=== PATIENT | female | born 1955 | race Caucasian/White ===

== ENCOUNTER → 2018-09-09 | Outpatient (CLI) | payer MEDICARE, OTHER ==
--- NOTE | 2018-09-09 10:49 | RAD ---
MR of the left shoulder Indication: Left shoulder pain for 6 months. No known injury. Technique: Standard multiplanar sequences are obtained. Findings: Artifact: There is motion degradation, as well as the limitations due to body habitus. Acromioclavicular joint: Mildly degenerative. Rotator cuff: * Supraspinatus-infraspinatus tendon: Tendinosis. No large or full-thickness rupture. * Subscapularis tendon: Tendinosis. No definite full-thickness or high-grade tear. * Muscle bulk: Moderate atrophy * Subacromial subdeltoid bursa: No significant effusion. Fluid: Moderate glenohumeral effusion. Glenohumeral cartilage: Severe chondral loss with subchondral bone flattening and volume loss. Subchondral edema and cysts. Labrum: Diffuse degeneration. Degenerative tearing of at least the superior labrum. Biceps tendon: Poorly seen Bones: Heterogeneous marrow signal with edema in the proximal humerus and glenoid may be reactive or degenerative. No aggressive bone destruction is seen. Soft tissue: No acute findings. Impression: 1. Exam limited by motion. 2. Rotator cuff tendinosis without large full-thickness tear. 3. Severe primary glenohumeral joint osteoarthritis. 4. Moderate joint effusion. 5. Circumferential labral degeneration, with tearing of at least the superior labrum. 6. Poorly seen biceps tendon, likely due to a tear. Electronically signed by: Sukh Lopez MD (09/09/2018 10:46 AM) [facility]
== END | disposition home or self-care (01) ==
LOC: MRI 09:32
PROVIDERS: ATTEND Internal Medicine
DX: S43.492A Other sprain of left shoulder joint, initial encounter (principal); M19.012 Primary osteoarthritis, left shoulder; M25.412 Effusion, left shoulder; M85.612 Other cyst of bone, left shoulder; M62.512 Muscle wasting and atrophy, not elsewhere classified, left shoulder; R60.0 Localized edema; X58.XXXA Exposure to other specified factors, initial encounter; Y93.89 Activity, other specified; Y92.89 Other specified places as the place of occurrence of the external cause; Y99.8 Other external cause status
CPT/HCPCS: 73221

== ENCOUNTER 2019-02-02 09:21 | Inpatient (IN) | payer MEDICARE, OTHER ==
[~2019-02-02] VITALS: Ht 165.1 cm; Wt 142.7 kg
[2019-02-02] MEDS ORDERED: cefTRIAXone IV Push 1 GM VIAL. IVP ONE (09:45)
--- NOTE | 2019-02-02 10:07 | RAD ---
CHEST AP ONLY Clinical Indication: FEVER Comparison: Two-view chest, June 11, 2005. CT chest with contrast, December 05, 2017. Findings: Patient is rotated. Mild cardiomegaly. Thickening of the right paratracheal stripe. Borderline fullness at the AP window. Right upper lung airspace disease. Bilateral perihilar opacities may be due to adenopathy as was seen on prior CT. Linear opacity in the left midlung. Mild bibasilar airspace disease. No pleural effusion or pneumothorax. Degenerative arthropathy of the shoulders. IMPRESSION: 1. Bilateral infiltrates. 2. Suspect mediastinal and bilateral hilar adenopathy, as was seen on prior CT. Electronically signed by: Adam Inman MD (02/02/2019 10:04 AM) [id number]
[2019-02-02 10:17] LABS: BASO # 0.1 x10^3/uL (0.0-0.2); BASO % 0 % (0-3); EOS % 0 % (0-3); HEMATOCRIT 41.1 % (36.0-47.0); LYMPH # 0.3 x10^3/uL (1.0-4.8); LYMPH % 1 % (24-48); MEAN CORPUSCULAR HEMOGLOBIN 25 pg (25-35); MEAN CORPUSCULAR HGB CONC 32 g/dL (31-37); MEAN CORPUSCULAR VOLUME 78 fL (79-100); MONO % 4 % (0-9); NEUT # 27.6 x10^3uL (1.8-7.7); NEUT % 95 % (31-73); PLATELET COUNT 206 x10^3/uL (140-400); RED BLOOD COUNT 5.26 x10^6/uL (3.50-5.40); RED CELL DISTRIBUTION WIDTH 15.8 % (11.5-14.5); WHITE BLOOD COUNT 29.1 x10^3/uL (4.0-11.0)
[2019-02-02 10:20] LABS: CALCIUM 9.2 mg/dL (8.5-10.1); POTASSIUM 4.1 mmol/L (3.5-5.1)
[2019-02-02 10:25] LABS: ALBUMIN 2.8 g/dL (3.4-5.0); ALBUMIN/GLOBULIN RATIO 0.6 (1.0-1.7); TOTAL BILIRUBIN 0.4 mg/dL (0.2-1.0); TOTAL PROTEIN 7.5 g/dL (6.4-8.2)
[2019-02-02 10:33] LABS: INFLUENZA A PATIENT NEGATIVE (NEGATIVE)
[2019-02-02 10:34] LABS: INFLUENZA B PATIENT NEGATIVE (NEGATIVE)
--- NOTE | 2019-02-02 10:35 | PHYS DOC ---
Adult General Chief Complaint Chief Complaint: ALTERED MENTAL STATUS HPI HPI 63-[facility] female [facility] patient who is wheelchair bound was found by [facility] staff this morning lethargic with altered mental status on the commode. Patient states she just feels terrible. She has some cough and congestion that she states is nonproductive. She's had a recent urinary tract infection. She denies any significant abdominal pain or back pain. She has not had any skin lesions that she is aware of. She did have some fever as high as 100 [facility] at the [facility]. She states she feels warm right now.[] Review of Systems Review of Systems Constitutional: Denies fever or chills [] Eyes: Denies change in visual acuity, redness, or eye pain [] HENT: Denies nasal congestion or sore throat [] Respiratory: Reports cough[] Cardiovascular: No additional information not addressed in HPI [] GI: Denies abdominal pain, nausea, vomiting, bloody stools or diarrhea [] : Recent urinary tract infection[] Musculoskeletal: Denies back pain or joint pain [] Integument: Denies rash or skin lesions [] Neurologic: Confusion] Endocrine: Denies polyuria or polydipsia [] All other systems were reviewed and found to be within normal limits, except as documented in this note. Current Medications Current Medications Current Medications Medications (Trade) Dose Ordered Sig/Holden Start Time Stop Time Status Last Admin Dose Admin Ceftriaxone Sodium (Rocephin) 1 gm 1X ONCE 02/02/19 09:45 02/02/19 09:46 UNV Physical Exam Physical Exam Constitutional: Well developed, well nourished, mild distress, non-toxic appearance. [] HENT: Normocephalic, atraumatic, bilateral external ears normal, oropharynx moist, no oral exudates, nose normal. [] Eyes: PERRLA, EOMI, conjunctiva normal, no discharge. [] Neck: Normal range of motion, no tenderness, supple, no stridor. [] Cardiovascular:Heart rate regular rhythm, no murmur [] Lungs & Thorax: Bilateral breath sounds clear to auscultation [] Abdomen: Bowel sounds normal, soft, no tenderness, no masses, no pulsatile masses, morbidly obese. [] Skin: Warm, dry, no erythema, no rash. [] Back: No tenderness, no CVA tenderness. [] Extremities: No tenderness, no cyanosis, no clubbing, ROM intact, no edema. [] Neurologic: Alert and oriented X 3, normal motor function, normal sensory function, no focal deficits noted. [] Psychologic: Affect normal, judgement normal, mood normal. [] Current Patient Data Vital Signs Vital Signs Date Time Temp Pulse Resp B/P (MAP) Pulse Ox O2 Delivery O2 Flow Rate FiO2 02/02/19 09:25 99.1 77 109/59 (76) Room Air 99.1 Lab Values Laboratory Tests Test 02/02/19 09:50 White Blood Count 29.1 x10^3/uL (4.0-11.0) H Red Blood Count 5.26 x10^6/uL (3.50-5.40) Hemoglobin 13.0 g/dL (12.0-15.5) Hematocrit 41.1 % (36.0-47.0) Mean Corpuscular Volume 78 fL (79-100) L Mean Corpuscular Hemoglobin 25 pg (25-35) Mean Corpuscular Hemoglobin Concent 32 g/dL (31-37) Red Cell Distribution Width 15.8 % (11.5-14.5) H Platelet Count 206 x10^3/uL (140-400) Neutrophils (%) (Auto) 95 % (31-73) H Lymphocytes (%) (Auto) 1 % (24-48) L Monocytes (%) (Auto) 4 % (0-9) Eosinophils (%) (Auto) 0 % (0-3) Basophils (%) (Auto) 0 % (0-3) Neutrophils # (Auto) 27.6 x10^3uL (1.8-7.7) H Lymphocytes # (Auto) 0.3 x10^3/uL (1.0-4.8) L Monocytes # (Auto) 1.0 x10^3/uL (0.0-1.1) Eosinophils # (Auto) 0.0 x10^3/uL (0.0-0.7) Basophils # (Auto) 0.1 x10^3/uL (0.0-0.2) Segmented Neutrophils % 68 % (35-66) H Band Neutrophils % 27 % (0-9) H Lymphocytes % 2 % (24-48) L Monocytes % 3 % (0-10) Toxic Granulation Present Platelet Estimate Adequate (ADEQUATE) Large Platelets Present Hypochromasia Slight Anisocytosis Present Sodium Level 131 mmol/L (136-145) L Potassium Level 4.1 mmol/L (3.5-5.1) Chloride Level 92 mmol/L (98-107) L Carbon Dioxide Level 30 mmol/L (21-32) Anion Gap 9 (6-14) Blood Urea Nitrogen 21 mg/dL (7-20) H Creatinine 1.0 mg/dL (0.6-1.0) Estimated GFR (Cockcroft-Gault) 56.0 BUN/Creatinine Ratio 21 (6-20) H Glucose Level 141 mg/dL (70-99) H Lactic Acid Level 3.4 mmol/L (0.4-2.0) H Calcium Level 9.2 mg/dL (8.5-10.1) Total Bilirubin 0.4 mg/dL (0.2-1.0) Aspartate Amino Transferase (AST) 46 U/L (15-37) H Alanine Aminotransferase (ALT) 17 U/L (14-59) Alkaline Phosphatase 95 U/L (46-116) Troponin I Quantitative 0.101 ng/mL (0.000-0.055) Total Protein 7.5 g/dL (6.4-8.2) Albumin 2.8 g/dL (3.4-5.0) L Albumin/Globulin Ratio 0.6 (1.0-1.7) L Procalcitonin 9.11 ng/mL (0.00-0.10) H Influenza Type A Antigen Negative (NEGATIVE) Influenza Type B Antigen Negative (NEGATIVE) Laboratory Tests 02/02/19 09:50 Laboratory Tests 02/02/19 09:50 EKG EKG [] Interpretation Time: EKG: Normal sinus rhythm rate of [address]-T changes Radiology/Procedures Radiology/Procedures [] Impressions: REASON: fever PROCEDURE: CHEST AP ONLY CHEST AP ONLY Clinical Indication: FEVER Comparison: Two-view chest, June 11, 2005. CT chest with contrast, December 05, 2017. Findings: Patient is rotated. Mild cardiomegaly. Thickening of the right paratracheal stripe. Borderline fullness at the AP window. Right upper lung airspace disease. Bilateral perihilar opacities may be due to adenopathy as was seen on prior CT. Linear opacity in the left midlung. Mild bibasilar airspace disease. No pleural effusion or pneumothorax. Degenerative arthropathy of the shoulders. IMPRESSION: 1. Bilateral infiltrates. 2. Suspect mediastinal and bilateral hilar adenopathy, as was seen on prior CT. Course & Med Decision Making Course & Med Decision Making Pertinent Labs and Imaging studies reviewed. (See chart for details) [ED course: Evaluation reveals a 63-year-old chronically ill female. She presents today not doing well. It would appear that she is septic secondary to pneumonia and urinary tract infection I started her on Zosyn and vancomycin and gave her 2 L of IV fluids. Her lactic acid is elevated and she has an elevated white blood cell count. I spoke with Dr. Cobian who will accept this patient and continue down the sepsis pathway.] CRITICAL CARE: Time spent was 35 minutes. This includes medical management, evaluation, reevaluation, discussion with consultants and family. Critical Care does NOT include time spent on separately billed procedures. Dragon Disclaimer Dragon Disclaimer This electronic medical record was generated, in whole or in part, using a voice recognition dictation system. Departure Departure Impression: Primary Impression: Severe sepsis Disposition: ADMITTED INPATIENT Admitting Physician: Randi Patterson Condition: GUARDED Referrals: NO PCP (PCP) NICHOL HARRIS DO Feb 02, 2019 10:35
[2019-02-02] MEDS ORDERED: IV NORMAL SALINE 500ML BAG 500 ML IV PRN (10:45)
[2019-02-02] MEDS ORDERED: VANCOMYCIN 1GM IVPB FOR OMNI 250 ML IV ONE (10:45)
[2019-02-02] MEDS ORDERED: IV NORMAL SALINE 1000ML BAG 1,000 ML IV ONE (10:45)
[2019-02-02] MEDS ORDERED: ONDANSETRON PF 4 MG/2 ML VIAL. IV PRN (10:45)
[2019-02-02] MEDS ORDERED: PIPERACILLIN/TAZOBACTAM 3.375 GM in IV NORMAL SALINE 50ML 50 ML IV ONE (10:45)
[2019-02-02] MEDS: IPRATRPIUM/ALBUTEROL 0.5/2.5MG 3 ML NEBU. NEB SCH ×3 (11:08→19:32)
[2019-02-02] MEDS ORDERED: VANCOMYCIN 2 GM in IV NORMAL SALINE 500ML BAG 500 ML IV ONE (11:15)
[2019-02-02] MEDS: PIPERACILLIN/TAZOBACTAM 4.5 GM in IV NORMAL SALINE 100ML 100 ML IV SCH ×2 (11:48→17:45)
[2019-02-02] MEDS: IV NORMAL SALINE 1000ML BAG 1,000 ML IV SCH ×4 (11:50→17:47)
[2019-02-02] MEDS ORDERED: PIPERACILLIN/TAZOBACTAM 4.5 GM in IV NORMAL SALINE 100ML 100 ML IV SCH (12:00)
--- NOTE | 2019-02-02 12:10 | HP ---
ADMIT DATE: 02/02/2019 CHIEF COMPLAINT: Weakness, fevers. HISTORY OF PRESENT ILLNESS: The patient is a pleasant 63-year-old female who presents with weakness and fevers that have been occurring for a couple of days, rated at 10/10. She has associated nausea, tried taking some home meds, but that did not work. She describes as agonizing. Clinically in the ER here, she appears to be septic. Her lactic acid is little high at 3.9. She is tachycardic, her white count of 30,000. She clinically appears very sick. Discussed the case with the ER physician. We are going to admit the patient and consult Infectious Disease and Pulmonary because her chest x-ray showing bilateral pneumonia. PAST MEDICAL HISTORY: Obesity, hirsutism, hypertension. ALLERGIES: STATINS, AZITHROMYCIN, CEFTRIAXONE, CIPRO, CLINDAMYCIN, FORMOTEROL, LASIX, LORAZEPAM, MORPHINE, MUPIROCIN, SULPHUR. FAMILY HISTORY: Hypertension. SOCIAL HISTORY: I think she lives in a facility. She does not drink, smoke or take drugs. MEDICATIONS: Reviewed, please refer to the MRAD. REVIEW OF SYSTEMS: Unable to obtain. The patient is just too weak and barely open her eyes. PHYSICAL EXAMINATION: VITAL SIGNS: Temperature 99, pulse 80, respirations 20, blood pressure 109/59. GENERAL: She is very somnolent. I was able to get her to open her eyes, but that was about it. HEART: Distant S1, S2, tachycardic at times. LUNGS: Coarse. ABDOMEN: Soft and obese. EXTREMITIES: 1+ edema. SKIN: She has got a lot of excessive hair growth on her face and legs. ENDOCRINE: No thyromegaly. LYMPHATICS: No cervical chain nodes. HEMATOPOIETIC: No bruising. PSYCHIATRIC: She appears very depressed. LABORATORY DATA: White count 29, hemoglobin 13, platelets 206. Electrolytes: Sodium 131, potassium 4.1, chloride 92, bicarbonate 30, BUN 21, creatinine 1, glucose 141. Lactic acid 3.4, AST 46. Troponin 0.10. Flu testing is negative. Chest x-ray shows bilateral infiltrates and some mediastinal and hilar adenopathy, which was seen on a previous CT. ASSESSMENT AND PLAN: Clinical sepsis, bilateral pneumonia, electrolyte disturbance with hyponatremia, azotemia, hyperglycemia, lactic acidosis, transaminitis and elevated troponin. The patient has been admitted. We will consult Infectious Disease and Pulmonary. IV antibiotics including Zosyn and vancomycin to start until ID sees her. Deep venous thrombosis prophylaxis. Full code. Home meds, frequent labs, p.r.n. Zofran, IV fluids per sepsis protocol this is a critically ill patient. TOTAL TIME: 33 minutes. CHINA GOYAL DO DR: HUGO/ted JOB#: [id number] / [id number]
[2019-02-02 12:18] LABS: % BANDS 27 % (0-9); % LYMPHS 2 % (24-48); % MONOS 3 % (0-10); % SEGS 68 % (35-66); PLT ESTIMATE ADEQUATE (ADEQUATE)
[2019-02-02 12:20] LABS: ANISOCYTOSIS PRESENT; HYPOCHROMIA SLIGHT; TOXIC GRANULATION PRESENT
[2019-02-02] MEDS: VANCOMYCIN PER PHARMACY MC PRN (13:15)
--- NOTE | 2019-02-02 13:34 | NUR ---
Pharmacy Vancomycin Dosing Note S:Consulted to monitor and dose vancomycin started 02/02/19. O:ROGE RAM is a 63 year old F with Sepsis Pneumonia . Height: 5 feet, 4 inches Weight: 113.568976 kg [place] Body Weight: 54.70 Adjusted Body Weight: 78.18 Dosing Weight: Actual Other Antibiotics: zOSYN LABS: Last BUN: 21 Last Creatinine: 1.0 Creatinine Clearance: 71 mL/min Last WBC: 29.1 Last Procalcitonin: Tmax (past 24 hours): 99.1 Microbiology: I/O: Drug Levels: Last level: on at Last dose given 02/02/19 at 1149 Vancomycin Dosing: Loading Dose: 2000 mg x1 Dosing Weight: Actual Target Trough: 15-20 A: Based on weight and est. CrCl: P: 1. Begin Vancomycin 2000 mg IV q12h. 2. Follow up Trough level on 02/03/19 at 2330. 3. Pharmacy will continue to monitor, follow and adjust therapy as needed. Khris Mcwilliams, [facility], 02/02/19 [id number]
[2019-02-02] MEDS ORDERED: CEFEPIME HCL IV Push 2 GM VIAL. IVP SCH (14:00)
[2019-02-02 14:06] LABS: BILIRUBIN,URINE NEGATIVE (NEG); CLARITY,URINE CLEAR; COLOR,URINE YELLOW; NITRITE,URINE NEGATIVE (NEG); PH,URINE 7.5; PROTEIN,URINE NEGATIVE (NEG-TRACE)
[2019-02-02 14:18] LABS: BACTERIA,URINE MANY /HPF (0-FEW); SQUAMOUS EPITHELIAL CELL,UR FEW /LPF; WBC,URINE TNTC /HPF (0-4)
--- NOTE | 2019-02-02 14:25 | EKG ---
[facility] [address] [place] [address] Test Date: 2019-02-02 Test Time: 10:17:20 Pat Name: ROGE RAM Department: Room: [facility] Gender: F Vial Gauger: : 1955 Requested By: NICHOL HARRIS Order Number: [id number] Reading MD: Santo Stahl MD Measurements Intervals [place] Rate: 80 P: 150 WY: 188 QRS: -137 QRSD: 108 T: 167 QT: 372 QTc: 433 Interpretive Statements SINUS RHYTHM LIMB LEAD MISLPACEMENT NON-SPECIFIC ST/T CHANGES Electronically Signed On 02-03-2019 10:47:19 CDT by Santo Stahl MD
[2019-02-02 14:45] VITALS: BP 154/79
[2019-02-02] MEDS ORDERED: DEXTROSE 50% 25 GM / 50ML DISP.SYRIN. IV PRN (17:00)
--- NOTE | 2019-02-02 17:15 | NUR ---
Spoke with Dr. Jackson re: concerns about pt's breathing. Orders for STAT ABGs received. Respiratory therapy paged. Will continue to monitor.
[2019-02-02 17:31] LABS: BASE EXCESS ABG 4 mmol/L (-3-3); HCO3 ABG 29 mmol/L (21-28); PCO2 ABG 48 mmHg (35-46); PO2 ABG 53 mmHg (65-108)
[2019-02-02 17:33] LABS: FIO2 ABG 40
--- NOTE | 2019-02-02 17:36 | NUR ---
Spoke with Dr. Junior Mitchell re: new consult, gave her report on pt. No changes on abx, continue with rasheeda and walter for now. Will continue to monitor.
--- NOTE | 2019-02-02 17:42 | PDOC ---
PULMONARY PROGRESS NOTES Vitals Vital Signs Date Time Temp Pulse Resp B/P (MAP) Pulse Ox O2 Delivery O2 Flow Rate FiO2 02/02/19 17:25 98 Nasal Cannula 5.0 02/02/19 14:45 99.7 79 22 154/79 (104) 99.7 Labs Laboratory Tests Test 02/02/19 09:50 02/02/19 13:00 02/02/19 13:50 02/02/19 16:40 White Blood Count 29.1 x10^3/uL (4.0-11.0) Red Blood Count 5.26 x10^6/uL (3.50-5.40) Hemoglobin 13.0 g/dL (12.0-15.5) Hematocrit 41.1 % (36.0-47.0) Mean Corpuscular Volume 78 fL (79-100) Mean Corpuscular Hemoglobin 25 pg (25-35) Mean Corpuscular Hemoglobin Concent 32 g/dL (31-37) Red Cell Distribution Width 15.8 % (11.5-14.5) Platelet Count 206 x10^3/uL (140-400) Neutrophils (%) (Auto) 95 % (31-73) Lymphocytes (%) (Auto) 1 % (24-48) Monocytes (%) (Auto) 4 % (0-9) Eosinophils (%) (Auto) 0 % (0-3) Basophils (%) (Auto) 0 % (0-3) Neutrophils # (Auto) 27.6 x10^3uL (1.8-7.7) Lymphocytes # (Auto) 0.3 x10^3/uL (1.0-4.8) Monocytes # (Auto) 1.0 x10^3/uL (0.0-1.1) Eosinophils # (Auto) 0.0 x10^3/uL (0.0-0.7) Basophils # (Auto) 0.1 x10^3/uL (0.0-0.2) Segmented Neutrophils % 68 % (35-66) Band Neutrophils % 27 % (0-9) Lymphocytes % 2 % (24-48) Monocytes % 3 % (0-10) Toxic Granulation Present Platelet Estimate Adequate (ADEQUATE) Large Platelets Present Hypochromasia Slight Anisocytosis Present Sodium Level 131 mmol/L (136-145) Potassium Level 4.1 mmol/L (3.5-5.1) Chloride Level 92 mmol/L (98-107) Carbon Dioxide Level 30 mmol/L (21-32) Anion Gap 9 (6-14) Blood Urea Nitrogen 21 mg/dL (7-20) Creatinine 1.0 mg/dL (0.6-1.0) Estimated GFR (Cockcroft-Gault) 56.0 BUN/Creatinine Ratio 21 (6-20) Glucose Level 141 mg/dL (70-99) Lactic Acid Level 3.4 mmol/L (0.4-2.0) 3.1 mmol/L (0.4-2.0) Calcium Level 9.2 mg/dL (8.5-10.1) Total Bilirubin 0.4 mg/dL (0.2-1.0) Aspartate Amino Transf (AST/SGOT) 46 U/L (15-37) Alanine Aminotransferase (ALT/SGPT) 17 U/L (14-59) Alkaline Phosphatase 95 U/L (46-116) Troponin I Quantitative 0.101 ng/mL (0.000-0.055) 0.090 ng/mL (0.000-0.055) 0.042 ng/mL (0.000-0.055) Total Protein 7.5 g/dL (6.4-8.2) Albumin 2.8 g/dL (3.4-5.0) Albumin/Globulin Ratio 0.6 (1.0-1.7) Procalcitonin 9.11 ng/mL (0.00-0.10) Influenza Type A Antigen Negative (NEGATIVE) Influenza Type B Antigen Negative (NEGATIVE) Urine Collection Type U cath Urine Color Yellow Urine Clarity Clear Urine pH 7.5 Urine Specific [place] 1.015 Urine Protein Negative mg/dL (NEG-TRACE) Urine Glucose (UA) Negative mg/dL (NEG) Urine Ketones (Stick) Negative mg/dL (NEG) Urine Blood Small (NEG) Urine Nitrite Negative (NEG) Urine Bilirubin Negative (NEG) Urine Urobilinogen Dipstick 1.0 mg/dL (0.2 mg/dL) Urine Leukocyte Esterase Large (NEG) Urine RBC 3-5 /HPF (0-2) Urine WBC Tntc /HPF (0-4) Urine Squamous Epithelial Cells Few /LPF Urine Renal Epithelial Cells Few /LPF Urine Bacteria Many /HPF (0-FEW) Urine Mucus Marked /LPF Test 02/02/19 16:53 02/02/19 17:20 Glucose (Fingerstick) 63 mg/dL (70-99) Arterial Blood pH 7.41 (7.35-7.45) Arterial Blood pCO2 at Patient Temp 48 mmHg (35-46) Arterial Blood pO2 at Patient Temp 53 mmHg (65-108) Arterial Blood HCO3 29 mmol/L (21-28) Arterial Blood Base Excess 4 mmol/L (-3-3) FiO2 40 Laboratory Tests Test 02/02/19 09:50 02/02/19 13:00 02/02/19 13:50 02/02/19 16:40 White Blood Count 29.1 x10^3/uL (4.0-11.0) Red Blood Count 5.26 x10^6/uL (3.50-5.40) Hemoglobin 13.0 g/dL (12.0-15.5) Hematocrit 41.1 % (36.0-47.0) Mean Corpuscular Volume 78 fL (79-100) Mean Corpuscular Hemoglobin 25 pg (25-35) Mean Corpuscular Hemoglobin Concent 32 g/dL (31-37) Red Cell Distribution Width 15.8 % (11.5-14.5) Platelet Count 206 x10^3/uL (140-400) Neutrophils (%) (Auto) 95 % (31-73) Lymphocytes (%) (Auto) 1 % (24-48) Monocytes (%) (Auto) 4 % (0-9) Eosinophils (%) (Auto) 0 % (0-3) Basophils (%) (Auto) 0 % (0-3) Neutrophils # (Auto) 27.6 x10^3uL (1.8-7.7) Lymphocytes # (Auto) 0.3 x10^3/uL (1.0-4.8) Monocytes # (Auto) 1.0 x10^3/uL (0.0-1.1) Eosinophils # (Auto) 0.0 x10^3/uL (0.0-0.7) Basophils # (Auto) 0.1 x10^3/uL (0.0-0.2) Segmented Neutrophils % 68 % (35-66) Band Neutrophils % 27 % (0-9) Lymphocytes % 2 % (24-48) Monocytes % 3 % (0-10) Toxic Granulation Present Platelet Estimate Adequate (ADEQUATE) Large Platelets Present Hypochromasia Slight Anisocytosis Present Sodium Level 131 mmol/L (136-145) Potassium Level 4.1 mmol/L (3.5-5.1) Chloride Level 92 mmol/L (98-107) Carbon Dioxide Level 30 mmol/L (21-32) Anion Gap 9 (6-14) Blood Urea Nitrogen 21 mg/dL (7-20) Creatinine 1.0 mg/dL (0.6-1.0) Estimated GFR (Cockcroft-Gault) 56.0 BUN/Creatinine Ratio 21 (6-20) Glucose Level 141 mg/dL (70-99) Lactic Acid Level 3.4 mmol/L (0.4-2.0) 3.1 mmol/L (0.4-2.0) Calcium Level 9.2 mg/dL (8.5-10.1) Total Bilirubin 0.4 mg/dL (0.2-1.0) Aspartate Amino Transf (AST/SGOT) 46 U/L (15-37) Alanine Aminotransferase (ALT/SGPT) 17 U/L (14-59) Alkaline Phosphatase 95 U/L (46-116) Troponin I Quantitative 0.101 ng/mL (0.000-0.055) 0.090 ng/mL (0.000-0.055) 0.042 ng/mL (0.000-0.055) Total Protein 7.5 g/dL (6.4-8.2) Albumin 2.8 g/dL (3.4-5.0) Albumin/Globulin Ratio 0.6 (1.0-1.7) Procalcitonin 9.11 ng/mL (0.00-0.10) Influenza Type A Antigen Negative (NEGATIVE) Influenza Type B Antigen Negative (NEGATIVE) Urine Collection Type U cath Urine Color Yellow Urine Clarity Clear Urine pH 7.5 Urine Specific [place] 1.015 Urine Protein Negative mg/dL (NEG-TRACE) Urine Glucose (UA) Negative mg/dL (NEG) Urine Ketones (Stick) Negative mg/dL (NEG) Urine Blood Small (NEG) Urine Nitrite Negative (NEG) Urine Bilirubin Negative (NEG) Urine Urobilinogen Dipstick 1.0 mg/dL (0.2 mg/dL) Urine Leukocyte Esterase Large (NEG) Urine RBC 3-5 /HPF (0-2) Urine WBC Tntc /HPF (0-4) Urine Squamous Epithelial Cells Few /LPF Urine Renal Epithelial Cells Few /LPF Urine Bacteria Many /HPF (0-FEW) Urine Mucus Marked /LPF Test 02/02/19 16:53 02/02/19 17:20 Glucose (Fingerstick) 63 mg/dL (70-99) Arterial Blood pH 7.41 (7.35-7.45) Arterial Blood pCO2 at Patient Temp 48 mmHg (35-46) Arterial Blood pO2 at Patient Temp 53 mmHg (65-108) Arterial Blood HCO3 29 mmol/L (21-28) Arterial Blood Base Excess 4 mmol/L (-3-3) FiO2 40 Impression . NOTE DICTATED ACUTE RESP FAILURE SEPSIS SEE ORDERS THANKS SAUD WASHBURN MD Feb 02, 2019 17:42
[2019-02-02] MEDS: INSULIN LISPRO 300 UNITS/3 ML INSULN.PEN. SQ SCH (17:46)
[2019-02-02 19:48] VITALS: BP 132/69
[2019-02-02] MEDS: NYSTATIN TOPICAL POWDER 15GM BOTTLE. TP SCH (20:04)
[2019-02-02] MEDS ORDERED: ALBU2.5V5 NEB (20:33)
[2019-02-02] MEDS ORDERED: OXYB15TA PO (20:33)
[2019-02-02] MEDS ORDERED: CITA40TA12 PO (20:33)
[2019-02-02] MEDS ORDERED: LEVO175T5 PO (20:33)
[2019-02-02] MEDS ORDERED: RIVA20TA2 PO (20:33)
[2019-02-02] MEDS ORDERED: CHOL500051 PO (20:33)
[2019-02-02] MEDS ORDERED: PANT20TA2 PO (20:33)
[2019-02-02] MEDS ORDERED: PREG75CA PO (20:33)
[2019-02-02] MEDS ORDERED: DEXT15DR5 EACHEYE (20:33)
[2019-02-02] MEDS ORDERED: TRAZ-118 PO (20:33)
[2019-02-02] MEDS ORDERED: MECL25TA3 PO (20:33)
[2019-02-02] MEDS ORDERED: POTA20TA82 PO (20:33)
[2019-02-02] MEDS ORDERED: AMLO5TAB10 PO (20:33)
[2019-02-02] MEDS ORDERED: FURO-69 PO (20:33)
[2019-02-02] MEDS ORDERED: CALCIUM ALGINATE TP (20:33)
[2019-02-02] MEDS ORDERED: ALBU2.5V8 IH (20:33)
[2019-02-02] MEDS ORDERED: HYDR25TA PO (20:33)
[2019-02-02] MEDS ORDERED: MENT118G TP (20:33)
[2019-02-02] MEDS ORDERED: NEOM1OIN6 TP (20:33)
[2019-02-02] MEDS ORDERED: RISP1TAB43 PO (20:33)
[2019-02-02] MEDS ORDERED: TRAM50TA PO (20:33)
[2019-02-02] MEDS ORDERED: BACL10TA PO (20:33)
[2019-02-02] MEDS ORDERED: POLY17PO29 PO (20:33)
[2019-02-02] MEDS ORDERED: ACET500T33 PO (20:33)
[2019-02-02] MEDS ORDERED: TRIA15OI TP (20:33)
[2019-02-02] MEDS ORDERED: DIVA500T17 PO ×2 (20:33)
[2019-02-02] MEDS ORDERED: PILO5TAB16 PO (20:33)
[2019-02-02] MEDS ORDERED: CELE200C PO (20:33)
[2019-02-02] MEDS ORDERED: BUDE0.5A NEB (20:33)
[2019-02-02] MEDS ORDERED: LORA10TA3 PO (20:33)
[2019-02-02] MEDS ORDERED: DOCU-109 PO (20:33)
[2019-02-02] MEDS ORDERED: LIFI1DRO OP (20:33)
[2019-02-02 23:43] VITALS: BP 142/64
[2019-02-03] MEDS: IV NORMAL SALINE 1000ML BAG 1,000 ML IV SCH ×2 (00:20→08:01)
[2019-02-03] MEDS: ACETAMINOPHEN 325 MG TABLET. PO PRN ×2 (00:25→06:31)
[2019-02-03] MEDS: PIPERACILLIN/TAZOBACTAM 4.5 GM in IV NORMAL SALINE 100ML 100 ML IV SCH ×5 (00:26→23:23)
[2019-02-03] MEDS: VANCOMYCIN 2 GM in IV NORMAL SALINE 500ML BAG 500 ML IV SCH ×2 (01:16→13:05)
[2019-02-03 03:36] VITALS: BP 146/62
--- NOTE | 2019-02-03 04:59 | CONS ---
DATE OF CONSULTATION: 02/02/2019 ATTENDING PHYSICIAN: Dr. Patterson. REASON FOR CONSULTATION: The patient is seen in pulmonary consultation at the request of Dr. Patterson for abnormal chest x-ray. HISTORY OF PRESENT ILLNESS: The patient is a 63-year-old female who presented with weakness, fever, possible temperature elevation. She had bilateral pulmonary infiltrates on x-ray, possibly adenopathy. I was asked to see her in consultation. Currently, the patient is sleepy, but arousable. She is unable to provide much history. Her lactic acid level was elevated. White count was elevated. She was admitted. She received some IV antibiotics in the Emergency Department. I was asked to her see in consultation for further evaluation and management. PAST MEDICAL HISTORY: Obesity, hypertension. ALLERGIES: TO MULTIPLE MEDICATIONS INCLUDING STATIN, AZITHROMYCIN, CEFTRIAXONE, CIPRO, CLINDAMYCIN. CURRENT MEDICATIONS: List was reviewed. FAMILY HISTORY: Hypertension. SOCIAL HISTORY: She lives in a facility. There is no history of tobacco use. REVIEW OF SYSTEMS: Unobtainable secondary to the patient's condition. PHYSICAL EXAMINATION: VITAL SIGNS: Stable. O2 saturation was greater than 92%. HEENT: Eyes, the sclerae were nonicteric. NECK: Jugular venous distention could not be assessed secondary to body habitus. CHEST: Full expansion. LUNGS: Crackles, no wheezes. CARDIOVASCULAR: Regular rate and rhythm with S1, S2. No S3. ABDOMEN: Soft, nontender, nondistended. EXTREMITIES: No clubbing or cyanosis. Marked edema with cellulitis of the left leg. NEUROLOGIC: The patient was sleepy, but arousable. Chest x-ray is as indicated above. LABORATORY DATA: White count was 29,000, hemoglobin and hematocrit were noted. Arterial blood gas pH 7.41, PaCO2 of 48, PaO2 of 53. UA was noted. Serology for influenza was negative. IMPRESSION: 1. Acute hypoxemic respiratory failure. 2. Sepsis. 3. Toxic metabolic encephalopathy. 4. Positive urinalysis, suspect urinary tract infection. 5. Multiple allergies as indicated above. 6. Obesity. PLAN: 1. The patient will continue current Zosyn and vancomycin. 2. CT chest. 3. P.r.n. BiPAP. 4. Continue oxygen supplementation. 5. Deep venous thrombosis and gastrointestinal prophylaxis. I do appreciate the privilege in sharing in the patient's care. SAUD WASHBURN MD DR: Francesca JOB#: [id number] / [id number]
[2019-02-03 07:00] VITALS: BP 143/67
[2019-02-03] MEDS: INSULIN LISPRO 300 UNITS/3 ML INSULN.PEN. SQ SCH (08:00)
[2019-02-03 08:03] LABS: BASO % 0 % (0-3); EOS % 0 % (0-3); HEMATOCRIT 34.1 % (36.0-47.0); HEMOGLOBIN 11.1 g/dL (12.0-15.5); LYMPH # 0.6 x10^3/uL (1.0-4.8); LYMPH % 6 % (24-48); MEAN CORPUSCULAR HEMOGLOBIN 26 pg (25-35); MEAN CORPUSCULAR HGB CONC 33 g/dL (31-37); MEAN CORPUSCULAR VOLUME 79 fL (79-100); MONO # 0.6 x10^3/uL (0.0-1.1); MONO % 6 % (0-9); NEUT # 8.9 x10^3uL (1.8-7.7); NEUT % 88 % (31-73); PLATELET COUNT 133 x10^3/uL (140-400); RED BLOOD COUNT 4.31 x10^6/uL (3.50-5.40); RED CELL DISTRIBUTION WIDTH 16.2 % (11.5-14.5); WHITE BLOOD COUNT 10.2 x10^3/uL (4.0-11.0)
[2019-02-03 08:27] LABS: ALBUMIN 1.9 g/dL (3.4-5.0); ALBUMIN/GLOBULIN RATIO 0.5 (1.0-1.7); CALCIUM 7.9 mg/dL (8.5-10.1); CREATININE 0.6 mg/dL (0.6-1.0); POTASSIUM 3.4 mmol/L (3.5-5.1); TOTAL BILIRUBIN 0.2 mg/dL (0.2-1.0); TOTAL PROTEIN 5.9 g/dL (6.4-8.2)
[2019-02-03] MEDS ORDERED: POTASSIUM CHLORIDE 20 MEQ TABLET.ER. PO ONE (09:00)
[2019-02-03] MEDS ORDERED: POLYETHYLENE GLYCOL 3350 17 GM PACKET. PO PRN (09:00)
[2019-02-03] MEDS ORDERED: diphenhydrAMINE HCL 25 MG CAPSULE PO PRN (09:15)
[2019-02-03] MEDS ORDERED: BENZOCAINE/MENTHOL LOZENGE. PO PRN (09:15)
[2019-02-03] MEDS ORDERED: guaiFENesin DM 200MG/20MG 10 ML SYRUP PO PRN (09:15)
[2019-02-03] MEDS ORDERED: CALCIUM CARBONATE 500 MG TAB.CHEW PO PRN (09:15)
--- NOTE | 2019-02-03 09:28 | PDOC ---
PULMONARY PROGRESS NOTES Subjective PT MORE AWAKE AND LESS SOA Vitals Vital Signs Date Time Temp Pulse Resp B/P (MAP) Pulse Ox O2 Delivery O2 Flow Rate FiO2 02/03/19 07:00 97.4 68 20 143/67 (92) 98 BiPAP/CPAP 97.4 02/02/19 19:48 4.0 ROS: No Nausea, No Chest Pain, No Abdominal Pain, No Increase Cough Lungs: Wheezing Cardiovascular: S1, S2 Abdomen: Soft, Other (OBESE) Neuro Exam: Alert Extremities: Other (EDEMA) Skin: Warm Labs Laboratory Tests Test 02/02/19 09:50 02/02/19 13:00 02/02/19 13:50 02/02/19 16:40 White Blood Count 29.1 x10^3/uL (4.0-11.0) Red Blood Count 5.26 x10^6/uL (3.50-5.40) Hemoglobin 13.0 g/dL (12.0-15.5) Hematocrit 41.1 % (36.0-47.0) Mean Corpuscular Volume 78 fL (79-100) Mean Corpuscular Hemoglobin 25 pg (25-35) Mean Corpuscular Hemoglobin Concent 32 g/dL (31-37) Red Cell Distribution Width 15.8 % (11.5-14.5) Platelet Count 206 x10^3/uL (140-400) Neutrophils (%) (Auto) 95 % (31-73) Lymphocytes (%) (Auto) 1 % (24-48) Monocytes (%) (Auto) 4 % (0-9) Eosinophils (%) (Auto) 0 % (0-3) Basophils (%) (Auto) 0 % (0-3) Neutrophils # (Auto) 27.6 x10^3uL (1.8-7.7) Lymphocytes # (Auto) 0.3 x10^3/uL (1.0-4.8) Monocytes # (Auto) 1.0 x10^3/uL (0.0-1.1) Eosinophils # (Auto) 0.0 x10^3/uL (0.0-0.7) Basophils # (Auto) 0.1 x10^3/uL (0.0-0.2) Segmented Neutrophils % 68 % (35-66) Band Neutrophils % 27 % (0-9) Lymphocytes % 2 % (24-48) Monocytes % 3 % (0-10) Toxic Granulation Present Platelet Estimate Adequate (ADEQUATE) Large Platelets Present Hypochromasia Slight Anisocytosis Present Sodium Level 131 mmol/L (136-145) Potassium Level 4.1 mmol/L (3.5-5.1) Chloride Level 92 mmol/L (98-107) Carbon Dioxide Level 30 mmol/L (21-32) Anion Gap 9 (6-14) Blood Urea Nitrogen 21 mg/dL (7-20) Creatinine 1.0 mg/dL (0.6-1.0) Estimated GFR (Cockcroft-Gault) 56.0 BUN/Creatinine Ratio 21 (6-20) Glucose Level 141 mg/dL (70-99) Lactic Acid Level 3.4 mmol/L (0.4-2.0) 3.1 mmol/L (0.4-2.0) Calcium Level 9.2 mg/dL (8.5-10.1) Total Bilirubin 0.4 mg/dL (0.2-1.0) Aspartate Amino Transf (AST/SGOT) 46 U/L (15-37) Alanine Aminotransferase (ALT/SGPT) 17 U/L (14-59) Alkaline Phosphatase 95 U/L (46-116) Troponin I Quantitative 0.101 ng/mL (0.000-0.055) 0.090 ng/mL (0.000-0.055) 0.042 ng/mL (0.000-0.055) Total Protein 7.5 g/dL (6.4-8.2) Albumin 2.8 g/dL (3.4-5.0) Albumin/Globulin Ratio 0.6 (1.0-1.7) Procalcitonin 9.11 ng/mL (0.00-0.10) Influenza Type A Antigen Negative (NEGATIVE) Influenza Type B Antigen Negative (NEGATIVE) Urine Collection Type U cath Urine Color Yellow Urine Clarity Clear Urine pH 7.5 Urine Specific [place] 1.015 Urine Protein Negative mg/dL (NEG-TRACE) Urine Glucose (UA) Negative mg/dL (NEG) Urine Ketones (Stick) Negative mg/dL (NEG) Urine Blood Small (NEG) Urine Nitrite Negative (NEG) Urine Bilirubin Negative (NEG) Urine Urobilinogen Dipstick 1.0 mg/dL (0.2 mg/dL) Urine Leukocyte Esterase Large (NEG) Urine RBC 3-5 /HPF (0-2) Urine WBC Tntc /HPF (0-4) Urine Squamous Epithelial Cells Few /LPF Urine Renal Epithelial Cells Few /LPF Urine Bacteria Many /HPF (0-FEW) Urine Mucus Marked /LPF Test 02/02/19 16:53 02/02/19 17:20 02/02/19 20:55 02/02/19 21:00 Glucose (Fingerstick) 63 mg/dL (70-99) 95 mg/dL (70-99) Arterial Blood pH 7.41 (7.35-7.45) Arterial Blood pCO2 at Patient Temp 48 mmHg (35-46) Arterial Blood pO2 at Patient Temp 53 mmHg (65-108) Arterial Blood HCO3 29 mmol/L (21-28) Arterial Blood Base Excess 4 mmol/L (-3-3) FiO2 40 Lactic Acid Level 0.7 mmol/L (0.4-2.0) Test 02/03/19 07:25 02/03/19 07:33 White Blood Count 10.2 x10^3/uL (4.0-11.0) Red Blood Count 4.31 x10^6/uL (3.50-5.40) Hemoglobin 11.1 g/dL (12.0-15.5) Hematocrit 34.1 % (36.0-47.0) Mean Corpuscular Volume 79 fL (79-100) Mean Corpuscular Hemoglobin 26 pg (25-35) Mean Corpuscular Hemoglobin Concent 33 g/dL (31-37) Red Cell Distribution Width 16.2 % (11.5-14.5) Platelet Count 133 x10^3/uL (140-400) Neutrophils (%) (Auto) 88 % (31-73) Lymphocytes (%) (Auto) 6 % (24-48) Monocytes (%) (Auto) 6 % (0-9) Eosinophils (%) (Auto) 0 % (0-3) Basophils (%) (Auto) 0 % (0-3) Neutrophils # (Auto) 8.9 x10^3uL (1.8-7.7) Lymphocytes # (Auto) 0.6 x10^3/uL (1.0-4.8) Monocytes # (Auto) 0.6 x10^3/uL (0.0-1.1) Eosinophils # (Auto) 0.0 x10^3/uL (0.0-0.7) Basophils # (Auto) 0.0 x10^3/uL (0.0-0.2) Sodium Level 140 mmol/L (136-145) Potassium Level 3.4 mmol/L (3.5-5.1) Chloride Level 102 mmol/L (98-107) Carbon Dioxide Level 31 mmol/L (21-32) Anion Gap 7 (6-14) Blood Urea Nitrogen 9 mg/dL (7-20) Creatinine 0.6 mg/dL (0.6-1.0) Estimated GFR (Cockcroft-Gault) 101.0 BUN/Creatinine Ratio 15 (6-20) Glucose Level 101 mg/dL (70-99) Calcium Level 7.9 mg/dL (8.5-10.1) Total Bilirubin 0.2 mg/dL (0.2-1.0) Aspartate Amino Transf (AST/SGOT) 66 U/L (15-37) Alanine Aminotransferase (ALT/SGPT) 23 U/L (14-59) Alkaline Phosphatase 72 U/L (46-116) Total Protein 5.9 g/dL (6.4-8.2) Albumin 1.9 g/dL (3.4-5.0) Albumin/Globulin Ratio 0.5 (1.0-1.7) Procalcitonin 5.33 ng/mL (0.00-0.10) Glucose (Fingerstick) 87 mg/dL (70-99) Laboratory Tests Test 02/02/19 09:50 02/02/19 13:00 02/02/19 13:50 02/02/19 16:40 White Blood Count 29.1 x10^3/uL (4.0-11.0) Red Blood Count 5.26 x10^6/uL (3.50-5.40) Hemoglobin 13.0 g/dL (12.0-15.5) Hematocrit 41.1 % (36.0-47.0) Mean Corpuscular Volume 78 fL (79-100) Mean Corpuscular Hemoglobin 25 pg (25-35) Mean Corpuscular Hemoglobin Concent 32 g/dL (31-37) Red Cell Distribution Width 15.8 % (11.5-14.5) Platelet Count 206 x10^3/uL (140-400) Neutrophils (%) (Auto) 95 % (31-73) Lymphocytes (%) (Auto) 1 % (24-48) Monocytes (%) (Auto) 4 % (0-9) Eosinophils (%) (Auto) 0 % (0-3) Basophils (%) (Auto) 0 % (0-3) Neutrophils # (Auto) 27.6 x10^3uL (1.8-7.7) Lymphocytes # (Auto) 0.3 x10^3/uL (1.0-4.8) Monocytes # (Auto) 1.0 x10^3/uL (0.0-1.1) Eosinophils # (Auto) 0.0 x10^3/uL (0.0-0.7) Basophils # (Auto) 0.1 x10^3/uL (0.0-0.2) Segmented Neutrophils % 68 % (35-66) Band Neutrophils % 27 % (0-9) Lymphocytes % 2 % (24-48) Monocytes % 3 % (0-10) Toxic Granulation Present Platelet Estimate Adequate (ADEQUATE) Large Platelets Present Hypochromasia Slight Anisocytosis Present Sodium Level 131 mmol/L (136-145) Potassium Level 4.1 mmol/L (3.5-5.1) Chloride Level 92 mmol/L (98-107) Carbon Dioxide Level 30 mmol/L (21-32) Anion Gap 9 (6-14) Blood Urea Nitrogen 21 mg/dL (7-20) Creatinine 1.0 mg/dL (0.6-1.0) Estimated GFR (Cockcroft-Gault) 56.0 BUN/Creatinine Ratio 21 (6-20) Glucose Level 141 mg/dL (70-99) Lactic Acid Level 3.4 mmol/L (0.4-2.0) 3.1 mmol/L (0.4-2.0) Calcium Level 9.2 mg/dL (8.5-10.1) Total Bilirubin 0.4 mg/dL (0.2-1.0) Aspartate Amino Transf (AST/SGOT) 46 U/L (15-37) Alanine Aminotransferase (ALT/SGPT) 17 U/L (14-59) Alkaline Phosphatase 95 U/L (46-116) Troponin I Quantitative 0.101 ng/mL (0.000-0.055) 0.090 ng/mL (0.000-0.055) 0.042 ng/mL (0.000-0.055) Total Protein 7.5 g/dL (6.4-8.2) Albumin 2.8 g/dL (3.4-5.0) Albumin/Globulin Ratio 0.6 (1.0-1.7) Procalcitonin 9.11 ng/mL (0.00-0.10) Influenza Type A Antigen Negative (NEGATIVE) Influenza Type B Antigen Negative (NEGATIVE) Urine Collection Type U cath Urine Color Yellow Urine Clarity Clear Urine pH 7.5 Urine Specific [place] 1.015 Urine Protein Negative mg/dL (NEG-TRACE) Urine Glucose (UA) Negative mg/dL (NEG) Urine Ketones (Stick) Negative mg/dL (NEG) Urine Blood Small (NEG) Urine Nitrite Negative (NEG) Urine Bilirubin Negative (NEG) Urine Urobilinogen Dipstick 1.0 mg/dL (0.2 mg/dL) Urine Leukocyte Esterase Large (NEG) Urine RBC 3-5 /HPF (0-2) Urine WBC Tntc /HPF (0-4) Urine Squamous Epithelial Cells Few /LPF Urine Renal Epithelial Cells Few /LPF Urine Bacteria Many /HPF (0-FEW) Urine Mucus Marked /LPF Test 02/02/19 16:53 02/02/19 17:20 02/02/19 20:55 02/02/19 21:00 Glucose (Fingerstick) 63 mg/dL (70-99) 95 mg/dL (70-99) Arterial Blood pH 7.41 (7.35-7.45) Arterial Blood pCO2 at Patient Temp 48 mmHg (35-46) Arterial Blood pO2 at Patient Temp 53 mmHg (65-108) Arterial Blood HCO3 29 mmol/L (21-28) Arterial Blood Base Excess 4 mmol/L (-3-3) FiO2 40 Lactic Acid Level 0.7 mmol/L (0.4-2.0) Test 02/03/19 07:25 02/03/19 07:33 White Blood Count 10.2 x10^3/uL (4.0-11.0) Red Blood Count 4.31 x10^6/uL (3.50-5.40) Hemoglobin 11.1 g/dL (12.0-15.5) Hematocrit 34.1 % (36.0-47.0) Mean Corpuscular Volume 79 fL (79-100) Mean Corpuscular Hemoglobin 26 pg (25-35) Mean Corpuscular Hemoglobin Concent 33 g/dL (31-37) Red Cell Distribution Width 16.2 % (11.5-14.5) Platelet Count 133 x10^3/uL (140-400) Neutrophils (%) (Auto) 88 % (31-73) Lymphocytes (%) (Auto) 6 % (24-48) Monocytes (%) (Auto) 6 % (0-9) Eosinophils (%) (Auto) 0 % (0-3) Basophils (%) (Auto) 0 % (0-3) Neutrophils # (Auto) 8.9 x10^3uL (1.8-7.7) Lymphocytes # (Auto) 0.6 x10^3/uL (1.0-4.8) Monocytes # (Auto) 0.6 x10^3/uL (0.0-1.1) Eosinophils # (Auto) 0.0 x10^3/uL (0.0-0.7) Basophils # (Auto) 0.0 x10^3/uL (0.0-0.2) Sodium Level 140 mmol/L (136-145) Potassium Level 3.4 mmol/L (3.5-5.1) Chloride Level 102 mmol/L (98-107) Carbon Dioxide Level 31 mmol/L (21-32) Anion Gap 7 (6-14) Blood Urea Nitrogen 9 mg/dL (7-20) Creatinine 0.6 mg/dL (0.6-1.0) Estimated GFR (Cockcroft-Gault) 101.0 BUN/Creatinine Ratio 15 (6-20) Glucose Level 101 mg/dL (70-99) Calcium Level 7.9 mg/dL (8.5-10.1) Total Bilirubin 0.2 mg/dL (0.2-1.0) Aspartate Amino Transf (AST/SGOT) 66 U/L (15-37) Alanine Aminotransferase (ALT/SGPT) 23 U/L (14-59) Alkaline Phosphatase 72 U/L (46-116) Total Protein 5.9 g/dL (6.4-8.2) Albumin 1.9 g/dL (3.4-5.0) Albumin/Globulin Ratio 0.5 (1.0-1.7) Procalcitonin 5.33 ng/mL (0.00-0.10) Glucose (Fingerstick) 87 mg/dL (70-99) Medications Active Scripts Medications Dose Route/Sig Max Daily Dose Days Date Category Dose Instructions Xiidra (Lifitegrast) 1 Each Droperette 1 Each OP BID 02/02/19 Reported Vitamin D (Cholecalciferol (Vitamin D3)) 5,000 Unit Capsule 5,000 Unit PO WEEKLY 02/02/19 Reported Tylenol Extra Strength (Acetaminophen) 500 Mg Tablet 2 Mg PO DAILY 02/02/19 Reported Triple Antibiotic Ointment (Neomy Sulf/Bacitrac Zn/Poly) 1 Each Oint.pack 1 Each TP HS 02/02/19 Reported Triamcinolone Acetonide 0.1% Oint (Triamcinolone Acetonide) 15 Gm Oint...g. 1 Rosa TP BID 02/02/19 Reported MIX WITH EUCERIN DIRECTED BY PHYSICIAN Trazodone Hcl 50 Mg Tablet 1 Tab PO QHS 02/02/19 Reported Tramadol Hcl 50 Mg Tablet 75 Mg PO TID PRN 02/02/19 Reported Xarelto (Rivaroxaban) 20 Mg Tablet 20 Mg PO DAILY 02/02/19 Reported Risperdal (Risperidone) 1 Mg Tablet 1 Mg PO QHS 02/02/19 Reported Proventil Hfa Inhaler (Albuterol Sulfate) 6.7 Gm Hfa.aer.ad 1 Puff IH PRN Q4HRS PRN 02/02/19 Reported Protonix (Pantoprazole Sodium) 20 Mg Tablet.dr 40 Mg PO DAILY 02/02/19 Reported Potassium Chloride 20 Meq Tablet.er 20 Meq PO DAILY 02/02/19 Reported Miralax (Polyethylene Glycol 3350) 17 Gm Powd.pack 1 Packet PO DAILY PRN 02/02/19 Reported Pilocarpine Hcl 5 Mg Tablet 10 Mg PO TID 02/02/19 Reported Oxybutynin Chloride Er (Oxybutynin Chloride) 15 Mg Tab.er.24 1 Tab PO DAILY 02/02/19 Reported Meclizine Hcl 25 Mg Tablet 1 Tab PO TID 02/02/19 Reported Lyrica (Pregabalin) 75 Mg Capsule 1 Cap PO TID 02/02/19 Reported Loratadine 10 Mg Tablet 1 Tab PO DAILY 02/02/19 Reported Levothyroxine Sodium 175 Mcg Tablet 1 Tab PO DAILY 02/02/19 Reported Lasix (Furosemide) 20 Mg Tablet 1 Tab PO DAILY 02/02/19 Reported Hydroxyzine Hcl 25 Mg Tablet 1 Tab PO BID 02/02/19 Reported Divalproex Sodium Er (Divalproex Sodium) 500 Mg Tab.er.24h 2 Tab PO QHS 02/02/19 Reported Divalproex Sodium Er (Divalproex Sodium) 500 Mg Tab.er.24h 1 Tab PO DAILY 02/02/19 Reported Colace (Docusate Sodium) 100 Mg Capsule 1 Cap PO BID 02/02/19 Reported Celexa (Citalopram Hydrobromide) 40 Mg Tablet 1 Tab PO DAILY 02/02/19 Reported Celebrex (Celecoxib) 200 Mg Capsule 1 Cap PO DAILY 02/02/19 Reported [calcium alginate] 1 Ea TP HS 02/02/19 Reported Budesonide 0.5 Mg/2 Ml Ampul.neb 1 Vial NEB BID 02/02/19 Reported Biofreeze (Menthol) 118 Ml Gel..ml. 118 Ml TP TID 02/02/19 Reported Baclofen 10 Mg Tablet 1 Tab PO TID 02/02/19 Reported Artificial Tears Eye Drops (Dextran 70/Hypromellose) 15 Ml Drops 1 Drop EACHEYE PRN PRN 02/02/19 Reported Amlodipine Besylate 5 Mg Tablet 5 Mg PO DAILY 02/02/19 Reported Albuterol Sulfate Neb Soln (Albuterol Sulfate) 2.5 Mg/3 Ml Vial.neb 1 Vial NEB PRN Q4HRS 02/02/19 Reported Impression . IMPRESSION: 1. Acute hypoxemic respiratory failure. 2. Sepsis. 3. Toxic metabolic encephalopathy. 4. Positive urinalysis, suspect urinary tract infection. 5. Multiple allergies as indicated above. 6. Obesity. CT CHEST 02/02 1. Patchy linear airspace opacities identified in the lungs likely atelectasis or infiltrates. Follow-up to resolution. 2. Enlarged appearing mediastinal and bilateral hilar lymph nodes identified, nonspecific. Examination limited due to lack of IV contrast. Plan . QHS BIPAP ANTIBX UP TO CHAIR PT DOES NOT WALK 1. The patient will continue current Zosyn and vancomycin. 2. CT chest. 3. P.r.n. BiPAP. 4. Continue oxygen supplementation. 5. Deep venous thrombosis and gastrointestinal prophylaxis. SAUD WASHBURN MD Feb 03, 2019 09:28
[2019-02-03] MEDS ORDERED: ACETAMINOPHEN/CODEINE 300/30MG TABLET. PO PRN (09:30)
[2019-02-03] MEDS ORDERED: ONDANSETRON PF 4 MG/2 ML VIAL. IV PRN (09:30)
[2019-02-03] MEDS ORDERED: ACETAMINOPHEN 500 MG TABLET PO PRN (09:30)
[2019-02-03] MEDS: IPRATRPIUM/ALBUTEROL 0.5/2.5MG 3 ML NEBU. NEB SCH ×3 (09:52→21:35)
[2019-02-03] MEDS ORDERED: MECLIZINE HCL 12.5 MG TABLET. PO PRN (10:00)
[2019-02-03] MEDS ORDERED: CHOLECALCIFEROL (VITAMIN D3) 5,000 UNIT CAPSULE PO SCH (10:00)
[2019-02-03] MEDS ORDERED: FUROSEMIDE 20 MG TABLET PO SCH (10:00)
[2019-02-03] MEDS ORDERED: METHYL SALICYLATE/MENTHOL TOPICAL OINTMENT 29GM TUBE. TP PRN (10:00)
--- NOTE | 2019-02-03 10:07 | RAD ---
Examination: CT chest without contrast HISTORY: History of sepsis, fever COMPARISON: 12/05/2017 TECHNIQUE: Axial CT images of chest were performed without contrast. Coronal and sagittal reformats are performed. Exposure: One or more of the following individualized dose reduction techniques were utilized for this examination: 1. Automated exposure control 2. Adjustment of the mA and/or kV according to patient size 3. Use of iterative reconstruction technique FINDINGS: Moderate cardiomegaly. Coronary artery calcifications identified. Enlarged mediastinal and bilateral hilar lymph nodes again identified however evaluation is limited without IV contrast. There are scattered linear airspace opacities identified in the right upper lobe, left lingula and bibasilar lungs likely atelectasis or infiltrates. No evidence of pleural effusion or pneumothorax. The visualized noncontrasted liver, spleen, adrenals grossly appears unremarkable. Moderate degenerative changes thoracic spine. IMPRESSION: 1. Patchy linear airspace opacities identified in the lungs likely atelectasis or infiltrates. Follow-up to resolution. 2. Enlarged appearing mediastinal and bilateral hilar lymph nodes identified, nonspecific. Examination limited due to lack of IV contrast. Electronically signed by: Elliott Robert MD (02/03/2019 10:04 AM) [id number]
[2019-02-03 10:29] LABS: % BANDS 21 % (0-9); % LYMPHS 5 % (24-48); % MONOS 6 % (0-10); % SEGS 68 % (35-66)
[2019-02-03 10:30] LABS: ANISOCYTOSIS PRESENT; PLT ESTIMATE DECREASED (ADEQUATE)
[2019-02-03] MEDS ORDERED: CELECOXIB 100 MG CAPSULE. PO SCH (10:30)
[2019-02-03 11:00] VITALS: BP 140/56
--- NOTE | 2019-02-03 11:33 | NUR ---
SW following pt for anticipated dc needs. Chart reviewed. SW confirmed with pt's sister, Adele, phone; [phone] and Nisa at [facility], phone: [phone], fax: [phone], Pt is LTC resident and plan of return upon dc. Will continue to follow.
[2019-02-03] MEDS: PILOCARPINE 5 MG TABLET. PO SCH ×3 (11:36→20:39)
[2019-02-03] MEDS: PREGABALIN 75 MG CAPSULE PO SCH ×3 (11:36→20:39)
--- NOTE | 2019-02-03 11:36 | PDOC ---
PROGRESS NOTES Chief Complaint Chief Complaint BIlateral infiltrates-pneumonia SNU resident Bedbound because of acute on chronic lymphedema Sepsis present on admission, elevated lactate 3.7, WBC 30 UTI in an SNU resident-, complicated UTI Mixed hypercapnic hypoxic respiratory failure - BIPAP AJ on CPAP at SNU Flu negative Fevers Obesity, BMI 50 DNR History of Present Illness History of Present Illness Sister at bedside who is the DPOA DNR SNU resident Bedbound because of acute and chronic lymphedema-claims she is on Lasix in SNU once a day Flu negative Pulmonary has ordered a chest CT-read is still pending WBC down to 10 from 30 on admission We are waiting for urine cultures She has an external wick ABG reviewed, pH 7.4, CO2 48, oh to 53, BiPAP at bedside Plan Await CT chest Await urine culture Replace potassium mildly low K3.4 Recheck lactate tomorrow Continue IV antibiotics Patient on Xarelto continue this Lasix once or twice a day IV Check lites while on IV diuretic DNR Vitals Vitals Vital Signs Date Time Temp Pulse Resp B/P (MAP) Pulse Ox O2 Delivery O2 Flow Rate FiO2 02/03/19 11:00 100.0 75 22 140/56 (84) 92 Nasal Cannula 4.0 100.0 Physical Exam General: Alert, Oriented X3, Cooperative, No acute distress Heart: Regular rate, Normal S1, Normal S2 Lungs: Other (diminished secondary to increased AP diameter, no wheezing) Abdomen: Normal bowel sounds, Soft, Other (obese, nontender, normoactive bowel sounds) Extremities: Other (S3 pitting edema, some excoriations of foot, red warm tender juice E left leg wounds-wound care consulted, lateral foot drop) Skin: Other (asper above) Labs LABS Laboratory Tests Test 02/02/19 13:00 02/02/19 13:50 02/02/19 16:40 02/02/19 16:53 Lactic Acid Level 3.1 mmol/L (0.4-2.0) Troponin I Quantitative 0.090 ng/mL (0.000-0.055) 0.042 ng/mL (0.000-0.055) Urine Collection Type U cath Urine Color Yellow Urine Clarity Clear Urine pH 7.5 Urine Specific [place] 1.015 Urine Protein Negative mg/dL (NEG-TRACE) Urine Glucose (UA) Negative mg/dL (NEG) Urine Ketones (Stick) Negative mg/dL (NEG) Urine Blood Small (NEG) Urine Nitrite Negative (NEG) Urine Bilirubin Negative (NEG) Urine Urobilinogen Dipstick 1.0 mg/dL (0.2 mg/dL) Urine Leukocyte Esterase Large (NEG) Urine RBC 3-5 /HPF (0-2) Urine WBC Tntc /HPF (0-4) Urine Squamous Epithelial Cells Few /LPF Urine Renal Epithelial Cells Few /LPF Urine Bacteria Many /HPF (0-FEW) Urine Mucus Marked /LPF Glucose (Fingerstick) 63 mg/dL (70-99) Test 02/02/19 17:20 02/02/19 20:55 02/02/19 21:00 02/03/19 07:25 O2 Saturation % (92-99) Arterial Blood pH 7.41 (7.35-7.45) Arterial Blood pCO2 at Patient Temp 48 mmHg (35-46) Arterial Blood pO2 at Patient Temp 53 mmHg (65-108) Arterial Blood HCO3 29 mmol/L (21-28) Arterial Blood Base Excess 4 mmol/L (-3-3) FiO2 40 Lactic Acid Level 0.7 mmol/L (0.4-2.0) Glucose (Fingerstick) 95 mg/dL (70-99) White Blood Count 10.2 x10^3/uL (4.0-11.0) Red Blood Count 4.31 x10^6/uL (3.50-5.40) Hemoglobin 11.1 g/dL (12.0-15.5) Hematocrit 34.1 % (36.0-47.0) Mean Corpuscular Volume 79 fL (79-100) Mean Corpuscular Hemoglobin 26 pg (25-35) Mean Corpuscular Hemoglobin Concent 33 g/dL (31-37) Red Cell Distribution Width 16.2 % (11.5-14.5) Platelet Count 133 x10^3/uL (140-400) Neutrophils (%) (Auto) 88 % (31-73) Lymphocytes (%) (Auto) 6 % (24-48) Monocytes (%) (Auto) 6 % (0-9) Eosinophils (%) (Auto) 0 % (0-3) Basophils (%) (Auto) 0 % (0-3) Neutrophils # (Auto) 8.9 x10^3uL (1.8-7.7) Lymphocytes # (Auto) 0.6 x10^3/uL (1.0-4.8) Monocytes # (Auto) 0.6 x10^3/uL (0.0-1.1) Eosinophils # (Auto) 0.0 x10^3/uL (0.0-0.7) Basophils # (Auto) 0.0 x10^3/uL (0.0-0.2) Segmented Neutrophils % 68 % (35-66) Band Neutrophils % 21 % (0-9) Lymphocytes % 5 % (24-48) Monocytes % 6 % (0-10) Platelet Estimate Decreased (ADEQUATE) Anisocytosis Present Sodium Level 140 mmol/L (136-145) Potassium Level 3.4 mmol/L (3.5-5.1) Chloride Level 102 mmol/L (98-107) Carbon Dioxide Level 31 mmol/L (21-32) Anion Gap 7 (6-14) Blood Urea Nitrogen 9 mg/dL (7-20) Creatinine 0.6 mg/dL (0.6-1.0) Estimated GFR (Cockcroft-Gault) 101.0 BUN/Creatinine Ratio 15 (6-20) Glucose Level 101 mg/dL (70-99) Calcium Level 7.9 mg/dL (8.5-10.1) Total Bilirubin 0.2 mg/dL (0.2-1.0) Aspartate Amino Transf (AST/SGOT) 66 U/L (15-37) Alanine Aminotransferase (ALT/SGPT) 23 U/L (14-59) Alkaline Phosphatase 72 U/L (46-116) Total Protein 5.9 g/dL (6.4-8.2) Albumin 1.9 g/dL (3.4-5.0) Albumin/Globulin Ratio 0.5 (1.0-1.7) Procalcitonin 5.33 ng/mL (0.00-0.10) Test 02/03/19 07:33 02/03/19 10:32 Glucose (Fingerstick) 87 mg/dL (70-99) 134 mg/dL (70-99) Review of Systems Review of Systems No increase in SOA, both legs swollen, otherwise rest of ROS 14 point negative Assessment and Plan Assessmemt and Plan Problems Medical Problems: (1) Severe sepsis Status: Acute Comment Review of Relevant I have reviewed the following items katie (where applicable) has been applied. Labs Laboratory Tests Test 02/02/19 09:50 02/02/19 13:00 02/02/19 13:50 02/02/19 16:40 White Blood Count 29.1 x10^3/uL (4.0-11.0) Red Blood Count 5.26 x10^6/uL (3.50-5.40) Hemoglobin 13.0 g/dL (12.0-15.5) Hematocrit 41.1 % (36.0-47.0) Mean Corpuscular Volume 78 fL (79-100) Mean Corpuscular Hemoglobin 25 pg (25-35) Mean Corpuscular Hemoglobin Concent 32 g/dL (31-37) Red Cell Distribution Width 15.8 % (11.5-14.5) Platelet Count 206 x10^3/uL (140-400) Neutrophils (%) (Auto) 95 % (31-73) Lymphocytes (%) (Auto) 1 % (24-48) Monocytes (%) (Auto) 4 % (0-9) Eosinophils (%) (Auto) 0 % (0-3) Basophils (%) (Auto) 0 % (0-3) Neutrophils # (Auto) 27.6 x10^3uL (1.8-7.7) Lymphocytes # (Auto) 0.3 x10^3/uL (1.0-4.8) Monocytes # (Auto) 1.0 x10^3/uL (0.0-1.1) Eosinophils # (Auto) 0.0 x10^3/uL (0.0-0.7) Basophils # (Auto) 0.1 x10^3/uL (0.0-0.2) Segmented Neutrophils % 68 % (35-66) Band Neutrophils % 27 % (0-9) Lymphocytes % 2 % (24-48) Monocytes % 3 % (0-10) Toxic Granulation Present Platelet Estimate Adequate (ADEQUATE) Large Platelets Present Hypochromasia Slight Anisocytosis Present Sodium Level 131 mmol/L (136-145) Potassium Level 4.1 mmol/L (3.5-5.1) Chloride Level 92 mmol/L (98-107) Carbon Dioxide Level 30 mmol/L (21-32) Anion Gap 9 (6-14) Blood Urea Nitrogen 21 mg/dL (7-20) Creatinine 1.0 mg/dL (0.6-1.0) Estimated GFR (Cockcroft-Gault) 56.0 BUN/Creatinine Ratio 21 (6-20) Glucose Level 141 mg/dL (70-99) Lactic Acid Level 3.4 mmol/L (0.4-2.0) 3.1 mmol/L (0.4-2.0) Calcium Level 9.2 mg/dL (8.5-10.1) Total Bilirubin 0.4 mg/dL (0.2-1.0) Aspartate Amino Transf (AST/SGOT) 46 U/L (15-37) Alanine Aminotransferase (ALT/SGPT) 17 U/L (14-59) Alkaline Phosphatase 95 U/L (46-116) Troponin I Quantitative 0.101 ng/mL (0.000-0.055) 0.090 ng/mL (0.000-0.055) 0.042 ng/mL (0.000-0.055) Total Protein 7.5 g/dL (6.4-8.2) Albumin 2.8 g/dL (3.4-5.0) Albumin/Globulin Ratio 0.6 (1.0-1.7) Procalcitonin 9.11 ng/mL (0.00-0.10) Influenza Type A Antigen Negative (NEGATIVE) Influenza Type B Antigen Negative (NEGATIVE) Urine Collection Type U cath Urine Color Yellow Urine Clarity Clear Urine pH 7.5 Urine Specific [place] 1.015 Urine Protein Negative mg/dL (NEG-TRACE) Urine Glucose (UA) Negative mg/dL (NEG) Urine Ketones (Stick) Negative mg/dL (NEG) Urine Blood Small (NEG) Urine Nitrite Negative (NEG) Urine Bilirubin Negative (NEG) Urine Urobilinogen Dipstick 1.0 mg/dL (0.2 mg/dL) Urine Leukocyte Esterase Large (NEG) Urine RBC 3-5 /HPF (0-2) Urine WBC Tntc /HPF (0-4) Urine Squamous Epithelial Cells Few /LPF Urine Renal Epithelial Cells Few /LPF Urine Bacteria Many /HPF (0-FEW) Urine Mucus Marked /LPF Test 02/02/19 16:53 02/02/19 17:20 02/02/19 20:55 02/02/19 21:00 Glucose (Fingerstick) 63 mg/dL (70-99) 95 mg/dL (70-99) O2 Saturation % (92-99) Arterial Blood pH 7.41 (7.35-7.45) Arterial Blood pCO2 at Patient Temp 48 mmHg (35-46) Arterial Blood pO2 at Patient Temp 53 mmHg (65-108) Arterial Blood HCO3 29 mmol/L (21-28) Arterial Blood Base Excess 4 mmol/L (-3-3) FiO2 40 Lactic Acid Level 0.7 mmol/L (0.4-2.0) Test 02/03/19 07:25 02/03/19 07:33 02/03/19 10:32 White Blood Count 10.2 x10^3/uL (4.0-11.0) Red Blood Count 4.31 x10^6/uL (3.50-5.40) Hemoglobin 11.1 g/dL (12.0-15.5) Hematocrit 34.1 % (36.0-47.0) Mean Corpuscular Volume 79 fL (79-100) Mean Corpuscular Hemoglobin 26 pg (25-35) Mean Corpuscular Hemoglobin Concent 33 g/dL (31-37) Red Cell Distribution Width 16.2 % (11.5-14.5) Platelet Count 133 x10^3/uL (140-400) Neutrophils (%) (Auto) 88 % (31-73) Lymphocytes (%) (Auto) 6 % (24-48) Monocytes (%) (Auto) 6 % (0-9) Eosinophils (%) (Auto) 0 % (0-3) Basophils (%) (Auto) 0 % (0-3) Neutrophils # (Auto) 8.9 x10^3uL (1.8-7.7) Lymphocytes # (Auto) 0.6 x10^3/uL (1.0-4.8) Monocytes # (Auto) 0.6 x10^3/uL (0.0-1.1) Eosinophils # (Auto) 0.0 x10^3/uL (0.0-0.7) Basophils # (Auto) 0.0 x10^3/uL (0.0-0.2) Segmented Neutrophils % 68 % (35-66) Band Neutrophils % 21 % (0-9) Lymphocytes % 5 % (24-48) Monocytes % 6 % (0-10) Platelet Estimate Decreased (ADEQUATE) Anisocytosis Present Sodium Level 140 mmol/L (136-145) Potassium Level 3.4 mmol/L (3.5-5.1) Chloride Level 102 mmol/L (98-107) Carbon Dioxide Level 31 mmol/L (21-32) Anion Gap 7 (6-14) Blood Urea Nitrogen 9 mg/dL (7-20) Creatinine 0.6 mg/dL (0.6-1.0) Estimated GFR (Cockcroft-Gault) 101.0 BUN/Creatinine Ratio 15 (6-20) Glucose Level 101 mg/dL (70-99) Calcium Level 7.9 mg/dL (8.5-10.1) Total Bilirubin 0.2 mg/dL (0.2-1.0) Aspartate Amino Transf (AST/SGOT) 66 U/L (15-37) Alanine Aminotransferase (ALT/SGPT) 23 U/L (14-59) Alkaline Phosphatase 72 U/L (46-116) Total Protein 5.9 g/dL (6.4-8.2) Albumin 1.9 g/dL (3.4-5.0) Albumin/Globulin Ratio 0.5 (1.0-1.7) Procalcitonin 5.33 ng/mL (0.00-0.10) Glucose (Fingerstick) 87 mg/dL (70-99) 134 mg/dL (70-99) Laboratory Tests Test 02/02/19 13:00 02/02/19 13:50 02/02/19 16:40 02/02/19 16:53 Lactic Acid Level 3.1 mmol/L (0.4-2.0) Troponin I Quantitative 0.090 ng/mL (0.000-0.055) 0.042 ng/mL (0.000-0.055) Urine Collection Type U cath Urine Color Yellow Urine Clarity Clear Urine pH 7.5 Urine Specific [place] 1.015 Urine Protein Negative mg/dL (NEG-TRACE) Urine Glucose (UA) Negative mg/dL (NEG) Urine Ketones (Stick) Negative mg/dL (NEG) Urine Blood Small (NEG) Urine Nitrite Negative (NEG) Urine Bilirubin Negative (NEG) Urine Urobilinogen Dipstick 1.0 mg/dL (0.2 mg/dL) Urine Leukocyte Esterase Large (NEG) Urine RBC 3-5 /HPF (0-2) Urine WBC Tntc /HPF (0-4) Urine Squamous Epithelial Cells Few /LPF Urine Renal Epithelial Cells Few /LPF Urine Bacteria Many /HPF (0-FEW) Urine Mucus Marked /LPF Glucose (Fingerstick) 63 mg/dL (70-99) Test 02/02/19 17:20 02/02/19 20:55 02/02/19 21:00 02/03/19 07:25 O2 Saturation % (92-99) Arterial Blood pH 7.41 (7.35-7.45) Arterial Blood pCO2 at Patient Temp 48 mmHg (35-46) Arterial Blood pO2 at Patient Temp 53 mmHg (65-108) Arterial Blood HCO3 29 mmol/L (21-28) Arterial Blood Base Excess 4 mmol/L (-3-3) FiO2 40 Lactic Acid Level 0.7 mmol/L (0.4-2.0) Glucose (Fingerstick) 95 mg/dL (70-99) White Blood Count 10.2 x10^3/uL (4.0-11.0) Red Blood Count 4.31 x10^6/uL (3.50-5.40) Hemoglobin 11.1 g/dL (12.0-15.5) Hematocrit 34.1 % (36.0-47.0) Mean Corpuscular Volume 79 fL (79-100) Mean Corpuscular Hemoglobin 26 pg (25-35) Mean Corpuscular Hemoglobin Concent 33 g/dL (31-37) Red Cell Distribution Width 16.2 % (11.5-14.5) Platelet Count 133 x10^3/uL (140-400) Neutrophils (%) (Auto) 88 % (31-73) Lymphocytes (%) (Auto) 6 % (24-48) Monocytes (%) (Auto) 6 % (0-9) Eosinophils (%) (Auto) 0 % (0-3) Basophils (%) (Auto) 0 % (0-3) Neutrophils # (Auto) 8.9 x10^3uL (1.8-7.7) Lymphocytes # (Auto) 0.6 x10^3/uL (1.0-4.8) Monocytes # (Auto) 0.6 x10^3/uL (0.0-1.1) Eosinophils # (Auto) 0.0 x10^3/uL (0.0-0.7) Basophils # (Auto) 0.0 x10^3/uL (0.0-0.2) Segmented Neutrophils % 68 % (35-66) Band Neutrophils % 21 % (0-9) Lymphocytes % 5 % (24-48) Monocytes % 6 % (0-10) Platelet Estimate Decreased (ADEQUATE) Anisocytosis Present Sodium Level 140 mmol/L (136-145) Potassium Level 3.4 mmol/L (3.5-5.1) Chloride Level 102 mmol/L (98-107) Carbon Dioxide Level 31 mmol/L (21-32) Anion Gap 7 (6-14) Blood Urea Nitrogen 9 mg/dL (7-20) Creatinine 0.6 mg/dL (0.6-1.0) Estimated GFR (Cockcroft-Gault) 101.0 BUN/Creatinine Ratio 15 (6-20) Glucose Level 101 mg/dL (70-99) Calcium Level 7.9 mg/dL (8.5-10.1) Total Bilirubin 0.2 mg/dL (0.2-1.0) Aspartate Amino Transf (AST/SGOT) 66 U/L (15-37) Alanine Aminotransferase (ALT/SGPT) 23 U/L (14-59) Alkaline Phosphatase 72 U/L (46-116) Total Protein 5.9 g/dL (6.4-8.2) Albumin 1.9 g/dL (3.4-5.0) Albumin/Globulin Ratio 0.5 (1.0-1.7) Procalcitonin 5.33 ng/mL (0.00-0.10) Test 02/03/19 07:33 02/03/19 10:32 Glucose (Fingerstick) 87 mg/dL (70-99) 134 mg/dL (70-99) Microbiology 02/02/19 Blood Culture - Preliminary, Resulted NO GROWTH AFTER 1 DAY Medications Current Medications Ceftriaxone Sodium (Rocephin) 1 gm 1X ONCE IVP ; Start 02/02/19 at 09:45; Stop 02/02/19 at 09:46; Status UNV Sodium Chloride 1,000 ml @ 1,000 mls/hr 1X ONCE IV Last administered on at 11:46; Start 02/02/19 at 10:45; Stop 02/02/19 at 11:44; Status DC Piperacillin Sod/ Tazobactam Sod 3.375 gm/Sodium Chloride 50 ml @ 100 mls/hr 1X ONCE IV ; Start 02/02/19 at 10:45; Stop 02/02/19 at 10:45; Status DC Vancomycin HCl 250 ml @ 250 mls/hr 1X ONCE IV ; Start 02/02/19 at 10:45; Stop 02/02/19 at 11:44; Status UNV Ondansetron HCl (Zofran) 4 mg PRN Q8HRS PRN IV NAUSEA/VOMITING; Start 02/02/19 at 10:45; Stop 02/03/19 at 09:17; Status DC Sodium Chloride 1,000 ml @ 150 mls/hr Q6H40M IV Last administered on at 08:01; Start 02/02/19 at 11:00; Stop 02/03/19 at 10:59; Status DC Acetaminophen (Tylenol) 650 mg PRN Q4HRS PRN PO FEVER Last administered on 02/03at 06:31; Start 02/02/19 at 10:45; Stop 02/03/19 at 09:34; Status DC Albuterol/ Ipratropium (Duoneb) 3 ml RTQID NEB Last administered on 02/02/19at 19:32; Start 02/02/19 at 12:00; Stop 02/03/19 at 09:32; Status DC Sodium Chloride 500 ml @ 1,000 mls/hr PRN Q30MIN PRN IV SEE COMMENTS Last administered on 02/02/19at 13:07; Start 02/02/19 at 10:45 Vancomycin HCl (Vanco Per Pharmacy) 1 each PRN DAILY PRN MC SEE COMMENTS Last administered on 02/02/19at 13:15; Start 02/02/19 at 10:45 Piperacillin Sod/ Tazobactam Sod 4.5 gm/Sodium Chloride 100 ml @ 200 mls/hr Q6HRS IV ; Start 02/02/19 at 12:00; Status UNV Dobutamine HCl/ Dextrose 250 ml @ 0 mls/hr CONT PRN IV SEE I/O RECORD; Start at 10:45; Status Cancel Vancomycin HCl 2 gm/Sodium Chloride 500 ml @ 250 mls/hr 1X ONCE IV Last administered on 02/02/19at 11:49; Start 02/02/19 at 11:15; Stop 02/02/19 at 13:14 ; Status DC Sodium Chloride 1,000 ml @ 1,650 mls/hr Q37M IV Last administered on at 11:50; Start 02/02/19 at 11:00; Stop 02/02/19 at 12:00; Status DC Cefepime HCl (Maxipime) 2 gm Q8HRS IVP ; Start 02/02/19 at 14:00; Status UNV Piperacillin Sod/ Tazobactam Sod 4.5 gm/Sodium Chloride 100 ml @ 200 mls/hr Q6HRS IV Last administered on 02/03/19at 05:19; Start 02/02/19 at 11:15 Vancomycin HCl 2 gm/Sodium Chloride 500 ml @ 250 mls/hr Q12H IV Last administered on 02/03/19at 01:16; Start 02/03/19 at 00:00 Vancomycin HCl (Vancomycin Trough Level) 1 each 1X ONCE MC ; Start 02/03/19 at 23:30; Stop 02/03/19 at 23:31 Nystatin (Nystop) 1 rosa BID TP Last administered on 02/02/19at 20:04; Start at 21:00 Insulin Human Lispro (HumaLOG) 0-5 UNITS TIDWMEALS SQ ; Start 02/02/19 at 17:30 ; Stop 02/03/19 at 09:17; Status DC Dextrose (Dextrose 50%-Water Syringe) 12.5 gm PRN Q15MIN PRN IV SEE COMMENTS; Start 02/02/19 at 17:00 Ondansetron HCl (Zofran) 4 mg PRN Q6HRS PRN IV NAUSEA/VOMITING; Start 02/03/19 at 09:30 Albuterol/ Ipratropium (Duoneb) 3 ml RTQID NEB Last administered on 02/03/19at 09:52; Start 02/03/19 at 12:00 Calcium Carbonate/ Glycine (Tums) 500 mg PRN AFTMEALHC PRN PO INDIGESTION; Start 02/03/19 at 09:15 Guaifenesin (Robitussin Dm) 10 ml PRN Q6HRS PRN PO COUGH; Start 02/03/19 at 09: 15 Throat Lozenges (Cepacol Sore Throat Lozenge) 1 melvin PRN Q2HRS PRN PO SORE THROAT; Start 02/03/19 at 09:15 Diphenhydramine HCl (Benadryl) 25 mg PRN QHS PRN PO INSOMNIA; Start 02/03/19 at 09:15 Acetaminophen (Tylenol) 500 mg PRN Q6HRS PRN PO HEADACHE / TEMP; Start at 09:30 Acetaminophen/ Codeine Phosphate (Tylenol #3) 1 tab PRN Q6HRS PRN PO PAIN MILD ; Start 02/03/19 at 09:30 Amlodipine Besylate (Norvasc) 5 mg DAILY PO ; Start 02/03/19 at 10:00 Baclofen (Lioresal) 10 mg TID PO ; Start 02/03/19 at 10:00 Budesonide (Pulmicort) 0.5 mg BID NEB ; Start 02/03/19 at 21:00 Vitamin D (Vitamin D3) 5,000 unit WEEKLY PO ; Start 02/03/19 at 10:00 Divalproex Sodium (Depakote Er) 500 mg DAILY PO ; Start 02/03/19 at 10:00 Divalproex Sodium (Depakote Er) 1,000 mg QHS PO ; Start 02/03/19 at 21:00 Docusate Sodium (Colace) 100 mg BID PO ; Start 02/03/19 at 10:00 Furosemide (Lasix) 20 mg DAILY PO ; Start 02/03/19 at 10:00 Levothyroxine Sodium (Synthroid) 175 mcg DAILY07 PO ; Start 02/03/19 at 10:00 Neomycin/ Polymyxin/ Bacitracin (Triple Antibiotic Ointment) 1 pkt HS TP ; Start 02/03/19 at 21:00 Pregabalin (Lyrica) 75 mg TID PO ; Start 02/03/19 at 10:00 Tramadol HCl (Ultram) 75 mg PRN TID PRN PO PAIN MODERATE; Start 02/03/19 at 09: 30 Trazodone HCl (Desyrel) 50 mg QHS PO ; Start 02/03/19 at 21:00 Triamcinolone Acetonide (Kenalog) 1 rosa BID TP ; Start 02/03/19 at 21:00 Acetaminophen (Tylenol) 1,000 mg DAILY PO ; Start 02/03/19 at 10:30 Celecoxib (CeleBREX) 200 mg DAILY PO ; Start 02/03/19 at 10:30 Citalopram Hydrobromide (CeleXA) 40 mg DAILY PO ; Start 02/03/19 at 10:30 Artificial Tears (Artificial Tears) 1 drop PRN Q15MIN PRN OU DRY EYE; Start at 10:00 Hydroxyzine Pamoate (Vistaril) 25 mg BID PO ; Start 02/03/19 at 10:00 Non-Formulary Medication (Lifitegrast (Xiidra)) 1 each BID OP ; Start 02/03/19 at 21:00; Status UNV Cetirizine HCl (ZyrTEC) 10 mg DAILY PO ; Start 02/03/19 at 10:00 Meclizine HCl (Antivert) 25 mg PRN TID PRN PO DIZZINESS; Start 02/03/19 at 10: 00 Multi-Ingredient Ointment (Analgesic [place]) 1 rosa PRN QID PRN TP MUSCLE PAIN; Start 02/03/19 at 10:00 Oxybutynin Chloride (Ditropan) 5 mg [id number] PO ; Start 02/03/19 at 14:00 Pantoprazole Sodium (Protonix) 40 mg DAILYAC PO ; Start 02/03/19 at 10:00 [place] HCl (Salagen) 10 mg TID PO ; Start 02/03/19 at 10:30 Polyethylene Glycol (miraLAX PACKET) 17 gm PRN DAILY PRN PO CONSTIPATION; Start 02/03/19 at 09:00 Potassium Chloride (Klor-Con) 20 meq DAILY08 PO ; Start 02/03/19 at 10:30 Risperidone (RisperDAL) 1 mg QHS PO ; Start 02/03/19 at 21:00 Rivaroxaban (Xarelto) 20 mg DAILY PO ; Start 02/03/19 at 10:00 Non-Formulary Medication ([calcium alginate] ) 1 ea HS TP ; Start 02/03/19 at 21 :00; Status UNV Active Scripts Active Reported Xiidra (Lifitegrast) 1 Each Droperette 1 Each OP BID Vitamin D (Cholecalciferol (Vitamin D3)) 5,000 Unit Capsule 5,000 Unit PO WEEKLY Tylenol Extra Strength (Acetaminophen) 500 Mg Tablet 2 Mg PO DAILY Triple Antibiotic Ointment (Neomy Sulf/Bacitrac Zn/Poly) 1 Each Oint.pack 1 Each TP HS Triamcinolone Acetonide 0.1% Oint (Triamcinolone Acetonide) 15 Gm Oint...g. 1 Rosa TP BID MIX WITH EUCERIN DIRECTED BY PHYSICIAN Trazodone Hcl 50 Mg Tablet 1 Tab PO QHS Tramadol Hcl 50 Mg Tablet 75 Mg PO TID PRN Xarelto (Rivaroxaban) 20 Mg Tablet 20 Mg PO DAILY Risperdal (Risperidone) 1 Mg Tablet 1 Mg PO QHS Proventil Hfa Inhaler (Albuterol Sulfate) 6.7 Gm Hfa.aer.ad 1 Puff IH PRN Q4HRS PRN Protonix (Pantoprazole Sodium) 20 Mg Tablet.dr 40 Mg PO DAILY Potassium Chloride 20 Meq Tablet.er 20 Meq PO DAILY Miralax (Polyethylene Glycol 3350) 17 Gm Powd.pack 1 Packet PO DAILY PRN Pilocarpine Hcl 5 Mg Tablet 10 Mg PO TID Oxybutynin Chloride Er (Oxybutynin Chloride) 15 Mg Tab.er.24 1 Tab PO DAILY Meclizine Hcl 25 Mg Tablet 1 Tab PO TID Lyrica (Pregabalin) 75 Mg Capsule 1 Cap PO TID Loratadine 10 Mg Tablet 1 Tab PO DAILY Levothyroxine Sodium 175 Mcg Tablet 1 Tab PO DAILY Lasix (Furosemide) 20 Mg Tablet 1 Tab PO DAILY Hydroxyzine Hcl 25 Mg Tablet 1 Tab PO BID Divalproex Sodium Er (Divalproex Sodium) 500 Mg Tab.er.24h 2 Tab PO QHS Divalproex Sodium Er (Divalproex Sodium) 500 Mg Tab.er.24h 1 Tab PO DAILY Colace (Docusate Sodium) 100 Mg Capsule 1 Cap PO BID Celexa (Citalopram Hydrobromide) 40 Mg Tablet 1 Tab PO DAILY Celebrex (Celecoxib) 200 Mg Capsule 1 Cap PO DAILY [calcium alginate] 1 Ea TP HS Budesonide 0.5 Mg/2 Ml Ampul.neb 1 Vial NEB BID Biofreeze (Menthol) 118 Ml Gel..ml. 118 Ml TP TID Baclofen 10 Mg Tablet 1 Tab PO TID Artificial Tears Eye Drops (Dextran 70/Hypromellose) 15 Ml Drops 1 Drop EACHEYE PRN PRN Amlodipine Besylate 5 Mg Tablet 5 Mg PO DAILY Albuterol Sulfate Neb Soln (Albuterol Sulfate) 2.5 Mg/3 Ml Vial.neb 1 Vial NEB PRN Q4HRS Vitals/I & O Vital Sign - Last 24 Hours 02/02/19 02/02/19 02/02/19 02/02/19 14:00 14:45 16:00 17:25 Temp 98.9 99.7 98.9 99.7 Pulse 76 79 Resp 24 22 B/P (MAP) 154/79 (104) Pulse Ox 94 95 98 O2 Delivery Nasal Cannula Nasal Cannula Nasal Cannula O2 Flow Rate 5.0 5.0 5.0 02/02/19 02/02/19 02/02/19 02/02/19 19:34 19:48 20:00 22:35 Temp 100.6 100.6 Pulse 84 Resp 20 B/P (MAP) 132/69 (90) Pulse Ox 92 93 94 O2 Delivery Venturi Mask Nasal Cannula Venturi Mask BiPAP/CPAP O2 Flow Rate 15.0 4.0 02/02/19 02/03/19 02/03/19 02/03/19 23:43 02:13 03:36 04:50 Temp 100.9 100.4 100.9 100.4 Pulse 83 79 Resp 24 20 B/P (MAP) 142/64 (90) 146/62 (90) Pulse Ox 97 98 O2 Delivery BiPAP/CPAP BiPAP/CPAP BiPAP/CPAP BiPAP/CPAP 02/03/19 02/03/19 02/03/19 07:00 09:53 11:00 Temp 97.4 100.0 97.4 100.0 Pulse 68 75 Resp 20 22 B/P (MAP) 143/67 (92) 140/56 (84) Pulse Ox 98 92 92 O2 Delivery BiPAP/CPAP Room Air Nasal Cannula O2 Flow Rate 4.0 Intake and Output 02/02/19 02/02/19 02/03/19 15:00 23:00 07:00 Intake Total 2700 ml 804 ml Output Total 1500 ml Balance 2700 ml 804 ml -1500 ml VADIM PAUL MD Feb 03, 2019 11:36
[2019-02-03] MEDS: LEVOTHYROXINE 175 MCG TABLET PO SCH (11:37)
[2019-02-03] MEDS: BACLOFEN 10 MG TABLET. PO SCH ×3 (11:37→20:38)
[2019-02-03] MEDS: RIVAROXABAN 10 MG TABLET. PO SCH (11:37)
[2019-02-03] MEDS: POTASSIUM CHLORIDE 20 MEQ TABLET.ER. PO SCH (11:37)
[2019-02-03] MEDS: amLODIPine BESYLATE 5 MG TABLET PO SCH (11:38)
[2019-02-03] MEDS: hydrOXYzine PAMOATE 25 MG CAPSULE PO SCH ×2 (11:40→20:38)
[2019-02-03] MEDS: DIVALPROEX EXTENDED RELEASE 500 MG TAB.ER.24H. PO SCH ×2 (11:41→20:38)
[2019-02-03] MEDS: DOCUSATE SODIUM 100 MG CAPSULE. PO SCH ×2 (11:42→20:38)
[2019-02-03] MEDS: ACETAMINOPHEN 500 MG TABLET PO SCH (11:42)
[2019-02-03] MEDS: CITALOPRAM 20 MG TABLET. PO SCH (11:43)
[2019-02-03] MEDS: PANTOPRAZOLE 40 MG TABLET.DR. PO SCH (11:43)
[2019-02-03] MEDS: CETIRIZINE HCL 10 MG TABLET. PO SCH (11:44)
[2019-02-03] MEDS ORDERED: FUROSEMIDE 40 MG/4 ML VIAL. IVP ONE (11:45)
[2019-02-03] MEDS ORDERED: DIPHENHYDRAMINE/ZINC ACETATE 2%/0.1% TOPICAL CREAM 28GM TUBE. TP PRN (11:45)
[2019-02-03] MEDS: NYSTATIN TOPICAL POWDER 15GM BOTTLE. TP SCH ×2 (11:45→20:36)
[2019-02-03] MEDS: traMADol 50 MG TABLET PO PRN ×2 (12:05→19:21)
[2019-02-03] MEDS: ASCORBIC ACID 500 MG TABLET PO SCH (13:04)
[2019-02-03] MEDS: POLYVINYL ALCOHOL 1.4% OPHTH SOLUTION 15ML BOTTLE. OU PRN (13:09)
--- NOTE | 2019-02-03 14:29 | RAD ---
EXAM: Left lower extremity venous Doppler sonogram. HISTORY: Edema and pain. TECHNIQUE: Han scale and color Doppler sonographic evaluation of the left lower extremity veins with spectral waveform analysis was performed. FINDINGS: There is normal color flow, normal compressibility and there are normal spectral waveforms in the common femoral, superficial femoral, popliteal, posterior tibial and greater saphenous veins. IMPRESSION: No Doppler evidence of lower extremity deep venous thrombosis. Electronically signed by: Yahaira Shell MD (02/03/2019 2:27 PM) [place] [id number]
[2019-02-03] MEDS: OXYBUTYNIN CHLORIDE 5 MG TABLET PO SCH ×2 (14:45→20:38)
[2019-02-03 15:00] VITALS: BP 156/83
--- NOTE | 2019-02-03 15:06 | RAD ---
Examination: CT left lower extremity without contrast HISTORY: History of cellulitis, abscess COMPARISON: None available TECHNIQUE: Axial CT images of the left lower extremity were performed without contrast. Coronal and sagittal reformats are performed. Exposure: One or more of the following individualized dose reduction techniques were utilized for this examination: 1. Automated exposure control 2. Adjustment of the mA and/or kV according to patient size 3. Use of iterative reconstruction technique FINDINGS: The left femoral head is within the acetabulum. The alignment of the femur, tibia, fibula grossly appears unremarkable severe degenerative changes identified in the knee joint. No acute fracture identified. There is mild fat stranding identified in the soft tissue in the left lateral hip region within the subcutaneous region and in the left medial buttock region and along the medial thigh and medial and anterior lower leg and dorsal foot likely cellulitis or edema without evidence of focal fluid collection . IMPRESSION: 1. Mild fat stranding identified in the soft tissue in the left lateral hip region within the subcutaneous region and in the left medial buttock region and along the medial thigh and medial and anterior lower leg and dorsal foot the subcutaneous region likely cellulitis or edema without evidence of focal fluid collection. Electronically signed by: Elliott Robert MD (02/03/2019 3:04 PM) [id number]
[2019-02-03] MEDS: FUROSEMIDE 40 MG/4 ML VIAL. IVP SCH (17:22)
[2019-02-03] MEDS: ANTI-COAG MONITOR BY PHARMACY. MC PRN (17:52)
--- NOTE | 2019-02-03 17:52 | NUR ---
Wound Care; Consult to eval and treat for multiple wounds (see detailed assessment). Open area to L anterior lower leg cleansed and covered with xeroform, ABD and kerlix. Multiple circular areas to abdomen and thighs with intact dry scabs. One open lesion to midline abdomen below ubilicus, cleansed and dressed with xeroform, telfa dressing. Pt on P500 mattress, encouraged to turn every 2 hours to prevent pressure ulcers. No other open areas noted on head to toe assessment. Pt incontinent of bladder, brief changed, positioned on back with HOB raised for dinner. Plan to follow up 02/10/19.
[2019-02-03] MEDS: VANCOMYCIN PER PHARMACY MC PRN (17:59)
[2019-02-03 19:59] VITALS: BP 153/77
[2019-02-03] MEDS: TRIAMCINOLONE ACETONIDE 0.1% TOPICAL OINTMENT 15GM TUBE. TP SCH ×2 (20:36→21:00)
[2019-02-03] MEDS: traZODone 50 MG TABLET. PO SCH (20:38)
[2019-02-03] MEDS: LINEZOLID 600 MG TABLET PO SCH (20:38)
[2019-02-03] MEDS: LACTOBACILLUS RHAMNOSUS GG 1 CAPSULE. PO SCH (20:38)
[2019-02-03] MEDS: risperiDONE 1 MG TABLET. PO SCH (20:38)
[2019-02-03] MEDS: NEOMY/BACITR/POLYMYXIN OINT PACKET. TP SCH (20:39)
[2019-02-03] MEDS ORDERED: NON FORMULARY ITEM (Lifitegrast (Xiidra) 1 EACH) OP SCH (21:00)
[2019-02-03] MEDS ORDERED: CALCIUM ALGINATE TP SCH (21:00)
[2019-02-03] MEDS: BUDESONIDE 0.5 MG/2 ML NEBU. NEB SCH (21:35)
[2019-02-03 23:35] VITALS: BP 129/63
[2019-02-03 23:38] LABS: VANC TR 11.8 mcg/mL (10.0-20.0)
[2019-02-04] MEDS: VANCOMYCIN PER PHARMACY MC PRN (00:32)
--- NOTE | 2019-02-04 00:34 | NUR ---
Pharmacy Vancomycin Dosing Note S: Consulted to monitor and dose vancomycin started 02/02/19. O: ROGE RAM is a 63 year old F with Sepsis Pneumonia, . Other Antibiotics: ZOSYN LABS: Last BUN: 9 Last Creatinine: 0.6 Creatinine Clearance: >100 mL/min Last WBC: 10.2 Last Procalcitonin: 5.33 Tmax (past 24 hours): 99.1 Microbiology: I/O: 3504/1500 Drug Levels: Last Trough level: 11.8 on 02/03/19 at 2330 Last dose given 02/03/19 at 1305 Vancomycin Dosing: Dosing Weight: Actual Target Trough: 15-20 A: Based on: Trough, Actual Wt and Improved CrCl P: 1. 02/04/19 0000 Vancomycin 2000 mg IV q8h 2. Follow up Trough level on 02/04/19 at 2330 3. Pharmacy will continue to monitor, follow and adjust therapy as needed. SREE NEWMAN RPH, 02/04/19 0034 Signed: 02/04/19 at 0035 by SREE NEWMAN RPH PHA
--- NOTE | 2019-02-04 00:34 | CONS ---
DATE OF CONSULTATION: 02/03/2019 REFERRING PHYSICIAN: Dr. Patterson. REASON FOR CONSULTATION: Sepsis. HISTORY OF PRESENT ILLNESS: A 63-year-old assisted resident who is wheelchair bound, was brought in by assisted staff as she was lethargic with altered mental status. The patient had cough, congestion, fever, was found to have leukocytosis. She also has blisters over the left lower extremity, which are chronic more for the last one month with some redness and swelling, which she says goes up and down in the last couple of days. She was found to have leukocytosis, lactic acidosis. She was admitted to the medical floor with working diagnosis of sepsis and was started on IV vancomycin and Zosyn. Chest x-ray showed bilateral infiltrate. CT chest was done, which showed patchy linear airspace opacities identified in the lung, likely atelectasis or infiltrate, enlarged appearing mediastinal and bilateral hilar lymph nodes, nonspecific. Procalcitonin was high at 9.11. Influenza screen was negative. UA showed large leukocyte esterase, wbc's too numerous to count. The patient, this morning, says she feels a little better, still has some cough and congestion, did have trouble with dysuria at the assisted facility. Left lower extremity swelling, redness remains the same. PAST MEDICAL HISTORY: Obesity, hypertension, assisted resident. SOCIAL HISTORY: Does not drink, smoke or take drugs. Lives at the facility. CURRENT MEDICATIONS: IV vancomycin and Zosyn. Other medications reviewed in medication list. REVIEW OF SYSTEMS: As above in HPI. PHYSICAL EXAMINATION: VITAL SIGNS: Temperature 100, pulse 75, respiratory rate 19, blood pressure 140/56, oxygen saturation 92% on 4 liters mask. T-max 100.9. GENERAL: Alert, oriented female, eating lunch, in no acute distress, cooperative. HEENT: Normocephalic, atraumatic, anicteric. NECK: Supple. LUNGS: Clear bilaterally. No wheezing. HEART: S1, S2. No gallops or murmurs. ABDOMEN: Soft, nontender, nondistended. EXTREMITIES: Left lower extremity swelling, blister with no fluid collection, no purulence. Erythema going up to the left thigh with induration. NEUROLOGIC: Alert and oriented, grossly nonfocal. LABORATORY DATA: WBC was 29,000, this morning is 10.2; hemoglobin 11; hematocrit 34.1; platelets 133. Sodium 131, potassium 4.1, chloride 92, bicarbonate 30, BUN 21, creatinine 1.0, lactate 3.4. Procalcitonin 9.11. UA shows large leukocyte esterase, wbc's too numerous to count. Influenza screen negative. IMAGING: Chest CT as above. IMPRESSION: 1. Sepsis, source likely respiratory and left lower extremity cellulitis. 2. Fever. 3. Leukocytosis. 4. Lactic acidosis. 5. Urinary tract infection with pyuria. 6. Bilateral pulmonary infiltrate. 7. Mixed hypercapnic respiratory failure. 8. Bandemia. 9. [facility] resident. RECOMMENDATIONS: 1. Continue empiric IV vancomycin and Zosyn. 2. We will add Zyvox for toxin binding. 3. Elevate left lower extremity. 4. Follow up culture and susceptibility results. 5. Follow up labs in a.m. 6. We will modify treatment depending on culture data. 7. Obtain CT LLE and Ultrasound to r/o DVT D/W Nursing Thank you for consulting Infectious Disease to participate in this patient's care. If you have any questions, do not hesitate to contact me. MITZI HAWLEY MD DR: CRYSTAL/ted JOB#: [id number] / [id number] SARITA
[2019-02-04 03:52] VITALS: BP 141/66
[2019-02-04] MEDS: LEVOTHYROXINE 175 MCG TABLET PO SCH (05:28)
[2019-02-04] MEDS: PIPERACILLIN/TAZOBACTAM 4.5 GM in IV NORMAL SALINE 100ML 100 ML IV SCH ×4 (05:28→23:22)
[2019-02-04] MEDS: PANTOPRAZOLE 40 MG TABLET.DR. PO SCH (05:28)
[2019-02-04 05:57] LABS: CALCIUM 8.1 mg/dL (8.5-10.1); CREATININE 0.5 mg/dL (0.6-1.0); GFR 124.6; POTASSIUM 3.3 mmol/L (3.5-5.1)
[2019-02-04 07:15] VITALS: BP 122/66
[2019-02-04] MEDS: IPRATRPIUM/ALBUTEROL 0.5/2.5MG 3 ML NEBU. NEB SCH ×4 (08:00→20:37)
[2019-02-04] MEDS: VANCOMYCIN 2 GM in IV NORMAL SALINE 500ML BAG 500 ML IV SCH ×4 (08:14→16:40)
[2019-02-04] MEDS ORDERED: POTASSIUM CHLORIDE 20 MEQ TABLET.ER. PO ONE (09:00)
[2019-02-04] MEDS: TRIAMCINOLONE ACETONIDE 0.1% TOPICAL OINTMENT 15GM TUBE. TP SCH ×2 (09:00→18:20)
[2019-02-04] MEDS: BUDESONIDE 0.5 MG/2 ML NEBU. NEB SCH ×2 (09:00→20:37)
[2019-02-04] MEDS: CITALOPRAM 20 MG TABLET. PO SCH (09:57)
[2019-02-04] MEDS: ASCORBIC ACID 500 MG TABLET PO SCH (09:58)
[2019-02-04] MEDS: CETIRIZINE HCL 10 MG TABLET. PO SCH (09:58)
[2019-02-04] MEDS: OXYBUTYNIN CHLORIDE 5 MG TABLET PO SCH ×3 (09:58→20:48)
[2019-02-04] MEDS: DIVALPROEX EXTENDED RELEASE 500 MG TAB.ER.24H. PO SCH ×2 (09:58→20:49)
[2019-02-04] MEDS: PREGABALIN 75 MG CAPSULE PO SCH ×3 (09:58→20:48)
[2019-02-04] MEDS: LACTOBACILLUS RHAMNOSUS GG 1 CAPSULE. PO SCH ×2 (09:59→20:48)
[2019-02-04] MEDS: BACLOFEN 10 MG TABLET. PO SCH ×3 (09:59→20:48)
[2019-02-04] MEDS: hydrOXYzine PAMOATE 25 MG CAPSULE PO SCH ×2 (09:59→20:48)
[2019-02-04] MEDS: LINEZOLID 600 MG TABLET PO SCH ×2 (09:59→20:48)
[2019-02-04] MEDS: RIVAROXABAN 10 MG TABLET. PO SCH (10:00)
[2019-02-04] MEDS: POTASSIUM CHLORIDE 20 MEQ TABLET.ER. PO SCH (10:00)
[2019-02-04] MEDS: amLODIPine BESYLATE 5 MG TABLET PO SCH (10:00)
[2019-02-04] MEDS: FUROSEMIDE 40 MG/4 ML VIAL. IVP SCH ×2 (10:01→14:15)
[2019-02-04] MEDS: traMADol 50 MG TABLET PO PRN (10:03)
[2019-02-04] MEDS: ACETAMINOPHEN 500 MG TABLET PO SCH ×2 (10:03→14:14)
[2019-02-04] MEDS: PILOCARPINE 5 MG TABLET. PO SCH ×3 (10:11→20:49)
[2019-02-04] MEDS: DOCUSATE SODIUM 100 MG CAPSULE. PO SCH ×2 (10:11→20:48)
[2019-02-04] MEDS: NYSTATIN TOPICAL POWDER 15GM BOTTLE. TP SCH ×2 (10:12→20:47)
--- NOTE | 2019-02-04 11:04 | PDOC ---
PROGRESS NOTES Chief Complaint Chief Complaint BIlateral infiltrates-pneumonia SNU resident Bedbound because of acute on chronic lymphedema - neg DVT Sepsis present on admission, elevated lactate 3.7, WBC 30 UTI in an SNU resident-, complicated UTI Mixed hypercapnic hypoxic respiratory failure - BIPAP AJ on CPAP at SNU Flu negative Fevers Obesity, BMI 50 DNR History of Present Illness History of Present Illness Sister at bedside who is the DPOA DNR SNU resident Bedbound because of acute and chronic lymphedema-claims she is on Lasix in SNU once a day Flu negative Pulmonary has ordered a chest CT-atelectasis vs infiltrates bases WBC down to 10 from 30 on admission We are waiting for urine cultures She has an external wick ABG reviewed, pH 7.4, CO2 48, oh to 53, BiPAP at bedside - did get bipap last night HAs cpap in SNU CAnt ambulate,. legs still swollen BC prelim neg Plan COnt lasix BID Elytes while on lasix Await urine culture Replace potassium mildly low K3.4 Continue IV antibiotics Patient on Xarelto continue this Follow pulmo and ID recs I did recommend to ambulate with PT DNR dw RN at bedside Vitals Vitals Vital Signs Date Time Temp Pulse Resp B/P (MAP) Pulse Ox O2 Delivery O2 Flow Rate FiO2 02/04/19 10:42 94 Nasal Cannula 4.0 02/04/19 10:03 18 02/04/19 10:00 61 122/66 02/04/19 07:15 99.1 99.1 Physical Exam General: Alert, Oriented X3, Cooperative, No acute distress Heart: Regular rate, Normal S1, Normal S2 Lungs: Wheezing Abdomen: Normal bowel sounds, Soft, Other (obese, nontender, normoactive bowel sounds) Extremities: Other (S3 pitting edema, some excoriations of foot, red warm tender juice E left leg wounds-wound care consulted, lateral foot drop) Skin: Other (asper above) Labs LABS Laboratory Tests Test 02/03/19 16:40 02/03/19 20:55 02/03/19 23:15 02/04/19 04:20 Glucose (Fingerstick) 102 mg/dL (70-99) 152 mg/dL (70-99) Vancomycin Level Trough 11.8 mcg/mL (10.0-20.0) Vancomycin Last Dose Date Vancomycin Last Dose Time 1200 Sodium Level 141 mmol/L (136-145) Potassium Level 3.3 mmol/L (3.5-5.1) Chloride Level 100 mmol/L (98-107) Carbon Dioxide Level 38 mmol/L (21-32) Anion Gap 3 (6-14) Blood Urea Nitrogen 6 mg/dL (7-20) Creatinine 0.5 mg/dL (0.6-1.0) Estimated GFR (Cockcroft-Gault) 124.6 Glucose Level 122 mg/dL (70-99) Calcium Level 8.1 mg/dL (8.5-10.1) Procalcitonin 0.19 ng/mL (0.00-0.10) Test 02/04/19 06:30 02/04/19 07:11 Erythrocyte Sedimentation Rate 47 (0-25) Glucose (Fingerstick) 109 mg/dL (70-99) Review of Systems Review of Systems Leg swollen, some occasional SOA, the rest of ROS 14 point negative Assessment and Plan Assessmemt and Plan Problems Medical Problems: (1) Severe sepsis Status: Acute Comment Review of Relevant I have reviewed the following items katie (where applicable) has been applied. Labs Laboratory Tests Test 02/02/19 13:00 02/02/19 13:50 02/02/19 16:40 02/02/19 16:53 Lactic Acid Level 3.1 mmol/L (0.4-2.0) Troponin I Quantitative 0.090 ng/mL (0.000-0.055) 0.042 ng/mL (0.000-0.055) Urine Collection Type U cath Urine Color Yellow Urine Clarity Clear Urine pH 7.5 Urine Specific Thornton 1.015 Urine Protein Negative mg/dL (NEG-TRACE) Urine Glucose (UA) Negative mg/dL (NEG) Urine Ketones (Stick) Negative mg/dL (NEG) Urine Blood Small (NEG) Urine Nitrite Negative (NEG) Urine Bilirubin Negative (NEG) Urine Urobilinogen Dipstick 1.0 mg/dL (0.2 mg/dL) Urine Leukocyte Esterase Large (NEG) Urine RBC 3-5 /HPF (0-2) Urine WBC Tntc /HPF (0-4) Urine Squamous Epithelial Cells Few /LPF Urine Renal Epithelial Cells Few /LPF Urine Bacteria Many /HPF (0-FEW) Urine Mucus Marked /LPF Glucose (Fingerstick) 63 mg/dL (70-99) Test 02/02/19 17:20 02/02/19 20:55 02/02/19 21:00 02/03/19 07:25 O2 Saturation % (92-99) Arterial Blood pH 7.41 (7.35-7.45) Arterial Blood pCO2 at Patient Temp 48 mmHg (35-46) Arterial Blood pO2 at Patient Temp 53 mmHg (65-108) Arterial Blood HCO3 29 mmol/L (21-28) Arterial Blood Base Excess 4 mmol/L (-3-3) FiO2 40 Lactic Acid Level 0.7 mmol/L (0.4-2.0) Glucose (Fingerstick) 95 mg/dL (70-99) White Blood Count 10.2 x10^3/uL (4.0-11.0) Red Blood Count 4.31 x10^6/uL (3.50-5.40) Hemoglobin 11.1 g/dL (12.0-15.5) Hematocrit 34.1 % (36.0-47.0) Mean Corpuscular Volume 79 fL (79-100) Mean Corpuscular Hemoglobin 26 pg (25-35) Mean Corpuscular Hemoglobin Concent 33 g/dL (31-37) Red Cell Distribution Width 16.2 % (11.5-14.5) Platelet Count 133 x10^3/uL (140-400) Neutrophils (%) (Auto) 88 % (31-73) Lymphocytes (%) (Auto) 6 % (24-48) Monocytes (%) (Auto) 6 % (0-9) Eosinophils (%) (Auto) 0 % (0-3) Basophils (%) (Auto) 0 % (0-3) Neutrophils # (Auto) 8.9 x10^3uL (1.8-7.7) Lymphocytes # (Auto) 0.6 x10^3/uL (1.0-4.8) Monocytes # (Auto) 0.6 x10^3/uL (0.0-1.1) Eosinophils # (Auto) 0.0 x10^3/uL (0.0-0.7) Basophils # (Auto) 0.0 x10^3/uL (0.0-0.2) Segmented Neutrophils % 68 % (35-66) Band Neutrophils % 21 % (0-9) Lymphocytes % 5 % (24-48) Monocytes % 6 % (0-10) Platelet Estimate Decreased (ADEQUATE) Anisocytosis Present Sodium Level 140 mmol/L (136-145) Potassium Level 3.4 mmol/L (3.5-5.1) Chloride Level 102 mmol/L (98-107) Carbon Dioxide Level 31 mmol/L (21-32) Anion Gap 7 (6-14) Blood Urea Nitrogen 9 mg/dL (7-20) Creatinine 0.6 mg/dL (0.6-1.0) Estimated GFR (Cockcroft-Gault) 101.0 BUN/Creatinine Ratio 15 (6-20) Glucose Level 101 mg/dL (70-99) Calcium Level 7.9 mg/dL (8.5-10.1) Total Bilirubin 0.2 mg/dL (0.2-1.0) Aspartate Amino Transf (AST/SGOT) 66 U/L (15-37) Alanine Aminotransferase (ALT/SGPT) 23 U/L (14-59) Alkaline Phosphatase 72 U/L (46-116) Total Protein 5.9 g/dL (6.4-8.2) Albumin 1.9 g/dL (3.4-5.0) Albumin/Globulin Ratio 0.5 (1.0-1.7) Procalcitonin 5.33 ng/mL (0.00-0.10) Test 02/03/19 07:33 02/03/19 10:32 02/03/19 16:40 02/03/19 20:55 Glucose (Fingerstick) 87 mg/dL (70-99) 134 mg/dL (70-99) 102 mg/dL (70-99) 152 mg/dL (70-99) Test 02/03/19 23:15 02/04/19 04:20 02/04/19 06:30 02/04/19 07:11 Vancomycin Level Trough 11.8 mcg/mL (10.0-20.0) Vancomycin Last Dose Date [id number] Vancomycin Last Dose Time 1200 Sodium Level 141 mmol/L (136-145) Potassium Level 3.3 mmol/L (3.5-5.1) Chloride Level 100 mmol/L (98-107) Carbon Dioxide Level 38 mmol/L (21-32) Anion Gap 3 (6-14) Blood Urea Nitrogen 6 mg/dL (7-20) Creatinine 0.5 mg/dL (0.6-1.0) Estimated GFR (Cockcroft-Gault) 124.6 Glucose Level 122 mg/dL (70-99) Calcium Level 8.1 mg/dL (8.5-10.1) Procalcitonin 0.19 ng/mL (0.00-0.10) Erythrocyte Sedimentation Rate 47 (0-25) Glucose (Fingerstick) 109 mg/dL (70-99) Laboratory Tests Test 02/03/19 16:40 02/03/19 20:55 02/03/19 23:15 02/04/19 04:20 Glucose (Fingerstick) 102 mg/dL (70-99) 152 mg/dL (70-99) Vancomycin Level Trough 11.8 mcg/mL (10.0-20.0) Vancomycin Last Dose Date Vancomycin Last Dose Time 1200 Sodium Level 141 mmol/L (136-145) Potassium Level 3.3 mmol/L (3.5-5.1) Chloride Level 100 mmol/L (98-107) Carbon Dioxide Level 38 mmol/L (21-32) Anion Gap 3 (6-14) Blood Urea Nitrogen 6 mg/dL (7-20) Creatinine 0.5 mg/dL (0.6-1.0) Estimated GFR (Cockcroft-Gault) 124.6 Glucose Level 122 mg/dL (70-99) Calcium Level 8.1 mg/dL (8.5-10.1) Procalcitonin 0.19 ng/mL (0.00-0.10) Test 02/04/19 06:30 02/04/19 07:11 Erythrocyte Sedimentation Rate 47 (0-25) Glucose (Fingerstick) 109 mg/dL (70-99) Microbiology 02/02/19 Blood Culture - Preliminary, Resulted NO GROWTH AFTER 2 DAYS Medications Current Medications Ceftriaxone Sodium (Rocephin) 1 gm 1X ONCE IVP ; Start 02/02/19 at 09:45; Stop 02/02/19 at 09:46; Status UNV Sodium Chloride 1,000 ml @ 1,000 mls/hr 1X ONCE IV Last administered on at 11:46; Start 02/02/19 at 10:45; Stop 02/02/19 at 11:44; Status DC Piperacillin Sod/ Tazobactam Sod 3.375 gm/Sodium Chloride 50 ml @ 100 mls/hr 1X ONCE IV ; Start 02/02/19 at 10:45; Stop 02/02/19 at 10:45; Status DC Vancomycin HCl 250 ml @ 250 mls/hr 1X ONCE IV ; Start 02/02/19 at 10:45; Stop 02/02/19 at 11:44; Status UNV Ondansetron HCl (Zofran) 4 mg PRN Q8HRS PRN IV NAUSEA/VOMITING; Start 02/02/19 at 10:45; Stop 02/03/19 at 09:17; Status DC Sodium Chloride 1,000 ml @ 150 mls/hr Q6H40M IV Last administered on at 08:01; Start 02/02/19 at 11:00; Stop 02/03/19 at 10:59; Status DC Acetaminophen (Tylenol) 650 mg PRN Q4HRS PRN PO FEVER Last administered on 02/03at 06:31; Start 02/02/19 at 10:45; Stop 02/03/19 at 09:34; Status DC Albuterol/ Ipratropium (Duoneb) 3 ml RTQID NEB Last administered on 02/02/19at 19:32; Start 02/02/19 at 12:00; Stop 02/03/19 at 09:32; Status DC Sodium Chloride 500 ml @ 1,000 mls/hr PRN Q30MIN PRN IV SEE COMMENTS Last administered on 02/02/19at 13:07; Start 02/02/19 at 10:45 Vancomycin HCl (Vanco Per Pharmacy) 1 each PRN DAILY PRN MC SEE COMMENTS Last administered on 02/04/19at 00:32; Start 02/02/19 at 10:45 Piperacillin Sod/ Tazobactam Sod 4.5 gm/Sodium Chloride 100 ml @ 200 mls/hr Q6HRS IV ; Start 02/02/19 at 12:00; Status UNV Dobutamine HCl/ Dextrose 250 ml @ 0 mls/hr CONT PRN IV SEE I/O RECORD; Start at 10:45; Status Cancel Vancomycin HCl 2 gm/Sodium Chloride 500 ml @ 250 mls/hr 1X ONCE IV Last administered on 02/02/19at 11:49; Start 02/02/19 at 11:15; Stop 02/02/19 at 13:14 ; Status DC Sodium Chloride 1,000 ml @ 1,650 mls/hr Q37M IV Last administered on at 11:50; Start 02/02/19 at 11:00; Stop 02/02/19 at 12:00; Status DC Cefepime HCl (Maxipime) 2 gm Q8HRS IVP ; Start 02/02/19 at 14:00; Status UNV Piperacillin Sod/ Tazobactam Sod 4.5 gm/Sodium Chloride 100 ml @ 200 mls/hr Q6HRS IV Last administered on 02/04/19at 05:28; Start 02/02/19 at 11:15 Vancomycin HCl 2 gm/Sodium Chloride 500 ml @ 250 mls/hr Q12H IV Last administered on 02/03/19at 13:05; Start 02/03/19 at 00:00; Stop 02/03/19 at 23:46 ; Status DC Vancomycin HCl (Vancomycin Trough Level) 1 each 1X ONCE MC Last administered on 02/03/19at 23:30; Start 02/03/19 at 23:30; Stop 02/03/19 at 23:31; Status DC Nystatin (Nystop) 1 rosa BID TP Last administered on 02/04/19at 10:12; Start at 21:00 Insulin Human Lispro (HumaLOG) 0-5 UNITS TIDWMEALS SQ ; Start 02/02/19 at 17:30 ; Stop 02/03/19 at 09:17; Status DC Dextrose (Dextrose 50%-Water Syringe) 12.5 gm PRN Q15MIN PRN IV SEE COMMENTS; Start 02/02/19 at 17:00 Ondansetron HCl (Zofran) 4 mg PRN Q6HRS PRN IV NAUSEA/VOMITING; Start 02/03/19 at 09:30 Albuterol/ Ipratropium (Duoneb) 3 ml RTQID NEB Last administered on 02/04/19at 10:41; Start 02/03/19 at 12:00 Calcium Carbonate/ Glycine (Tums) 500 mg PRN AFTMEALHC PRN PO INDIGESTION; Start 02/03/19 at 09:15 Guaifenesin (Robitussin Dm) 10 ml PRN Q6HRS PRN PO COUGH; Start 02/03/19 at 09: 15 Throat Lozenges (Cepacol Sore Throat Lozenge) 1 melvin PRN Q2HRS PRN PO SORE THROAT; Start 02/03/19 at 09:15 Diphenhydramine HCl (Benadryl) 25 mg PRN QHS PRN PO INSOMNIA; Start 02/03/19 at 09:15 Acetaminophen (Tylenol) 500 mg PRN Q6HRS PRN PO HEADACHE / TEMP Last administered on 02/03/19 17:20; Start 02/03/19 at 09:30 Acetaminophen/ Codeine Phosphate (Tylenol #3) 1 tab PRN Q6HRS PRN PO PAIN MILD ; Start 02/03/19 at 09:30 Amlodipine Besylate (Norvasc) 5 mg DAILY PO Last administered on 02/04/19 10: 00; Start 02/03/19 at 10:00 Baclofen (Lioresal) 10 mg TID PO Last administered on 02/04/19 09:59; Start at 10:00 Budesonide (Pulmicort) 0.5 mg BID NEB Last administered on 02/04/19 09:00; Start 02/03/19 at 21:00 Vitamin D (Vitamin D3) 5,000 unit WEEKLY PO Last administered on 02/03/19 11: 37; Start 02/03/19 at 10:00 Divalproex Sodium (Depakote Er) 500 mg DAILY PO Last administered on 02/04/19 09:58; Start 02/03/19 at 10:00 Divalproex Sodium (Depakote Er) 1,000 mg QHS PO Last administered on 02/03/19 20:38; Start 02/03/19 at 21:00 Docusate Sodium (Colace) 100 mg BID PO Last administered on 02/04/19 10:11; Start 02/03/19 at 10:00 Furosemide (Lasix) 20 mg DAILY PO ; Start 02/03/19 at 10:00; Stop 02/03/19 at 11 :40; Status DC Levothyroxine Sodium (Synthroid) 175 mcg DAILY07 PO Last administered on 3/28/ 19at 05:28; Start 02/03/19 at 10:00 Neomycin/ Polymyxin/ Bacitracin (Triple Antibiotic Ointment) 1 pkt HS TP ; Start 02/03/19 at 21:00 Pregabalin (Lyrica) 75 mg TID PO Last administered on 02/04/19at 09:58; Start at 10:00 Tramadol HCl (Ultram) 75 mg PRN TID PRN PO PAIN MODERATE Last administered on 10:03; Start 02/03/19 at 09:30 Trazodone HCl (Desyrel) 50 mg QHS PO Last administered on 02/03/19at 20:38; Start 02/03/19 at 21:00 Triamcinolone Acetonide (Kenalog) 1 rosa BID TP ; Start 02/03/19 at 21:00 Acetaminophen (Tylenol) 1,000 mg DAILY PO Last administered on 02/04/19 10:03 ; Start 02/03/19 at 10:30 Celecoxib (CeleBREX) 200 mg DAILY PO ; Start 02/03/19 at 10:30; Stop 02/03/19 at 11:40; Status DC Citalopram Hydrobromide (CeleXA) 40 mg DAILY PO Last administered on 02/04/19 09:57; Start 02/03/19 at 10:30 Artificial Tears (Artificial Tears) 1 drop PRN Q15MIN PRN OU DRY EYE Last administered on 02/03/19at 13:09; Start 02/03/19 at 10:00 Hydroxyzine Pamoate (Vistaril) 25 mg BID PO Last administered on 02/04/19at 09: 59; Start 02/03/19 at 10:00 Non-Formulary Medication (Lifitegrast (Xiidra)) 1 each BID OP ; Start 02/03/19 at 21:00; Status UNV Cetirizine HCl (ZyrTEC) 10 mg DAILY PO Last administered on 02/04/19at 09:58; Start 02/03/19 at 10:00 Meclizine HCl (Antivert) 25 mg PRN TID PRN PO DIZZINESS; Start 02/03/19 at 10: 00 Multi-Ingredient Ointment (Analgesic [place]) 1 rosa PRN QID PRN TP MUSCLE PAIN; Start 02/03/19 at 10:00 Oxybutynin Chloride (Ditropan) 5 mg [id number] PO Last administered on 02/04/19 09 :58; Start 02/03/19 at 14:00 Pantoprazole Sodium (Protonix) 40 mg DAILYAC PO Last administered on 02/04/19 05:28; Start 02/03/19 at 10:00 Pilocarpine HCl (Salagen) 10 mg TID PO Last administered on 02/04/19 10:11; Start 02/03/19 at 10:30 Polyethylene Glycol (miraLAX PACKET) 17 gm PRN DAILY PRN PO CONSTIPATION; Start 02/03/19 at 09:00 Potassium Chloride (Klor-Con) 20 meq DAILY08 PO Last administered on 02/04/19 10:00; Start 02/03/19 at 10:30 Risperidone (RisperDAL) 1 mg QHS PO Last administered on 02/03/19 20:38; Start 02/03/19 at 21:00 Rivaroxaban (Xarelto) 20 mg DAILY PO Last administered on 02/04/19 10:00; Start 02/03/19 at 10:00 Non-Formulary Medication ([calcium alginate] ) 1 ea HS TP ; Start 02/03/19 at 21 :00; Status UNV Furosemide (Lasix) 40 mg 1X ONCE IVP Last administered on 02/03/19 12:13; Start 02/03/19 at 11:45; Stop 02/03/19 at 11:46; Status DC Furosemide (Lasix) 40 mg BID92 IVP Last administered on 02/04/19 10:01; Start 02/03/19 at 18:00 Ascorbic Acid (Vitamin C) 500 mg DAILY PO Last administered on 02/04/19 09:58 ; Start 02/03/19 at 12:00 Zinc Acetate/ Diphenhydramine (Benadryl Topical) 1 rosa TID PRN TP itchy legs; Start 02/03/19 at 11:45 Linezolid (Zyvox) 600 mg BID PO Last administered on 02/04/19 09:59; Start at 21:00 Info (Anti-Coagulation Monitoring By Pharmacy) 1 each PRN DAILY PRN MC SEE COMMENTS Last administered on 3/27/19at 17:52; Start 02/03/19 at 13:00 Lactobacillus Rhamnosus (Culturelle) 1 cap BID PO Last administered on at 09:59; Start 02/03/19 at 21:00 Vancomycin HCl 2 gm/Sodium Chloride 500 ml @ 250 mls/hr Q8H IV Last administered on 02/04/19at 08:14; Start 02/04/19 at 00:00 Vancomycin HCl (Vancomycin Trough Level) 1 each 1X ONCE MC ; Start 02/04/19 at 23:30; Stop 02/04/19 at 23:31 Active Scripts Active Reported Xiidra (Lifitegrast) 1 Each Droperette 1 Each OP BID Vitamin D (Cholecalciferol (Vitamin D3)) 5,000 Unit Capsule 5,000 Unit PO WEEKLY Tylenol Extra Strength (Acetaminophen) 500 Mg Tablet 2 Mg PO DAILY Triple Antibiotic Ointment (Neomy Sulf/Bacitrac Zn/Poly) 1 Each Oint.pack 1 Each TP HS Triamcinolone Acetonide 0.1% Oint (Triamcinolone Acetonide) 15 Gm Oint...g. 1 Rosa TP BID MIX WITH EUCERIN DIRECTED BY PHYSICIAN Trazodone Hcl 50 Mg Tablet 1 Tab PO QHS Tramadol Hcl 50 Mg Tablet 75 Mg PO TID PRN Xarelto (Rivaroxaban) 20 Mg Tablet 20 Mg PO DAILY Risperdal (Risperidone) 1 Mg Tablet 1 Mg PO QHS Proventil Hfa Inhaler (Albuterol Sulfate) 6.7 Gm Hfa.aer.ad 1 Puff IH PRN Q4HRS PRN Protonix (Pantoprazole Sodium) 20 Mg Tablet.dr 40 Mg PO DAILY Potassium Chloride 20 Meq Tablet.er 20 Meq PO DAILY Miralax (Polyethylene Glycol 3350) 17 Gm Powd.pack 1 Packet PO DAILY PRN Pilocarpine Hcl 5 Mg Tablet 10 Mg PO TID Oxybutynin Chloride Er (Oxybutynin Chloride) 15 Mg Tab.er.24 1 Tab PO DAILY Meclizine Hcl 25 Mg Tablet 1 Tab PO TID Lyrica (Pregabalin) 75 Mg Capsule 1 Cap PO TID Loratadine 10 Mg Tablet 1 Tab PO DAILY Levothyroxine Sodium 175 Mcg Tablet 1 Tab PO DAILY Lasix (Furosemide) 20 Mg Tablet 1 Tab PO DAILY Hydroxyzine Hcl 25 Mg Tablet 1 Tab PO BID Divalproex Sodium Er (Divalproex Sodium) 500 Mg Tab.er.24h 2 Tab PO QHS Divalproex Sodium Er (Divalproex Sodium) 500 Mg Tab.er.24h 1 Tab PO DAILY Colace (Docusate Sodium) 100 Mg Capsule 1 Cap PO BID Celexa (Citalopram Hydrobromide) 40 Mg Tablet 1 Tab PO DAILY Celebrex (Celecoxib) 200 Mg Capsule 1 Cap PO DAILY [calcium alginate] 1 Ea TP HS Budesonide 0.5 Mg/2 Ml Ampul.neb 1 Vial NEB BID Biofreeze (Menthol) 118 Ml Gel..ml. 118 Ml TP TID Baclofen 10 Mg Tablet 1 Tab PO TID Artificial Tears Eye Drops (Dextran 70/Hypromellose) 15 Ml Drops 1 Drop EACHEYE PRN PRN Amlodipine Besylate 5 Mg Tablet 5 Mg PO DAILY Albuterol Sulfate Neb Soln (Albuterol Sulfate) 2.5 Mg/3 Ml Vial.neb 1 Vial NEB PRN Q4HRS Vitals/I & O Vital Sign - Last 24 Hours 02/03/19 02/03/19 02/03/19 02/03/19 11:38 12:05 15:00 16:05 Temp 98.1 98.1 Pulse 75 77 Resp 19 22 B/P (MAP) 140/56 156/83 (107) Pulse Ox 92 97 95 O2 Delivery Venturi Mask Nasal Cannula Nasal Cannula O2 Flow Rate 4.0 4.0 5.0 02/03/19 02/03/19 02/03/19 02/03/19 19:15 19:21 19:59 20:20 Temp 97.7 97.7 Pulse 70 Resp 20 20 18 B/P (MAP) 153/77 (102) Pulse Ox 95 98 98 O2 Delivery Nasal Cannula Nasal Cannula Nasal Cannula Nasal Cannula O2 Flow Rate 4.0 5.0 5.0 4.0 02/03/19 02/03/19 02/03/19 02/04/19 21:35 23:25 23:35 02:01 Temp 98.1 98.1 Pulse 70 Resp 20 B/P (MAP) 129/63 (85) Pulse Ox 93 93 O2 Delivery Room Air BiPAP/CPAP Nasal Cannula BiPAP/CPAP O2 Flow Rate 4.0 02/04/19 02/04/19 02/04/1902/04/19 03:52 04:10 07:15 08:00 Temp 98.3 99.1 98.3 99.1 Pulse 68 61 Resp 20 20 B/P (MAP) 141/66 (91) 122/66 (84) Pulse Ox 96 96 O2 Delivery Nasal Cannula BiPAP/CPAP Nasal Cannula Nasal Cannula O2 Flow Rate 4.0 4.0 4.0 02/04/19 02/04/19 02/04/19 10:00 10:03 10:42 Pulse 61 Resp 18 B/P (MAP) 122/66 Pulse Ox 96 94 O2 Delivery Nasal Cannula Nasal Cannula O2 Flow Rate 4.0 4.0 Intake and Output 02/03/19 02/03/19 02/04/19 15:00 23:00 07:00 Intake Total 350 ml 1750 ml 1540 ml Balance 350 ml 1750 ml 1540 ml VDAIM PAUL MD Feb 04, 2019 11:04
[2019-02-04 11:07] VITALS: BP 154/76
--- NOTE | 2019-02-04 11:07 | PDOC ---
PULMONARY PROGRESS NOTES Subjective PT MORE AWAKE AND LESS SOA Vitals Vital Signs Date Time Temp Pulse Resp B/P (MAP) Pulse Ox O2 Delivery O2 Flow Rate FiO2 02/04/19 10:42 94 Nasal Cannula 4.0 02/04/19 10:03 18 02/04/19 10:00 61 122/66 02/04/19 07:15 99.1 99.1 ROS: No Nausea, No Chest Pain, No Abdominal Pain, No Increase Cough Lungs: Wheezing Cardiovascular: S1, S2 Abdomen: Soft, Other (OBESE) Neuro Exam: Alert Extremities: Other (EDEMA) Skin: Warm Labs Laboratory Tests Test 02/02/19 13:00 02/02/19 13:50 02/02/19 16:40 02/02/19 16:53 Lactic Acid Level 3.1 mmol/L (0.4-2.0) Troponin I Quantitative 0.090 ng/mL (0.000-0.055) 0.042 ng/mL (0.000-0.055) Urine Collection Type U cath Urine Color Yellow Urine Clarity Clear Urine pH 7.5 Urine Specific [place] 1.015 Urine Protein Negative mg/dL (NEG-TRACE) Urine Glucose (UA) Negative mg/dL (NEG) Urine Ketones (Stick) Negative mg/dL (NEG) Urine Blood Small (NEG) Urine Nitrite Negative (NEG) Urine Bilirubin Negative (NEG) Urine Urobilinogen Dipstick 1.0 mg/dL (0.2 mg/dL) Urine Leukocyte Esterase Large (NEG) Urine RBC 3-5 /HPF (0-2) Urine WBC Tntc /HPF (0-4) Urine Squamous Epithelial Cells Few /LPF Urine Renal Epithelial Cells Few /LPF Urine Bacteria Many /HPF (0-FEW) Urine Mucus Marked /LPF Glucose (Fingerstick) 63 mg/dL (70-99) Test 02/02/19 17:20 02/02/19 20:55 02/02/19 21:00 02/03/19 07:25 O2 Saturation % (92-99) Arterial Blood pH 7.41 (7.35-7.45) Arterial Blood pCO2 at Patient Temp 48 mmHg (35-46) Arterial Blood pO2 at Patient Temp 53 mmHg (65-108) Arterial Blood HCO3 29 mmol/L (21-28) Arterial Blood Base Excess 4 mmol/L (-3-3) FiO2 40 Lactic Acid Level 0.7 mmol/L (0.4-2.0) Glucose (Fingerstick) 95 mg/dL (70-99) White Blood Count 10.2 x10^3/uL (4.0-11.0) Red Blood Count 4.31 x10^6/uL (3.50-5.40) Hemoglobin 11.1 g/dL (12.0-15.5) Hematocrit 34.1 % (36.0-47.0) Mean Corpuscular Volume 79 fL (79-100) Mean Corpuscular Hemoglobin 26 pg (25-35) Mean Corpuscular Hemoglobin Concent 33 g/dL (31-37) Red Cell Distribution Width 16.2 % (11.5-14.5) Platelet Count 133 x10^3/uL (140-400) Neutrophils (%) (Auto) 88 % (31-73) Lymphocytes (%) (Auto) 6 % (24-48) Monocytes (%) (Auto) 6 % (0-9) Eosinophils (%) (Auto) 0 % (0-3) Basophils (%) (Auto) 0 % (0-3) Neutrophils # (Auto) 8.9 x10^3uL (1.8-7.7) Lymphocytes # (Auto) 0.6 x10^3/uL (1.0-4.8) Monocytes # (Auto) 0.6 x10^3/uL (0.0-1.1) Eosinophils # (Auto) 0.0 x10^3/uL (0.0-0.7) Basophils # (Auto) 0.0 x10^3/uL (0.0-0.2) Segmented Neutrophils % 68 % (35-66) Band Neutrophils % 21 % (0-9) Lymphocytes % 5 % (24-48) Monocytes % 6 % (0-10) Platelet Estimate Decreased (ADEQUATE) Anisocytosis Present Sodium Level 140 mmol/L (136-145) Potassium Level 3.4 mmol/L (3.5-5.1) Chloride Level 102 mmol/L (98-107) Carbon Dioxide Level 31 mmol/L (21-32) Anion Gap 7 (6-14) Blood Urea Nitrogen 9 mg/dL (7-20) Creatinine 0.6 mg/dL (0.6-1.0) Estimated GFR (Cockcroft-Gault) 101.0 BUN/Creatinine Ratio 15 (6-20) Glucose Level 101 mg/dL (70-99) Calcium Level 7.9 mg/dL (8.5-10.1) Total Bilirubin 0.2 mg/dL (0.2-1.0) Aspartate Amino Transf (AST/SGOT) 66 U/L (15-37) Alanine Aminotransferase (ALT/SGPT) 23 U/L (14-59) Alkaline Phosphatase 72 U/L (46-116) Total Protein 5.9 g/dL (6.4-8.2) Albumin 1.9 g/dL (3.4-5.0) Albumin/Globulin Ratio 0.5 (1.0-1.7) Procalcitonin 5.33 ng/mL (0.00-0.10) Test 02/03/19 07:33 02/03/19 10:32 02/03/19 16:40 02/03/19 20:55 Glucose (Fingerstick) 87 mg/dL (70-99) 134 mg/dL (70-99) 102 mg/dL (70-99) 152 mg/dL (70-99) Test 02/03/19 23:15 02/04/19 04:20 02/04/19 06:30 02/04/19 07:11 Vancomycin Level Trough 11.8 mcg/mL (10.0-20.0) Vancomycin Last Dose Date [id number] Vancomycin Last Dose Time 1200 Sodium Level 141 mmol/L (136-145) Potassium Level 3.3 mmol/L (3.5-5.1) Chloride Level 100 mmol/L (98-107) Carbon Dioxide Level 38 mmol/L (21-32) Anion Gap 3 (6-14) Blood Urea Nitrogen 6 mg/dL (7-20) Creatinine 0.5 mg/dL (0.6-1.0) Estimated GFR (Cockcroft-Gault) 124.6 Glucose Level 122 mg/dL (70-99) Calcium Level 8.1 mg/dL (8.5-10.1) Procalcitonin 0.19 ng/mL (0.00-0.10) Erythrocyte Sedimentation Rate 47 (0-25) Glucose (Fingerstick) 109 mg/dL (70-99) Laboratory Tests Test 02/03/19 16:40 02/03/19 20:55 02/03/19 23:15 02/04/19 04:20 Glucose (Fingerstick) 102 mg/dL (70-99) 152 mg/dL (70-99) Vancomycin Level Trough 11.8 mcg/mL (10.0-20.0) Vancomycin Last Dose Date Vancomycin Last Dose Time 1200 Sodium Level 141 mmol/L (136-145) Potassium Level 3.3 mmol/L (3.5-5.1) Chloride Level 100 mmol/L (98-107) Carbon Dioxide Level 38 mmol/L (21-32) Anion Gap 3 (6-14) Blood Urea Nitrogen 6 mg/dL (7-20) Creatinine 0.5 mg/dL (0.6-1.0) Estimated GFR (Cockcroft-Gault) 124.6 Glucose Level 122 mg/dL (70-99) Calcium Level 8.1 mg/dL (8.5-10.1) Procalcitonin 0.19 ng/mL (0.00-0.10) Test 02/04/19 06:30 02/04/19 07:11 Erythrocyte Sedimentation Rate 47 (0-25) Glucose (Fingerstick) 109 mg/dL (70-99) Medications Active Scripts Medications Dose Route/Sig Max Daily Dose Days Date Category Dose Instructions Xiidra (Lifitegrast) 1 Each Droperette 1 Each OP BID 02/02/19 Reported Vitamin D (Cholecalciferol (Vitamin D3)) 5,000 Unit Capsule 5,000 Unit PO WEEKLY 02/02/19 Reported Tylenol Extra Strength (Acetaminophen) 500 Mg Tablet 2 Mg PO DAILY 02/02/19 Reported Triple Antibiotic Ointment (Neomy Sulf/Bacitrac Zn/Poly) 1 Each Oint.pack 1 Each TP HS 02/02/19 Reported Triamcinolone Acetonide 0.1% Oint (Triamcinolone Acetonide) 15 Gm Oint...g. 1 Rosa TP BID 02/02/19 Reported MIX WITH EUCERIN DIRECTED BY PHYSICIAN Trazodone Hcl 50 Mg Tablet 1 Tab PO QHS 02/02/19 Reported Tramadol Hcl 50 Mg Tablet 75 Mg PO TID PRN 02/02/19 Reported Xarelto (Rivaroxaban) 20 Mg Tablet 20 Mg PO DAILY 02/02/19 Reported Risperdal (Risperidone) 1 Mg Tablet 1 Mg PO QHS 02/02/19 Reported Proventil Hfa Inhaler (Albuterol Sulfate) 6.7 Gm Hfa.aer.ad 1 Puff IH PRN Q4HRS PRN 02/02/19 Reported Protonix (Pantoprazole Sodium) 20 Mg Tablet.dr 40 Mg PO DAILY 02/02/19 Reported Potassium Chloride 20 Meq Tablet.er 20 Meq PO DAILY 02/02/19 Reported Miralax (Polyethylene Glycol 3350) 17 Gm Powd.pack 1 Packet PO DAILY PRN 02/02/19 Reported Pilocarpine Hcl 5 Mg Tablet 10 Mg PO TID 02/02/19 Reported Oxybutynin Chloride Er (Oxybutynin Chloride) 15 Mg Tab.er.24 1 Tab PO DAILY 02/02/19 Reported Meclizine Hcl 25 Mg Tablet 1 Tab PO TID 02/02/19 Reported Lyrica (Pregabalin) 75 Mg Capsule 1 Cap PO TID 02/02/19 Reported Loratadine 10 Mg Tablet 1 Tab PO DAILY 02/02/19 Reported Levothyroxine Sodium 175 Mcg Tablet 1 Tab PO DAILY 02/02/19 Reported Lasix (Furosemide) 20 Mg Tablet 1 Tab PO DAILY 02/02/19 Reported Hydroxyzine Hcl 25 Mg Tablet 1 Tab PO BID 02/02/19 Reported Divalproex Sodium Er (Divalproex Sodium) 500 Mg Tab.er.24h 2 Tab PO QHS 02/02/19 Reported Divalproex Sodium Er (Divalproex Sodium) 500 Mg Tab.er.24h 1 Tab PO DAILY 02/02/19 Reported Colace (Docusate Sodium) 100 Mg Capsule 1 Cap PO BID 02/02/19 Reported Celexa (Citalopram Hydrobromide) 40 Mg Tablet 1 Tab PO DAILY 02/02/19 Reported Celebrex (Celecoxib) 200 Mg Capsule 1 Cap PO DAILY 02/02/19 Reported [calcium alginate] 1 Ea TP HS 02/02/19 Reported Budesonide 0.5 Mg/2 Ml Ampul.neb 1 Vial NEB BID 02/02/19 Reported Biofreeze (Menthol) 118 Ml Gel..ml. 118 Ml TP TID 02/02/19 Reported Baclofen 10 Mg Tablet 1 Tab PO TID 02/02/19 Reported Artificial Tears Eye Drops (Dextran 70/Hypromellose) 15 Ml Drops 1 Drop EACHEYE PRN PRN 02/02/19 Reported Amlodipine Besylate 5 Mg Tablet 5 Mg PO DAILY 02/02/19 Reported Albuterol Sulfate Neb Soln (Albuterol Sulfate) 2.5 Mg/3 Ml Vial.neb 1 Vial NEB PRN Q4HRS 02/02/19 Reported Impression . IMPRESSION: 1. Acute hypoxemic respiratory failure. 2. Sepsis. 3. Toxic metabolic encephalopathy. 4. Positive urinalysis, suspect urinary tract infection. 5. Multiple allergies as indicated above. 6. Obesity. CT CHEST 02/02 1. Patchy linear airspace opacities identified in the lungs likely atelectasis or infiltrates. Follow-up to resolution. 2. Enlarged appearing mediastinal and bilateral hilar lymph nodes identified, nonspecific. Examination limited due to lack of IV contrast. Plan . CONITNUE THE SAME HOPEFULLY TRANSFER TO [facility] WITH ID QHS BIPAP ANTIBX UP TO CHAIR PT DOES NOT WALK SAUD WASHBURN MD Feb 04, 2019 11:07
--- NOTE | 2019-02-04 11:31 | PDOC ---
Infectious Disease Note Subjective: Subjective Pt says feels little better still has cough and swelling and pain in the lle no n/c/d/abdo pain ROS: ROS Negative except for above. Vital Signs: Vital Signs Vital Signs Date Time Temp Pulse Resp B/P (MAP) Pulse Ox O2 Delivery O2 Flow Rate FiO2 02/04/19 11:07 98.6 68 20 154/76 (102) 98 Nasal Cannula 4.0 98.6 Physical Exam: PHYSICAL EXAM GENERAL: Alert, oriented female, eating lunch, in no acute distress, cooperative. HEENT: Normocephalic, atraumatic, anicteric. NECK: Supple. LUNGS: dec bs at bases, No wheezing. HEART: S1, S2. No gallops or murmurs. ABDOMEN: Soft, nontender, nondistended. EXTREMITIES: Left lower extremity swelling, blister over lower leg with no fluid collection, no purulence. Erythema going up to the left thigh with induration. NEUROLOGIC: Alert and oriented, grossly nonfocal. Medications: Inpatient Meds: Current Medications Medications (Trade) Dose Ordered Sig/Holden Start Time Stop Time Status Last Admin Dose Admin Acetaminophen (Tylenol) 1,000 mg DAILY 02/03/19 10:30 02/04/19 10:03 1,000 MG Acetaminophen/ Codeine Phosphate (Tylenol #3) 1 tab PRN Q6HRS PRN 02/03/19 09:30 Albuterol/ Ipratropium (Duoneb) 3 ml RTQID 02/03/19 12:00 02/04/19 10:41 3 ML Amlodipine Besylate (Norvasc) 5 mg DAILY 02/03/19 10:00 02/04/19 10:00 5 MG Artificial Tears (Artificial Tears) 1 drop PRN Q15MIN PRN 02/03/19 10:00 02/03/19 13:09 1 DROP Ascorbic Acid (Vitamin C) 500 mg DAILY 02/03/19 12:00 02/04/19 09:58 500 MG Baclofen (Lioresal) 10 mg TID 02/03/19 10:00 02/04/19 09:59 10 MG Budesonide (Pulmicort) 0.5 mg BID 02/03/19 21:00 02/04/19 09:00 0.5 MG Calcium Carbonate/ Glycine (Tums) 500 mg PRN AFTMEALHC PRN 02/03/19 09:15 Cefepime HCl (Maxipime) 2 gm Q8HRS 02/02/19 14:00 UNV Ceftriaxone Sodium (Rocephin) 1 gm 1X ONCE 02/02/19 09:45 02/02/19 09:46 UNV Celecoxib (CeleBREX) 200 mg DAILY 02/03/19 10:30 02/03/19 11:40 DC Cetirizine HCl (ZyrTEC) 10 mg DAILY 02/03/19 10:00 02/04/19 09:58 10 MG Citalopram Hydrobromide (CeleXA) 40 mg DAILY 02/03/19 10:30 02/04/19 09:57 40 MG Dextrose (Dextrose 50%-Water Syringe) 12.5 gm PRN Q15MIN PRN 02/02/19 17:00 Diphenhydramine HCl (Benadryl) 25 mg PRN QHS PRN 02/03/19 09:15 Divalproex Sodium (Depakote Er) 1,000 mg QHS 02/03/19 21:00 02/03/19 20:38 1,000 MG Dobutamine HCl/ Dextrose 250 ml @ 0 mls/hr CONT PRN 02/02/19 10:45 Cancel Docusate Sodium (Colace) 100 mg BID 02/03/19 10:00 02/04/19 10:11 100 MG Furosemide (Lasix) 40 mg BID92 02/03/19 18:00 02/04/19 10:01 40 MG Guaifenesin (Robitussin Dm) 10 ml PRN Q6HRS PRN 02/03/19 09:15 Hydroxyzine Pamoate (Vistaril) 25 mg BID 02/03/19 10:00 02/04/19 09:59 25 MG Info (Anti-Coagulation Monitoring By Pharmacy) 1 each PRN DAILY PRN 02/03/19 13:00 02/03/19 17:52 1 EACH Insulin Human Lispro (HumaLOG) 0-5 UNITS TIDWMEALS 02/02/19 17:30 02/03/19 09:17 DC Lactobacillus Rhamnosus (Culturelle) 1 cap BID 02/03/19 21:00 02/04/19 09:59 1 CAP Levothyroxine Sodium (Synthroid) 175 mcg DAILY07 3/27/19 10:00 02/04/19 05:28 175 MCG Linezolid (Zyvox) 600 mg BID 02/03/19 21:00 02/04/19 09:59 600 MG Meclizine HCl (Antivert) 25 mg PRN TID PRN 02/03/19 10:00 Multi-Ingredient Ointment (Analgesic [place]) 1 kashif PRN QID PRN 02/03/19 10:00 Neomycin/ Polymyxin/ Bacitracin (Triple Antibiotic Ointment) 1 pkt HS 02/03/19 21:00 Non-Formulary Medication (Lifitegrast (Xiidra)) 1 each BID 02/03/19 21:00 UNV Non-Formulary Medication ([calcium alginate] ) 1 ea HS 02/03/19 21:00 UNV Nystatin (Nystop) 1 kashif BID 02/02/19 21:00 02/04/19 10:12 1 KASHIF Ondansetron HCl (Zofran) 4 mg PRN Q6HRS PRN 02/03/19 09:30 Oxybutynin Chloride (Ditropan) 5 mg NUM411 02/03/19 14:00 02/04/19 09:58 5 MG Pantoprazole Sodium (Protonix) 40 mg DAILYAC 02/03/19 10:00 02/04/19 05:28 40 MG Pilocarpine HCl (Salagen) 10 mg TID 02/03/19 10:30 02/04/19 10:11 10 MG Piperacillin Sod/ Tazobactam Sod 3.375 gm/Sodium Chloride 50 ml @ 100 mls/hr 1X ONCE 02/02/19 10:45 02/02/19 10:45 DC Piperacillin Sod/ Tazobactam Sod 4.5 gm/Sodium Chloride 100 ml @ 200 mls/hr Q6HRS 02/02/19 11:15 02/04/19 05:28 200 MLS/HR Polyethylene Glycol (miraLAX PACKET) 17 gm PRN DAILY PRN 02/03/19 09:00 Potassium Chloride (Klor-Con) 20 meq DAILY08 02/03/19 10:30 02/04/19 10:00 20 MEQ Pregabalin (Lyrica) 75 mg TID 02/03/19 10:00 02/04/19 09:58 75 MG Risperidone (RisperDAL) 1 mg QHS 02/03/19 21:00 02/03/19 20:38 1 MG Rivaroxaban (Xarelto) 20 mg DAILY 02/03/19 10:00 02/04/19 10:00 20 MG Sodium Chloride 1,000 ml @ 1,650 mls/hr Q37M 02/02/19 11:00 02/02/19 12:00 DC 02/02/19 11:50 1,650 MLS/HR Throat Lozenges (Cepacol Sore Throat Lozenge) 1 melvin PRN Q2HRS PRN 02/03/19 09:15 Tramadol HCl (Ultram) 75 mg PRN TID PRN 02/03/19 09:30 02/04/19 10:03 75 MG Trazodone HCl (Desyrel) 50 mg QHS 02/03/19 21:00 02/03/19 20:38 50 MG Triamcinolone Acetonide (Kenalog) 1 kashif BID 02/03/19 21:00 Vancomycin HCl (Vanco Per Pharmacy) 1 each PRN DAILY PRN 02/02/19 10:45 02/04/19 00:32 1 EACH Vancomycin HCl (Vancomycin Trough Level) 1 each 1X ONCE 02/04/19 23:30 02/04/19 23:31 Vancomycin HCl 2 gm/Sodium Chloride 500 ml @ 250 mls/hr Q8H 02/04/19 00:00 02/04/19 08:14 250 MLS/HR Vitamin D (Vitamin D3) 5,000 unit WEEKLY 02/03/19 10:00 02/03/19 11:37 5,000 UNIT Zinc Acetate/ Diphenhydramine (Benadryl Topical) 1 kashif TID PRN 02/03/19 11:45 Labs: Lab Laboratory Tests Test 02/03/19 16:40 02/03/19 20:55 02/03/19 23:15 02/04/19 04:20 Glucose (Fingerstick) 102 mg/dL (70-99) 152 mg/dL (70-99) Vancomycin Level Trough 11.8 mcg/mL (10.0-20.0) Vancomycin Last Dose Date Vancomycin Last Dose Time 1200 Sodium Level 141 mmol/L (136-145) Potassium Level 3.3 mmol/L (3.5-5.1) Chloride Level 100 mmol/L (98-107) Carbon Dioxide Level 38 mmol/L (21-32) Anion Gap 3 (6-14) Blood Urea Nitrogen 6 mg/dL (7-20) Creatinine 0.5 mg/dL (0.6-1.0) Estimated GFR (Cockcroft-Gault) 124.6 Glucose Level 122 mg/dL (70-99) Calcium Level 8.1 mg/dL (8.5-10.1) Procalcitonin 0.19 ng/mL (0.00-0.10) Test 02/04/19 06:30 02/04/19 07:11 Erythrocyte Sedimentation Rate 47 (0-25) Glucose (Fingerstick) 109 mg/dL (70-99) Objective: Assessment: LABORATORY DATA: WBC was 29,000, this morning is 10.2; hemoglobin 11; hematocrit 34.1; platelets 133. Sodium 131, potassium 4.1, chloride 92, bicarbonate 30, BUN 21, creatinine 1.0, lactate 3.4. Procalcitonin 9.11. UA shows large leukocyte esterase, wbc's too numerous to count. Influenza screen negative. IMAGING: Chest CT as above. IMPRESSION: 1. Sepsis, source likely respiratory and left lower extremity cellulitis. 2. Fever. 3. Leukocytosis. 4. Lactic acidosis. 5. Urinary tract infection with pyuria. 6. Bilateral pulmonary infiltrate. 7. Mixed hypercapnic respiratory failure. 8. Bandemia. 9. retirement resident. Plan: Plan of Care Continue empiric IV vancomycin and Zosyn. Monitor renal functions closely cont Zyvox for toxin binding for a total of 3 days Elevate left lower extremity. Follow up culture and susceptibility results. Follow up labs in [facility] Johnson MD Feb 04, 2019 11:31
--- NOTE | 2019-02-04 13:46 | NUR ---
HELENA faxed updated clinicals to [facility] [place] [facility], phone: [phone], fax: [phone]. Will continue to follow.
[2019-02-04 14:49] VITALS: BP 145/78
[2019-02-04] MEDS: NEOMY/BACITR/POLYMYXIN OINT PACKET. TP SCH (18:20)
[2019-02-04 19:55] VITALS: BP 130/68
[2019-02-04] MEDS: traZODone 50 MG TABLET. PO SCH (20:48)
[2019-02-04] MEDS: risperiDONE 1 MG TABLET. PO SCH (20:48)
[2019-02-04] MEDS: POLYVINYL ALCOHOL 1.4% OPHTH SOLUTION 15ML BOTTLE. OU PRN (22:41)
[2019-02-04 23:11] VITALS: BP 136/67
[2019-02-05] LABS: VANC TR 20.4 mcg/mL (10.0-20.0)
[2019-02-05] MEDS: VANCOMYCIN 2 GM in IV NORMAL SALINE 500ML BAG 500 ML IV SCH ×2 (00:10→09:02)
[2019-02-05] MEDS: VANCOMYCIN PER PHARMACY MC PRN (03:05)
--- NOTE | 2019-02-05 03:05 | NUR ---
Pharmacy Vancomycin Dosing Note S:Consulted to monitor and dose vancomycin started 02/02/19. O:ROGE RAM is a 63 year old F with Sepsis Pneumonia . Height: 5 feet, 5 inches Weight: 140.061311 kg Moss Body Weight: 57.00 Adjusted Body Weight: 88.60 Dosing Weight: Actual Other Antibiotics: ZOSYN LABS: Last BUN: 9 Last Creatinine: 0.6 Creatinine Clearance: >100 mL/min Last WBC: 10.2 Last Procalcitonin: 5.33 Tmax (past 24 hours): 99.1 Microbiology: I/O: 3504/1500 Drug Levels: Last Trough level: 20.4, TRUE TROUGH 18 on 02/04/19 at 2330 Last dose given 02/03/19 at 1305 Vancomycin Dosing: Loading Dose: 2000 mg x1 Dosing Weight: Actual Target Trough: 15-20 A: Based on: TRUE TROUGH 18 P: 1. Continue Vancomycin 2000 mg IV q8h 2. Follow up Trough level IF NEEDED 3. Pharmacy will continue to monitor, follow and adjust therapy as needed. NICOLE CUEVAS RPH, 02/05/19304 Signed: 02/05/19 at 0305 by NICOLE CUEVAS RPH PHA
[2019-02-05 03:20] VITALS: BP 161/79
[2019-02-05] MEDS: PIPERACILLIN/TAZOBACTAM 4.5 GM in IV NORMAL SALINE 100ML 100 ML IV SCH (05:39)
[2019-02-05] MEDS: LEVOTHYROXINE 175 MCG TABLET PO SCH (05:39)
[2019-02-05] MEDS: PANTOPRAZOLE 40 MG TABLET.DR. PO SCH (05:39)
[2019-02-05 07:00] VITALS: BP 176/74
[2019-02-05] MEDS: BUDESONIDE 0.5 MG/2 ML NEBU. NEB SCH ×2 (07:10→20:08)
[2019-02-05] MEDS: IPRATRPIUM/ALBUTEROL 0.5/2.5MG 3 ML NEBU. NEB SCH ×4 (07:10→20:08)
[2019-02-05] MEDS ORDERED: POTASSIUM CHLORIDE 20 MEQ TABLET.ER. PO ONE (09:00)
[2019-02-05] MEDS: PREGABALIN 75 MG CAPSULE PO SCH ×3 (09:00→21:41)
[2019-02-05] MEDS: traMADol 50 MG TABLET PO PRN ×2 (09:03→18:40)
[2019-02-05] MEDS: LINEZOLID 600 MG TABLET PO SCH (09:04)
[2019-02-05] MEDS: DIVALPROEX EXTENDED RELEASE 500 MG TAB.ER.24H. PO SCH ×2 (09:04→21:39)
[2019-02-05] MEDS: ASCORBIC ACID 500 MG TABLET PO SCH (09:04)
[2019-02-05] MEDS: RIVAROXABAN 10 MG TABLET. PO SCH (09:04)
[2019-02-05] MEDS: CITALOPRAM 20 MG TABLET. PO SCH (09:05)
[2019-02-05] MEDS: ACETAMINOPHEN 500 MG TABLET PO SCH (09:05)
[2019-02-05] MEDS: BACLOFEN 10 MG TABLET. PO SCH ×3 (09:05→21:40)
[2019-02-05] MEDS: LACTOBACILLUS RHAMNOSUS GG 1 CAPSULE. PO SCH ×2 (09:05→21:40)
[2019-02-05] MEDS: hydrOXYzine PAMOATE 25 MG CAPSULE PO SCH ×2 (09:05→21:40)
[2019-02-05] MEDS: POTASSIUM CHLORIDE 20 MEQ TABLET.ER. PO SCH (09:05)
[2019-02-05] MEDS: FUROSEMIDE 40 MG/4 ML VIAL. IVP SCH ×2 (09:06→14:32)
[2019-02-05] MEDS: amLODIPine BESYLATE 5 MG TABLET PO SCH (09:06)
[2019-02-05] MEDS: OXYBUTYNIN CHLORIDE 5 MG TABLET PO SCH ×3 (09:06→21:41)
[2019-02-05] MEDS: TRIAMCINOLONE ACETONIDE 0.1% TOPICAL OINTMENT 15GM TUBE. TP SCH ×2 (09:06→21:41)
[2019-02-05] MEDS: POLYVINYL ALCOHOL 1.4% OPHTH SOLUTION 15ML BOTTLE. OU PRN (09:07)
[2019-02-05] MEDS: NYSTATIN TOPICAL POWDER 15GM BOTTLE. TP SCH ×2 (09:07→21:41)
--- NOTE | 2019-02-05 09:35 | PDOC ---
PULMONARY PROGRESS NOTES Subjective PT MORE AWAKE AND LESS SOA Vitals Vital Signs Date Time Temp Pulse Resp B/P (MAP) Pulse Ox O2 Delivery O2 Flow Rate FiO2 02/05/19 09:06 57 161/79 02/05/19 09:03 17 Nasal Cannula 4.0 02/05/19 07:10 96 02/05/19 03:20 97.7 97.7 ROS: No Nausea, No Chest Pain, No Abdominal Pain, No Increase Cough Lungs: Wheezing Cardiovascular: S1, S2 Abdomen: Soft, Other (OBESE) Neuro Exam: Alert Extremities: Other (EDEMA) Skin: Warm Labs Laboratory Tests Test 02/03/19 10:32 02/03/19 16:40 02/03/19 20:55 02/03/19 23:15 Glucose (Fingerstick) 134 mg/dL (70-99) 102 mg/dL (70-99) 152 mg/dL (70-99) Vancomycin Level Trough 11.8 mcg/mL (10.0-20.0) Vancomycin Last Dose Date [id number] Vancomycin Last Dose Time 1200 Test 02/04/19 04:20 02/04/19 06:30 02/04/19 07:11 02/04/19 11:26 Sodium Level 141 mmol/L (136-145) Potassium Level 3.3 mmol/L (3.5-5.1) Chloride Level 100 mmol/L (98-107) Carbon Dioxide Level 38 mmol/L (21-32) Anion Gap 3 (6-14) Blood Urea Nitrogen 6 mg/dL (7-20) Creatinine 0.5 mg/dL (0.6-1.0) Estimated GFR (Cockcroft-Gault) 124.6 Glucose Level 122 mg/dL (70-99) Calcium Level 8.1 mg/dL (8.5-10.1) Procalcitonin 0.19 ng/mL (0.00-0.10) Erythrocyte Sedimentation Rate 47 (0-25) Glucose (Fingerstick) 109 mg/dL (70-99) 138 mg/dL (70-99) Test 02/04/19 16:24 02/04/19 20:35 02/04/19 23:20 02/05/19 07:54 Glucose (Fingerstick) 116 mg/dL (70-99) 141 mg/dL (70-99) 104 mg/dL (70-99) Vancomycin Level Trough 20.4 mcg/mL (10.0-20.0) Vancomycin Last Dose Date Vancomycin Last Dose Time 1600 Laboratory Tests Test 02/04/19 11:26 02/04/19 16:24 02/04/19 20:35 02/04/19 23:20 Glucose (Fingerstick) 138 mg/dL (70-99) 116 mg/dL (70-99) 141 mg/dL (70-99) Vancomycin Level Trough 20.4 mcg/mL (10.0-20.0) Vancomycin Last Dose Date Vancomycin Last Dose Time 1600 Test 02/05/19 07:54 Glucose (Fingerstick) 104 mg/dL (70-99) Medications Active Scripts Medications Dose Route/Sig Max Daily Dose Days Date Category Dose Instructions Xiidra (Lifitegrast) 1 Each Droperette 1 Each OP BID 02/02/19 Reported Vitamin D (Cholecalciferol (Vitamin D3)) 5,000 Unit Capsule 5,000 Unit PO WEEKLY 02/02/19 Reported Tylenol Extra Strength (Acetaminophen) 500 Mg Tablet 2 Mg PO DAILY 02/02/19 Reported Triple Antibiotic Ointment (Neomy Sulf/Bacitrac Zn/Poly) 1 Each Oint.pack 1 Each TP HS 02/02/19 Reported Triamcinolone Acetonide 0.1% Oint (Triamcinolone Acetonide) 15 Gm Oint...g. 1 Rosa TP BID 02/02/19 Reported MIX WITH EUCERIN DIRECTED BY PHYSICIAN Trazodone Hcl 50 Mg Tablet 1 Tab PO QHS 02/02/19 Reported Tramadol Hcl 50 Mg Tablet 75 Mg PO TID PRN 02/02/19 Reported Xarelto (Rivaroxaban) 20 Mg Tablet 20 Mg PO DAILY 02/02/19 Reported Risperdal (Risperidone) 1 Mg Tablet 1 Mg PO QHS 02/02/19 Reported Proventil Hfa Inhaler (Albuterol Sulfate) 6.7 Gm Hfa.aer.ad 1 Puff IH PRN Q4HRS PRN 02/02/19 Reported Protonix (Pantoprazole Sodium) 20 Mg Tablet.dr 40 Mg PO DAILY 02/02/19 Reported Potassium Chloride 20 Meq Tablet.er 20 Meq PO DAILY 02/02/19 Reported Miralax (Polyethylene Glycol 3350) 17 Gm Powd.pack 1 Packet PO DAILY PRN 02/02/19 Reported Pilocarpine Hcl 5 Mg Tablet 10 Mg PO TID 02/02/19 Reported Oxybutynin Chloride Er (Oxybutynin Chloride) 15 Mg Tab.er.24 1 Tab PO DAILY 02/02/19 Reported Meclizine Hcl 25 Mg Tablet 1 Tab PO TID 02/02/19 Reported Lyrica (Pregabalin) 75 Mg Capsule 1 Cap PO TID 02/02/19 Reported Loratadine 10 Mg Tablet 1 Tab PO DAILY 02/02/19 Reported Levothyroxine Sodium 175 Mcg Tablet 1 Tab PO DAILY 02/02/19 Reported Lasix (Furosemide) 20 Mg Tablet 1 Tab PO DAILY 02/02/19 Reported Hydroxyzine Hcl 25 Mg Tablet 1 Tab PO BID 02/02/19 Reported Divalproex Sodium Er (Divalproex Sodium) 500 Mg Tab.er.24h 2 Tab PO QHS 02/02/19 Reported Divalproex Sodium Er (Divalproex Sodium) 500 Mg Tab.er.24h 1 Tab PO DAILY 02/02/19 Reported Colace (Docusate Sodium) 100 Mg Capsule 1 Cap PO BID 02/02/19 Reported Celexa (Citalopram Hydrobromide) 40 Mg Tablet 1 Tab PO DAILY 02/02/19 Reported Celebrex (Celecoxib) 200 Mg Capsule 1 Cap PO DAILY 02/02/19 Reported [calcium alginate] 1 Ea TP HS 02/02/19 Reported Budesonide 0.5 Mg/2 Ml Ampul.neb 1 Vial NEB BID 02/02/19 Reported Biofreeze (Menthol) 118 Ml Gel..ml. 118 Ml TP TID 02/02/19 Reported Baclofen 10 Mg Tablet 1 Tab PO TID 02/02/19 Reported Artificial Tears Eye Drops (Dextran 70/Hypromellose) 15 Ml Drops 1 Drop EACHEYE PRN PRN 02/02/19 Reported Amlodipine Besylate 5 Mg Tablet 5 Mg PO DAILY 02/02/19 Reported Albuterol Sulfate Neb Soln (Albuterol Sulfate) 2.5 Mg/3 Ml Vial.neb 1 Vial NEB PRN Q4HRS 02/02/19 Reported Impression . IMPRESSION: 1. Acute hypoxemic respiratory failure. 2. Sepsis. 3. Toxic metabolic encephalopathy. 4. Positive urinalysis, suspect urinary tract infection. 5. Multiple allergies as indicated above. 6. Obesity. CT CHEST 02/02 1. Patchy linear airspace opacities identified in the lungs likely atelectasis or infiltrates. Follow-up to resolution. 2. Enlarged appearing mediastinal and bilateral hilar lymph nodes identified, nonspecific. Examination limited due to lack of IV contrast. Plan . ANTIBX PER ID RESP STATUS IS COMPENSATED QHS BIPAP ANTIBX UP TO CHAIR PT DOES NOT WALK SAUD WASHBURN MD Feb 05, 2019 09:35
[2019-02-05 11:00] VITALS: BP 139/61
--- NOTE | 2019-02-05 11:17 | PDOC ---
PROGRESS NOTES Chief Complaint Chief Complaint BIlateral infiltrates-pneumonia SNU resident Bedbound because of acute on chronic lymphedema - neg DVT Sepsis present on admission, elevated lactate 3.7, WBC 30 UTI in an SNU resident-, complicated UTI Mixed hypercapnic hypoxic respiratory failure - BIPAP AJ on CPAP at SNU Flu negative Fevers Obesity, BMI 50 DNR History of Present Illness History of Present Illness Asleep, I did not awaken NO signif events overnight Urine Culture negative blood culture negative ESR 47 with no fevers and no white count On Vanco and Zosyn per ID Sister is the DPOA DNR SNU resident Bedbound because of acute and chronic lymphedema-claims she is on Lasix in SNU once a day Flu negative Pulmonary has ordered a chest CT-atelectasis vs infiltrates bases WBC down to 10 from 30 on admission She has an external wick ABG reviewed, on admit: pH 7.4, CO2 48, oh to 53, BiPAP at bedside - has cpap at SNU CAnt ambulate,. legs still swollen Plan COnt lasix BID Elytes while on lasix Continue IV antibiotics per ID Patient on Xarelto continue this I did recommend to ambulate with PT DNR BAck to SNU on dc when shifted to PO ab\x STill following BCs dw RN at bedside Vitals Vitals Vital Signs Date Time Temp Pulse Resp B/P (MAP) Pulse Ox O2 Delivery O2 Flow Rate FiO2 02/05/19 09:06 57 161/79 02/05/19 09:03 17 Nasal Cannula 4.0 02/05/19 07:10 96 02/05/19 07:00 96.4 96.4 Physical Exam Physical Exam GENERAL: Alert, oriented female, eating lunch, in no acute distress, cooperative. HEENT: Normocephalic, atraumatic, anicteric. NECK: Supple. LUNGS: dec bs at bases, No wheezing. HEART: S1, S2. No gallops or murmurs. ABDOMEN: Soft, nontender, nondistended. EXTREMITIES: Left lower extremity swelling, blister over lower leg with no fluid collection, no purulence. Erythema going up to the left thigh with induration. NEUROLOGIC: Alert and oriented, grossly nonfocal. General: Alert, Oriented X3, Cooperative, No acute distress Heart: Regular rate, Normal S1, Normal S2 Lungs: Wheezing Abdomen: Normal bowel sounds, Soft, Other (obese, nontender, normoactive bowel sounds) Extremities: Other (S3 pitting edema, some excoriations of foot, red warm tender juice E left leg wounds-wound care consulted, lateral foot drop) Skin: Other (asper above) Labs LABS Laboratory Tests Test 02/04/19 11:26 02/04/19 16:24 02/04/19 20:35 02/04/19 23:20 Glucose (Fingerstick) 138 mg/dL (70-99) 116 mg/dL (70-99) 141 mg/dL (70-99) Vancomycin Level Trough 20.4 mcg/mL (10.0-20.0) Vancomycin Last Dose Date [id number] Vancomycin Last Dose Time 1600 Test 02/05/19 07:54 Glucose (Fingerstick) 104 mg/dL (70-99) Review of Systems Review of Systems Asleep I did not awaken Assessment and Plan Assessmemt and Plan Problems Medical Problems: (1) Severe sepsis Status: Acute Comment Review of Relevant I have reviewed the following items katie (where applicable) has been applied. Labs Laboratory Tests Test 02/03/19 16:40 02/03/19 20:55 02/03/19 23:15 02/04/19 04:20 Glucose (Fingerstick) 102 mg/dL (70-99) 152 mg/dL (70-99) Vancomycin Level Trough 11.8 mcg/mL (10.0-20.0) Vancomycin Last Dose Date [id number] Vancomycin Last Dose Time 1200 Sodium Level 141 mmol/L (136-145) Potassium Level 3.3 mmol/L (3.5-5.1) Chloride Level 100 mmol/L (98-107) Carbon Dioxide Level 38 mmol/L (21-32) Anion Gap 3 (6-14) Blood Urea Nitrogen 6 mg/dL (7-20) Creatinine 0.5 mg/dL (0.6-1.0) Estimated GFR (Cockcroft-Gault) 124.6 Glucose Level 122 mg/dL (70-99) Calcium Level 8.1 mg/dL (8.5-10.1) Procalcitonin 0.19 ng/mL (0.00-0.10) Test 02/04/19 06:30 02/04/19 07:11 02/04/19 11:26 02/04/19 16:24 Erythrocyte Sedimentation Rate 47 (0-25) Glucose (Fingerstick) 109 mg/dL (70-99) 138 mg/dL (70-99) 116 mg/dL (70-99) Test 02/04/19 20:35 02/04/19 23:20 02/05/19 07:54 Glucose (Fingerstick) 141 mg/dL (70-99) 104 mg/dL (70-99) Vancomycin Level Trough 20.4 mcg/mL (10.0-20.0) Vancomycin Last Dose Date Vancomycin Last Dose Time 1600 Laboratory Tests Test 02/04/19 11:26 02/04/19 16:24 02/04/19 20:35 02/04/19 23:20 Glucose (Fingerstick) 138 mg/dL (70-99) 116 mg/dL (70-99) 141 mg/dL (70-99) Vancomycin Level Trough 20.4 mcg/mL (10.0-20.0) Vancomycin Last Dose Date Vancomycin Last Dose Time 1600 Test 02/05/19 07:54 Glucose (Fingerstick) 104 mg/dL (70-99) Microbiology 02/02/19 Blood Culture - Preliminary, Resulted NO GROWTH AFTER 3 DAYS 02/02/19 Urine Culture - Final, Complete 02/02/19 Urine Culture Result 1 (RITA) - Final, Complete Medications Current Medications Ceftriaxone Sodium (Rocephin) 1 gm 1X ONCE IVP ; Start 02/02/19 at 09:45; Stop 02/02/19 at 09:46; Status UNV Sodium Chloride 1,000 ml @ 1,000 mls/hr 1X ONCE IV Last administered on at 11:46; Start 02/02/19 at 10:45; Stop 02/02/19 at 11:44; Status DC Piperacillin Sod/ Tazobactam Sod 3.375 gm/Sodium Chloride 50 ml @ 100 mls/hr 1X ONCE IV ; Start 02/02/19 at 10:45; Stop 02/02/19 at 10:45; Status DC Vancomycin HCl 250 ml @ 250 mls/hr 1X ONCE IV ; Start 02/02/19 at 10:45; Stop 02/02/19 at 11:44; Status UNV Ondansetron HCl (Zofran) 4 mg PRN Q8HRS PRN IV NAUSEA/VOMITING; Start 02/02/19 at 10:45; Stop 02/03/19 at 09:17; Status DC Sodium Chloride 1,000 ml @ 150 mls/hr Q6H40M IV Last administered on at 08:01; Start 02/02/19 at 11:00; Stop 02/03/19 at 10:59; Status DC Acetaminophen (Tylenol) 650 mg PRN Q4HRS PRN PO FEVER Last administered on 02/03at 06:31; Start 02/02/19 at 10:45; Stop 02/03/19 at 09:34; Status DC Albuterol/ Ipratropium (Duoneb) 3 ml RTQID NEB Last administered on 02/02/19at 19:32; Start 02/02/19 at 12:00; Stop 02/03/19 at 09:32; Status DC Sodium Chloride 500 ml @ 1,000 mls/hr PRN Q30MIN PRN IV SEE COMMENTS Last administered on 02/02/19at 13:07; Start 02/02/19 at 10:45 Vancomycin HCl (Vanco Per Pharmacy) 1 each PRN DAILY PRN MC SEE COMMENTS Last administered on 02/05/19at 03:05; Start 02/02/19 at 10:45 Piperacillin Sod/ Tazobactam Sod 4.5 gm/Sodium Chloride 100 ml @ 200 mls/hr Q6HRS IV ; Start 02/02/19 at 12:00; Status UNV Dobutamine HCl/ Dextrose 250 ml @ 0 mls/hr CONT PRN IV SEE I/O RECORD; Start at 10:45; Status Cancel Vancomycin HCl 2 gm/Sodium Chloride 500 ml @ 250 mls/hr 1X ONCE IV Last administered on 02/02/19at 11:49; Start 02/02/19 at 11:15; Stop 02/02/19 at 13:14 ; Status DC Sodium Chloride 1,000 ml @ 1,650 mls/hr Q37M IV Last administered on at 11:50; Start 02/02/19 at 11:00; Stop 02/02/19 at 12:00; Status DC Cefepime HCl (Maxipime) 2 gm Q8HRS IVP ; Start 02/02/19 at 14:00; Status UNV Piperacillin Sod/ Tazobactam Sod 4.5 gm/Sodium Chloride 100 ml @ 200 mls/hr Q6HRS IV Last administered on 02/05/19at 05:39; Start 02/02/19 at 11:15 Vancomycin HCl 2 gm/Sodium Chloride 500 ml @ 250 mls/hr Q12H IV Last administered on 02/03/19at 13:05; Start 02/03/19 at 00:00; Stop 02/03/19 at 23:46 ; Status DC Vancomycin HCl (Vancomycin Trough Level) 1 each 1X ONCE MC Last administered on 02/03/19at 23:30; Start 02/03/19 at 23:30; Stop 02/03/19 at 23:31; Status DC Nystatin (Nystop) 1 rosa BID TP Last administered on 02/05/19at 09:07; Start at 21:00 Insulin Human Lispro (HumaLOG) 0-5 UNITS TIDWMEALS SQ ; Start 02/02/19 at 17:30 ; Stop 02/03/19 at 09:17; Status DC Dextrose (Dextrose 50%-Water Syringe) 12.5 gm PRN Q15MIN PRN IV SEE COMMENTS; Start 02/02/19 at 17:00 Ondansetron HCl (Zofran) 4 mg PRN Q6HRS PRN IV NAUSEA/VOMITING; Start 02/03/19 at 09:30 Albuterol/ Ipratropium (Duoneb) 3 ml RTQID NEB Last administered on 02/05/19at 07:10; Start 02/03/19 at 12:00 Calcium Carbonate/ Glycine (Tums) 500 mg PRN AFTMEALHC PRN PO INDIGESTION; Start 02/03/19 at 09:15 Guaifenesin (Robitussin Dm) 10 ml PRN Q6HRS PRN PO COUGH; Start 02/03/19 at 09: 15 Throat Lozenges (Cepacol Sore Throat Lozenge) 1 melvin PRN Q2HRS PRN PO SORE THROAT; Start 02/03/19 at 09:15 Diphenhydramine HCl (Benadryl) 25 mg PRN QHS PRN PO INSOMNIA; Start 02/03/19 at 09:15 Acetaminophen (Tylenol) 500 mg PRN Q6HRS PRN PO HEADACHE / TEMP Last administered on 02/03/19 17:20; Start 02/03/19 at 09:30 Acetaminophen/ Codeine Phosphate (Tylenol #3) 1 tab PRN Q6HRS PRN PO PAIN MILD ; Start 02/03/19 at 09:30 Amlodipine Besylate (Norvasc) 5 mg DAILY PO Last administered on 02/05/19 09: 06; Start 02/03/19 at 10:00 Baclofen (Lioresal) 10 mg TID PO Last administered on 02/05/19 09:05; Start at 10:00 Budesonide (Pulmicort) 0.5 mg BID NEB Last administered on 02/05/19 07:10; Start 02/03/19 at 21:00 Vitamin D (Vitamin D3) 5,000 unit WEEKLY PO Last administered on 02/03/19 11: 37; Start 02/03/19 at 10:00 Divalproex Sodium (Depakote Er) 500 mg DAILY PO Last administered on 02/05/19 09:04; Start 02/03/19 at 10:00 Divalproex Sodium (Depakote Er) 1,000 mg QHS PO Last administered on 02/04/19 20:49; Start 02/03/19 at 21:00 Docusate Sodium (Colace) 100 mg BID PO Last administered on 02/04/19 20:48; Start 02/03/19 at 10:00 Furosemide (Lasix) 20 mg DAILY PO ; Start 02/03/19 at 10:00; Stop 02/03/19 at 11 :40; Status DC Levothyroxine Sodium (Synthroid) 175 mcg DAILY07 PO Last administered on 05:39; Start 02/03/19 at 10:00 Neomycin/ Polymyxin/ Bacitracin (Triple Antibiotic Ointment) 1 pkt HS TP ; Start 02/03/19 at 21:00 Pregabalin (Lyrica) 75 mg TID PO Last administered on 02/04/19 20:48; Start at 10:00 Tramadol HCl (Ultram) 75 mg PRN TID PRN PO PAIN MODERATE Last administered on 09:03; Start 02/03/19 at 09:30 Trazodone HCl (Desyrel) 50 mg QHS PO Last administered on 02/04/19 20:48; Start 02/03/19 at 21:00 Triamcinolone Acetonide (Kenalog) 1 rosa BID TP Last administered on 02/05/19 09:06; Start 02/03/19 at 21:00 Acetaminophen (Tylenol) 1,000 mg DAILY PO Last administered on 02/05/19 09:05 ; Start 02/03/19 at 10:30 Celecoxib (CeleBREX) 200 mg DAILY PO ; Start 02/03/19 at 10:30; Stop 02/03/19 at 11:40; Status DC Citalopram Hydrobromide (CeleXA) 40 mg DAILY PO Last administered on 02/05/19 09:05; Start 02/03/19 at 10:30 Artificial Tears (Artificial Tears) 1 drop PRN Q15MIN PRN OU DRY EYE Last administered on 02/05/19 09:07; Start 02/03/19 at 10:00 Hydroxyzine Pamoate (Vistaril) 25 mg BID PO Last administered on 02/05/19 09: 05; Start 02/03/19 at 10:00 Non-Formulary Medication (Lifitegrast (Xiidra)) 1 each BID OP ; Start 02/03/19 at 21:00; Status UNV Cetirizine HCl (ZyrTEC) 10 mg DAILY PO Last administered on 02/04/19 09:58; Start 02/03/19 at 10:00 Meclizine HCl (Antivert) 25 mg PRN TID PRN PO DIZZINESS; Start 02/03/19 at 10: 00 Multi-Ingredient Ointment (Analgesic [place]) 1 rosa PRN QID PRN TP MUSCLE PAIN; Start 02/03/19 at 10:00 Oxybutynin Chloride (Ditropan) 5 mg [id number] PO Last administered on 02/05/19 09 :06; Start 02/03/19 at 14:00 Pantoprazole Sodium (Protonix) 40 mg DAILYAC PO Last administered on 02/05/19 05:39; Start 02/03/19 at 10:00 Pilocarpine HCl (Salagen) 10 mg TID PO Last administered on 02/04/19 20:49; Start 02/03/19 at 10:30 Polyethylene Glycol (miraLAX PACKET) 17 gm PRN DAILY PRN PO CONSTIPATION; Start 02/03/19 at 09:00 Potassium Chloride (Klor-Con) 20 meq DAILY08 PO Last administered on 02/05/19 09:05; Start 02/03/19 at 10:30 Risperidone (RisperDAL) 1 mg QHS PO Last administered on 02/04/19 20:48; Start 02/03/19 at 21:00 Rivaroxaban (Xarelto) 20 mg DAILY PO Last administered on 02/05/19 09:04; Start 02/03/19 at 10:00 Non-Formulary Medication ([calcium alginate] ) 1 ea HS TP ; Start 02/03/19 at 21 :00; Status UNV Furosemide (Lasix) 40 mg 1X ONCE IVP Last administered on 02/03/19 12:13; Start 02/03/19 at 11:45; Stop 02/03/19 at 11:46; Status DC Furosemide (Lasix) 40 mg [id number] IVP Last administered on 02/05/19 09:06; Start 02/03/19 at 18:00 Ascorbic Acid (Vitamin C) 500 mg DAILY PO Last administered on 02/05/19 09:04 ; Start 02/03/19 at 12:00 Zinc Acetate/ Diphenhydramine (Benadryl Topical) 1 rosa TID PRN TP itchy legs; Start 02/03/19 at 11:45 Linezolid (Zyvox) 600 mg BID PO Last administered on 02/05/19 09:04; Start at 21:00 Info (Anti-Coagulation Monitoring By Pharmacy) 1 each PRN DAILY PRN MC SEE COMMENTS Last administered on 02/03/19 17:52; Start 02/03/19 at 13:00 Lactobacillus Rhamnosus (Culturelle) 1 cap BID PO Last administered on 09:05; Start 02/03/19 at 21:00 Vancomycin HCl 2 gm/Sodium Chloride 500 ml @ 250 mls/hr Q8H IV Last administered on 02/05/19 09:02; Start 02/04/19 at 00:00 Vancomycin HCl (Vancomycin Trough Level) 1 each 1X ONCE MC Last administered on 3/28/19at 23:30; Start 02/04/19 at 23:30; Stop 02/04/19 at 23:31; Status DC Potassium Chloride (Klor-Con) 20 meq STK-MED ONCE PO ; Start 02/03/19 at 09:00; Stop 02/05/19 at 10:15; Status DC Potassium Chloride (Klor-Con) 20 meq STK-MED ONCE PO ; Start 02/04/19 at 09:00; Stop 02/05/19 at 10:16; Status DC Potassium Chloride (Klor-Con) 20 meq STK-MED ONCE PO ; Start 02/05/19 at 09:00; Stop 02/05/19 at 10:16; Status DC Active Scripts Active Reported Xiidra (Lifitegrast) 1 Each Droperette 1 Each OP BID Vitamin D (Cholecalciferol (Vitamin D3)) 5,000 Unit Capsule 5,000 Unit PO WEEKLY Tylenol Extra Strength (Acetaminophen) 500 Mg Tablet 2 Mg PO DAILY Triple Antibiotic Ointment (Neomy Sulf/Bacitrac Zn/Poly) 1 Each Oint.pack 1 Each TP HS Triamcinolone Acetonide 0.1% Oint (Triamcinolone Acetonide) 15 Gm Oint...g. 1 Rosa TP BID MIX WITH EUCERIN DIRECTED BY PHYSICIAN Trazodone Hcl 50 Mg Tablet 1 Tab PO QHS Tramadol Hcl 50 Mg Tablet 75 Mg PO TID PRN Xarelto (Rivaroxaban) 20 Mg Tablet 20 Mg PO DAILY Risperdal (Risperidone) 1 Mg Tablet 1 Mg PO QHS Proventil Hfa Inhaler (Albuterol Sulfate) 6.7 Gm Hfa.aer.ad 1 Puff IH PRN Q4HRS PRN Protonix (Pantoprazole Sodium) 20 Mg Tablet.dr 40 Mg PO DAILY Potassium Chloride 20 Meq Tablet.er 20 Meq PO DAILY Miralax (Polyethylene Glycol 3350) 17 Gm Powd.pack 1 Packet PO DAILY PRN Pilocarpine Hcl 5 Mg Tablet 10 Mg PO TID Oxybutynin Chloride Er (Oxybutynin Chloride) 15 Mg Tab.er.24 1 Tab PO DAILY Meclizine Hcl 25 Mg Tablet 1 Tab PO TID Lyrica (Pregabalin) 75 Mg Capsule 1 Cap PO TID Loratadine 10 Mg Tablet 1 Tab PO DAILY Levothyroxine Sodium 175 Mcg Tablet 1 Tab PO DAILY Lasix (Furosemide) 20 Mg Tablet 1 Tab PO DAILY Hydroxyzine Hcl 25 Mg Tablet 1 Tab PO BID Divalproex Sodium Er (Divalproex Sodium) 500 Mg Tab.er.24h 2 Tab PO QHS Divalproex Sodium Er (Divalproex Sodium) 500 Mg Tab.er.24h 1 Tab PO DAILY Colace (Docusate Sodium) 100 Mg Capsule 1 Cap PO BID Celexa (Citalopram Hydrobromide) 40 Mg Tablet 1 Tab PO DAILY Celebrex (Celecoxib) 200 Mg Capsule 1 Cap PO DAILY [calcium alginate] 1 Ea TP HS Budesonide 0.5 Mg/2 Ml Ampul.neb 1 Vial NEB BID Biofreeze (Menthol) 118 Ml Gel..ml. 118 Ml TP TID Baclofen 10 Mg Tablet 1 Tab PO TID Artificial Tears Eye Drops (Dextran 70/Hypromellose) 15 Ml Drops 1 Drop EACHEYE PRN PRN Amlodipine Besylate 5 Mg Tablet 5 Mg PO DAILY Albuterol Sulfate Neb Soln (Albuterol Sulfate) 2.5 Mg/3 Ml Vial.neb 1 Vial NEB PRN Q4HRS Vitals/I & O Vital Sign - Last 24 Hours 02/04/19 02/04/19 02/04/19 02/04/19 14:49 16:12 19:05 19:55 Temp 98.9 98.3 98.9 98.3 Pulse 71 64 Resp 18 18 B/P (MAP) 145/78 (100) 130/68 (88) Pulse Ox 98 96 O2 Delivery Nasal Cannula Nasal Cannula Nasal Cannula Nasal Cannula O2 Flow Rate 4.0 4.0 4.0 4.0 02/04/19 02/04/19 02/04/19 02/04/19 20:40 20:42 22:46 23:11 Temp 98.3 98.3 Pulse 63 Resp 16 B/P (MAP) 136/67 (90) Pulse Ox 95 95 94 O2 Delivery Nasal Cannula Nasal Cannula BiPAP/CPAP Nasal Cannula O2 Flow Rate 4.0 4.0 4.0 02/05/19 02/05/19 02/05/19 02/05/19 03:20 07:00 07:10 09:03 Temp 97.7 96.4 97.7 96.4 Pulse 57 61 Resp 20 19 17 B/P (MAP) 161/79 (106) 176/74 (108) Pulse Ox 98 100 96 O2 Delivery BiPAP/CPAP Nasal Cannula Nasal Cannula Nasal Cannula O2 Flow Rate 4.0 4.0 4.0 02/05/19 09:06 Pulse 57 B/P (MAP) 161/79 Intake and Output 02/04/19 02/04/19 02/05/19 15:00 23:00 07:00 Intake Total 480 ml 340 ml 2150 ml Output Total 1000 ml 1100 ml Balance 480 ml -660 ml 1050 ml VADIM PAUL MD Feb 05, 2019 11:17
[2019-02-05] MEDS: DOCUSATE SODIUM 100 MG CAPSULE. PO SCH ×2 (11:21→21:39)
[2019-02-05] MEDS: CETIRIZINE HCL 10 MG TABLET. PO SCH (11:22)
[2019-02-05] MEDS: PILOCARPINE 5 MG TABLET. PO SCH ×3 (11:22→21:39)
--- NOTE | 2019-02-05 11:31 | PDOC ---
Infectious Disease Note Subjective: Subjective Pt says feels little better still has cough cont to have swelling and pain in the lle no n/c/d/abdo pain ROS: ROS Negative except for above. Vital Signs: Vital Signs Vital Signs Date Time Temp Pulse Resp B/P (MAP) Pulse Ox O2 Delivery O2 Flow Rate FiO2 02/05/19 09:06 57 161/79 02/05/19 09:03 17 Nasal Cannula 4.0 02/05/19 07:10 96 02/05/19 07:00 96.4 96.4 Physical Exam: PHYSICAL EXAM GENERAL: Alert, oriented female, eating lunch, in no acute distress, cooperative. HEENT: Normocephalic, atraumatic, anicteric. NECK: Supple. LUNGS: dec bs at bases, No wheezing. HEART: S1, S2. No gallops or murmurs. ABDOMEN: Soft, nontender, nondistended. EXTREMITIES: Left lower extremity swelling, blister over lower leg with no fluid collection, no purulence. Erythema going up to the left thigh with induration. NEUROLOGIC: Alert and oriented, grossly nonfocal. Medications: Inpatient Meds: Current Medications Medications (Trade) Dose Ordered Sig/Holden Start Time Stop Time Status Last Admin Dose Admin Acetaminophen (Tylenol) 1,000 mg DAILY 02/03/19 10:30 02/05/19 09:05 1,000 MG Acetaminophen/ Codeine Phosphate (Tylenol #3) 1 tab PRN Q6HRS PRN 02/03/19 09:30 Albuterol/ Ipratropium (Duoneb) 3 ml RTQID 02/03/19 12:00 02/05/19 07:10 3 ML Amlodipine Besylate (Norvasc) 5 mg DAILY 02/03/19 10:00 02/05/19 09:06 5 MG Artificial Tears (Artificial Tears) 1 drop PRN Q15MIN PRN 02/03/19 10:00 02/05/19 09:07 1 DROP Ascorbic Acid (Vitamin C) 500 mg DAILY 02/03/19 12:00 02/05/19 09:04 500 MG Baclofen (Lioresal) 10 mg TID 02/03/19 10:00 02/05/19 09:05 10 MG Budesonide (Pulmicort) 0.5 mg BID 02/03/19 21:00 02/05/19 07:10 0.5 MG Calcium Carbonate/ Glycine (Tums) 500 mg PRN AFTMEALHC PRN 02/03/19 09:15 Cefepime HCl (Maxipime) 2 gm Q8HRS 02/02/19 14:00 UNV Ceftriaxone Sodium (Rocephin) 1 gm 1X ONCE 02/02/19 09:45 02/02/19 09:46 UNV Celecoxib (CeleBREX) 200 mg DAILY 02/03/19 10:30 02/03/19 11:40 DC Cetirizine HCl (ZyrTEC) 10 mg DAILY 02/03/19 10:00 02/05/19 11:22 10 MG Citalopram Hydrobromide (CeleXA) 40 mg DAILY 02/03/19 10:30 02/05/19 09:05 40 MG Dextrose (Dextrose 50%-Water Syringe) 12.5 gm PRN Q15MIN PRN 02/02/19 17:00 Diphenhydramine HCl (Benadryl) 25 mg PRN QHS PRN 02/03/19 09:15 Divalproex Sodium (Depakote Er) 1,000 mg QHS 02/03/19 21:00 02/04/19 20:49 1,000 MG Dobutamine HCl/ Dextrose 250 ml @ 0 mls/hr CONT PRN 02/02/19 10:45 Cancel Docusate Sodium (Colace) 100 mg BID 02/03/19 10:00 02/05/19 11:21 100 MG Furosemide (Lasix) 40 mg [id number] 02/03/19 18:00 02/05/19 09:06 40 MG Guaifenesin (Robitussin Dm) 10 ml PRN Q6HRS PRN 02/03/19 09:15 Hydroxyzine Pamoate (Vistaril) 25 mg BID 02/03/19 10:00 02/05/19 09:05 25 MG Info (Anti-Coagulation Monitoring By Pharmacy) 1 each PRN DAILY PRN 02/03/19 13:00 02/03/19 17:52 1 EACH Insulin Human Lispro (HumaLOG) 0-5 UNITS TIDWMEALS 02/02/19 17:30 02/03/19 09:17 DC Lactobacillus Rhamnosus (Culturelle) 1 cap BID 02/03/19 21:00 02/05/19 09:05 1 CAP Levothyroxine Sodium (Synthroid) 175 mcg DAILY07 02/03/19 10:00 02/05/19 05:39 175 MCG Linezolid (Zyvox) 600 mg BID 02/03/19 21:00 02/05/19 09:04 600 MG Meclizine HCl (Antivert) 25 mg PRN TID PRN 02/03/19 10:00 Multi-Ingredient Ointment (Analgesic [place]) 1 kashif PRN QID PRN 02/03/19 10:00 Neomycin/ Polymyxin/ Bacitracin (Triple Antibiotic Ointment) 1 pkt HS 02/03/19 21:00 Non-Formulary Medication (Lifitegrast (Xiidra)) 1 each BID 02/03/19 21:00 UNV Non-Formulary Medication ([calcium alginate] ) 1 ea HS 02/03/19 21:00 UNV Nystatin (Nystop) 1 kashif BID 02/02/19 21:00 02/05/19 09:07 1 KASHIF Ondansetron HCl (Zofran) 4 mg PRN Q6HRS PRN 02/03/19 09:30 Oxybutynin Chloride (Ditropan) 5 mg [id number] 02/03/19 14:00 02/05/19 09:06 5 MG Pantoprazole Sodium (Protonix) 40 mg DAILYAC 02/03/19 10:00 02/05/19 05:39 40 MG Pilocarpine HCl (Salagen) 10 mg TID 02/03/19 10:30 02/05/19 11:22 10 MG Piperacillin Sod/ Tazobactam Sod 3.375 gm/Sodium Chloride 50 ml @ 100 mls/hr 1X ONCE 02/02/19 10:45 02/02/19 10:45 DC Piperacillin Sod/ Tazobactam Sod 4.5 gm/Sodium Chloride 100 ml @ 200 mls/hr Q6HRS 02/02/19 11:15 02/05/19 05:39 200 MLS/HR Polyethylene Glycol (miraLAX PACKET) 17 gm PRN DAILY PRN 02/03/19 09:00 Potassium Chloride (Klor-Con) 20 meq STK-MED ONCE 02/05/19 09:00 02/05/19 10:16 DC Pregabalin (Lyrica) 75 mg TID 02/03/19 10:00 02/05/19 09:00 75 MG Risperidone (RisperDAL) 1 mg QHS 02/03/19 21:00 02/04/19 20:48 1 MG Rivaroxaban (Xarelto) 20 mg DAILY 02/03/19 10:00 02/05/19 09:04 20 MG Sodium Chloride 1,000 ml @ 1,650 mls/hr Q37M 02/02/19 11:00 02/02/19 12:00 DC 02/02/19 11:50 1,650 MLS/HR Throat Lozenges (Cepacol Sore Throat Lozenge) 1 melvin PRN Q2HRS PRN 02/03/19 09:15 Tramadol HCl (Ultram) 75 mg PRN TID PRN 02/03/19 09:30 02/05/19 09:03 75 MG Trazodone HCl (Desyrel) 50 mg QHS 02/03/19 21:00 02/04/19 20:48 50 MG Triamcinolone Acetonide (Kenalog) 1 kashif BID 02/03/19 21:00 02/05/19 09:06 1 KASHIF Vancomycin HCl (Vanco Per Pharmacy) 1 each PRN DAILY PRN 02/02/19 10:45 02/05/19 03:05 1 EACH Vancomycin HCl (Vancomycin Trough Level) 1 each 1X ONCE 02/04/19 23:30 02/04/19 23:31 DC 02/04/19 23:30 1 EACH Vancomycin HCl 2 gm/Sodium Chloride 500 ml @ 250 mls/hr Q8H 02/04/19 00:00 02/05/19 09:02 250 MLS/HR Vitamin D (Vitamin D3) 5,000 unit WEEKLY 02/03/19 10:00 02/03/19 11:37 5,000 UNIT Zinc Acetate/ Diphenhydramine (Benadryl Topical) 1 kashif TID PRN 02/03/19 11:45 Labs: Lab Laboratory Tests Test 02/04/19 16:24 02/04/19 20:35 02/04/19 23:20 02/05/19 07:54 Glucose (Fingerstick) 116 mg/dL (70-99) 141 mg/dL (70-99) 104 mg/dL (70-99) Vancomycin Level Trough 20.4 mcg/mL (10.0-20.0) Vancomycin Last Dose Date Vancomycin Last Dose Time 1600 Objective: Assessment: 1. Sepsis, source likely respiratory and left lower extremity cellulitis. CT LLE no abscess 2. Fever.improving 3. Leukocytosis.improving 4. Lactic acidosis. 5. Urinary tract infection with pyuria. 6. Bilateral pulmonary infiltrate. 7. Mixed hypercapnic respiratory failure. 8. Bandemia. 9. skilled nursing resident. Plan: Plan of Care DC IV vancomycin on 2gm IV q8hr cont Zosyn. DC Zyvox as pt is on Sertaline given for toxin binding start daptomycin add micafungin Elevate left lower extremity. Follow up culture and susceptibility results. Follow up labs in [facility] Johnson MD Feb 05, 2019 11:31
[2019-02-05] MEDS: PIPERACILLIN/TAZOBACTAM 3.375 GM in IV NORMAL SALINE 50ML 50 ML IV SCH ×2 (12:33→18:21)
[2019-02-05] MEDS: MICAFUNGIN 100 MG in IV DEXTROSE 5% 100ML 100 ML IV SCH (14:36)
[2019-02-05 15:00] VITALS: BP 138/72
[2019-02-05] MEDS: DAPTOmycin (GENERIC) IVPB 570 MG in IV NORMAL SALINE 50ML 50 ML IV SCH (16:59)
[2019-02-05 19:30] VITALS: BP_SYST 162; BP_SYST 210; BP_DIAS 100; BP_DIAS 85
[2019-02-05] MEDS: NEOMY/BACITR/POLYMYXIN OINT PACKET. TP SCH (21:39)
[2019-02-05] MEDS: risperiDONE 1 MG TABLET. PO SCH (21:40)
[2019-02-05] MEDS: traZODone 50 MG TABLET. PO SCH (21:40)
[2019-02-05 23:11] VITALS: BP 146/81
[2019-02-06] MEDS: PIPERACILLIN/TAZOBACTAM 3.375 GM in IV NORMAL SALINE 50ML 50 ML IV SCH ×4 (00:45→17:48)
[2019-02-06 03:21] VITALS: BP 160/83
[2019-02-06] MEDS: LEVOTHYROXINE 175 MCG TABLET PO SCH (05:54)
[2019-02-06] MEDS: PANTOPRAZOLE 40 MG TABLET.DR. PO SCH (05:58)
[2019-02-06 07:00] VITALS: BP 158/84
[2019-02-06] MEDS: IPRATRPIUM/ALBUTEROL 0.5/2.5MG 3 ML NEBU. NEB SCH ×4 (08:32→19:34)
[2019-02-06] MEDS: BUDESONIDE 0.5 MG/2 ML NEBU. NEB SCH ×3 (08:32→19:34)
[2019-02-06] MEDS: NYSTATIN TOPICAL POWDER 15GM BOTTLE. TP SCH ×2 (08:48→21:11)
[2019-02-06] MEDS: FUROSEMIDE 40 MG/4 ML VIAL. IVP SCH ×2 (08:48→14:27)
[2019-02-06] MEDS: TRIAMCINOLONE ACETONIDE 0.1% TOPICAL OINTMENT 15GM TUBE. TP SCH ×2 (08:48→21:11)
[2019-02-06] MEDS: hydrOXYzine PAMOATE 25 MG CAPSULE PO SCH ×2 (08:49→21:11)
[2019-02-06] MEDS: BACLOFEN 10 MG TABLET. PO SCH ×3 (08:49→21:07)
[2019-02-06] MEDS: RIVAROXABAN 10 MG TABLET. PO SCH (08:49)
[2019-02-06] MEDS: CETIRIZINE HCL 10 MG TABLET. PO SCH (08:49)
[2019-02-06] MEDS: DIVALPROEX EXTENDED RELEASE 500 MG TAB.ER.24H. PO SCH ×2 (08:49→21:09)
[2019-02-06] MEDS: ASCORBIC ACID 500 MG TABLET PO SCH (08:49)
[2019-02-06] MEDS: ACETAMINOPHEN 500 MG TABLET PO SCH (08:50)
[2019-02-06] MEDS: POTASSIUM CHLORIDE 20 MEQ TABLET.ER. PO SCH (08:50)
[2019-02-06] MEDS: PREGABALIN 75 MG CAPSULE PO SCH ×3 (08:50→21:10)
[2019-02-06] MEDS: OXYBUTYNIN CHLORIDE 5 MG TABLET PO SCH ×3 (08:50→21:10)
[2019-02-06] MEDS: DOCUSATE SODIUM 100 MG CAPSULE. PO SCH ×2 (08:51→21:09)
[2019-02-06] MEDS: amLODIPine BESYLATE 5 MG TABLET PO SCH (08:51)
[2019-02-06] MEDS: CITALOPRAM 20 MG TABLET. PO SCH (08:51)
[2019-02-06] MEDS: LACTOBACILLUS RHAMNOSUS GG 1 CAPSULE. PO SCH ×2 (08:51→21:07)
[2019-02-06] MEDS: PILOCARPINE 5 MG TABLET. PO SCH ×3 (09:56→21:10)
--- NOTE | 2019-02-06 10:24 | PDOC ---
PROGRESS NOTES Chief Complaint Chief Complaint BIlateral infiltrates-pneumonia SNU resident Bedbound because of acute on chronic lymphedema - neg DVT Sepsis present on admission, elevated lactate 3.7, WBC 30 UTI in an SNU resident-, complicated UTI Mixed hypercapnic hypoxic respiratory failure - BIPAP AJ on CPAP at SNU Flu negative Fevers Obesity, BMI 50 DNR History of Present Illness History of Present Illness Has no complaints NO signif events overnight Urine Culture negative blood culture negative ESR 47 with no fevers and no white count On Vanco and Zosyn per ID Sister is the DPOA DNR SNU resident Bedbound because of acute and chronic lymphedema-claims she is on Lasix in SNU once a day Flu negative Pulmonary has ordered a chest CT-atelectasis vs infiltrates bases WBC down to 10 from 30 on admission She has an external wick ABG reviewed, on admit: pH 7.4, CO2 48, oh to 53, BiPAP at bedside - has cpap at SNU CAnt ambulate,. legs still swollen Plan COnt lasix BID Check BMP now, might be able to go down on the Lasix E[place]tes while on lasix Continue IV antibiotics per ID Patient on Xarelto continue this I did recommend to ambulate with PT DNR BAck to SNU on dc when shifted to PO ab\x STill following BCs dw RN at bedside Vitals Vitals Vital Signs Date Time Temp Pulse Resp B/P (MAP) Pulse Ox O2 Delivery O2 Flow Rate FiO2 02/06/19 08:51 56 158/84 02/06/19 08:36 98 Nasal Cannula 6.0 02/06/19 07:00 98.3 18 98.3 Physical Exam Physical Exam GENERAL: Alert, oriented female, eating lunch, in no acute distress, cooperative. HEENT: Normocephalic, atraumatic, anicteric. NECK: Supple. LUNGS: dec bs at bases, No wheezing. HEART: S1, S2. No gallops or murmurs. ABDOMEN: Soft, nontender, nondistended. EXTREMITIES: Left lower extremity swelling, blister over lower leg with no fluid collection, no purulence. Erythema going up to the left thigh with induration. NEUROLOGIC: Alert and oriented, grossly nonfocal. General: Alert, Oriented X3, Cooperative, No acute distress Heart: Regular rate, Normal S1, Normal S2 Lungs: Wheezing Abdomen: Normal bowel sounds, Soft, Other (obese, nontender, normoactive bowel sounds) Extremities: Other (S3 pitting edema, some excoriations of foot, red warm tender juice E left leg wounds-wound care consulted, lateral foot drop) Skin: Other (asper above) Labs LABS Laboratory Tests Test 02/05/19 11:41 02/05/19 14:33 02/05/19 17:10 02/05/19 21:01 Glucose (Fingerstick) 125 mg/dL (70-99) 101 mg/dL (70-99) 117 mg/dL (70-99) 129 mg/dL (70-99) Test 02/06/19 07:08 Glucose (Fingerstick) 109 mg/dL (70-99) Review of Systems Review of Systems A 14 point ROS was completed with the following noted as positive: Other systems reviewed and negative. \CONSTITUTIONAL: No fever or chills EYES: No recent changes SKIN: No rash or itching CARDIOVASCULAR: No chest pain, syncope, palpitations, or edema RESPIRATORY: No SOB or cough GASTROINTESTINAL: No nausea, vomiting or abdominal pain NEUROLOGICAL: No headaches or weakness ENDOCRINE: No cold or heat intolerance GENITOURINARY: No urgency or frequency of urination MUSCULOSKELETAL: No back pain or joint pain LYMPHATICS: No enlarged lymph nodes PSYCHIATRIC: No anxiety or depression Assessment and Plan Assessmemt and Plan Problems Medical Problems: (1) Severe sepsis Status: Acute Comment Review of Relevant I have reviewed the following items katie (where applicable) has been applied. Labs Laboratory Tests Test 02/04/19 11:26 02/04/19 16:24 02/04/19 20:35 02/04/19 23:20 Glucose (Fingerstick) 138 mg/dL (70-99) 116 mg/dL (70-99) 141 mg/dL (70-99) Vancomycin Level Trough 20.4 mcg/mL (10.0-20.0) Vancomycin Last Dose Date [id number] Vancomycin Last Dose Time 1600 Test 02/05/19 07:54 02/05/19 11:41 02/05/19 14:33 02/05/19 17:10 Glucose (Fingerstick) 104 mg/dL (70-99) 125 mg/dL (70-99) 101 mg/dL (70-99) 117 mg/dL (70-99) Test 02/05/19 21:01 02/06/19 07:08 Glucose (Fingerstick) 129 mg/dL (70-99) 109 mg/dL (70-99) Laboratory Tests Test 02/05/19 11:41 02/05/19 14:33 02/05/19 17:10 02/05/19 21:01 Glucose (Fingerstick) 125 mg/dL (70-99) 101 mg/dL (70-99) 117 mg/dL (70-99) 129 mg/dL (70-99) Test 02/06/19 07:08 Glucose (Fingerstick) 109 mg/dL (70-99) Microbiology 02/02/19 Blood Culture - Preliminary, Resulted NO GROWTH AFTER 4 DAYS 02/02/19 Urine Culture - Final, Complete 02/02/19 Urine Culture Result 1 (RITA) - Final, Complete Medications Current Medications Ceftriaxone Sodium (Rocephin) 1 gm 1X ONCE IVP ; Start 02/02/19 at 09:45; Stop 02/02/19 at 09:46; Status UNV Sodium Chloride 1,000 ml @ 1,000 mls/hr 1X ONCE IV Last administered on at 11:46; Start 02/02/19 at 10:45; Stop 02/02/19 at 11:44; Status DC Piperacillin Sod/ Tazobactam Sod 3.375 gm/Sodium Chloride 50 ml @ 100 mls/hr 1X ONCE IV ; Start 02/02/19 at 10:45; Stop 02/02/19 at 10:45; Status DC Vancomycin HCl 250 ml @ 250 mls/hr 1X ONCE IV ; Start 02/02/19 at 10:45; Stop 02/02/19 at 11:44; Status UNV Ondansetron HCl (Zofran) 4 mg PRN Q8HRS PRN IV NAUSEA/VOMITING; Start 02/02/19 at 10:45; Stop 02/03/19 at 09:17; Status DC Sodium Chloride 1,000 ml @ 150 mls/hr Q6H40M IV Last administered on at 08:01; Start 02/02/19 at 11:00; Stop 02/03/19 at 10:59; Status DC Acetaminophen (Tylenol) 650 mg PRN Q4HRS PRN PO FEVER Last administered on 02/03at 06:31; Start 02/02/19 at 10:45; Stop 02/03/19 at 09:34; Status DC Albuterol/ Ipratropium (Duoneb) 3 ml RTQID NEB Last administered on 02/02/19at 19:32; Start 02/02/19 at 12:00; Stop 02/03/19 at 09:32; Status DC Sodium Chloride 500 ml @ 1,000 mls/hr PRN Q30MIN PRN IV SEE COMMENTS Last administered on 02/02/19at 13:07; Start 02/02/19 at 10:45 Vancomycin HCl (Vanco Per Pharmacy) 1 each PRN DAILY PRN MC SEE COMMENTS Last administered on 02/05/19at 03:05; Start 02/02/19 at 10:45; Stop 02/05/19 at 16:14 ; Status DC Piperacillin Sod/ Tazobactam Sod 4.5 gm/Sodium Chloride 100 ml @ 200 mls/hr Q6HRS IV ; Start 02/02/19 at 12:00; Status UNV Dobutamine HCl/ Dextrose 250 ml @ 0 mls/hr CONT PRN IV SEE I/O RECORD; Start at 10:45; Status Cancel Vancomycin HCl 2 gm/Sodium Chloride 500 ml @ 250 mls/hr 1X ONCE IV Last administered on 02/02/19at 11:49; Start 02/02/19 at 11:15; Stop 02/02/19 at 13:14 ; Status DC Sodium Chloride 1,000 ml @ 1,650 mls/hr Q37M IV Last administered on at 11:50; Start 02/02/19 at 11:00; Stop 02/02/19 at 12:00; Status DC Cefepime HCl (Maxipime) 2 gm Q8HRS IVP ; Start 02/02/19 at 14:00; Status UNV Piperacillin Sod/ Tazobactam Sod 4.5 gm/Sodium Chloride 100 ml @ 200 mls/hr Q6HRS IV Last administered on 02/05/19at 05:39; Start 02/02/19 at 11:15; Stop at 11:30; Status DC Vancomycin HCl 2 gm/Sodium Chloride 500 ml @ 250 mls/hr Q12H IV Last administered on 02/03/19at 13:05; Start 02/03/19 at 00:00; Stop 02/03/19 at 23:46 ; Status DC Vancomycin HCl (Vancomycin Trough Level) 1 each 1X ONCE MC Last administered on 02/03/19at 23:30; Start 02/03/19 at 23:30; Stop 02/03/19 at 23:31; Status DC Nystatin (Nystop) 1 rosa BID TP Last administered on 02/06/19at 08:48; Start at 21:00 Insulin Human Lispro (HumaLOG) 0-5 UNITS TIDWMEALS SQ ; Start 02/02/19 at 17:30 ; Stop 02/03/19 at 09:17; Status DC Dextrose (Dextrose 50%-Water Syringe) 12.5 gm PRN Q15MIN PRN IV SEE COMMENTS; Start 02/02/19 at 17:00 Ondansetron HCl (Zofran) 4 mg PRN Q6HRS PRN IV NAUSEA/VOMITING; Start 02/03/19 at 09:30 Albuterol/ Ipratropium (Duoneb) 3 ml RTQID NEB Last administered on 02/06/19at 08:32; Start 02/03/19 at 12:00 Calcium Carbonate/ Glycine (Tums) 500 mg PRN AFTMEALHC PRN PO INDIGESTION; Start 02/03/19 at 09:15 Guaifenesin (Robitussin Dm) 10 ml PRN Q6HRS PRN PO COUGH; Start 02/03/19 at 09: 15 Throat Lozenges (Cepacol Sore Throat Lozenge) 1 melvin PRN Q2HRS PRN PO SORE THROAT; Start 02/03/19 at 09:15 Diphenhydramine HCl (Benadryl) 25 mg PRN QHS PRN PO INSOMNIA; Start 02/03/19 at 09:15 Acetaminophen (Tylenol) 500 mg PRN Q6HRS PRN PO HEADACHE / TEMP Last administered on 02/03/19at 17:20; Start 02/03/19 at 09:30 Acetaminophen/ Codeine Phosphate (Tylenol #3) 1 tab PRN Q6HRS PRN PO PAIN MILD ; Start 02/03/19 at 09:30 Amlodipine Besylate (Norvasc) 5 mg DAILY PO Last administered on 02/06/19at 08: 51; Start 02/03/19 at 10:00 Baclofen (Lioresal) 10 mg TID PO Last administered on 02/06/19 08:49; Start at 10:00 Budesonide (Pulmicort) 0.5 mg BID NEB Last administered on 02/06/19 08:35; Start 02/03/19 at 21:00 Vitamin D (Vitamin D3) 5,000 unit WEEKLY PO Last administered on 02/03/19 11: 37; Start 02/03/19 at 10:00 Divalproex Sodium (Depakote Er) 500 mg DAILY PO Last administered on 02/06/19 08:49; Start 02/03/19 at 10:00 Divalproex Sodium (Depakote Er) 1,000 mg QHS PO Last administered on 02/05/19 21:39; Start 02/03/19 at 21:00 Docusate Sodium (Colace) 100 mg BID PO Last administered on 02/06/19 08:51; Start 02/03/19 at 10:00 Furosemide (Lasix) 20 mg DAILY PO ; Start 02/03/19 at 10:00; Stop 02/03/19 at 11 :40; Status DC Levothyroxine Sodium (Synthroid) 175 mcg DAILY07 PO Last administered on 05:54; Start 02/03/19 at 10:00 Neomycin/ Polymyxin/ Bacitracin (Triple Antibiotic Ointment) 1 pkt HS TP Last administered on 02/05/19 21:39; Start 02/03/19 at 21:00 Pregabalin (Lyrica) 75 mg TID PO Last administered on 02/06/19 08:50; Start at 10:00 Tramadol HCl (Ultram) 75 mg PRN TID PRN PO PAIN MODERATE Last administered on 18:40; Start 02/03/19 at 09:30 Trazodone HCl (Desyrel) 50 mg QHS PO Last administered on 02/05/19 21:40; Start 02/03/19 at 21:00 Triamcinolone Acetonide (Kenalog) 1 rosa BID TP Last administered on 02/06/19 08:48; Start 02/03/19 at 21:00 Acetaminophen (Tylenol) 1,000 mg DAILY PO Last administered on 02/06/19 08:50 ; Start 02/03/19 at 10:30 Celecoxib (CeleBREX) 200 mg DAILY PO ; Start 02/03/19 at 10:30; Stop 02/03/19 at 11:40; Status DC Citalopram Hydrobromide (CeleXA) 40 mg DAILY PO Last administered on 02/06/19 08:51; Start 02/03/19 at 10:30 Artificial Tears (Artificial Tears) 1 drop PRN Q15MIN PRN OU DRY EYE Last administered on 02/05/19 09:07; Start 02/03/19 at 10:00 Hydroxyzine Pamoate (Vistaril) 25 mg BID PO Last administered on 02/06/19 08: 49; Start 02/03/19 at 10:00 Non-Formulary Medication (Lifitegrast (Xiidra)) 1 each BID OP ; Start 02/03/19 at 21:00; Status UNV Cetirizine HCl (ZyrTEC) 10 mg DAILY PO Last administered on 02/06/19 08:49; Start 02/03/19 at 10:00 Meclizine HCl (Antivert) 25 mg PRN TID PRN PO DIZZINESS; Start 02/03/19 at 10: 00 Multi-Ingredient Ointment (Analgesic [place]) 1 rosa PRN QID PRN TP MUSCLE PAIN; Start 02/03/19 at 10:00 Oxybutynin Chloride (Ditropan) 5 mg [id number] PO Last administered on 02/06/19 08 :50; Start 02/03/19 at 14:00 Pantoprazole Sodium (Protonix) 40 mg DAILYAC PO Last administered on 02/06/19 05:58; Start 02/03/19 at 10:00 Pilocarpine HCl (Salagen) 10 mg TID PO Last administered on 02/06/19 09:56; Start 02/03/19 at 10:30 Polyethylene Glycol (miraLAX PACKET) 17 gm PRN DAILY PRN PO CONSTIPATION; Start 02/03/19 at 09:00 Potassium Chloride (Klor-Con) 20 meq DAILY08 PO Last administered on 02/06/19 08:50; Start 02/03/19 at 10:30 Risperidone (RisperDAL) 1 mg QHS PO Last administered on 02/05/19 21:40; Start 02/03/19 at 21:00 Rivaroxaban (Xarelto) 20 mg DAILY PO Last administered on 02/06/19 08:49; Start 02/03/19 at 10:00 Non-Formulary Medication ([calcium alginate] ) 1 ea HS TP ; Start 02/03/19 at 21 :00; Status UNV Furosemide (Lasix) 40 mg 1X ONCE IVP Last administered on 02/03/19 12:13; Start 02/03/19 at 11:45; Stop 02/03/19 at 11:46; Status DC Furosemide (Lasix) 40 mg BID92 IVP Last administered on 02/06/19 08:48; Start 02/03/19 at 18:00 Ascorbic Acid (Vitamin C) 500 mg DAILY PO Last administered on 02/06/19 08:49 ; Start 02/03/19 at 12:00 Zinc Acetate/ Diphenhydramine (Benadryl Topical) 1 rosa TID PRN TP itchy legs; Start 02/03/19 at 11:45 Linezolid (Zyvox) 600 mg BID PO Last administered on 02/05/19 09:04; Start at 21:00; Stop 02/05/19 at 11:30; Status DC Info (Anti-Coagulation Monitoring By Pharmacy) 1 each PRN DAILY PRN MC SEE COMMENTS Last administered on 02/03/19 17:52; Start 02/03/19 at 13:00 Lactobacillus Rhamnosus (Culturelle) 1 cap BID PO Last administered on 08:51; Start 02/03/19 at 21:00 Vancomycin HCl 2 gm/Sodium Chloride 500 ml @ 250 mls/hr Q8H IV Last administered on 02/05/19 09:02; Start 02/04/19 at 00:00; Stop 02/05/19 at 11:30 ; Status DC Vancomycin HCl (Vancomycin Trough Level) 1 each 1X ONCE MC Last administered on 02/04/19 23:30; Start 02/04/19 at 23:30; Stop 02/04/19 at 23:31; Status DC Potassium Chloride (Klor-Con) 20 meq STK-MED ONCE PO ; Start 02/03/19 at 09:00; Stop 02/05/19 at 10:15; Status DC Potassium Chloride (Klor-Con) 20 meq STK-MED ONCE PO ; Start 02/04/19 at 09:00; Stop 02/05/19 at 10:16; Status DC Potassium Chloride (Klor-Con) 20 meq STK-MED ONCE PO ; Start 02/05/19 at 09:00; Stop 02/05/19 at 10:16; Status DC Daptomycin 570 mg/ Sodium Chloride 50 ml @ 100 mls/hr Q24H IV Last administered on 02/05/19at 16:59; Start 02/05/19 at 12:00 Piperacillin Sod/ Tazobactam Sod 3.375 gm/Sodium Chloride 50 ml @ 100 mls/hr Q6HRS IV Last administered on 02/06/19at 05:53; Start 02/05/19 at 12:00 Micafungin Sodium 100 mg/Dextrose 100 ml @ 100 mls/hr Q24H IV Last administered on 02/05/19at 14:36; Start 02/05/19 at 12:00 Active Scripts Active Reported Xiidra (Lifitegrast) 1 Each Droperette 1 Each OP BID Vitamin D (Cholecalciferol (Vitamin D3)) 5,000 Unit Capsule 5,000 Unit PO WEEKLY Tylenol Extra Strength (Acetaminophen) 500 Mg Tablet 2 Mg PO DAILY Triple Antibiotic Ointment (Neomy Sulf/Bacitrac Zn/Poly) 1 Each Oint.pack 1 Each TP HS Triamcinolone Acetonide 0.1% Oint (Triamcinolone Acetonide) 15 Gm Oint...g. 1 Rosa TP BID MIX WITH EUCERIN DIRECTED BY PHYSICIAN Trazodone Hcl 50 Mg Tablet 1 Tab PO QHS Tramadol Hcl 50 Mg Tablet 75 Mg PO TID PRN Xarelto (Rivaroxaban) 20 Mg Tablet 20 Mg PO DAILY Risperdal (Risperidone) 1 Mg Tablet 1 Mg PO QHS Proventil Hfa Inhaler (Albuterol Sulfate) 6.7 Gm Hfa.aer.ad 1 Puff IH PRN Q4HRS PRN Protonix (Pantoprazole Sodium) 20 Mg Tablet.dr 40 Mg PO DAILY Potassium Chloride 20 Meq Tablet.er 20 Meq PO DAILY Miralax (Polyethylene Glycol 3350) 17 Gm Powd.pack 1 Packet PO DAILY PRN Pilocarpine Hcl 5 Mg Tablet 10 Mg PO TID Oxybutynin Chloride Er (Oxybutynin Chloride) 15 Mg Tab.er.24 1 Tab PO DAILY Meclizine Hcl 25 Mg Tablet 1 Tab PO TID Lyrica (Pregabalin) 75 Mg Capsule 1 Cap PO TID Loratadine 10 Mg Tablet 1 Tab PO DAILY Levothyroxine Sodium 175 Mcg Tablet 1 Tab PO DAILY Lasix (Furosemide) 20 Mg Tablet 1 Tab PO DAILY Hydroxyzine Hcl 25 Mg Tablet 1 Tab PO BID Divalproex Sodium Er (Divalproex Sodium) 500 Mg Tab.er.24h 2 Tab PO QHS Divalproex Sodium Er (Divalproex Sodium) 500 Mg Tab.er.24h 1 Tab PO DAILY Colace (Docusate Sodium) 100 Mg Capsule 1 Cap PO BID Celexa (Citalopram Hydrobromide) 40 Mg Tablet 1 Tab PO DAILY Celebrex (Celecoxib) 200 Mg Capsule 1 Cap PO DAILY [calcium alginate] 1 Ea TP HS Budesonide 0.5 Mg/2 Ml Ampul.neb 1 Vial NEB BID Biofreeze (Menthol) 118 Ml Gel..ml. 118 Ml TP TID Baclofen 10 Mg Tablet 1 Tab PO TID Artificial Tears Eye Drops (Dextran 70/Hypromellose) 15 Ml Drops 1 Drop EACHEYE PRN PRN Amlodipine Besylate 5 Mg Tablet 5 Mg PO DAILY Albuterol Sulfate Neb Soln (Albuterol Sulfate) 2.5 Mg/3 Ml Vial.neb 1 Vial NEB PRN Q4HRS Vitals/I & O Vital Sign - Last 24 Hours 02/05/19 02/05/19 02/05/19 02/05/19 11:00 11:28 15:00 15:48 Temp 96.7 97.5 96.7 97.5 Pulse 58 66 Resp 20 20 B/P (MAP) 139/61 (87) 138/72 (94) Pulse Ox 100 97 99 O2 Delivery Nasal Cannula Nasal Cannula Nasal Cannula Nasal Cannula O2 Flow Rate 4.0 4.0 4.0 4.0 02/05/19 02/05/19 02/05/19 02/05/19 18:40 19:30 20:09 20:15 Temp 97.9 97.9 Pulse 61 Resp 17 20 B/P (MAP) 162/85 (110) Pulse Ox 97 O2 Delivery Nasal Cannula Nasal Cannula Nasal Cannula Nasal Cannula O2 Flow Rate 4.0 4.0 4.0 4.0 02/05/19 02/05/19 02/06/19 02/06/19 22:59 23:11 02:24 03:21 Temp 98.0 97.5 98.0 97.5 Pulse 64 58 Resp 16 18 B/P (MAP) 146/81 (102) 160/83 (108) Pulse Ox 96 96 O2 Delivery BiPAP/CPAP Nasal Cannula BiPAP/CPAP BiPAP/CPAP O2 Flow Rate 4.0 02/06/19 02/06/19 02/06/19 02/06/19 05:54 07:00 08:36 08:51 Temp 98.3 98.3 Pulse 56 56 Resp 18 B/P (MAP) 158/84 (108) 158/84 Pulse Ox 98 98 O2 Delivery BiPAP/CPAP Nasal Cannula Nasal Cannula O2 Flow Rate 4.0 6.0 Intake and Output 02/05/19 02/05/19 02/06/19 15:00 23:00 07:00 Intake Total 500 ml 1000 ml Output Total 1300 ml Balance 500 ml -300 ml VADIM PAUL MD Feb 06, 2019 10:24
--- NOTE | 2019-02-06 10:56 | PDOC ---
Infectious Disease Note Subjective Subjective Constipated Tired Left arm "hurts like the devil" + cough O2 3L Denies SOA/CP/N/V/cramps Denies F/C/S/aches ROS ROS per HPI otherwise neg Vital Sign Vital Signs Vital Signs Date Time Temp Pulse Resp B/P (MAP) Pulse Ox O2 Delivery O2 Flow Rate FiO2 02/06/19 08:51 56 158/84 02/06/19 08:36 98 Nasal Cannula 6.0 02/06/19 07:00 98.3 18 98.3 Physical Exam PHYSICAL EXAM GENERAL: Propped up in bed, tired appearance, NAD HEENT: ABNER, Oropharynx dry, edentulous NECK: Supple. LUNGS: Clear, nonlabored HEART: S1, S2. ABDOMEN: Obese, soft, NT. BS present. g-tube : Purewick EXTREMITIES: LLE bandaged, no redness extending beyond NEUROLOGIC: Awake, responds appropriately PIV Labs Lab Laboratory Tests Test 02/05/19 11:41 02/05/19 14:33 02/05/19 17:10 02/05/19 21:01 Glucose (Fingerstick) 125 mg/dL (70-99) 101 mg/dL (70-99) 117 mg/dL (70-99) 129 mg/dL (70-99) Test 02/06/19 07:08 Glucose (Fingerstick) 109 mg/dL (70-99) Micro 02/02/19 Blood Culture - Preliminary, Resulted NO GROWTH AFTER 4 DAYS URINE CULTURE RES 1 Final No growth Objective Assessment Sepsis, source likely respiratory and left lower extremity cellulitis. - CT LLE no abscess Multiple abx allergies: AZITHROMYCIN, CEFTRIAXONE, CIPRO, CLINDAMYCIN, MUPIROCIN. Fever.improving Leukocytosis, improved Lactic acidosis, improved Urinary tract infection with pyuria, 02/02. UC no growth Bilateral pulmonary infiltrate. Mixed hypercapnic respiratory failure. Bandemia. skilled nursing resident. Chronic lymphedema Plan Plan of Care Zosyn since 02/02 Daptomycin since 02/05 Micafungin since 02/05 Off Zyvox for toxin binding Elevate left lower extremity. BC NGTD Improving will taper soon. CPK/CBC in am Attending Co-Sign Attending Co-Sign The patient was seen and interviewed as well as examined at the bedside. The chart was reviewed. The case was discussed. Agree with the plan of care. SUBLETTE,HITESH C [employer] TRAFFIC MANAGER Feb 06, 2019 10:56 LIANNE SPICER MD Feb 06, 2019 13:21
[2019-02-06 11:00] VITALS: BP 152/78
[2019-02-06] MEDS ORDERED: LIDOCAINE (700MG/PATCH) PATCH. TD PRN (11:30)
[2019-02-06] MEDS: METHYL SALICYLATE/MENTHOL TOPICAL OINTMENT 29GM TUBE. TP PRN ×2 (11:37→21:11)
--- NOTE | 2019-02-06 12:04 | PDOC ---
PULMONARY PROGRESS NOTES Subjective not more soa Vitals Vital Signs Date Time Temp Pulse Resp B/P (MAP) Pulse Ox O2 Delivery O2 Flow Rate FiO2 02/06/19 11:00 98.2 68 17 152/78 (102) 97 Room Air 98.2 02/06/19 08:36 6.0 ROS: No Nausea, No Chest Pain, No Abdominal Pain, No Increase Cough Lungs: Wheezing Cardiovascular: S1, S2 Abdomen: Soft, Other (OBESE) Neuro Exam: Alert Extremities: Other (EDEMA) Skin: Warm Labs Laboratory Tests Test 02/04/19 16:24 02/04/19 20:35 02/04/19 23:20 02/05/19 07:54 Glucose (Fingerstick) 116 mg/dL (70-99) 141 mg/dL (70-99) 104 mg/dL (70-99) Vancomycin Level Trough 20.4 mcg/mL (10.0-20.0) Vancomycin Last Dose Date [id number] Vancomycin Last Dose Time 1600 Test 02/05/19 11:41 02/05/19 14:33 02/05/19 17:10 02/05/19 21:01 Glucose (Fingerstick) 125 mg/dL (70-99) 101 mg/dL (70-99) 117 mg/dL (70-99) 129 mg/dL (70-99) Test 02/06/19 07:08 02/06/19 11:46 Glucose (Fingerstick) 109 mg/dL (70-99) 138 mg/dL (70-99) Laboratory Tests Test 02/05/19 14:33 02/05/19 17:10 02/05/19 21:01 02/06/19 07:08 Glucose (Fingerstick) 101 mg/dL (70-99) 117 mg/dL (70-99) 129 mg/dL (70-99) 109 mg/dL (70-99) Test 02/06/19 11:46 Glucose (Fingerstick) 138 mg/dL (70-99) Medications Active Scripts Medications Dose Route/Sig Max Daily Dose Days Date Category Dose Instructions Xiidra (Lifitegrast) 1 Each Droperette 1 Each OP BID 02/02/19 Reported Vitamin D (Cholecalciferol (Vitamin D3)) 5,000 Unit Capsule 5,000 Unit PO WEEKLY 02/02/19 Reported Tylenol Extra Strength (Acetaminophen) 500 Mg Tablet 2 Mg PO DAILY 02/02/19 Reported Triple Antibiotic Ointment (Neomy Sulf/Bacitrac Zn/Poly) 1 Each Oint.pack 1 Each TP HS 02/02/19 Reported Triamcinolone Acetonide 0.1% Oint (Triamcinolone Acetonide) 15 Gm Oint...g. 1 Rosa TP BID 02/02/19 Reported MIX WITH EUCERIN DIRECTED BY PHYSICIAN Trazodone Hcl 50 Mg Tablet 1 Tab PO QHS 02/02/19 Reported Tramadol Hcl 50 Mg Tablet 75 Mg PO TID PRN 02/02/19 Reported Xarelto (Rivaroxaban) 20 Mg Tablet 20 Mg PO DAILY 02/02/19 Reported Risperdal (Risperidone) 1 Mg Tablet 1 Mg PO QHS 02/02/19 Reported Proventil Hfa Inhaler (Albuterol Sulfate) 6.7 Gm Hfa.aer.ad 1 Puff IH PRN Q4HRS PRN 02/02/19 Reported Protonix (Pantoprazole Sodium) 20 Mg Tablet.dr 40 Mg PO DAILY 02/02/19 Reported Potassium Chloride 20 Meq Tablet.er 20 Meq PO DAILY 02/02/19 Reported Miralax (Polyethylene Glycol 3350) 17 Gm Powd.pack 1 Packet PO DAILY PRN 02/02/19 Reported Pilocarpine Hcl 5 Mg Tablet 10 Mg PO TID 02/02/19 Reported Oxybutynin Chloride Er (Oxybutynin Chloride) 15 Mg Tab.er.24 1 Tab PO DAILY 02/02/19 Reported Meclizine Hcl 25 Mg Tablet 1 Tab PO TID 02/02/19 Reported Lyrica (Pregabalin) 75 Mg Capsule 1 Cap PO TID 02/02/19 Reported Loratadine 10 Mg Tablet 1 Tab PO DAILY 02/02/19 Reported Levothyroxine Sodium 175 Mcg Tablet 1 Tab PO DAILY 02/02/19 Reported Lasix (Furosemide) 20 Mg Tablet 1 Tab PO DAILY 02/02/19 Reported Hydroxyzine Hcl 25 Mg Tablet 1 Tab PO BID 02/02/19 Reported Divalproex Sodium Er (Divalproex Sodium) 500 Mg Tab.er.24h 2 Tab PO QHS 02/02/19 Reported Divalproex Sodium Er (Divalproex Sodium) 500 Mg Tab.er.24h 1 Tab PO DAILY 02/02/19 Reported Colace (Docusate Sodium) 100 Mg Capsule 1 Cap PO BID 02/02/19 Reported Celexa (Citalopram Hydrobromide) 40 Mg Tablet 1 Tab PO DAILY 02/02/19 Reported Celebrex (Celecoxib) 200 Mg Capsule 1 Cap PO DAILY 02/02/19 Reported [calcium alginate] 1 Ea TP HS 02/02/19 Reported Budesonide 0.5 Mg/2 Ml Ampul.neb 1 Vial NEB BID 02/02/19 Reported Biofreeze (Menthol) 118 Ml Gel..ml. 118 Ml TP TID 02/02/19 Reported Baclofen 10 Mg Tablet 1 Tab PO TID 02/02/19 Reported Artificial Tears Eye Drops (Dextran 70/Hypromellose) 15 Ml Drops 1 Drop EACHEYE PRN PRN 02/02/19 Reported Amlodipine Besylate 5 Mg Tablet 5 Mg PO DAILY 02/02/19 Reported Albuterol Sulfate Neb Soln (Albuterol Sulfate) 2.5 Mg/3 Ml Vial.neb 1 Vial NEB PRN Q4HRS 02/02/19 Reported Impression . IMPRESSION: 1. Acute hypoxemic respiratory failure. 2. Sepsis. 3. Toxic metabolic encephalopathy. 4. Positive urinalysis, suspect urinary tract infection. 5. Multiple allergies as indicated above. 6. Obesity. CT CHEST 02/02 1. Patchy linear airspace opacities identified in the lungs likely atelectasis or infiltrates. Follow-up to resolution. 2. Enlarged appearing mediastinal and bilateral hilar lymph nodes identified, nonspecific. Examination limited due to lack of IV contrast. Plan . UP TO CHAIR 02 ANTIBX PER ID RESP STATUS IS COMPENSATED QHS BIPAP ANTIBX PT DOES NOT WALK SAUD WASHBURN MD Feb 06, 2019 12:04
[2019-02-06] MEDS: DAPTOmycin (GENERIC) IVPB 570 MG in IV NORMAL SALINE 50ML 50 ML IV SCH (12:25)
[2019-02-06] MEDS: MICAFUNGIN 100 MG in IV DEXTROSE 5% 100ML 100 ML IV SCH (13:22)
[2019-02-06 13:45] LABS: CREATININE 0.6 mg/dL (0.6-1.0)
[2019-02-06 15:00] VITALS: BP 123/62
[2019-02-06] MEDS: ANTI-COAG MONITOR BY PHARMACY. MC PRN (16:23)
[2019-02-06] MEDS: traMADol 50 MG TABLET PO PRN (16:51)
[2019-02-06 20:23] VITALS: BP 145/67
[2019-02-06] MEDS: traZODone 50 MG TABLET. PO SCH (21:10)
[2019-02-06] MEDS: risperiDONE 1 MG TABLET. PO SCH (21:10)
[2019-02-06] MEDS: NEOMY/BACITR/POLYMYXIN OINT PACKET. TP SCH (21:29)
[2019-02-06 23:28] VITALS: BP 147/76
[2019-02-07] MEDS: PIPERACILLIN/TAZOBACTAM 3.375 GM in IV NORMAL SALINE 50ML 50 ML IV SCH ×3 (00:16→12:45)
[2019-02-07 03:41] VITALS: BP 149/80
[2019-02-07 04:01] LABS: BASO % 0 % (0-3); EOS # 0.2 x10^3/uL (0.0-0.7); EOS % 3 % (0-3); HEMATOCRIT 37.2 % (36.0-47.0); HEMOGLOBIN 11.7 g/dL (12.0-15.5); LYMPH # 1.3 x10^3/uL (1.0-4.8); LYMPH % 22 % (24-48); MEAN CORPUSCULAR HEMOGLOBIN 25 pg (25-35); MEAN CORPUSCULAR HGB CONC 32 g/dL (31-37); MEAN CORPUSCULAR VOLUME 79 fL (79-100); MONO # 0.7 x10^3/uL (0.0-1.1); MONO % 12 % (0-9); NEUT # 3.7 x10^3uL (1.8-7.7); NEUT % 63 % (31-73); PLATELET COUNT 215 x10^3/uL (140-400); RED BLOOD COUNT 4.71 x10^6/uL (3.50-5.40); RED CELL DISTRIBUTION WIDTH 16.4 % (11.5-14.5); WHITE BLOOD COUNT 5.9 x10^3/uL (4.0-11.0)
[2019-02-07] MEDS: IPRATRPIUM/ALBUTEROL 0.5/2.5MG 3 ML NEBU. NEB SCH ×4 (06:08→19:33)
[2019-02-07] MEDS: BUDESONIDE 0.5 MG/2 ML NEBU. NEB SCH ×2 (06:09→19:33)
[2019-02-07] MEDS: LEVOTHYROXINE 175 MCG TABLET PO SCH (06:32)
[2019-02-07 07:00] VITALS: BP 122/63
[2019-02-07] MEDS: NYSTATIN TOPICAL POWDER 15GM BOTTLE. TP SCH ×2 (09:00→21:27)
--- NOTE | 2019-02-07 09:50 | PDOC ---
PROGRESS NOTES Chief Complaint Chief Complaint BIlateral infiltrates-pneumonia SNU resident Bedbound because of acute on chronic lymphedema - neg DVT Sepsis present on admission, elevated lactate 3.7, WBC 30 UTI in an SNU resident-, complicated UTI Mixed hypercapnic hypoxic respiratory failure - BIPAP AJ on CPAP at SNU Flu negative Fevers Obesity, BMI 50 DNR History of Present Illness History of Present Illness Bilaterlegs have marked improved in swelling! ON lasix 40 qD at home (LAsix 40 IV here BID with good UOa nd good elytes) SIster DPOA. pt is DNR LEft leg redness almost gone! (marked with sharpie) ID on case - IV dapto etc PT came from SNU LEFT ARM pain persists, cant elevate MEntions to me torn rotator cuff- non surgical candidate LIdoderm patch minimal help PLAN: COnsult physiatry re left shoulder pain/issues CPM IV abx SNU on dc once PO abx DNR Dw MITRA [place] Vitals Vitals Vital Signs Date Time Temp Pulse Resp B/P (MAP) Pulse Ox O2 Delivery O2 Flow Rate FiO2 02/07/19 07:00 97.8 60 17 122/63 (82) 93 Room Air 97.8 02/07/19 06:10 4.0 Physical Exam Physical Exam GENERAL: Propped up in bed, tired appearance, NAD HEENT: ABNER, Oropharynx dry, edentulous NECK: Supple. LUNGS: Clear, nonlabored HEART: S1, S2. ABDOMEN: Obese, soft, NT. BS present. g-tube : Purewick EXTREMITIES: LLE bandaged, no redness extending beyond NEUROLOGIC: Awake, responds appropriately PIV General: Alert, Oriented X3, Cooperative, No acute distress Heart: Regular rate, Normal S1, Normal S2 Lungs: Wheezing Abdomen: Normal bowel sounds, Soft, Other (obese, nontender, normoactive bowel sounds) Extremities: Other (S3 pitting edema, some excoriations of foot, red warm tender juice E left leg wounds-wound care consulted, lateral foot drop) Skin: Other (asper above) Labs LABS Laboratory Tests Test 02/06/19 11:46 02/06/19 13:20 02/06/19 17:04 02/06/19 20:42 Glucose (Fingerstick) 138 mg/dL (70-99) 135 mg/dL (70-99) 164 mg/dL (70-99) Sodium Level 140 mmol/L (136-145) Potassium Level 4.0 mmol/L (3.5-5.1) Chloride Level 97 mmol/L (98-107) Carbon Dioxide Level 43 mmol/L (21-32) Anion Gap 0 (6-14) Blood Urea Nitrogen 12 mg/dL (7-20) Creatinine 0.6 mg/dL (0.6-1.0) Estimated GFR (Cockcroft-Gault) 101.0 Glucose Level 115 mg/dL (70-99) Calcium Level 9.0 mg/dL (8.5-10.1) Test 02/07/19 03:25 02/07/19 08:24 White Blood Count 5.9 x10^3/uL (4.0-11.0) Red Blood Count 4.71 x10^6/uL (3.50-5.40) Hemoglobin 11.7 g/dL (12.0-15.5) Hematocrit 37.2 % (36.0-47.0) Mean Corpuscular Volume 79 fL (79-100) Mean Corpuscular Hemoglobin 25 pg (25-35) Mean Corpuscular Hemoglobin Concent 32 g/dL (31-37) Red Cell Distribution Width 16.4 % (11.5-14.5) Platelet Count 215 x10^3/uL (140-400) Neutrophils (%) (Auto) 63 % (31-73) Lymphocytes (%) (Auto) 22 % (24-48) Monocytes (%) (Auto) 12 % (0-9) Eosinophils (%) (Auto) 3 % (0-3) Basophils (%) (Auto) 0 % (0-3) Neutrophils # (Auto) 3.7 x10^3uL (1.8-7.7) Lymphocytes # (Auto) 1.3 x10^3/uL (1.0-4.8) Monocytes # (Auto) 0.7 x10^3/uL (0.0-1.1) Eosinophils # (Auto) 0.2 x10^3/uL (0.0-0.7) Basophils # (Auto) 0.0 x10^3/uL (0.0-0.2) Creatine Kinase 143 U/L (26-192) Glucose (Fingerstick) 114 mg/dL (70-99) Review of Systems Review of Systems left shoulder pain Assessment and Plan Assessmemt and Plan Problems Medical Problems: (1) Severe sepsis Status: Acute Comment Review of Relevant I have reviewed the following items katie (where applicable) has been applied. Labs Laboratory Tests Test 02/05/19 11:41 02/05/19 14:33 02/05/19 17:10 02/05/19 21:01 Glucose (Fingerstick) 125 mg/dL (70-99) 101 mg/dL (70-99) 117 mg/dL (70-99) 129 mg/dL (70-99) Test 02/06/19 07:08 02/06/19 11:46 02/06/19 13:20 02/06/19 17:04 Glucose (Fingerstick) 109 mg/dL (70-99) 138 mg/dL (70-99) 135 mg/dL (70-99) Sodium Level 140 mmol/L (136-145) Potassium Level 4.0 mmol/L (3.5-5.1) Chloride Level 97 mmol/L (98-107) Carbon Dioxide Level 43 mmol/L (21-32) Anion Gap 0 (6-14) Blood Urea Nitrogen 12 mg/dL (7-20) Creatinine 0.6 mg/dL (0.6-1.0) Estimated GFR (Cockcroft-Gault) 101.0 Glucose Level 115 mg/dL (70-99) Calcium Level 9.0 mg/dL (8.5-10.1) Test 02/06/19 20:42 02/07/19 03:25 02/07/19 08:24 Glucose (Fingerstick) 164 mg/dL (70-99) 114 mg/dL (70-99) White Blood Count 5.9 x10^3/uL (4.0-11.0) Red Blood Count 4.71 x10^6/uL (3.50-5.40) Hemoglobin 11.7 g/dL (12.0-15.5) Hematocrit 37.2 % (36.0-47.0) Mean Corpuscular Volume 79 fL (79-100) Mean Corpuscular Hemoglobin 25 pg (25-35) Mean Corpuscular Hemoglobin Concent 32 g/dL (31-37) Red Cell Distribution Width 16.4 % (11.5-14.5) Platelet Count 215 x10^3/uL (140-400) Neutrophils (%) (Auto) 63 % (31-73) Lymphocytes (%) (Auto) 22 % (24-48) Monocytes (%) (Auto) 12 % (0-9) Eosinophils (%) (Auto) 3 % (0-3) Basophils (%) (Auto) 0 % (0-3) Neutrophils # (Auto) 3.7 x10^3uL (1.8-7.7) Lymphocytes # (Auto) 1.3 x10^3/uL (1.0-4.8) Monocytes # (Auto) 0.7 x10^3/uL (0.0-1.1) Eosinophils # (Auto) 0.2 x10^3/uL (0.0-0.7) Basophils # (Auto) 0.0 x10^3/uL (0.0-0.2) Creatine Kinase 143 U/L (26-192) Laboratory Tests Test 02/06/19 11:46 02/06/19 13:20 02/06/19 17:04 02/06/19 20:42 Glucose (Fingerstick) 138 mg/dL (70-99) 135 mg/dL (70-99) 164 mg/dL (70-99) Sodium Level 140 mmol/L (136-145) Potassium Level 4.0 mmol/L (3.5-5.1) Chloride Level 97 mmol/L (98-107) Carbon Dioxide Level 43 mmol/L (21-32) Anion Gap 0 (6-14) Blood Urea Nitrogen 12 mg/dL (7-20) Creatinine 0.6 mg/dL (0.6-1.0) Estimated GFR (Cockcroft-Gault) 101.0 Glucose Level 115 mg/dL (70-99) Calcium Level 9.0 mg/dL (8.5-10.1) Test 02/07/19 03:25 02/07/19 08:24 White Blood Count 5.9 x10^3/uL (4.0-11.0) Red Blood Count 4.71 x10^6/uL (3.50-5.40) Hemoglobin 11.7 g/dL (12.0-15.5) Hematocrit 37.2 % (36.0-47.0) Mean Corpuscular Volume 79 fL (79-100) Mean Corpuscular Hemoglobin 25 pg (25-35) Mean Corpuscular Hemoglobin Concent 32 g/dL (31-37) Red Cell Distribution Width 16.4 % (11.5-14.5) Platelet Count 215 x10^3/uL (140-400) Neutrophils (%) (Auto) 63 % (31-73) Lymphocytes (%) (Auto) 22 % (24-48) Monocytes (%) (Auto) 12 % (0-9) Eosinophils (%) (Auto) 3 % (0-3) Basophils (%) (Auto) 0 % (0-3) Neutrophils # (Auto) 3.7 x10^3uL (1.8-7.7) Lymphocytes # (Auto) 1.3 x10^3/uL (1.0-4.8) Monocytes # (Auto) 0.7 x10^3/uL (0.0-1.1) Eosinophils # (Auto) 0.2 x10^3/uL (0.0-0.7) Basophils # (Auto) 0.0 x10^3/uL (0.0-0.2) Creatine Kinase 143 U/L (26-192) Glucose (Fingerstick) 114 mg/dL (70-99) Microbiology 02/02/19 Blood Culture - Preliminary, Resulted NO GROWTH AFTER 4 DAYS 02/02/19 Urine Culture - Final, Complete 02/02/19 Urine Culture Result 1 (RITA) - Final, Complete Medications Current Medications Ceftriaxone Sodium (Rocephin) 1 gm 1X ONCE IVP ; Start 02/02/19 at 09:45; Stop 02/02/19 at 09:46; Status UNV Sodium Chloride 1,000 ml @ 1,000 mls/hr 1X ONCE IV Last administered on at 11:46; Start 02/02/19 at 10:45; Stop 02/02/19 at 11:44; Status DC Piperacillin Sod/ Tazobactam Sod 3.375 gm/Sodium Chloride 50 ml @ 100 mls/hr 1X ONCE IV ; Start 02/02/19 at 10:45; Stop 02/02/19 at 10:45; Status DC Vancomycin HCl 250 ml @ 250 mls/hr 1X ONCE IV ; Start 02/02/19 at 10:45; Stop 02/02/19 at 11:44; Status UNV Ondansetron HCl (Zofran) 4 mg PRN Q8HRS PRN IV NAUSEA/VOMITING; Start 02/02/19 at 10:45; Stop 02/03/19 at 09:17; Status DC Sodium Chloride 1,000 ml @ 150 mls/hr Q6H40M IV Last administered on at 08:01; Start 02/02/19 at 11:00; Stop 02/03/19 at 10:59; Status DC Acetaminophen (Tylenol) 650 mg PRN Q4HRS PRN PO FEVER Last administered on 02/03at 06:31; Start 02/02/19 at 10:45; Stop 02/03/19 at 09:34; Status DC Albuterol/ Ipratropium (Duoneb) 3 ml RTQID NEB Last administered on 02/02/19at 19:32; Start 02/02/19 at 12:00; Stop 02/03/19 at 09:32; Status DC Sodium Chloride 500 ml @ 1,000 mls/hr PRN Q30MIN PRN IV SEE COMMENTS Last administered on 02/02/19at 13:07; Start 02/02/19 at 10:45 Vancomycin HCl (Vanco Per Pharmacy) 1 each PRN DAILY PRN MC SEE COMMENTS Last administered on 02/05/19at 03:05; Start 02/02/19 at 10:45; Stop 02/05/19 at 16:14 ; Status DC Piperacillin Sod/ Tazobactam Sod 4.5 gm/Sodium Chloride 100 ml @ 200 mls/hr Q6HRS IV ; Start 02/02/19 at 12:00; Status UNV Dobutamine HCl/ Dextrose 250 ml @ 0 mls/hr CONT PRN IV SEE I/O RECORD; Start at 10:45; Status Cancel Vancomycin HCl 2 gm/Sodium Chloride 500 ml @ 250 mls/hr 1X ONCE IV Last administered on 02/02/19at 11:49; Start 02/02/19 at 11:15; Stop 02/02/19 at 13:14 ; Status DC Sodium Chloride 1,000 ml @ 1,650 mls/hr Q37M IV Last administered on at 11:50; Start 02/02/19 at 11:00; Stop 02/02/19 at 12:00; Status DC Cefepime HCl (Maxipime) 2 gm Q8HRS IVP ; Start 02/02/19 at 14:00; Status UNV Piperacillin Sod/ Tazobactam Sod 4.5 gm/Sodium Chloride 100 ml @ 200 mls/hr Q6HRS IV Last administered on 02/05/19at 05:39; Start 02/02/19 at 11:15; Stop at 11:30; Status DC Vancomycin HCl 2 gm/Sodium Chloride 500 ml @ 250 mls/hr Q12H IV Last administered on 02/03/19at 13:05; Start 02/03/19 at 00:00; Stop 02/03/19 at 23:46 ; Status DC Vancomycin HCl (Vancomycin Trough Level) 1 each 1X ONCE MC Last administered on 02/03/19at 23:30; Start 02/03/19 at 23:30; Stop 02/03/19 at 23:31; Status DC Nystatin (Nystop) 1 rosa BID TP Last administered on 02/06/19at 21:11; Start at 21:00 Insulin Human Lispro (HumaLOG) 0-5 UNITS TIDWMEALS SQ ; Start 02/02/19 at 17:30 ; Stop 02/03/19 at 09:17; Status DC Dextrose (Dextrose 50%-Water Syringe) 12.5 gm PRN Q15MIN PRN IV SEE COMMENTS; Start 02/02/19 at 17:00 Ondansetron HCl (Zofran) 4 mg PRN Q6HRS PRN IV NAUSEA/VOMITING; Start 02/03/19 at 09:30 Albuterol/ Ipratropium (Duoneb) 3 ml RTQID NEB Last administered on 02/07/19at 06:08; Start 02/03/19 at 12:00 Calcium Carbonate/ Glycine (Tums) 500 mg PRN AFTMEALHC PRN PO INDIGESTION; Start 02/03/19 at 09:15 Guaifenesin (Robitussin Dm) 10 ml PRN Q6HRS PRN PO COUGH; Start 02/03/19 at 09: 15 Throat Lozenges (Cepacol Sore Throat Lozenge) 1 melvin PRN Q2HRS PRN PO SORE THROAT; Start 02/03/19 at 09:15 Diphenhydramine HCl (Benadryl) 25 mg PRN QHS PRN PO INSOMNIA; Start 02/03/19 at 09:15 Acetaminophen (Tylenol) 500 mg PRN Q6HRS PRN PO HEADACHE / TEMP Last administered on 02/03/19 17:20; Start 02/03/19 at 09:30 Acetaminophen/ Codeine Phosphate (Tylenol #3) 1 tab PRN Q6HRS PRN PO PAIN MILD ; Start 02/03/19 at 09:30 Amlodipine Besylate (Norvasc) 5 mg DAILY PO Last administered on 02/06/19 08: 51; Start 02/03/19 at 10:00 Baclofen (Lioresal) 10 mg TID PO Last administered on 02/06/19 21:07; Start at 10:00 Budesonide (Pulmicort) 0.5 mg BID NEB Last administered on 02/07/19 06:09; Start 02/03/19 at 21:00 Vitamin D (Vitamin D3) 5,000 unit WEEKLY PO Last administered on 02/03/19 11: 37; Start 02/03/19 at 10:00 Divalproex Sodium (Depakote Er) 500 mg DAILY PO Last administered on 02/06/19 08:49; Start 02/03/19 at 10:00 Divalproex Sodium (Depakote Er) 1,000 mg QHS PO Last administered on 02/06/19 21:09; Start 02/03/19 at 21:00 Docusate Sodium (Colace) 100 mg BID PO Last administered on 02/06/19 21:09; Start 02/03/19 at 10:00 Furosemide (Lasix) 20 mg DAILY PO ; Start 02/03/19 at 10:00; Stop 02/03/19 at 11 :40; Status DC Levothyroxine Sodium (Synthroid) 175 mcg DAILY07 PO Last administered on 06:32; Start 02/03/19 at 10:00 Neomycin/ Polymyxin/ Bacitracin (Triple Antibiotic Ointment) 1 pkt HS TP Last administered on 02/06/19 21:29; Start 02/03/19 at 21:00 Pregabalin (Lyrica) 75 mg TID PO Last administered on 02/06/19 21:10; Start at 10:00 Tramadol HCl (Ultram) 75 mg PRN TID PRN PO PAIN MODERATE Last administered on 16:51; Start 02/03/19 at 09:30 Trazodone HCl (Desyrel) 50 mg QHS PO Last administered on 02/06/19 21:10; Start 02/03/19 at 21:00 Triamcinolone Acetonide (Kenalog) 1 rosa BID TP Last administered on 02/06/19 21:11; Start 02/03/19 at 21:00 Acetaminophen (Tylenol) 1,000 mg DAILY PO Last administered on 02/06/19 08:50 ; Start 02/03/19 at 10:30 Celecoxib (CeleBREX) 200 mg DAILY PO ; Start 02/03/19 at 10:30; Stop 02/03/19 at 11:40; Status DC Citalopram Hydrobromide (CeleXA) 40 mg DAILY PO Last administered on 02/06/19 08:51; Start 02/03/19 at 10:30 Artificial Tears (Artificial Tears) 1 drop PRN Q15MIN PRN OU DRY EYE Last administered on 02/05/19 09:07; Start 02/03/19 at 10:00 Hydroxyzine Pamoate (Vistaril) 25 mg BID PO Last administered on 02/06/19 21: 11; Start 02/03/19 at 10:00 Non-Formulary Medication (Lifitegrast (Xiidra)) 1 each BID OP ; Start 02/03/19 at 21:00; Status UNV Cetirizine HCl (ZyrTEC) 10 mg DAILY PO Last administered on 02/06/19 08:49; Start 02/03/19 at 10:00 Meclizine HCl (Antivert) 25 mg PRN TID PRN PO DIZZINESS; Start 02/03/19 at 10: 00 Multi-Ingredient Ointment (Analgesic [place]) 1 rosa PRN QID PRN TP MUSCLE PAIN; Start 02/03/19 at 10:00; Stop 02/06/19 at 11:26; Status DC Oxybutynin Chloride (Ditropan) 5 mg [id number] PO Last administered on 02/06/19 21 :10; Start 02/03/19 at 14:00 Pantoprazole Sodium (Protonix) 40 mg DAILYAC PO Last administered on 02/06/19 05:58; Start 02/03/19 at 10:00 Pilocarpine HCl (Salagen) 10 mg TID PO Last administered on 02/06/19 21:10; Start 02/03/19 at 10:30 Polyethylene Glycol (miraLAX PACKET) 17 gm PRN DAILY PRN PO CONSTIPATION Last administered on 02/06/19 12:30; Start 02/03/19 at 09:00 Potassium Chloride (Klor-Con) 20 meq DAILY08 PO Last administered on 02/06/19 08:50; Start 02/03/19 at 10:30 Risperidone (RisperDAL) 1 mg QHS PO Last administered on 02/06/19 21:10; Start 02/03/19 at 21:00 Rivaroxaban (Xarelto) 20 mg DAILY PO Last administered on 02/06/19 08:49; Start 02/03/19 at 10:00 Non-Formulary Medication ([calcium alginate] ) 1 ea HS TP ; Start 02/03/19 at 21 :00; Status UNV Furosemide (Lasix) 40 mg 1X ONCE IVP Last administered on 02/03/19 12:13; Start 02/03/19 at 11:45; Stop 02/03/19 at 11:46; Status DC Furosemide (Lasix) 40 mg BID92 IVP Last administered on 02/06/19 14:27; Start 02/03/19 at 18:00 Ascorbic Acid (Vitamin C) 500 mg DAILY PO Last administered on 02/06/19 08:49 ; Start 02/03/19 at 12:00 Zinc Acetate/ Diphenhydramine (Benadryl Topical) 1 rosa TID PRN TP itchy legs; Start 02/03/19 at 11:45 Linezolid (Zyvox) 600 mg BID PO Last administered on 02/05/19 09:04; Start at 21:00; Stop 02/05/19 at 11:30; Status DC Info (Anti-Coagulation Monitoring By Pharmacy) 1 each PRN DAILY PRN MC SEE COMMENTS Last administered on 02/06/19at 16:23; Start 02/03/19 at 13:00 Lactobacillus Rhamnosus (Culturelle) 1 cap BID PO Last administered on 21:07; Start 02/03/19 at 21:00 Vancomycin HCl 2 gm/Sodium Chloride 500 ml @ 250 mls/hr Q8H IV Last administered on 02/05/19 09:02; Start 02/04/19 at 00:00; Stop 02/05/19 at 11:30 ; Status DC Vancomycin HCl (Vancomycin Trough Level) 1 each 1X ONCE MC Last administered on 02/04/19at 23:30; Start 02/04/19 at 23:30; Stop 02/04/19 at 23:31; Status DC Potassium Chloride (Klor-Con) 20 meq STK-MED ONCE PO ; Start 02/03/19 at 09:00; Stop 02/05/19 at 10:15; Status DC Potassium Chloride (Klor-Con) 20 meq STK-MED ONCE PO ; Start 02/04/19 at 09:00; Stop 02/05/19 at 10:16; Status DC Potassium Chloride (Klor-Con) 20 meq STK-MED ONCE PO ; Start 02/05/19 at 09:00; Stop 02/05/19 at 10:16; Status DC Daptomycin 570 mg/ Sodium Chloride 50 ml @ 100 mls/hr Q24H IV Last administered on 02/06/19at 12:25; Start 02/05/19 at 12:00 Piperacillin Sod/ Tazobactam Sod 3.375 gm/Sodium Chloride 50 ml @ 100 mls/hr Q6HRS IV Last administered on 02/07/19at 05:15; Start 02/05/19 at 12:00 Micafungin Sodium 100 mg/Dextrose 100 ml @ 100 mls/hr Q24H IV Last administered on 02/06/19 13:22; Start 02/05/19 at 12:00 Multi-Ingredient Ointment (Analgesic [place]) 1 rosa PRN QID PRN TP MUSCLE PAIN Last administered on 02/06/19 21:11; Start 02/06/19 at 11:30 Lidocaine (Lidoderm) 1 patch PRN DAILY PRN TD L shoulder pain Last administered on 02/06/19at 11:38; Start 02/06/19 at 11:30 Active Scripts Active Reported Xiidra (Lifitegrast) 1 Each Droperette 1 Each OP BID Vitamin D (Cholecalciferol (Vitamin D3)) 5,000 Unit Capsule 5,000 Unit PO WEEKLY Tylenol Extra Strength (Acetaminophen) 500 Mg Tablet 2 Mg PO DAILY Triple Antibiotic Ointment (Neomy Sulf/Bacitrac Zn/Poly) 1 Each Oint.pack 1 Each TP HS Triamcinolone Acetonide 0.1% Oint (Triamcinolone Acetonide) 15 Gm Oint...g. 1 Rosa TP BID MIX WITH EUCERIN DIRECTED BY PHYSICIAN Trazodone Hcl 50 Mg Tablet 1 Tab PO QHS Tramadol Hcl 50 Mg Tablet 75 Mg PO TID PRN Xarelto (Rivaroxaban) 20 Mg Tablet 20 Mg PO DAILY Risperdal (Risperidone) 1 Mg Tablet 1 Mg PO QHS Proventil Hfa Inhaler (Albuterol Sulfate) 6.7 Gm Hfa.aer.ad 1 Puff IH PRN Q4HRS PRN Protonix (Pantoprazole Sodium) 20 Mg Tablet.dr 40 Mg PO DAILY Potassium Chloride 20 Meq Tablet.er 20 Meq PO DAILY Miralax (Polyethylene Glycol 3350) 17 Gm Powd.pack 1 Packet PO DAILY PRN Pilocarpine Hcl 5 Mg Tablet 10 Mg PO TID Oxybutynin Chloride Er (Oxybutynin Chloride) 15 Mg Tab.er.24 1 Tab PO DAILY Meclizine Hcl 25 Mg Tablet 1 Tab PO TID Lyrica (Pregabalin) 75 Mg Capsule 1 Cap PO TID Loratadine 10 Mg Tablet 1 Tab PO DAILY Levothyroxine Sodium 175 Mcg Tablet 1 Tab PO DAILY Lasix (Furosemide) 20 Mg Tablet 1 Tab PO DAILY Hydroxyzine Hcl 25 Mg Tablet 1 Tab PO BID Divalproex Sodium Er (Divalproex Sodium) 500 Mg Tab.er.24h 2 Tab PO QHS Divalproex Sodium Er (Divalproex Sodium) 500 Mg Tab.er.24h 1 Tab PO DAILY Colace (Docusate Sodium) 100 Mg Capsule 1 Cap PO BID Celexa (Citalopram Hydrobromide) 40 Mg Tablet 1 Tab PO DAILY Celebrex (Celecoxib) 200 Mg Capsule 1 Cap PO DAILY [calcium alginate] 1 Ea TP HS Budesonide 0.5 Mg/2 Ml Ampul.neb 1 Vial NEB BID Biofreeze (Menthol) 118 Ml Gel..ml. 118 Ml TP TID Baclofen 10 Mg Tablet 1 Tab PO TID Artificial Tears Eye Drops (Dextran 70/Hypromellose) 15 Ml Drops 1 Drop EACHEYE PRN PRN Amlodipine Besylate 5 Mg Tablet 5 Mg PO DAILY Albuterol Sulfate Neb Soln (Albuterol Sulfate) 2.5 Mg/3 Ml Vial.neb 1 Vial NEB PRN Q4HRS Vitals/I & O Vital Sign - Last 24 Hours 02/06/19 02/06/19 02/06/19 02/06/19 11:00 15:00 15:00 19:35 Temp 98.2 98.1 98.2 98.1 Pulse 68 55 Resp 17 16 B/P (MAP) 152/78 (102) 123/62 (82) Pulse Ox 97 96 97 95 O2 Delivery Room Air Nasal Cannula Nasal Cannula Nasal Cannula O2 Flow Rate 4.0 4.0 3.0 02/06/19 02/06/19 02/06/19 02/06/19 19:36 20:00 20:23 23:27 Temp 97.8 97.8 Pulse 65 Resp 16 B/P (MAP) 145/67 (93) Pulse Ox 95 93 O2 Delivery Nasal Cannula Nasal Cannula Nasal Cannula BiPAP/CPAP O2 Flow Rate 3.0 4.0 4.0 02/06/19 02/07/19 02/07/19 02/07/19 23:28 01:51 03:41 06:09 Temp 98.0 98.4 98.0 98.4 Pulse 67 61 Resp 18 16 B/P (MAP) 147/76 (99) 149/80 (103) Pulse Ox 97 95 95 O2 Delivery Nasal Cannula BiPAP/CPAP Nasal Cannula Nasal Cannula O2 Flow Rate 4.0 4.0 4.0 02/07/19 02/07/19 06:10 07:00 Temp 97.8 97.8 Pulse 60 Resp 17 B/P (MAP) 122/63 (82) Pulse Ox 95 93 O2 Delivery Nasal Cannula Room Air O2 Flow Rate 4.0 Intake and Output 02/06/19 02/06/19 02/07/19 14:59 22:59 06:59 Intake Total 360 ml Output Total 1400 ml 1450 ml Balance -1400 ml -1090 ml TERMULOVADIM Y MD Feb 07, 2019 09:50
[2019-02-07] MEDS: PREGABALIN 75 MG CAPSULE PO SCH ×3 (09:55→21:22)
[2019-02-07] MEDS: LACTOBACILLUS RHAMNOSUS GG 1 CAPSULE. PO SCH ×2 (09:55→21:23)
[2019-02-07] MEDS: CITALOPRAM 20 MG TABLET. PO SCH (09:55)
[2019-02-07] MEDS: DIVALPROEX EXTENDED RELEASE 500 MG TAB.ER.24H. PO SCH ×2 (09:55→21:23)
[2019-02-07] MEDS: CETIRIZINE HCL 10 MG TABLET. PO SCH (09:55)
[2019-02-07] MEDS: DOCUSATE SODIUM 100 MG CAPSULE. PO SCH ×2 (09:57→21:23)
[2019-02-07] MEDS: PANTOPRAZOLE 40 MG TABLET.DR. PO SCH (09:57)
[2019-02-07] MEDS: PILOCARPINE 5 MG TABLET. PO SCH ×3 (09:57→21:23)
[2019-02-07] MEDS: traMADol 50 MG TABLET PO PRN (09:57)
[2019-02-07] MEDS: RIVAROXABAN 10 MG TABLET. PO SCH (09:58)
[2019-02-07] MEDS: BACLOFEN 10 MG TABLET. PO SCH ×3 (09:58→21:22)
[2019-02-07] MEDS: OXYBUTYNIN CHLORIDE 5 MG TABLET PO SCH ×3 (09:58→21:22)
[2019-02-07] MEDS: ACETAMINOPHEN 500 MG TABLET PO SCH (09:58)
[2019-02-07] MEDS: hydrOXYzine PAMOATE 25 MG CAPSULE PO SCH ×2 (09:59→21:23)
[2019-02-07] MEDS: amLODIPine BESYLATE 5 MG TABLET PO SCH (09:59)
[2019-02-07] MEDS: POTASSIUM CHLORIDE 20 MEQ TABLET.ER. PO SCH (09:59)
[2019-02-07] MEDS: ASCORBIC ACID 500 MG TABLET PO SCH (09:59)
[2019-02-07] MEDS: FUROSEMIDE 40 MG/4 ML VIAL. IVP SCH ×2 (10:00→15:57)
--- NOTE | 2019-02-07 10:55 | PDOC ---
Infectious Disease Note Subjective Subjective Feeling better this morning No BM Denies SOA/CP/N/V/cramps Denies F/C/S/aches ROS ROS per HPI otherwise neg Vital Sign Vital Signs Vital Signs Date Time Temp Pulse Resp B/P (MAP) Pulse Ox O2 Delivery O2 Flow Rate FiO2 02/07/19 09:59 60 122/63 02/07/19 07:00 97.8 17 93 Room Air 97.8 02/07/19 06:10 4.0 Physical Exam PHYSICAL EXAM GENERAL: Propped up in bed, alert, smiling HENT: Oral cavity clear NECK: Supple. LUNGS: Clear, nonlabored HEART: S1, S2. ABDOMEN: Obese, soft, NT. BS present. g-tube : Purewick EXTREMITIES: LLE bandaged- removed. wound is very clean. Cellulitis is resolving NEUROLOGIC: Alert, responds appropriately PIV Labs Lab Laboratory Tests Test 02/06/19 11:46 02/06/19 13:20 02/06/19 17:04 02/06/19 20:42 Glucose (Fingerstick) 138 mg/dL (70-99) 135 mg/dL (70-99) 164 mg/dL (70-99) Sodium Level 140 mmol/L (136-145) Potassium Level 4.0 mmol/L (3.5-5.1) Chloride Level 97 mmol/L (98-107) Carbon Dioxide Level 43 mmol/L (21-32) Anion Gap 0 (6-14) Blood Urea Nitrogen 12 mg/dL (7-20) Creatinine 0.6 mg/dL (0.6-1.0) Estimated GFR (Cockcroft-Gault) 101.0 Glucose Level 115 mg/dL (70-99) Calcium Level 9.0 mg/dL (8.5-10.1) Test 02/07/19 03:25 02/07/19 08:24 White Blood Count 5.9 x10^3/uL (4.0-11.0) Red Blood Count 4.71 x10^6/uL (3.50-5.40) Hemoglobin 11.7 g/dL (12.0-15.5) Hematocrit 37.2 % (36.0-47.0) Mean Corpuscular Volume 79 fL (79-100) Mean Corpuscular Hemoglobin 25 pg (25-35) Mean Corpuscular Hemoglobin Concent 32 g/dL (31-37) Red Cell Distribution Width 16.4 % (11.5-14.5) Platelet Count 215 x10^3/uL (140-400) Neutrophils (%) (Auto) 63 % (31-73) Lymphocytes (%) (Auto) 22 % (24-48) Monocytes (%) (Auto) 12 % (0-9) Eosinophils (%) (Auto) 3 % (0-3) Basophils (%) (Auto) 0 % (0-3) Neutrophils # (Auto) 3.7 x10^3uL (1.8-7.7) Lymphocytes # (Auto) 1.3 x10^3/uL (1.0-4.8) Monocytes # (Auto) 0.7 x10^3/uL (0.0-1.1) Eosinophils # (Auto) 0.2 x10^3/uL (0.0-0.7) Basophils # (Auto) 0.0 x10^3/uL (0.0-0.2) Creatine Kinase 143 U/L (26-192) Glucose (Fingerstick) 114 mg/dL (70-99) Micro 02/02/19 Blood Culture - Preliminary, Resulted NO GROWTH AFTER 5 DAYS URINE CULTURE RES 1 Final No growth Objective Assessment Sepsis, source likely respiratory and left lower extremity cellulitis. - CT LLE no abscess Left lower extremity cellulitis Multiple abx allergies: AZITHROMYCIN, CEFTRIAXONE, CIPRO, CLINDAMYCIN, MUPIROCIN. Fever.improving Leukocytosis, improved Lactic acidosis, improved Urinary tract infection with pyuria, 02/02. UC no growth Bilateral pulmonary infiltrate. Mixed hypercapnic respiratory failure. Bandemia. [facility] resident. Chronic lymphedema Plan Plan of Care Zosyn since 02/02 Daptomycin since 02/05. CK 143 Micafungin since 02/05 Off Zyvox for toxin binding Elevate left lower extremity. BC NGTD f/u am labs Dressing to be changed this afternoon D/w nursing Leg looks like it is healing well D/cZosyn/Dapto/Micafung. Add Augmentin/ Fluconazole and restart Zyvox (has tolerate) - if stable can d/c 02/08 on 5 days of abx D/w nursing Attending Co-Sign Attending Co-Sign The patient was seen and interviewed as well as examined at the bedside. The chart was reviewed. The case was discussed. Agree with the plan of care. HITESH PEPPER APRN Feb 07, 2019 10:55 LIANNE SPICER MD Feb 07, 2019 15:17
[2019-02-07 11:00] VITALS: BP 151/84
[2019-02-07] MEDS: DAPTOmycin (GENERIC) IVPB 570 MG in IV NORMAL SALINE 50ML 50 ML IV SCH (12:44)
[2019-02-07] MEDS: MICAFUNGIN 100 MG in IV DEXTROSE 5% 100ML 100 ML IV SCH (12:46)
[2019-02-07 15:00] VITALS: BP 139/61
[2019-02-07] MEDS: TRIAMCINOLONE ACETONIDE 0.1% TOPICAL OINTMENT 15GM TUBE. TP SCH ×2 (15:58→21:27)
[2019-02-07 19:45] VITALS: BP 149/77
[2019-02-07] MEDS: LINEZOLID 600 MG TABLET PO SCH (21:22)
[2019-02-07] MEDS: risperiDONE 1 MG TABLET. PO SCH (21:22)
[2019-02-07] MEDS: traZODone 50 MG TABLET. PO SCH (21:22)
[2019-02-07] MEDS: AMOXICILLIN/K CLAV 875/125MG TABLET. PO SCH (21:23)
[2019-02-07] MEDS: NEOMY/BACITR/POLYMYXIN OINT PACKET. TP SCH (21:26)
[2019-02-07] MEDS: METHYL SALICYLATE/MENTHOL TOPICAL OINTMENT 29GM TUBE. TP PRN (21:26)
[2019-02-07 23:58] VITALS: BP 157/77
[2019-02-08 03:25] VITALS: BP 138/78
[2019-02-08 04:54] LABS: BASO % 1 % (0-3); EOS # 0.2 x10^3/uL (0.0-0.7); EOS % 3 % (0-3); HEMATOCRIT 40.7 % (36.0-47.0); HEMOGLOBIN 12.6 g/dL (12.0-15.5); LYMPH # 1.6 x10^3/uL (1.0-4.8); LYMPH % 21 % (24-48); MEAN CORPUSCULAR HEMOGLOBIN 25 pg (25-35); MEAN CORPUSCULAR HGB CONC 31 g/dL (31-37); MEAN CORPUSCULAR VOLUME 79 fL (79-100); MONO # 0.8 x10^3/uL (0.0-1.1); MONO % 11 % (0-9); NEUT # 4.8 x10^3uL (1.8-7.7); NEUT % 65 % (31-73); PLATELET COUNT 242 x10^3/uL (140-400); RED BLOOD COUNT 5.12 x10^6/uL (3.50-5.40); WHITE BLOOD COUNT 7.5 x10^3/uL (4.0-11.0)
[2019-02-08 05:42] LABS: CALCIUM 9.4 mg/dL (8.5-10.1); CREATININE 0.6 mg/dL (0.6-1.0); POTASSIUM 3.9 mmol/L (3.5-5.1)
[2019-02-08] MEDS: LEVOTHYROXINE 175 MCG TABLET PO SCH (06:37)
[2019-02-08 07:25] VITALS: BP 148/86
[2019-02-08] MEDS: PANTOPRAZOLE 40 MG TABLET.DR. PO SCH (08:03)
[2019-02-08] MEDS: BACLOFEN 10 MG TABLET. PO SCH ×2 (08:03→14:20)
[2019-02-08] MEDS: PILOCARPINE 5 MG TABLET. PO SCH ×2 (08:03→14:20)
[2019-02-08] MEDS: LACTOBACILLUS RHAMNOSUS GG 1 CAPSULE. PO SCH (08:04)
[2019-02-08] MEDS: RIVAROXABAN 10 MG TABLET. PO SCH (08:04)
[2019-02-08] MEDS: POTASSIUM CHLORIDE 20 MEQ TABLET.ER. PO SCH (08:04)
[2019-02-08] MEDS: AMOXICILLIN/K CLAV 875/125MG TABLET. PO SCH (08:04)
[2019-02-08] MEDS: OXYBUTYNIN CHLORIDE 5 MG TABLET PO SCH ×2 (08:04→14:20)
[2019-02-08] MEDS: CETIRIZINE HCL 10 MG TABLET. PO SCH (08:05)
[2019-02-08] MEDS: DOCUSATE SODIUM 100 MG CAPSULE. PO SCH (08:05)
[2019-02-08] MEDS: amLODIPine BESYLATE 5 MG TABLET PO SCH (08:05)
[2019-02-08] MEDS: DIVALPROEX EXTENDED RELEASE 500 MG TAB.ER.24H. PO SCH (08:05)
[2019-02-08] MEDS: LINEZOLID 600 MG TABLET PO SCH (08:06)
[2019-02-08] MEDS: PREGABALIN 75 MG CAPSULE PO SCH ×2 (08:06→14:20)
[2019-02-08] MEDS: CITALOPRAM 20 MG TABLET. PO SCH (08:06)
[2019-02-08] MEDS: hydrOXYzine PAMOATE 25 MG CAPSULE PO SCH (08:06)
[2019-02-08] MEDS: ASCORBIC ACID 500 MG TABLET PO SCH (08:06)
[2019-02-08] MEDS: FUROSEMIDE 40 MG/4 ML VIAL. IVP SCH ×2 (08:07→14:21)
[2019-02-08] MEDS: ACETAMINOPHEN 500 MG TABLET PO SCH (08:07)
[2019-02-08] MEDS: TRIAMCINOLONE ACETONIDE 0.1% TOPICAL OINTMENT 15GM TUBE. TP SCH (08:28)
[2019-02-08] MEDS: NYSTATIN TOPICAL POWDER 15GM BOTTLE. TP SCH (08:28)
--- NOTE | 2019-02-08 08:48 | PDOC ---
Infectious Disease Note Subjective Subjective Feeling better this morning Feels more constipated Leg better Denies SOA/CP/N/V/cramps Denies F/C/S/aches ROS ROS o/w neg Vital Sign Vital Signs Vital Signs Date Time Temp Pulse Resp B/P (MAP) Pulse Ox O2 Delivery O2 Flow Rate FiO2 02/08/19 08:05 66 148/86 02/08/19 07:25 98.9 20 96 Nasal Cannula 4.0 98.9 Physical Exam PHYSICAL EXAM GENERAL: Propped up in bed, alert, smiling HENT: Oral cavity clear NECK: Supple. LUNGS: Clear, nonlabored HEART: S1, S2. ABDOMEN: Obese, soft, NT. BS present. g-tube : Purewick EXTREMITIES: LLE bandaged- less edema Cellulitis is resolving NEUROLOGIC: Alert, responds appropriately PIV Labs Lab Laboratory Tests Test 02/07/19 12:02 02/07/19 17:05 02/07/19 20:06 02/08/19 04:15 Glucose (Fingerstick) 133 mg/dL (70-99) 119 mg/dL (70-99) 156 mg/dL (70-99) White Blood Count 7.5 x10^3/uL (4.0-11.0) Red Blood Count 5.12 x10^6/uL (3.50-5.40) Hemoglobin 12.6 g/dL (12.0-15.5) Hematocrit 40.7 % (36.0-47.0) Mean Corpuscular Volume 79 fL (79-100) Mean Corpuscular Hemoglobin 25 pg (25-35) Mean Corpuscular Hemoglobin Concent 31 g/dL (31-37) Red Cell Distribution Width 16.0 % (11.5-14.5) Platelet Count 242 x10^3/uL (140-400) Neutrophils (%) (Auto) 65 % (31-73) Lymphocytes (%) (Auto) 21 % (24-48) Monocytes (%) (Auto) 11 % (0-9) Eosinophils (%) (Auto) 3 % (0-3) Basophils (%) (Auto) 1 % (0-3) Neutrophils # (Auto) 4.8 x10^3uL (1.8-7.7) Lymphocytes # (Auto) 1.6 x10^3/uL (1.0-4.8) Monocytes # (Auto) 0.8 x10^3/uL (0.0-1.1) Eosinophils # (Auto) 0.2 x10^3/uL (0.0-0.7) Basophils # (Auto) 0.0 x10^3/uL (0.0-0.2) Test 02/08/19 04:25 02/08/19 07:34 Erythrocyte Sedimentation Rate 49 (0-25) Sodium Level 140 mmol/L (136-145) Potassium Level 3.9 mmol/L (3.5-5.1) Chloride Level 96 mmol/L (98-107) Carbon Dioxide Level 40 mmol/L (21-32) Anion Gap 4 (6-14) Blood Urea Nitrogen 15 mg/dL (7-20) Creatinine 0.6 mg/dL (0.6-1.0) Estimated GFR (Cockcroft-Gault) 101.0 Glucose Level 151 mg/dL (70-99) Calcium Level 9.4 mg/dL (8.5-10.1) Glucose (Fingerstick) 132 mg/dL (70-99) Micro Microbiology 02/02/19 Blood Culture - Final, Complete NO GROWTH AFTER 5 DAYS 02/02/19 Urine Culture - Final, Complete 02/02/19 Urine Culture Result 1 (RITA) - Final, Complete Objective Assessment Sepsis, source likely respiratory and left lower extremity cellulitis. - CT LLE no abscess Left lower extremity cellulitis Multiple abx allergies: AZITHROMYCIN, CEFTRIAXONE, CIPRO, CLINDAMYCIN, MUPIROCIN. Fever.improving Leukocytosis, improved Lactic acidosis, improved Urinary tract infection with pyuria, 02/02. UC no growth Bilateral pulmonary infiltrate. Mixed hypercapnic respiratory failure. Bandemia. [facility] resident. Chronic lymphedema Plan Plan of Care Previous Zosyn since 02/02 /Daptomycin since 02/05. CK 143/ Micafungin since 02/05 Can d/c on Augmentin/Fluconazole and Zyvox (has tolerate) - 4 days of abx Elevate left lower extremity. D/w nursing re constipation ID to sign off LIANNE SPICER MD Feb 08, 2019 08:48
[2019-02-08] MEDS ORDERED: FLUCONAZOLE 100 MG TABLET. PO SCH (09:00)
--- NOTE | 2019-02-08 09:03 | PDOC ---
PULMONARY PROGRESS NOTES Subjective not more soa Vitals Vital Signs Date Time Temp Pulse Resp B/P (MAP) Pulse Ox O2 Delivery O2 Flow Rate FiO2 02/08/19 08:05 66 148/86 02/08/19 07:25 98.9 20 96 Nasal Cannula 4.0 98.9 ROS: No Nausea, No Chest Pain, No Abdominal Pain, No Increase Cough Lungs: Wheezing Cardiovascular: S1, S2 Abdomen: Soft, Other (OBESE) Neuro Exam: Alert Extremities: Other (EDEMA) Skin: Warm Labs Laboratory Tests Test 02/06/19 11:46 02/06/19 13:20 02/06/19 17:04 02/06/19 20:42 Glucose (Fingerstick) 138 mg/dL (70-99) 135 mg/dL (70-99) 164 mg/dL (70-99) Sodium Level 140 mmol/L (136-145) Potassium Level 4.0 mmol/L (3.5-5.1) Chloride Level 97 mmol/L (98-107) Carbon Dioxide Level 43 mmol/L (21-32) Anion Gap 0 (6-14) Blood Urea Nitrogen 12 mg/dL (7-20) Creatinine 0.6 mg/dL (0.6-1.0) Estimated GFR (Cockcroft-Gault) 101.0 Glucose Level 115 mg/dL (70-99) Calcium Level 9.0 mg/dL (8.5-10.1) Test 02/07/19 03:25 02/07/19 08:24 02/07/19 12:02 02/07/19 17:05 White Blood Count 5.9 x10^3/uL (4.0-11.0) Red Blood Count 4.71 x10^6/uL (3.50-5.40) Hemoglobin 11.7 g/dL (12.0-15.5) Hematocrit 37.2 % (36.0-47.0) Mean Corpuscular Volume 79 fL (79-100) Mean Corpuscular Hemoglobin 25 pg (25-35) Mean Corpuscular Hemoglobin Concent 32 g/dL (31-37) Red Cell Distribution Width 16.4 % (11.5-14.5) Platelet Count 215 x10^3/uL (140-400) Neutrophils (%) (Auto) 63 % (31-73) Lymphocytes (%) (Auto) 22 % (24-48) Monocytes (%) (Auto) 12 % (0-9) Eosinophils (%) (Auto) 3 % (0-3) Basophils (%) (Auto) 0 % (0-3) Neutrophils # (Auto) 3.7 x10^3uL (1.8-7.7) Lymphocytes # (Auto) 1.3 x10^3/uL (1.0-4.8) Monocytes # (Auto) 0.7 x10^3/uL (0.0-1.1) Eosinophils # (Auto) 0.2 x10^3/uL (0.0-0.7) Basophils # (Auto) 0.0 x10^3/uL (0.0-0.2) Creatine Kinase 143 U/L (26-192) Glucose (Fingerstick) 114 mg/dL (70-99) 133 mg/dL (70-99) 119 mg/dL (70-99) Test 02/07/19 20:06 02/08/19 04:15 02/08/19 04:25 02/08/19 07:34 Glucose (Fingerstick) 156 mg/dL (70-99) 132 mg/dL (70-99) White Blood Count 7.5 x10^3/uL (4.0-11.0) Red Blood Count 5.12 x10^6/uL (3.50-5.40) Hemoglobin 12.6 g/dL (12.0-15.5) Hematocrit 40.7 % (36.0-47.0) Mean Corpuscular Volume 79 fL (79-100) Mean Corpuscular Hemoglobin 25 pg (25-35) Mean Corpuscular Hemoglobin Concent 31 g/dL (31-37) Red Cell Distribution Width 16.0 % (11.5-14.5) Platelet Count 242 x10^3/uL (140-400) Neutrophils (%) (Auto) 65 % (31-73) Lymphocytes (%) (Auto) 21 % (24-48) Monocytes (%) (Auto) 11 % (0-9) Eosinophils (%) (Auto) 3 % (0-3) Basophils (%) (Auto) 1 % (0-3) Neutrophils # (Auto) 4.8 x10^3uL (1.8-7.7) Lymphocytes # (Auto) 1.6 x10^3/uL (1.0-4.8) Monocytes # (Auto) 0.8 x10^3/uL (0.0-1.1) Eosinophils # (Auto) 0.2 x10^3/uL (0.0-0.7) Basophils # (Auto) 0.0 x10^3/uL (0.0-0.2) Erythrocyte Sedimentation Rate 49 (0-25) Sodium Level 140 mmol/L (136-145) Potassium Level 3.9 mmol/L (3.5-5.1) Chloride Level 96 mmol/L (98-107) Carbon Dioxide Level 40 mmol/L (21-32) Anion Gap 4 (6-14) Blood Urea Nitrogen 15 mg/dL (7-20) Creatinine 0.6 mg/dL (0.6-1.0) Estimated GFR (Cockcroft-Gault) 101.0 Glucose Level 151 mg/dL (70-99) Calcium Level 9.4 mg/dL (8.5-10.1) Laboratory Tests Test 02/07/19 12:02 02/07/19 17:05 02/07/19 20:06 02/08/19 04:15 Glucose (Fingerstick) 133 mg/dL (70-99) 119 mg/dL (70-99) 156 mg/dL (70-99) White Blood Count 7.5 x10^3/uL (4.0-11.0) Red Blood Count 5.12 x10^6/uL (3.50-5.40) Hemoglobin 12.6 g/dL (12.0-15.5) Hematocrit 40.7 % (36.0-47.0) Mean Corpuscular Volume 79 fL (79-100) Mean Corpuscular Hemoglobin 25 pg (25-35) Mean Corpuscular Hemoglobin Concent 31 g/dL (31-37) Red Cell Distribution Width 16.0 % (11.5-14.5) Platelet Count 242 x10^3/uL (140-400) Neutrophils (%) (Auto) 65 % (31-73) Lymphocytes (%) (Auto) 21 % (24-48) Monocytes (%) (Auto) 11 % (0-9) Eosinophils (%) (Auto) 3 % (0-3) Basophils (%) (Auto) 1 % (0-3) Neutrophils # (Auto) 4.8 x10^3uL (1.8-7.7) Lymphocytes # (Auto) 1.6 x10^3/uL (1.0-4.8) Monocytes # (Auto) 0.8 x10^3/uL (0.0-1.1) Eosinophils # (Auto) 0.2 x10^3/uL (0.0-0.7) Basophils # (Auto) 0.0 x10^3/uL (0.0-0.2) Test 02/08/19 04:25 02/08/19 07:34 Erythrocyte Sedimentation Rate 49 (0-25) Sodium Level 140 mmol/L (136-145) Potassium Level 3.9 mmol/L (3.5-5.1) Chloride Level 96 mmol/L (98-107) Carbon Dioxide Level 40 mmol/L (21-32) Anion Gap 4 (6-14) Blood Urea Nitrogen 15 mg/dL (7-20) Creatinine 0.6 mg/dL (0.6-1.0) Estimated GFR (Cockcroft-Gault) 101.0 Glucose Level 151 mg/dL (70-99) Calcium Level 9.4 mg/dL (8.5-10.1) Glucose (Fingerstick) 132 mg/dL (70-99) Medications Active Scripts Medications Dose Route/Sig Max Daily Dose Days Date Category Dose Instructions Xiidra (Lifitegrast) 1 Each Droperette 1 Each OP BID 02/02/19 Reported Vitamin D (Cholecalciferol (Vitamin D3)) 5,000 Unit Capsule 5,000 Unit PO WEEKLY 02/02/19 Reported Tylenol Extra Strength (Acetaminophen) 500 Mg Tablet 2 Mg PO DAILY 02/02/19 Reported Triple Antibiotic Ointment (Neomy Sulf/Bacitrac Zn/Poly) 1 Each Oint.pack 1 Each TP HS 02/02/19 Reported Triamcinolone Acetonide 0.1% Oint (Triamcinolone Acetonide) 15 Gm Oint...g. 1 Rosa TP BID 02/02/19 Reported MIX WITH EUCERIN DIRECTED BY PHYSICIAN Trazodone Hcl 50 Mg Tablet 1 Tab PO QHS 02/02/19 Reported Tramadol Hcl 50 Mg Tablet 75 Mg PO TID PRN 02/02/19 Reported Xarelto (Rivaroxaban) 20 Mg Tablet 20 Mg PO DAILY 02/02/19 Reported Risperdal (Risperidone) 1 Mg Tablet 1 Mg PO QHS 02/02/19 Reported Proventil Hfa Inhaler (Albuterol Sulfate) 6.7 Gm Hfa.aer.ad 1 Puff IH PRN Q4HRS PRN 02/02/19 Reported Protonix (Pantoprazole Sodium) 20 Mg Tablet.dr 40 Mg PO DAILY 02/02/19 Reported Potassium Chloride 20 Meq Tablet.er 20 Meq PO DAILY 02/02/19 Reported Miralax (Polyethylene Glycol 3350) 17 Gm Powd.pack 1 Packet PO DAILY PRN 02/02/19 Reported Pilocarpine Hcl 5 Mg Tablet 10 Mg PO TID 02/02/19 Reported Oxybutynin Chloride Er (Oxybutynin Chloride) 15 Mg Tab.er.24 1 Tab PO DAILY 02/02/19 Reported Meclizine Hcl 25 Mg Tablet 1 Tab PO TID 02/02/19 Reported Lyrica (Pregabalin) 75 Mg Capsule 1 Cap PO TID 02/02/19 Reported Loratadine 10 Mg Tablet 1 Tab PO DAILY 02/02/19 Reported Levothyroxine Sodium 175 Mcg Tablet 1 Tab PO DAILY 02/02/19 Reported Lasix (Furosemide) 20 Mg Tablet 1 Tab PO DAILY 02/02/19 Reported Hydroxyzine Hcl 25 Mg Tablet 1 Tab PO BID 02/02/19 Reported Divalproex Sodium Er (Divalproex Sodium) 500 Mg Tab.er.24h 2 Tab PO QHS 02/02/19 Reported Divalproex Sodium Er (Divalproex Sodium) 500 Mg Tab.er.24h 1 Tab PO DAILY 02/02/19 Reported Colace (Docusate Sodium) 100 Mg Capsule 1 Cap PO BID 02/02/19 Reported Celexa (Citalopram Hydrobromide) 40 Mg Tablet 1 Tab PO DAILY 02/02/19 Reported Celebrex (Celecoxib) 200 Mg Capsule 1 Cap PO DAILY 02/02/19 Reported [calcium alginate] 1 Ea TP HS 02/02/19 Reported Budesonide 0.5 Mg/2 Ml Ampul.neb 1 Vial NEB BID 02/02/19 Reported Biofreeze (Menthol) 118 Ml Gel..ml. 118 Ml TP TID 02/02/19 Reported Baclofen 10 Mg Tablet 1 Tab PO TID 02/02/19 Reported Artificial Tears Eye Drops (Dextran 70/Hypromellose) 15 Ml Drops 1 Drop EACHEYE PRN PRN 02/02/19 Reported Amlodipine Besylate 5 Mg Tablet 5 Mg PO DAILY 02/02/19 Reported Albuterol Sulfate Neb Soln (Albuterol Sulfate) 2.5 Mg/3 Ml Vial.neb 1 Vial NEB PRN Q4HRS 02/02/19 Reported Impression . IMPRESSION: 1. Acute hypoxemic respiratory failure. 2. Sepsis. 3. Toxic metabolic encephalopathy. 4. Positive urinalysis, suspect urinary tract infection. 5. Multiple allergies as indicated above. 6. Obesity. CT CHEST 02/02 1. Patchy linear airspace opacities identified in the lungs likely atelectasis or infiltrates. Follow-up to resolution. 2. Enlarged appearing mediastinal and bilateral hilar lymph nodes identified, nonspecific. Examination limited due to lack of IV contrast. Plan . UP TO CHAIR 02 ANTIBX PER ID RESP STATUS IS COMPENSATED QHS BIPAP ANTIBX PT DOES NOT WALK SAUD WASHBURN MD Feb 08, 2019 09:03
[2019-02-08] MEDS: IPRATRPIUM/ALBUTEROL 0.5/2.5MG 3 ML NEBU. NEB SCH ×2 (09:05→13:26)
--- NOTE | 2019-02-08 09:28 | PDOC4 ---
PROCEDURE Procedure At her request,I have injected her left shoulder joint under aseptic skin technique,with 2 ml of 0.25% bupivacaine solution mixed with 1 ml of depo medrol 40 mg? 1 ml solution and she tolerated the procedure satisfactorily without any side effects. FELICIANO CASILLAS MD Feb 08, 2019 09:28
[2019-02-08] MEDS ORDERED: BUPIVACAINE MPF 0.25% 10 ML VIAL. IJ ONE (09:30)
[2019-02-08] MEDS ORDERED: methylPREDNISolone ACETATE 40 MG/ML VIAL. IM ONE (09:30)
--- NOTE | 2019-02-08 10:10 | SNU/HH DC ---
DISCHARGE ORDERS DISCHARGE INFORMATION: FINAL DIAGNOSIS Problems Medical Problems: (1) Severe sepsis Status: Acute CONDITION ON DISCHARGE: Stable PENITENTIARY: SNF STAY <30 DAYS: No HOSPICE: HOSPICE: No HOSPICE EVAL & TREAT: No LTAC: ADMIT TO LTAC: No POST DISCHARGE ORDERS: ACTIVITY ORDERS: Resume previous activity DIET AFTER DISCHARGE: Cardiac TREATMENT/EQUIPMENT ORDERS: Physical Therapy For: Evalulation/Treatment DISCHARGE MEDICATIONS: Home Meds Reported Medications Lifitegrast (Xiidra) 1 Each Droperette, 1 EACH OP BID for dry eyes, DROP 02/02/19 Cholecalciferol (Vitamin D3) (Vitamin D) 5,000 Unit Capsule, 5000 UNIT PO WEEKLY for vit d deficiency, CAP 02/02/19 Acetaminophen (TYLENOL EXTRA STRENGTH) 500 Mg Tablet, 2 MG PO DAILY for pain, TAB 02/02/19 Neomy Sulf/Bacitrac Zn/Poly (Triple Antibiotic Ointment) 1 Each Oint.pack, 1 EACH TP HS for LLE with dressing changes, MISC 02/02/19 Triamcinolone Acetonide (TRIAMCINOLONE ACETONIDE 0.1% OINT) 15 Gm Oint...g., 1 DANITA TP BID for WOUND CARE, #1 TUBE MIX WITH EUCERIN DIRECTED BY PHYSICIAN 02/02/19 Trazodone Hcl (TRAZODONE HCL) 50 Mg Tablet, 1 TAB PO QHS for depression, #30 TAB 1 Refill 02/02/19 Tramadol Hcl (TRAMADOL HCL) 50 Mg Tablet, 75 MG PO TID PRN for PAIN, TAB 0 Refills 02/02/19 Rivaroxaban (XARELTO) 20 Mg Tablet, 20 MG PO DAILY for DVT LLE, TAB 02/02/19 Risperidone (RISPERDAL) 1 Mg Tablet, 1 MG PO QHS for MOOD STABILIZER, TAB 02/02/19 Albuterol Sulfate (PROVENTIL HFA INHALER) 6.7 Gm Hfa.aer.ad, 1 PUFF IH PRN Q4HRS PRN for FOR ASTHMA, INHALER 0 Refills 02/02/19 Pantoprazole Sodium (PROTONIX) 20 Mg Tablet.dr, 40 MG PO DAILY for gerd, TAB 02/02/19 Potassium Chloride (POTASSIUM CHLORIDE) 20 Meq Tablet.er, 20 MEQ PO DAILY for hypokalemia, TAB.SR 02/02/19 Polyethylene Glycol 3350 (MIRALAX) 17 Gm Powd.pack, 1 PACKET PO DAILY PRN for CONSTIPATION, #30 PACKET 3 Refills 02/02/19 Pilocarpine Hcl (PILOCARPINE HCL) 5 Mg Tablet, 10 MG PO TID for dry mouth, TAB 02/02/19 Oxybutynin Chloride (OXYBUTYNIN CHLORIDE ER) 15 Mg Tab.er.24, 1 TAB PO DAILY for urinary incontinence, #90 TAB 1 Refill 02/02/19 Meclizine Hcl (MECLIZINE HCL) 25 Mg Tablet, 1 TAB PO TID for dizziness, #90 TAB 02/02/19 Pregabalin (LYRICA) 75 Mg Capsule, 1 CAP PO TID for neuropathy, #60 CAP 1 Refill 02/02/19 Loratadine (LORATADINE) 10 Mg Tablet, 1 TAB PO DAILY for allergies, #30 TAB 5 Refills 02/02/19 Levothyroxine Sodium (LEVOTHYROXINE SODIUM) 175 Mcg Tablet, 1 TAB PO DAILY for hypothyroid, #30 TAB 5 Refills 02/02/19 Furosemide (LASIX) 20 Mg Tablet, 1 TAB PO DAILY for edema, #90 TAB 1 Refill 02/02/19 Hydroxyzine Hcl (HYDROXYZINE HCL) 25 Mg Tablet, 1 TAB PO BID for anxiety, #30 TAB 02/02/19 Divalproex Sodium (DIVALPROEX SODIUM ER) 500 Mg Tab.er.24h, 2 TAB PO QHS for bipolar, #60 TAB 02/02/19 Divalproex Sodium (DIVALPROEX SODIUM ER) 500 Mg Tab.er.24h, 1 TAB PO DAILY for bipolar , #60 TAB 02/02/19 Docusate Sodium (COLACE) 100 Mg Capsule, 1 CAP PO BID for constipation, #30 CAP 02/02/19 Citalopram Hydrobromide (CELEXA) 40 Mg Tablet, 1 TAB PO DAILY for bipolar ds, # 30 TAB 1 Refill 02/02/19 Celecoxib (CELEBREX) 200 Mg Capsule, 1 CAP PO DAILY for pain, #30 CAP 2 Refills 02/02/19 [calcium alginate] No Conflict Check, 1 EA TP HS for to abd scabs 02/02/19 Budesonide (BUDESONIDE) 0.5 Mg/2 Ml Ampul.neb, 1 VIAL NEB BID for sob, #120 ML 3 Refills 02/02/19 Menthol (BIOFREEZE) 118 Ml Gel..ml., 118 ML TP TID for elisha shoulder pain, EACH 02/02/19 Baclofen (BACLOFEN) 10 Mg Tablet, 1 TAB PO TID for muscle spasms, #90 TAB 2 Refills 02/02/19 Dextran 70/Hypromellose (ARTIFICIAL TEARS EYE DROPS) 15 Ml Drops, 1 DROP EACHEYE PRN PRN for DRY EYE, #15 ML 5 Refills 02/02/19 Amlodipine Besylate (AMLODIPINE BESYLATE) 5 Mg Tablet, 5 MG PO DAILY for htn, TAB 02/02/19 Albuterol Sulfate (ALBUTEROL SULFATE NEB SOLN) 2.5 Mg/3 Ml Vial.neb, 1 VIAL NEB PRN Q4HRS for copd, #50 VIAL 02/02/19 CHINA GOYAL III DO Feb 08, 2019 10:10
--- NOTE | 2019-02-08 10:15 | PDOC ---
PROGRESS NOTES Chief Complaint Chief Complaint BIlateral infiltrates-pneumonia SNU resident Bedbound because of acute on chronic lymphedema - neg DVT Sepsis present on admission, elevated lactate 3.7, WBC 30 UTI in an SNU resident-, complicated UTI Mixed hypercapnic hypoxic respiratory failure - BIPAP AJ on CPAP at SNU Flu negative Fevers Obesity, BMI 50 DNR History of Present Illness History of Present Illness Patient is resting comfortably in bed watching TV with her LLE elevated. She states she continues to have L shoulder pain but overall feels like she is continuing to improve. Vitals Vitals Vital Signs Date Time Temp Pulse Resp B/P (MAP) Pulse Ox O2 Delivery O2 Flow Rate FiO2 02/08/19 09:07 97 Nasal Cannula 3.0 02/08/19 08:05 66 148/86 02/08/19 07:25 98.9 20 98.9 Physical Exam Physical Exam General: Alert, Oriented X3, Cooperative, No acute distress Heart: Regular rate, Normal S1, Normal S2, No murmurs Lungs: Clear Abdomen: Normal bowel sounds, Soft, No tenderness, Other (obese) Extremities: No clubbing, No cyanosis, Other (LLE wrapped ) Skin: No breakdown, Other (Dressing C/D/I) Labs LABS Laboratory Tests Test 02/07/19 12:02 02/07/19 17:05 02/07/19 20:06 02/08/19 04:15 Glucose (Fingerstick) 133 mg/dL (70-99) 119 mg/dL (70-99) 156 mg/dL (70-99) White Blood Count 7.5 x10^3/uL (4.0-11.0) Red Blood Count 5.12 x10^6/uL (3.50-5.40) Hemoglobin 12.6 g/dL (12.0-15.5) Hematocrit 40.7 % (36.0-47.0) Mean Corpuscular Volume 79 fL (79-100) Mean Corpuscular Hemoglobin 25 pg (25-35) Mean Corpuscular Hemoglobin Concent 31 g/dL (31-37) Red Cell Distribution Width 16.0 % (11.5-14.5) Platelet Count 242 x10^3/uL (140-400) Neutrophils (%) (Auto) 65 % (31-73) Lymphocytes (%) (Auto) 21 % (24-48) Monocytes (%) (Auto) 11 % (0-9) Eosinophils (%) (Auto) 3 % (0-3) Basophils (%) (Auto) 1 % (0-3) Neutrophils # (Auto) 4.8 x10^3uL (1.8-7.7) Lymphocytes # (Auto) 1.6 x10^3/uL (1.0-4.8) Monocytes # (Auto) 0.8 x10^3/uL (0.0-1.1) Eosinophils # (Auto) 0.2 x10^3/uL (0.0-0.7) Basophils # (Auto) 0.0 x10^3/uL (0.0-0.2) Test 02/08/19 04:25 02/08/19 07:34 Erythrocyte Sedimentation Rate 49 (0-25) Sodium Level 140 mmol/L (136-145) Potassium Level 3.9 mmol/L (3.5-5.1) Chloride Level 96 mmol/L (98-107) Carbon Dioxide Level 40 mmol/L (21-32) Anion Gap 4 (6-14) Blood Urea Nitrogen 15 mg/dL (7-20) Creatinine 0.6 mg/dL (0.6-1.0) Estimated GFR (Cockcroft-Gault) 101.0 Glucose Level 151 mg/dL (70-99) Calcium Level 9.4 mg/dL (8.5-10.1) Glucose (Fingerstick) 132 mg/dL (70-99) Review of Systems Review of Systems As per above Assessment and Plan Assessmemt and Plan Problems Medical Problems: (1) Severe sepsis Status: Acute Assessment: Severe sepsis - likely respiratory and LLE cellulitis without abscess Acute hypoxic respiratory failure - resolved LLE cellulitis UTI Bilateral pulmonary infiltrates Left shoulder pain - hx of rotator cuff tear Chronic lymphedema correction patient Plan: Continue Lasix Monitor Urine output Monitor electrolytes Continue antibiotics per ID - appreciate recs BCx and UCx negative Continue QHS BiPAP per Pulmonology - appreciate recs L shoulder joint injection today per physiatry DNR - Sister is DPOA Discharge disposition: DC to LTC, discussed with case management rn. Comment Review of Relevant I have reviewed the following items katie (where applicable) has been applied. Labs Laboratory Tests Test 02/06/19 11:46 02/06/19 13:20 02/06/19 17:04 02/06/19 20:42 Glucose (Fingerstick) 138 mg/dL (70-99) 135 mg/dL (70-99) 164 mg/dL (70-99) Sodium Level 140 mmol/L (136-145) Potassium Level 4.0 mmol/L (3.5-5.1) Chloride Level 97 mmol/L (98-107) Carbon Dioxide Level 43 mmol/L (21-32) Anion Gap 0 (6-14) Blood Urea Nitrogen 12 mg/dL (7-20) Creatinine 0.6 mg/dL (0.6-1.0) Estimated GFR (Cockcroft-Gault) 101.0 Glucose Level 115 mg/dL (70-99) Calcium Level 9.0 mg/dL (8.5-10.1) Test 02/07/19 03:25 02/07/19 08:24 02/07/19 12:02 02/07/19 17:05 White Blood Count 5.9 x10^3/uL (4.0-11.0) Red Blood Count 4.71 x10^6/uL (3.50-5.40) Hemoglobin 11.7 g/dL (12.0-15.5) Hematocrit 37.2 % (36.0-47.0) Mean Corpuscular Volume 79 fL (79-100) Mean Corpuscular Hemoglobin 25 pg (25-35) Mean Corpuscular Hemoglobin Concent 32 g/dL (31-37) Red Cell Distribution Width 16.4 % (11.5-14.5) Platelet Count 215 x10^3/uL (140-400) Neutrophils (%) (Auto) 63 % (31-73) Lymphocytes (%) (Auto) 22 % (24-48) Monocytes (%) (Auto) 12 % (0-9) Eosinophils (%) (Auto) 3 % (0-3) Basophils (%) (Auto) 0 % (0-3) Neutrophils # (Auto) 3.7 x10^3uL (1.8-7.7) Lymphocytes # (Auto) 1.3 x10^3/uL (1.0-4.8) Monocytes # (Auto) 0.7 x10^3/uL (0.0-1.1) Eosinophils # (Auto) 0.2 x10^3/uL (0.0-0.7) Basophils # (Auto) 0.0 x10^3/uL (0.0-0.2) Creatine Kinase 143 U/L (26-192) Glucose (Fingerstick) 114 mg/dL (70-99) 133 mg/dL (70-99) 119 mg/dL (70-99) Test 02/07/19 20:06 02/08/19 04:15 02/08/19 04:25 02/08/19 07:34 Glucose (Fingerstick) 156 mg/dL (70-99) 132 mg/dL (70-99) White Blood Count 7.5 x10^3/uL (4.0-11.0) Red Blood Count 5.12 x10^6/uL (3.50-5.40) Hemoglobin 12.6 g/dL (12.0-15.5) Hematocrit 40.7 % (36.0-47.0) Mean Corpuscular Volume 79 fL (79-100) Mean Corpuscular Hemoglobin 25 pg (25-35) Mean Corpuscular Hemoglobin Concent 31 g/dL (31-37) Red Cell Distribution Width 16.0 % (11.5-14.5) Platelet Count 242 x10^3/uL (140-400) Neutrophils (%) (Auto) 65 % (31-73) Lymphocytes (%) (Auto) 21 % (24-48) Monocytes (%) (Auto) 11 % (0-9) Eosinophils (%) (Auto) 3 % (0-3) Basophils (%) (Auto) 1 % (0-3) Neutrophils # (Auto) 4.8 x10^3uL (1.8-7.7) Lymphocytes # (Auto) 1.6 x10^3/uL (1.0-4.8) Monocytes # (Auto) 0.8 x10^3/uL (0.0-1.1) Eosinophils # (Auto) 0.2 x10^3/uL (0.0-0.7) Basophils # (Auto) 0.0 x10^3/uL (0.0-0.2) Erythrocyte Sedimentation Rate 49 (0-25) Sodium Level 140 mmol/L (136-145) Potassium Level 3.9 mmol/L (3.5-5.1) Chloride Level 96 mmol/L (98-107) Carbon Dioxide Level 40 mmol/L (21-32) Anion Gap 4 (6-14) Blood Urea Nitrogen 15 mg/dL (7-20) Creatinine 0.6 mg/dL (0.6-1.0) Estimated GFR (Cockcroft-Gault) 101.0 Glucose Level 151 mg/dL (70-99) Calcium Level 9.4 mg/dL (8.5-10.1) Laboratory Tests Test 02/07/19 12:02 02/07/19 17:05 02/07/19 20:06 02/08/19 04:15 Glucose (Fingerstick) 133 mg/dL (70-99) 119 mg/dL (70-99) 156 mg/dL (70-99) White Blood Count 7.5 x10^3/uL (4.0-11.0) Red Blood Count 5.12 x10^6/uL (3.50-5.40) Hemoglobin 12.6 g/dL (12.0-15.5) Hematocrit 40.7 % (36.0-47.0) Mean Corpuscular Volume 79 fL (79-100) Mean Corpuscular Hemoglobin 25 pg (25-35) Mean Corpuscular Hemoglobin Concent 31 g/dL (31-37) Red Cell Distribution Width 16.0 % (11.5-14.5) Platelet Count 242 x10^3/uL (140-400) Neutrophils (%) (Auto) 65 % (31-73) Lymphocytes (%) (Auto) 21 % (24-48) Monocytes (%) (Auto) 11 % (0-9) Eosinophils (%) (Auto) 3 % (0-3) Basophils (%) (Auto) 1 % (0-3) Neutrophils # (Auto) 4.8 x10^3uL (1.8-7.7) Lymphocytes # (Auto) 1.6 x10^3/uL (1.0-4.8) Monocytes # (Auto) 0.8 x10^3/uL (0.0-1.1) Eosinophils # (Auto) 0.2 x10^3/uL (0.0-0.7) Basophils # (Auto) 0.0 x10^3/uL (0.0-0.2) Test 02/08/19 04:25 02/08/19 07:34 Erythrocyte Sedimentation Rate 49 (0-25) Sodium Level 140 mmol/L (136-145) Potassium Level 3.9 mmol/L (3.5-5.1) Chloride Level 96 mmol/L (98-107) Carbon Dioxide Level 40 mmol/L (21-32) Anion Gap 4 (6-14) Blood Urea Nitrogen 15 mg/dL (7-20) Creatinine 0.6 mg/dL (0.6-1.0) Estimated GFR (Cockcroft-Gault) 101.0 Glucose Level 151 mg/dL (70-99) Calcium Level 9.4 mg/dL (8.5-10.1) Glucose (Fingerstick) 132 mg/dL (70-99) Microbiology 02/02/19 Blood Culture - Final, Complete NO GROWTH AFTER 5 DAYS 02/02/19 Urine Culture - Final, Complete 02/02/19 Urine Culture Result 1 (RITA) - Final, Complete Medications Current Medications Ceftriaxone Sodium (Rocephin) 1 gm 1X ONCE IVP ; Start 02/02/19 at 09:45; Stop 02/02/19 at 09:46; Status UNV Sodium Chloride 1,000 ml @ 1,000 mls/hr 1X ONCE IV Last administered on at 11:46; Start 02/02/19 at 10:45; Stop 02/02/19 at 11:44; Status DC Piperacillin Sod/ Tazobactam Sod 3.375 gm/Sodium Chloride 50 ml @ 100 mls/hr 1X ONCE IV ; Start 02/02/19 at 10:45; Stop 02/02/19 at 10:45; Status DC Vancomycin HCl 250 ml @ 250 mls/hr 1X ONCE IV ; Start 02/02/19 at 10:45; Stop 02/02/19 at 11:44; Status UNV Ondansetron HCl (Zofran) 4 mg PRN Q8HRS PRN IV NAUSEA/VOMITING; Start 02/02/19 at 10:45; Stop 02/03/19 at 09:17; Status DC Sodium Chloride 1,000 ml @ 150 mls/hr Q6H40M IV Last administered on at 08:01; Start 02/02/19 at 11:00; Stop 02/03/19 at 10:59; Status DC Acetaminophen (Tylenol) 650 mg PRN Q4HRS PRN PO FEVER Last administered on 02/03at 06:31; Start 02/02/19 at 10:45; Stop 02/03/19 at 09:34; Status DC Albuterol/ Ipratropium (Duoneb) 3 ml RTQID NEB Last administered on 02/02/19at 19:32; Start 02/02/19 at 12:00; Stop 02/03/19 at 09:32; Status DC Sodium Chloride 500 ml @ 1,000 mls/hr PRN Q30MIN PRN IV SEE COMMENTS Last administered on 02/02/19at 13:07; Start 02/02/19 at 10:45 Vancomycin HCl (Vanco Per Pharmacy) 1 each PRN DAILY PRN MC SEE COMMENTS Last administered on 02/05/19at 03:05; Start 02/02/19 at 10:45; Stop 02/05/19 at 16:14 ; Status DC Piperacillin Sod/ Tazobactam Sod 4.5 gm/Sodium Chloride 100 ml @ 200 mls/hr Q6HRS IV ; Start 02/02/19 at 12:00; Status UNV Dobutamine HCl/ Dextrose 250 ml @ 0 mls/hr CONT PRN IV SEE I/O RECORD; Start at 10:45; Status Cancel Vancomycin HCl 2 gm/Sodium Chloride 500 ml @ 250 mls/hr 1X ONCE IV Last administered on 02/02/19at 11:49; Start 02/02/19 at 11:15; Stop 02/02/19 at 13:14 ; Status DC Sodium Chloride 1,000 ml @ 1,650 mls/hr Q37M IV Last administered on at 11:50; Start 02/02/19 at 11:00; Stop 02/02/19 at 12:00; Status DC Cefepime HCl (Maxipime) 2 gm Q8HRS IVP ; Start 02/02/19 at 14:00; Status UNV Piperacillin Sod/ Tazobactam Sod 4.5 gm/Sodium Chloride 100 ml @ 200 mls/hr Q6HRS IV Last administered on 02/05/19at 05:39; Start 02/02/19 at 11:15; Stop at 11:30; Status DC Vancomycin HCl 2 gm/Sodium Chloride 500 ml @ 250 mls/hr Q12H IV Last administered on 02/03/19at 13:05; Start 02/03/19 at 00:00; Stop 02/03/19 at 23:46 ; Status DC Vancomycin HCl (Vancomycin Trough Level) 1 each 1X ONCE MC Last administered on 02/03/19at 23:30; Start 02/03/19 at 23:30; Stop 02/03/19 at 23:31; Status DC Nystatin (Nystop) 1 rosa BID TP Last administered on 02/08/19at 08:28; Start 02/02 at 21:00 Insulin Human Lispro (HumaLOG) 0-5 UNITS TIDWMEALS SQ ; Start 02/02/19 at 17:30 ; Stop 02/03/19 at 09:17; Status DC Dextrose (Dextrose 50%-Water Syringe) 12.5 gm PRN Q15MIN PRN IV SEE COMMENTS; Start 02/02/19 at 17:00 Ondansetron HCl (Zofran) 4 mg PRN Q6HRS PRN IV NAUSEA/VOMITING; Start 02/03/19 at 09:30 Albuterol/ Ipratropium (Duoneb) 3 ml RTQID NEB Last administered on 02/08/19at 09 :05; Start 02/03/19 at 12:00 Calcium Carbonate/ Glycine (Tums) 500 mg PRN AFTMEALHC PRN PO INDIGESTION; Start 02/03/19 at 09:15 Guaifenesin (Robitussin Dm) 10 ml PRN Q6HRS PRN PO COUGH; Start 02/03/19 at 09: 15 Throat Lozenges (Cepacol Sore Throat Lozenge) 1 melvin PRN Q2HRS PRN PO SORE THROAT; Start 02/03/19 at 09:15 Diphenhydramine HCl (Benadryl) 25 mg PRN QHS PRN PO INSOMNIA; Start 02/03/19 at 09:15 Acetaminophen (Tylenol) 500 mg PRN Q6HRS PRN PO HEADACHE / TEMP Last administered on 02/03/19at 17:20; Start 02/03/19 at 09:30 Acetaminophen/ Codeine Phosphate (Tylenol #3) 1 tab PRN Q6HRS PRN PO PAIN MILD ; Start 02/03/19 at 09:30 Amlodipine Besylate (Norvasc) 5 mg DAILY PO Last administered on 02/08/19 08:05 ; Start 02/03/19 at 10:00 Baclofen (Lioresal) 10 mg TID PO Last administered on 02/08/19 08:03; Start at 10:00 Budesonide (Pulmicort) 0.5 mg BID NEB Last administered on 02/07/19 19:33; Start 02/03/19 at 21:00 Vitamin D (Vitamin D3) 5,000 unit WEEKLY PO Last administered on 02/03/19 11: 37; Start 02/03/19 at 10:00 Divalproex Sodium (Depakote Er) 500 mg DAILY PO Last administered on 02/08/19 08:05; Start 02/03/19 at 10:00 Divalproex Sodium (Depakote Er) 1,000 mg QHS PO Last administered on 02/07/19 21:23; Start 02/03/19 at 21:00 Docusate Sodium (Colace) 100 mg BID PO Last administered on 02/08/19 08:05; Start 02/03/19 at 10:00 Furosemide (Lasix) 20 mg DAILY PO ; Start 02/03/19 at 10:00; Stop 02/03/19 at 11 :40; Status DC Levothyroxine Sodium (Synthroid) 175 mcg DAILY07 PO Last administered on 06:37; Start 02/03/19 at 10:00 Neomycin/ Polymyxin/ Bacitracin (Triple Antibiotic Ointment) 1 pkt HS TP Last administered on 02/07/19 21:26; Start 02/03/19 at 21:00 Pregabalin (Lyrica) 75 mg TID PO Last administered on 02/08/19 08:06; Start at 10:00 Tramadol HCl (Ultram) 75 mg PRN TID PRN PO PAIN MODERATE Last administered on 09:57; Start 02/03/19 at 09:30; Stop 02/07/19 at 15:15; Status DC Trazodone HCl (Desyrel) 50 mg QHS PO Last administered on 02/07/19 21:22; Start 02/03/19 at 21:00 Triamcinolone Acetonide (Kenalog) 1 rosa BID TP Last administered on 02/08/19 08 :28; Start 02/03/19 at 21:00 Acetaminophen (Tylenol) 1,000 mg DAILY PO Last administered on 02/08/19 08:07; Start 02/03/19 at 10:30 Celecoxib (CeleBREX) 200 mg DAILY PO ; Start 02/03/19 at 10:30; Stop 02/03/19 at 11:40; Status DC Citalopram Hydrobromide (CeleXA) 40 mg DAILY PO Last administered on 02/08/19 08:06; Start 02/03/19 at 10:30 Artificial Tears (Artificial Tears) 1 drop PRN Q15MIN PRN OU DRY EYE Last administered on 02/05/19 09:07; Start 02/03/19 at 10:00 Hydroxyzine Pamoate (Vistaril) 25 mg BID PO Last administered on 02/08/19 08:06 ; Start 02/03/19 at 10:00 Non-Formulary Medication (Lifitegrast (Xiidra)) 1 each BID OP ; Start 02/03/19 at 21:00; Status UNV Cetirizine HCl (ZyrTEC) 10 mg DAILY PO Last administered on 02/08/19 08:05; Start 02/03/19 at 10:00 Meclizine HCl (Antivert) 25 mg PRN TID PRN PO DIZZINESS; Start 02/03/19 at 10: 00 Multi-Ingredient Ointment (Analgesic [place]) 1 rosa PRN QID PRN TP MUSCLE PAIN; Start 02/03/19 at 10:00; Stop 02/06/19 at 11:26; Status DC Oxybutynin Chloride (Ditropan) 5 mg [id number] PO Last administered on 02/08/19 08: 04; Start 02/03/19 at 14:00 Pantoprazole Sodium (Protonix) 40 mg DAILYAC PO Last administered on 02/08/19 08:03; Start 02/03/19 at 10:00 Pilocarpine HCl (Salagen) 10 mg TID PO Last administered on 02/08/19 08:03; Start 02/03/19 at 10:30 Polyethylene Glycol (miraLAX PACKET) 17 gm PRN DAILY PRN PO CONSTIPATION Last administered on 02/06/19 12:30; Start 02/03/19 at 09:00 Potassium Chloride (Klor-Con) 20 meq DAILY08 PO Last administered on 02/08/19 08:04; Start 02/03/19 at 10:30 Risperidone (RisperDAL) 1 mg QHS PO Last administered on 02/07/19 21:22; Start 02/03/19 at 21:00 Rivaroxaban (Xarelto) 20 mg DAILY PO Last administered on 02/08/19 08:04; Start 02/03/19 at 10:00 Non-Formulary Medication ([calcium alginate] ) 1 ea HS TP ; Start 02/03/19 at 21 :00; Status UNV Furosemide (Lasix) 40 mg 1X ONCE IVP Last administered on 02/03/19 12:13; Start 02/03/19 at 11:45; Stop 02/03/19 at 11:46; Status DC Furosemide (Lasix) 40 mg BID92 IVP Last administered on 02/08/19 08:07; Start 02/03/19 at 18:00 Ascorbic Acid (Vitamin C) 500 mg DAILY PO Last administered on 02/08/19 08:06; Start 02/03/19 at 12:00 Zinc Acetate/ Diphenhydramine (Benadryl Topical) 1 rosa TID PRN TP itchy legs; Start 02/03/19 at 11:45 Linezolid (Zyvox) 600 mg BID PO Last administered on 02/05/19 09:04; Start at 21:00; Stop 02/05/19 at 11:30; Status DC Info (Anti-Coagulation Monitoring By Pharmacy) 1 each PRN DAILY PRN MC SEE COMMENTS Last administered on 02/06/19 16:23; Start 02/03/19 at 13:00 Lactobacillus Rhamnosus (Culturelle) 1 cap BID PO Last administered on 08:04; Start 02/03/19 at 21:00 Vancomycin HCl 2 gm/Sodium Chloride 500 ml @ 250 mls/hr Q8H IV Last administered on 3/29/19at 09:02; Start 02/04/19 at 00:00; Stop 02/05/19 at 11:30 ; Status DC Vancomycin HCl (Vancomycin Trough Level) 1 each 1X ONCE MC Last administered on 02/04/19at 23:30; Start 02/04/19 at 23:30; Stop 02/04/19 at 23:31; Status DC Potassium Chloride (Klor-Con) 20 meq STK-MED ONCE PO ; Start 02/03/19 at 09:00; Stop 02/05/19 at 10:15; Status DC Potassium Chloride (Klor-Con) 20 meq STK-MED ONCE PO ; Start 02/04/19 at 09:00; Stop 02/05/19 at 10:16; Status DC Potassium Chloride (Klor-Con) 20 meq STK-MED ONCE PO ; Start 02/05/19 at 09:00; Stop 02/05/19 at 10:16; Status DC Daptomycin 570 mg/ Sodium Chloride 50 ml @ 100 mls/hr Q24H IV Last administered on 02/07/19at 12:44; Start 02/05/19 at 12:00; Stop 02/07/19 at 15:15 ; Status DC Piperacillin Sod/ Tazobactam Sod 3.375 gm/Sodium Chloride 50 ml @ 100 mls/hr Q6HRS IV Last administered on 02/07/19at 12:45; Start 02/05/19 at 12:00; Stop at 15:15; Status DC Micafungin Sodium 100 mg/Dextrose 100 ml @ 100 mls/hr Q24H IV Last administered on 02/07/19at 12:46; Start 02/05/19 at 12:00; Stop 02/07/19 at 15:15 ; Status DC Multi-Ingredient Ointment (Analgesic [place]) 1 rosa PRN QID PRN TP MUSCLE PAIN Last administered on 02/07/19at 21:26; Start 02/06/19 at 11:30 Lidocaine (Lidoderm) 1 patch PRN DAILY PRN TD L shoulder pain Last administered on 02/06/19at 11:38; Start 02/06/19 at 11:30 Amoxicillin/ Clavulanate Potassium (Augmentin 875/ 125mg) 1 tab BID PO Last administered on 02/08/19at 08:04; Start 02/07/19 at 21:00 Fluconazole (Diflucan) 200 mg DAILY PO Last administered on 02/08/19at 08:04; Start 02/08/19 at 09:00 Linezolid (Zyvox) 600 mg BID PO Last administered on 02/08/19at 08:06; Start at 21:00 Methylprednisolone Acetate (DEPO-Medrol 40MG VIAL) 40 mg 1X ONCE IM Last administered on 02/08/19at 09:21; Start 02/08/19 at 09:30; Stop 02/08/19 at 09:31; Status DC Bupivacaine HCl (Sensorcaine-Mpf 0.25%) 10 ml 1X ONCE IJ Last administered on 02/08/19at 09:21; Start 02/08/19 at 09:30; Stop 02/08/19 at 09:31; Status DC Active Scripts Active Reported Xiidra (Lifitegrast) 1 Each Droperette 1 Each OP BID Vitamin D (Cholecalciferol (Vitamin D3)) 5,000 Unit Capsule 5,000 Unit PO WEEKLY Tylenol Extra Strength (Acetaminophen) 500 Mg Tablet 2 Mg PO DAILY Triple Antibiotic Ointment (Neomy Sulf/Bacitrac Zn/Poly) 1 Each Oint.pack 1 Each TP HS Triamcinolone Acetonide 0.1% Oint (Triamcinolone Acetonide) 15 Gm Oint...g. 1 Rosa TP BID MIX WITH EUCERIN DIRECTED BY PHYSICIAN Trazodone Hcl 50 Mg Tablet 1 Tab PO QHS Tramadol Hcl 50 Mg Tablet 75 Mg PO TID PRN Xarelto (Rivaroxaban) 20 Mg Tablet 20 Mg PO DAILY Risperdal (Risperidone) 1 Mg Tablet 1 Mg PO QHS Proventil Hfa Inhaler (Albuterol Sulfate) 6.7 Gm Hfa.aer.ad 1 Puff IH PRN Q4HRS PRN Protonix (Pantoprazole Sodium) 20 Mg Tablet.dr 40 Mg PO DAILY Potassium Chloride 20 Meq Tablet.er 20 Meq PO DAILY Miralax (Polyethylene Glycol 3350) 17 Gm Powd.pack 1 Packet PO DAILY PRN Pilocarpine Hcl 5 Mg Tablet 10 Mg PO TID Oxybutynin Chloride Er (Oxybutynin Chloride) 15 Mg Tab.er.24 1 Tab PO DAILY Meclizine Hcl 25 Mg Tablet 1 Tab PO TID Lyrica (Pregabalin) 75 Mg Capsule 1 Cap PO TID Loratadine 10 Mg Tablet 1 Tab PO DAILY Levothyroxine Sodium 175 Mcg Tablet 1 Tab PO DAILY Lasix (Furosemide) 20 Mg Tablet 1 Tab PO DAILY Hydroxyzine Hcl 25 Mg Tablet 1 Tab PO BID Divalproex Sodium Er (Divalproex Sodium) 500 Mg Tab.er.24h 2 Tab PO QHS Divalproex Sodium Er (Divalproex Sodium) 500 Mg Tab.er.24h 1 Tab PO DAILY Colace (Docusate Sodium) 100 Mg Capsule 1 Cap PO BID Celexa (Citalopram Hydrobromide) 40 Mg Tablet 1 Tab PO DAILY Celebrex (Celecoxib) 200 Mg Capsule 1 Cap PO DAILY [calcium alginate] 1 Ea TP HS Budesonide 0.5 Mg/2 Ml Ampul.neb 1 Vial NEB BID Biofreeze (Menthol) 118 Ml Gel..ml. 118 Ml TP TID Baclofen 10 Mg Tablet 1 Tab PO TID Artificial Tears Eye Drops (Dextran 70/Hypromellose) 15 Ml Drops 1 Drop EACHEYE PRN PRN Amlodipine Besylate 5 Mg Tablet 5 Mg PO DAILY Albuterol Sulfate Neb Soln (Albuterol Sulfate) 2.5 Mg/3 Ml Vial.neb 1 Vial NEB PRN Q4HRS Vitals/I & O Vital Sign - Last 24 Hours 02/07/19 02/07/19 02/07/19 02/07/19 11:00 11:39 15:00 19:36 Temp 97.8 98.1 97.8 98.1 Pulse 62 64 Resp 18 17 B/P (MAP) 151/84 (106) 139/61 (87) Pulse Ox 97 94 94 96 O2 Delivery Room Air Nasal Cannula Nasal Cannula Nasal Cannula O2 Flow Rate 4.0 4.0 3.0 02/07/19 02/07/19 02/07/19 02/07/19 19:43 19:45 20:00 23:06 Temp 97.9 97.9 Pulse 66 Resp 20 B/P (MAP) 149/77 (101) Pulse Ox 96 93 O2 Delivery Nasal Cannula Nasal Cannula Nasal Cannula BiPAP/CPAP O2 Flow Rate 3.0 4.0 4.0 3/31/19 4/1/19 4/1/19 4/1/19 23:58 02:32 03:25 05:20 Temp 98.1 98.0 98.1 98.0 Pulse 64 63 B/P (MAP) 157/77 (103) 138/78 (98) Pulse Ox 93 93 O2 Delivery Nasal Cannula BiPAP/CPAP Nasal Cannula BiPAP/CPAP O2 Flow Rate 4.0 4.0 02/08/19 02/08/19 02/08/19 02/08/19 07:25 08:00 08:05 09:07 Temp 98.9 98.9 Pulse 66 66 Resp 20 B/P (MAP) 148/86 (106) 148/86 Pulse Ox 96 97 O2 Delivery Nasal Cannula Nasal Cannula Nasal Cannula O2 Flow Rate 4.0 4.0 3.0 Intake and Output 02/07/19 02/07/19 02/08/19 14:59 22:59 06:59 Intake Total 400 ml 250 ml Output Total 3400 ml 3000 ml 250 ml Balance -3400 ml -2600 ml 0 ml CHINA GOYAL III DO Feb 08, 2019 10:15
[2019-02-08 11:28] VITALS: BP 127/79
--- NOTE | 2019-02-08 14:52 | RAD ---
Pelvis, single view, 02/08/2019: HISTORY: Pain No fracture or dislocation is identified. The hip joint spaces are fairly well-maintained with only mild marginal spurring. There is a moderate amount gas and stool in the colon. IMPRESSION: No acute bony abnormality is detected. Electronically signed by: Waqar Coughlin MD (02/08/2019 2:49 PM) [facility]
--- NOTE | 2019-02-08 15:13 | NUR ---
HELENA following pt. HELENA phoned and faxed orders to [facility], phone: [phone], fax: [phone]. Pt will transport via facility arranged stretcher transport at 1600. Packet on chart. HELENA attempted to leave a voice mail to pt's sister but phone is not working. Discussed with RN.
--- NOTE | 2019-02-08 19:51 | DS ---
DATE OF DISCHARGE: 02/08/2019 ADMISSION DIAGNOSES: Sepsis secondary to left lower extremity cellulitis and respiratory failure. DISCHARGE DIAGNOSIS: Resolving status post sepsis, resolving respiratory failure, history of obesity, hirsutism and hypertension. CONSULTS: Dr. Alfonso Mitchell, Dr. Jackson, Pulmonary and Dr. Rodas. PROCEDURES: Left shoulder injection. HOSPITAL COURSE: The patient is a pleasant middle-aged male that presented with left lower extremity cellulitis, which caused sepsis. He also had respiratory failure. He was admitted. He was placed on BiPAP, DuoNeb, IV antibiotics, physical therapy, occupational therapy. The above consults were obtained. We also injected the shoulder. Over the past few days, he has returned to his baseline. PHYSICAL EXAMINATION: I saw him and examined this morning. HEART: His heart tones were normal. LUNGS: Clear. ABDOMEN: Soft. EXTREMITIES: Left lower extremity is wrapped. ASSESSMENT AND PLAN: Resolving sepsis secondary to cellulitis. The patient is being discharged back to his long-term care facility. DISPOSITION: Long-term care. ACTIVITY: As tolerated. DIET: Low sodium. MEDICATIONS: Please see the MRAD. Total time 34 minutes. MARCIEL Anni GOYAL DO DR: HUGO/ted JOB#: [id number] / [id number]
--- NOTE | 2019-02-09 01:42 | CONS ---
DATE OF CONSULTATION: 02/08/2019 ATTENDING PHYSICIAN: Dr. Patterson The patient was seen at the request of Dr. Cage for evaluation about her left shoulder pain. HISTORY OF PRESENT ILLNESS: This is a 63-year-old female admitted on 02/02/2019 as per transfer from [facility] where she has been a resident for a while. The patient admitted with weakness and fevers, has been happening for about few days. The patient with associated nausea. The patient appeared septic in the Emergency Room with lactic acid 3.9, tachycardia. White cell count of 30,000. The patient with known obesity, hirsutism, family history of hypertension. The patient does not do that much walking. When she walks using a walker with wheelchair behind her, she admits her knees buckle on her while she is walking. The patient had chest x-ray, which showed bilateral pneumonia. THE PATIENT WITH KNOWN ALLERGY TO STATINS, AZITHROMYCIN, CEFTRIAXONE, CIPRO, CLINDAMYCIN, FORMOTEROL, LASIX, LORAZEPAM, MORPHINE, MUPIROCIN, SULFUR. The patient admits severe pain in left shoulder. The patient since admission being treated with diagnoses of acute hypoxic respiratory failure, sepsis, toxic metabolic encephalopathy, positive urinalysis, probably urinary tract infection, left lower extremity cellulitis, chronic lymphedema. The patient had CT scan of left lower extremity, which revealed mild fat stranding in the soft tissues of left lateral hip region within the subcutaneous region and left medial buttock region along the medial thigh and medial and anterior lower leg and dorsal foot. The subcutaneous region likely cellulitis or edema without evidence of any focal fluid collection. Lower extremity ultrasound done on 02/03/2019 was negative for any deep vein thrombosis. CT scan of the chest done on 02/03/2019 revealed patchy linear airspace opacities in the lungs, likely atelectasis or infiltrates, enlarged appearing mediastinal and bilateral hilar lymph nodes, nonspecific. Chest x-ray done on the day of admission revealed bilateral infiltrates. PHYSICAL EXAMINATION: Today revealed a middle-aged female. She is alert, oriented to place and person, follows commands appropriately. The patient had crepitus on attempts at range of motion of left shoulder with weakness of left rotator cuff muscles and significant pain on attempted range of motion of left shoulder. She also had painfully limited movements of her knees with crepitus on range of motion. She had edema of her lower extremities. Overall, she had 4-/5 grade muscle strength with relatively increased weakness in left shoulder girdle muscles. Deep tendon reflexes are decreased overall with absent knee and ankle jerks. She had equal perception of touch and pinprick sensation bilaterally. She had somewhat overgrown toenails. The patient requires maximal help with transfers and some help with bed mobility. She had dressing to her left leg. ASSESSMENT: Mobility and self-care limitation in a patient with deconditioned state from recent hospitalization for cellulitis and bilateral pulmonary infiltrates in a patient with known chronic lower extremity lymphedema, obesity, degenerative joint disease of both knees and left shoulder, peripheral neuropathy, obesity. The patient with known hypertension. RECOMMENDATIONS: To proceed with injecting her left shoulder with Depo-Medrol and Marcaine solution. She had some allergy to inhalation steroids and I spoke to the pharmacy and the patient agrees to have the cortisone injection, to also consider injecting her knees to help ease her pain that might help with her mobility, to also consider MRI scan of her knees to rule out any internal derangement as she admits buckling of the knees while up walking with a walker. Dr. Cage, appreciate asking me to participate in the care of this interesting patient. I will be glad to follow her with you as needed for her rehabilitation. FELICIANO CASILLAS MD DR: BETITO/ted JOB#: [id number] / [id number]
== END 2019-02-08 16:30 | DRG 871 ==
LOC: ER 09:21 → 6 SOUTH 10:35
PROVIDERS: ADMIT Internal Medicine; ATTEND Internal Medicine
PROC: 5A09357 Assistance with Respiratory Ventilation, Less than 24 Consecutive Hours, Continuous Positive Airway Pressure (ICD-10-PCS; principal; 2019-02-02)
PROC: 5A09357 Assistance with Respiratory Ventilation, Less than 24 Consecutive Hours, Continuous Positive Airway Pressure (ICD-10-PCS; 2019-02-03)
PROC: 5A09357 Assistance with Respiratory Ventilation, Less than 24 Consecutive Hours, Continuous Positive Airway Pressure (ICD-10-PCS; 2019-02-04)
PROC: 5A09357 Assistance with Respiratory Ventilation, Less than 24 Consecutive Hours, Continuous Positive Airway Pressure (ICD-10-PCS; 2019-02-05)
PROC: 5A09357 Assistance with Respiratory Ventilation, Less than 24 Consecutive Hours, Continuous Positive Airway Pressure (ICD-10-PCS; 2019-02-06)
PROC: 5A09357 Assistance with Respiratory Ventilation, Less than 24 Consecutive Hours, Continuous Positive Airway Pressure (ICD-10-PCS; 2019-02-07)
PROC: 5A09357 Assistance with Respiratory Ventilation, Less than 24 Consecutive Hours, Continuous Positive Airway Pressure (ICD-10-PCS; 2019-02-08)
PROC: 3E0U33Z Introduction of Anti-inflammatory into Joints, Percutaneous Approach (ICD-10-PCS; 2019-02-08)
PROC: 3E0U3BZ Introduction of Anesthetic Agent into Joints, Percutaneous Approach (ICD-10-PCS; 2019-02-08)
DX: A41.9 Sepsis, unspecified organism (principal); G92 Toxic encephalopathy; J18.9 Pneumonia, unspecified organism; J96.01 Acute respiratory failure with hypoxia; J96.02 Acute respiratory failure with hypercapnia; E87.1 Hypo-osmolality and hyponatremia; N39.0 Urinary tract infection, site not specified; L03.116 Cellulitis of left lower limb; Z68.43 Body mass index [BMI] 50.0-59.9, adult; R65.20 Severe sepsis without septic shock; I89.0 Lymphedema, not elsewhere classified; E66.9 Obesity, unspecified; G47.33 Obstructive sleep apnea (adult) (pediatric); I10 Essential (primary) hypertension; K59.00 Constipation, unspecified; R73.9 Hyperglycemia, unspecified; G62.9 Polyneuropathy, unspecified; M17.0 Bilateral primary osteoarthritis of knee; M19.012 Primary osteoarthritis, left shoulder; Z66 Do not resuscitate; Z88.8 Allergy status to other drugs, medicaments and biological substances; Z79.899 Other long term (current) drug therapy; Z99.3 Dependence on wheelchair; Z74.01 Bed confinement status; Z82.49 Family history of ischemic heart disease and other diseases of the circulatory system; Z88.1 Allergy status to other antibiotic agents; Z88.6 Allergy status to analgesic agent
CPT/HCPCS: 36415; 36600; 71045; 71250; 72170; 73700; 80048; 80053; 80202; 81001; 82550; 82805; 82962; 83605; 84145; 84484; 85007; 85025; 85651; 87040; 87086; 87641; 87804; 93005; 93971; 94640; 94660; 94760; 96365; 96366; 99291; J0878; J1030; J1815; J1940; J2248; J2543; J3370; J3490; J7030; J7040; J7620; J7626; Q0177; 97530; 97535

== ENCOUNTER 2019-07-18 12:00 | Inpatient (IN) | payer MEDICARE, MEDICAID ==
[~2019-07-18] VITALS: Ht 167.6 cm; Wt 140.7 kg
[~2019-07-18 12:00] MED LIST: ACET500T33 PO; ALBU2.5V5 NEB; ALBU2.5V8 IH; AMLO5TAB10 PO; BACL10TA PO; BUDE0.5A NEB; CALCIUM ALGINATE TP; CELE200C PO; CHOL500051 PO; CITA40TA12 PO; DEXT15DR5 EACHEYE; DIVA500T17 PO; DOCU-109 PO; FURO-69 PO; HYDR25TA PO; LEVO175T5 PO; LIFI1DRO OP; LORA10TA3 PO; MECL25TA3 PO; MENT118G TP; NEOM1OIN6 TP; OXYB15TA PO; PANT20TA2 PO; PILO5TAB16 PO; POLY17PO29 PO; POTA20TA82 PO; PREG75CA PO; RISP1TAB43 PO; RIVA20TA2 PO; TRAM50TA PO; TRAZ-118 PO; TRIA15OI TP
[2019-07-18] MEDS ORDERED: IV NORMAL SALINE 1000ML BAG 1,000 ML IV SCH (12:25)
--- NOTE | 2019-07-18 12:34 | PHYS DOC ---
Past Medical History Past Medical History: Anxiety, Constipation, Diabetes-Type II, GERD, High Cholesterol, Hypertension, Hypothyroid Additional Past Medical Histor: BIPOLAR, MANIAC, AJ, OA, HOME OXYGEN 2 LNC Alcohol Use: None Drug Use: None Adult General Chief Complaint Chief Complaint: FEVER HPI HPI Patient is a 64-year-old female who presents to the emergency department via EMS. She is a resident of a nursing facility, and reportedly has been having fevers, to 104 this morning at the nursing facility (she was given acetaminophen prior to arrival), and has also had increasing lethargy, cough, possible shortness of breath and hypoxia, on her normal 2 liters of oxygen via nasal cannula. She is currently on 4 L of oxygen via nasal cannula with oxygen saturation in the mid 90s. The patient denies any acute pain at this time. She does exhibit a cough. She denies any headache, there are no alleviating or exacerbating factors to her symptoms. The patient does not do much physical activity at baseline, so she is unable to determine if there are any exacerbating or alleviating factors to her symptoms. EMS also reported that the nursing facility reported increased work of breathing at the facility. She reportedly had a chest x-ray done earlier at the facility, I reviewed the report which was positive for bronchitis, imaging done yesterday. Review of Systems Review of Systems Constitutional: Reports fever and lethargy.[] Eyes: Denies change in visual acuity, redness, or eye pain [] HENT: Denies nasal congestion or sore throat [] Respiratory: Reports cough and shortness of breath.[] Cardiovascular: The patient denies any chest pain, palpitations, or orthopnea [] GI: Denies abdominal pain, nausea, vomiting, bloody stools or diarrhea [] : Denies dysuria or hematuria [] Musculoskeletal: Denies back pain or joint pain [] Integument: Denies rash or skin lesions [] Neurologic: Denies headache, focal weakness or sensory changes [] Endocrine: Denies polyuria or polydipsia [] All other systems were reviewed and found to be within normal limits, except as documented in this note. Current Medications Current Medications Current Medications Medications (Trade) Dose Ordered Sig/Holden Start Time Stop Time Status Last Admin Dose Admin Albuterol/ Ipratropium (Duoneb) 3 ml 1X ONCE 07/18/19 12:45 07/18/19 12:46 DC Piperacillin Sod/ Tazobactam Sod 3.375 gm/Sodium Chloride 50 ml @ 100 mls/hr 1X ONCE 07/18/19 12:45 07/18/19 13:14 DC 07/18/19 13:14 100 MLS/HR Sodium Chloride 1,000 ml @ 100 mls/hr Q10H 07/18/19 12:25 07/18/19 22:24 07/18/19 13:14 100 MLS/HR Vancomycin HCl 250 ml @ 250 mls/hr 1X ONCE 07/18/19 12:45 07/18/19 13:44 DC 07/18/19 13:58 250 MLS/HR Allergies Allergies Allergies Coded Allergies Type Severity Reaction Last Updated Verified Qlafqog-Xsv-Tui Reductase Inhibitor Allergy Intermediate 02/02/19 Yes azithromycin Allergy Intermediate 02/02/19 Yes budesonide Allergy Intermediate 02/02/19 Yes ceftriaxone Allergy Intermediate 02/02/19 Yes ciprofloxacin Allergy Intermediate 02/02/19 Yes clindamycin Allergy Intermediate 02/02/19 Yes formoterol Allergy Intermediate 02/02/19 Yes latex Allergy Intermediate 02/02/19 Yes lorazepam Allergy Intermediate 02/02/19 Yes morphine Allergy Intermediate 02/02/19 Yes mupirocin Allergy Intermediate 02/02/19 Yes sulfur dioxide Allergy Intermediate 02/02/19 Yes Physical Exam Physical Exam PHYSICAL EXAM: CONSTITUTIONAL: Well developed, well nourished HEAD: normocephalic, atraumatic EENT: PERRL, EOMI. Conjunctivae normal color, sclerae non-icteric; moist mucous membranes. NECK: Supple, non-tender; no meningismus. LUNGS: There are scattered rhonchi in all lung white, mildly increased work of breathing, unlabored. Normal air movement. HEART: Regular rate and rhythm, no murmur CHEST: No deformity; non-tender ABDOMEN: The abdomen is soft, and non-tender, no masses or bruits. EXTREM: Normal ROM; no deformity, no calf tenderness. Normal pulses palpable in all extremities. There is mild bilateral pedal edema. SKIN: No rash; no diaphoresis NEURO: Alert; normal speech and cognition; CN's grossly intact; strength grossly intact without focal deficit. BACK: No CVA TTP. Current Patient Data Vital Signs Vital Signs Date Time Temp Pulse Resp B/P (MAP) Pulse Ox O2 Delivery O2 Flow Rate FiO2 07/18/19 12:46 94 Nasal Cannula 4.0 07/18/19 12:15 99.0 80 22 140/64 (89) 99.0 Lab Values Laboratory Tests Test 07/18/19 13:00 White Blood Count 7.8 x10^3/uL (4.0-11.0) Red Blood Count 4.69 x10^6/uL (3.50-5.40) Hemoglobin 13.0 g/dL (12.0-15.5) Hematocrit 39.2 % (36.0-47.0) Mean Corpuscular Volume 84 fL (79-100) Mean Corpuscular Hemoglobin 28 pg (25-35) Mean Corpuscular Hemoglobin Concent 33 g/dL (31-37) Red Cell Distribution Width 14.5 % (11.5-14.5) Platelet Count 174 x10^3/uL (140-400) Neutrophils (%) (Auto) 79 % (31-73) H Lymphocytes (%) (Auto) 11 % (24-48) L Monocytes (%) (Auto) 10 % (0-9) H Eosinophils (%) (Auto) 1 % (0-3) Basophils (%) (Auto) 0 % (0-3) Neutrophils # (Auto) 6.1 x10^3/uL (1.8-7.7) Lymphocytes # (Auto) 0.8 x10^3/uL (1.0-4.8) L Monocytes # (Auto) 0.8 x10^3/uL (0.0-1.1) Eosinophils # (Auto) 0.1 x10^3/uL (0.0-0.7) Basophils # (Auto) 0.0 x10^3/uL (0.0-0.2) Prothrombin Time 13.8 SEC (11.7-14.0) Prothrombin Time INR 1.1 (0.8-1.1) Sodium Level 139 mmol/L (136-145) Potassium Level 4.6 mmol/L (3.5-5.1) Chloride Level 100 mmol/L (98-107) Carbon Dioxide Level 38 mmol/L (21-32) H Anion Gap 1 (6-14) L Blood Urea Nitrogen 13 mg/dL (7-20) Creatinine 0.6 mg/dL (0.6-1.0) Estimated GFR (Cockcroft-Gault) 100.6 BUN/Creatinine Ratio 22 (6-20) H Glucose Level 95 mg/dL (70-99) Lactic Acid Level 1.1 mmol/L (0.4-2.0) Calcium Level 9.2 mg/dL (8.5-10.1) Magnesium Level 1.5 mg/dL (1.8-2.4) L Total Bilirubin 0.4 mg/dL (0.2-1.0) Aspartate Amino Transferase (AST) 14 U/L (15-37) L Alanine Aminotransferase (ALT) 12 U/L (14-59) L Alkaline Phosphatase 97 U/L (46-116) Troponin I Quantitative 0.050 ng/mL (0.000-0.055) FR-Nls-G-Type Natriuretic Peptide 2328 pg/mL (0-124) H Total Protein 7.3 g/dL (6.4-8.2) Albumin 2.6 g/dL (3.4-5.0) L Albumin/Globulin Ratio 0.6 (1.0-1.7) L Laboratory Tests 07/18/19 13:00 Laboratory Tests 07/18/19 13:00 EKG EKG []Normal sinus rhythm at a rate of 81 beats for minute, left axis deviation, probable left anterior fascicular block, without any acute ischemic ST/T changes. Radiology/Procedures Radiology/Procedures [PROCEDURE: PORTABLE CHEST 1V AP portable chest radiograph 07/28/2019 Clinical History: Cough and shortness of breath. An AP erect portable digital radiograph of the chest was obtained. Comparison study is dated 02/02/2019. The cardiac silhouette is mildly enlarged. The thoracic aorta is tortuous. Atherosclerotic calcification thoracic aorta is seen. Left midlung subsegmental atelectasis is noted. Prominence of the pulmonary vasculature is seen suggesting mild CHF. There are probable small bilateral pleural effusions. No pneumothorax is seen. The osseous structures are unchanged. IMPRESSION: 1. Left midlung subsegmental atelectasis. 2. Findings suggesting mild CHF. ] Course & Med Decision Making Course & Med Decision Making Pertinent Labs and Imaging studies reviewed. (See chart for details) []2:25 PM:The patient's condition remains stable. I spoke with the hospitalist, who accepted the patient to the hospital for further evaluation and treatment. Dragon Disclaimer Dragon Disclaimer This electronic medical record was generated, in whole or in part, using a voice recognition dictation system. Departure Departure Impression: Primary Impression: Dyspnea Disposition: ADMITTED INPATIENT Admitting Physician: ELVIRA Condition: STABLE Referrals: NO PCP (PCP) ALYSSA URBANO MD Jul 18, 2019 12:33
[2019-07-18] MEDS ORDERED: IPRATRPIUM/ALBUTEROL 0.5/2.5MG 3 ML NEBU. NEB ONE (12:45)
[2019-07-18] MEDS ORDERED: VANCOMYCIN 1GM IVPB FOR OMNI 250 ML IV ONE (12:45)
[2019-07-18] MEDS ORDERED: PIPERACILLIN/TAZOBACTAM 3.375 GM in IV NORMAL SALINE 50ML 50 ML IV ONE (12:45)
[2019-07-18 13:22] LABS: BASO % 0 % (0-3); EOS # 0.1 x10^3/uL (0.0-0.7); EOS % 1 % (0-3); HEMATOCRIT 39.2 % (36.0-47.0); LYMPH # 0.8 x10^3/uL (1.0-4.8); LYMPH % 11 % (24-48); MEAN CORPUSCULAR HEMOGLOBIN 28 pg (25-35); MEAN CORPUSCULAR HGB CONC 33 g/dL (31-37); MEAN CORPUSCULAR VOLUME 84 fL (79-100); MONO # 0.8 x10^3/uL (0.0-1.1); MONO % 10 % (0-9); NEUT # 6.1 x10^3/uL (1.8-7.7); NEUT % 79 % (31-73); PLATELET COUNT 174 x10^3/uL (140-400); RED BLOOD COUNT 4.69 x10^6/uL (3.50-5.40); RED CELL DISTRIBUTION WIDTH 14.5 % (11.5-14.5); WHITE BLOOD COUNT 7.8 x10^3/uL (4.0-11.0)
[2019-07-18 13:31] LABS: CALCIUM 9.2 mg/dL (8.5-10.1); CREATININE 0.6 mg/dL (0.6-1.0); GFR 100.6; POTASSIUM 4.6 mmol/L (3.5-5.1)
[2019-07-18 13:34] LABS: PROTHROMBIN TIME PATIENT 13.8 SEC (11.7-14.0)
[2019-07-18 13:37] LABS: ALBUMIN 2.6 g/dL (3.4-5.0); ALBUMIN/GLOBULIN RATIO 0.6 (1.0-1.7); MAGNESIUM 1.5 mg/dL (1.8-2.4); TOTAL BILIRUBIN 0.4 mg/dL (0.2-1.0); TOTAL PROTEIN 7.3 g/dL (6.4-8.2)
--- NOTE | 2019-07-18 13:40 | RAD ---
AP portable chest radiograph 07/28/2019 Clinical History: Cough and shortness of breath. An AP erect portable digital radiograph of the chest was obtained. Comparison study is dated 02/02/2019. The cardiac silhouette is mildly enlarged. The thoracic aorta is tortuous. Atherosclerotic calcification thoracic aorta is seen. Left midlung subsegmental atelectasis is noted. Prominence of the pulmonary vasculature is seen suggesting mild CHF. There are probable small bilateral pleural effusions. No pneumothorax is seen. The osseous structures are unchanged. IMPRESSION: 1. Left midlung subsegmental atelectasis. 2. Findings suggesting mild CHF. Electronically signed by: Barry Dowling MD (07/18/2019 1:37 PM) [facility]
[2019-07-18] MEDS ORDERED: FUROSEMIDE 40 MG/4 ML VIAL. IVP ONE (14:45)
[2019-07-18 15:24] LABS: BILIRUBIN,URINE NEGATIVE (NEG); CLARITY,URINE TURBID; COLOR,URINE YELLOW; NITRITE,URINE POSITIVE (NEG); PH,URINE 5.5; PROTEIN,URINE 30 mg/dL (NEG-TRACE); UROBILINOGEN,URINE 0.2 mg/dL (0.2 mg/dL)
[2019-07-18 15:37] LABS: BACTERIA,URINE MANY /HPF (0-FEW); RBC,URINE >40 /HPF (0-2); SQUAMOUS EPITHELIAL CELL,UR FEW /LPF; WBC,URINE TNTC /HPF (0-4)
[2019-07-18] MEDS ORDERED: POLYETHYLENE GLYCOL 3350 17 GM PACKET. PO PRN (16:15)
[2019-07-18] MEDS ORDERED: ALBUTEROL SULFATE 2.5 MG/3 ML NEBU. NEB SCH (16:15)
[2019-07-18 16:19] VITALS: BP 129/60
[2019-07-18] MEDS ORDERED: MAGNESIUM SULFATE 4GM 100 ML IV ONE (16:30)
[2019-07-18 16:32] VITALS: BP 136/110
[2019-07-18 16:39] LABS: VAL ACID 53 mcg/mL (50-100)
[2019-07-18] MEDS ORDERED: IV DEXTROSE 5% 250 ML BAG. IV PRN (16:45)
[2019-07-18] MEDS ORDERED: DEXTROSE 50% 25 GM / 50ML DISP.SYRIN. IV PRN (16:45)
--- NOTE | 2019-07-18 16:45 | PDOC1 ---
History and Physical Date of Admission Date of Admission DATE: 07/18/19 TIME: 16:03 Identification/Chief Complaint Chief Complaint Fever Source Source: Patient History of Present Illness History of Present Illness Ms Hartley is a 63 yo SNF resident, wheelchair bound, w/ PMHx Bipolar Disorder, COPD on 2l NCO2, AJ, Anxiety, Constipation, Diabetes-Type II, GERD, High Ch olesterol, Hypertension, Hypothyroid who was brought in by jail staff as she was lethargic with altered mental status. The patient had cough, congestion, fever, with increasing O2 requirements. Reportedly has been having fevers, to 104.1F this morning at the nursing facility (she was given acetaminophen prior to arrival), 102.4F on EMS arrival, given more tylenol then. She also had increasing lethargy, cough, possible shortness of breath and hypoxia, on her normal 2 liters of oxygen via nasal cannula. She is currently on 4 L of oxygen via nasal cannula with oxygen saturation in the mid 90s. She also c/o diffuse body aches and joint pain in lower extremities as well as dysuria. Had CXR yesterday at [facility] that was read as bronchitis. Was started on IV vancomycin and Zosyn. Chest x-ray showed bilateral congestion, read as mild CHF and left midlung subsegmental atelectasis. She was given IV lasix in the ED as well. Labs notable for HCO3 of 38, Mag of 1.5, BNP of 2328 Past Medical History Cardiovascular: HTN Pulmonary: COPD, Other (Pulm HTN) GI: Constipation, GERD Heme/Onc: No pertinent hx Hepatobiliary: No pertinent hx Psych: Anxiety, Bipolar, Depression, Psychosis Rheumatologic: No pertinent hx Infectious disease: No pertinent hx ENT: No pertinent hx Renal/: No pertinent hx Endocrine: Diabetes Dermatology: No pertinent hx Past Surgical History Past Surgical History: Other Family History Family History: Family History Unknown Social History Smoke: No ALCOHOL: none Drugs: None Current Problem List Problem List Problems Medical Problems: (1) Dyspnea Status: Acute Current Medications Current Medications Current Medications Sodium Chloride 1,000 ml @ 100 mls/hr Q10H IV Last administered on 07/18/19at 13:14; Start 07/18/19 at 12:25; Stop 07/18/19 at 22:24 Piperacillin Sod/ Tazobactam Sod 3.375 gm/Sodium Chloride 50 ml @ 100 mls/hr 1X ONCE IV Last administered on 07/18/19at 13:14; Start 07/18/19 at 12:45; Stop 07/18/19 at 13:14; Status DC Vancomycin HCl 250 ml @ 250 mls/hr 1X ONCE IV Last administered on 07/18/19at 13:58; Start 07/18/19 at 12:45; Stop 07/18/19 at 13:44; Status DC Albuterol/ Ipratropium (Duoneb) 3 ml 1X ONCE NEB ; Start 07/18/19 at 12:45; Stop 07/18/19 at 12:46; Status DC Furosemide (Lasix) 40 mg 1X ONCE IVP Last administered on 07/18/19at 15:48; Start 07/18/19 at 14:45; Stop 07/18/19 at 14:47; Status DC Magnesium Sulfate 100 ml @ 25 mls/hr 1X ONCE IV ; Start 07/18/19 at 16:30; Stop 07/18/19 at 20:29 Active Scripts Active Reported Xiidra (Lifitegrast) 1 Each Droperette 1 Each OP BID Vitamin D (Cholecalciferol (Vitamin D3)) 5,000 Unit Capsule 5,000 Unit PO WEEKLY Tylenol Extra Strength (Acetaminophen) 500 Mg Tablet 2 Mg PO DAILY Triple Antibiotic Ointment (Neomy Sulf/Bacitrac Zn/Poly) 1 Each Oint.pack 1 Each TP HS Triamcinolone Acetonide 0.1% Oint (Triamcinolone Acetonide) 15 Gm Oint...g. 1 Rosa TP BID MIX WITH EUCERIN DIRECTED BY PHYSICIAN Trazodone Hcl 50 Mg Tablet 1 Tab PO QHS Tramadol Hcl 50 Mg Tablet 75 Mg PO TID PRN Xarelto (Rivaroxaban) 20 Mg Tablet 20 Mg PO DAILY Risperdal (Risperidone) 1 Mg Tablet 1 Mg PO QHS Proventil Hfa Inhaler (Albuterol Sulfate) 6.7 Gm Hfa.aer.ad 1 Puff IH PRN Q4HRS PRN Protonix (Pantoprazole Sodium) 20 Mg Tablet.dr 40 Mg PO DAILY Potassium Chloride 20 Meq Tablet.er 20 Meq PO DAILY Miralax (Polyethylene Glycol 3350) 17 Gm Powd.pack 1 Packet PO DAILY PRN Pilocarpine Hcl 5 Mg Tablet 10 Mg PO TID Oxybutynin Chloride Er (Oxybutynin Chloride) 15 Mg Tab.er.24 1 Tab PO DAILY Meclizine Hcl 25 Mg Tablet 1 Tab PO TID Lyrica (Pregabalin) 75 Mg Capsule 1 Cap PO TID Loratadine 10 Mg Tablet 1 Tab PO DAILY Levothyroxine Sodium 175 Mcg Tablet 1 Tab PO DAILY Lasix (Furosemide) 20 Mg Tablet 1 Tab PO DAILY Hydroxyzine Hcl 25 Mg Tablet 1 Tab PO BID Divalproex Sodium Er (Divalproex Sodium) 500 Mg Tab.er.24h 2 Tab PO QHS Divalproex Sodium Er (Divalproex Sodium) 500 Mg Tab.er.24h 1 Tab PO DAILY Colace (Docusate Sodium) 100 Mg Capsule 1 Cap PO BID Celexa (Citalopram Hydrobromide) 40 Mg Tablet 1 Tab PO DAILY Celebrex (Celecoxib) 200 Mg Capsule 1 Cap PO DAILY [calcium alginate] 1 Ea TP HS Budesonide 0.5 Mg/2 Ml Ampul.neb 1 Vial NEB BID Biofreeze (Menthol) 118 Ml Gel..ml. 118 Ml TP TID Baclofen 10 Mg Tablet 1 Tab PO TID Artificial Tears Eye Drops (Dextran 70/Hypromellose) 15 Ml Drops 1 Drop EACHEYE PRN PRN Amlodipine Besylate 5 Mg Tablet 5 Mg PO DAILY Albuterol Sulfate Neb Soln (Albuterol Sulfate) 2.5 Mg/3 Ml Vial.neb 1 Vial NEB PRN Q4HRS Allergies Allergies: Coded Allergies: Pvagkpy-Rvp-Fbf Reductase Inhibitor (Verified Allergy, Intermediate, 02/02/19) azithromycin (Verified Allergy, Intermediate, 02/02/19) budesonide (Verified Allergy, Intermediate, 02/02/19) ceftriaxone (Verified Allergy, Intermediate, 02/02/19) ciprofloxacin (Verified Allergy, Intermediate, 02/02/19) clindamycin (Verified Allergy, Intermediate, 02/02/19) formoterol (Verified Allergy, Intermediate, 02/02/19) latex (Verified Allergy, Intermediate, 02/02/19) lorazepam (Verified Allergy, Intermediate, 02/02/19) morphine (Verified Allergy, Intermediate, 02/02/19) mupirocin (Verified Allergy, Intermediate, 02/02/19) sulfur dioxide (Verified Allergy, Intermediate, 02/02/19) ROS General: YES: Chills, Fatigue, Malaise PSYCHOLOGICAL ROS: YES: Anxiety, Behavioral Disorder, Depression, Disorientation; No: Concentration difficultie, Decreased libido, Hallucinations, Hostility, Irritablity, Memory difficulties, Mood Swings, Obsessive thoughts, Physical abuse, Sexual abuse, Sleep disturbances, Suicidal ideation, Other Eyes: No Blurry vision, No Decreased vision, No Double vision, No Dry eyes, No Excessive tearing, No Eye Pain, No Itchy Eyes, No Loss of vision, No Photophobia, No Scotomata, No Uses contacts, No Uses glasses, No Other HEENT: No: Heacaches, Visual Changes, Hearing change, Nasal congestion, Nasal discharge, Oral lesions, Sinus pain, Sore Throat, Epistaxis, Sneezing, Snoring, Tinnitus, Vertigo, Vocal changes, Other ALLERGY AND IMMUNOLOGY: No: Hives, Insect Bite Sensitivity, Itchy/Watery Eyes, Nasal Congestion, Post Nasal Drip, Seasonal Allergies, Other Hematological and Lymphatic: No: Bleeding Problems, Blood Clots, Blood Transfusions, Brusing, Night Sweats, Pallor, Swollen Lymph Nodes, Other ENDOCRINE: No: Breast Changes, Galactorrhea, Hair Pattern Changes, Hot Flashes, Malaise/lethargy, Mood Swings, Palpitations, Polydipsia/polyuria, Skin Changes, Temperature Intolerance, Unexpected Weight Changes, Other Breast: No New/Changing Breast Lumps, No Nipple changes, No Nipple discharge, No Other Respiratory: YES: Cough, Shortness of breath, Tachypnea, Wheezing; No: Hemoptysis, Orthopnea, Pleuritic Pain, SOB with excertion, Sputum Changes, Stridor, Other Cardiovascular: No Chest Pain, No Palpitations, No Orthopnea, No Paroxysmal Noc. Dyspnea, No Edema, No Lt Headedness, No Other Gastrointestinal: Yes Nausea, Yes Abdominal Pain; No Vomiting, No Diarrhea, No Constipation, No Melena, No Hematochezia, No Other Genitourinary: YES Dysuria, YES Frequency, YES Incontinence; No Hematuria, No Retention, No Discharge, No Urgency, No Pain, No Flank Pain, No Other, No , No , No , No , No , No , No Musculoskeletal: No Gait Disturbance, No Joint Pain, No Joint Stiffness, No Joint Swelling, No Muscle Pain, No Muscular Weakness, No Pain In:, No Swelling In:, No Other Neurological: No Behavorial Changes, No Bowel/Bladder ControlChng, No Confusion, No Dizziness, No Gait Disturbance, No Headaches, No Impaired Coord/balance, No Memory Loss, No Numbness/Tingling, No Seizures, No Speech Problems, No Tremors, No Visual Changes, No Weakness, No Other Skin: No Dry Skin, No Eczema, No Hair Changes, No Lumps, No Mole Changes, No Mottling, No Nail Changes, No Pruritus, No Rash, No Skin Lesion Changes, No Other, No Acne Physical Exam General: Alert, Cooperative, mild distress HEENT: Atraumatic, PERRLA, EOMI, Mucous membr. moist/pink Lungs: Other (Wheezing) Heart: S1S2, RRR, no thrills Abdomen: Normal bowel sounds, Soft, No tenderness, No hepatosplenomegaly, No masses Rectal Exam: not examined Extremities: No clubbing, No cyanosis, Normal pulses, Other (1+ pedal edema, venous stasis dermatitis. Gluteal skin breakdown) Skin: Other Neuro: Cranial nerves 3-12 NL, Reflexes 2+ Vitals Vitals Vital Signs Date Time Temp Pulse Resp B/P (MAP) Pulse Ox O2 Delivery O2 Flow Rate FiO2 07/18/19 15:43 99.6 80 17 184/72 (109) 97 Nasal Cannula 4.0 99.6 Labs Labs Laboratory Tests Test 07/18/19 13:00 07/18/19 15:05 White Blood Count 7.8 x10^3/uL (4.0-11.0) Red Blood Count 4.69 x10^6/uL (3.50-5.40) Hemoglobin 13.0 g/dL (12.0-15.5) Hematocrit 39.2 % (36.0-47.0) Mean Corpuscular Volume 84 fL (79-100) Mean Corpuscular Hemoglobin 28 pg (25-35) Mean Corpuscular Hemoglobin Concent 33 g/dL (31-37) Red Cell Distribution Width 14.5 % (11.5-14.5) Platelet Count 174 x10^3/uL (140-400) Neutrophils (%) (Auto) 79 % (31-73) Lymphocytes (%) (Auto) 11 % (24-48) Monocytes (%) (Auto) 10 % (0-9) Eosinophils (%) (Auto) 1 % (0-3) Basophils (%) (Auto) 0 % (0-3) Neutrophils # (Auto) 6.1 x10^3/uL (1.8-7.7) Lymphocytes # (Auto) 0.8 x10^3/uL (1.0-4.8) Monocytes # (Auto) 0.8 x10^3/uL (0.0-1.1) Eosinophils # (Auto) 0.1 x10^3/uL (0.0-0.7) Basophils # (Auto) 0.0 x10^3/uL (0.0-0.2) Prothrombin Time 13.8 SEC (11.7-14.0) Prothromb Time International Ratio 1.1 (0.8-1.1) Sodium Level 139 mmol/L (136-145) Potassium Level 4.6 mmol/L (3.5-5.1) Chloride Level 100 mmol/L (98-107) Carbon Dioxide Level 38 mmol/L (21-32) Anion Gap 1 (6-14) Blood Urea Nitrogen 13 mg/dL (7-20) Creatinine 0.6 mg/dL (0.6-1.0) Estimated GFR (Cockcroft-Gault) 100.6 BUN/Creatinine Ratio 22 (6-20) Glucose Level 95 mg/dL (70-99) Lactic Acid Level 1.1 mmol/L (0.4-2.0) Calcium Level 9.2 mg/dL (8.5-10.1) Magnesium Level 1.5 mg/dL (1.8-2.4) Total Bilirubin 0.4 mg/dL (0.2-1.0) Aspartate Amino Transf (AST/SGOT) 14 U/L (15-37) Alanine Aminotransferase (ALT/SGPT) 12 U/L (14-59) Alkaline Phosphatase 97 U/L (46-116) Troponin I Quantitative 0.050 ng/mL (0.000-0.055) BQ-Ech-S-Type Natriuretic Peptide 2328 pg/mL (0-124) Total Protein 7.3 g/dL (6.4-8.2) Albumin 2.6 g/dL (3.4-5.0) Albumin/Globulin Ratio 0.6 (1.0-1.7) Urine Collection Type U cath Urine Color Yellow Urine Clarity Turbid Urine pH 5.5 Urine Specific [place] 1.015 Urine Protein 30 mg/dL (NEG-TRACE) Urine Glucose (UA) Negative mg/dL (NEG) Urine Ketones (Stick) Negative mg/dL (NEG) Urine Blood Large (NEG) Urine Nitrite Positive (NEG) Urine Bilirubin Negative (NEG) Urine Urobilinogen Dipstick 0.2 mg/dL (0.2 mg/dL) Urine Leukocyte Esterase Large (NEG) Urine RBC >40 /HPF (0-2) Urine WBC Tntc /HPF (0-4) Urine Squamous Epithelial Cells Few /LPF Urine Bacteria Many /HPF (0-FEW) Urine Mucus Marked /LPF Laboratory Tests Test 07/18/19 13:00 07/18/19 15:05 White Blood Count 7.8 x10^3/uL (4.0-11.0) Red Blood Count 4.69 x10^6/uL (3.50-5.40) Hemoglobin 13.0 g/dL (12.0-15.5) Hematocrit 39.2 % (36.0-47.0) Mean Corpuscular Volume 84 fL (79-100) Mean Corpuscular Hemoglobin 28 pg (25-35) Mean Corpuscular Hemoglobin Concent 33 g/dL (31-37) Red Cell Distribution Width 14.5 % (11.5-14.5) Platelet Count 174 x10^3/uL (140-400) Neutrophils (%) (Auto) 79 % (31-73) Lymphocytes (%) (Auto) 11 % (24-48) Monocytes (%) (Auto) 10 % (0-9) Eosinophils (%) (Auto) 1 % (0-3) Basophils (%) (Auto) 0 % (0-3) Neutrophils # (Auto) 6.1 x10^3/uL (1.8-7.7) Lymphocytes # (Auto) 0.8 x10^3/uL (1.0-4.8) Monocytes # (Auto) 0.8 x10^3/uL (0.0-1.1) Eosinophils # (Auto) 0.1 x10^3/uL (0.0-0.7) Basophils # (Auto) 0.0 x10^3/uL (0.0-0.2) Prothrombin Time 13.8 SEC (11.7-14.0) Prothromb Time International Ratio 1.1 (0.8-1.1) Sodium Level 139 mmol/L (136-145) Potassium Level 4.6 mmol/L (3.5-5.1) Chloride Level 100 mmol/L (98-107) Carbon Dioxide Level 38 mmol/L (21-32) Anion Gap 1 (6-14) Blood Urea Nitrogen 13 mg/dL (7-20) Creatinine 0.6 mg/dL (0.6-1.0) Estimated GFR (Cockcroft-Gault) 100.6 BUN/Creatinine Ratio 22 (6-20) Glucose Level 95 mg/dL (70-99) Lactic Acid Level 1.1 mmol/L (0.4-2.0) Calcium Level 9.2 mg/dL (8.5-10.1) Magnesium Level 1.5 mg/dL (1.8-2.4) Total Bilirubin 0.4 mg/dL (0.2-1.0) Aspartate Amino Transf (AST/SGOT) 14 U/L (15-37) Alanine Aminotransferase (ALT/SGPT) 12 U/L (14-59) Alkaline Phosphatase 97 U/L (46-116) Troponin I Quantitative 0.050 ng/mL (0.000-0.055) RJ-Ong-L-Type Natriuretic Peptide 2328 pg/mL (0-124) Total Protein 7.3 g/dL (6.4-8.2) Albumin 2.6 g/dL (3.4-5.0) Albumin/Globulin Ratio 0.6 (1.0-1.7) Urine Collection Type U cath Urine Color Yellow Urine Clarity Turbid Urine pH 5.5 Urine Specific [place] 1.015 Urine Protein 30 mg/dL (NEG-TRACE) Urine Glucose (UA) Negative mg/dL (NEG) Urine Ketones (Stick) Negative mg/dL (NEG) Urine Blood Large (NEG) Urine Nitrite Positive (NEG) Urine Bilirubin Negative (NEG) Urine Urobilinogen Dipstick 0.2 mg/dL (0.2 mg/dL) Urine Leukocyte Esterase Large (NEG) Urine RBC >40 /HPF (0-2) Urine WBC Tntc /HPF (0-4) Urine Squamous Epithelial Cells Few /LPF Urine Bacteria Many /HPF (0-FEW) Urine Mucus Marked /LPF Images Images CXR - 1. Left midlung subsegmental atelectasis. 2. Findings suggesting mild CHF (Prominence of the pulmonary vasculature is seen suggesting mild CHF. There are probable small bilateral pleural effusions) No pneumothorax is seen. The osseous structures are unchanged. VTE Prophylaxis Ordered VTE Prophylaxis Devices: Yes VTE Pharmacological Prophylaxi: Yes Assessment/Plan Assessment/Plan A/P: Acute hypoxia - with CXR concerning for pulmonary HTN Fever and chills - with body aches, will get flu swab Dysuria - grossly abnormal UA, given empiric antibiotics Alkalosis - possibly from diuresis. I see her elevated BNP, this clinically may be CHF, but looks more like pulmonary HTN and possibly viral pulm infection. Consult pulm Bipolar Disorder - with anxiety and depression. Will check depakote level, cont meds COPD on 2l NCO2 - worsening now. Consult pulm Constipation - cont bowel regimen Diabetes-Type II - sliding scale in house GERD - cont meds High Cholesterol - cont statin Hypertension - cont meds Hypothyroid - will check TSH, cont meds AJ on CPAP - 9cm H2O QHS at SNF. Continue FEN - ADA diet PPX - lovenox FULL CODE - will address, find DPOA Dispo - inpatient for acute hypoxia and fever and chills COLETTE SCHERER MD Jul 18, 2019 16:45
[2019-07-18] MEDS: INSULIN LISPRO 300 UNITS/3 ML VIAL. SQ SCH (16:52)
[2019-07-18] MEDS ORDERED: CHOLECALCIFEROL (VITAMIN D3) 5,000 UNIT CAPSULE PO SCH (17:00)
[2019-07-18 17:02] LABS: INFLUENZA A PATIENT NEGATIVE (NEGATIVE); INFLUENZA B PATIENT NEGATIVE (NEGATIVE)
[2019-07-18] MEDS: traMADol 50 MG TABLET PO PRN (17:51)
[2019-07-18] MEDS: LEVOTHYROXINE 175 MCG TABLET PO SCH (17:56)
[2019-07-18] MEDS: amLODIPine BESYLATE 5 MG TABLET PO SCH (17:58)
[2019-07-18] MEDS: ACETAMINOPHEN 500 MG TABLET PO PRN (18:01)
[2019-07-18 18:02] LABS: BASE EXCESS ABG 10 mmol/L (-3-3); HCO3 ABG 38 mmol/L (21-28); SAT O2 ABG 86 % (92-99)
[2019-07-18 18:05] LABS: PCO2 ABG 64 mmHg (35-46); PO2 ABG 50 mmHg (65-108)
[2019-07-18 19:15] VITALS: BP 126/71
[2019-07-18] MEDS ORDERED: BUDESONIDE 0.5 MG/2 ML NEBU. NEB SCH (20:00)
--- NOTE | 2019-07-18 20:20 | NUR ---
NURSING NOTE Dr. Anaya notified of pts temp of 101.9 axiallary. Order for IV Toradol received.
--- NOTE | 2019-07-18 20:28 | NUR ---
Pharmacy Vancomycin Dosing Note S:Consulted to monitor and dose vancomycin started 07/18/19. O:ROGE RAM is a 64 year old F with FEVER, SOA . Height: 5 feet, 6 inches Weight: 142.4 kg [place] Body Weight: 59.30 Adjusted Body Weight: 92.54 Dosing Weight: Actual Other Antibiotics: Zosyn LABS: Last BUN: 13 Last Creatinine: 0.6 Creatinine Clearance: >100 mL/min Last WBC: 7.8 Last Procalcitonin: 1.33 Tmax (past 24 hours): 99.6 Vancomycin Dosing: Loading Dose: 2000 mg x1 Dosing Weight: Actual Target Trough: 15-20 A: Based on: weight and renal function P: 1. Begin Vancomycin 2000 mg IV q12h 2. Follow up Trough level on 07/20/19 at 0830 3. Pharmacy will continue to monitor, follow and adjust therapy as needed. Nicolasa Arriaga RPH, 07/18/[id number]
[2019-07-18] MEDS ORDERED: VANCOMYCIN 1 GM in IV NORMAL SALINE 250ML 250 ML IV ONE (20:30)
[2019-07-18] MEDS ORDERED: VANCOMYCIN PER PHARMACY MC PRN (20:30)
[2019-07-18] MEDS ORDERED: KETOROLAC 15 MG/ML VIAL. IV ONE (21:00)
[2019-07-18] MEDS: PIPERACILLIN/TAZOBACTAM 3.375 GM in IV NORMAL SALINE 50ML 50 ML IV SCH (22:23)
[2019-07-18] MEDS: DIVALPROEX EXTENDED RELEASE 500 MG TAB.ER.24H. PO SCH (22:59)
[2019-07-18] MEDS: PREGABALIN 75 MG CAPSULE PO SCH (23:00)
[2019-07-18] MEDS: risperiDONE 1 MG TABLET. PO SCH (23:00)
[2019-07-18] MEDS: traZODone 50 MG TABLET. PO SCH (23:00)
[2019-07-18] MEDS: PILOCARPINE 5 MG TABLET. PO SCH (23:00)
[2019-07-18] MEDS: DOCUSATE SODIUM 100 MG CAPSULE. PO SCH (23:00)
[2019-07-18 23:15] VITALS: BP 85/34
--- NOTE | 2019-07-18 23:50 | NUR ---
NURSING NOTE Dr. Anaya notified of pts BP of 85/34, HR of 76, Temp of 100.4 ax. Orders received. Will monitor.
[2019-07-19] VITALS (8 sets, daily range): BP systolic 92–139; BP diastolic 36–69
[2019-07-19] MEDS ORDERED: ALBUMIN HUMAN 25% 100 ML IV ONE (00:15)
--- NOTE | 2019-07-19 02:20 | NUR ---
NURSING NOTE Dr. Anaya notified of pts vitals after receiving albumin, BP of 92/43, HR of 69, and that pts troponin was elevated to 0.118, and that RT was concerned that pts tidal volumes on the bipap have been low. Also notified Dr. Anaya of pts further decreased response to verbal/tactile stimuli. Orders for ABG, Albumin, Diamox received. Dr. Anaya also notified that pt had received a dose of Budesonide as a breathing treatment earlier in the shift and that medication is listed as an allergy for the pt from [facility].
[2019-07-19 02:55] LABS: BASE EXCESS ABG 12 mmol/L (-3-3); FIO2 ABG 50; HCO3 ABG 40 mmol/L (21-28); PCO2 ABG 72 mmHg (35-46); PO2 ABG 72 mmHg (65-108); SAT O2 ABG 93 % (92-99)
[2019-07-19] MEDS ORDERED: ALBUMIN HUMAN 5% 500 ML IV ONE (03:00)
[2019-07-19] MEDS ORDERED: acetaZOLAMIDE SODIUM 500 MG VIAL. IVP ONE ×2 (03:15→09:00)
[2019-07-19] MEDS: PIPERACILLIN/TAZOBACTAM 3.375 GM in IV NORMAL SALINE 50ML 50 ML IV SCH (06:19)
[2019-07-19 07:02] LABS: CREATININE 0.7 mg/dL (0.6-1.0); GFR 84.2; POTASSIUM 3.3 mmol/L (3.5-5.1)
[2019-07-19 07:16] LABS: BASO % 0 % (0-3); EOS % 1 % (0-3); HEMATOCRIT 34.8 % (36.0-47.0); HEMOGLOBIN 11.2 g/dL (12.0-15.5); LYMPH # 1.1 x10^3/uL (1.0-4.8); LYMPH % 17 % (24-48); MEAN CORPUSCULAR HEMOGLOBIN 27 pg (25-35); MEAN CORPUSCULAR HGB CONC 32 g/dL (31-37); MEAN CORPUSCULAR VOLUME 85 fL (79-100); MONO % 16 % (0-9); NEUT # 4.1 x10^3/uL (1.8-7.7); NEUT % 65 % (31-73); PLATELET COUNT 142 x10^3/uL (140-400); RED BLOOD COUNT 4.11 x10^6/uL (3.50-5.40); RED CELL DISTRIBUTION WIDTH 14.7 % (11.5-14.5); WHITE BLOOD COUNT 6.3 x10^3/uL (4.0-11.0)
--- NOTE | 2019-07-19 07:30 | NUR ---
Pt BP 89/35. HR 60, Temp 98.[address] Francis notified, orders received for ID consult and transfer to ICU. Addendum: 07/19/19 at 0925 by SIERRA SIMON RN Lab called critical blood cultures, GNR in 2 of 2 bottles, in 2 different sets. BP re-checked, SBP in the 120's after albumin. Notified Dr. Francis, he stated he still want's the patient to transfer to ICU. Report called to MITRA Hatfield.
--- NOTE | 2019-07-19 07:46 | EKG ---
[facility] [address] [place] [address] Test Date: 2019-07-18 Test Time: 12:03:50 Pat Name: ROGE RAM Department: Room: Gender: F Vocal Teacher: : 1955 Requested By: ALYSSA URBANO Order Number: [id number] Reading MD: Measurements Intervals [place] Rate: 81 P: 24 SD: 184 QRS: -36 QRSD: 104 T: 41 QT: 386 QTc: 454 Interpretive Statements SINUS RHYTHM ABNORMAL LEFT AXIS DEVIATION LEFT ANTERIOR FASCICULAR BLOCK QRS(T) CONTOUR ABNORMALITY CONSIDER ANTEROSEPTAL MYOCARDIAL DAMAGE ABNORMAL ECG RI6.01 No previous ECG available for comparison
[2019-07-19] MEDS: INSULIN LISPRO 300 UNITS/3 ML VIAL. SQ SCH ×3 (07:55→16:23)
[2019-07-19] MEDS: amLODIPine BESYLATE 5 MG TABLET PO SCH (07:55)
[2019-07-19] MEDS: PREGABALIN 75 MG CAPSULE PO SCH ×3 (09:00→21:12)
[2019-07-19] MEDS: DOCUSATE SODIUM 100 MG CAPSULE. PO SCH ×2 (09:00→21:12)
[2019-07-19] MEDS: DIVALPROEX EXTENDED RELEASE 500 MG TAB.ER.24H. PO SCH ×2 (09:00→21:11)
[2019-07-19] MEDS ORDERED: VANCOMYCIN 2 GM in IV NORMAL SALINE 500ML BAG 500 ML IV SCH (09:00)
[2019-07-19] MEDS: PILOCARPINE 5 MG TABLET. PO SCH ×3 (09:00→21:12)
[2019-07-19] MEDS: LEVOTHYROXINE 175 MCG TABLET PO SCH (09:00)
--- NOTE | 2019-07-19 09:30 | NUR ---
Dr. Pablo evaluated the patient at the bedside and stated he wants to monitor the patient for a couple more hours before deciding to transfer. PT VVS, resting with eyes closed. Will continue to monitor.
--- NOTE | 2019-07-19 10:00 | NUR ---
Dr. Pablo notified this RN that he paged nursing supervisor border department about deciding to transfer patient to ICU. He stated he and Dr. Valencia Mitchell spoke and agree that the patient should be transferred due to deteriorating resp. status. Awaiting a call back from nursing supervisor border department. Will continue to monitor.
--- NOTE | 2019-07-19 10:45 | PDOC ---
PROGRESS NOTES Chief Complaint Chief Complaint severe sepsis Acute hypoxic respiratory failure Dysuria - UTI Alkalosis - possibly from diuresis Bipolar Disorder - with anxiety and depression. COPD w. acute exacerbation Constipation - Diabetes-Type II - sliding scale in house GERD - cont meds High Cholesterol - cont statin Hypertension - cont meds Hypothyroid - will check TSH, cont meds AJ on CPAP - 9cm H2O QHS at [facility]. Continue History of Present Illness History of Present Illness rapid response called this AM patient on BIPAP consider ICU, discussed with PULM and ID consult, will monitor and consider Vitals Vitals Vital Signs Date Time Temp Pulse Resp B/P (MAP) Pulse Ox O2 Delivery O2 Flow Rate FiO2 07/19/19 09:45 96 BiPAP/CPAP 07/19/19 08:00 4.0 07/19/19 07:56 60 89/35 07/19/19 07:00 98.1 22 98.1 Physical Exam General: Alert, Cooperative, mild distress Lungs: Wheezing Abdomen: Normal bowel sounds, Soft, No tenderness, No hepatosplenomegaly, No masses Extremities: No clubbing, No cyanosis, Normal pulses, Other (1+ pedal edema, venous stasis dermatitis. Gluteal skin breakdown) Skin: No rashes, Other Labs LABS Laboratory Tests Test 07/18/19 13:00 07/18/19 13:50 07/18/19 15:05 07/18/19 16:30 White Blood Count 7.8 x10^3/uL (4.0-11.0) Red Blood Count 4.69 x10^6/uL (3.50-5.40) Hemoglobin 13.0 g/dL (12.0-15.5) Hematocrit 39.2 % (36.0-47.0) Mean Corpuscular Volume 84 fL (79-100) Mean Corpuscular Hemoglobin 28 pg (25-35) Mean Corpuscular Hemoglobin Concent 33 g/dL (31-37) Red Cell Distribution Width 14.5 % (11.5-14.5) Platelet Count 174 x10^3/uL (140-400) Neutrophils (%) (Auto) 79 % (31-73) Lymphocytes (%) (Auto) 11 % (24-48) Monocytes (%) (Auto) 10 % (0-9) Eosinophils (%) (Auto) 1 % (0-3) Basophils (%) (Auto) 0 % (0-3) Neutrophils # (Auto) 6.1 x10^3/uL (1.8-7.7) Lymphocytes # (Auto) 0.8 x10^3/uL (1.0-4.8) Monocytes # (Auto) 0.8 x10^3/uL (0.0-1.1) Eosinophils # (Auto) 0.1 x10^3/uL (0.0-0.7) Basophils # (Auto) 0.0 x10^3/uL (0.0-0.2) Prothrombin Time 13.8 SEC (11.7-14.0) Prothromb Time International Ratio 1.1 (0.8-1.1) Sodium Level 139 mmol/L (136-145) Potassium Level 4.6 mmol/L (3.5-5.1) Chloride Level 100 mmol/L (98-107) Carbon Dioxide Level 38 mmol/L (21-32) Anion Gap 1 (6-14) Blood Urea Nitrogen 13 mg/dL (7-20) Creatinine 0.6 mg/dL (0.6-1.0) Estimated GFR (Cockcroft-Gault) 100.6 BUN/Creatinine Ratio 22 (6-20) Glucose Level 95 mg/dL (70-99) Lactic Acid Level 1.1 mmol/L (0.4-2.0) Calcium Level 9.2 mg/dL (8.5-10.1) Magnesium Level 1.5 mg/dL (1.8-2.4) Total Bilirubin 0.4 mg/dL (0.2-1.0) Aspartate Amino Transf (AST/SGOT) 14 U/L (15-37) Alanine Aminotransferase (ALT/SGPT) 12 U/L (14-59) Alkaline Phosphatase 97 U/L (46-116) Troponin I Quantitative 0.050 ng/mL (0.000-0.055) TY-Eap-A-Type Natriuretic Peptide 2328 pg/mL (0-124) Total Protein 7.3 g/dL (6.4-8.2) Albumin 2.6 g/dL (3.4-5.0) Albumin/Globulin Ratio 0.6 (1.0-1.7) Phosphorus Level 4.3 mg/dL (2.6-4.7) Procalcitonin 1.33 ng/mL (0.00-0.10) Thyroid Stimulating Hormone (TSH) 1.099 uIU/mL (0.358-3.74) Valproic Acid (Depakene) Level 53 mcg/mL (50-100) Valproic Acid Last Dose Date Unk Valproic Acid Last Dose Time Unk Urine Collection Type U cath Urine Color Yellow Urine Clarity Turbid Urine pH 5.5 Urine Specific [place] 1.015 Urine Protein 30 mg/dL (NEG-TRACE) Urine Glucose (UA) Negative mg/dL (NEG) Urine Ketones (Stick) Negative mg/dL (NEG) Urine Blood Large (NEG) Urine Nitrite Positive (NEG) Urine Bilirubin Negative (NEG) Urine Urobilinogen Dipstick 0.2 mg/dL (0.2 mg/dL) Urine Leukocyte Esterase Large (NEG) Urine RBC >40 /HPF (0-2) Urine WBC Tntc /HPF (0-4) Urine Squamous Epithelial Cells Few /LPF Urine Bacteria Many /HPF (0-FEW) Urine Mucus Marked /LPF Influenza Type A Antigen Negative (NEGATIVE) Influenza Type B Antigen Negative (NEGATIVE) Test 07/18/19 16:47 07/18/19 17:55 07/18/19 21:07 07/19/19 01:00 Glucose (Fingerstick) 65 mg/dL (70-99) 123 mg/dL (70-99) O2 Saturation 86 % (92-99) Arterial Blood pH 7.39 (7.35-7.45) Arterial Blood pCO2 at Patient Temp 64 mmHg (35-46) Arterial Blood pO2 at Patient Temp 50 mmHg (65-108) Arterial Blood HCO3 38 mmol/L (21-28) Arterial Blood Base Excess 10 mmol/L (-3-3) FiO2 4 lpm nc Troponin I Quantitative 0.118 ng/mL (0.000-0.055) Test 07/19/19 02:49 07/19/19 06:05 07/19/19 07:25 07/19/19 09:24 O2 Saturation 93 % (92-99) Arterial Blood pH 7.36 (7.35-7.45) Arterial Blood pCO2 at Patient Temp 72 mmHg (35-46) Arterial Blood pO2 at Patient Temp 72 mmHg (65-108) Arterial Blood HCO3 40 mmol/L (21-28) Arterial Blood Base Excess 12 mmol/L (-3-3) FiO2 50 White Blood Count 6.3 x10^3/uL (4.0-11.0) Red Blood Count 4.11 x10^6/uL (3.50-5.40) Hemoglobin 11.2 g/dL (12.0-15.5) Hematocrit 34.8 % (36.0-47.0) Mean Corpuscular Volume 85 fL (79-100) Mean Corpuscular Hemoglobin 27 pg (25-35) Mean Corpuscular Hemoglobin Concent 32 g/dL (31-37) Red Cell Distribution Width 14.7 % (11.5-14.5) Platelet Count 142 x10^3/uL (140-400) Neutrophils (%) (Auto) 65 % (31-73) Lymphocytes (%) (Auto) 17 % (24-48) Monocytes (%) (Auto) 16 % (0-9) Eosinophils (%) (Auto) 1 % (0-3) Basophils (%) (Auto) 0 % (0-3) Neutrophils # (Auto) 4.1 x10^3/uL (1.8-7.7) Lymphocytes # (Auto) 1.1 x10^3/uL (1.0-4.8) Monocytes # (Auto) 1.0 x10^3/uL (0.0-1.1) Eosinophils # (Auto) 0.0 x10^3/uL (0.0-0.7) Basophils # (Auto) 0.0 x10^3/uL (0.0-0.2) Sodium Level 141 mmol/L (136-145) Potassium Level 3.3 mmol/L (3.5-5.1) Chloride Level 99 mmol/L (98-107) Carbon Dioxide Level 40 mmol/L (21-32) Anion Gap 2 (6-14) Blood Urea Nitrogen 16 mg/dL (7-20) Creatinine 0.7 mg/dL (0.6-1.0) Estimated GFR (Cockcroft-Gault) 84.2 Glucose Level 105 mg/dL (70-99) Calcium Level 9.0 mg/dL (8.5-10.1) Troponin I Quantitative 0.059 ng/mL (0.000-0.055) Glucose (Fingerstick) 103 mg/dL (70-99) Lactic Acid Level 1.2 mmol/L (0.4-2.0) Assessment and Plan Assessmemt and Plan Problems Medical Problems: (1) Alkalosis Status: Acute (2) Bipolar disorder Status: Chronic (3) COPD (chronic obstructive pulmonary disease) Status: Chronic (4) DM2 (diabetes mellitus, type 2) Status: Chronic (5) Dyspnea Status: Acute (6) Dysuria Status: Acute (7) GERD (gastroesophageal reflux disease) Status: Chronic (8) High cholesterol Status: Chronic (9) Hypothyroid Status: Chronic (10) Hypoxia Status: Acute Comment Review of Relevant I have reviewed the following items katie (where applicable) has been applied. Labs Laboratory Tests Test 07/18/19 13:00 07/18/19 13:50 07/18/19 15:05 07/18/19 16:30 White Blood Count 7.8 x10^3/uL (4.0-11.0) Red Blood Count 4.69 x10^6/uL (3.50-5.40) Hemoglobin 13.0 g/dL (12.0-15.5) Hematocrit 39.2 % (36.0-47.0) Mean Corpuscular Volume 84 fL (79-100) Mean Corpuscular Hemoglobin 28 pg (25-35) Mean Corpuscular Hemoglobin Concent 33 g/dL (31-37) Red Cell Distribution Width 14.5 % (11.5-14.5) Platelet Count 174 x10^3/uL (140-400) Neutrophils (%) (Auto) 79 % (31-73) Lymphocytes (%) (Auto) 11 % (24-48) Monocytes (%) (Auto) 10 % (0-9) Eosinophils (%) (Auto) 1 % (0-3) Basophils (%) (Auto) 0 % (0-3) Neutrophils # (Auto) 6.1 x10^3/uL (1.8-7.7) Lymphocytes # (Auto) 0.8 x10^3/uL (1.0-4.8) Monocytes # (Auto) 0.8 x10^3/uL (0.0-1.1) Eosinophils # (Auto) 0.1 x10^3/uL (0.0-0.7) Basophils # (Auto) 0.0 x10^3/uL (0.0-0.2) Prothrombin Time 13.8 SEC (11.7-14.0) Prothromb Time International Ratio 1.1 (0.8-1.1) Sodium Level 139 mmol/L (136-145) Potassium Level 4.6 mmol/L (3.5-5.1) Chloride Level 100 mmol/L (98-107) Carbon Dioxide Level 38 mmol/L (21-32) Anion Gap 1 (6-14) Blood Urea Nitrogen 13 mg/dL (7-20) Creatinine 0.6 mg/dL (0.6-1.0) Estimated GFR (Cockcroft-Gault) 100.6 BUN/Creatinine Ratio 22 (6-20) Glucose Level 95 mg/dL (70-99) Lactic Acid Level 1.1 mmol/L (0.4-2.0) Calcium Level 9.2 mg/dL (8.5-10.1) Magnesium Level 1.5 mg/dL (1.8-2.4) Total Bilirubin 0.4 mg/dL (0.2-1.0) Aspartate Amino Transf (AST/SGOT) 14 U/L (15-37) Alanine Aminotransferase (ALT/SGPT) 12 U/L (14-59) Alkaline Phosphatase 97 U/L (46-116) Troponin I Quantitative 0.050 ng/mL (0.000-0.055) QH-Yqf-U-Type Natriuretic Peptide 2328 pg/mL (0-124) Total Protein 7.3 g/dL (6.4-8.2) Albumin 2.6 g/dL (3.4-5.0) Albumin/Globulin Ratio 0.6 (1.0-1.7) Phosphorus Level 4.3 mg/dL (2.6-4.7) Procalcitonin 1.33 ng/mL (0.00-0.10) Thyroid Stimulating Hormone (TSH) 1.099 uIU/mL (0.358-3.74) Valproic Acid (Depakene) Level 53 mcg/mL (50-100) Valproic Acid Last Dose Date Unk Valproic Acid Last Dose Time Unk Urine Collection Type U cath Urine Color Yellow Urine Clarity Turbid Urine pH 5.5 Urine Specific [place] 1.015 Urine Protein 30 mg/dL (NEG-TRACE) Urine Glucose (UA) Negative mg/dL (NEG) Urine Ketones (Stick) Negative mg/dL (NEG) Urine Blood Large (NEG) Urine Nitrite Positive (NEG) Urine Bilirubin Negative (NEG) Urine Urobilinogen Dipstick 0.2 mg/dL (0.2 mg/dL) Urine Leukocyte Esterase Large (NEG) Urine RBC >40 /HPF (0-2) Urine WBC Tntc /HPF (0-4) Urine Squamous Epithelial Cells Few /LPF Urine Bacteria Many /HPF (0-FEW) Urine Mucus Marked /LPF Influenza Type A Antigen Negative (NEGATIVE) Influenza Type B Antigen Negative (NEGATIVE) Test 07/18/19 16:47 07/18/19 17:55 07/18/19 21:07 07/19/19 01:00 Glucose (Fingerstick) 65 mg/dL (70-99) 123 mg/dL (70-99) O2 Saturation 86 % (92-99) Arterial Blood pH 7.39 (7.35-7.45) Arterial Blood pCO2 at Patient Temp 64 mmHg (35-46) Arterial Blood pO2 at Patient Temp 50 mmHg (65-108) Arterial Blood HCO3 38 mmol/L (21-28) Arterial Blood Base Excess 10 mmol/L (-3-3) FiO2 4 lpm nc Troponin I Quantitative 0.118 ng/mL (0.000-0.055) Test 07/19/19 02:49 07/19/19 06:05 07/19/19 07:25 07/19/19 09:24 O2 Saturation 93 % (92-99) Arterial Blood pH 7.36 (7.35-7.45) Arterial Blood pCO2 at Patient Temp 72 mmHg (35-46) Arterial Blood pO2 at Patient Temp 72 mmHg (65-108) Arterial Blood HCO3 40 mmol/L (21-28) Arterial Blood Base Excess 12 mmol/L (-3-3) FiO2 50 White Blood Count 6.3 x10^3/uL (4.0-11.0) Red Blood Count 4.11 x10^6/uL (3.50-5.40) Hemoglobin 11.2 g/dL (12.0-15.5) Hematocrit 34.8 % (36.0-47.0) Mean Corpuscular Volume 85 fL (79-100) Mean Corpuscular Hemoglobin 27 pg (25-35) Mean Corpuscular Hemoglobin Concent 32 g/dL (31-37) Red Cell Distribution Width 14.7 % (11.5-14.5) Platelet Count 142 x10^3/uL (140-400) Neutrophils (%) (Auto) 65 % (31-73) Lymphocytes (%) (Auto) 17 % (24-48) Monocytes (%) (Auto) 16 % (0-9) Eosinophils (%) (Auto) 1 % (0-3) Basophils (%) (Auto) 0 % (0-3) Neutrophils # (Auto) 4.1 x10^3/uL (1.8-7.7) Lymphocytes # (Auto) 1.1 x10^3/uL (1.0-4.8) Monocytes # (Auto) 1.0 x10^3/uL (0.0-1.1) Eosinophils # (Auto) 0.0 x10^3/uL (0.0-0.7) Basophils # (Auto) 0.0 x10^3/uL (0.0-0.2) Sodium Level 141 mmol/L (136-145) Potassium Level 3.3 mmol/L (3.5-5.1) Chloride Level 99 mmol/L (98-107) Carbon Dioxide Level 40 mmol/L (21-32) Anion Gap 2 (6-14) Blood Urea Nitrogen 16 mg/dL (7-20) Creatinine 0.7 mg/dL (0.6-1.0) Estimated GFR (Cockcroft-Gault) 84.2 Glucose Level 105 mg/dL (70-99) Calcium Level 9.0 mg/dL (8.5-10.1) Troponin I Quantitative 0.059 ng/mL (0.000-0.055) Glucose (Fingerstick) 103 mg/dL (70-99) Lactic Acid Level 1.2 mmol/L (0.4-2.0) Laboratory Tests Test 07/18/19 13:00 07/18/19 13:50 07/18/19 15:05 07/18/19 16:30 White Blood Count 7.8 x10^3/uL (4.0-11.0) Red Blood Count 4.69 x10^6/uL (3.50-5.40) Hemoglobin 13.0 g/dL (12.0-15.5) Hematocrit 39.2 % (36.0-47.0) Mean Corpuscular Volume 84 fL (79-100) Mean Corpuscular Hemoglobin 28 pg (25-35) Mean Corpuscular Hemoglobin Concent 33 g/dL (31-37) Red Cell Distribution Width 14.5 % (11.5-14.5) Platelet Count 174 x10^3/uL (140-400) Neutrophils (%) (Auto) 79 % (31-73) Lymphocytes (%) (Auto) 11 % (24-48) Monocytes (%) (Auto) 10 % (0-9) Eosinophils (%) (Auto) 1 % (0-3) Basophils (%) (Auto) 0 % (0-3) Neutrophils # (Auto) 6.1 x10^3/uL (1.8-7.7) Lymphocytes # (Auto) 0.8 x10^3/uL (1.0-4.8) Monocytes # (Auto) 0.8 x10^3/uL (0.0-1.1) Eosinophils # (Auto) 0.1 x10^3/uL (0.0-0.7) Basophils # (Auto) 0.0 x10^3/uL (0.0-0.2) Prothrombin Time 13.8 SEC (11.7-14.0) Prothromb Time International Ratio 1.1 (0.8-1.1) Sodium Level 139 mmol/L (136-145) Potassium Level 4.6 mmol/L (3.5-5.1) Chloride Level 100 mmol/L (98-107) Carbon Dioxide Level 38 mmol/L (21-32) Anion Gap 1 (6-14) Blood Urea Nitrogen 13 mg/dL (7-20) Creatinine 0.6 mg/dL (0.6-1.0) Estimated GFR (Cockcroft-Gault) 100.6 BUN/Creatinine Ratio 22 (6-20) Glucose Level 95 mg/dL (70-99) Lactic Acid Level 1.1 mmol/L (0.4-2.0) Calcium Level 9.2 mg/dL (8.5-10.1) Magnesium Level 1.5 mg/dL (1.8-2.4) Total Bilirubin 0.4 mg/dL (0.2-1.0) Aspartate Amino Transf (AST/SGOT) 14 U/L (15-37) Alanine Aminotransferase (ALT/SGPT) 12 U/L (14-59) Alkaline Phosphatase 97 U/L (46-116) Troponin I Quantitative 0.050 ng/mL (0.000-0.055) XD-Cwl-A-Type Natriuretic Peptide 2328 pg/mL (0-124) Total Protein 7.3 g/dL (6.4-8.2) Albumin 2.6 g/dL (3.4-5.0) Albumin/Globulin Ratio 0.6 (1.0-1.7) Phosphorus Level 4.3 mg/dL (2.6-4.7) Procalcitonin 1.33 ng/mL (0.00-0.10) Thyroid Stimulating Hormone (TSH) 1.099 uIU/mL (0.358-3.74) Valproic Acid (Depakene) Level 53 mcg/mL (50-100) Valproic Acid Last Dose Date Unk Valproic Acid Last Dose Time Unk Urine Collection Type U cath Urine Color Yellow Urine Clarity Turbid Urine pH 5.5 Urine Specific [place] 1.015 Urine Protein 30 mg/dL (NEG-TRACE) Urine Glucose (UA) Negative mg/dL (NEG) Urine Ketones (Stick) Negative mg/dL (NEG) Urine Blood Large (NEG) Urine Nitrite Positive (NEG) Urine Bilirubin Negative (NEG) Urine Urobilinogen Dipstick 0.2 mg/dL (0.2 mg/dL) Urine Leukocyte Esterase Large (NEG) Urine RBC >40 /HPF (0-2) Urine WBC Tntc /HPF (0-4) Urine Squamous Epithelial Cells Few /LPF Urine Bacteria Many /HPF (0-FEW) Urine Mucus Marked /LPF Influenza Type A Antigen Negative (NEGATIVE) Influenza Type B Antigen Negative (NEGATIVE) Test 07/18/19 16:47 07/18/19 17:55 07/18/19 21:07 07/19/19 01:00 Glucose (Fingerstick) 65 mg/dL (70-99) 123 mg/dL (70-99) O2 Saturation 86 % (92-99) Arterial Blood pH 7.39 (7.35-7.45) Arterial Blood pCO2 at Patient Temp 64 mmHg (35-46) Arterial Blood pO2 at Patient Temp 50 mmHg (65-108) Arterial Blood HCO3 38 mmol/L (21-28) Arterial Blood Base Excess 10 mmol/L (-3-3) FiO2 4 lpm nc Troponin I Quantitative 0.118 ng/mL (0.000-0.055) Test 07/19/19 02:49 07/19/19 06:05 07/19/19 07:25 07/19/19 09:24 O2 Saturation 93 % (92-99) Arterial Blood pH 7.36 (7.35-7.45) Arterial Blood pCO2 at Patient Temp 72 mmHg (35-46) Arterial Blood pO2 at Patient Temp 72 mmHg (65-108) Arterial Blood HCO3 40 mmol/L (21-28) Arterial Blood Base Excess 12 mmol/L (-3-3) FiO2 50 White Blood Count 6.3 x10^3/uL (4.0-11.0) Red Blood Count 4.11 x10^6/uL (3.50-5.40) Hemoglobin 11.2 g/dL (12.0-15.5) Hematocrit 34.8 % (36.0-47.0) Mean Corpuscular Volume 85 fL (79-100) Mean Corpuscular Hemoglobin 27 pg (25-35) Mean Corpuscular Hemoglobin Concent 32 g/dL (31-37) Red Cell Distribution Width 14.7 % (11.5-14.5) Platelet Count 142 x10^3/uL (140-400) Neutrophils (%) (Auto) 65 % (31-73) Lymphocytes (%) (Auto) 17 % (24-48) Monocytes (%) (Auto) 16 % (0-9) Eosinophils (%) (Auto) 1 % (0-3) Basophils (%) (Auto) 0 % (0-3) Neutrophils # (Auto) 4.1 x10^3/uL (1.8-7.7) Lymphocytes # (Auto) 1.1 x10^3/uL (1.0-4.8) Monocytes # (Auto) 1.0 x10^3/uL (0.0-1.1) Eosinophils # (Auto) 0.0 x10^3/uL (0.0-0.7) Basophils # (Auto) 0.0 x10^3/uL (0.0-0.2) Sodium Level 141 mmol/L (136-145) Potassium Level 3.3 mmol/L (3.5-5.1) Chloride Level 99 mmol/L (98-107) Carbon Dioxide Level 40 mmol/L (21-32) Anion Gap 2 (6-14) Blood Urea Nitrogen 16 mg/dL (7-20) Creatinine 0.7 mg/dL (0.6-1.0) Estimated GFR (Cockcroft-Gault) 84.2 Glucose Level 105 mg/dL (70-99) Calcium Level 9.0 mg/dL (8.5-10.1) Troponin I Quantitative 0.059 ng/mL (0.000-0.055) Glucose (Fingerstick) 103 mg/dL (70-99) Lactic Acid Level 1.2 mmol/L (0.4-2.0) Microbiology 07/18/19 Blood Culture - Final, Complete Medications Current Medications Sodium Chloride 1,000 ml @ 100 mls/hr Q10H IV Last administered on 07/18/19 13:14; Start 07/18/19 at 12:25; Stop 07/18/19 at 22:24; Status DC Piperacillin Sod/ Tazobactam Sod 3.375 gm/Sodium Chloride 50 ml @ 100 mls/hr 1X ONCE IV Last administered on 07/18/19 13:14; Start 07/18/19 at 12:45; Stop 07/18/19 at 13:14; Status DC Vancomycin HCl 250 ml @ 250 mls/hr 1X ONCE IV Last administered on 07/18/19at 13:58; Start 07/18/19 at 12:45; Stop 07/18/19 at 13:44; Status DC Albuterol/ Ipratropium (Duoneb) 3 ml 1X ONCE NEB Last administered on 07/18/19at 17:56; Start 07/18/19 at 12:45; Stop 07/18/19 at 12:46; Status DC Furosemide (Lasix) 40 mg 1X ONCE IVP Last administered on 07/18/19at 15:48; Start 07/18/19 at 14:45; Stop 07/18/19 at 14:47; Status DC Magnesium Sulfate 100 ml @ 25 mls/hr 1X ONCE IV Last administered on 9/8/19at 18:02; Start 07/18/19 at 16:30; Stop 07/18/19 at 20:29; Status DC Acetaminophen (Tylenol) 500 mg PRN DAILY PRN PO HEADACHE / TEMP Last administered on 07/18/19 18:02; Start 07/18/19 at 09:00 Albuterol Sulfate (Ventolin Neb Soln) 2.5 mg PRN Q4HRS NEB ; Start 07/18/19 at 16:15 Amlodipine Besylate (Norvasc) 5 mg DAILY PO Last administered on 07/18/19 18:02; Start 07/18/19 at 17:00 Budesonide (Pulmicort) 2 mg RTBID NEB Last administered on 07/18/19 20:42; Start 07/18/19 at 20:00; Stop 07/18/19 at 20:59; Status DC Vitamin D (Vitamin D3) 5,000 unit WEEKLY PO Last administered on 07/18/19 18:02; Start 07/18/19 at 17:00 Divalproex Sodium (Depakote Er) 500 mg DAILY PO ; Start 07/19/19 at 09:00 Divalproex Sodium (Depakote Er) 1,000 mg QHS PO Last administered on 07/18/19 23:07; Start 07/18/19 at 21:00 Docusate Sodium (Colace) 100 mg BID PO Last administered on 07/18/19 23:07; Start 07/18/19 at 21:00 Levothyroxine Sodium (Synthroid) 175 mcg DAILY PO Last administered on 07/18/19 18:02; Start 07/18/19 at 17:00 [place]ine HCl (Salagen) 10 mg TID PO Last administered on 07/18/19 23:07; Start 07/18/19 at 21:00 Polyethylene Glycol (miraLAX PACKET) 17 gm PRN DAILY PRN PO CONSTIPATION; Start 07/18/19 at 16:15 Pregabalin (Lyrica) 75 mg TID PO Last administered on 07/18/19 23:07; Start 07/18/19 at 21:00 Risperidone (RisperDAL) 1 mg QHS PO Last administered on 07/18/19 23:07; Start 07/18/19 at 21:00 Tramadol HCl (Ultram) 75 mg PRN TID PRN PO PAIN MILD TO MOD Last administered on 07/18/19 18:02; Start 07/18/19 at 16:15 Trazodone HCl (Desyrel) 50 mg QHS PO Last administered on 07/18/19at 23:07; Start 07/18/19 at 21:00 Enoxaparin Sodium (Lovenox 60mg Syringe) 60 mg Q12HR SQ Last administered on 07/19/19at 08:47; Start 07/18/19 at 21:00 Insulin Human Lispro (HumaLOG) 0-7 UNITS TIDWMEALS SQ ; Start 07/18/19 at 17:00 Dextrose (Dextrose 50%-Water Syringe) 12.5 gm PRN Q15MIN PRN IV SEE COMMENTS; Start 07/18/19 at 16:45 Dextrose 250 ml PRN Q15MIN PRN IV SEE COMMENTS; Start 07/18/19 at 16:45 Vancomycin HCl (Vanco Per Pharmacy) 1 each PRN DAILY PRN MC SEE COMMENTS Last administered on 07/18/19at 20:28; Start 07/18/19 at 20:30 Vancomycin HCl 2 gm/Sodium Chloride 500 ml @ 250 mls/hr Q12H IV Last administered on 07/19/19at 08:47; Start 07/19/19 at 09:00 Piperacillin Sod/ Tazobactam Sod 3.375 gm/Sodium Chloride 50 ml @ 100 mls/hr Q6HRS IV Last administered on 07/19/19at 06:19; Start 07/18/19 at 21:00 Vancomycin HCl 1 gm/Sodium Chloride 250 ml @ 250 mls/hr 1X ONCE IV Last administered on 07/18/19at 23:09; Start 07/18/19 at 20:30; Stop 07/18/19 at 21:29; Status DC Ketorolac Tromethamine (Toradol 15mg Vial) 15 mg 1X ONCE IV Last administered on 07/18/19at 22:28; Start 07/18/19 at 21:00; Stop 07/18/19 at 21:01; Status DC Vancomycin HCl (Vancomycin Trough Level) 1 each 1X ONCE MC ; Start 07/20/19 at 08:30; Stop 07/20/19 at 08:31 Albumin Human 100 ml @ 100 mls/hr 1X ONCE IV Last administered on 07/19/19at 00:25; Start 07/19/19 at 00:15; Stop 07/19/19 at 01:14; Status DC Albumin Human 500 ml @ 125 mls/hr 1X ONCE IV Last administered on 07/19/19at 03:37; Start 07/19/19 at 03:00; Stop 07/19/19 at 06:59; Status DC Acetazolamide Sodium (Diamox Inj) 500 mg 1X ONCE IVP Last administered on 07/19/19at 03:37; Start 07/19/19 at 03:15; Stop 07/19/19 at 03:16; Status DC Acetazolamide Sodium (Diamox Inj) 500 mg DAILY ONCE IVP ; Start 07/19/19 at 09:00; Stop 07/19/19 at 05:02; Status DC Acetazolamide Sodium (Diamox Inj) 500 mg DAILY IVP ; Start 07/20/19 at 09:00 Active Scripts Active Reported Xiidra (Lifitegrast) 1 Each Droperette 1 Each OP BID Vitamin D (Cholecalciferol (Vitamin D3)) 5,000 Unit Capsule 5,000 Unit PO WEEKLY Tylenol Extra Strength (Acetaminophen) 500 Mg Tablet 2 Mg PO DAILY Trazodone Hcl 50 Mg Tablet 1 Tab PO QHS Tramadol Hcl 50 Mg Tablet 75 Mg PO TID PRN Xarelto (Rivaroxaban) 20 Mg Tablet 20 Mg PO DAILY Risperdal (Risperidone) 1 Mg Tablet 1 Mg PO QHS Proventil Hfa Inhaler (Albuterol Sulfate) 6.7 Gm Hfa.aer.ad 1 Puff IH PRN Q4HRS PRN Protonix (Pantoprazole Sodium) 20 Mg Tablet.dr 40 Mg PO DAILY Potassium Chloride 20 Meq Tablet.er 20 Meq PO DAILY Miralax (Polyethylene Glycol 3350) 17 Gm Powd.pack 1 Packet PO DAILY PRN Pilocarpine Hcl 5 Mg Tablet 10 Mg PO TID Meclizine Hcl 25 Mg Tablet 1 Tab PO TID Lyrica (Pregabalin) 75 Mg Capsule 1 Cap PO TID Loratadine 10 Mg Tablet 1 Tab PO DAILY Levothyroxine Sodium 175 Mcg Tablet 1 Tab PO DAILY Lasix (Furosemide) 20 Mg Tablet 1 Tab PO DAILY Hydroxyzine Hcl 25 Mg Tablet 1 Tab PO BID Divalproex Sodium Er (Divalproex Sodium) 500 Mg Tab.er.24h 2 Tab PO QHS Divalproex Sodium Er (Divalproex Sodium) 500 Mg Tab.er.24h 1 Tab PO DAILY Colace (Docusate Sodium) 100 Mg Capsule 1 Cap PO BID Celexa (Citalopram Hydrobromide) 40 Mg Tablet 1 Tab PO DAILY Celebrex (Celecoxib) 200 Mg Capsule 1 Cap PO DAILY Budesonide 0.5 Mg/2 Ml Ampul.neb 1 Vial NEB BID Biofreeze (Menthol) 118 Ml Gel..ml. 118 Ml TP TID Baclofen 10 Mg Tablet 1 Tab PO TID Artificial Tears Eye Drops (Dextran 70/Hypromellose) 15 Ml Drops 1 Drop EACHEYE PRN PRN Amlodipine Besylate 5 Mg Tablet 5 Mg PO DAILY Albuterol Sulfate Neb Soln (Albuterol Sulfate) 2.5 Mg/3 Ml Vial.neb 1 Vial NEB PRN Q4HRS Vitals/I & O Vital Sign - Last 24 Hours 07/18/19 07/18/19 07/18/19 07/18/19 12:15 12:31 12:46 13:31 Temp 99.0 99.0 99.0 99.0 Pulse 80 80 74 Resp 22 22 20 B/P (MAP) 140/64 (89) 114/59 (77) 118/60 (79) Pulse Ox 92 93 94 95 O2 Delivery Nasal Cannula Nasal Cannula Nasal Cannula Nasal Cannula O2 Flow Rate 4.0 4.0 4.0 4.0 07/18/19 07/18/19 07/18/19 07/18/19 14:31 15:31 15:43 16:32 Temp 99.6 98.4 99.6 98.4 Pulse 72 80 80 108 Resp 20 17 17 19 B/P (MAP) 137/65 (89) 182/75 (110) 184/72 (109) 136/110 (119) Pulse Ox 98 97 97 93 O2 Delivery Nasal Cannula Nasal Cannula Nasal Cannula Room Air O2 Flow Rate 4.0 4.0 4.0 4.0 07/18/19 07/18/19 07/18/19 07/18/19 18:02 18:02 18:19 18:27 Pulse 108 B/P (MAP) 136/110 Pulse Ox 93 93 O2 Delivery Nasal Cannula Nasal Cannula BiPAP/CPAP O2 Flow Rate 4.0 4.0 07/18/19 07/18/19 07/18/19 07/18/19 19:15 20:12 20:30 20:44 Temp 101.9 101.9 Pulse 90 Resp 22 B/P (MAP) 126/71 (89) Pulse Ox 94 87 92 O2 Delivery BiPAP/CPAP BiPAP/CPAP Bi-pap BiPAP/CPAP 07/18/19 07/18/19 07/18/19 07/19/19 22:34 23:15 23:55 01:20 Temp 100.4 100.4 Pulse 76 72 Resp 17 B/P (MAP) 85/34 (51) 104/53 (70) Pulse Ox 93 96 96 O2 Delivery BiPAP/CPAP BiPAP/CPAP BiPAP/CPAP 07/19/19 07/19/19 07/19/19 07/19/19 01:50 01:55 02:15 03:15 Temp 98.6 98.1 98.6 98.1 Pulse 69 68 Resp 20 23 B/P (MAP) 92/43 (59) 100/47 (64) Pulse Ox 98 95 O2 Delivery BiPAP/CPAP BiPAP/CPAP BiPAP/CPAP BiPAP/CPAP 07/19/19 07/19/19 07/19/19 07/19/19 03:35 05:02 07:00 07:56 Temp 98.5 98.1 98.5 98.1 Pulse 65 60 60 Resp 25 22 B/P (MAP) 106/52 (70) 92/36 (54) 89/35 Pulse Ox 91 98 92 O2 Delivery BiPAP/CPAP BiPAP/CPAP BiPAP/CPAP 07/19/19 07/19/19 07/19/19 08:00 08:24 09:45 Pulse Ox 96 96 O2 Delivery Bi-pap BiPAP/CPAP BiPAP/CPAP O2 Flow Rate 4.0 Intake and Output 07/18/19 07/18/19 07/19/19 14:59 22:59 06:59 Intake Total 350 ml 400 ml 970 ml Output Total 800 ml Balance 350 ml -400 ml 970 ml RHONA OWENS MD Jul 19, 2019 10:45
[2019-07-19 10:49] LABS: BASE EXCESS ABG 7 mmol/L (-3-3); HCO3 ABG 36 mmol/L (21-28); PO2 ABG 95 mmHg (65-108); SAT O2 ABG 97 % (92-99)
[2019-07-19 10:54] LABS: FIO2 ABG 40; PCO2 ABG 71 mmHg (35-46)
--- NOTE | 2019-07-19 11:30 | NUR ---
Nursing supervisor [employer] former spoke with Dr. Trinidad about patient resp. status and he stated he is okay with patient remaining on this floor. Nursing supervisor [employer] former spoke with the admitting physician and Dr. Fernando Mitchell, whom all agree to keep patient on this floor. Pt currently resting with eyes closed, arouses to name, BP 146/63, and HR 67. Another blood gas ordered for 1300. Will continue to monitor.
[2019-07-19] MEDS: PIPERACILLIN/TAZOBACTAM 4.5 GM in IV NORMAL SALINE 100ML 100 ML IV SCH ×2 (11:52→17:02)
--- NOTE | 2019-07-19 11:58 | CONS ---
DATE OF CONSULTATION: 07/19/2019 PULMONARY CONSULTATION ATTENDING PHYSICIAN: Dr. Carlos Anaya. REASON FOR CONSULTATION: Respiratory failure. HISTORY OF PRESENT ILLNESS: The patient is a 64-year-old SNF resident, wheelchair bound, with bipolar disorder. The patient also has COPD with 2 liters of oxygen chronically and sleep apnea. The patient was brought into the hospital after she was noted to be lethargic and had altered mental status. Had an increasing oxygen requirement. The patient also had a fever of 104. This was reported at the nursing facility. As a result, the patient was transferred. She is currently on BiPAP. Initial ABG showed a pH of 7.39, pCO2 of 64, and a pO2 of 50 on 4 liters. She was placed on 50% FiO2 with BiPAP and pH this nurse informatics educator was 7.36, pCO2 72, and a pO2 of 72. She is down to 40% FiO2 on the BiPAP. She is alert, responds to some commands, but unable to give much history. I have reviewed the patient's chest x-ray. There is a patchy infiltrate in the lingula. The vascularity at the upper limit of normal. Consultation requested for further evaluation and management. PAST MEDICAL HISTORY: History of bipolar disorder; history of COPD; history of chronic respiratory failure, on 2 liters of oxygen at home; history of GERD; psychosis. PAST SURGICAL HISTORY: No recent surgery. FAMILY HISTORY: Unable to obtain from the patient. ALLERGIES: All reviewed as listed in the MRAD. REVIEW OF SYSTEMS: Unable to obtain from the patient. MEDICATIONS: All reviewed including antibiotics, vancomycin and Zosyn. SOCIAL HISTORY: Lives at [facility]. PHYSICAL EXAMINATION: VITAL SIGNS: On examination, blood pressure 92/36, pulse ox is 96% on 40% BiPAP. She had a fever of 101.9. HEENT: Sclerae nonicteric. NECK: Supple. LUNGS: With diminished breath sounds. CARDIOVASCULAR: Regular rate. ABDOMEN: Soft. EXTREMITIES: With some trace pitting edema and erythema. LABORATORY DATA: Reviewed. ABGs are discussed in my history of present illness. BUN is 16, creatinine 0.7. Potassium 3.3. White cell count 6.3, hemoglobin 11.2, and platelets are 142. IMPRESSION: 1. Cxkii-cl-[id number] hypoxic and hypercapnic respiratory failure secondary to sepsis. 2. Underlying chronic obstructive pulmonary disease with chronic respiratory failure, on home oxygen at 2 liters. Now, requiring BiPAP. 3. High grade fever./sepsis. The etiologies could be multifactorial and possibility of pneumonia is a consideration. Influenza screen is negative. Need to consider other sources of infection as well. 4. Mildly increased troponin level. 5. Underlying bipolar disorder. RECOMMENDATIONS: 1. Repeat arterial blood gases. Avoid hyperoxia. ABG recent shows mild de- compensated respiratory acidosis and we will continue BiPAP during the day till ABG better 2. Continue broad-spectrum antibiotic. 3. Follow all cultures. 4. ID consult and recommendation. 5. Lovenox for DVT prophylaxis. 6. Bronchodilators. 7. We will follow along with you. Discussed with RN/ DR Pablo/ RT cct 30 min LESLEY HENDRICKS MD DR: SHERRY/ted JOB#: [id number] / [id number] SARITA
[2019-07-19 13:22] LABS: BASE EXCESS ABG 9 mmol/L (-3-3); HCO3 ABG 37 mmol/L (21-28); PO2 ABG 52 mmHg (65-108); SAT O2 ABG 86 % (92-99)
[2019-07-19 13:29] LABS: PCO2 ABG 70 mmHg (35-46)
[2019-07-19 13:30] LABS: FIO2 ABG 25
[2019-07-19] MEDS: traMADol 50 MG TABLET PO PRN (14:13)
[2019-07-19] MEDS: ACETAMINOPHEN 500 MG TABLET PO PRN (17:02)
[2019-07-19] MEDS: traZODone 50 MG TABLET. PO SCH (21:12)
[2019-07-19] MEDS: LACTOBACILLUS RHAMNOSUS GG 1 CAPSULE. PO SCH (21:12)
[2019-07-19] MEDS: risperiDONE 1 MG TABLET. PO SCH (21:12)
--- NOTE | 2019-07-19 22:00 | CONS ---
DATE OF CONSULTATION: 07/19/2019 REFERRING PHYSICIAN: Carlos Anaya M.D. REASON FOR CONSULTATION: Sepsis. HISTORY OF PRESENT ILLNESS: This is a 64-year-old female who is a longterm resident, presented to the ER by EMS on 07/18/2019 with fever at 104 with increased lethargy, cough, shortness of breath and hypoxia requiring O2 by nasal cannula. The patient had pyuria and was started on IV vancomycin and Zosyn. Blood cultures 4/4 bottles are positive for Gram-negative brandon. ID and RITA is pending. The patient is now requiring BiPAP. ID consult has been requested for antibiotic management. The patient had chest x-ray done earlier, which was negative for any infiltrate, had mild CHF, subsegmental atelectasis. White count was normal. Lactate was normal. Influenza screen is negative. Potassium is 3.3. Lactate was 1.1. Procalcitonin was 1.33. Magnesium was 1.5. BNP was 2328. The patient is on BiPAP, currently answers a few questions. Denies any pain, nausea, vomiting, diarrhea, abdominal pain or headache. PAST MEDICAL HISTORY: Obesity, hypertension, longterm resident, COPD, pulmonary hypertension, GERD, constipation, anxiety, bipolar, depression, psychosis and diabetes. PAST SURGICAL HISTORY: None. FAMILY HISTORY: Unknown. SOCIAL HISTORY: No smoking, ETOH, or illicit drug use. CURRENT MEDICATIONS: IV vancomycin and Zosyn. Other medications reviewed in medication list. ALLERGIES: STATINS, AZITHROMYCIN, BUDESONIDE, CEFTRIAXONE, CIPRO, CLINDAMYCIN, FORMOTEROL, LATEX, LORAZEPAM, MORPHINE, MUPIROCIN AND SULFUR DIOXIDE. REVIEW OF SYSTEMS: Negative except for above in HPI. PHYSICAL EXAMINATION: VITAL SIGNS: Temperature 98.1, T-max 101.9, pulse 60, respiratory rate 22, blood pressure 83/35 and oxygen saturation 96% on BiPAP. GENERAL: Alert, cooperative, mild distress from respiratory, on BiPAP. HEENT: Normocephalic, atraumatic, anicteric. NECK: Supple. LUNGS: Decreased breath sounds. HEART: S1, S2. No gallops or murmurs. ABDOMEN: Soft, nontender and obese. Bowel sounds present. EXTREMITIES: No edema, no cyanosis. NEUROLOGIC: Alert and awake, on BiPAP. Moves all 4 extremities. Grossly nonfocal. GENITOURINARY: External urinary catheter in place. LABORATORY DATA: WBC 6.3, hemoglobin 11.2, hematocrit 34.8 and platelets 142. Sodium 141, potassium 3.3, chloride 99, bicarbonate 40, BUN 16, creatinine 0.7, glucose 105, lactate 1.2, calcium 9.0 and troponin 0.059. IMAGING: Chest x-ray, left mid lung subsegmental atelectasis. Findings suggestive of mild CHF. IMPRESSION: 1. Sepsis from Gram negative bacteremia 2. Gram-negative bacteremia, source genitourinary. ID and RITA pending 3. Gram-negative brandon positive in urine culture. 4. Acute respiratory failure, on BiPAP. 5. Congestive heart failure. 6. Bronchitis. 7. Fever. 8. jail resident. 9. Diabetes mellitus. 10. Bipolar disorder and anxiety. RECOMMENDATIONS: 1. Discontinue IV vancomycin. 2. Continue Zosyn.Increase the dose for now 3. Repeat blood cultures. 4. Follow up ID and RITA of Gram-negative brandon in blood cultures. 5. Follow up ID and RITA of Gram-negative brandon and urine cultures. 6. Obtain CT of abdomen and pelvis without contrast. 7. Follow up labs and cultures. 8. Continue supportive care. Thank you for allowing me to participate in this patient's care. We will follow along with you. Discussed with nursing and Dr. Pablo. MITZI HAWLEY MD DR: CRYSTAL/ted JOB#: [id number] / [id number] SARITA
[2019-07-20] VITALS (7 sets, daily range): BP systolic 116–146; BP diastolic 51–88
[2019-07-20] MEDS: PIPERACILLIN/TAZOBACTAM 4.5 GM in IV NORMAL SALINE 100ML 100 ML IV SCH ×5 (00:51→23:32)
[2019-07-20] MEDS: INSULIN LISPRO 300 UNITS/3 ML VIAL. SQ SCH ×3 (08:00→16:35)
[2019-07-20] MEDS: PILOCARPINE 5 MG TABLET. PO SCH ×3 (09:19→21:11)
[2019-07-20] MEDS: acetaZOLAMIDE SODIUM 500 MG VIAL. IVP SCH (09:19)
[2019-07-20] MEDS: DIVALPROEX EXTENDED RELEASE 500 MG TAB.ER.24H. PO SCH ×2 (09:20→21:11)
[2019-07-20] MEDS: LEVOTHYROXINE 175 MCG TABLET PO SCH (09:20)
[2019-07-20] MEDS: PREGABALIN 75 MG CAPSULE PO SCH ×3 (09:21→21:13)
[2019-07-20] MEDS: DOCUSATE SODIUM 100 MG CAPSULE. PO SCH ×2 (09:21→21:13)
[2019-07-20] MEDS: amLODIPine BESYLATE 5 MG TABLET PO SCH (09:22)
[2019-07-20] MEDS: LACTOBACILLUS RHAMNOSUS GG 1 CAPSULE. PO SCH ×2 (09:22→21:11)
[2019-07-20 09:35] LABS: CALCIUM 9.1 mg/dL (8.5-10.1); CREATININE 0.5 mg/dL (0.6-1.0); GFR 124.2; POTASSIUM 3.2 mmol/L (3.5-5.1)
--- NOTE | 2019-07-20 09:57 | PDOC ---
Infectious Disease Note Subjective: Subjective Pt is more alert today says feels ok off bipap on nasal o2 fever pattern improved ROS: ROS D/W RN Vital Signs: Vital Signs Vital Signs Date Time Temp Pulse Resp B/P (MAP) Pulse Ox O2 Delivery O2 Flow Rate FiO2 07/20/19 09:22 63 120/52 07/20/19 09:12 92 Nasal Cannula 4.0 07/20/19 07:30 100.0 23 100.0 Physical Exam: PHYSICAL EXAM GENERAL: Alert, cooperative ,comfortable HEENT: Normocephalic, atraumatic, anicteric. NECK: Supple. LUNGS: Decreased breath sounds. HEART: S1, S2. No gallops or murmurs. ABDOMEN: Soft, nontender and obese. Bowel sounds present. EXTREMITIES: No edema, no cyanosis. NEUROLOGIC: Alert and awake, on BiPAP. Moves all 4 extremities. Grossly nonfocal. GENITOURINARY: External urinary catheter in place. Medications: Inpatient Meds: Current Medications Medications (Trade) Dose Ordered Sig/Holden Start Time Stop Time Status Last Admin Dose Admin Acetaminophen (Tylenol) 500 mg PRN DAILY PRN 07/18/19 09:00 07/19/19 17:02 500 MG Acetazolamide Sodium (Diamox Inj) 500 mg DAILY 07/20/19 09:00 07/20/19 09:22 500 MG Albumin Human 500 ml @ 125 mls/hr 1X ONCE 07/19/19 03:00 07/19/19 06:59 DC 07/19/19 03:37 125 MLS/HR Albuterol Sulfate (Ventolin Neb Soln) 2.5 mg PRN Q4HRS 07/18/19 16:15 Albuterol/ Ipratropium (Duoneb) 3 ml 1X ONCE 07/18/19 12:45 07/18/19 12:46 DC 07/18/19 17:56 3 ML Amlodipine Besylate (Norvasc) 5 mg DAILY 07/18/19 17:00 07/20/19 09:22 5 MG Budesonide (Pulmicort) 2 mg RTBID 07/18/19 20:00 07/18/19 20:59 DC 07/18/19 20:42 0.5 MG Dextrose 250 ml PRN Q15MIN PRN 07/18/19 16:45 Dextrose (Dextrose 50%-Water Syringe) 12.5 gm PRN Q15MIN PRN 07/18/19 16:45 Divalproex Sodium (Depakote Er) 1,000 mg QHS 07/18/19 21:00 07/19/19 21:21 1,000 MG Docusate Sodium (Colace) 100 mg BID 07/18/19 21:00 07/20/19 09:22 100 MG Enoxaparin Sodium (Lovenox 60mg Syringe) 60 mg Q12HR 07/18/19 21:00 07/20/19 09:22 60 MG Furosemide (Lasix) 40 mg 1X ONCE 07/18/19 14:45 07/18/19 14:47 DC 07/18/19 15:48 40 MG Insulin Human Lispro (HumaLOG) 0-7 UNITS TIDWMEALS 07/18/19 17:00 Ketorolac Tromethamine (Toradol 15mg Vial) 15 mg 1X ONCE 07/18/19 21:00 07/18/19 21:01 DC 07/18/19 22:28 15 MG Lactobacillus Rhamnosus (Culturelle) 1 cap BID 07/19/19 21:00 07/20/19 09:22 1 CAP Levothyroxine Sodium (Synthroid) 175 mcg DAILY 07/18/19 17:00 07/20/19 09:22 175 MCG Magnesium Sulfate 100 ml @ 25 mls/hr 1X ONCE 07/18/19 16:30 07/18/19 20:29 DC 07/18/19 18:02 25 MLS/HR Pilocarpine HCl (Salagen) 10 mg TID 07/18/19 21:00 07/20/19 09:22 10 MG Piperacillin Sod/ Tazobactam Sod 3.375 gm/Sodium Chloride 50 ml @ 100 mls/hr Q6HRS 07/18/19 21:00 07/19/19 10:55 DC 07/19/19 06:19 100 MLS/HR Piperacillin Sod/ Tazobactam Sod 4.5 gm/Sodium Chloride 100 ml @ 200 mls/hr Q6HRS 07/19/19 12:00 07/20/19 06:12 200 MLS/HR Polyethylene Glycol (miraLAX PACKET) 17 gm PRN DAILY PRN 07/18/19 16:15 Pregabalin (Lyrica) 75 mg TID 07/18/19 21:00 07/20/19 09:22 75 MG Risperidone (RisperDAL) 1 mg QHS 07/18/19 21:00 07/19/19 21:22 1 MG Sodium Chloride 1,000 ml @ 100 mls/hr Q10H 07/18/19 12:25 07/18/19 22:24 DC 07/18/19 13:14 100 MLS/HR Tramadol HCl (Ultram) 75 mg PRN TID PRN 07/18/19 16:15 07/19/19 14:13 75 MG Trazodone HCl (Desyrel) 50 mg QHS 07/18/19 21:00 07/19/19 21:21 50 MG Vancomycin HCl (Vanco Per Pharmacy) 1 each PRN DAILY PRN 07/18/19 20:30 07/19/19 10:54 DC 07/18/19 20:28 1 EACH Vancomycin HCl (Vancomycin Trough Level) 1 each 1X ONCE 07/20/19 08:30 07/20/19 08:31 Cancel Vancomycin HCl 1 gm/Sodium Chloride 250 ml @ 250 mls/hr 1X ONCE 07/18/19 20:30 07/19/19 10:54 DC 07/18/19 23:09 250 MLS/HR Vancomycin HCl 2 gm/Sodium Chloride 500 ml @ 250 mls/hr Q12H 07/19/19 09:00 07/19/19 10:54 DC 07/19/19 08:47 250 MLS/HR Vitamin D (Vitamin D3) 5,000 unit WEEKLY 07/18/19 17:00 07/18/19 18:02 5,000 UNIT Labs: Lab Laboratory Tests Test 07/19/19 10:45 07/19/19 11:37 07/19/19 13:15 07/19/19 15:04 O2 Saturation 97 % (92-99) 86 % (92-99) Arterial Blood pH 7.32 (7.35-7.45) 7.34 (7.35-7.45) Arterial Blood pCO2 at Patient Temp 71 mmHg (35-46) 70 mmHg (35-46) Arterial Blood pO2 at Patient Temp 95 mmHg (65-108) 52 mmHg (65-108) Arterial Blood HCO3 36 mmol/L (21-28) 37 mmol/L (21-28) Arterial Blood Base Excess 7 mmol/L (-3-3) 9 mmol/L (-3-3) FiO2 40 25 Glucose (Fingerstick) 78 mg/dL (70-99) 91 mg/dL (70-99) Test 07/19/19 20:59 07/20/19 07:52 07/20/19 08:45 Glucose (Fingerstick) 120 mg/dL (70-99) 90 mg/dL (70-99) Sodium Level 141 mmol/L (136-145) Potassium Level 3.2 mmol/L (3.5-5.1) Chloride Level 100 mmol/L (98-107) Carbon Dioxide Level 33 mmol/L (21-32) Anion Gap 8 (6-14) Blood Urea Nitrogen 12 mg/dL (7-20) Creatinine 0.5 mg/dL (0.6-1.0) Estimated GFR (Cockcroft-Gault) 124.2 Glucose Level 89 mg/dL (70-99) Calcium Level 9.1 mg/dL (8.5-10.1) Objective: Assessment: 1. Sepsis from Gram negative bacteremia 2. Gram-negative bacteremia, source genitourinary. ID and RITA pending 3. Gram-negative brandon positive in urine culture. 4. Acute respiratory failure, on BiPAP. 5. Congestive heart failure. 6. Bronchitis. 7. Fever. 8. longterm resident. 9. Diabetes mellitus. 10. Bipolar disorder and anxiety. Plan: Plan of Care Continue Zosyn. F/U CT abdomen and pelvis f/u labs in am Follow up ID and RITA of Gram-negative brandon in blood cultures. Follow up ID and RITA of Gram-negative brandon and urine cultures. Continue supportive care. D/W MITZI GUILLAUME MD Jul 20, 2019 09:57
--- NOTE | 2019-07-20 11:44 | PDOC ---
PROGRESS NOTES Chief Complaint Chief Complaint sepsis Acute hypoxic respiratory failure Dysuria - UTI Alkalosis - possibly from diuresis Bipolar Disorder - with anxiety and depression. COPD w. acute exacerbation Constipation - Diabetes-Type II - sliding scale in house GERD - cont meds High Cholesterol - cont statin Hypertension - cont meds Hypothyroid - will check TSH, cont meds AJ on CPAP - 9cm H2O QHS at [facility]. Continue History of Present Illness History of Present Illness off bipap, doing much better talkative and alert today PULM and ID consult following will monitor Vitals Vitals Vital Signs Date Time Temp Pulse Resp B/P (MAP) Pulse Ox O2 Delivery O2 Flow Rate FiO2 07/20/19 09:22 63 120/52 07/20/19 09:12 92 Nasal Cannula 4.0 07/20/19 07:30 100.0 23 100.0 Physical Exam Physical Exam GENERAL: Alert, cooperative ,comfortable HEENT: Normocephalic, atraumatic, anicteric. NECK: Supple. LUNGS: Decreased breath sounds. HEART: S1, S2. No gallops or murmurs. ABDOMEN: Soft, nontender and obese. Bowel sounds present. EXTREMITIES: No edema, no cyanosis. NEUROLOGIC: Alert and awake, on BiPAP. Moves all 4 extremities. Grossly nonfocal. GENITOURINARY: External urinary catheter in place. General: Alert, Cooperative, mild distress Lungs: Wheezing Abdomen: Normal bowel sounds, Soft, No tenderness, No hepatosplenomegaly, No masses Extremities: No clubbing, No cyanosis, Normal pulses, Other (1+ pedal edema, venous stasis dermatitis. Gluteal skin breakdown) Skin: No rashes, Other Labs LABS Laboratory Tests Test 07/19/19 13:15 07/19/19 15:04 07/19/19 20:59 07/20/19 07:52 O2 Saturation 86 % (92-99) Arterial Blood pH 7.34 (7.35-7.45) Arterial Blood pCO2 at Patient Temp 70 mmHg (35-46) Arterial Blood pO2 at Patient Temp 52 mmHg (65-108) Arterial Blood HCO3 37 mmol/L (21-28) Arterial Blood Base Excess 9 mmol/L (-3-3) FiO2 25 Glucose (Fingerstick) 91 mg/dL (70-99) 120 mg/dL (70-99) 90 mg/dL (70-99) Test 07/20/19 08:45 Sodium Level 141 mmol/L (136-145) Potassium Level 3.2 mmol/L (3.5-5.1) Chloride Level 100 mmol/L (98-107) Carbon Dioxide Level 33 mmol/L (21-32) Anion Gap 8 (6-14) Blood Urea Nitrogen 12 mg/dL (7-20) Creatinine 0.5 mg/dL (0.6-1.0) Estimated GFR (Cockcroft-Gault) 124.2 Glucose Level 89 mg/dL (70-99) Calcium Level 9.1 mg/dL (8.5-10.1) Assessment and Plan Assessmemt and Plan Problems Medical Problems: (1) Alkalosis Status: Acute (2) Bipolar disorder Status: Chronic (3) COPD (chronic obstructive pulmonary disease) Status: Chronic (4) DM2 (diabetes mellitus, type 2) Status: Chronic (5) Dyspnea Status: Acute (6) Dysuria Status: Acute (7) GERD (gastroesophageal reflux disease) Status: Chronic (8) High cholesterol Status: Chronic (9) Hypothyroid Status: Chronic (10) Hypoxia Status: Acute Comment Review of Relevant I have reviewed the following items katie (where applicable) has been applied. Labs Laboratory Tests Test 07/18/19 13:00 07/18/19 13:50 07/18/19 15:05 07/18/19 16:30 White Blood Count 7.8 x10^3/uL (4.0-11.0) Red Blood Count 4.69 x10^6/uL (3.50-5.40) Hemoglobin 13.0 g/dL (12.0-15.5) Hematocrit 39.2 % (36.0-47.0) Mean Corpuscular Volume 84 fL (79-100) Mean Corpuscular Hemoglobin 28 pg (25-35) Mean Corpuscular Hemoglobin Concent 33 g/dL (31-37) Red Cell Distribution Width 14.5 % (11.5-14.5) Platelet Count 174 x10^3/uL (140-400) Neutrophils (%) (Auto) 79 % (31-73) Lymphocytes (%) (Auto) 11 % (24-48) Monocytes (%) (Auto) 10 % (0-9) Eosinophils (%) (Auto) 1 % (0-3) Basophils (%) (Auto) 0 % (0-3) Neutrophils # (Auto) 6.1 x10^3/uL (1.8-7.7) Lymphocytes # (Auto) 0.8 x10^3/uL (1.0-4.8) Monocytes # (Auto) 0.8 x10^3/uL (0.0-1.1) Eosinophils # (Auto) 0.1 x10^3/uL (0.0-0.7) Basophils # (Auto) 0.0 x10^3/uL (0.0-0.2) Prothrombin Time 13.8 SEC (11.7-14.0) Prothromb Time International Ratio 1.1 (0.8-1.1) Sodium Level 139 mmol/L (136-145) Potassium Level 4.6 mmol/L (3.5-5.1) Chloride Level 100 mmol/L (98-107) Carbon Dioxide Level 38 mmol/L (21-32) Anion Gap 1 (6-14) Blood Urea Nitrogen 13 mg/dL (7-20) Creatinine 0.6 mg/dL (0.6-1.0) Estimated GFR (Cockcroft-Gault) 100.6 BUN/Creatinine Ratio 22 (6-20) Glucose Level 95 mg/dL (70-99) Lactic Acid Level 1.1 mmol/L (0.4-2.0) Calcium Level 9.2 mg/dL (8.5-10.1) Magnesium Level 1.5 mg/dL (1.8-2.4) Total Bilirubin 0.4 mg/dL (0.2-1.0) Aspartate Amino Transf (AST/SGOT) 14 U/L (15-37) Alanine Aminotransferase (ALT/SGPT) 12 U/L (14-59) Alkaline Phosphatase 97 U/L (46-116) Troponin I Quantitative 0.050 ng/mL (0.000-0.055) YC-Vcp-A-Type Natriuretic Peptide 2328 pg/mL (0-124) Total Protein 7.3 g/dL (6.4-8.2) Albumin 2.6 g/dL (3.4-5.0) Albumin/Globulin Ratio 0.6 (1.0-1.7) Phosphorus Level 4.3 mg/dL (2.6-4.7) Procalcitonin 1.33 ng/mL (0.00-0.10) Thyroid Stimulating Hormone (TSH) 1.099 uIU/mL (0.358-3.74) Valproic Acid (Depakene) Level 53 mcg/mL (50-100) Valproic Acid Last Dose Date Unk Valproic Acid Last Dose Time Unk Urine Collection Type U cath Urine Color Yellow Urine Clarity Turbid Urine pH 5.5 Urine Specific Gaylord 1.015 Urine Protein 30 mg/dL (NEG-TRACE) Urine Glucose (UA) Negative mg/dL (NEG) Urine Ketones (Stick) Negative mg/dL (NEG) Urine Blood Large (NEG) Urine Nitrite Positive (NEG) Urine Bilirubin Negative (NEG) Urine Urobilinogen Dipstick 0.2 mg/dL (0.2 mg/dL) Urine Leukocyte Esterase Large (NEG) Urine RBC >40 /HPF (0-2) Urine WBC Tntc /HPF (0-4) Urine Squamous Epithelial Cells Few /LPF Urine Bacteria Many /HPF (0-FEW) Urine Mucus Marked /LPF Influenza Type A Antigen Negative (NEGATIVE) Influenza Type B Antigen Negative (NEGATIVE) Test 07/18/19 16:47 07/18/19 17:55 07/18/19 21:07 07/19/19 01:00 Glucose (Fingerstick) 65 mg/dL (70-99) 123 mg/dL (70-99) O2 Saturation 86 % (92-99) Arterial Blood pH 7.39 (7.35-7.45) Arterial Blood pCO2 at Patient Temp 64 mmHg (35-46) Arterial Blood pO2 at Patient Temp 50 mmHg (65-108) Arterial Blood HCO3 38 mmol/L (21-28) Arterial Blood Base Excess 10 mmol/L (-3-3) FiO2 4 lpm nc Troponin I Quantitative 0.118 ng/mL (0.000-0.055) Test 07/19/19 02:49 07/19/19 06:05 07/19/19 07:25 07/19/19 09:24 O2 Saturation 93 % (92-99) Arterial Blood pH 7.36 (7.35-7.45) Arterial Blood pCO2 at Patient Temp 72 mmHg (35-46) Arterial Blood pO2 at Patient Temp 72 mmHg (65-108) Arterial Blood HCO3 40 mmol/L (21-28) Arterial Blood Base Excess 12 mmol/L (-3-3) FiO2 50 White Blood Count 6.3 x10^3/uL (4.0-11.0) Red Blood Count 4.11 x10^6/uL (3.50-5.40) Hemoglobin 11.2 g/dL (12.0-15.5) Hematocrit 34.8 % (36.0-47.0) Mean Corpuscular Volume 85 fL (79-100) Mean Corpuscular Hemoglobin 27 pg (25-35) Mean Corpuscular Hemoglobin Concent 32 g/dL (31-37) Red Cell Distribution Width 14.7 % (11.5-14.5) Platelet Count 142 x10^3/uL (140-400) Neutrophils (%) (Auto) 65 % (31-73) Lymphocytes (%) (Auto) 17 % (24-48) Monocytes (%) (Auto) 16 % (0-9) Eosinophils (%) (Auto) 1 % (0-3) Basophils (%) (Auto) 0 % (0-3) Neutrophils # (Auto) 4.1 x10^3/uL (1.8-7.7) Lymphocytes # (Auto) 1.1 x10^3/uL (1.0-4.8) Monocytes # (Auto) 1.0 x10^3/uL (0.0-1.1) Eosinophils # (Auto) 0.0 x10^3/uL (0.0-0.7) Basophils # (Auto) 0.0 x10^3/uL (0.0-0.2) Sodium Level 141 mmol/L (136-145) Potassium Level 3.3 mmol/L (3.5-5.1) Chloride Level 99 mmol/L (98-107) Carbon Dioxide Level 40 mmol/L (21-32) Anion Gap 2 (6-14) Blood Urea Nitrogen 16 mg/dL (7-20) Creatinine 0.7 mg/dL (0.6-1.0) Estimated GFR (Cockcroft-Gault) 84.2 Glucose Level 105 mg/dL (70-99) Calcium Level 9.0 mg/dL (8.5-10.1) Troponin I Quantitative 0.059 ng/mL (0.000-0.055) Glucose (Fingerstick) 103 mg/dL (70-99) Lactic Acid Level 1.2 mmol/L (0.4-2.0) Test 07/19/19 10:45 07/19/19 11:37 07/19/19 13:15 07/19/19 15:04 O2 Saturation 97 % (92-99) 86 % (92-99) Arterial Blood pH 7.32 (7.35-7.45) 7.34 (7.35-7.45) Arterial Blood pCO2 at Patient Temp 71 mmHg (35-46) 70 mmHg (35-46) Arterial Blood pO2 at Patient Temp 95 mmHg (65-108) 52 mmHg (65-108) Arterial Blood HCO3 36 mmol/L (21-28) 37 mmol/L (21-28) Arterial Blood Base Excess 7 mmol/L (-3-3) 9 mmol/L (-3-3) FiO2 40 25 Glucose (Fingerstick) 78 mg/dL (70-99) 91 mg/dL (70-99) Test 07/19/19 20:59 07/20/19 07:52 07/20/19 08:45 Glucose (Fingerstick) 120 mg/dL (70-99) 90 mg/dL (70-99) Sodium Level 141 mmol/L (136-145) Potassium Level 3.2 mmol/L (3.5-5.1) Chloride Level 100 mmol/L (98-107) Carbon Dioxide Level 33 mmol/L (21-32) Anion Gap 8 (6-14) Blood Urea Nitrogen 12 mg/dL (7-20) Creatinine 0.5 mg/dL (0.6-1.0) Estimated GFR (Cockcroft-Gault) 124.2 Glucose Level 89 mg/dL (70-99) Calcium Level 9.1 mg/dL (8.5-10.1) Laboratory Tests Test 07/19/19 13:15 07/19/19 15:04 07/19/19 20:59 07/20/19 07:52 O2 Saturation 86 % (92-99) Arterial Blood pH 7.34 (7.35-7.45) Arterial Blood pCO2 at Patient Temp 70 mmHg (35-46) Arterial Blood pO2 at Patient Temp 52 mmHg (65-108) Arterial Blood HCO3 37 mmol/L (21-28) Arterial Blood Base Excess 9 mmol/L (-3-3) FiO2 25 Glucose (Fingerstick) 91 mg/dL (70-99) 120 mg/dL (70-99) 90 mg/dL (70-99) Test 07/20/19 08:45 Sodium Level 141 mmol/L (136-145) Potassium Level 3.2 mmol/L (3.5-5.1) Chloride Level 100 mmol/L (98-107) Carbon Dioxide Level 33 mmol/L (21-32) Anion Gap 8 (6-14) Blood Urea Nitrogen 12 mg/dL (7-20) Creatinine 0.5 mg/dL (0.6-1.0) Estimated GFR (Cockcroft-Gault) 124.2 Glucose Level 89 mg/dL (70-99) Calcium Level 9.1 mg/dL (8.5-10.1) Microbiology 07/19/19 Blood Culture - Preliminary, Resulted NO GROWTH AFTER 1 DAY Medications Current Medications Sodium Chloride 1,000 ml @ 100 mls/hr Q10H IV Last administered on 07/18/19at 13:14; Start 07/18/19 at 12:25; Stop 07/18/19 at 22:24; Status DC Piperacillin Sod/ Tazobactam Sod 3.375 gm/Sodium Chloride 50 ml @ 100 mls/hr 1X ONCE IV Last administered on 07/18/19at 13:14; Start 07/18/19 at 12:45; Stop 07/18/19 at 13:14; Status DC Vancomycin HCl 250 ml @ 250 mls/hr 1X ONCE IV Last administered on 07/18/19at 13:58; Start 07/18/19 at 12:45; Stop 07/18/19 at 13:44; Status DC Albuterol/ Ipratropium (Duoneb) 3 ml 1X ONCE NEB Last administered on 07/18/19at 17:56; Start 07/18/19 at 12:45; Stop 07/18/19 at 12:46; Status DC Furosemide (Lasix) 40 mg 1X ONCE IVP Last administered on 07/18/19at 15:48; Start 07/18/19 at 14:45; Stop 07/18/19 at 14:47; Status DC Magnesium Sulfate 100 ml @ 25 mls/hr 1X ONCE IV Last administered on 07/18/19at 18:02; Start 07/18/19 at 16:30; Stop 07/18/19 at 20:29; Status DC Acetaminophen (Tylenol) 500 mg PRN DAILY PRN PO HEADACHE / TEMP Last ad ministered on 07/19/19 17:02; Start 07/18/19 at 09:00 Albuterol Sulfate (Ventolin Neb Soln) 2.5 mg PRN Q4HRS NEB ; Start 07/18/19 at 16:15 Amlodipine Besylate (Norvasc) 5 mg DAILY PO Last administered on 07/20/19 09:22; Start 07/18/19 at 17:00 Budesonide (Pulmicort) 2 mg RTBID NEB Last administered on 07/18/19 20:42; Start 07/18/19 at 20:00; Stop 07/18/19 at 20:59; Status DC Vitamin D (Vitamin D3) 5,000 unit WEEKLY PO Last administered on 07/18/19 18:02; Start 07/18/19 at 17:00 Divalproex Sodium (Depakote Er) 500 mg DAILY PO Last administered on 07/20/19 09:22; Start 07/19/19 at 09:00 Divalproex Sodium (Depakote Er) 1,000 mg QHS PO Last administered on 07/19/19 21:21; Start 07/18/19 at 21:00 Docusate Sodium (Colace) 100 mg BID PO Last administered on 07/20/19 09:22; Start 07/18/19 at 21:00 Levothyroxine Sodium (Synthroid) 175 mcg DAILY PO Last administered on 07/20/19 09:22; Start 07/18/19 at 17:00 Pilocarpine HCl (Salagen) 10 mg TID PO Last administered on 07/20/19 09:22; Start 07/18/19 at 21:00 Polyethylene Glycol (miraLAX PACKET) 17 gm PRN DAILY PRN PO CONSTIPATION; Start 07/18/19 at 16:15 Pregabalin (Lyrica) 75 mg TID PO Last administered on 07/20/19 09:22; Start 07/18/19 at 21:00 Risperidone (RisperDAL) 1 mg QHS PO Last administered on 07/19/19 21:22; Start 07/18/19 at 21:00 Tramadol HCl (Ultram) 75 mg PRN TID PRN PO PAIN MILD TO MOD Last administered on 07/19/19at 14:13; Start 07/18/19 at 16:15 Trazodone HCl (Desyrel) 50 mg QHS PO Last administered on 07/19/19at 21:21; Start 07/18/19 at 21:00 Enoxaparin Sodium (Lovenox 60mg Syringe) 60 mg Q12HR SQ Last administered on 07/20/19at 09:22; Start 07/18/19 at 21:00 Insulin Human Lispro (HumaLOG) 0-7 UNITS TIDWMEALS SQ ; Start 07/18/19 at 17:00 Dextrose (Dextrose 50%-Water Syringe) 12.5 gm PRN Q15MIN PRN IV SEE COMMENTS; Start 07/18/19 at 16:45 Dextrose 250 ml PRN Q15MIN PRN IV SEE COMMENTS; Start 07/18/19 at 16:45 Vancomycin HCl (Vanco Per Pharmacy) 1 each PRN DAILY PRN MC SEE COMMENTS Last administered on 07/18/19at 20:28; Start 07/18/19 at 20:30; Stop 07/19/19 at 10:54; Status DC Vancomycin HCl 2 gm/Sodium Chloride 500 ml @ 250 mls/hr Q12H IV Last administered on 07/19/19at 08:47; Start 07/19/19 at 09:00; Stop 07/19/19 at 10:54; Status DC Piperacillin Sod/ Tazobactam Sod 3.375 gm/Sodium Chloride 50 ml @ 100 mls/hr Q6HRS IV Last administered on 07/19/19at 06:19; Start 07/18/19 at 21:00; Stop 07/19/19 at 10:55; Status DC Vancomycin HCl 1 gm/Sodium Chloride 250 ml @ 250 mls/hr 1X ONCE IV Last administered on 07/18/19at 23:09; Start 07/18/19 at 20:30; Stop 07/19/19 at 10:54; Status DC Ketorolac Tromethamine (Toradol 15mg Vial) 15 mg 1X ONCE IV Last administered on 07/18/19at 22:28; Start 07/18/19 at 21:00; Stop 07/18/19 at 21:01; Status DC Vancomycin HCl (Vancomycin Trough Level) 1 each 1X ONCE MC ; Start 07/20/19 at 08:30; Stop 07/20/19 at 08:31; Status Cancel Albumin Human 100 ml @ 100 mls/hr 1X ONCE IV Last administered on 07/19/19at 00:25; Start 07/19/19 at 00:15; Stop 07/19/19 at 01:14; Status DC Albumin Human 500 ml @ 125 mls/hr 1X ONCE IV Last administered on 07/19/19at 03:37; Start 07/19/19 at 03:00; Stop 07/19/19 at 06:59; Status DC Acetazolamide Sodium (Diamox Inj) 500 mg 1X ONCE IVP Last administered on 07/19/19at 03:37; Start 07/19/19 at 03:15; Stop 07/19/19 at 03:16; Status DC Acetazolamide Sodium (Diamox Inj) 500 mg DAILY ONCE IVP ; Start 07/19/19 at 09:00; Stop 07/19/19 at 05:02; Status DC Acetazolamide Sodium (Diamox Inj) 500 mg DAILY IVP Last administered on 07/20/19at 09:22; Start 07/20/19 at 09:00 Piperacillin Sod/ Tazobactam Sod 4.5 gm/Sodium Chloride 100 ml @ 200 mls/hr Q6HRS IV Last administered on 07/20/19at 06:12; Start 07/19/19 at 12:00 Lactobacillus Rhamnosus (Culturelle) 1 cap BID PO Last administered on 07/20/19at 09:22; Start 07/19/19 at 21:00 Active Scripts Active Reported Xiidra (Lifitegrast) 1 Each Droperette 1 Each OP BID Vitamin D (Cholecalciferol (Vitamin D3)) 5,000 Unit Capsule 5,000 Unit PO WEEKLY Tylenol Extra Strength (Acetaminophen) 500 Mg Tablet 2 Mg PO DAILY Trazodone Hcl 50 Mg Tablet 1 Tab PO QHS Tramadol Hcl 50 Mg Tablet 75 Mg PO TID PRN Xarelto (Rivaroxaban) 20 Mg Tablet 20 Mg PO DAILY Risperdal (Risperidone) 1 Mg Tablet 1 Mg PO QHS Proventil Hfa Inhaler (Albuterol Sulfate) 6.7 Gm Hfa.aer.ad 1 Puff IH PRN Q4HRS PRN Protonix (Pantoprazole Sodium) 20 Mg Tablet.dr 40 Mg PO DAILY Potassium Chloride 20 Meq Tablet.er 20 Meq PO DAILY Miralax (Polyethylene Glycol 3350) 17 Gm Powd.pack 1 Packet PO DAILY PRN Pilocarpine Hcl 5 Mg Tablet 10 Mg PO TID Meclizine Hcl 25 Mg Tablet 1 Tab PO TID Lyrica (Pregabalin) 75 Mg Capsule 1 Cap PO TID Loratadine 10 Mg Tablet 1 Tab PO DAILY Levothyroxine Sodium 175 Mcg Tablet 1 Tab PO DAILY Lasix (Furosemide) 20 Mg Tablet 1 Tab PO DAILY Hydroxyzine Hcl 25 Mg Tablet 1 Tab PO BID Divalproex Sodium Er (Divalproex Sodium) 500 Mg Tab.er.24h 2 Tab PO QHS Divalproex Sodium Er (Divalproex Sodium) 500 Mg Tab.er.24h 1 Tab PO DAILY Colace (Docusate Sodium) 100 Mg Capsule 1 Cap PO BID Celexa (Citalopram Hydrobromide) 40 Mg Tablet 1 Tab PO DAILY Celebrex (Celecoxib) 200 Mg Capsule 1 Cap PO DAILY Budesonide 0.5 Mg/2 Ml Ampul.neb 1 Vial NEB BID Biofreeze (Menthol) 118 Ml Gel..ml. 118 Ml TP TID Baclofen 10 Mg Tablet 1 Tab PO TID Artificial Tears Eye Drops (Dextran 70/Hypromellose) 15 Ml Drops 1 Drop EACHEYE PRN PRN Amlodipine Besylate 5 Mg Tablet 5 Mg PO DAILY Albuterol Sulfate Neb Soln (Albuterol Sulfate) 2.5 Mg/3 Ml Vial.neb 1 Vial NEB PRN Q4HRS Vitals/I & O Vital Sign - Last 24 Hours 07/19/19 07/19/19 07/19/19 07/19/19 13:08 13:34 14:13 15:00 Temp 98.1 98.1 Pulse 85 Resp 18 B/P (MAP) 132/69 (90) Pulse Ox 88 88 O2 Delivery BiPAP/CPAP BiPAP/CPAP BiPAP/CPAP BiPAP/CPAP 07/19/19 07/19/19 07/19/19 07/19/19 16:37 19:36 19:53 21:10 Pulse 70 Resp 20 B/P (MAP) 109/51 (70) Pulse Ox 93 94 93 O2 Delivery BiPAP/CPAP Bi-pap BiPAP/CPAP BiPAP/CPAP 07/19/19 07/20/19 07/20/19 07/20/19 23:37 00:51 01:45 03:29 Temp 99.1 99.6 99.1 99.6 Pulse 74 68 Resp 20 22 B/P (MAP) 116/65 (82) 146/67 (93) Pulse Ox 94 92 O2 Delivery BiPAP/CPAP BiPAP/CPAP BiPAP/CPAP BiPAP/CPAP 07/20/19 07/20/19 07/20/19 07/20/19 03:35 07:30 07:56 08:00 Temp 100.0 100.0 Pulse 63 Resp 23 B/P (MAP) 120/52 (74) Pulse Ox 95 O2 Delivery BiPAP/CPAP BiPAP/CPAP BiPAP/CPAP Nasal Cannula O2 Flow Rate 4.0 07/20/19 07/20/19 09:12 09:22 Pulse 63 B/P (MAP) 120/52 Pulse Ox 92 O2 Delivery Nasal Cannula O2 Flow Rate 4.0 Intake and Output 07/19/19 07/19/19 07/20/19 15:00 23:00 07:00 Intake Total 350 ml Output Total 425 ml 500 ml 1450 ml Balance -425 ml -150 ml -1450 ml RHONA OWENS MD Jul 20, 2019 11:43
--- NOTE | 2019-07-20 14:42 | RAD ---
CT Abdomen and Pelvis without contrast History: Urinary tract infection Technique: Noncontrast CT imaging was performed of the abdomen and pelvis. Multiplanar images are reviewed. Exposure: One or more of the following individualized dose reduction techniques were utilized for this examination: 1. Automated exposure control 2. Adjustment of the mA and/or kV according to patient size 3. Use of iterative reconstruction technique. Comparison: None Findings: There is some motion degradation. There is artifact created by patient's arms near sides.There is very mild right hydronephrosis. No ureteral calculus is identified on either side. There are about 6 right renal calculi, largest about 0.4 cm. There is a lobulated contour of the bilateral kidneys. There is no significant left renal calculus. Urinary bladder is somewhat distended. Heart is somewhat enlarged. There is dilatation of the visualized main pulmonary artery about 4.5 cm. There is some coronary calcification. There are some areas of mild infiltrate and atelectasis of the visualized lungs bilaterally, difficult to exclude a nodule of the left lower lobe at the base about 0.6 cm. There is no significant pleural fluid. Accurate evaluation of abdominal visceral organs is limited without intravenous contrast. No obvious focal abnormality is identified of the pancreas, liver, spleen. Gallbladder is present without obvious intraluminal abnormality by CT. Accurate evaluation of bowel is limited without oral contrast, no significant bowel dilatation. There is mild dependent free fluid pelvis. No free air is identified. There is retained stool variably in the colon. Normal appendix is visualized. Some nonspecific strandy change of the right ventral pelvic subcutaneous fat possibly due to sites of medication injection if corresponding history. There is multilevel lumbar facet degenerative change. Impression: 1. There is very mild right hydronephrosis, no ureteral calculus identified on either side. There are right renal calculi. Urinary bladder is somewhat distended. 2. There are scattered areas of infiltrate and atelectasis of the visualized lungs bilaterally. It is difficult to exclude a small noncalcified left lower lobe nodule on this motion degraded exam, optional 12 month follow-up of the nodule if increased risk factors for neoplasm as per revised Fleischner guidelines. 3. Heart is somewhat enlarged. There is dilatation of the visualized main pulmonary artery, evidence of pulmonary hypertension. There is some coronary calcification. 4. There is nonspecific mild dependent free fluid in the pelvis. Electronically signed by: Garth Santo MD (07/20/2019 2:40 PM) -[id number]
[2019-07-20] MEDS: traZODone 50 MG TABLET. PO SCH (21:13)
[2019-07-20] MEDS: risperiDONE 1 MG TABLET. PO SCH (21:13)
[2019-07-21 03:32] VITALS: BP 138/65
[2019-07-21 04:55] LABS: CREATININE 0.5 mg/dL (0.6-1.0); GFR 124.2; POTASSIUM 3.1 mmol/L (3.5-5.1)
[2019-07-21] MEDS: PIPERACILLIN/TAZOBACTAM 4.5 GM in IV NORMAL SALINE 100ML 100 ML IV SCH ×3 (05:45→18:07)
[2019-07-21 07:00] VITALS: BP 125/56
[2019-07-21] MEDS: INSULIN LISPRO 300 UNITS/3 ML VIAL. SQ SCH ×3 (07:52→17:00)
[2019-07-21] MEDS: acetaZOLAMIDE SODIUM 500 MG VIAL. IVP SCH (09:11)
[2019-07-21] MEDS: PILOCARPINE 5 MG TABLET. PO SCH ×3 (09:12→21:36)
[2019-07-21] MEDS: DIVALPROEX EXTENDED RELEASE 500 MG TAB.ER.24H. PO SCH ×2 (09:13→21:38)
[2019-07-21] MEDS: DOCUSATE SODIUM 100 MG CAPSULE. PO SCH ×2 (09:13→21:00)
[2019-07-21] MEDS: LEVOTHYROXINE 175 MCG TABLET PO SCH (09:13)
[2019-07-21] MEDS: PREGABALIN 75 MG CAPSULE PO SCH ×3 (09:13→21:37)
[2019-07-21] MEDS: LACTOBACILLUS RHAMNOSUS GG 1 CAPSULE. PO SCH ×2 (09:13→21:37)
[2019-07-21] MEDS: amLODIPine BESYLATE 5 MG TABLET PO SCH (09:14)
--- NOTE | 2019-07-21 10:08 | PDOC ---
PULMONARY PROGRESS NOTES Subjective off bipap answers some questions Vitals Vital Signs Date Time Temp Pulse Resp B/P (MAP) Pulse Ox O2 Delivery O2 Flow Rate FiO2 07/21/19 09:14 65 125/56 07/21/19 08:00 Nasal Cannula 4.0 07/21/19 07:00 98.1 20 92 98.1 General: Alert Lungs: Clear Cardiovascular: S1, S2 Abdomen: Soft, Other (obese) Extremities: Other (trace edema) Skin: Warm Labs Laboratory Tests Test 07/19/19 10:45 07/19/19 11:37 07/19/19 13:15 07/19/19 15:04 O2 Saturation 97 % (92-99) 86 % (92-99) Arterial Blood pH 7.32 (7.35-7.45) 7.34 (7.35-7.45) Arterial Blood pCO2 at Patient Temp 71 mmHg (35-46) 70 mmHg (35-46) Arterial Blood pO2 at Patient Temp 95 mmHg (65-108) 52 mmHg (65-108) Arterial Blood HCO3 36 mmol/L (21-28) 37 mmol/L (21-28) Arterial Blood Base Excess 7 mmol/L (-3-3) 9 mmol/L (-3-3) FiO2 40 25 Glucose (Fingerstick) 78 mg/dL (70-99) 91 mg/dL (70-99) Test 07/19/19 20:59 07/20/19 07:52 07/20/19 08:45 07/20/19 12:01 Glucose (Fingerstick) 120 mg/dL (70-99) 90 mg/dL (70-99) 94 mg/dL (70-99) Sodium Level 141 mmol/L (136-145) Potassium Level 3.2 mmol/L (3.5-5.1) Chloride Level 100 mmol/L (98-107) Carbon Dioxide Level 33 mmol/L (21-32) Anion Gap 8 (6-14) Blood Urea Nitrogen 12 mg/dL (7-20) Creatinine 0.5 mg/dL (0.6-1.0) Estimated GFR (Cockcroft-Gault) 124.2 Glucose Level 89 mg/dL (70-99) Calcium Level 9.1 mg/dL (8.5-10.1) Test 07/20/19 16:22 07/20/19 21:57 07/21/19 03:40 07/21/19 07:37 Glucose (Fingerstick) 94 mg/dL (70-99) 118 mg/dL (70-99) 95 mg/dL (70-99) Sodium Level 143 mmol/L (136-145) Potassium Level 3.1 mmol/L (3.5-5.1) Chloride Level 103 mmol/L (98-107) Carbon Dioxide Level 32 mmol/L (21-32) Anion Gap 8 (6-14) Blood Urea Nitrogen 9 mg/dL (7-20) Creatinine 0.5 mg/dL (0.6-1.0) Estimated GFR (Cockcroft-Gault) 124.2 Glucose Level 93 mg/dL (70-99) Calcium Level 9.0 mg/dL (8.5-10.1) Laboratory Tests Test 07/20/19 12:01 07/20/19 16:22 07/20/19 21:57 07/21/19 03:40 Glucose (Fingerstick) 94 mg/dL (70-99) 94 mg/dL (70-99) 118 mg/dL (70-99) Sodium Level 143 mmol/L (136-145) Potassium Level 3.1 mmol/L (3.5-5.1) Chloride Level 103 mmol/L (98-107) Carbon Dioxide Level 32 mmol/L (21-32) Anion Gap 8 (6-14) Blood Urea Nitrogen 9 mg/dL (7-20) Creatinine 0.5 mg/dL (0.6-1.0) Estimated GFR (Cockcroft-Gault) 124.2 Glucose Level 93 mg/dL (70-99) Calcium Level 9.0 mg/dL (8.5-10.1) Test 07/21/19 07:37 Glucose (Fingerstick) 95 mg/dL (70-99) Medications Active Scripts Medications Dose Route/Sig Max Daily Dose Days Date Category Xiidra (Lifitegrast) 1 Each Droperette 1 Each OP BID 02/02/19 Reported Vitamin D (Cholecalciferol (Vitamin D3)) 5,000 Unit Capsule 5,000 Unit PO WEEKLY 02/02/19 Reported Tylenol Extra Strength (Acetaminophen) 500 Mg Tablet 2 Mg PO DAILY 02/02/19 Reported Trazodone Hcl 50 Mg Tablet 1 Tab PO QHS 02/02/19 Reported Tramadol Hcl 50 Mg Tablet 75 Mg PO TID PRN 02/02/19 Reported Xarelto (Rivaroxaban) 20 Mg Tablet 20 Mg PO DAILY 02/02/19 Reported Risperdal (Risperidone) 1 Mg Tablet 1 Mg PO QHS 02/02/19 Reported Proventil Hfa Inhaler (Albuterol Sulfate) 6.7 Gm Hfa.aer.ad 1 Puff IH PRN Q4HRS PRN 02/02/19 Reported Protonix (Pantoprazole Sodium) 20 Mg Tablet.dr 40 Mg PO DAILY 02/02/19 Reported Potassium Chloride 20 Meq Tablet.er 20 Meq PO DAILY 02/02/19 Reported Miralax (Polyethylene Glycol 3350) 17 Gm Powd.pack 1 Packet PO DAILY PRN 02/02/19 Reported Pilocarpine Hcl 5 Mg Tablet 10 Mg PO TID 02/02/19 Reported Meclizine Hcl 25 Mg Tablet 1 Tab PO TID 02/02/19 Reported Lyrica (Pregabalin) 75 Mg Capsule 1 Cap PO TID 02/02/19 Reported Loratadine 10 Mg Tablet 1 Tab PO DAILY 02/02/19 Reported Levothyroxine Sodium 175 Mcg Tablet 1 Tab PO DAILY 02/02/19 Reported Lasix (Furosemide) 20 Mg Tablet 1 Tab PO DAILY 02/02/19 Reported Hydroxyzine Hcl 25 Mg Tablet 1 Tab PO BID 02/02/19 Reported Divalproex Sodium Er (Divalproex Sodium) 500 Mg Tab.er.24h 2 Tab PO QHS 02/02/19 Reported Divalproex Sodium Er (Divalproex Sodium) 500 Mg Tab.er.24h 1 Tab PO DAILY 02/02/19 Reported Colace (Docusate Sodium) 100 Mg Capsule 1 Cap PO BID 02/02/19 Reported Celexa (Citalopram Hydrobromide) 40 Mg Tablet 1 Tab PO DAILY 02/02/19 Reported Celebrex (Celecoxib) 200 Mg Capsule 1 Cap PO DAILY 02/02/19 Reported Budesonide 0.5 Mg/2 Ml Ampul.neb 1 Vial NEB BID 02/02/19 Reported Biofreeze (Menthol) 118 Ml Gel..ml. 118 Ml TP TID 02/02/19 Reported Baclofen 10 Mg Tablet 1 Tab PO TID 02/02/19 Reported Artificial Tears Eye Drops (Dextran 70/Hypromellose) 15 Ml Drops 1 Drop EACHEYE PRN PRN 02/02/19 Reported Amlodipine Besylate 5 Mg Tablet 5 Mg PO DAILY 02/02/19 Reported Albuterol Sulfate Neb Soln (Albuterol Sulfate) 2.5 Mg/3 Ml Vial.neb 1 Vial NEB PRN Q4HRS 02/02/19 Reported Impression . 1. Dshgu-ic-rgymsoi hypoxic and hypercapnic respiratory failure secondary to sepsis. 2. Underlying chronic obstructive pulmonary disease with chronic respiratory failure, on home oxygen at 2 liters. Now, requiring BiPAP. 3. High grade fever./sepsis. The etiologies could be multifactorial and possibility of pneumonia is a consideration. Influenza screen is negative. Need to consider other sources of infection as well. BC gram neg rods 4. Mildly increased troponin level. 5. Underlying bipolar disorder. Plan . 1. Repeat arterial blood gases improved. Avoid hyperoxia. we will continue BiPAP qhs and prn during the day 2. Continue broad-spectrum antibiotic. 3. Follow all cultures. 4. ID recommendation reg gram neg bacteremia 5. Lovenox for DVT prophylaxis. 6. Bronchodilators. 7. We will follow along with you. Discussed with LESLEY SOTO MD Jul 21, 2019 10:08
--- NOTE | 2019-07-21 10:44 | PDOC ---
Infectious Disease Note Subjective: Subjective Pt is sleepy says feels ok off bipap on nasal o2 fever pattern improved ROS: ROS Negative otherwise. Vital Signs: Vital Signs Vital Signs Date Time Temp Pulse Resp B/P (MAP) Pulse Ox O2 Delivery O2 Flow Rate FiO2 07/21/19 09:14 65 125/56 07/21/19 08:00 Nasal Cannula 4.0 07/21/19 07:00 98.1 20 92 98.1 Physical Exam: PHYSICAL EXAM GENERAL: Alert, cooperative ,comfortable HEENT: Normocephalic, atraumatic, anicteric. NECK: Supple. LUNGS: Decreased breath sounds. HEART: S1, S2. No gallops or murmurs. ABDOMEN: Soft, nontender and obese. Bowel sounds present. EXTREMITIES: No edema, no cyanosis. NEUROLOGIC: Alert and awake, on BiPAP. Moves all 4 extremities. Grossly nonfocal. GENITOURINARY: External urinary catheter in place. Medications: Inpatient Meds: Current Medications Medications (Trade) Dose Ordered Sig/Holden Start Time Stop Time Status Last Admin Dose Admin Acetaminophen (Tylenol) 500 mg PRN DAILY PRN 07/18/19 09:00 07/19/19 17:02 Acetazolamide Sodium (Diamox Inj) 500 mg DAILY 07/20/19 09:00 07/21/19 09:14 Albumin Human 500 ml @ 125 mls/hr 1X ONCE 07/19/19 03:00 07/19/19 06:59 DC 07/19/19 03:37 Albuterol Sulfate (Ventolin Neb Soln) 2.5 mg PRN Q4HRS 07/18/19 16:15 Albuterol/ Ipratropium (Duoneb) 3 ml 1X ONCE 07/18/19 12:45 07/18/19 12:46 DC 07/18/19 17:56 Amlodipine Besylate (Norvasc) 5 mg DAILY 07/18/19 17:00 07/21/19 09:14 Budesonide (Pulmicort) 2 mg RTBID 07/18/19 20:00 07/18/19 20:59 DC 07/18/19 20:42 Dextrose 250 ml PRN Q15MIN PRN 07/18/19 16:45 Dextrose (Dextrose 50%-Water Syringe) 12.5 gm PRN Q15MIN PRN 07/18/19 16:45 Divalproex Sodium (Depakote Er) 1,000 mg QHS 07/18/19 21:00 07/20/19 21:13 Docusate Sodium (Colace) 100 mg BID 07/18/19 21:00 07/21/19 09:14 Enoxaparin Sodium (Lovenox 60mg Syringe) 60 mg Q12HR 07/18/19 21:00 07/21/19 09:14 Furosemide (Lasix) 40 mg 1X ONCE 07/18/19 14:45 07/18/19 14:47 DC 07/18/19 15:48 Insulin Human Lispro (HumaLOG) 0-7 UNITS TIDWMEALS 07/18/19 17:00 Ketorolac Tromethamine (Toradol 15mg Vial) 15 mg 1X ONCE 07/18/19 21:00 07/18/19 21:01 DC 07/18/19 22:28 Lactobacillus Rhamnosus (Culturelle) 1 cap BID 07/19/19 21:00 07/21/19 09:14 Levothyroxine Sodium (Synthroid) 175 mcg DAILY 07/18/19 17:00 07/21/19 09:14 Magnesium Sulfate 100 ml @ 25 mls/hr 1X ONCE 07/18/19 16:30 07/18/19 20:29 DC 07/18/19 18:02 Pilocarpine HCl (Salagen) 10 mg TID 07/18/19 21:00 07/21/19 09:14 Piperacillin Sod/ Tazobactam Sod 3.375 gm/Sodium Chloride 50 ml @ 100 mls/hr Q6HRS 07/18/19 21:00 07/19/19 10:55 DC 07/19/19 06:19 Piperacillin Sod/ Tazobactam Sod 4.5 gm/Sodium Chloride 100 ml @ 200 mls/hr Q6HRS 07/19/19 12:00 07/21/19 05:45 Polyethylene Glycol (miraLAX PACKET) 17 gm PRN DAILY PRN 07/18/19 16:15 Pregabalin (Lyrica) 75 mg TID 07/18/19 21:00 07/21/19 09:14 Risperidone (RisperDAL) 1 mg QHS 07/18/19 21:00 07/20/19 21:13 Sodium Chloride 1,000 ml @ 100 mls/hr Q10H 07/18/19 12:25 07/18/19 22:24 DC 07/18/19 13:14 Tramadol HCl (Ultram) 75 mg PRN TID PRN 07/18/19 16:15 07/19/19 14:13 Trazodone HCl (Desyrel) 50 mg QHS 07/18/19 21:00 07/20/19 21:13 Vancomycin HCl (Vanco Per Pharmacy) 1 each PRN DAILY PRN 07/18/19 20:30 07/19/19 10:54 DC 07/18/19 20:28 Vancomycin HCl (Vancomycin Trough Level) 1 each 1X ONCE 07/20/19 08:30 07/20/19 08:31 Cancel Vancomycin HCl 1 gm/Sodium Chloride 250 ml @ 250 mls/hr 1X ONCE 07/18/19 20:30 07/19/19 10:54 DC 07/18/19 23:09 Vancomycin HCl 2 gm/Sodium Chloride 500 ml @ 250 mls/hr Q12H 07/19/19 09:00 07/19/19 10:54 DC 07/19/19 08:47 Vitamin D (Vitamin D3) 5,000 unit WEEKLY 07/18/19 17:00 07/18/19 18:02 Labs: Lab Laboratory Tests Test 07/20/19 12:01 07/20/19 16:22 07/20/19 21:57 07/21/19 03:40 Glucose (Fingerstick) 94 mg/dL (70-99) 94 mg/dL (70-99) 118 mg/dL (70-99) Sodium Level 143 mmol/L (136-145) Potassium Level 3.1 mmol/L (3.5-5.1) Chloride Level 103 mmol/L (98-107) Carbon Dioxide Level 32 mmol/L (21-32) Anion Gap 8 (6-14) Blood Urea Nitrogen 9 mg/dL (7-20) Creatinine 0.5 mg/dL (0.6-1.0) Estimated GFR (Cockcroft-Gault) 124.2 Glucose Level 93 mg/dL (70-99) Calcium Level 9.0 mg/dL (8.5-10.1) Test 07/21/19 07:37 Glucose (Fingerstick) 95 mg/dL (70-99) Objective: Assessment: 1. Sepsis from Gram negative bacteremia 2. Gram-negative bacteremia, source likely genitourinary. ID and RITA still pending CT a and p noted 3. Gram-negative brandon positive in urine culture.30 K colonies 4. Acute respiratory failure, on BiPAP. 5. Congestive heart failure. 6. Bronchitis. 7. Fever. 8. longterm resident. 9. Diabetes mellitus. 10. Bipolar disorder and anxiety. Plan: Plan of Care Continue Zosyn. f/u labs in am Follow up ID and RITA of Gram-negative brandon in blood cultures. F/U Repeat BC neg Continue supportive care. D/W RN MITZI HAWLEY MD Jul 21, 2019 10:44
[2019-07-21 11:01] VITALS: BP 128/54
--- NOTE | 2019-07-21 11:01 | PDOC ---
PROGRESS NOTES Chief Complaint Chief Complaint impression sepsis Acute hypoxic respiratory failure Dysuria - UTI Alkalosis - possibly from diuresis Bipolar Disorder - with anxiety and depression. COPD w. acute exacerbation Constipation - Diabetes-Type II - sliding scale in house GERD - cont meds High Cholesterol - cont statin Hypertension - cont meds Hypothyroid - will check TSH, cont meds AJ on CPAP - 9cm H2O QHS at [facility]. Continue off bipap on nasal o2 fever pattern improved ID recommendation reg gram neg bacteremia, iv zosyn 28 min pt exam, chart review, > 50% of time spent with exam, chart review, pt care coordination History of Present Illness History of Present Illness off bipap, doing much better talkative and alert today PULM and ID consult following will monitor Vitals Vitals Vital Signs Date Time Temp Pulse Resp B/P (MAP) Pulse Ox O2 Delivery O2 Flow Rate FiO2 07/21/19 09:14 65 125/56 07/21/19 08:00 Nasal Cannula 4.0 07/21/19 07:00 98.1 20 92 98.1 Physical Exam Physical Exam GENERAL: Alert, cooperative ,comfortable HEENT: Normocephalic, atraumatic, anicteric. NECK: Supple. LUNGS: Decreased breath sounds. HEART: S1, S2. No gallops or murmurs. ABDOMEN: Soft, nontender and obese. Bowel sounds present. EXTREMITIES: No edema, no cyanosis. NEUROLOGIC: Alert and awake, on BiPAP. Moves all 4 extremities. Grossly nonfocal. GENITOURINARY: External urinary catheter in place. General: Alert, Cooperative, mild distress Lungs: Clear Abdomen: Normal bowel sounds, Soft, No tenderness, No hepatosplenomegaly, No masses Extremities: No clubbing, No cyanosis, Normal pulses, Other (1+ pedal edema, venous stasis dermatitis. Gluteal skin breakdown) Skin: No rashes, Other Labs LABS Laboratory Tests Test 07/20/19 12:01 07/20/19 16:22 07/20/19 21:57 07/21/19 03:40 Glucose (Fingerstick) 94 mg/dL (70-99) 94 mg/dL (70-99) 118 mg/dL (70-99) Sodium Level 143 mmol/L (136-145) Potassium Level 3.1 mmol/L (3.5-5.1) Chloride Level 103 mmol/L (98-107) Carbon Dioxide Level 32 mmol/L (21-32) Anion Gap 8 (6-14) Blood Urea Nitrogen 9 mg/dL (7-20) Creatinine 0.5 mg/dL (0.6-1.0) Estimated GFR (Cockcroft-Gault) 124.2 Glucose Level 93 mg/dL (70-99) Calcium Level 9.0 mg/dL (8.5-10.1) Test 07/21/19 07:37 Glucose (Fingerstick) 95 mg/dL (70-99) Assessment and Plan Assessmemt and Plan Problems Medical Problems: (1) Alkalosis Status: Acute (2) Bipolar disorder Status: Chronic (3) COPD (chronic obstructive pulmonary disease) Status: Chronic (4) DM2 (diabetes mellitus, type 2) Status: Chronic (5) Dyspnea Status: Acute (6) Dysuria Status: Acute (7) GERD (gastroesophageal reflux disease) Status: Chronic (8) High cholesterol Status: Chronic (9) Hypothyroid Status: Chronic (10) Hypoxia Status: Acute Comment Review of Relevant I have reviewed the following items katie (where applicable) has been applied. Labs Laboratory Tests Test 07/19/19 11:37 07/19/19 13:15 07/19/19 15:04 07/19/19 20:59 Glucose (Fingerstick) 78 mg/dL (70-99) 91 mg/dL (70-99) 120 mg/dL (70-99) O2 Saturation 86 % (92-99) Arterial Blood pH 7.34 (7.35-7.45) Arterial Blood pCO2 at Patient Temp 70 mmHg (35-46) Arterial Blood pO2 at Patient Temp 52 mmHg (65-108) Arterial Blood HCO3 37 mmol/L (21-28) Arterial Blood Base Excess 9 mmol/L (-3-3) FiO2 25 Test 07/20/19 07:52 07/20/19 08:45 07/20/19 12:01 07/20/19 16:22 Glucose (Fingerstick) 90 mg/dL (70-99) 94 mg/dL (70-99) 94 mg/dL (70-99) Sodium Level 141 mmol/L (136-145) Potassium Level 3.2 mmol/L (3.5-5.1) Chloride Level 100 mmol/L (98-107) Carbon Dioxide Level 33 mmol/L (21-32) Anion Gap 8 (6-14) Blood Urea Nitrogen 12 mg/dL (7-20) Creatinine 0.5 mg/dL (0.6-1.0) Estimated GFR (Cockcroft-Gault) 124.2 Glucose Level 89 mg/dL (70-99) Calcium Level 9.1 mg/dL (8.5-10.1) Test 07/20/19 21:57 07/21/19 03:40 07/21/19 07:37 Glucose (Fingerstick) 118 mg/dL (70-99) 95 mg/dL (70-99) Sodium Level 143 mmol/L (136-145) Potassium Level 3.1 mmol/L (3.5-5.1) Chloride Level 103 mmol/L (98-107) Carbon Dioxide Level 32 mmol/L (21-32) Anion Gap 8 (6-14) Blood Urea Nitrogen 9 mg/dL (7-20) Creatinine 0.5 mg/dL (0.6-1.0) Estimated GFR (Cockcroft-Gault) 124.2 Glucose Level 93 mg/dL (70-99) Calcium Level 9.0 mg/dL (8.5-10.1) Laboratory Tests Test 07/20/19 12:01 07/20/19 16:22 07/20/19 21:57 07/21/19 03:40 Glucose (Fingerstick) 94 mg/dL (70-99) 94 mg/dL (70-99) 118 mg/dL (70-99) Sodium Level 143 mmol/L (136-145) Potassium Level 3.1 mmol/L (3.5-5.1) Chloride Level 103 mmol/L (98-107) Carbon Dioxide Level 32 mmol/L (21-32) Anion Gap 8 (6-14) Blood Urea Nitrogen 9 mg/dL (7-20) Creatinine 0.5 mg/dL (0.6-1.0) Estimated GFR (Cockcroft-Gault) 124.2 Glucose Level 93 mg/dL (70-99) Calcium Level 9.0 mg/dL (8.5-10.1) Test 07/21/19 07:37 Glucose (Fingerstick) 95 mg/dL (70-99) Microbiology 07/19/19 Blood Culture - Preliminary, Resulted NO GROWTH AFTER 2 DAYS 07/18/19 Urine Culture - Final, Complete 07/18/19 Urine Culture Result 1 (RITA) - Final, Complete Medications Current Medications Sodium Chloride 1,000 ml @ 100 mls/hr Q10H IV Last administered on 07/18/19 13:14; Start 07/18/19 at 12:25; Stop 07/18/19 at 22:24; Status DC Piperacillin Sod/ Tazobactam Sod 3.375 gm/Sodium Chloride 50 ml @ 100 mls/hr 1X ONCE IV Last administered on 07/18/19at 13:14; Start 07/18/19 at 12:45; Stop 07/18/19 at 13:14; Status DC Vancomycin HCl 250 ml @ 250 mls/hr 1X ONCE IV Last administered on 07/18/19at 13:58; Start 07/18/19 at 12:45; Stop 07/18/19 at 13:44; Status DC Albuterol/ Ipratropium (Duoneb) 3 ml 1X ONCE NEB Last administered on 07/18/19at 17:56; Start 07/18/19 at 12:45; Stop 07/18/19 at 12:46; Status DC Furosemide (Lasix) 40 mg 1X ONCE IVP Last administered on 07/18/19at 15:48; Start 07/18/19 at 14:45; Stop 07/18/19 at 14:47; Status DC Magnesium Sulfate 100 ml @ 25 mls/hr 1X ONCE IV Last administered on 07/18/19 18:02; Start 07/18/19 at 16:30; Stop 07/18/19 at 20:29; Status DC Acetaminophen (Tylenol) 500 mg PRN DAILY PRN PO HEADACHE / TEMP Last administered on 07/19/19at 17:02; Start 07/18/19 at 09:00 Albuterol Sulfate (Ventolin Neb Soln) 2.5 mg PRN Q4HRS NEB ; Start 07/18/19 at 16:15 Amlodipine Besylate (Norvasc) 5 mg DAILY PO Last administered on 07/21/19at 09:14; Start 07/18/19 at 17:00 Budesonide (Pulmicort) 2 mg RTBID NEB Last administered on 07/18/19at 20:42; Start 07/18/19 at 20:00; Stop 07/18/19 at 20:59; Status DC Vitamin D (Vitamin D3) 5,000 unit WEEKLY PO Last administered on 07/18/19 18:02; Start 07/18/19 at 17:00 Divalproex Sodium (Depakote Er) 500 mg DAILY PO Last administered on 07/21/19 09:14; Start 07/19/19 at 09:00 Divalproex Sodium (Depakote Er) 1,000 mg QHS PO Last administered on 07/20/19 21:13; Start 07/18/19 at 21:00 Docusate Sodium (Colace) 100 mg BID PO Last administered on 07/21/19 09:14; Start 07/18/19 at 21:00 Levothyroxine Sodium (Synthroid) 175 mcg DAILY PO Last administered on 09:14; Start 07/18/19 at 17:00 Pilocarpine HCl (Salagen) 10 mg TID PO Last administered on 07/21/19 09:14; Start 07/18/19 at 21:00 Polyethylene Glycol (miraLAX PACKET) 17 gm PRN DAILY PRN PO CONSTIPATION; Start 07/18/19 at 16:15 Pregabalin (Lyrica) 75 mg TID PO Last administered on 07/21/19 09:14; Start 07/18/19 at 21:00 Risperidone (RisperDAL) 1 mg QHS PO Last administered on 07/20/19 21:13; Start 07/18/19 at 21:00 Tramadol HCl (Ultram) 75 mg PRN TID PRN PO PAIN MILD TO MOD Last administered on 07/19/19 14:13; Start 07/18/19 at 16:15 Trazodone HCl (Desyrel) 50 mg QHS PO Last administered on 07/20/19 21:13; Start 07/18/19 at 21:00 Enoxaparin Sodium (Lovenox 60mg Syringe) 60 mg Q12HR SQ Last administered on 07/21/19 09:14; Start 07/18/19 at 21:00 Insulin Human Lispro (HumaLOG) 0-7 UNITS TIDWMEALS SQ ; Start 07/18/19 at 17:00 Dextrose (Dextrose 50%-Water Syringe) 12.5 gm PRN Q15MIN PRN IV SEE COMMENTS; Start 07/18/19 at 16:45 Dextrose 250 ml PRN Q15MIN PRN IV SEE COMMENTS; Start 07/18/19 at 16:45 Vancomycin HCl (Vanco Per Pharmacy) 1 each PRN DAILY PRN MC SEE COMMENTS Last administered on 07/18/19at 20:28; Start 07/18/19 at 20:30; Stop 07/19/19 at 10:54; Status DC Vancomycin HCl 2 gm/Sodium Chloride 500 ml @ 250 mls/hr Q12H IV Last administered on 07/19/19at 08:47; Start 07/19/19 at 09:00; Stop 07/19/19 at 10:54; Status DC Piperacillin Sod/ Tazobactam Sod 3.375 gm/Sodium Chloride 50 ml @ 100 mls/hr Q6HRS IV Last administered on 07/19/19at 06:19; Start 07/18/19 at 21:00; Stop 07/19/19 at 10:55; Status DC Vancomycin HCl 1 gm/Sodium Chloride 250 ml @ 250 mls/hr 1X ONCE IV Last administered on 07/18/19at 23:09; Start 07/18/19 at 20:30; Stop 07/19/19 at 10:54; Status DC Ketorolac Tromethamine (Toradol 15mg Vial) 15 mg 1X ONCE IV Last administered on 07/18/19at 22:28; Start 07/18/19 at 21:00; Stop 07/18/19 at 21:01; Status DC Vancomycin HCl (Vancomycin Trough Level) 1 each 1X ONCE MC ; Start 07/20/19 at 08:30; Stop 07/20/19 at 08:31; Status Cancel Albumin Human 100 ml @ 100 mls/hr 1X ONCE IV Last administered on 07/19/19at 00:25; Start 07/19/19 at 00:15; Stop 07/19/19 at 01:14; Status DC Albumin Human 500 ml @ 125 mls/hr 1X ONCE IV Last administered on 07/19/19at 03:37; Start 07/19/19 at 03:00; Stop 07/19/19 at 06:59; Status DC Acetazolamide Sodium (Diamox Inj) 500 mg 1X ONCE IVP Last administered on 07/19/19at 03:37; Start 07/19/19 at 03:15; Stop 07/19/19 at 03:16; Status DC Acetazolamide Sodium (Diamox Inj) 500 mg DAILY ONCE IVP ; Start 07/19/19 at 09:00; Stop 07/19/19 at 05:02; Status DC Acetazolamide Sodium (Diamox Inj) 500 mg DAILY IVP Last administered on 07/21/19at 09:14; Start 07/20/19 at 09:00 Piperacillin Sod/ Tazobactam Sod 4.5 gm/Sodium Chloride 100 ml @ 200 mls/hr Q6HRS IV Last administered on 07/21/19at 05:45; Start 07/19/19 at 12:00 Lactobacillus Rhamnosus (Culturelle) 1 cap BID PO Last administered on 07/21/19at 09:14; Start 07/19/19 at 21:00 Active Scripts Active Reported Xiidra (Lifitegrast) 1 Each Droperette 1 Each OP BID Vitamin D (Cholecalciferol (Vitamin D3)) 5,000 Unit Capsule 5,000 Unit PO WEEKLY Tylenol Extra Strength (Acetaminophen) 500 Mg Tablet 2 Mg PO DAILY Trazodone Hcl 50 Mg Tablet 1 Tab PO QHS Tramadol Hcl 50 Mg Tablet 75 Mg PO TID PRN Xarelto (Rivaroxaban) 20 Mg Tablet 20 Mg PO DAILY Risperdal (Risperidone) 1 Mg Tablet 1 Mg PO QHS Proventil Hfa Inhaler (Albuterol Sulfate) 6.7 Gm Hfa.aer.ad 1 Puff IH PRN Q4HRS PRN Protonix (Pantoprazole Sodium) 20 Mg Tablet.dr 40 Mg PO DAILY Potassium Chloride 20 Meq Tablet.er 20 Meq PO DAILY Miralax (Polyethylene Glycol 3350) 17 Gm Powd.pack 1 Packet PO DAILY PRN Pilocarpine Hcl 5 Mg Tablet 10 Mg PO TID Meclizine Hcl 25 Mg Tablet 1 Tab PO TID Lyrica (Pregabalin) 75 Mg Capsule 1 Cap PO TID Loratadine 10 Mg Tablet 1 Tab PO DAILY Levothyroxine Sodium 175 Mcg Tablet 1 Tab PO DAILY Lasix (Furosemide) 20 Mg Tablet 1 Tab PO DAILY Hydroxyzine Hcl 25 Mg Tablet 1 Tab PO BID Divalproex Sodium Er (Divalproex Sodium) 500 Mg Tab.er.24h 2 Tab PO QHS Divalproex Sodium Er (Divalproex Sodium) 500 Mg Tab.er.24h 1 Tab PO DAILY Colace (Docusate Sodium) 100 Mg Capsule 1 Cap PO BID Celexa (Citalopram Hydrobromide) 40 Mg Tablet 1 Tab PO DAILY Celebrex (Celecoxib) 200 Mg Capsule 1 Cap PO DAILY Budesonide 0.5 Mg/2 Ml Ampul.neb 1 Vial NEB BID Biofreeze (Menthol) 118 Ml Gel..ml. 118 Ml TP TID Baclofen 10 Mg Tablet 1 Tab PO TID Artificial Tears Eye Drops (Dextran 70/Hypromellose) 15 Ml Drops 1 Drop EACHEYE PRN PRN Amlodipine Besylate 5 Mg Tablet 5 Mg PO DAILY Albuterol Sulfate Neb Soln (Albuterol Sulfate) 2.5 Mg/3 Ml Vial.neb 1 Vial NEB PRN Q4HRS Vitals/I & O Vital Sign - Last 24 Hours 07/20/19 07/20/19 07/20/19 07/20/19 11:44 15:48 19:26 20:15 Temp 98.9 99.4 98.9 98.9 99.4 98.9 Pulse 77 79 75 Resp 22 20 20 B/P (MAP) 129/88 (102) 131/57 (81) 131/71 (91) Pulse Ox 92 94 91 O2 Delivery Nasal Cannula Nasal Cannula Nasal Cannula Nasal Cannula O2 Flow Rate 4.0 4.0 4.0 4.0 07/20/19 07/20/19 07/21/19 07/21/19 23:24 23:28 01:35 03:32 Temp 100.0 99.1 100.0 99.1 Pulse 81 73 Resp 18 20 B/P (MAP) 124/51 (75) 138/65 (89) Pulse Ox 93 95 93 92 O2 Delivery BiPAP/CPAP BiPAP/CPAP BiPAP/CPAP BiPAP/CPAP 07/21/19 07/21/19 07/21/19 07/21/19 03:52 07:00 08:00 09:14 Temp 98.1 98.1 Pulse 65 65 Resp 20 B/P (MAP) 125/56 (79) 125/56 Pulse Ox 93 92 O2 Delivery BiPAP/CPAP BiPAP/CPAP Nasal Cannula O2 Flow Rate 4.0 Intake and Output 07/20/19 07/20/19 07/21/19 15:00 23:00 07:00 Intake Total 25 ml 100 ml Output Total 750 ml Balance 25 ml -750 ml 100 ml SHANTA ALBRECHT MD Jul 21, 2019 11:01
[2019-07-21 15:00] VITALS: BP 109/61
[2019-07-21] MEDS ORDERED: POTASSIUM CHLORIDE 20 MEQ TABLET.ER. PO ONE (16:00)
[2019-07-21 19:59] VITALS: BP 134/73
[2019-07-21] MEDS: traZODone 50 MG TABLET. PO SCH (21:37)
[2019-07-21] MEDS: risperiDONE 1 MG TABLET. PO SCH (21:37)
[2019-07-21 23:20] VITALS: BP 119/68
[2019-07-22] MEDS: PIPERACILLIN/TAZOBACTAM 4.5 GM in IV NORMAL SALINE 100ML 100 ML IV SCH ×3 (01:58→12:16)
[2019-07-22 03:24] VITALS: BP 134/59
[2019-07-22 03:51] LABS: BASO % 0 % (0-3); EOS # 0.1 x10^3/uL (0.0-0.7); EOS % 2 % (0-3); HEMATOCRIT 33.6 % (36.0-47.0); HEMOGLOBIN 10.9 g/dL (12.0-15.5); LYMPH # 0.7 x10^3/uL (1.0-4.8); LYMPH % 16 % (24-48); MEAN CORPUSCULAR HEMOGLOBIN 28 pg (25-35); MEAN CORPUSCULAR HGB CONC 33 g/dL (31-37); MEAN CORPUSCULAR VOLUME 85 fL (79-100); MONO # 0.9 x10^3/uL (0.0-1.1); MONO % 20 % (0-9); NEUT # 2.6 x10^3/uL (1.8-7.7); NEUT % 61 % (31-73); PLATELET COUNT 153 x10^3/uL (140-400); RED BLOOD COUNT 3.97 x10^6/uL (3.50-5.40); RED CELL DISTRIBUTION WIDTH 14.5 % (11.5-14.5); WHITE BLOOD COUNT 4.3 x10^3/uL (4.0-11.0)
[2019-07-22 04:04] LABS: CREATININE 0.6 mg/dL (0.6-1.0); GFR 100.6; POTASSIUM 3.5 mmol/L (3.5-5.1)
[2019-07-22 04:48] LABS: % BANDS 18 % (0-9); % BASOS 1 % (0-3); % EOS 4 % (0-5); % LYMPHS 10 % (24-48); % METAS 1 % (0-0); % MONOS 18 % (0-10); % SEGS 48 % (35-66)
[2019-07-22 04:49] LABS: PLT ESTIMATE ADEQUATE (ADEQUATE)
[2019-07-22 07:00] VITALS: BP 139/61
[2019-07-22] MEDS: INSULIN LISPRO 300 UNITS/3 ML VIAL. SQ SCH ×2 (08:00→12:00)
[2019-07-22] MEDS ORDERED: POTASSIUM CHLORIDE 20 MEQ TABLET.ER. PO SCH (08:00)
--- NOTE | 2019-07-22 08:31 | NUR ---
SW following pt for dc planning. Chart reviewed and pt is LTC resident at [facility], phone: [phone], fax: [phone]. SW initiated LTAC eval at [facility]. Pt acceptance/admission pending.
--- NOTE | 2019-07-22 09:09 | PDOC ---
Infectious Disease Note Subjective: Subjective Pt is sleepy says feels ok off bipap on nasal o2 4l/nc fever pattern improved ROS: ROS Negative otherwise. Vital Signs: Vital Signs Vital Signs Date Time Temp Pulse Resp B/P (MAP) Pulse Ox O2 Delivery O2 Flow Rate FiO2 07/22/19 07:46 93 BiPAP/CPAP 07/22/19 07:00 98.1 54 16 139/61 (87) 98.1 07/21/19 20:10 4.0 Physical Exam: PHYSICAL EXAM GENERAL: Alert, cooperative ,comfortable HEENT: Normocephalic, atraumatic, anicteric.thrush + NECK: Supple. LUNGS: Decreased breath sounds. HEART: S1, S2. No gallops or murmurs. ABDOMEN: Soft, nontender and obese. Bowel sounds present. EXTREMITIES: No edema, no cyanosis. NEUROLOGIC: Alert and awake, on BiPAP. Moves all 4 extremities. Grossly nonfocal. GENITOURINARY: External urinary catheter in place. Medications: Inpatient Meds: Current Medications Medications (Trade) Dose Ordered Sig/Holden Start Time Stop Time Status Last Admin Dose Admin Acetaminophen (Tylenol) 500 mg PRN DAILY PRN 07/18/19 09:00 07/19/19 17:02 500 MG Acetazolamide Sodium (Diamox Inj) 500 mg DAILY 07/20/19 09:00 07/21/19 09:14 500 MG Albumin Human 500 ml @ 125 mls/hr 1X ONCE 07/19/19 03:00 07/19/19 06:59 DC 07/19/19 03:37 125 MLS/HR Albuterol Sulfate (Ventolin Neb Soln) 2.5 mg PRN Q4HRS 07/18/19 16:15 Albuterol/ Ipratropium (Duoneb) 3 ml 1X ONCE 07/18/19 12:45 07/18/19 12:46 DC 07/18/19 17:56 3 ML Amlodipine Besylate (Norvasc) 5 mg DAILY 07/18/19 17:00 07/21/19 09:14 5 MG Budesonide (Pulmicort) 2 mg RTBID 07/18/19 20:00 07/18/19 20:59 DC 07/18/19 20:42 0.5 MG Dextrose 250 ml PRN Q15MIN PRN 07/18/19 16:45 Dextrose (Dextrose 50%-Water Syringe) 12.5 gm PRN Q15MIN PRN 07/18/19 16:45 Divalproex Sodium (Depakote Er) 1,000 mg QHS 07/18/19 21:00 07/21/19 21:38 1,000 MG Docusate Sodium (Colace) 100 mg BID 07/18/19 21:00 07/21/19 09:14 100 MG Enoxaparin Sodium (Lovenox 60mg Syringe) 60 mg Q12HR 07/18/19 21:00 07/21/19 21:38 60 MG Furosemide (Lasix) 40 mg 1X ONCE 07/18/19 14:45 07/18/19 14:47 DC 07/18/19 15:48 40 MG Insulin Human Lispro (HumaLOG) 0-7 UNITS TIDWMEALS 07/18/19 17:00 Ketorolac Tromethamine (Toradol 15mg Vial) 15 mg 1X ONCE 07/18/19 21:00 07/18/19 21:01 DC 07/18/19 22:28 15 MG Lactobacillus Rhamnosus (Culturelle) 1 cap BID 07/19/19 21:00 07/21/19 21:38 1 CAP Levothyroxine Sodium (Synthroid) 175 mcg DAILY 07/18/19 17:00 07/21/19 09:14 175 MCG Magnesium Sulfate 100 ml @ 25 mls/hr 1X ONCE 07/18/19 16:30 07/18/19 20:29 DC 07/18/19 18:02 25 MLS/HR Pilocarpine HCl (Salagen) 10 mg TID 07/18/19 21:00 07/21/19 21:38 10 MG Piperacillin Sod/ Tazobactam Sod 3.375 gm/Sodium Chloride 50 ml @ 100 mls/hr Q6HRS 07/18/19 21:00 07/19/19 10:55 DC 07/19/19 06:19 100 MLS/HR Piperacillin Sod/ Tazobactam Sod 4.5 gm/Sodium Chloride 100 ml @ 200 mls/hr Q6HRS 07/19/19 12:00 07/22/19 05:45 200 MLS/HR Polyethylene Glycol (miraLAX PACKET) 17 gm PRN DAILY PRN 07/18/19 16:15 Potassium Chloride (Klor-Con) 20 meq DAILYWBKFT 07/22/19 08:00 Pregabalin (Lyrica) 75 mg TID 07/18/19 21:00 07/21/19 21:38 75 MG Risperidone (RisperDAL) 1 mg QHS 07/18/19 21:00 07/21/19 21:38 1 MG Sodium Chloride 1,000 ml @ 100 mls/hr Q10H 07/18/19 12:25 07/18/19 22:24 DC 07/18/19 13:14 100 MLS/HR Tramadol HCl (Ultram) 75 mg PRN TID PRN 07/18/19 16:15 07/19/19 14:13 75 MG Trazodone HCl (Desyrel) 50 mg QHS 07/18/19 21:00 07/21/19 21:38 50 MG Vancomycin HCl (Vanco Per Pharmacy) 1 each PRN DAILY PRN 07/18/19 20:30 07/19/19 10:54 DC 07/18/19 20:28 1 EACH Vancomycin HCl (Vancomycin Trough Level) 1 each 1X ONCE 07/20/19 08:30 07/20/19 08:31 Cancel Vancomycin HCl 1 gm/Sodium Chloride 250 ml @ 250 mls/hr 1X ONCE 07/18/19 20:30 07/19/19 10:54 DC 07/18/19 23:09 250 MLS/HR Vancomycin HCl 2 gm/Sodium Chloride 500 ml @ 250 mls/hr Q12H 07/19/19 09:00 07/19/19 10:54 DC 07/19/19 08:47 250 MLS/HR Vitamin D (Vitamin D3) 5,000 unit WEEKLY 07/18/19 17:00 07/18/19 18:02 5,000 UNIT Labs: Lab Laboratory Tests Test 07/21/19 11:35 07/21/19 16:59 07/21/19 20:38 07/22/19 03:20 Glucose (Fingerstick) 105 mg/dL (70-99) 83 mg/dL (70-99) 104 mg/dL (70-99) White Blood Count 4.3 x10^3/uL (4.0-11.0) Red Blood Count 3.97 x10^6/uL (3.50-5.40) Hemoglobin 10.9 g/dL (12.0-15.5) Hematocrit 33.6 % (36.0-47.0) Mean Corpuscular Volume 85 fL (79-100) Mean Corpuscular Hemoglobin 28 pg (25-35) Mean Corpuscular Hemoglobin Concent 33 g/dL (31-37) Red Cell Distribution Width 14.5 % (11.5-14.5) Platelet Count 153 x10^3/uL (140-400) Neutrophils (%) (Auto) 61 % (31-73) Lymphocytes (%) (Auto) 16 % (24-48) Monocytes (%) (Auto) 20 % (0-9) Eosinophils (%) (Auto) 2 % (0-3) Basophils (%) (Auto) 0 % (0-3) Neutrophils # (Auto) 2.6 x10^3/uL (1.8-7.7) Lymphocytes # (Auto) 0.7 x10^3/uL (1.0-4.8) Monocytes # (Auto) 0.9 x10^3/uL (0.0-1.1) Eosinophils # (Auto) 0.1 x10^3/uL (0.0-0.7) Basophils # (Auto) 0.0 x10^3/uL (0.0-0.2) Segmented Neutrophils % 48 % (35-66) Band Neutrophils % 18 % (0-9) Lymphocytes % 10 % (24-48) Monocytes % 18 % (0-10) Eosinophils % 4 % (0-5) Basophils % 1 % (0-3) Metamyelocytes % 1 % (0-0) Platelet Estimate Adequate (ADEQUATE) Sodium Level 142 mmol/L (136-145) Potassium Level 3.5 mmol/L (3.5-5.1) Chloride Level 104 mmol/L (98-107) Carbon Dioxide Level 31 mmol/L (21-32) Anion Gap 7 (6-14) Blood Urea Nitrogen 11 mg/dL (7-20) Creatinine 0.6 mg/dL (0.6-1.0) Estimated GFR (Cockcroft-Gault) 100.6 Glucose Level 92 mg/dL (70-99) Calcium Level 9.0 mg/dL (8.5-10.1) Test 9/12/19 07:38 Glucose (Fingerstick) 87 mg/dL (70-99) Objective: Assessment: 1. Sepsis from Gram negative bacteremia 2. Gram-negative bacteremia, source likely genitourinary. ID and RITA still pending CT a and p noted 3. Gram-negative brandon positive in urine culture.30 K colonies 4. Acute respiratory failure, on BiPAP. 5. Congestive heart failure. 6. Bronchitis. 7. Fever. 8. detention resident. 9. Diabetes mellitus. 10. Bipolar disorder and anxiety. 11. Thrush Plan: Plan of Care Continue Zosyn. add micafungin f/u labs in am Follow up ID and RITA of Gram-negative brandon in blood cultures. F/U Repeat BC neg Continue supportive care. D/W MITZI GUILLAUME MD Jul 22, 2019 09:09
[2019-07-22] MEDS: PILOCARPINE 5 MG TABLET. PO SCH ×2 (09:15→15:02)
[2019-07-22] MEDS: DIVALPROEX EXTENDED RELEASE 500 MG TAB.ER.24H. PO SCH (09:15)
[2019-07-22] MEDS: LEVOTHYROXINE 175 MCG TABLET PO SCH (09:15)
[2019-07-22] MEDS: PREGABALIN 75 MG CAPSULE PO SCH ×2 (09:15→15:02)
[2019-07-22] MEDS: LACTOBACILLUS RHAMNOSUS GG 1 CAPSULE. PO SCH (09:16)
[2019-07-22] MEDS: DOCUSATE SODIUM 100 MG CAPSULE. PO SCH (09:16)
[2019-07-22] MEDS: amLODIPine BESYLATE 5 MG TABLET PO SCH (09:16)
[2019-07-22] MEDS: acetaZOLAMIDE SODIUM 500 MG VIAL. IVP SCH (09:17)
[2019-07-22] MEDS ORDERED: MICAFUNGIN 100 MG in IV DEXTROSE 5% 100ML 100 ML IV SCH (10:30)
[2019-07-22 11:00] VITALS: BP 132/58
--- NOTE | 2019-07-22 11:15 | PDOC ---
PROGRESS NOTES Chief Complaint Chief Complaint discharge dx sepsis Acute hypoxic respiratory failure Dysuria - UTI Alkalosis - possibly from diuresis Bipolar Disorder - with anxiety and depression. COPD w. acute exacerbation Constipation - Diabetes-Type II - sliding scale in house GERD - cont meds High Cholesterol - cont statin Hypertension - cont meds Hypothyroid - will check TSH, cont meds AJ on CPAP - 9cm H2O QHS at [facility]. Continue off bipap on nasal o2 fever pattern improved ID recommendation reg gram neg bacteremia, iv zosyn ok with LT[facility] eval 07/22 34 min pt exam, chart review, > 50% of time spent with exam, chart review, pt care coordination History of Present Illness History of Present Illness off bipap, doing much better talkative and alert today PULM and ID consult following will monitor Vitals Vitals Vital Signs Date Time Temp Pulse Resp B/P (MAP) Pulse Ox O2 Delivery O2 Flow Rate FiO2 07/22/19 09:17 54 139/61 07/22/19 08:00 Nasal Cannula 4.0 07/22/19 07:46 93 07/22/19 07:00 98.1 16 98.1 Physical Exam Physical Exam GENERAL: Alert, cooperative ,comfortable HEENT: Normocephalic, atraumatic, anicteric.thrush + NECK: Supple. LUNGS: Decreased breath sounds. HEART: S1, S2. No gallops or murmurs. ABDOMEN: Soft, nontender and obese. Bowel sounds present. EXTREMITIES: No edema, no cyanosis. NEUROLOGIC: Alert and awake, on BiPAP. Moves all 4 extremities. Grossly nonfocal. GENITOURINARY: External urinary catheter in place. General: Alert, Oriented X3, Cooperative, mild distress Heart: Regular rate Lungs: Clear Abdomen: Normal bowel sounds, Soft, No tenderness, No hepatosplenomegaly, No masses Extremities: No clubbing, No cyanosis, Normal pulses, Other (1+ pedal edema, venous stasis dermatitis. Gluteal skin breakdown) Skin: No rashes, Other Labs LABS Laboratory Tests Test 07/21/19 11:35 07/21/19 16:59 07/21/19 20:38 07/22/19 03:20 Glucose (Fingerstick) 105 mg/dL (70-99) 83 mg/dL (70-99) 104 mg/dL (70-99) White Blood Count 4.3 x10^3/uL (4.0-11.0) Red Blood Count 3.97 x10^6/uL (3.50-5.40) Hemoglobin 10.9 g/dL (12.0-15.5) Hematocrit 33.6 % (36.0-47.0) Mean Corpuscular Volume 85 fL (79-100) Mean Corpuscular Hemoglobin 28 pg (25-35) Mean Corpuscular Hemoglobin Concent 33 g/dL (31-37) Red Cell Distribution Width 14.5 % (11.5-14.5) Platelet Count 153 x10^3/uL (140-400) Neutrophils (%) (Auto) 61 % (31-73) Lymphocytes (%) (Auto) 16 % (24-48) Monocytes (%) (Auto) 20 % (0-9) Eosinophils (%) (Auto) 2 % (0-3) Basophils (%) (Auto) 0 % (0-3) Neutrophils # (Auto) 2.6 x10^3/uL (1.8-7.7) Lymphocytes # (Auto) 0.7 x10^3/uL (1.0-4.8) Monocytes # (Auto) 0.9 x10^3/uL (0.0-1.1) Eosinophils # (Auto) 0.1 x10^3/uL (0.0-0.7) Basophils # (Auto) 0.0 x10^3/uL (0.0-0.2) Segmented Neutrophils % 48 % (35-66) Band Neutrophils % 18 % (0-9) Lymphocytes % 10 % (24-48) Monocytes % 18 % (0-10) Eosinophils % 4 % (0-5) Basophils % 1 % (0-3) Metamyelocytes % 1 % (0-0) Platelet Estimate Adequate (ADEQUATE) Sodium Level 142 mmol/L (136-145) Potassium Level 3.5 mmol/L (3.5-5.1) Chloride Level 104 mmol/L (98-107) Carbon Dioxide Level 31 mmol/L (21-32) Anion Gap 7 (6-14) Blood Urea Nitrogen 11 mg/dL (7-20) Creatinine 0.6 mg/dL (0.6-1.0) Estimated GFR (Cockcroft-Gault) 100.6 Glucose Level 92 mg/dL (70-99) Calcium Level 9.0 mg/dL (8.5-10.1) Test 07/22/19 07:38 Glucose (Fingerstick) 87 mg/dL (70-99) Assessment and Plan Assessmemt and Plan Problems Medical Problems: (1) Alkalosis Status: Acute (2) Bipolar disorder Status: Chronic (3) COPD (chronic obstructive pulmonary disease) Status: Chronic (4) DM2 (diabetes mellitus, type 2) Status: Chronic (5) Dyspnea Status: Acute (6) Dysuria Status: Acute (7) GERD (gastroesophageal reflux disease) Status: Chronic (8) High cholesterol Status: Chronic (9) Hypothyroid Status: Chronic (10) Hypoxia Status: Acute Comment Review of Relevant I have reviewed the following items katie (where applicable) has been applied. Labs Laboratory Tests Test 07/20/19 12:01 07/20/19 16:22 07/20/19 21:57 07/21/19 03:40 Glucose (Fingerstick) 94 mg/dL (70-99) 94 mg/dL (70-99) 118 mg/dL (70-99) Sodium Level 143 mmol/L (136-145) Potassium Level 3.1 mmol/L (3.5-5.1) Chloride Level 103 mmol/L (98-107) Carbon Dioxide Level 32 mmol/L (21-32) Anion Gap 8 (6-14) Blood Urea Nitrogen 9 mg/dL (7-20) Creatinine 0.5 mg/dL (0.6-1.0) Estimated GFR (Cockcroft-Gault) 124.2 Glucose Level 93 mg/dL (70-99) Calcium Level 9.0 mg/dL (8.5-10.1) Test 07/21/19 07:37 07/21/19 11:35 07/21/19 16:59 07/21/19 20:38 Glucose (Fingerstick) 95 mg/dL (70-99) 105 mg/dL (70-99) 83 mg/dL (70-99) 104 mg/dL (70-99) Test 07/22/19 03:20 07/22/19 07:38 White Blood Count 4.3 x10^3/uL (4.0-11.0) Red Blood Count 3.97 x10^6/uL (3.50-5.40) Hemoglobin 10.9 g/dL (12.0-15.5) Hematocrit 33.6 % (36.0-47.0) Mean Corpuscular Volume 85 fL (79-100) Mean Corpuscular Hemoglobin 28 pg (25-35) Mean Corpuscular Hemoglobin Concent 33 g/dL (31-37) Red Cell Distribution Width 14.5 % (11.5-14.5) Platelet Count 153 x10^3/uL (140-400) Neutrophils (%) (Auto) 61 % (31-73) Lymphocytes (%) (Auto) 16 % (24-48) Monocytes (%) (Auto) 20 % (0-9) Eosinophils (%) (Auto) 2 % (0-3) Basophils (%) (Auto) 0 % (0-3) Neutrophils # (Auto) 2.6 x10^3/uL (1.8-7.7) Lymphocytes # (Auto) 0.7 x10^3/uL (1.0-4.8) Monocytes # (Auto) 0.9 x10^3/uL (0.0-1.1) Eosinophils # (Auto) 0.1 x10^3/uL (0.0-0.7) Basophils # (Auto) 0.0 x10^3/uL (0.0-0.2) Segmented Neutrophils % 48 % (35-66) Band Neutrophils % 18 % (0-9) Lymphocytes % 10 % (24-48) Monocytes % 18 % (0-10) Eosinophils % 4 % (0-5) Basophils % 1 % (0-3) Metamyelocytes % 1 % (0-0) Platelet Estimate Adequate (ADEQUATE) Sodium Level 142 mmol/L (136-145) Potassium Level 3.5 mmol/L (3.5-5.1) Chloride Level 104 mmol/L (98-107) Carbon Dioxide Level 31 mmol/L (21-32) Anion Gap 7 (6-14) Blood Urea Nitrogen 11 mg/dL (7-20) Creatinine 0.6 mg/dL (0.6-1.0) Estimated GFR (Cockcroft-Gault) 100.6 Glucose Level 92 mg/dL (70-99) Calcium Level 9.0 mg/dL (8.5-10.1) Glucose (Fingerstick) 87 mg/dL (70-99) Laboratory Tests Test 07/21/19 11:35 07/21/19 16:59 07/21/19 20:38 07/22/19 03:20 Glucose (Fingerstick) 105 mg/dL (70-99) 83 mg/dL (70-99) 104 mg/dL (70-99) White Blood Count 4.3 x10^3/uL (4.0-11.0) Red Blood Count 3.97 x10^6/uL (3.50-5.40) Hemoglobin 10.9 g/dL (12.0-15.5) Hematocrit 33.6 % (36.0-47.0) Mean Corpuscular Volume 85 fL (79-100) Mean Corpuscular Hemoglobin 28 pg (25-35) Mean Corpuscular Hemoglobin Concent 33 g/dL (31-37) Red Cell Distribution Width 14.5 % (11.5-14.5) Platelet Count 153 x10^3/uL (140-400) Neutrophils (%) (Auto) 61 % (31-73) Lymphocytes (%) (Auto) 16 % (24-48) Monocytes (%) (Auto) 20 % (0-9) Eosinophils (%) (Auto) 2 % (0-3) Basophils (%) (Auto) 0 % (0-3) Neutrophils # (Auto) 2.6 x10^3/uL (1.8-7.7) Lymphocytes # (Auto) 0.7 x10^3/uL (1.0-4.8) Monocytes # (Auto) 0.9 x10^3/uL (0.0-1.1) Eosinophils # (Auto) 0.1 x10^3/uL (0.0-0.7) Basophils # (Auto) 0.0 x10^3/uL (0.0-0.2) Segmented Neutrophils % 48 % (35-66) Band Neutrophils % 18 % (0-9) Lymphocytes % 10 % (24-48) Monocytes % 18 % (0-10) Eosinophils % 4 % (0-5) Basophils % 1 % (0-3) Metamyelocytes % 1 % (0-0) Platelet Estimate Adequate (ADEQUATE) Sodium Level 142 mmol/L (136-145) Potassium Level 3.5 mmol/L (3.5-5.1) Chloride Level 104 mmol/L (98-107) Carbon Dioxide Level 31 mmol/L (21-32) Anion Gap 7 (6-14) Blood Urea Nitrogen 11 mg/dL (7-20) Creatinine 0.6 mg/dL (0.6-1.0) Estimated GFR (Cockcroft-Gault) 100.6 Glucose Level 92 mg/dL (70-99) Calcium Level 9.0 mg/dL (8.5-10.1) Test 07/22/19 07:38 Glucose (Fingerstick) 87 mg/dL (70-99) Microbiology 07/19/19 Blood Culture - Preliminary, Resulted NO GROWTH AFTER 3 DAYS 07/18/19 Urine Culture - Final, Complete 07/18/19 Urine Culture Result 1 (RITA) - Final, Complete Medications Current Medications Sodium Chloride 1,000 ml @ 100 mls/hr Q10H IV Last administered on 07/18/19at 13:14; Start 07/18/19 at 12:25; Stop 07/18/19 at 22:24; Status DC Piperacillin Sod/ Tazobactam Sod 3.375 gm/Sodium Chloride 50 ml @ 100 mls/hr 1X ONCE IV Last administered on 07/18/19at 13:14; Start 07/18/19 at 12:45; Stop 07/18/19 at 13:14; Status DC Vancomycin HCl 250 ml @ 250 mls/hr 1X ONCE IV Last administered on 07/18/19at 13:58; Start 07/18/19 at 12:45; Stop 07/18/19 at 13:44; Status DC Albuterol/ Ipratropium (Duoneb) 3 ml 1X ONCE NEB Last administered on 07/18/19at 17:56; Start 07/18/19 at 12:45; Stop 07/18/19 at 12:46; Status DC Furosemide (Lasix) 40 mg 1X ONCE IVP Last administered on 07/18/19at 15:48; Start 07/18/19 at 14:45; Stop 07/18/19 at 14:47; Status DC Magnesium Sulfate 100 ml @ 25 mls/hr 1X ONCE IV Last administered on 07/18/19at 18:02; Start 07/18/19 at 16:30; Stop 07/18/19 at 20:29; Status DC Acetaminophen (Tylenol) 500 mg PRN DAILY PRN PO HEADACHE / TEMP Last administered on 07/19/19 17:02; Start 07/18/19 at 09:00 Albuterol Sulfate (Ventolin Neb Soln) 2.5 mg PRN Q4HRS NEB ; Start 07/18/19 at 16:15 Amlodipine Besylate (Norvasc) 5 mg DAILY PO Last administered on 07/22/19 09:17; Start 07/18/19 at 17:00 Budesonide (Pulmicort) 2 mg RTBID NEB Last administered on 07/18/19 20:42; Start 07/18/19 at 20:00; Stop 07/18/19 at 20:59; Status DC Vitamin D (Vitamin D3) 5,000 unit WEEKLY PO Last administered on 07/18/19 18:02; Start 07/18/19 at 17:00 Divalproex Sodium (Depakote Er) 500 mg DAILY PO Last administered on 07/22/19 09:17; Start 07/19/19 at 09:00 Divalproex Sodium (Depakote Er) 1,000 mg QHS PO Last administered on 07/21/19 21:38; Start 07/18/19 at 21:00 Docusate Sodium (Colace) 100 mg BID PO Last administered on 07/22/19 09:17; Start 07/18/19 at 21:00 Levothyroxine Sodium (Synthroid) 175 mcg DAILY PO Last administered on 07/22/19 09:17; Start 07/18/19 at 17:00 Pilocarpine HCl (Salagen) 10 mg TID PO Last administered on 07/22/19 09:17; Start 07/18/19 at 21:00 Polyethylene Glycol (miraLAX PACKET) 17 gm PRN DAILY PRN PO CONSTIPATION; Start 07/18/19 at 16:15 Pregabalin (Lyrica) 75 mg TID PO Last administered on 07/22/19 09:17; Start 07/18/19 at 21:00 Risperidone (RisperDAL) 1 mg QHS PO Last administered on 07/21/19 21:38; Start 07/18/19 at 21:00 Tramadol HCl (Ultram) 75 mg PRN TID PRN PO PAIN MILD TO MOD Last administered on 07/19/19at 14:13; Start 07/18/19 at 16:15 Trazodone HCl (Desyrel) 50 mg QHS PO Last administered on 07/21/19at 21:38; Start 07/18/19 at 21:00 Enoxaparin Sodium (Lovenox 60mg Syringe) 60 mg Q12HR SQ Last administered on 07/22/19at 09:17; Start 07/18/19 at 21:00 Insulin Human Lispro (HumaLOG) 0-7 UNITS TIDWMEALS SQ ; Start 07/18/19 at 17:00 Dextrose (Dextrose 50%-Water Syringe) 12.5 gm PRN Q15MIN PRN IV SEE COMMENTS; Start 07/18/19 at 16:45 Dextrose 250 ml PRN Q15MIN PRN IV SEE COMMENTS; Start 07/18/19 at 16:45 Vancomycin HCl (Vanco Per Pharmacy) 1 each PRN DAILY PRN MC SEE COMMENTS Last administered on 07/18/19at 20:28; Start 07/18/19 at 20:30; Stop 07/19/19 at 10:54; Status DC Vancomycin HCl 2 gm/Sodium Chloride 500 ml @ 250 mls/hr Q12H IV Last administered on 07/19/19at 08:47; Start 07/19/19 at 09:00; Stop 07/19/19 at 10:54; Status DC Piperacillin Sod/ Tazobactam Sod 3.375 gm/Sodium Chloride 50 ml @ 100 mls/hr Q6HRS IV Last administered on 07/19/19at 06:19; Start 07/18/19 at 21:00; Stop 07/19/19 at 10:55; Status DC Vancomycin HCl 1 gm/Sodium Chloride 250 ml @ 250 mls/hr 1X ONCE IV Last administered on 07/18/19at 23:09; Start 07/18/19 at 20:30; Stop 07/19/19 at 10:54; Status DC Ketorolac Tromethamine (Toradol 15mg Vial) 15 mg 1X ONCE IV Last administered on 07/18/19at 22:28; Start 07/18/19 at 21:00; Stop 07/18/19 at 21:01; Status DC Vancomycin HCl (Vancomycin Trough Level) 1 each 1X ONCE MC ; Start 07/20/19 at 08:30; Stop 07/20/19 at 08:31; Status Cancel Albumin Human 100 ml @ 100 mls/hr 1X ONCE IV Last administered on 07/19/19at 00:25; Start 07/19/19 at 00:15; Stop 07/19/19 at 01:14; Status DC Albumin Human 500 ml @ 125 mls/hr 1X ONCE IV Last administered on 07/19/19at 03:37; Start 07/19/19 at 03:00; Stop 07/19/19 at 06:59; Status DC Acetazolamide Sodium (Diamox Inj) 500 mg 1X ONCE IVP Last administered on 07/19/19at 03:37; Start 07/19/19 at 03:15; Stop 07/19/19 at 03:16; Status DC Acetazolamide Sodium (Diamox Inj) 500 mg DAILY ONCE IVP ; Start 07/19/19 at 09:00; Stop 07/19/19 at 05:02; Status DC Acetazolamide Sodium (Diamox Inj) 500 mg DAILY IVP Last administered on 07/22/19at 09:17; Start 07/20/19 at 09:00 Piperacillin Sod/ Tazobactam Sod 4.5 gm/Sodium Chloride 100 ml @ 200 mls/hr Q6HRS IV Last administered on 07/22/19at 05:45; Start 07/19/19 at 12:00 Lactobacillus Rhamnosus (Culturelle) 1 cap BID PO Last administered on 07/22/19at 09:17; Start 07/19/19 at 21:00 Potassium Chloride (Klor-Con) 40 meq 1X ONCE PO Last administered on 07/21/19at 16:07; Start 07/21/19 at 16:00; Stop 07/21/19 at 16:02; Status DC Potassium Chloride (Klor-Con) 20 meq DAILYWBKFT PO Last administered on 07/22/19at 09:17; Start 07/22/19 at 08:00 Micafungin Sodium 100 mg/Dextrose 100 ml @ 100 mls/hr Q24H IV Last administered on 07/22/19at 10:10; Start 07/22/19 at 10:30 Active Scripts Active Reported Xiidra (Lifitegrast) 1 Each Droperette 1 Each OP BID Vitamin D (Cholecalciferol (Vitamin D3)) 5,000 Unit Capsule 5,000 Unit PO WEEKLY Tylenol Extra Strength (Acetaminophen) 500 Mg Tablet 2 Mg PO DAILY Trazodone Hcl 50 Mg Tablet 1 Tab PO QHS Tramadol Hcl 50 Mg Tablet 75 Mg PO TID PRN Xarelto (Rivaroxaban) 20 Mg Tablet 20 Mg PO DAILY Risperdal (Risperidone) 1 Mg Tablet 1 Mg PO QHS Proventil Hfa Inhaler (Albuterol Sulfate) 6.7 Gm Hfa.aer.ad 1 Puff IH PRN Q4HRS PRN Protonix (Pantoprazole Sodium) 20 Mg Tablet.dr 40 Mg PO DAILY Potassium Chloride 20 Meq Tablet.er 20 Meq PO DAILY Miralax (Polyethylene Glycol 3350) 17 Gm Powd.pack 1 Packet PO DAILY PRN Pilocarpine Hcl 5 Mg Tablet 10 Mg PO TID Meclizine Hcl 25 Mg Tablet 1 Tab PO TID Lyrica (Pregabalin) 75 Mg Capsule 1 Cap PO TID Loratadine 10 Mg Tablet 1 Tab PO DAILY Levothyroxine Sodium 175 Mcg Tablet 1 Tab PO DAILY Lasix (Furosemide) 20 Mg Tablet 1 Tab PO DAILY Hydroxyzine Hcl 25 Mg Tablet 1 Tab PO BID Divalproex Sodium Er (Divalproex Sodium) 500 Mg Tab.er.24h 2 Tab PO QHS Divalproex Sodium Er (Divalproex Sodium) 500 Mg Tab.er.24h 1 Tab PO DAILY Colace (Docusate Sodium) 100 Mg Capsule 1 Cap PO BID Celexa (Citalopram Hydrobromide) 40 Mg Tablet 1 Tab PO DAILY Celebrex (Celecoxib) 200 Mg Capsule 1 Cap PO DAILY Budesonide 0.5 Mg/2 Ml Ampul.neb 1 Vial NEB BID Biofreeze (Menthol) 118 Ml Gel..ml. 118 Ml TP TID Baclofen 10 Mg Tablet 1 Tab PO TID Artificial Tears Eye Drops (Dextran 70/Hypromellose) 15 Ml Drops 1 Drop EACHEYE PRN PRN Amlodipine Besylate 5 Mg Tablet 5 Mg PO DAILY Albuterol Sulfate Neb Soln (Albuterol Sulfate) 2.5 Mg/3 Ml Vial.neb 1 Vial NEB PRN Q4HRS Vitals/I & O Vital Sign - Last 24 Hours 07/21/19 07/21/19 07/21/19 9/11/19 15:00 19:59 20:10 23:20 Temp 99.2 98.0 98.1 99.2 98.0 98.1 Pulse 65 70 63 Resp 20 20 22 B/P (MAP) 109/61 (77) 134/73 (93) 119/68 (85) Pulse Ox 96 95 95 O2 Delivery BiPAP/CPAP Nasal Cannula Nasal Cannula BiPAP/CPAP O2 Flow Rate 4.0 4.0 07/22/19 07/22/19 07/22/19 07/22/19 00:08 02:53 03:24 07:00 Temp 98.7 98.1 98.7 98.1 Pulse 59 54 Resp 22 16 B/P (MAP) 134/59 (84) 139/61 (87) Pulse Ox 94 94 99 O2 Delivery BiPAP/CPAP BiPAP/CPAP BiPAP/CPAP Room Air 07/22/19 07/22/19 07/22/19 07:46 08:00 09:17 Pulse 54 B/P (MAP) 139/61 Pulse Ox 93 O2 Delivery BiPAP/CPAP Nasal Cannula O2 Flow Rate 4.0 Intake and Output 07/21/19 07/21/19 07/22/19 14:59 22:59 06:59 Intake Total 100 ml 800 ml 100 ml Output Total 300 ml 700 ml Balance 100 ml 500 ml -600 ml SHANTA ALBRECHT MD Jul 22, 2019 11:15
--- NOTE | 2019-07-22 13:08 | PDOC ---
PULMONARY PROGRESS NOTES Subjective off bipap fully awake Vitals Vital Signs Date Time Temp Pulse Resp B/P (MAP) Pulse Ox O2 Delivery O2 Flow Rate FiO2 07/22/19 11:00 98.0 43 18 132/58 (82) 96 Room Air 98.0 07/22/19 08:00 4.0 General: Alert, No acute distress Lungs: Clear Cardiovascular: S1, S2 Abdomen: Soft, Other (obese) Extremities: Other (trace edema) Skin: Warm Labs Laboratory Tests Test 07/20/19 16:22 07/20/19 21:57 07/21/19 03:40 07/21/19 07:37 Glucose (Fingerstick) 94 mg/dL (70-99) 118 mg/dL (70-99) 95 mg/dL (70-99) Sodium Level 143 mmol/L (136-145) Potassium Level 3.1 mmol/L (3.5-5.1) Chloride Level 103 mmol/L (98-107) Carbon Dioxide Level 32 mmol/L (21-32) Anion Gap 8 (6-14) Blood Urea Nitrogen 9 mg/dL (7-20) Creatinine 0.5 mg/dL (0.6-1.0) Estimated GFR (Cockcroft-Gault) 124.2 Glucose Level 93 mg/dL (70-99) Calcium Level 9.0 mg/dL (8.5-10.1) Test 07/21/19 11:35 07/21/19 16:59 07/21/19 20:38 07/22/19 03:20 Glucose (Fingerstick) 105 mg/dL (70-99) 83 mg/dL (70-99) 104 mg/dL (70-99) White Blood Count 4.3 x10^3/uL (4.0-11.0) Red Blood Count 3.97 x10^6/uL (3.50-5.40) Hemoglobin 10.9 g/dL (12.0-15.5) Hematocrit 33.6 % (36.0-47.0) Mean Corpuscular Volume 85 fL (79-100) Mean Corpuscular Hemoglobin 28 pg (25-35) Mean Corpuscular Hemoglobin Concent 33 g/dL (31-37) Red Cell Distribution Width 14.5 % (11.5-14.5) Platelet Count 153 x10^3/uL (140-400) Neutrophils (%) (Auto) 61 % (31-73) Lymphocytes (%) (Auto) 16 % (24-48) Monocytes (%) (Auto) 20 % (0-9) Eosinophils (%) (Auto) 2 % (0-3) Basophils (%) (Auto) 0 % (0-3) Neutrophils # (Auto) 2.6 x10^3/uL (1.8-7.7) Lymphocytes # (Auto) 0.7 x10^3/uL (1.0-4.8) Monocytes # (Auto) 0.9 x10^3/uL (0.0-1.1) Eosinophils # (Auto) 0.1 x10^3/uL (0.0-0.7) Basophils # (Auto) 0.0 x10^3/uL (0.0-0.2) Segmented Neutrophils % 48 % (35-66) Band Neutrophils % 18 % (0-9) Lymphocytes % 10 % (24-48) Monocytes % 18 % (0-10) Eosinophils % 4 % (0-5) Basophils % 1 % (0-3) Metamyelocytes % 1 % (0-0) Platelet Estimate Adequate (ADEQUATE) Sodium Level 142 mmol/L (136-145) Potassium Level 3.5 mmol/L (3.5-5.1) Chloride Level 104 mmol/L (98-107) Carbon Dioxide Level 31 mmol/L (21-32) Anion Gap 7 (6-14) Blood Urea Nitrogen 11 mg/dL (7-20) Creatinine 0.6 mg/dL (0.6-1.0) Estimated GFR (Cockcroft-Gault) 100.6 Glucose Level 92 mg/dL (70-99) Calcium Level 9.0 mg/dL (8.5-10.1) Test 07/22/19 07:38 Glucose (Fingerstick) 87 mg/dL (70-99) Laboratory Tests Test 07/21/19 16:59 07/21/19 20:38 07/22/19 03:20 07/22/19 07:38 Glucose (Fingerstick) 83 mg/dL (70-99) 104 mg/dL (70-99) 87 mg/dL (70-99) White Blood Count 4.3 x10^3/uL (4.0-11.0) Red Blood Count 3.97 x10^6/uL (3.50-5.40) Hemoglobin 10.9 g/dL (12.0-15.5) Hematocrit 33.6 % (36.0-47.0) Mean Corpuscular Volume 85 fL (79-100) Mean Corpuscular Hemoglobin 28 pg (25-35) Mean Corpuscular Hemoglobin Concent 33 g/dL (31-37) Red Cell Distribution Width 14.5 % (11.5-14.5) Platelet Count 153 x10^3/uL (140-400) Neutrophils (%) (Auto) 61 % (31-73) Lymphocytes (%) (Auto) 16 % (24-48) Monocytes (%) (Auto) 20 % (0-9) Eosinophils (%) (Auto) 2 % (0-3) Basophils (%) (Auto) 0 % (0-3) Neutrophils # (Auto) 2.6 x10^3/uL (1.8-7.7) Lymphocytes # (Auto) 0.7 x10^3/uL (1.0-4.8) Monocytes # (Auto) 0.9 x10^3/uL (0.0-1.1) Eosinophils # (Auto) 0.1 x10^3/uL (0.0-0.7) Basophils # (Auto) 0.0 x10^3/uL (0.0-0.2) Segmented Neutrophils % 48 % (35-66) Band Neutrophils % 18 % (0-9) Lymphocytes % 10 % (24-48) Monocytes % 18 % (0-10) Eosinophils % 4 % (0-5) Basophils % 1 % (0-3) Metamyelocytes % 1 % (0-0) Platelet Estimate Adequate (ADEQUATE) Sodium Level 142 mmol/L (136-145) Potassium Level 3.5 mmol/L (3.5-5.1) Chloride Level 104 mmol/L (98-107) Carbon Dioxide Level 31 mmol/L (21-32) Anion Gap 7 (6-14) Blood Urea Nitrogen 11 mg/dL (7-20) Creatinine 0.6 mg/dL (0.6-1.0) Estimated GFR (Cockcroft-Gault) 100.6 Glucose Level 92 mg/dL (70-99) Calcium Level 9.0 mg/dL (8.5-10.1) Medications Active Scripts Medications Dose Route/Sig Max Daily Dose Days Date Category Xiidra (Lifitegrast) 1 Each Droperette 1 Each OP BID 02/02/19 Reported Vitamin D (Cholecalciferol (Vitamin D3)) 5,000 Unit Capsule 5,000 Unit PO WEEKLY 02/02/19 Reported Tylenol Extra Strength (Acetaminophen) 500 Mg Tablet 2 Mg PO DAILY 02/02/19 Reported Trazodone Hcl 50 Mg Tablet 1 Tab PO QHS 02/02/19 Reported Tramadol Hcl 50 Mg Tablet 75 Mg PO TID PRN 02/02/19 Reported Xarelto (Rivaroxaban) 20 Mg Tablet 20 Mg PO DAILY 02/02/19 Reported Risperdal (Risperidone) 1 Mg Tablet 1 Mg PO QHS 02/02/19 Reported Proventil Hfa Inhaler (Albuterol Sulfate) 6.7 Gm Hfa.aer.ad 1 Puff IH PRN Q4HRS PRN 02/02/19 Reported Protonix (Pantoprazole Sodium) 20 Mg Tablet.dr 40 Mg PO DAILY 02/02/19 Reported Potassium Chloride 20 Meq Tablet.er 20 Meq PO DAILY 02/02/19 Reported Miralax (Polyethylene Glycol 3350) 17 Gm Powd.pack 1 Packet PO DAILY PRN 02/02/19 Reported Pilocarpine Hcl 5 Mg Tablet 10 Mg PO TID 02/02/19 Reported Meclizine Hcl 25 Mg Tablet 1 Tab PO TID 02/02/19 Reported Lyrica (Pregabalin) 75 Mg Capsule 1 Cap PO TID 02/02/19 Reported Loratadine 10 Mg Tablet 1 Tab PO DAILY 02/02/19 Reported Levothyroxine Sodium 175 Mcg Tablet 1 Tab PO DAILY 02/02/19 Reported Lasix (Furosemide) 20 Mg Tablet 1 Tab PO DAILY 02/02/19 Reported Hydroxyzine Hcl 25 Mg Tablet 1 Tab PO BID 02/02/19 Reported Divalproex Sodium Er (Divalproex Sodium) 500 Mg Tab.er.24h 2 Tab PO QHS 02/02/19 Reported Divalproex Sodium Er (Divalproex Sodium) 500 Mg Tab.er.24h 1 Tab PO DAILY 02/02/19 Reported Colace (Docusate Sodium) 100 Mg Capsule 1 Cap PO BID 02/02/19 Reported Celexa (Citalopram Hydrobromide) 40 Mg Tablet 1 Tab PO DAILY 02/02/19 Reported Celebrex (Celecoxib) 200 Mg Capsule 1 Cap PO DAILY 02/02/19 Reported Budesonide 0.5 Mg/2 Ml Ampul.neb 1 Vial NEB BID 02/02/19 Reported Biofreeze (Menthol) 118 Ml Gel..ml. 118 Ml TP TID 02/02/19 Reported Baclofen 10 Mg Tablet 1 Tab PO TID 02/02/19 Reported Artificial Tears Eye Drops (Dextran 70/Hypromellose) 15 Ml Drops 1 Drop EACHEYE PRN PRN 02/02/19 Reported Amlodipine Besylate 5 Mg Tablet 5 Mg PO DAILY 02/02/19 Reported Albuterol Sulfate Neb Soln (Albuterol Sulfate) 2.5 Mg/3 Ml Vial.neb 1 Vial NEB PRN Q4HRS 02/02/19 Reported Impression . 1. Pdfej-ki-vvknolu hypoxic and hypercapnic respiratory failure secondary to sepsis. 2. Underlying chronic obstructive pulmonary disease with chronic respiratory failure, on home oxygen at 2 liters. Now, requiring BiPAP. 3. High grade fever./sepsis with.Gram-negative bacteremia, source likely genitourinary. possibility of pneumonia is also a consideration. Influenza screen is negative. 4. Mildly increased troponin level. 5. Underlying bipolar disorder. Plan . 1. Repeat arterial blood gases improved. Avoid hyperoxia. we will continue BiPAP qhs and prn during the day 2. Continue broad-spectrum antibiotic. 3. Follow all cultures. 4. ID recommendation reg gram neg bacteremia 5. Lovenox for DVT prophylaxis. 6. Bronchodilators. 7. ok with LTAC eval Discussed with LESLEY SOTO MD Jul 22, 2019 13:08
--- NOTE | 2019-07-22 13:22 | PDOC3 ---
Discharge Summary Date of Admission: Jul 18, 2019 Date of Discharge: Jul 22, 2019 Follow-Up: 1-2 days Admitting Diagnosis comment: discharge dx sepsis Acute hypoxic respiratory failure Dysuria - UTI Alkalosis - possibly from diuresis Bipolar Disorder - with anxiety and depression. COPD w. acute exacerbation Constipation - Diabetes-Type II - sliding scale in house GERD - cont meds High Cholesterol - cont statin Hypertension - cont meds Hypothyroid - will check TSH, cont meds AJ on CPAP - 9cm H2O QHS at SNF. Continue off bipap on nasal o2 fever pattern improved ID recommendation reg gram neg bacteremia, iv zosyn ok with LTAC eval 07/22 34 min pt exam, chart review, > 50% of time spent with exam, chart review, pt care coordination History of Present Illness History of Present Illness off bipap, doing much better talkative and alert today PULM and ID consult following will monitor Vitals Vitals Vital Signs Date Time Temp Pulse Resp B/P (MAP) Pulse Ox O2 Delivery O2 Flow Rate FiO2 07/22/19 09:17 54 139/61 07/22/19 08:00 Nasal Cannula 4.0 07/22/19 07:46 93 07/22/19 07:00 98.1 16 98.1 Physical Exam Physical Exam GENERAL: Alert, cooperative ,comfortable HEENT: Normocephalic, atraumatic, anicteric.thrush + NECK: Supple. LUNGS: Decreased breath sounds. HEART: S1, S2. No gallops or murmurs. ABDOMEN: Soft, nontender and obese. Bowel sounds present. EXTREMITIES: No edema, no cyanosis. NEUROLOGIC: Alert and awake, on BiPAP. Moves all 4 extremities. Grossly nonfocal. GENITOURINARY: External urinary catheter in place. General: Alert, Oriented X3, Cooperative, mild distress Heart: Regular rate Lungs: Clear Abdomen: Normal bowel sounds, Soft, No tenderness, No hepatosplenomegaly, No masses Extremities: No clubbing, No cyanosis, Normal pulses, Other (1+ pedal edema, venous stasis dermatitis. Gluteal skin breakdown) Skin: No rashes, Other FINAL DIAGNOSIS Problems Medical Problems: (1) Alkalosis Status: Acute (2) Bipolar disorder Status: Chronic (3) COPD (chronic obstructive pulmonary disease) Status: Chronic (4) DM2 (diabetes mellitus, type 2) Status: Chronic (5) Dyspnea Status: Acute (6) Dysuria Status: Acute (7) GERD (gastroesophageal reflux disease) Status: Chronic (8) High cholesterol Status: Chronic (9) Hypothyroid Status: Chronic (10) Hypoxia Status: Acute Brief Hospital Course Ms. Hartley is a 64 old [sex] who presented with [ ] CONDITION AT DISCHARGE: Improved Discharge Medications Current Medications Sodium Chloride 1,000 ml @ 100 mls/hr Q10H IV Last administered on 07/18/19 13:14; Start 07/18/19 at 12:25; Stop 07/18/19 at 22:24; Status DC Piperacillin Sod/ Tazobactam Sod 3.375 gm/Sodium Chloride 50 ml @ 100 mls/hr 1X ONCE IV Last administered on 07/18/19 13:14; Start 07/18/19 at 12:45; Stop 07/18/19 at 13:14; Status DC Vancomycin HCl 250 ml @ 250 mls/hr 1X ONCE IV Last administered on 07/18/19at 13:58; Start 07/18/19 at 12:45; Stop 07/18/19 at 13:44; Status DC Albuterol/ Ipratropium (Duoneb) 3 ml 1X ONCE NEB Last administered on 07/18/19 17:56; Start 07/18/19 at 12:45; Stop 07/18/19 at 12:46; Status DC Furosemide (Lasix) 40 mg 1X ONCE IVP Last administered on 07/18/19at 15:48; Start 07/18/19 at 14:45; Stop 07/18/19 at 14:47; Status DC Magnesium Sulfate 100 ml @ 25 mls/hr 1X ONCE IV Last administered on 07/18/19at 18:02; Start 07/18/19 at 16:30; Stop 07/18/19 at 20:29; Status DC Acetaminophen (Tylenol) 500 mg PRN DAILY PRN PO HEADACHE / TEMP Last administered on 07/19/19 17:02; Start 07/18/19 at 09:00 Albuterol Sulfate (Ventolin Neb Soln) 2.5 mg PRN Q4HRS NEB ; Start 07/18/19 at 16:15 Amlodipine Besylate (Norvasc) 5 mg DAILY PO Last administered on 07/22/19 09:17; Start 07/18/19 at 17:00 Budesonide (Pulmicort) 2 mg RTBID NEB Last administered on 07/18/19 20:42; Start 07/18/19 at 20:00; Stop 07/18/19 at 20:59; Status DC Vitamin D (Vitamin D3) 5,000 unit WEEKLY PO Last administered on 07/18/19 18:02; Start 07/18/19 at 17:00 Divalproex Sodium (Depakote Er) 500 mg DAILY PO Last administered on 07/22/19 09:17; Start 07/19/19 at 09:00 Divalproex Sodium (Depakote Er) 1,000 mg QHS PO Last administered on 07/21/19 21:38; Start 07/18/19 at 21:00 Docusate Sodium (Colace) 100 mg BID PO Last administered on 07/22/19 09:17; Start 07/18/19 at 21:00 Levothyroxine Sodium (Synthroid) 175 mcg DAILY PO Last administered on 07/22/19 09:17; Start 07/18/19 at 17:00 Pilocarpine HCl (Salagen) 10 mg TID PO Last administered on 07/22/19 09:17; Start 07/18/19 at 21:00 Polyethylene Glycol (miraLAX PACKET) 17 gm PRN DAILY PRN PO CONSTIPATION; Start 07/18/19 at 16:15 Pregabalin (Lyrica) 75 mg TID PO Last administered on 07/22/19 09:17; Start 07/18/19 at 21:00 Risperidone (RisperDAL) 1 mg QHS PO Last administered on 07/21/19 21:38; Start 07/18/19 at 21:00 Tramadol HCl (Ultram) 75 mg PRN TID PRN PO PAIN MILD TO MOD Last administered on 07/19/19 14:13; Start 07/18/19 at 16:15 Trazodone HCl (Desyrel) 50 mg QHS PO Last administered on 07/21/19 21:38; Start 07/18/19 at 21:00 Enoxaparin Sodium (Lovenox 60mg Syringe) 60 mg Q12HR SQ Last administered on 07/22/19 09:17; Start 07/18/19 at 21:00 Insulin Human Lispro (HumaLOG) 0-7 UNITS TIDWMEALS SQ ; Start 07/18/19 at 17:00 Dextrose (Dextrose 50%-Water Syringe) 12.5 gm PRN Q15MIN PRN IV SEE COMMENTS; Start 07/18/19 at 16:45 Dextrose 250 ml PRN Q15MIN PRN IV SEE COMMENTS; Start 07/18/19 at 16:45 Vancomycin HCl (Vanco Per Pharmacy) 1 each PRN DAILY PRN MC SEE COMMENTS Last administered on 07/18/19at 20:28; Start 07/18/19 at 20:30; Stop 07/19/19 at 10:54; Status DC Vancomycin HCl 2 gm/Sodium Chloride 500 ml @ 250 mls/hr Q12H IV Last administered on 07/19/19at 08:47; Start 07/19/19 at 09:00; Stop 07/19/19 at 10:54; Status DC Piperacillin Sod/ Tazobactam Sod 3.375 gm/Sodium Chloride 50 ml @ 100 mls/hr Q6HRS IV Last administered on 07/19/19at 06:19; Start 07/18/19 at 21:00; Stop 07/19/19 at 10:55; Status DC Vancomycin HCl 1 gm/Sodium Chloride 250 ml @ 250 mls/hr 1X ONCE IV Last adm inistered on 07/18/19at 23:09; Start 07/18/19 at 20:30; Stop 07/19/19 at 10:54; Status DC Ketorolac Tromethamine (Toradol 15mg Vial) 15 mg 1X ONCE IV Last administered on 07/18/19at 22:28; Start 07/18/19 at 21:00; Stop 07/18/19 at 21:01; Status DC Vancomycin HCl (Vancomycin Trough Level) 1 each 1X ONCE MC ; Start 07/20/19 at 08:30; Stop 07/20/19 at 08:31; Status Cancel Albumin Human 100 ml @ 100 mls/hr 1X ONCE IV Last administered on 07/19/19at 00:25; Start 07/19/19 at 00:15; Stop 07/19/19 at 01:14; Status DC Albumin Human 500 ml @ 125 mls/hr 1X ONCE IV Last administered on 07/19/19at 03:37; Start 07/19/19 at 03:00; Stop 07/19/19 at 06:59; Status DC Acetazolamide Sodium (Diamox Inj) 500 mg 1X ONCE IVP Last administered on 07/19/19at 03:37; Start 07/19/19 at 03:15; Stop 07/19/19 at 03:16; Status DC Acetazolamide Sodium (Diamox Inj) 500 mg DAILY ONCE IVP ; Start 07/19/19 at 09:00; Stop 07/19/19 at 05:02; Status DC Acetazolamide Sodium (Diamox Inj) 500 mg DAILY IVP Last administered on 07/22/19at 09:17; Start 07/20/19 at 09:00 Piperacillin Sod/ Tazobactam Sod 4.5 gm/Sodium Chloride 100 ml @ 200 mls/hr Q6HRS IV Last administered on 07/22/19at 12:17; Start 07/19/19 at 12:00 Lactobacillus Rhamnosus (Culturelle) 1 cap BID PO Last administered on 07/22/19at 09:17; Start 07/19/19 at 21:00 Potassium Chloride (Klor-Con) 40 meq 1X ONCE PO Last administered on 07/21/19at 16:07; Start 07/21/19 at 16:00; Stop 07/21/19 at 16:02; Status DC Potassium Chloride (Klor-Con) 20 meq DAILYWBKFT PO Last administered on 07/22/19at 09:17; Start 07/22/19 at 08:00 Micafungin Sodium 100 mg/Dextrose 100 ml @ 100 mls/hr Q24H IV Last administered on 07/22/19at 10:10; Start 07/22/19 at 10:30 Active Scripts Active Reported Xiidra (Lifitegrast) 1 Each Droperette 1 Each OP BID Vitamin D (Cholecalciferol (Vitamin D3)) 5,000 Unit Capsule 5,000 Unit PO WEEKLY Tylenol Extra Strength (Acetaminophen) 500 Mg Tablet 2 Mg PO DAILY Trazodone Hcl 50 Mg Tablet 1 Tab PO QHS Tramadol Hcl 50 Mg Tablet 75 Mg PO TID PRN Xarelto (Rivaroxaban) 20 Mg Tablet 20 Mg PO DAILY Risperdal (Risperidone) 1 Mg Tablet 1 Mg PO QHS Proventil Hfa Inhaler (Albuterol Sulfate) 6.7 Gm Hfa.aer.ad 1 Puff IH PRN Q4HRS PRN Protonix (Pantoprazole Sodium) 20 Mg Tablet.dr 40 Mg PO DAILY Potassium Chloride 20 Meq Tablet.er 20 Meq PO DAILY Miralax (Polyethylene Glycol 3350) 17 Gm Powd.pack 1 Packet PO DAILY PRN Pilocarpine Hcl 5 Mg Tablet 10 Mg PO TID Meclizine Hcl 25 Mg Tablet 1 Tab PO TID Lyrica (Pregabalin) 75 Mg Capsule 1 Cap PO TID Loratadine 10 Mg Tablet 1 Tab PO DAILY Levothyroxine Sodium 175 Mcg Tablet 1 Tab PO DAILY Lasix (Furosemide) 20 Mg Tablet 1 Tab PO DAILY Hydroxyzine Hcl 25 Mg Tablet 1 Tab PO BID Divalproex Sodium Er (Divalproex Sodium) 500 Mg Tab.er.24h 2 Tab PO QHS Divalproex Sodium Er (Divalproex Sodium) 500 Mg Tab.er.24h 1 Tab PO DAILY Colace (Docusate Sodium) 100 Mg Capsule 1 Cap PO BID Celexa (Citalopram Hydrobromide) 40 Mg Tablet 1 Tab PO DAILY Celebrex (Celecoxib) 200 Mg Capsule 1 Cap PO DAILY Budesonide 0.5 Mg/2 Ml Ampul.neb 1 Vial NEB BID Biofreeze (Menthol) 118 Ml Gel..ml. 118 Ml TP TID Baclofen 10 Mg Tablet 1 Tab PO TID Artificial Tears Eye Drops (Dextran 70/Hypromellose) 15 Ml Drops 1 Drop EACHEYE PRN PRN Amlodipine Besylate 5 Mg Tablet 5 Mg PO DAILY Albuterol Sulfate Neb Soln (Albuterol Sulfate) 2.5 Mg/3 Ml Vial.neb 1 Vial NEB PRN Q4HRS Vital Signs Vital Signs Date Time Temp Pulse Resp B/P (MAP) Pulse Ox O2 Delivery O2 Flow Rate FiO2 07/22/19 11:00 98.0 43 18 132/58 (82) 96 Room Air 98.0 07/22/19 08:00 4.0 Labs Laboratory Tests Test 07/20/19 16:22 07/20/19 21:57 07/21/19 03:40 07/21/19 07:37 Glucose (Fingerstick) 94 mg/dL (70-99) 118 mg/dL (70-99) 95 mg/dL (70-99) Sodium Level 143 mmol/L (136-145) Potassium Level 3.1 mmol/L (3.5-5.1) Chloride Level 103 mmol/L (98-107) Carbon Dioxide Level 32 mmol/L (21-32) Anion Gap 8 (6-14) Blood Urea Nitrogen 9 mg/dL (7-20) Creatinine 0.5 mg/dL (0.6-1.0) Estimated GFR (Cockcroft-Gault) 124.2 Glucose Level 93 mg/dL (70-99) Calcium Level 9.0 mg/dL (8.5-10.1) Test 07/21/19 11:35 07/21/19 16:59 07/21/19 20:38 07/22/19 03:20 Glucose (Fingerstick) 105 mg/dL (70-99) 83 mg/dL (70-99) 104 mg/dL (70-99) White Blood Count 4.3 x10^3/uL (4.0-11.0) Red Blood Count 3.97 x10^6/uL (3.50-5.40) Hemoglobin 10.9 g/dL (12.0-15.5) Hematocrit 33.6 % (36.0-47.0) Mean Corpuscular Volume 85 fL (79-100) Mean Corpuscular Hemoglobin 28 pg (25-35) Mean Corpuscular Hemoglobin Concent 33 g/dL (31-37) Red Cell Distribution Width 14.5 % (11.5-14.5) Platelet Count 153 x10^3/uL (140-400) Neutrophils (%) (Auto) 61 % (31-73) Lymphocytes (%) (Auto) 16 % (24-48) Monocytes (%) (Auto) 20 % (0-9) Eosinophils (%) (Auto) 2 % (0-3) Basophils (%) (Auto) 0 % (0-3) Neutrophils # (Auto) 2.6 x10^3/uL (1.8-7.7) Lymphocytes # (Auto) 0.7 x10^3/uL (1.0-4.8) Monocytes # (Auto) 0.9 x10^3/uL (0.0-1.1) Eosinophils # (Auto) 0.1 x10^3/uL (0.0-0.7) Basophils # (Auto) 0.0 x10^3/uL (0.0-0.2) Segmented Neutrophils % 48 % (35-66) Band Neutrophils % 18 % (0-9) Lymphocytes % 10 % (24-48) Monocytes % 18 % (0-10) Eosinophils % 4 % (0-5) Basophils % 1 % (0-3) Metamyelocytes % 1 % (0-0) Platelet Estimate Adequate (ADEQUATE) Sodium Level 142 mmol/L (136-145) Potassium Level 3.5 mmol/L (3.5-5.1) Chloride Level 104 mmol/L (98-107) Carbon Dioxide Level 31 mmol/L (21-32) Anion Gap 7 (6-14) Blood Urea Nitrogen 11 mg/dL (7-20) Creatinine 0.6 mg/dL (0.6-1.0) Estimated GFR (Cockcroft-Gault) 100.6 Glucose Level 92 mg/dL (70-99) Calcium Level 9.0 mg/dL (8.5-10.1) Test 07/22/19 07:38 Glucose (Fingerstick) 87 mg/dL (70-99) Laboratory Tests Test 07/21/19 16:59 07/21/19 20:38 07/22/19 03:20 07/22/19 07:38 Glucose (Fingerstick) 83 mg/dL (70-99) 104 mg/dL (70-99) 87 mg/dL (70-99) White Blood Count 4.3 x10^3/uL (4.0-11.0) Red Blood Count 3.97 x10^6/uL (3.50-5.40) Hemoglobin 10.9 g/dL (12.0-15.5) Hematocrit 33.6 % (36.0-47.0) Mean Corpuscular Volume 85 fL (79-100) Mean Corpuscular Hemoglobin 28 pg (25-35) Mean Corpuscular Hemoglobin Concent 33 g/dL (31-37) Red Cell Distribution Width 14.5 % (11.5-14.5) Platelet Count 153 x10^3/uL (140-400) Neutrophils (%) (Auto) 61 % (31-73) Lymphocytes (%) (Auto) 16 % (24-48) Monocytes (%) (Auto) 20 % (0-9) Eosinophils (%) (Auto) 2 % (0-3) Basophils (%) (Auto) 0 % (0-3) Neutrophils # (Auto) 2.6 x10^3/uL (1.8-7.7) Lymphocytes # (Auto) 0.7 x10^3/uL (1.0-4.8) Monocytes # (Auto) 0.9 x10^3/uL (0.0-1.1) Eosinophils # (Auto) 0.1 x10^3/uL (0.0-0.7) Basophils # (Auto) 0.0 x10^3/uL (0.0-0.2) Segmented Neutrophils % 48 % (35-66) Band Neutrophils % 18 % (0-9) Lymphocytes % 10 % (24-48) Monocytes % 18 % (0-10) Eosinophils % 4 % (0-5) Basophils % 1 % (0-3) Metamyelocytes % 1 % (0-0) Platelet Estimate Adequate (ADEQUATE) Sodium Level 142 mmol/L (136-145) Potassium Level 3.5 mmol/L (3.5-5.1) Chloride Level 104 mmol/L (98-107) Carbon Dioxide Level 31 mmol/L (21-32) Anion Gap 7 (6-14) Blood Urea Nitrogen 11 mg/dL (7-20) Creatinine 0.6 mg/dL (0.6-1.0) Estimated GFR (Cockcroft-Gault) 100.6 Glucose Level 92 mg/dL (70-99) Calcium Level 9.0 mg/dL (8.5-10.1) Allergies Allergies Coded Allergies Type Severity Reaction Last Updated Verified Ymqlgji-Fdg-Rof Reductase Inhibitor Allergy Intermediate 02/02/19 Yes azithromycin Allergy Intermediate 02/02/19 Yes budesonide Allergy Intermediate 02/02/19 Yes ceftriaxone Allergy Intermediate 02/02/19 Yes ciprofloxacin Allergy Intermediate 02/02/19 Yes clindamycin Allergy Intermediate 02/02/19 Yes formoterol Allergy Intermediate 02/02/19 Yes latex Allergy Intermediate 02/02/19 Yes lorazepam Allergy Intermediate 02/02/19 Yes morphine Allergy Intermediate 02/02/19 Yes mupirocin Allergy Intermediate 02/02/19 Yes sulfur dioxide Allergy Intermediate 02/02/19 Yes Disposition/Orders: Other (d/c ltac) SHANTA ALBRECHT MD Jul 22, 2019 13:22
[2019-07-22] MEDS ORDERED: INSU100I11 SQ (13:29)
[2019-07-22] MEDS ORDERED: [UNRECOGNIZED DRUG - OTHER] IVP (13:29)
[2019-07-22] MEDS ORDERED: PIPE4.5F2 IV (13:29)
[2019-07-22] MEDS ORDERED: LACT1CAP19 PO (13:29)
[2019-07-22] MEDS ORDERED: ENOX60DI3 SQ (13:29)
[2019-07-22] MEDS ORDERED: MICA100V3 IV (13:29)
[2019-07-22 15:00] VITALS: BP 149/71
--- NOTE | 2019-07-22 15:51 | NUR ---
HELENA following pt. Pt has been accepted at [facility]. Orders faxed and Pt will transport via [facility] at 1600. Pt's DPOA notified and agreeable. Tyler at [facility] also notified. Packet on chart and D/W RN.
--- NOTE | 2019-07-22 16:27 | NUR ---
Discharge Note: ROGE [facility] J[facility] Discharge instructions and discharge home medications reviewed with Yanet at [facility] and a copy given. All questions have been answered and understanding verbalized. The following instructions and handouts were given: transfer of care Discontinued lines and drains: 20 gauge right AC, tip intact. patient tolerated well. Patient discharged to [facility] via EMS.
== END 2019-07-22 16:08 | DRG 871 ==
LOC: ER 12:00 → 6 SOUTH 14:45
PROVIDERS: ADMIT Internal Medicine; ATTEND Internal Medicine
PROC: 5A09457 Assistance with Respiratory Ventilation, 24-96 Consecutive Hours, Continuous Positive Airway Pressure (ICD-10-PCS; 2019-07-18)
PROC: 5A09357 Assistance with Respiratory Ventilation, Less than 24 Consecutive Hours, Continuous Positive Airway Pressure (ICD-10-PCS; 2019-07-20)
PROC: 5A09357 Assistance with Respiratory Ventilation, Less than 24 Consecutive Hours, Continuous Positive Airway Pressure (ICD-10-PCS; principal; 2019-07-21)
PROC: 5A09357 Assistance with Respiratory Ventilation, Less than 24 Consecutive Hours, Continuous Positive Airway Pressure (ICD-10-PCS; 2019-07-22)
DX: A41.9 Sepsis, unspecified organism (principal); J96.21 Acute and chronic respiratory failure with hypoxia; J96.22 Acute and chronic respiratory failure with hypercapnia; E87.3 Alkalosis; J44.1 Chronic obstructive pulmonary disease with (acute) exacerbation; Z68.43 Body mass index [BMI] 50.0-59.9, adult; N39.0 Urinary tract infection, site not specified; K21.9 Gastro-esophageal reflux disease without esophagitis; B37.9 Candidiasis, unspecified; B96.89 Other specified bacterial agents as the cause of diseases classified elsewhere; E03.9 Hypothyroidism, unspecified; E11.9 Type 2 diabetes mellitus without complications; E66.9 Obesity, unspecified; E78.00 Pure hypercholesterolemia, unspecified; F31.9 Bipolar disorder, unspecified; F41.9 Anxiety disorder, unspecified; G47.33 Obstructive sleep apnea (adult) (pediatric); I11.0 Hypertensive heart disease with heart failure; I27.20 Pulmonary hypertension, unspecified; I50.9 Heart failure, unspecified; K59.00 Constipation, unspecified; R65.20 Severe sepsis without septic shock; Z99.3 Dependence on wheelchair; Z99.81 Dependence on supplemental oxygen; M19.90 Unspecified osteoarthritis, unspecified site; Z88.5 Allergy status to narcotic agent; Z88.2 Allergy status to sulfonamides; Z88.8 Allergy status to other drugs, medicaments and biological substances; Z88.1 Allergy status to other antibiotic agents; Z91.040 Latex allergy status
CPT/HCPCS: 36415; 36600; 71045; 74176; 80048; 80053; 80164; 81001; 82805; 82962; 83605; 83735; 83880; 84100; 84145; 84443; 84484; 85007; 85025; 85610; 87040; 87086; 87205; 87641; 87804; 93005; 94640; 94660; J1120; J1650; J1815; J1885; J1940; J2248; J2543; J3370; J3475; J7030; J7040; J7050; J7620; J7626; P9045; P9046; 99285-25; G0378

== ENCOUNTER 2019-08-22 09:18 | Inpatient (IN) | payer MEDICARE, MEDICAID ==
[~2019-08-22] VITALS: Ht 170.2 cm; Wt 132.4 kg
[~2019-08-22 09:18] MED LIST changes: -ALBU2.5V8 IH; +ENOX60DI3 SQ; +INSU100I11 SQ; +LACT1CAP19 PO; +MICA100V3 IV; -OXYB15TA PO; +OXYB15TA17 PO; +PIPE4.5F2 IV; +PROVENTIL HFA6.7 GM IH; +[UNRECOGNIZED DRUG - OTHER] IVP
[2019-08-22] MEDS ORDERED: VANCOMYCIN PER PHARMACY MC PRN (09:30)
--- NOTE | 2019-08-22 09:44 | PHYS DOC ---
Past Medical History Past Medical History: Anxiety, Constipation, Diabetes-Type II, GERD, High Cholesterol, Hypertension, Hypothyroid Additional Past Medical Histor: BIPOLAR, MANIAC, AJ, OA, HOME OXYGEN 2 LNC Past Surgical History: No Surgical History Alcohol Use: None Drug Use: None Adult General Chief Complaint Chief Complaint: SHORTNESS OF BREATH HPI HPI 64-year-old female underlying history of developmental delay, hypertension, heart failure, chronic respiratory failure, anxiety, obesity presents to the ER with fever, decreased O2 saturations. Family fever was found this morning to 101.3, patient was given 500 mg of Tylenol. She is well had decreased O2 saturations, her baseline is 3 L. She was 86% on 3 L subsequently improved his 95% on 6 L nasal cannula. Patient complains of pain all over, this is chronic. She as well as cough appreciated on exam. She denies any abdominal pain, nausea, vomiting, headache or visual change. Review of Systems Review of Systems Constitutional: Fever HENT: Denies nasal congestion or sore throat [] Respiratory: Cough/shortness of breath [] Cardiovascular: No additional information not addressed in HPI [] GI: Denies abdominal pain, nausea, vomiting, bloody stools or diarrhea [] Musculoskeletal: chronic pain Neurologic: Denies headache, focal weakness, generalized weakness[] All other systems were reviewed and found to be within normal limits, except as documented in this note. Current Medications Current Medications Current Medications Medications (Trade) Dose Ordered Sig/Holden Start Time Stop Time Status Last Admin Dose Admin Albuterol/ Ipratropium (Duoneb) 3 ml 1X ONCE 08/22/19 10:00 08/22/19 10:01 DC 08/22/19 09:51 3 ML Aztreonam (Azactam) 2 gm 1X ONCE 08/22/19 10:00 08/22/19 10:01 DC 08/22/19 10:07 2 GM Info (CONTRAST GIVEN -- Rx MONITORING) 1 each PRN DAILY PRN 08/22/19 11:00 08/24/19 10:59 Iohexol (Omnipaque 350 Mg/ml) 90 ml 1X ONCE 08/22/19 11:00 08/22/19 11:01 DC 08/22/19 11:13 90 ML Sodium Chloride 1,000 ml @ 1,860 mls/hr Q33M 08/22/19 10:00 08/22/19 11:00 DC 08/22/19 09:54 1,860 MLS/HR Vancomycin HCl (Vanco Per Pharmacy) 1 each PRN DAILY PRN 08/22/19 09:30 Vancomycin HCl 1.5 gm/Sodium Chloride 500 ml @ 250 mls/hr 1X ONCE 08/22/19 10:00 08/22/19 11:59 08/22/19 10:10 250 MLS/HR Allergies Allergies Allergies Coded Allergies Type Severity Reaction Last Updated Verified Ejfbbal-Aix-Wot Reductase Inhibitor Allergy Intermediate 02/02/19 Yes azithromycin Allergy Intermediate 02/02/19 Yes budesonide Allergy Intermediate 02/02/19 Yes ceftriaxone Allergy Intermediate 02/02/19 Yes ciprofloxacin Allergy Intermediate 02/02/19 Yes clindamycin Allergy Intermediate 02/02/19 Yes formoterol Allergy Intermediate 02/02/19 Yes latex Allergy Intermediate 02/02/19 Yes lorazepam Allergy Intermediate 02/02/19 Yes morphine Allergy Intermediate 02/02/19 Yes mupirocin Allergy Intermediate 02/02/19 Yes sulfur dioxide Allergy Intermediate 02/02/19 Yes Physical Exam Physical Exam Constitutional: Well developed, well nourished, no acute distress, non-toxic appearance. [] HENT: Normocephalic, atraumatic, bilateral external ears normal, oropharynx moist, no oral exudates, nose normal. [] Eyes: PERRLA, EOMI, conjunctiva normal, no discharge. [] Neck: Normal range of motion, no tenderness, supple, no stridor. [] Cardiovascular:Heart rate regular rhythm, no murmur [] Lungs & Thorax: Bilateral breath sounds clear to auscultation [] Abdomen: Bowel sounds normal, soft, no tenderness, no masses, no pulsatile masses. [] Skin: Warm, dry, no erythema, no rash. [] Back: No tenderness, no CVA tenderness. [] Extremities: No tenderness, no cyanosis, no clubbing, ROM intact, no edema. [] Neurologic: Alert and oriented X 3, normal motor function, normal sensory function, no focal deficits noted. [] Psychologic: Affect normal, judgement normal, mood normal. [] Current Patient Data Vital Signs Vital Signs Date Time Temp Pulse Resp B/P (MAP) Pulse Ox O2 Delivery O2 Flow Rate FiO2 08/22/19 09:45 92 Venturi Mask 15.0 08/22/19 09:18 100.9 92 20 139/76 (97) 100.9 Lab Values Laboratory Tests Test 08/22/19 09:25 08/22/19 09:38 White Blood Count 5.0 x10^3/uL (4.0-11.0) Red Blood Count 4.42 x10^6/uL (3.50-5.40) Hemoglobin 12.4 g/dL (12.0-15.5) Hematocrit 38.5 % (36.0-47.0) Mean Corpuscular Volume 87 fL (79-100) Mean Corpuscular Hemoglobin 28 pg (25-35) Mean Corpuscular Hemoglobin Concent 32 g/dL (31-37) Red Cell Distribution Width 16.5 % (11.5-14.5) H Platelet Count 138 x10^3/uL (140-400) L Neutrophils (%) (Auto) 66 % (31-73) Lymphocytes (%) (Auto) 23 % (24-48) L Monocytes (%) (Auto) 9 % (0-9) Eosinophils (%) (Auto) 3 % (0-3) Basophils (%) (Auto) 0 % (0-3) Neutrophils # (Auto) 3.3 x10^3/uL (1.8-7.7) Lymphocytes # (Auto) 1.1 x10^3/uL (1.0-4.8) Monocytes # (Auto) 0.5 x10^3/uL (0.0-1.1) Eosinophils # (Auto) 0.1 x10^3/uL (0.0-0.7) Basophils # (Auto) 0.0 x10^3/uL (0.0-0.2) Sodium Level 145 mmol/L (136-145) Potassium Level 3.7 mmol/L (3.5-5.1) Chloride Level 104 mmol/L (98-107) Carbon Dioxide Level 36 mmol/L (21-32) H Anion Gap 5 (6-14) L Blood Urea Nitrogen 11 mg/dL (7-20) Creatinine 0.5 mg/dL (0.6-1.0) L Estimated GFR (Cockcroft-Gault) 124.2 BUN/Creatinine Ratio 22 (6-20) H Glucose Level 144 mg/dL (70-99) H Lactic Acid Level 1.1 mmol/L (0.4-2.0) Calcium Level 9.6 mg/dL (8.5-10.1) Total Bilirubin 0.2 mg/dL (0.2-1.0) Aspartate Amino Transferase (AST) 21 U/L (15-37) Alanine Aminotransferase (ALT) 8 U/L (14-59) L Alkaline Phosphatase 67 U/L (46-116) WS-Dtx-B-Type Natriuretic Peptide 1158 pg/mL (0-124) H Total Protein 7.4 g/dL (6.4-8.2) Albumin 2.4 g/dL (3.4-5.0) L Albumin/Globulin Ratio 0.5 (1.0-1.7) L Procalcitonin < 0.10 ng/mL (0.00-0.10) Urine Collection Type Unknown Urine Color Yellow Urine Clarity Clear Urine pH 7.5 Urine Specific Ayden 1.010 Urine Protein Negative mg/dL (NEG-TRACE) Urine Glucose (UA) Negative mg/dL (NEG) Urine Ketones (Stick) Negative mg/dL (NEG) Urine Blood Negative (NEG) Urine Nitrite Negative (NEG) Urine Bilirubin Negative (NEG) Urine Urobilinogen Dipstick 1.0 mg/dL (0.2 mg/dL) Urine Leukocyte Esterase Large (NEG) Urine RBC 3-5 /HPF (0-2) Urine WBC >40 /HPF (0-4) Urine Squamous Epithelial Cells Occ /LPF Urine Bacteria Few /HPF (0-FEW) O2 Saturation 89 % (92-99) L Arterial Blood pH 7.35 (7.35-7.45) Arterial Blood pCO2 at Patient Temp 67 mmHg (35-46) *H Arterial Blood pO2 at Patient Temp 58 mmHg (65-108) L Arterial Blood HCO3 36 mmol/L (21-28) H Arterial Blood Base Excess 8 mmol/L (-3-3) H FiO2 50 Laboratory Tests 08/22/19 09:25 Laboratory Tests 08/22/19 09:25 EKG EKG EKG reveals heart rate 87, left axis deviation, no evidence of ST elevation appreciated.[] Interpretation Time: Interpretation time 1397 Radiology/Procedures Radiology/Procedures [facility] [address] [place] [address] IMAGING REPORT Signed PATIENT: ROGE RAM ACCOUNT: [id number] : 1955 LOCATION: ER AGE: 64 SEX: F EXAM STATUS: REG ER ORD. PHYSICIAN: CAROL ANN GARRIDO MD REASON: SOB/Hypoxia PROCEDURE: CHEST AP ONLY CHEST AP ONLY History: Shortness of breath, hypoxia Comparison: July 18, 2019 Findings: Single view of the chest is submitted. There is right upper extremity PICC with the tip near the cavoatrial junction. Cardiac silhouette is somewhat prominent although unchanged. There is no pneumothorax. There is probable very small right pleural effusion as seen previously. There is right hilar fullness as seen previously. There is also fullness in the AP window as seen previously. Mild left base opacity is likely greater. There is degenerative change of bilateral shoulders. Impression: 1. There is again right hilar fullness and in the AP window probably underlying lymphadenopathy as seen previously. There is suspected very small right pleural effusion. There is left base atelectasis/infiltrate greater than previously. Electronically signed by: Cipriano Turk MD (08/22/2019 10:20 AM) [facility] DICTATED and SIGNED BY: CIPRIANO TURK MD DATE: 08/22/19 1020 [] [facility] [address] [place] [address] IMAGING REPORT Signed PATIENT: ROGE RAM ACCOUNT: [id number] : 1955 LOCATION: ER AGE: 64 SEX: F EXAM STATUS: REG ER ORD. PHYSICIAN: CAROL ANN GARRIDO MD REASON: Altered Mental Status PROCEDURE: CT HEAD WO CONTRAST CT HEAD WO CONTRAST History: Altered mental status Comparison: None. Technique: Noncontrast CT imaging was performed of the head. Exposure: One or more of the following individualized dose reduction techniques were utilized for this examination: 1. Automated exposure control 2. Adjustment of the mA and/or kV according to patient size 3. Use of iterative reconstruction technique. Findings: No acute extra-axial or parenchymal hemorrhage is identified. There is no significant intra-axial mass effect, midline shift, or extra-axial fluid collection. The mendez-white differentiation of the major vascular territories is preserved. There is mild third and lateral ventriculomegaly probably due to atrophy. There is paranasal sinuses are mostly aerated, very minimal sphenoid sinus mucosal thickening. Left mastoid air cells are aerated, postoperative changes of right mastoid air cells. No acute calvarial abnormality is identified. Impression: 1. There is mild third and lateral ventriculomegaly although probably due to atrophy. No acute intracranial abnormality is identified by CT. Electronically signed by: Cipriano Turk MD (08/22/2019 11:25 AM) [facility] DICTATED and SIGNED BY: CIPRIANO TURK MD DATE: 08/22/191124 Course & Med Decision Making Course & Med Decision Making Pertinent Labs and Imaging studies reviewed. (See chart for details) []64-year-old female underlying history of developmental delay, hypertension, heart failure, chronic respiratory failure, anxiety, obesity presents to the ER with fever, decreased O2 saturations. Family fever was found this morning to 101.3, patient was given 500 mg of Tylenol. She is well had decreased O2 saturations, her baseline is 3 L. She was 86% on 3 L subsequently improved his 95% on 6 L nasal cannula. Patient complains of pain all over, this is chronic. She as well as cough appreciated on exam. She denies any abdominal pain, nausea, vomiting, headache or visual change. Patient arrived with respiratory distress, hypoxia. Patient provided with DuoNeb, placed upon a Qutkriaff10%, O2 saturations 96% Labs/imaging reviewed, ABG revealed PH7.34, PCO2 67, PO2 58, lactic acid 1.1, white blood cell count 5.0 CTA chest reveals bilateral groundglass opacities more patchy atelectasis/consolidation She provided with aztreonam, vancomycin. Cultures obtained UA reveals evidence of urinary tract infection, culture obtained Discussed admit with Hospitalist (Fauzia) and family at bedside. Dragon Disclaimer Dragon Disclaimer This electronic medical record was generated, in whole or in part, using a voice recognition dictation system. Critical Care Time Critical care time was 40 minutes exclusive of procedures. Departure Departure Referrals: NO PCP (PCP) CAROL ANN GARRIDO MD Aug 22, 2019 09:44
[2019-08-22 09:56] LABS: BASE EXCESS ABG 8 mmol/L (-3-3); HCO3 ABG 36 mmol/L (21-28); PO2 ABG 58 mmHg (65-108); SAT O2 ABG 89 % (92-99)
[2019-08-22 09:58] LABS: CALCIUM 9.6 mg/dL (8.5-10.1); CREATININE 0.5 mg/dL (0.6-1.0); GFR 124.2; POTASSIUM 3.7 mmol/L (3.5-5.1)
[2019-08-22] MEDS ORDERED: IV NORMAL SALINE 1000ML BAG 1,000 ML IV SCH (10:00)
[2019-08-22] MEDS ORDERED: IPRATRPIUM/ALBUTEROL 0.5/2.5MG 3 ML NEBU. NEB ONE (10:00)
[2019-08-22] MEDS ORDERED: VANCOMYCIN 1.5 GM in IV NORMAL SALINE 500ML BAG 500 ML IV ONE (10:00)
[2019-08-22] MEDS ORDERED: AZTREONAM IV Push 2 GM VIAL. IVP ONE (10:00)
[2019-08-22 10:03] LABS: BASO % 0 % (0-3); EOS # 0.1 x10^3/uL (0.0-0.7); EOS % 3 % (0-3); HEMATOCRIT 38.5 % (36.0-47.0); HEMOGLOBIN 12.4 g/dL (12.0-15.5); LYMPH # 1.1 x10^3/uL (1.0-4.8); LYMPH % 23 % (24-48); MEAN CORPUSCULAR HEMOGLOBIN 28 pg (25-35); MEAN CORPUSCULAR HGB CONC 32 g/dL (31-37); MEAN CORPUSCULAR VOLUME 87 fL (79-100); MONO # 0.5 x10^3/uL (0.0-1.1); MONO % 9 % (0-9); NEUT # 3.3 x10^3/uL (1.8-7.7); NEUT % 66 % (31-73); PLATELET COUNT 138 x10^3/uL (140-400); RED BLOOD COUNT 4.42 x10^6/uL (3.50-5.40); RED CELL DISTRIBUTION WIDTH 16.5 % (11.5-14.5)
[2019-08-22 10:03] LABS: PCO2 ABG 67 mmHg (35-46)
[2019-08-22 10:04] LABS: FIO2 ABG 50
[2019-08-22 10:04] LABS: ALBUMIN 2.4 g/dL (3.4-5.0); ALBUMIN/GLOBULIN RATIO 0.5 (1.0-1.7); TOTAL BILIRUBIN 0.2 mg/dL (0.2-1.0); TOTAL PROTEIN 7.4 g/dL (6.4-8.2)
[2019-08-22 10:05] LABS: BILIRUBIN,URINE NEGATIVE (NEG); CLARITY,URINE CLEAR; COLOR,URINE YELLOW; NITRITE,URINE NEGATIVE (NEG); PH,URINE 7.5; PROTEIN,URINE NEGATIVE (NEG-TRACE)
--- NOTE | 2019-08-22 10:24 | RAD ---
CHEST AP ONLY History: Shortness of breath, hypoxia Comparison: July 18, 2019 Findings: Single view of the chest is submitted. There is right upper extremity PICC with the tip near the cavoatrial junction. Cardiac silhouette is somewhat prominent although unchanged. There is no pneumothorax. There is probable very small right pleural effusion as seen previously. There is right hilar fullness as seen previously. There is also fullness in the AP window as seen previously. Mild left base opacity is likely greater. There is degenerative change of bilateral shoulders. Impression: 1. There is again right hilar fullness and in the AP window probably underlying lymphadenopathy as seen previously. There is suspected very small right pleural effusion. There is left base atelectasis/infiltrate greater than previously. Electronically signed by: Garth Santo MD (08/22/2019 10:20 AM) [facility]
[2019-08-22 10:32] LABS: BACTERIA,URINE FEW /HPF (0-FEW); SQUAMOUS EPITHELIAL CELL,UR OCC /LPF; WBC,URINE >40 /HPF (0-4)
[2019-08-22] MEDS ORDERED: IOHEXOL 350 MG/ML 100 ML VIAL. IV ONE (11:00)
[2019-08-22] MEDS ORDERED: CONTRAST GIVEN. MC PRN (11:00)
--- NOTE | 2019-08-22 11:28 | RAD ---
CT HEAD WO CONTRAST History: Altered mental status Comparison: None. Technique: Noncontrast CT imaging was performed of the head. Exposure: One or more of the following individualized dose reduction techniques were utilized for this examination: 1. Automated exposure control 2. Adjustment of the mA and/or kV according to patient size 3. Use of iterative reconstruction technique. Findings: No acute extra-axial or parenchymal hemorrhage is identified. There is no significant intra-axial mass effect, midline shift, or extra-axial fluid collection. The mendez-white differentiation of the major vascular territories is preserved. There is mild third and lateral ventriculomegaly probably due to atrophy. There is paranasal sinuses are mostly aerated, very minimal sphenoid sinus mucosal thickening. Left mastoid air cells are aerated, postoperative changes of right mastoid air cells. No acute calvarial abnormality is identified. Impression: 1. There is mild third and lateral ventriculomegaly although probably due to atrophy. No acute intracranial abnormality is identified by CT. Electronically signed by: Garth Santo MD (08/22/2019 11:25 AM) [facility]
--- NOTE | 2019-08-22 11:36 | RAD ---
CT ANGIOGRAPHY CHEST Indication: Altered mental status. Shortness of breath. . Technique: After intravenous contrast administration, CT imaging was performed of the chest. MIP reconstructions were obtained. Exposure: One or more of the following individualized dose reduction techniques were utilized for this examination: 1. Automated exposure control 2. Adjustment of the mA and/or kV according to patient size 3. Use of iterative reconstruction technique. Findings: Image degradation due to body habitus as well as some possible motion. No evidence of central pulmonary embolism. Suboptimal evaluation of the segmental pulmonary artery branches but no definite embolism. Aorta demonstrates some wall irregularity at the ascending segment likely pulsatility artifact. Ascending aorta measures about 3.3 cm. No gross aortic aneurysm or definite dissection. Heart size is enlarged. Coronary artery calcifications. No definite thyroid mass. No significant axillary lymph node enlargement. Enlarged hilar and mediastinal lymph nodes are identified. To some extent these were also seen on the previous CT chest of 02/03/2019 although that was performed without contrast limiting comparison. No pericardial effusion. No significant pleural effusion. Patchy opacities are identified in both lungs compatible with atelectasis and/or infiltrate, with a probable background of fibrosis. There is a greater degree of groundglass infiltrate with a patchy distribution throughout both lungs. 8mm noncalcified nodule in the left lower lobe, series 3, image 87 may have been present on prior study but had much fainter density at that time. Another subpleural nodule in the left lung base laterally, series 3,image 70 measures 8 mm and appears stable since the previous exam. Narrowing of the mainstem bronchi bilaterally, could be due to mass effect from lymph node enlargement. Scans to the upper abdomen are limited due to technique spleen is enlarged and appears similar to the prior study, measures about 16.5 cm length. Degenerative spondylosis. IMPRESSION: 1. No evidence of pulmonary embolism. Suboptimal visualization of the segmental pulmonary artery branches, however. 2. There are couple of left pulmonary nodules each measuring 8 mm. At least one of these appears stable, but the other appears more dense on today's exam. As per revised Fleischner guidelines, recommend follow-up CT chest in 3-6 months. 3. Development of mild groundglass opacities throughout both lungs, as well as some more patchy atelectasis/infiltrate, suggesting infectious/inflammatory etiology. 4. Hilar or mediastinal lymph node enlargement, to some extent was seen on the previous noncontrast exam of indeterminate etiology. 5. Splenomegaly, stable. Electronically signed by: Sukh Lopez MD (08/22/2019 11:33 AM) [facility]
[2019-08-22] MEDS ORDERED: ACETAMINOPHEN 325 MG TABLET. PO PRN (11:45)
[2019-08-22] MEDS ORDERED: ONDANSETRON PF 4 MG/2 ML VIAL. IV PRN ×2 (11:45→12:30)
[2019-08-22] MEDS: IPRATRPIUM/ALBUTEROL 0.5/2.5MG 3 ML NEBU. NEB SCH ×3 (12:00→20:13)
--- NOTE | 2019-08-22 12:12 | EKG ---
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
[2019-08-22] MEDS ORDERED: fentaNYL PF VIAL 100 MCG/2 ML VIAL IVP PRN (12:30)
[2019-08-22] MEDS ORDERED: POLYETHYLENE GLYCOL 3350 17 GM PACKET. PO PRN (12:30)
[2019-08-22] MEDS ORDERED: DEXTROSE 50% 25 GM / 50ML DISP.SYRIN. IV PRN (12:30)
[2019-08-22] MEDS ORDERED: VANCOMYCIN 500 MG in IV NORMAL SALINE 100ML 100 ML IV ONE (12:30)
[2019-08-22] MEDS ORDERED: traMADol 50 MG TABLET PO PRN ×2 (12:30)
[2019-08-22] MEDS ORDERED: POLYVINYL ALCOHOL 1.4% OPHTH SOLUTION 15ML BOTTLE. OU PRN (12:45)
[2019-08-22 13:00] VITALS: BP 123/66
[2019-08-22] MEDS ORDERED: POTASSIUM CHLORIDE 20 MEQ TABLET.ER. PO SCH (13:00)
[2019-08-22] MEDS: CETIRIZINE HCL 10 MG TABLET. PO SCH (13:00)
[2019-08-22] MEDS: ALBUTEROL SULFATE 2.5 MG/3 ML NEBU. NEB SCH ×2 (13:00→15:41)
[2019-08-22] MEDS ORDERED: amLODIPine BESYLATE 5 MG TABLET PO SCH (13:00)
[2019-08-22] MEDS ORDERED: BUDESONIDE 0.5 MG/2 ML NEBU. NEB SCH (13:00)
[2019-08-22] MEDS ORDERED: INSULIN LISPRO 300 UNITS/3 ML VIAL. SQ SCH (13:00)
[2019-08-22] MEDS: LEVOTHYROXINE 175 MCG TABLET PO SCH (13:00)
[2019-08-22] MEDS ORDERED: PANTOPRAZOLE 40 MG TABLET.DR. PO SCH (13:00)
[2019-08-22] MEDS: DIVALPROEX EXTENDED RELEASE 500 MG TAB.ER.24H. PO SCH (13:00)
[2019-08-22] MEDS ORDERED: FUROSEMIDE 20 MG TABLET PO SCH (13:00)
[2019-08-22] MEDS: LACTOBACILLUS RHAMNOSUS GG 1 CAPSULE. PO SCH ×2 (13:00→20:48)
[2019-08-22] MEDS: DOCUSATE SODIUM 100 MG CAPSULE. PO SCH ×2 (13:00→20:49)
[2019-08-22] MEDS: ACETAMINOPHEN 500 MG TABLET PO SCH (13:00)
--- NOTE | 2019-08-22 13:07 | PHYS DOC ---
Past Medical History Past Medical History: Anxiety, Arthritis, Bipolar, CHF, Constipation, COPD, Depression, Diabetes-Type II, GERD, High Cholesterol, Hypertension, Hypothyroid, Pneumonia, UTI Additional Past Medical Histor: BIPOLAR, MANIAC, AJ, OA, HOME OXYGEN 2 LNC Past Surgical History: No Surgical History Alcohol Use: None Drug Use: None Adult General Chief Complaint Chief Complaint: SHORTNESS OF BREATH HPI HPI Patient is a 64 year old [f__sex] who presents with [] Review of Systems Review of Systems Constitutional: Denies fever or chills [] Eyes: Denies change in visual acuity, redness, or eye pain [] HENT: Denies nasal congestion or sore throat [] Respiratory: Denies cough or shortness of breath [] Cardiovascular: No additional information not addressed in HPI [] GI: Denies abdominal pain, nausea, vomiting, bloody stools or diarrhea [] : Denies dysuria or hematuria [] Musculoskeletal: Denies back pain or joint pain [] Integument: Denies rash or skin lesions [] Neurologic: Denies headache, focal weakness or sensory changes [] Endocrine: Denies polyuria or polydipsia [] All other systems were reviewed and found to be within normal limits, except as documented in this note. Current Medications Current Medications Current Medications Medications (Trade) Dose Ordered Sig/Holden Start Time Stop Time Status Last Admin Dose Admin Albuterol/ Ipratropium (Duoneb) 3 ml 1X ONCE 08/22/19 10:00 08/22/19 10:01 DC 08/22/19 09:51 3 ML Aztreonam (Azactam) 2 gm 1X ONCE 08/22/19 10:00 08/22/19 10:01 DC 08/22/19 10:07 2 GM Info (CONTRAST GIVEN -- Rx MONITORING) 1 each PRN DAILY PRN 08/22/19 11:00 08/24/19 10:59 Iohexol (Omnipaque 350 Mg/ml) 90 ml 1X ONCE 08/22/19 11:00 08/22/19 11:01 DC 08/22/19 11:13 90 ML Sodium Chloride 1,000 ml @ 1,860 mls/hr Q33M 08/22/19 10:00 08/22/19 11:00 DC 08/22/19 09:54 1,860 MLS/HR Vancomycin HCl (Vanco Per Pharmacy) 1 each PRN DAILY PRN 08/22/19 09:30 Vancomycin HCl 1.5 gm/Sodium Chloride 500 ml @ 250 mls/hr 1X ONCE 08/22/19 10:00 08/22/19 11:59 DC 08/22/19 10:10 250 MLS/HR Allergies Allergies Allergies Coded Allergies Type Severity Reaction Last Updated Verified Cctlxcf-Xkh-Tzv Reductase Inhibitor Allergy Intermediate 02/02/19 Yes azithromycin Allergy Intermediate 02/02/19 Yes budesonide Allergy Intermediate 02/02/19 Yes ceftriaxone Allergy Intermediate 02/02/19 Yes ciprofloxacin Allergy Intermediate 02/02/19 Yes clindamycin Allergy Intermediate 02/02/19 Yes formoterol Allergy Intermediate 02/02/19 Yes latex Allergy Intermediate 02/02/19 Yes lorazepam Allergy Intermediate 02/02/19 Yes morphine Allergy Intermediate 02/02/19 Yes mupirocin Allergy Intermediate 02/02/19 Yes sulfur dioxide Allergy Intermediate 02/02/19 Yes Physical Exam Physical Exam Constitutional: Well developed, well nourished, no acute distress, non-toxic appearance. [] HENT: Normocephalic, atraumatic, bilateral external ears normal, oropharynx moist, no oral exudates, nose normal. [] Eyes: PERRLA, EOMI, conjunctiva normal, no discharge. [] Neck: Normal range of motion, no tenderness, supple, no stridor. [] Cardiovascular:Heart rate regular rhythm, no murmur [] Lungs & Thorax: Bilateral breath sounds clear to auscultation [] Abdomen: Bowel sounds normal, soft, no tenderness, no masses, no pulsatile masses. [] Skin: Warm, dry, no erythema, no rash. [] Back: No tenderness, no CVA tenderness. [] Extremities: No tenderness, no cyanosis, no clubbing, ROM intact, no edema. [] Neurologic: Alert and oriented X 3, normal motor function, normal sensory function, no focal deficits noted. [] Psychologic: Affect normal, judgement normal, mood normal. [] Current Patient Data Vital Signs Vital Signs Date Time Temp Pulse Resp B/P (MAP) Pulse Ox O2 Delivery O2 Flow Rate FiO2 08/22/19 11:08 81 20 139/68 (91) 96 Venturi Mask 15.0 08/22/19 09:18 100.9 100.9 Lab Values Laboratory Tests Test 08/22/19 09:25 08/22/19 09:38 White Blood Count 5.0 x10^3/uL (4.0-11.0) Red Blood Count 4.42 x10^6/uL (3.50-5.40) Hemoglobin 12.4 g/dL (12.0-15.5) Hematocrit 38.5 % (36.0-47.0) Mean Corpuscular Volume 87 fL (79-100) Mean Corpuscular Hemoglobin 28 pg (25-35) Mean Corpuscular Hemoglobin Concent 32 g/dL (31-37) Red Cell Distribution Width 16.5 % (11.5-14.5) H Platelet Count 138 x10^3/uL (140-400) L Neutrophils (%) (Auto) 66 % (31-73) Lymphocytes (%) (Auto) 23 % (24-48) L Monocytes (%) (Auto) 9 % (0-9) Eosinophils (%) (Auto) 3 % (0-3) Basophils (%) (Auto) 0 % (0-3) Neutrophils # (Auto) 3.3 x10^3/uL (1.8-7.7) Lymphocytes # (Auto) 1.1 x10^3/uL (1.0-4.8) Monocytes # (Auto) 0.5 x10^3/uL (0.0-1.1) Eosinophils # (Auto) 0.1 x10^3/uL (0.0-0.7) Basophils # (Auto) 0.0 x10^3/uL (0.0-0.2) Sodium Level 145 mmol/L (136-145) Potassium Level 3.7 mmol/L (3.5-5.1) Chloride Level 104 mmol/L (98-107) Carbon Dioxide Level 36 mmol/L (21-32) H Anion Gap 5 (6-14) L Blood Urea Nitrogen 11 mg/dL (7-20) Creatinine 0.5 mg/dL (0.6-1.0) L Estimated GFR (Cockcroft-Gault) 124.2 BUN/Creatinine Ratio 22 (6-20) H Glucose Level 144 mg/dL (70-99) H Lactic Acid Level 1.1 mmol/L (0.4-2.0) Calcium Level 9.6 mg/dL (8.5-10.1) Total Bilirubin 0.2 mg/dL (0.2-1.0) Aspartate Amino Transferase (AST) 21 U/L (15-37) Alanine Aminotransferase (ALT) 8 U/L (14-59) L Alkaline Phosphatase 67 U/L (46-116) KD-Ntu-N-Type Natriuretic Peptide 1158 pg/mL (0-124) H Total Protein 7.4 g/dL (6.4-8.2) Albumin 2.4 g/dL (3.4-5.0) L Albumin/Globulin Ratio 0.5 (1.0-1.7) L Procalcitonin < 0.10 ng/mL (0.00-0.10) Urine Collection Type Unknown Urine Color Yellow Urine Clarity Clear Urine pH 7.5 Urine Specific Darby 1.010 Urine Protein Negative mg/dL (NEG-TRACE) Urine Glucose (UA) Negative mg/dL (NEG) Urine Ketones (Stick) Negative mg/dL (NEG) Urine Blood Negative (NEG) Urine Nitrite Negative (NEG) Urine Bilirubin Negative (NEG) Urine Urobilinogen Dipstick 1.0 mg/dL (0.2 mg/dL) Urine Leukocyte Esterase Large (NEG) Urine RBC 3-5 /HPF (0-2) Urine WBC >40 /HPF (0-4) Urine Squamous Epithelial Cells Occ /LPF Urine Bacteria Few /HPF (0-FEW) O2 Saturation 89 % (92-99) L Arterial Blood pH 7.35 (7.35-7.45) Arterial Blood pCO2 at Patient Temp 67 mmHg (35-46) *H Arterial Blood pO2 at Patient Temp 58 mmHg (65-108) L Arterial Blood HCO3 36 mmol/L (21-28) H Arterial Blood Base Excess 8 mmol/L (-3-3) H FiO2 50 Laboratory Tests 08/22/19 09:25 Laboratory Tests 08/22/19 09:25 EKG EKG [] Radiology/Procedures Radiology/Procedures [] Course & Med Decision Making Course & Med Decision Making Pertinent Labs and Imaging studies reviewed. (See chart for details) [] Dragon Disclaimer Dragon Disclaimer This electronic medical record was generated, in whole or in part, using a voice recognition dictation system. Departure Departure Impression: Primary Impression: HCAP (healthcare-associated pneumonia) Additional Impressions: Hypoxia UTI (urinary tract infection) Disposition: 09 ADMITTED INPATIENT Admitting Physician: ELVIRA Condition: GUARDED Referrals: JASMYNE DAVID MD (PCP) Problem Qualifiers Additional Impressions: UTI (urinary tract infection) Urinary tract infection type: site unspecified Hematuria presence: without hematuria Qualified Codes: N39.0 - Urinary tract infection, site not specified CAROL ANN GARRIDO MD Aug 22, 2019 13:07
--- NOTE | 2019-08-22 13:36 | PDOC1 ---
History and Physical Date of Admission Date of Admission DATE: 08/22/19 TIME: 13:26 Identification/Chief Complaint Chief Complaint SOa, low sats at SNU Source Source: Caregiver, Chart review History of Present Illness History of Present Illness She is not the best historian, but i know her from an February 2019 admission for the same, LAst apir2018: BIlateral infiltrates-pneumonia SNU resident Bedbound because of acute on chronic lymphedema - neg DVT Sepsis present on admission, elevated lactate 3.7, WBC 30 UTI in an SNU resident-, complicated UTI Mixed hypercapnic hypoxic respiratory failure - BIPAP AJ on CPAP at SNU Flu negative Fevers Obesity, BMI 50 DNR TODAY< [facility], hypoxic 70s, sats came up to 96% on NRB. She has copd, CHF, LAST february we had to give her 40 IV BID lasix then sent her home on 40 PO dose, SHe came from snu with a 20 mg PO lasix on file and zosyn and micafungin as home meds with a MIDLINE from snu, likelyw as getting those for reported leg cellu litis, SHe has a lot of allergies listed above, SHe somewhat remembers me though she is not the best historian, BNP 11K, CTA, no PE, more pronounced lung nodules that was there before and some ground glass that i think are more of INTERSTITIAL EDEMA - I will give her lasix, cont empiric abx and consult ID (she was also on IV abx CURBER). HEr legs dont look bad infection -byrne, but she has acute on chronic pitting edema, She denies CP, Past Medical History Cardiovascular: HTN Pulmonary: COPD, Other GI: Constipation, GERD Heme/Onc: No pertinent hx Hepatobiliary: No pertinent hx Psych: Anxiety, Bipolar, Depression, Psychosis Rheumatologic: No pertinent hx Infectious disease: No pertinent hx Renal/: No pertinent hx Endocrine: Diabetes Past Surgical History Past Surgical History: Other Family History Family History: Family History Unknown Social History Smoke: No ALCOHOL: none Drugs: None Current Problem List Problem List Problems Medical Problems: (1) HCAP (healthcare-associated pneumonia) Status: Acute (2) Hypoxia Status: Acute (3) UTI (urinary tract infection) Status: Acute Current Medications Current Medications Current Medications Aztreonam (Azactam) 2 gm 1X ONCE IVP Last administered on 08/22/19at 10:07; Start 08/22/19 at 10:00; Stop 08/22/19 at 10:01; Status DC Sodium Chloride 1,000 ml @ 1,860 mls/hr Q33M IV Last administered on 08/22/19at 09:54; Start 08/22/19 at 10:00; Stop 08/22/19 at 11:00; Status DC Vancomycin HCl (Vanco Per Pharmacy) 1 each PRN DAILY PRN MC SEE COMMENTS; Start 08/22/19 at 09:30 Albuterol/ Ipratropium (Duoneb) 3 ml 1X ONCE NEB Last administered on 08/22/19at 09:51; Start 08/22/19 at 10:00; Stop 08/22/19 at 10:01; Status DC Vancomycin HCl 1.5 gm/Sodium Chloride 500 ml @ 250 mls/hr 1X ONCE IV Last administered on 08/22/19at 10:10; Start 08/22/19 at 10:00; Stop 08/22/19 at 11:59; Status DC Iohexol (Omnipaque 350 Mg/ml) 90 ml 1X ONCE IV Last administered on 08/22/19at 11:13; Start 08/22/19 at 11:00; Stop 08/22/19 at 11:01; Status DC Info (CONTRAST GIVEN -- Rx MONITORING) 1 each PRN DAILY PRN MC SEE COMMENTS; Start 08/22/19 at 11:00; Stop 08/24/19 at 10:59 Ondansetron HCl (Zofran) 4 mg PRN Q8HRS PRN IV NAUSEA/VOMITING; Start 08/22/19 at 11:45; Stop 08/22/19 at 12:29; Status DC Acetaminophen (Tylenol) 650 mg PRN Q4HRS PRN PO FEVER; Start 08/22/19 at 11:45; Stop 08/23/19 at 11:44 Albuterol/ Ipratropium (Duoneb) 3 ml RTQID NEB ; Start 08/22/19 at 12:00; Stop 08/23/19 at 11:59 Vancomycin HCl 500 mg/Sodium Chloride 100 ml @ 100 mls/hr 1X ONCE IV ; Start 08/22/19 at 12:30; Stop 08/22/19 at 13:29 Ondansetron HCl (Zofran) 4 mg PRN Q6HRS PRN IV NAUSEA/VOMITING; Start 08/22/19 at 12:30 Meropenem 1 gm/ Sodium Chloride 100 ml @ 200 mls/hr Q8HRS IV ; Start 08/22/19 at 14:00 Acetaminophen (Tylenol) 1,000 mg DAILY PO ; Start 08/22/19 at 13:00 Albuterol Sulfate (Ventolin Neb Soln) 2.5 mg RTQID NEB ; Start 08/22/19 at 13:00 Amlodipine Besylate (Norvasc) 5 mg DAILY PO ; Start 08/22/19 at 13:00 Budesonide (Pulmicort) 0.5 mg RTBID NEB ; Start 08/22/19 at 13:00 Vitamin D (Vitamin D3) 5,000 unit WEEKLY PO ; Start 08/29/19 at 09:00 Divalproex Sodium (Depakote Er) 500 mg DAILY PO ; Start 08/22/19 at 13:00 Divalproex Sodium (Depakote Er) 1,000 mg QHS PO ; Start 08/22/19 at 21:00 Docusate Sodium (Colace) 100 mg BID PO ; Start 08/22/19 at 13:00 Enoxaparin Sodium (Lovenox 60mg Syringe) 60 mg Q12HR SQ ; Start 08/22/19 at 21:00 Furosemide (Lasix) 20 mg DAILY PO ; Start 08/22/19 at 13:00 Insulin Human Lispro (HumaLOG) TIDWMEALS SQ ; Start 08/22/19 at 13:00 Lactobacillus Rhamnosus (Culturelle) 1 cap BID PO ; Start 08/22/19 at 13:00 Levothyroxine Sodium (Synthroid) 175 mcg DAILY06 PO ; Start 08/22/19 at 13:00 Pilocarpine HCl (Salagen) 10 mg TID PO ; Start 08/22/19 at 14:00 Polyethylene Glycol (miraLAX PACKET) 17 gm DAILY PRN PO CONSTIPATION; Start 08/22/19 at 12:30 Pregabalin (Lyrica) 75 mg TID PO ; Start 08/22/19 at 14:00 Risperidone (RisperDAL) 1 mg QHS PO ; Start 08/22/19 at 21:00 Tramadol HCl (Ultram) 75 mg PRN TID PRN PO PAIN; Start 08/22/19 at 12:30; Status Cancel Trazodone HCl (Desyrel) 50 mg QHS PO ; Start 08/22/19 at 21:00 Artificial Tears (Artificial Tears) 1 drop PRN Q15MIN PRN OU DRY EYE; Start 08/22/19 at 12:45 Non-Formulary Medication (Lifitegrast (Xiidra)) 1 each BID OP ; Start 08/22/19 at 21:00; Status UNV Cetirizine HCl (ZyrTEC) 10 mg DAILY PO ; Start 08/22/19 at 13:00 Meclizine HCl (Antivert) 25 mg TID PO ; Start 08/22/19 at 14:00 Multi-Ingredient Ointment (Analgesic [place]) 1 kashif TID TP ; Start 08/22/19 at 14:00 Pantoprazole Sodium (Protonix) 40 mg DAILYAC PO ; Start 08/22/19 at 13:00 Potassium Chloride (Klor-Con) 20 meq DAILYWBKFT PO ; Start 08/22/19 at 13:00 Fentanyl Citrate (Fentanyl 2ml Vial) 50 mcg PRN Q2HR PRN IVP PAIN; Start 08/22/19 at 12:30 Tramadol HCl (Ultram) 50 mg PRN Q6HRS PRN PO PAIN; Start 08/22/19 at 12:30 Insulin Human Lispro (HumaLOG) 0-9 UNITS TIDWMEALS SQ ; Start 08/22/19 at 17:00 Dextrose (Dextrose 50%-Water Syringe) 12.5 gm PRN Q15MIN PRN IV SEE COMMENTS; Start 08/22/19 at 12:30 Active Scripts Active Humalog (Insulin Lispro) 100 Unit/1 Ml Insuln.pen 0 Units SQ TIDWMEALS 14 Days Culturelle (Lactobacillus Rhamnosus Gg) 1 Each Cap.sprink 1 Cap PO BID 30 Days [Acetazolamide Sodium] 500 MG Vial 500 Mg IVP DAILY 14 Days Enoxaparin Sodium 60 Mg/0.6 Ml Disp.syrin 60 Mg SQ Q12HR 28 Days Mycamine (Micafungin Sodium) 100 Mg Vial 100 Mg IV Q 24 HRS 14 Days Zosyn 4.5 Gm Pre-Mix Bag (Mircgvwpezpo-Dusj-Lntcocbu,Iso) 4.5 Gm/100 Ml Froz.piggy 4.5 Gm IV Q 6HRS 14 Days Reported Xiidra (Lifitegrast) 1 Each Droperette 1 Each OP BID Vitamin D (Cholecalciferol (Vitamin D3)) 5,000 Unit Capsule 5,000 Unit PO WEEKLY Tylenol Extra Strength (Acetaminophen) 500 Mg Tablet 2 Mg PO DAILY Trazodone Hcl 50 Mg Tablet 1 Tab PO QHS Tramadol Hcl 50 Mg Tablet 75 Mg PO TID PRN Risperdal (Risperidone) 1 Mg Tablet 1 Mg PO QHS Proventil Hfa Inhaler (Albuterol Sulfate) 6.7 Gm Hfa.aer.ad 1 Puff IH PRN Q4HRS PRN Protonix (Pantoprazole Sodium) 20 Mg Tablet.dr 40 Mg PO DAILY Potassium Chloride 20 Meq Tablet.er 20 Meq PO DAILY Miralax (Polyethylene Glycol 3350) 17 Gm Powd.pack 1 Packet PO DAILY PRN Pilocarpine Hcl 5 Mg Tablet 10 Mg PO TID Meclizine Hcl 25 Mg Tablet 1 Tab PO TID Lyrica (Pregabalin) 75 Mg Capsule 1 Cap PO TID Loratadine 10 Mg Tablet 1 Tab PO DAILY Levothyroxine Sodium 175 Mcg Tablet 1 Tab PO DAILY Lasix (Furosemide) 20 Mg Tablet 1 Tab PO DAILY Divalproex Sodium Er (Divalproex Sodium) 500 Mg Tab.er.24h 2 Tab PO QHS Divalproex Sodium Er (Divalproex Sodium) 500 Mg Tab.er.24h 1 Tab PO DAILY Colace (Docusate Sodium) 100 Mg Capsule 1 Cap PO BID Budesonide 0.5 Mg/2 Ml Ampul.neb 1 Vial NEB BID Biofreeze (Menthol) 118 Ml Gel..ml. 118 Ml TP TID Artificial Tears Eye Drops (Dextran 70/Hypromellose) 15 Ml Drops 1 Drop EACHEYE PRN PRN Amlodipine Besylate 5 Mg Tablet 5 Mg PO DAILY Albuterol Sulfate Neb Soln (Albuterol Sulfate) 2.5 Mg/3 Ml Vial.neb 1 Vial NEB PRN Q4HRS Allergies Allergies: Coded Allergies: Jqlninb-Ret-Ieq Reductase Inhibitor (Verified Allergy, Intermediate, 02/02/19) azithromycin (Verified Allergy, Intermediate, 02/02/19) budesonide (Verified Allergy, Intermediate, 02/02/19) ceftriaxone (Verified Allergy, Intermediate, 02/02/19) ciprofloxacin (Verified Allergy, Intermediate, 02/02/19) clindamycin (Verified Allergy, Intermediate, 02/02/19) formoterol (Verified Allergy, Intermediate, 02/02/19) latex (Verified Allergy, Intermediate, 02/02/19) lorazepam (Verified Allergy, Intermediate, 02/02/19) morphine (Verified Allergy, Intermediate, 02/02/19) mupirocin (Verified Allergy, Intermediate, 02/02/19) sulfur dioxide (Verified Allergy, Intermediate, 02/02/19) ROS Review of System weak soa, clear cough, no cp, no fevers, no diarrhea, no abd pain, all else 14 pt neg -easy fatigability Physical Exam General: mild distress, Other (NRB mask) HEENT: Atraumatic, PERRLA Lungs: Normal air movement, Other (crackles, no wheezing, dec BS) Heart: S1S2, RRR, no thrills, no rubs, no gallops, no murmurs Breasts: Normal Abdomen: Normal bowel sounds, Soft, No tenderness, No hepatosplenomegaly, No masses, Other (obes,e, flabby, non tender NABS) Extremities: Normal pulses, Other (post inflamm hyperpigmentation, pitting edema plus 2-3) Skin: No rashes Neuro: Normal gait, Normal speech, Strength at 5/5 X4 ext, Normal tone, S ensation intact, Cranial nerves 3-12 NL, Reflexes 2+, Other (slow to speech - her baseline) Vitals Vitals Vital Signs Date Time Temp Pulse Resp B/P (MAP) Pulse Ox O2 Delivery O2 Flow Rate FiO2 08/22/19 12:22 76 16 144/81 (102) 99 Venturi Mask 15.0 08/22/19 09:18 100.9 100.9 Labs Labs Laboratory Tests Test 08/22/19 09:25 08/22/19 09:38 White Blood Count 5.0 x10^3/uL (4.0-11.0) Red Blood Count 4.42 x10^6/uL (3.50-5.40) Hemoglobin 12.4 g/dL (12.0-15.5) Hematocrit 38.5 % (36.0-47.0) Mean Corpuscular Volume 87 fL (79-100) Mean Corpuscular Hemoglobin 28 pg (25-35) Mean Corpuscular Hemoglobin Concent 32 g/dL (31-37) Red Cell Distribution Width 16.5 % (11.5-14.5) Platelet Count 138 x10^3/uL (140-400) Neutrophils (%) (Auto) 66 % (31-73) Lymphocytes (%) (Auto) 23 % (24-48) Monocytes (%) (Auto) 9 % (0-9) Eosinophils (%) (Auto) 3 % (0-3) Basophils (%) (Auto) 0 % (0-3) Neutrophils # (Auto) 3.3 x10^3/uL (1.8-7.7) Lymphocytes # (Auto) 1.1 x10^3/uL (1.0-4.8) Monocytes # (Auto) 0.5 x10^3/uL (0.0-1.1) Eosinophils # (Auto) 0.1 x10^3/uL (0.0-0.7) Basophils # (Auto) 0.0 x10^3/uL (0.0-0.2) Sodium Level 145 mmol/L (136-145) Potassium Level 3.7 mmol/L (3.5-5.1) Chloride Level 104 mmol/L (98-107) Carbon Dioxide Level 36 mmol/L (21-32) Anion Gap 5 (6-14) Blood Urea Nitrogen 11 mg/dL (7-20) Creatinine 0.5 mg/dL (0.6-1.0) Estimated GFR (Cockcroft-Gault) 124.2 BUN/Creatinine Ratio 22 (6-20) Glucose Level 144 mg/dL (70-99) Lactic Acid Level 1.1 mmol/L (0.4-2.0) Calcium Level 9.6 mg/dL (8.5-10.1) Total Bilirubin 0.2 mg/dL (0.2-1.0) Aspartate Amino Transf (AST/SGOT) 21 U/L (15-37) Alanine Aminotransferase (ALT/SGPT) 8 U/L (14-59) Alkaline Phosphatase 67 U/L (46-116) GS-Flh-K-Type Natriuretic Peptide 1158 pg/mL (0-124) Total Protein 7.4 g/dL (6.4-8.2) Albumin 2.4 g/dL (3.4-5.0) Albumin/Globulin Ratio 0.5 (1.0-1.7) Procalcitonin < 0.10 ng/mL (0.00-0.10) Urine Collection Type Unknown Urine Color Yellow Urine Clarity Clear Urine pH 7.5 Urine Specific [place] 1.010 Urine Protein Negative mg/dL (NEG-TRACE) Urine Glucose (UA) Negative mg/dL (NEG) Urine Ketones (Stick) Negative mg/dL (NEG) Urine Blood Negative (NEG) Urine Nitrite Negative (NEG) Urine Bilirubin Negative (NEG) Urine Urobilinogen Dipstick 1.0 mg/dL (0.2 mg/dL) Urine Leukocyte Esterase Large (NEG) Urine RBC 3-5 /HPF (0-2) Urine WBC >40 /HPF (0-4) Urine Squamous Epithelial Cells Occ /LPF Urine Bacteria Few /HPF (0-FEW) O2 Saturation 89 % (92-99) Arterial Blood pH 7.35 (7.35-7.45) Arterial Blood pCO2 at Patient Temp 67 mmHg (35-46) Arterial Blood pO2 at Patient Temp 58 mmHg (65-108) Arterial Blood HCO3 36 mmol/L (21-28) Arterial Blood Base Excess 8 mmol/L (-3-3) FiO2 50 Laboratory Tests Test 08/22/19 09:25 08/22/19 09:38 White Blood Count 5.0 x10^3/uL (4.0-11.0) Red Blood Count 4.42 x10^6/uL (3.50-5.40) Hemoglobin 12.4 g/dL (12.0-15.5) Hematocrit 38.5 % (36.0-47.0) Mean Corpuscular Volume 87 fL (79-100) Mean Corpuscular Hemoglobin 28 pg (25-35) Mean Corpuscular Hemoglobin Concent 32 g/dL (31-37) Red Cell Distribution Width 16.5 % (11.5-14.5) Platelet Count 138 x10^3/uL (140-400) Neutrophils (%) (Auto) 66 % (31-73) Lymphocytes (%) (Auto) 23 % (24-48) Monocytes (%) (Auto) 9 % (0-9) Eosinophils (%) (Auto) 3 % (0-3) Basophils (%) (Auto) 0 % (0-3) Neutrophils # (Auto) 3.3 x10^3/uL (1.8-7.7) Lymphocytes # (Auto) 1.1 x10^3/uL (1.0-4.8) Monocytes # (Auto) 0.5 x10^3/uL (0.0-1.1) Eosinophils # (Auto) 0.1 x10^3/uL (0.0-0.7) Basophils # (Auto) 0.0 x10^3/uL (0.0-0.2) Sodium Level 145 mmol/L (136-145) Potassium Level 3.7 mmol/L (3.5-5.1) Chloride Level 104 mmol/L (98-107) Carbon Dioxide Level 36 mmol/L (21-32) Anion Gap 5 (6-14) Blood Urea Nitrogen 11 mg/dL (7-20) Creatinine 0.5 mg/dL (0.6-1.0) Estimated GFR (Cockcroft-Gault) 124.2 BUN/Creatinine Ratio 22 (6-20) Glucose Level 144 mg/dL (70-99) Lactic Acid Level 1.1 mmol/L (0.4-2.0) Calcium Level 9.6 mg/dL (8.5-10.1) Total Bilirubin 0.2 mg/dL (0.2-1.0) Aspartate Amino Transf (AST/SGOT) 21 U/L (15-37) Alanine Aminotransferase (ALT/SGPT) 8 U/L (14-59) Alkaline Phosphatase 67 U/L (46-116) WM-Fhg-C-Type Natriuretic Peptide 1158 pg/mL (0-124) Total Protein 7.4 g/dL (6.4-8.2) Albumin 2.4 g/dL (3.4-5.0) Albumin/Globulin Ratio 0.5 (1.0-1.7) Procalcitonin < 0.10 ng/mL (0.00-0.10) Urine Collection Type Unknown Urine Color Yellow Urine Clarity Clear Urine pH 7.5 Urine Specific [place] 1.010 Urine Protein Negative mg/dL (NEG-TRACE) Urine Glucose (UA) Negative mg/dL (NEG) Urine Ketones (Stick) Negative mg/dL (NEG) Urine Blood Negative (NEG) Urine Nitrite Negative (NEG) Urine Bilirubin Negative (NEG) Urine Urobilinogen Dipstick 1.0 mg/dL (0.2 mg/dL) Urine Leukocyte Esterase Large (NEG) Urine RBC 3-5 /HPF (0-2) Urine WBC >40 /HPF (0-4) Urine Squamous Epithelial Cells Occ /LPF Urine Bacteria Few /HPF (0-FEW) O2 Saturation 89 % (92-99) Arterial Blood pH 7.35 (7.35-7.45) Arterial Blood pCO2 at Patient Temp 67 mmHg (35-46) Arterial Blood pO2 at Patient Temp 58 mmHg (65-108) Arterial Blood HCO3 36 mmol/L (21-28) Arterial Blood Base Excess 8 mmol/L (-3-3) FiO2 50 VTE Prophylaxis Ordered VTE Prophylaxis Devices: Yes VTE Pharmacological Prophylaxi: Yes Assessment/Plan Assessment/Plan HYpoxic respi failure, favor CHF as evidenced by interstitial edema CTA No PE Biateral ground glass, sub VM pulm lung nodule Known hx COPD, AJ has been on BIPAP before -HCAP empiric started, multiple abx allergies Recent leg cellulitis on micafungin and zosyn at SNU Indwelling MIDLINE from SNU SNU resident Bedbound because of acute on chronic lymphedema - Sepsis present on admission, elevated lactate UTI in an SNU resident-, complicated UTI Mixed hypercapnic hypoxic respiratory failure - BIPAP if needed - consult pulmo AJ on CPAP at SNU Obesity, BMI 50 DNR PLAn: LAsix 60 now then IV BID push CARds expertise Empiric abx HCAp covergae was started Pulmo likewise consulted DNR NEBs other supprotive meds I have reconciled medfs I consulted ID too be cof abx (on micafungina nd zosyn CURBER) and now merem and vanc ADA diet, SSI HAs been on BIPAP before for the same - CO 2 high 67 - might need BIPAP - RT pls Seen at 209, dw [place] I held off steroids IV for now STart Kcl 40 po qdaily since im ditayaing and K is 3.7 on admit VADIM PAUL MD Aug 22, 2019 13:36
[2019-08-22] MEDS ORDERED: MECLIZINE HCL 12.5 MG TABLET. PO SCH (14:00)
[2019-08-22] MEDS: PREGABALIN 75 MG CAPSULE PO SCH ×2 (14:00→20:50)
[2019-08-22] MEDS: PILOCARPINE 5 MG TABLET. PO SCH ×2 (14:00→20:49)
[2019-08-22] MEDS ORDERED: FUROSEMIDE 100 MG/10 ML VIAL. IVP ONE (14:00)
[2019-08-22] MEDS: METHYL SALICYLATE/MENTHOL TOPICAL OINTMENT 57GM TUBE. TP SCH ×3 (14:00→20:56)
[2019-08-22 15:14] VITALS: BP 110/56
[2019-08-22] MEDS ORDERED: RIVA20TA2 PO (15:43)
[2019-08-22] MEDS ORDERED: TRAM100T30 PO (15:43)
[2019-08-22] MEDS ORDERED: BUSP5TAB PO (15:43)
[2019-08-22] MEDS ORDERED: AMLO10TA8 PO (15:43)
[2019-08-22] MEDS ORDERED: DIME92CR TP (15:43)
[2019-08-22] MEDS ORDERED: DIVA500T2 PO (15:46)
[2019-08-22] MEDS: MEROPENEM 1 GM in IV NORMAL SALINE 100ML 100 ML IV SCH ×2 (16:22→21:38)
[2019-08-22] MEDS: INSULIN LISPRO 300 UNITS/3 ML VIAL. SQ SCH (17:00)
--- NOTE | 2019-08-22 17:02 | NUR ---
Pharmacy Vancomycin Dosing Note S:Consulted to monitor and dose vancomycin started 08/22/19. O:ROGE RAM is a 64 year old F with HAP. Height: 5 feet, 7 inches Weight: 138.9 kg Dosing Weight: Actual Other Antibiotics: MERREM 1G IV Q8HRS LABS: Last BUN: 11 Last Creatinine: 0.5 Creatinine Clearance: > 120 mL/min Last WBC: 5 Last Procalcitonin: < 0.1 Tmax (past 24 hours): 100.9 Microbiology: BLOOD AND URINE CX PENDING I/O: 2360/450 A: Patient requires vancomycin for HAP, goal trough 15-20 mcg/ml. Her SCr is 0.5 with an eCrCL of > 120 ml/min. Initiate the following: P: 1. Initiate Vancomycin 2000 mg IV x 1 dose, then 1500 mg IV q8h 2. Follow up Trough level on 08/23/19 at 1530 3. Pharmacy will continue to monitor, follow and adjust therapy as needed. KRYSTIAN MURRAY [facility], 08/22/19 [id number]
[2019-08-22] MEDS: traMADol 50 MG TABLET PO SCH ×3 (18:00→23:38)
[2019-08-22] MEDS: RIVAROXABAN 10 MG TABLET. PO SCH (18:59)
[2019-08-22 19:10] VITALS: BP 155/77
[2019-08-22] MEDS: busPIRone 5 MG TABLET. PO SCH (20:48)
[2019-08-22] MEDS: risperiDONE 1 MG TABLET. PO SCH (20:49)
[2019-08-22] MEDS: DIVALPROEX EXTENDED RELEASE 250 MG TAB.ER.24H. PO SCH (20:50)
[2019-08-22] MEDS: traZODone 50 MG TABLET. PO SCH (20:50)
[2019-08-22] MEDS ORDERED: DIVALPROEX EXTENDED RELEASE 500 MG TAB.ER.24H. PO SCH (21:00)
[2019-08-22] MEDS ORDERED: FLU VAX QS 2019-20 (36MOS+)/PF 0.5 ML SYRINGE. VAX IM ONE (21:00)
[2019-08-22] MEDS ORDERED: NON FORMULARY ITEM (Lifitegrast (Xiidra) 1 EACH) OP SCH (21:00)
--- NOTE | 2019-08-22 21:03 | NUR ---
Pt. refusing to take flu vaccine tonight. States she will take in am.
[2019-08-22 23:10] VITALS: BP 137/73
[2019-08-23 02:45] VITALS: BP 169/89
[2019-08-23 04:03] LABS: BASO % 1 % (0-3); EOS # 0.2 x10^3/uL (0.0-0.7); EOS % 7 % (0-3); HEMATOCRIT 36.8 % (36.0-47.0); HEMOGLOBIN 12.1 g/dL (12.0-15.5); LYMPH # 0.7 x10^3/uL (1.0-4.8); LYMPH % 21 % (24-48); MEAN CORPUSCULAR HEMOGLOBIN 28 pg (25-35); MEAN CORPUSCULAR HGB CONC 33 g/dL (31-37); MEAN CORPUSCULAR VOLUME 87 fL (79-100); MONO # 0.4 x10^3/uL (0.0-1.1); MONO % 13 % (0-9); NEUT # 1.9 x10^3/uL (1.8-7.7); NEUT % 59 % (31-73); PLATELET COUNT 131 x10^3/uL (140-400); RED BLOOD COUNT 4.25 x10^6/uL (3.50-5.40); RED CELL DISTRIBUTION WIDTH 16.6 % (11.5-14.5); WHITE BLOOD COUNT 3.3 x10^3/uL (4.0-11.0)
[2019-08-23 04:05] LABS: ALBUMIN 2.3 g/dL (3.4-5.0); ALBUMIN/GLOBULIN RATIO 0.5 (1.0-1.7); CALCIUM 9.4 mg/dL (8.5-10.1); CREATININE 0.5 mg/dL (0.6-1.0); GFR 124.2; POTASSIUM 3.1 mmol/L (3.5-5.1); TOTAL BILIRUBIN 0.3 mg/dL (0.2-1.0); TOTAL PROTEIN 7.2 g/dL (6.4-8.2)
[2019-08-23] MEDS: LEVOTHYROXINE 175 MCG TABLET PO SCH (04:57)
[2019-08-23] MEDS: traMADol 50 MG TABLET PO SCH ×3 (04:57→17:43)
[2019-08-23 05:24] LABS: % BANDS 8 % (0-9); % EOS 8 % (0-5); % LYMPHS 18 % (24-48); % MONOS 8 % (0-10); % MYELOS 1 % (0-0); % SEGS 57 % (35-66); HYPOCHROMIA SLIGHT; PLT ESTIMATE DECREASED (ADEQUATE)
[2019-08-23 05:25] LABS: ANISOCYTOSIS SLIGHT; POLYCHROMASIA SLIGHT
[2019-08-23] MEDS: MEROPENEM 1 GM in IV NORMAL SALINE 100ML 100 ML IV SCH ×3 (05:38→20:50)
[2019-08-23 07:00] VITALS: BP 139/75
--- NOTE | 2019-08-23 07:42 | PDOC ---
Infectious Disease Note Vital Sign Vital Signs Vital Signs Date Time Temp Pulse Resp B/P (MAP) Pulse Ox O2 Delivery O2 Flow Rate FiO2 08/23/19 05:42 20 92 Nasal Cannula 4.0 08/23/19 02:45 98.8 74 169/89 (115) 98.8 Labs Lab Laboratory Tests Test 08/22/19 09:25 08/22/19 09:38 08/22/19 16:23 08/22/19 20:40 White Blood Count 5.0 x10^3/uL (4.0-11.0) Red Blood Count 4.42 x10^6/uL (3.50-5.40) Hemoglobin 12.4 g/dL (12.0-15.5) Hematocrit 38.5 % (36.0-47.0) Mean Corpuscular Volume 87 fL (79-100) Mean Corpuscular Hemoglobin 28 pg (25-35) Mean Corpuscular Hemoglobin Concent 32 g/dL (31-37) Red Cell Distribution Width 16.5 % (11.5-14.5) Platelet Count 138 x10^3/uL (140-400) Neutrophils (%) (Auto) 66 % (31-73) Lymphocytes (%) (Auto) 23 % (24-48) Monocytes (%) (Auto) 9 % (0-9) Eosinophils (%) (Auto) 3 % (0-3) Basophils (%) (Auto) 0 % (0-3) Neutrophils # (Auto) 3.3 x10^3/uL (1.8-7.7) Lymphocytes # (Auto) 1.1 x10^3/uL (1.0-4.8) Monocytes # (Auto) 0.5 x10^3/uL (0.0-1.1) Eosinophils # (Auto) 0.1 x10^3/uL (0.0-0.7) Basophils # (Auto) 0.0 x10^3/uL (0.0-0.2) Sodium Level 145 mmol/L (136-145) Potassium Level 3.7 mmol/L (3.5-5.1) Chloride Level 104 mmol/L (98-107) Carbon Dioxide Level 36 mmol/L (21-32) Anion Gap 5 (6-14) Blood Urea Nitrogen 11 mg/dL (7-20) Creatinine 0.5 mg/dL (0.6-1.0) Estimated GFR (Cockcroft-Gault) 124.2 BUN/Creatinine Ratio 22 (6-20) Glucose Level 144 mg/dL (70-99) Lactic Acid Level 1.1 mmol/L (0.4-2.0) Calcium Level 9.6 mg/dL (8.5-10.1) Total Bilirubin 0.2 mg/dL (0.2-1.0) Aspartate Amino Transf (AST/SGOT) 21 U/L (15-37) Alanine Aminotransferase (ALT/SGPT) 8 U/L (14-59) Alkaline Phosphatase 67 U/L (46-116) ZE-Hvb-M-Type Natriuretic Peptide 1158 pg/mL (0-124) Total Protein 7.4 g/dL (6.4-8.2) Albumin 2.4 g/dL (3.4-5.0) Albumin/Globulin Ratio 0.5 (1.0-1.7) Procalcitonin < 0.10 ng/mL (0.00-0.10) Urine Collection Type Unknown Urine Color Yellow Urine Clarity Clear Urine pH 7.5 Urine Specific [place] 1.010 Urine Protein Negative mg/dL (NEG-TRACE) Urine Glucose (UA) Negative mg/dL (NEG) Urine Ketones (Stick) Negative mg/dL (NEG) Urine Blood Negative (NEG) Urine Nitrite Negative (NEG) Urine Bilirubin Negative (NEG) Urine Urobilinogen Dipstick 1.0 mg/dL (0.2 mg/dL) Urine Leukocyte Esterase Large (NEG) Urine RBC 3-5 /HPF (0-2) Urine WBC >40 /HPF (0-4) Urine Squamous Epithelial Cells Occ /LPF Urine Bacteria Few /HPF (0-FEW) O2 Saturation 89 % (92-99) Arterial Blood pH 7.35 (7.35-7.45) Arterial Blood pCO2 at Patient Temp 67 mmHg (35-46) Arterial Blood pO2 at Patient Temp 58 mmHg (65-108) Arterial Blood HCO3 36 mmol/L (21-28) Arterial Blood Base Excess 8 mmol/L (-3-3) FiO2 50 Glucose (Fingerstick) 101 mg/dL (70-99) 149 mg/dL (70-99) Test 08/23/19 03:05 08/23/19 07:35 White Blood Count 3.3 x10^3/uL (4.0-11.0) Red Blood Count 4.25 x10^6/uL (3.50-5.40) Hemoglobin 12.1 g/dL (12.0-15.5) Hematocrit 36.8 % (36.0-47.0) Mean Corpuscular Volume 87 fL (79-100) Mean Corpuscular Hemoglobin 28 pg (25-35) Mean Corpuscular Hemoglobin Concent 33 g/dL (31-37) Red Cell Distribution Width 16.6 % (11.5-14.5) Platelet Count 131 x10^3/uL (140-400) Neutrophils (%) (Auto) 59 % (31-73) Lymphocytes (%) (Auto) 21 % (24-48) Monocytes (%) (Auto) 13 % (0-9) Eosinophils (%) (Auto) 7 % (0-3) Basophils (%) (Auto) 1 % (0-3) Neutrophils # (Auto) 1.9 x10^3/uL (1.8-7.7) Lymphocytes # (Auto) 0.7 x10^3/uL (1.0-4.8) Monocytes # (Auto) 0.4 x10^3/uL (0.0-1.1) Eosinophils # (Auto) 0.2 x10^3/uL (0.0-0.7) Basophils # (Auto) 0.0 x10^3/uL (0.0-0.2) Segmented Neutrophils % 57 % (35-66) Band Neutrophils % 8 % (0-9) Lymphocytes % 18 % (24-48) Monocytes % 8 % (0-10) Eosinophils % 8 % (0-5) Myelocytes % 1 % (0-0) Platelet Estimate Decreased (ADEQUATE) Polychromasia Slight Hypochromasia Slight Basophilic Stippling Anisocytosis Slight Sodium Level 147 mmol/L (136-145) Potassium Level 3.1 mmol/L (3.5-5.1) Chloride Level 104 mmol/L (98-107) Carbon Dioxide Level 39 mmol/L (21-32) Anion Gap 4 (6-14) Blood Urea Nitrogen 11 mg/dL (7-20) Creatinine 0.5 mg/dL (0.6-1.0) Estimated GFR (Cockcroft-Gault) 124.2 BUN/Creatinine Ratio 22 (6-20) Glucose Level 124 mg/dL (70-99) Calcium Level 9.4 mg/dL (8.5-10.1) Total Bilirubin 0.3 mg/dL (0.2-1.0) Aspartate Amino Transf (AST/SGOT) 17 U/L (15-37) Alanine Aminotransferase (ALT/SGPT) 8 U/L (14-59) Alkaline Phosphatase 64 U/L (46-116) Total Protein 7.2 g/dL (6.4-8.2) Albumin 2.3 g/dL (3.4-5.0) Albumin/Globulin Ratio 0.5 (1.0-1.7) Glucose (Fingerstick) 124 mg/dL (70-99) Objective Assessment pt seen, consult dictated Plan Plan of Care / CHIRAG HAWLEY MD Aug 23, 2019 07:42
[2019-08-23] MEDS: INSULIN LISPRO 300 UNITS/3 ML VIAL. SQ SCH ×3 (08:00→17:00)
--- NOTE | 2019-08-23 08:22 | CONS ---
DATE OF CONSULTATION: 08/23/2019 REQUESTING PHYSICIAN: Dr. Cage. REASON FOR CONSULTATION: UTI, possible pneumonia and MULTIPLE MEDICATION ALLERGIES. HISTORY OF PRESENT ILLNESS: This is a 64-year-old female who is with morbid obesity, obstructive sleep apnea, who also is a [facility], was brought in because of shortness of breath. The patient was hypoxic. The patient was recently being treated apparently at [facility], diagnosed with UTI. The patient here was noted to have bilateral pulmonary infiltrate, thought to be congestive heart failure. The patient has been started on vancomycin and meropenem and consult has been requested. The patient is currently on BiPAP. She nods to say she is feeling okay. She says her breathing is better through nodding. No much communication is possible. According to nursing, there is no nausea, vomiting, diarrhea, fever, chest pain, abdominal pain. PAST MEDICAL HISTORY: Positive for diabetes mellitus, hypertension, gastroesophageal reflux disease, hyperlipidemia, hypothyroidism, congestive heart failure, bipolar disorder, morbid obesity, obstructive sleep apnea. SOCIAL HISTORY: Negative for smoking, alcohol or drug use. The patient is a [facility] resident with [facility]. CURRENT MEDICATIONS: Reviewed. ALLERGIES: THE PATIENT IS LISTED ALLERGIC TO AZITHROMYCIN, CEFTRIAXONE, CIPROFLOXACIN, CLINDAMYCIN, SULFA. IT IS UNCLEAR WHAT HAPPENED WITH ANY OF THOSE. REVIEW OF SYSTEMS: As per HPI, all other systems reviewed through the patient's nurse as I mentioned in the HPI. PHYSICAL EXAMINATION: GENERAL: Awake female, not in any distress, although on a BiPAP. VITAL SIGNS: Stable, afebrile. HEENT: NAD. NECK: Supple, no JVP, no lymphadenopathy. LUNGS: Clear. HEART: S1, S2 regular. ABDOMEN: Benign. EXTREMITIES: No edema, cyanosis. SKIN: Unremarkable. NEUROLOGIC: The patient is neurologically awake, nods appropriately, but not much further communication right now is possible, does move all the extremities. LABORATORY DATA: White count is 3.3 down from 5000 yesterday. BUN and creatinine are normal. Lactic acid was normal. BNP is 1158. Urinalysis showed more than [address] showed hilar or mediastinal lymphadenopathy, splenomegaly, ground-glass opacity bilaterally, couple of left pulmonary nodules and negative for PE. IMPRESSION: 1. Urinary tract infection. 2. Bilateral pulmonary infiltrates, most likely to be congestive heart failure, infection cannot be entirely ruled out. 3. Morbid obesity. 4. Obstructive sleep apnea. 5. Diabetes. 6. Hypertension. 7. Gastroesophageal reflux disease. 8. Bipolar disorder. RECOMMENDATIONS: Recommend discontinue vancomycin, continue meropenem as she is more awake and more off BiPAP in the later part of the day. I may revisit with her to try to get feel about her allergies to see if there are any other options. We will also get some information from the [facility] if they have done recent urine culture. Thank you very much, Dr. Cage, for giving me opportunity to participate in this patient's care. CHIRAG HAWLEY MD DR: EUNICE/nts JOB#: [id number] / [id number]
[2019-08-23] MEDS: DOCUSATE SODIUM 100 MG CAPSULE. PO SCH ×2 (08:26→20:47)
[2019-08-23] MEDS: PILOCARPINE 5 MG TABLET. PO SCH ×3 (08:27→20:47)
[2019-08-23] MEDS: amLODIPine BESYLATE 10 MG TABLET PO SCH (08:27)
[2019-08-23] MEDS: LACTOBACILLUS RHAMNOSUS GG 1 CAPSULE. PO SCH ×2 (08:28→20:48)
[2019-08-23] MEDS: PREGABALIN 75 MG CAPSULE PO SCH ×3 (08:28→20:48)
[2019-08-23] MEDS: CETIRIZINE HCL 10 MG TABLET. PO SCH (08:29)
[2019-08-23] MEDS: ACETAMINOPHEN 500 MG TABLET PO SCH (08:29)
[2019-08-23] MEDS: POTASSIUM CHLORIDE 20 MEQ TABLET.ER. PO SCH (08:29)
[2019-08-23] MEDS: busPIRone 5 MG TABLET. PO SCH ×2 (08:29→20:47)
[2019-08-23] MEDS: DIVALPROEX EXTENDED RELEASE 500 MG TAB.ER.24H. PO SCH (08:30)
[2019-08-23] MEDS: METHYL SALICYLATE/MENTHOL TOPICAL OINTMENT 57GM TUBE. TP SCH ×3 (08:30→20:48)
[2019-08-23] MEDS: IPRATRPIUM/ALBUTEROL 0.5/2.5MG 3 ML NEBU. NEB SCH (08:33)
--- NOTE | 2019-08-23 08:49 | NUR ---
Lab called with critical results on blood cultures-- Dr. Mitchell ordered for pt to be placed back on Vanco dosed per pharmacy.
[2019-08-23] MEDS ORDERED: VANCOMYCIN 1.5 GM in IV NORMAL SALINE 500ML BAG 500 ML IV SCH ×3 (09:00)
[2019-08-23] MEDS ORDERED: DIMETHICONE TP SCH (09:00)
--- NOTE | 2019-08-23 10:12 | NUR ---
[facility] ICU transmitter engineer in charge notified of positive sepsis screen this AM. ID already following pt. Antibiotics infusing.
[2019-08-23 10:43] VITALS: BP 111/52
--- NOTE | 2019-08-23 11:29 | PDOC2 ---
CRISTA NIETO CREDIT RATING CHECKER 08/23/19 1129: CARDIAC CONSULT DATE OF CONSULT Date of Consult DATE: 08/23/19 TIME: 11:28 REASON FOR CONSULT Reason for Consult: CHF Hypoxia REFERRING PHYSICIAN Referring Physician: Dr. Cage SOURCE Source: Chart review, Patient HISTORY OF PRESENT ILLNESS HISTORY OF PRESENT ILLNESS This is a 64 yo female, with a history of developmental delay, who presented from nursing facility secondary to fevers and decreased oxygen saturations. Patient is a poor historian due to developmental delay. Presently denies any shortness of breath, dizziness, diaphoresis, or nausea/vomiting. Thinks she may have had a fever but not sure. PAST MEDICAL HISTORY Cardiovascular: CHF, HTN, Hyperlipidemia Pulmonary: COPD, Other (SOA) CENTRAL NERVOUS SYSTEM: Periperal neuropathy, Other (MR) GI: GERD Psych: Anxiety, Bipolar, Depression Musculoskeletal: Osteoarthritis Endocrine: Diabetes, Hypothyroidism PAST SURGICAL HISTORY Past Surgical History: No pertinent history FAMILY HISTORY Family History: Cancer SOCIAL HISTORY Smoke: No ALCOHOL: none Drugs: None Lives: Group Home CURRENT MEDICATIONS CURRENT MEDICATIONS Current Medications Medications (Trade) Dose Ordered Sig/Holden Route PRN Reason Start Time Stop Time Status Last Admin Dose Admin Albuterol/ Ipratropium (Duoneb) 3 ml RTQID NEB 08/22/19 12:00 08/23/19 11:59 08/23/19 08:33 Vancomycin HCl 500 mg/Sodium Chloride 100 ml @ 100 mls/hr 1X ONCE IV 08/22/19 12:30 08/22/19 13:29 DC 08/22/19 16:22 Meropenem 1 gm/ Sodium Chloride 100 ml @ 200 mls/hr Q8HRS IV 08/22/19 14:00 08/23/19 05:38 Acetaminophen (Tylenol) 1,000 mg DAILY PO 08/22/19 13:00 08/23/19 08:29 Albuterol Sulfate (Ventolin Neb Soln) 2.5 mg RTQID NEB 08/22/19 13:00 08/22/19 20:20 DC 08/22/19 15:41 Divalproex Sodium (Depakote Er) 500 mg DAILY PO 08/22/19 13:00 08/23/19 08:30 Docusate Sodium (Colace) 100 mg BID PO 08/22/19 13:00 08/23/19 08:26 Lactobacillus Rhamnosus (Culturelle) 1 cap BID PO 08/22/19 13:00 08/23/19 08:28 Levothyroxine Sodium (Synthroid) 175 mcg DAILY06 PO 08/22/19 13:00 08/23/19 04:57 Pilocarpine HCl (Salagen) 10 mg TID PO 08/22/19 14:00 08/23/19 08:27 Pregabalin (Lyrica) 75 mg TID PO 08/22/19 14:00 08/23/19 09:38 Risperidone (RisperDAL) 1 mg QHS PO 08/22/19 21:00 08/22/19 20:49 Trazodone HCl (Desyrel) 50 mg QHS PO 08/22/19 21:00 08/22/19 20:50 Cetirizine HCl (ZyrTEC) 10 mg DAILY PO 08/22/19 13:00 08/23/19 08:29 Multi-Ingredient Ointment (Analgesic [place]) 1 kashif TID TP 08/22/19 14:00 08/23/19 08:30 Furosemide (Lasix) 60 mg 1X ONCE IVP 08/22/19 14:00 08/22/19 14:01 DC 08/22/19 16:21 Potassium Chloride (Klor-Con) 40 meq DAILYWBKFT PO 08/23/19 08:00 08/23/19 08:29 Amlodipine Besylate (Norvasc) 10 mg DAILY PO 08/23/19 09:00 08/23/19 08:27 Buspirone HCl (Buspar) 2.5 mg BID PO 08/22/19 21:00 08/23/19 08:29 Divalproex Sodium (Depakote Er) 1,250 mg HS PO 08/22/19 21:00 08/22/19 20:50 Rivaroxaban (Xarelto) 20 mg QPM PO 08/22/19 18:00 08/22/19 18:59 Tramadol HCl (Ultram) 100 mg Q6HRS PO 08/22/19 18:00 08/23/19 04:57 Vancomycin HCl 1.5 gm/Sodium Chloride 500 ml @ 250 mls/hr Q8H IV 08/23/19 00:00 08/23/19 07:42 DC 08/22/19 23:37 Influenza Virus Vaccine Quadrival (Guillermouria Quad 2019-20 (3yr Up) Syringe) 0.5 ml ONCE ONCE VAX IM 08/22/19 21:00 08/22/19 21:01 DC 08/23/19 10:56 Vancomycin HCl 1.5 gm/Sodium Chloride 500 ml @ 250 mls/hr Q8H IV 08/23/19 09:00 08/23/19 09:37 ALLERGIES ALLERGIES: Coded Allergies: Bbzvylv-Svk-Lgh Reductase Inhibitor (Verified Allergy, Intermediate, 02/02/19) azithromycin (Verified Allergy, Intermediate, 02/02/19) budesonide (Verified Allergy, Intermediate, 02/02/19) ceftriaxone (Verified Allergy, Intermediate, 02/02/19) ciprofloxacin (Verified Allergy, Intermediate, 02/02/19) clindamycin (Verified Allergy, Intermediate, 02/02/19) formoterol (Verified Allergy, Intermediate, 02/02/19) latex (Verified Allergy, Intermediate, 02/02/19) lorazepam (Verified Allergy, Intermediate, 02/02/19) morphine (Verified Allergy, Intermediate, 02/02/19) mupirocin (Verified Allergy, Intermediate, 02/02/19) sulfur dioxide (Verified Allergy, Intermediate, 02/02/19) ROS Review of System 14 point ROS conducted with pertinent positives noted above in HPI. PHYSICAL EXAM General: Alert, Cooperative, No acute distress HEENT: Atraumatic, Mucous membr. moist/pink Lungs: Other (crackles ) Heart: Regular rate, Normal S1, Normal S2 Abdomen: Soft, No tenderness, Other (obese ) Extremities: Other (1+ bilateral LE edema ) Skin: No significant lesion Neuro: Normal speech, Sensation intact Psych/Mental Status: Mood NL MUSCULOSKELETAL: Osteoarthritic changes both hands VITALS/I&O VITALS/I&O: Vital Signs Date Time Temp Pulse Resp B/P (MAP) Pulse Ox O2 Delivery O2 Flow Rate FiO2 08/23/19 10:43 99.5 79 22 111/52 (71) 94 Nasal Cannula 5.0 99.5 I & O 08/22/19 08/22/19 08/23/19 15:00 23:00 07:00 Intake Total 2360 ml 340 ml 1300 ml Output Total 450 ml 2500 ml 300 ml Balance 1910 ml -2160 ml 1000 ml LABS Lab: Laboratory Tests Test 08/22/19 16:23 08/22/19 20:40 08/23/19 03:05 08/23/19 07:35 Glucose (Fingerstick) 101 mg/dL (70-99) H 149 mg/dL (70-99) H 124 mg/dL (70-99) H White Blood Count 3.3 x10^3/uL (4.0-11.0) L Red Blood Count 4.25 x10^6/uL (3.50-5.40) Hemoglobin 12.1 g/dL (12.0-15.5) Hematocrit 36.8 % (36.0-47.0) Mean Corpuscular Volume 87 fL (79-100) Mean Corpuscular Hemoglobin 28 pg (25-35) Mean Corpuscular Hemoglobin Concent 33 g/dL (31-37) Red Cell Distribution Width 16.6 % (11.5-14.5) H Platelet Count 131 x10^3/uL (140-400) L Neutrophils (%) (Auto) 59 % (31-73) Lymphocytes (%) (Auto) 21 % (24-48) L Monocytes (%) (Auto) 13 % (0-9) H Eosinophils (%) (Auto) 7 % (0-3) H Basophils (%) (Auto) 1 % (0-3) Neutrophils # (Auto) 1.9 x10^3/uL (1.8-7.7) Lymphocytes # (Auto) 0.7 x10^3/uL (1.0-4.8) L Monocytes # (Auto) 0.4 x10^3/uL (0.0-1.1) Eosinophils # (Auto) 0.2 x10^3/uL (0.0-0.7) Basophils # (Auto) 0.0 x10^3/uL (0.0-0.2) Segmented Neutrophils % 57 % (35-66) Band Neutrophils % 8 % (0-9) Lymphocytes % 18 % (24-48) L Monocytes % 8 % (0-10) Eosinophils % 8 % (0-5) H Myelocytes % 1 % (0-0) H Platelet Estimate Decreased (ADEQUATE) Polychromasia Slight Hypochromasia Slight Basophilic Stippling Anisocytosis Slight Sodium Level 147 mmol/L (136-145) H Potassium Level 3.1 mmol/L (3.5-5.1) L Chloride Level 104 mmol/L (98-107) Carbon Dioxide Level 39 mmol/L (21-32) H Anion Gap 4 (6-14) L Blood Urea Nitrogen 11 mg/dL (7-20) Creatinine 0.5 mg/dL (0.6-1.0) L Estimated GFR (Cockcroft-Gault) 124.2 BUN/Creatinine Ratio 22 (6-20) H Glucose Level 124 mg/dL (70-99) H Calcium Level 9.4 mg/dL (8.5-10.1) Total Bilirubin 0.3 mg/dL (0.2-1.0) Aspartate Amino Transferase (AST) 17 U/L (15-37) Alanine Aminotransferase (ALT) 8 U/L (14-59) L Alkaline Phosphatase 64 U/L (46-116) Total Protein 7.2 g/dL (6.4-8.2) Albumin 2.3 g/dL (3.4-5.0) L Albumin/Globulin Ratio 0.5 (1.0-1.7) L Laboratory Tests 08/23/19 03:05 Laboratory Tests 08/23/19 03:05 ASSESSMENT/PLAN ASSESSMENT/PLAN 1. Acute on chronic respiratory failure with possible PNA and mild CHF 2. Mild acute on chronic probable diastolic CHF; s/p IV Lasix 3. Fevers, bacteremia; BC+ for GPC. as per ID 4. Hypertension; controlled 5. Hyperlipidemia 6. Diabetes, II; as per PCP 7. H/o chronic embolism, thrombosis; on Xarelto 8. AJ 9. Hypothyroidism 10. Hypokalemia 11. Developmental delay Recommendations Mild diuresis Echo to assess LV systolic function Replace K, check Mg Ongoing antibiotic therapy Supportive care RADHA MARTINEZ MD 08/23/19 2019: CARDIAC CONSULT ASSESSMENT/PLAN ASSESSMENT/PLAN Patient seen and examined. Agree with CALL CENTER SUPPORT REPRESENTATIVE's assessment and plan. Acute resp failure prob secondary to combination of pneumonia and ac on chr diastolic HF Continue gentle diuresis. Pulm following Check 2D echo to assess LV function Continue workup for sepsis per ID Thank you for your consultation CRISTA NIETO APRN Aug 23, 2019 11:29 RADHA MARTINEZ MD Aug 23, 2019 20:19
--- NOTE | 2019-08-23 12:42 | PDOC ---
[facility] [facility] PROGRESS NOTE Chief Complaint Chief Complaint Pneumonia Hypoxia Cognitive impairment Lymphedema Sepsis HTN COPD GERD Anxiety Bipolar Depression Psychosis Diabetes History of Present Illness History of Present Illness Patient seen and examined Discussed with RN Vitals/I&O Vitals/I&O: Vital Signs Date Time Temp Pulse Resp B/P (MAP) Pulse Ox O2 Delivery O2 Flow Rate FiO2 08/23/19 12:27 92 Nasal Cannula 4.0 08/23/19 10:43 99.5 79 22 111/52 (71) 99.5 I & O 08/22/19 08/22/19 08/23/19 15:00 23:00 07:00 Intake Total 2360 ml 340 ml 1300 ml Output Total 450 ml 2500 ml 300 ml Balance 1910 ml -2160 ml 1000 ml Physical Exam General: mild distress, Other (pleasantly confused) Heart: Regular rate, No murmurs Lungs: Crackles, Other Abdomen: Normal bowel sounds, Soft, No tenderness, No hepatosplenomegaly, No masses, Other (obes,e, flabby, non tender NABS) Extremities: Normal pulses, Other (post inflamm hyperpigmentation, pitting edema plus 2-3) Skin: No rashes Labs Labs: Laboratory Tests Test 08/22/19 16:23 08/22/19 20:40 08/23/19 03:05 08/23/19 07:35 Glucose (Fingerstick) 101 mg/dL (70-99) 149 mg/dL (70-99) 124 mg/dL (70-99) White Blood Count 3.3 x10^3/uL (4.0-11.0) Red Blood Count 4.25 x10^6/uL (3.50-5.40) Hemoglobin 12.1 g/dL (12.0-15.5) Hematocrit 36.8 % (36.0-47.0) Mean Corpuscular Volume 87 fL (79-100) Mean Corpuscular Hemoglobin 28 pg (25-35) Mean Corpuscular Hemoglobin Concent 33 g/dL (31-37) Red Cell Distribution Width 16.6 % (11.5-14.5) Platelet Count 131 x10^3/uL (140-400) Neutrophils (%) (Auto) 59 % (31-73) Lymphocytes (%) (Auto) 21 % (24-48) Monocytes (%) (Auto) 13 % (0-9) Eosinophils (%) (Auto) 7 % (0-3) Basophils (%) (Auto) 1 % (0-3) Neutrophils # (Auto) 1.9 x10^3/uL (1.8-7.7) Lymphocytes # (Auto) 0.7 x10^3/uL (1.0-4.8) Monocytes # (Auto) 0.4 x10^3/uL (0.0-1.1) Eosinophils # (Auto) 0.2 x10^3/uL (0.0-0.7) Basophils # (Auto) 0.0 x10^3/uL (0.0-0.2) Segmented Neutrophils % 57 % (35-66) Band Neutrophils % 8 % (0-9) Lymphocytes % 18 % (24-48) Monocytes % 8 % (0-10) Eosinophils % 8 % (0-5) Myelocytes % 1 % (0-0) Platelet Estimate Decreased (ADEQUATE) Polychromasia Slight Hypochromasia Slight Basophilic Stippling Anisocytosis Slight Sodium Level 147 mmol/L (136-145) Potassium Level 3.1 mmol/L (3.5-5.1) Chloride Level 104 mmol/L (98-107) Carbon Dioxide Level 39 mmol/L (21-32) Anion Gap 4 (6-14) Blood Urea Nitrogen 11 mg/dL (7-20) Creatinine 0.5 mg/dL (0.6-1.0) Estimated GFR (Cockcroft-Gault) 124.2 BUN/Creatinine Ratio 22 (6-20) Glucose Level 124 mg/dL (70-99) Calcium Level 9.4 mg/dL (8.5-10.1) Magnesium Level 1.5 mg/dL (1.8-2.4) Total Bilirubin 0.3 mg/dL (0.2-1.0) Aspartate Amino Transf (AST/SGOT) 17 U/L (15-37) Alanine Aminotransferase (ALT/SGPT) 8 U/L (14-59) Alkaline Phosphatase 64 U/L (46-116) Total Protein 7.2 g/dL (6.4-8.2) Albumin 2.3 g/dL (3.4-5.0) Albumin/Globulin Ratio 0.5 (1.0-1.7) Test 08/23/19 12:05 Glucose (Fingerstick) 117 mg/dL (70-99) Review of Systems Review of Systems: Patient complains of SOB and weakness Assessment and Plan Assessmemt and Plan Problems Medical Problems: (1) HCAP (healthcare-associated pneumonia) Status: Acute (2) Hypoxia Status: Acute (3) UTI (urinary tract infection) Status: Acute Pneumonia Hypoxia Cognitive impairment Lymphedema Sepsis HTN COPD GERD Anxiety Bipolar Depression Psychosis Diabetes Plan: 1. Cardiac monitoring 2. DUONEBS 3. O2 PNC 4. IV ABX 5. Home meds 6. Await further subspecialist input 7. Full code Total time 31 minutes Comment Review of Relevant I have reviewed the following items katie (where applicable) has been applied. Medications: Current Medications Medications (Trade) Dose Ordered Sig/Holden Route PRN Reason Start Time Stop Time Status Last Admin Dose Admin Meropenem 1 gm/ Sodium Chloride 100 ml @ 200 mls/hr Q8HRS IV 08/22/19 14:00 08/23/19 05:38 Acetaminophen (Tylenol) 1,000 mg DAILY PO 08/22/19 13:00 08/23/19 08:29 Albuterol Sulfate (Ventolin Neb Soln) 2.5 mg RTQID NEB 08/22/19 13:00 08/22/19 20:20 DC 08/22/19 15:41 Divalproex Sodium (Depakote Er) 500 mg DAILY PO 08/22/19 13:00 08/23/19 08:30 Docusate Sodium (Colace) 100 mg BID PO 08/22/19 13:00 08/23/19 08:26 Lactobacillus Rhamnosus (Culturelle) 1 cap BID PO 08/22/19 13:00 08/23/19 08:28 Levothyroxine Sodium (Synthroid) 175 mcg DAILY06 PO 08/22/19 13:00 08/23/19 04:57 Pilocarpine HCl (Salagen) 10 mg TID PO 08/22/19 14:00 08/23/19 08:27 Pregabalin (Lyrica) 75 mg TID PO 08/22/19 14:00 08/23/19 09:38 Risperidone (RisperDAL) 1 mg QHS PO 08/22/19 21:00 08/22/19 20:49 Trazodone HCl (Desyrel) 50 mg QHS PO 08/22/19 21:00 08/22/19 20:50 Cetirizine HCl (ZyrTEC) 10 mg DAILY PO 08/22/19 13:00 08/23/19 08:29 Multi-Ingredient Ointment (Analgesic [place]) 1 kashif TID TP 08/22/19 14:00 08/23/19 08:30 Furosemide (Lasix) 60 mg 1X ONCE IVP 08/22/19 14:00 08/22/19 14:01 DC 08/22/19 16:21 Potassium Chloride (Klor-Con) 40 meq DAILYWBKFT PO 08/23/19 08:00 08/23/19 08:29 Amlodipine Besylate (Norvasc) 10 mg DAILY PO 08/23/19 09:00 08/23/19 08:27 Buspirone HCl (Buspar) 2.5 mg BID PO 08/22/19 21:00 08/23/19 08:29 Divalproex Sodium (Depakote Er) 1,250 mg HS PO 08/22/19 21:00 08/22/19 20:50 Rivaroxaban (Xarelto) 20 mg QPM PO 08/22/19 18:00 08/22/19 18:59 Tramadol HCl (Ultram) 100 mg Q6HRS PO 08/22/19 18:00 08/23/19 11:52 Vancomycin HCl 1.5 gm/Sodium Chloride 500 ml @ 250 mls/hr Q8H IV 08/23/19 00:00 08/23/19 07:42 DC 08/22/19 23:37 Influenza Virus Vaccine Quadrival (Afluria Quad 2018- (3yr Up) Syringe) 0.5 ml ONCE ONCE VAX IM 08/22/19 21:00 08/22/19 21:01 DC 08/23/19 10:56 Vancomycin HCl 1.5 gm/Sodium Chloride 500 ml @ 250 mls/hr Q8H IV 08/23/19 09:00 08/23/19 09:37 CHINA GOYAL III DO Aug 23, 2019 12:42
--- NOTE | 2019-08-23 14:15 | NUR ---
SS following for discharge planning. SS reviewed pt chart. Pt is from [facility] in [place], ; fax [phone]. SS contacted [facility] and verified that pt is a LTC resident from there facility and is able to return when medically stable for discharge. SS will continue to follow for discharge planning.
[2019-08-23 14:42] VITALS: BP 117/57
--- NOTE | 2019-08-23 14:57 | PDOC ---
PULMONARY PROGRESS NOTES Vitals Vital Signs Date Time Temp Pulse Resp B/P (MAP) Pulse Ox O2 Delivery O2 Flow Rate FiO2 08/23/19 14:42 99.1 77 22 117/57 (77) 90 Nasal Cannula 5.0 99.1 General: Alert, No acute distress Lungs: Crackles, Other Cardiovascular: S1, S2 Abdomen: Soft, Other Extremities: Other Labs Laboratory Tests Test 08/22/19 09:25 08/22/19 09:38 08/22/19 16:23 08/22/19 20:40 White Blood Count 5.0 x10^3/uL (4.0-11.0) Red Blood Count 4.42 x10^6/uL (3.50-5.40) Hemoglobin 12.4 g/dL (12.0-15.5) Hematocrit 38.5 % (36.0-47.0) Mean Corpuscular Volume 87 fL (79-100) Mean Corpuscular Hemoglobin 28 pg (25-35) Mean Corpuscular Hemoglobin Concent 32 g/dL (31-37) Red Cell Distribution Width 16.5 % (11.5-14.5) Platelet Count 138 x10^3/uL (140-400) Neutrophils (%) (Auto) 66 % (31-73) Lymphocytes (%) (Auto) 23 % (24-48) Monocytes (%) (Auto) 9 % (0-9) Eosinophils (%) (Auto) 3 % (0-3) Basophils (%) (Auto) 0 % (0-3) Neutrophils # (Auto) 3.3 x10^3/uL (1.8-7.7) Lymphocytes # (Auto) 1.1 x10^3/uL (1.0-4.8) Monocytes # (Auto) 0.5 x10^3/uL (0.0-1.1) Eosinophils # (Auto) 0.1 x10^3/uL (0.0-0.7) Basophils # (Auto) 0.0 x10^3/uL (0.0-0.2) Sodium Level 145 mmol/L (136-145) Potassium Level 3.7 mmol/L (3.5-5.1) Chloride Level 104 mmol/L (98-107) Carbon Dioxide Level 36 mmol/L (21-32) Anion Gap 5 (6-14) Blood Urea Nitrogen 11 mg/dL (7-20) Creatinine 0.5 mg/dL (0.6-1.0) Estimated GFR (Cockcroft-Gault) 124.2 BUN/Creatinine Ratio 22 (6-20) Glucose Level 144 mg/dL (70-99) Lactic Acid Level 1.1 mmol/L (0.4-2.0) Calcium Level 9.6 mg/dL (8.5-10.1) Total Bilirubin 0.2 mg/dL (0.2-1.0) Aspartate Amino Transf (AST/SGOT) 21 U/L (15-37) Alanine Aminotransferase (ALT/SGPT) 8 U/L (14-59) Alkaline Phosphatase 67 U/L (46-116) HT-Prb-B-Type Natriuretic Peptide 1158 pg/mL (0-124) Total Protein 7.4 g/dL (6.4-8.2) Albumin 2.4 g/dL (3.4-5.0) Albumin/Globulin Ratio 0.5 (1.0-1.7) Procalcitonin < 0.10 ng/mL (0.00-0.10) Urine Collection Type Unknown Urine Color Yellow Urine Clarity Clear Urine pH 7.5 Urine Specific Evangeline 1.010 Urine Protein Negative mg/dL (NEG-TRACE) Urine Glucose (UA) Negative mg/dL (NEG) Urine Ketones (Stick) Negative mg/dL (NEG) Urine Blood Negative (NEG) Urine Nitrite Negative (NEG) Urine Bilirubin Negative (NEG) Urine Urobilinogen Dipstick 1.0 mg/dL (0.2 mg/dL) Urine Leukocyte Esterase Large (NEG) Urine RBC 3-5 /HPF (0-2) Urine WBC >40 /HPF (0-4) Urine Squamous Epithelial Cells Occ /LPF Urine Bacteria Few /HPF (0-FEW) O2 Saturation 89 % (92-99) Arterial Blood pH 7.35 (7.35-7.45) Arterial Blood pCO2 at Patient Temp 67 mmHg (35-46) Arterial Blood pO2 at Patient Temp 58 mmHg (65-108) Arterial Blood HCO3 36 mmol/L (21-28) Arterial Blood Base Excess 8 mmol/L (-3-3) FiO2 50 Glucose (Fingerstick) 101 mg/dL (70-99) 149 mg/dL (70-99) Test 08/23/19 03:05 08/23/19 07:35 08/23/19 12:05 White Blood Count 3.3 x10^3/uL (4.0-11.0) Red Blood Count 4.25 x10^6/uL (3.50-5.40) Hemoglobin 12.1 g/dL (12.0-15.5) Hematocrit 36.8 % (36.0-47.0) Mean Corpuscular Volume 87 fL (79-100) Mean Corpuscular Hemoglobin 28 pg (25-35) Mean Corpuscular Hemoglobin Concent 33 g/dL (31-37) Red Cell Distribution Width 16.6 % (11.5-14.5) Platelet Count 131 x10^3/uL (140-400) Neutrophils (%) (Auto) 59 % (31-73) Lymphocytes (%) (Auto) 21 % (24-48) Monocytes (%) (Auto) 13 % (0-9) Eosinophils (%) (Auto) 7 % (0-3) Basophils (%) (Auto) 1 % (0-3) Neutrophils # (Auto) 1.9 x10^3/uL (1.8-7.7) Lymphocytes # (Auto) 0.7 x10^3/uL (1.0-4.8) Monocytes # (Auto) 0.4 x10^3/uL (0.0-1.1) Eosinophils # (Auto) 0.2 x10^3/uL (0.0-0.7) Basophils # (Auto) 0.0 x10^3/uL (0.0-0.2) Segmented Neutrophils % 57 % (35-66) Band Neutrophils % 8 % (0-9) Lymphocytes % 18 % (24-48) Monocytes % 8 % (0-10) Eosinophils % 8 % (0-5) Myelocytes % 1 % (0-0) Platelet Estimate Decreased (ADEQUATE) Polychromasia Slight Hypochromasia Slight Basophilic Stippling Anisocytosis Slight Sodium Level 147 mmol/L (136-145) Potassium Level 3.1 mmol/L (3.5-5.1) Chloride Level 104 mmol/L (98-107) Carbon Dioxide Level 39 mmol/L (21-32) Anion Gap 4 (6-14) Blood Urea Nitrogen 11 mg/dL (7-20) Creatinine 0.5 mg/dL (0.6-1.0) Estimated GFR (Cockcroft-Gault) 124.2 BUN/Creatinine Ratio 22 (6-20) Glucose Level 124 mg/dL (70-99) Calcium Level 9.4 mg/dL (8.5-10.1) Magnesium Level 1.5 mg/dL (1.8-2.4) Total Bilirubin 0.3 mg/dL (0.2-1.0) Aspartate Amino Transf (AST/SGOT) 17 U/L (15-37) Alanine Aminotransferase (ALT/SGPT) 8 U/L (14-59) Alkaline Phosphatase 64 U/L (46-116) Total Protein 7.2 g/dL (6.4-8.2) Albumin 2.3 g/dL (3.4-5.0) Albumin/Globulin Ratio 0.5 (1.0-1.7) Glucose (Fingerstick) 124 mg/dL (70-99) 117 mg/dL (70-99) Laboratory Tests Test 08/22/19 16:23 08/22/19 20:40 08/23/19 03:05 08/23/19 07:35 Glucose (Fingerstick) 101 mg/dL (70-99) 149 mg/dL (70-99) 124 mg/dL (70-99) White Blood Count 3.3 x10^3/uL (4.0-11.0) Red Blood Count 4.25 x10^6/uL (3.50-5.40) Hemoglobin 12.1 g/dL (12.0-15.5) Hematocrit 36.8 % (36.0-47.0) Mean Corpuscular Volume 87 fL (79-100) Mean Corpuscular Hemoglobin 28 pg (25-35) Mean Corpuscular Hemoglobin Concent 33 g/dL (31-37) Red Cell Distribution Width 16.6 % (11.5-14.5) Platelet Count 131 x10^3/uL (140-400) Neutrophils (%) (Auto) 59 % (31-73) Lymphocytes (%) (Auto) 21 % (24-48) Monocytes (%) (Auto) 13 % (0-9) Eosinophils (%) (Auto) 7 % (0-3) Basophils (%) (Auto) 1 % (0-3) Neutrophils # (Auto) 1.9 x10^3/uL (1.8-7.7) Lymphocytes # (Auto) 0.7 x10^3/uL (1.0-4.8) Monocytes # (Auto) 0.4 x10^3/uL (0.0-1.1) Eosinophils # (Auto) 0.2 x10^3/uL (0.0-0.7) Basophils # (Auto) 0.0 x10^3/uL (0.0-0.2) Segmented Neutrophils % 57 % (35-66) Band Neutrophils % 8 % (0-9) Lymphocytes % 18 % (24-48) Monocytes % 8 % (0-10) Eosinophils % 8 % (0-5) Myelocytes % 1 % (0-0) Platelet Estimate Decreased (ADEQUATE) Polychromasia Slight Hypochromasia Slight Basophilic Stippling Anisocytosis Slight Sodium Level 147 mmol/L (136-145) Potassium Level 3.1 mmol/L (3.5-5.1) Chloride Level 104 mmol/L (98-107) Carbon Dioxide Level 39 mmol/L (21-32) Anion Gap 4 (6-14) Blood Urea Nitrogen 11 mg/dL (7-20) Creatinine 0.5 mg/dL (0.6-1.0) Estimated GFR (Cockcroft-Gault) 124.2 BUN/Creatinine Ratio 22 (6-20) Glucose Level 124 mg/dL (70-99) Calcium Level 9.4 mg/dL (8.5-10.1) Magnesium Level 1.5 mg/dL (1.8-2.4) Total Bilirubin 0.3 mg/dL (0.2-1.0) Aspartate Amino Transf (AST/SGOT) 17 U/L (15-37) Alanine Aminotransferase (ALT/SGPT) 8 U/L (14-59) Alkaline Phosphatase 64 U/L (46-116) Total Protein 7.2 g/dL (6.4-8.2) Albumin 2.3 g/dL (3.4-5.0) Albumin/Globulin Ratio 0.5 (1.0-1.7) Test 08/23/19 12:05 Glucose (Fingerstick) 117 mg/dL (70-99) Medications Active Scripts Medications Dose Route/Sig Max Daily Dose Days Date Category Depakote (Divalproex Sodium) 500 Mg Tablet.dr 1,250 Mg PO HS 08/22/19 Reported Xarelto (Rivaroxaban) 20 Mg Tablet 20 Mg PO DAILY 08/22/19 Reported Cavilon Durable Barrier (Dimethicone) 92 Gm Cream..g. 92 Gm TP DAILY 08/22/19 Reported Buspirone Hcl 5 Mg Tablet 2.5 Mg PO BID 08/22/19 Reported Tramadol Hcl 100 Mg Tab.er.24h 100 Mg PO Q6HRS 08/22/19 Reported Amlodipine Besylate 10 Mg Tablet 10 Mg PO DAILY 08/22/19 Reported Humalog (Insulin Lispro) 100 Unit/1 Ml Insuln.pen 0 Units SQ TIDWMEALS 14 07/22/19 Rx Culturelle (Lactobacillus Rhamnosus Gg) 1 Each Cap.sprink 1 Cap PO BID 30 07/22/19 Rx [Acetazolamide Sodium] 500 MG Vial 500 Mg IVP DAILY 14 07/22/19 Rx Vitamin D (Cholecalciferol (Vitamin D3)) 5,000 Unit Capsule 5,000 Unit PO WEEKLY 02/02/19 Reported Tylenol Extra Strength (Acetaminophen) 500 Mg Tablet 2 Mg PO DAILY 02/02/19 Reported Trazodone Hcl 50 Mg Tablet 1 Tab PO QHS 02/02/19 Reported Risperdal (Risperidone) 1 Mg Tablet 1 Mg PO QHS 02/02/19 Reported Proventil Hfa Inhaler (Albuterol Sulfate) 6.7 Gm Hfa.aer.ad 1 Puff IH PRN Q4HRS PRN 02/02/19 Reported Potassium Chloride 20 Meq Tablet.er 20 Meq PO DAILY 02/02/19 Reported Miralax (Polyethylene Glycol 3350) 17 Gm Powd.pack 1 Packet PO DAILY PRN 02/02/19 Reported Pilocarpine Hcl 5 Mg Tablet 10 Mg PO TID 02/02/19 Reported Lyrica (Pregabalin) 75 Mg Capsule 1 Cap PO TID 02/02/19 Reported Levothyroxine Sodium 175 Mcg Tablet 1 Tab PO DAILY 02/02/19 Reported Divalproex Sodium Er (Divalproex Sodium) 500 Mg Tab.er.24h 1 Tab PO DAILY 02/02/19 Reported Colace (Docusate Sodium) 100 Mg Capsule 1 Cap PO BID 02/02/19 Reported Biofreeze (Menthol) 118 Ml Gel..ml. 118 Ml TP TID 02/02/19 Reported Albuterol Sulfate Neb Soln (Albuterol Sulfate) 2.5 Mg/3 Ml Vial.neb 1 Vial NEB PRN Q4HRS 02/02/19 Reported Impression . AGREE WITH CURRENT RX FOR POSSIBLE INFECTION/PNEUMONIA CONTINUE THE BIPAP THANKS SAUD WASHBURN MD Aug 23, 2019 14:57
[2019-08-23] MEDS: FUROSEMIDE 40 MG/4 ML VIAL. IVP SCH (15:15)
[2019-08-23] MEDS ORDERED: IPRATRPIUM/ALBUTEROL 0.5/2.5MG 3 ML NEBU. ONE (16:10)
[2019-08-23] MEDS ORDERED: MAGNESIUM SULFATE 2GM 50 ML IV ONE (16:30)
[2019-08-23 17:22] LABS: CHOLESTEROL/HDL RATIO 4.8
[2019-08-23] MEDS: RIVAROXABAN 10 MG TABLET. PO SCH (17:42)
[2019-08-23] MEDS: VANCOMYCIN PER PHARMACY MC PRN ×2 (17:46→17:54)
[2019-08-23 19:20] VITALS: BP 171/76
[2019-08-23] MEDS: ALBUTEROL SULFATE 2.5 MG/3 ML NEBU. NEB PRN (19:38)
[2019-08-23] MEDS: risperiDONE 1 MG TABLET. PO SCH (20:47)
[2019-08-23] MEDS: DIVALPROEX EXTENDED RELEASE 250 MG TAB.ER.24H. PO SCH (20:47)
[2019-08-23] MEDS: traZODone 50 MG TABLET. PO SCH (20:48)
[2019-08-23 22:40] VITALS: BP 140/68
[2019-08-24] VITALS (19 sets, daily range): BP systolic 113–170; BP diastolic 56–102
[2019-08-24] MEDS ORDERED: VANCOMYCIN RANDOM LEVEL. MC ONE (00:30)
[2019-08-24] MEDS: traMADol 50 MG TABLET PO SCH ×5 (00:55→23:45)
[2019-08-24 01:49] LABS: CREATININE 0.4 mg/dL (0.6-1.0); GFR 160.7
[2019-08-24] MEDS: VANCOMYCIN 1.5 GM in IV NORMAL SALINE 500ML BAG 500 ML IV SCH ×2 (02:25→14:58)
--- NOTE | 2019-08-24 02:28 | CONS ---
DATE OF CONSULTATION: 08/23/2019 ATTENDING PHYSICIAN: Genesis Cage MD DICTATING PHYSICIAN: Saud Caro MD REASON FOR CONSULTATION: The patient seen in Pulmonary consultation at the request of Dr. Patterson for abnormal CT chest. HISTORY OF PRESENT ILLNESS: The patient is a 64-year-old female, morbid obese, obstructive sleep apnea, is total care at the care home, was brought into the Emergency Room for shortness of breath. She was hypoxic. CT angiogram was obtained. I personally reviewed the CT, there was some motion artifact, but there was no evidence of central pulmonary emboli. There was a left pulmonary nodule measuring 8 mm. There were mild ground glass opacities throughout both lung white. She had a hilar mediastinal adenopathy, which was no definitive on previous scan. The patient has a cough, mostly nonproductive. She was recently treated for UTI at the care home. She is currently being seen by the Infectious Disease Service. She is on antibiotics. PAST MEDICAL HISTORY: Remarkable for previous admission back in July for [id number] hypoxemic hypercapnic respiratory failure. At that time, she required BiPAP. She also had fever and sepsis. She has a history of obstructive sleep apnea, normally wears CPAP at home, bipolar disorder, chronic respiratory failure on 2 liters of oxygen supplementation at the care home. In addition, she has gastroesophageal reflux, chronic congestive heart failure, hypertension and diabetes. PAST SURGICAL HISTORY: No recent major surgeries. SOCIAL HISTORY: She denies any tobacco use. MEDICATIONS: List was reviewed. ALLERGIES: She has multiple allergies, please see the list. REVIEW OF SYSTEMS: As indicated above, otherwise CONSTITUTIONAL: No fever or chills. EYES: No change in visual acuity. HEENT: No nasal congestion or sore throat. PULMONARY: As indicated above. CARDIOVASCULAR: No chest pain. No pressure. GASTROINTESTINAL: No nausea, vomiting or diarrhea. GENITOURINARY: No dysuria or frequency. MUSCULOSKELETAL: No localized muscle aches or joint pains. SKIN: No new skin rashes. CURRENT MEDICATION: List was reviewed. PHYSICAL EXAMINATION: VITAL SIGNS: Morbid obese individual, currently off of BiPAP. She has had a T-max yesterday of 100.9. HEENT: Eyes, the sclerae were nonicteric. NECK: Jugular venous distention could not be assessed secondary to body habitus. CHEST: Full expansion. LUNGS: Anteriorly were clear with crackles in the bases. CARDIOVASCULAR: Regular rate and rhythm with S1 and S2, no S3. ABDOMEN: Soft and obese. EXTREMITIES: No clubbing or cyanosis, minimal edema. NEUROLOGIC: The patient was lying in bed. A detailed neuro exam was not performed. LABORATORY DATA: Arterial blood gas revealed a pH of 7.35, PaCO2 of 67 and pO2 of 58. Electrolytes were noted, deranged. Potassium was low. Sodium was high. Albumin was low. White count was normal today, repeat was low. IMPRESSION: 1. Acute on chronic hypoxemic hypercapnic respiratory failure. 2. Abnormal CT revealing ground glass opacities compatible with pulmonary edema, nonspecific alveolitis, possibly infectious in origin. 3. Urinary tract infection. 4. Morbid obesity. 5. Obstructive sleep apnea/obesity hypoventilation syndrome. 6. Leukopenia. 7. Diabetes. 8. Hypernatremia. 9. Severe protein malnutrition, present upon admission. PLAN: 1. We will continue current empiric antibiotics. 2. BiPAP. 3. Follow ID input. 4. Continue home meds. 5. Follow Cardiology input. I do appreciate the privilege in sharing in the patient's care. SAUD WASHBURN MD DR: SUSAN/ted JOB#: [id number] / [id number]
[2019-08-24] MEDS: VANCOMYCIN PER PHARMACY MC PRN ×2 (03:03→14:21)
--- NOTE | 2019-08-24 03:04 | NUR ---
Pharmacy Vancomycin Dosing Note S:Consulted to monitor and dose vancomycin started 08/22/19. O:ROGE RAM is a 64 year old F with Bacteremia HCAP . Height: 5 feet, 7 inches Weight: 132.085733 kg [place] Body Weight: 61.60 Adjusted Body Weight: 92.16 Dosing Weight: Actual Other Antibiotics: MERREM 1G IV Q8HRS LABS: Last BUN: 11 Last Creatinine: 0.5 Creatinine Clearance: > 120 mL/min Last WBC: 5 Last Procalcitonin: < 0.1 Tmax (past 24 hours): 100.9 Microbiology: 08/23: 08/22 BCX GPC CLUSTERS 2/4 BOTTLES I/O: 5250/450 Drug Levels: Last Random level: 13.5 on 08/24/19 at 0030 Last dose given 08/23/19 at 0937 Vancomycin Dosing: Loading Dose: 2000 mg x1 Dosing Weight: Actual Target Trough: 15-20 A: Based on: TROUGH P: 1. Begin Vancomycin 1500 mg IV q12h 2. Follow up Trough level on 08/25/19 at 1330 3. Pharmacy will continue to monitor, follow and adjust therapy as needed. NICOLE CUEVAS RPH, 08/24/19 030 Signed: 08/24/19 at 0304 by NICOLE CUEVAS RPH PHA
[2019-08-24] MEDS ORDERED: NITROGLYCERIN PREMIX 250 ML IV PRN (04:15)
--- NOTE | 2019-08-24 04:54 | NUR ---
Patient hypotensive this shift and contacted Dr. Zepeda and new orders for nitro drip.
[2019-08-24] MEDS: LEVOTHYROXINE 175 MCG TABLET PO SCH (05:53)
[2019-08-24] MEDS: MEROPENEM 1 GM in IV NORMAL SALINE 100ML 100 ML IV SCH ×3 (05:54→20:57)
[2019-08-24 06:32] LABS: CREATININE 0.4 mg/dL (0.6-1.0); GFR 160.7; POTASSIUM 3.5 mmol/L (3.5-5.1)
[2019-08-24 06:48] LABS: BASO % 0 % (0-3); EOS # 0.1 x10^3/uL (0.0-0.7); EOS % 2 % (0-3); HEMOGLOBIN 11.6 g/dL (12.0-15.5); LYMPH # 0.6 x10^3/uL (1.0-4.8); LYMPH % 16 % (24-48); MEAN CORPUSCULAR HEMOGLOBIN 28 pg (25-35); MEAN CORPUSCULAR HGB CONC 32 g/dL (31-37); MEAN CORPUSCULAR VOLUME 87 fL (79-100); MONO # 0.4 x10^3/uL (0.0-1.1); MONO % 10 % (0-9); NEUT # 2.7 x10^3/uL (1.8-7.7); NEUT % 71 % (31-73); PLATELET COUNT 123 x10^3/uL (140-400); RED BLOOD COUNT 4.16 x10^6/uL (3.50-5.40); RED CELL DISTRIBUTION WIDTH 16.1 % (11.5-14.5); WHITE BLOOD COUNT 3.7 x10^3/uL (4.0-11.0)
[2019-08-24] MEDS: INSULIN LISPRO 300 UNITS/3 ML VIAL. SQ SCH ×3 (08:00→16:44)
--- NOTE | 2019-08-24 08:03 | PDOC ---
PROGRESS NOTES Chief Complaint Chief Complaint Acute hypoxia - with CXR concerning for pulmonary HTN. BIPAP 01/07 now Dysuria - grossly abnormal UA, given empiric antibiotics Alkalosis - possibly from diuresis. I see her elevated BNP, this clinically may be CHF, but looks more like pulmonary HTN and possibly viral pulm infection. Consult pulm Bipolar Disorder - with anxiety and depression. Will check depakote level, cont meds COPD on 2l NCO2 - worsening now. Consult pulm Constipation - cont bowel regimen Diabetes-Type II - sliding scale in house GERD - cont meds High Cholesterol - cont statin Hypertension - cont meds Hypothyroid - will check TSH, cont meds AJ on CPAP - 9cm H2O QHS at SNF. Continue FEN - ADA diet PPX - lovenox DNR/DNI Dispo - inpatient for acute hypoxia History of Present Illness History of Present Illness Ms Hartley is a 63 yo SNF resident, wheelchair bound, w/ PMHx Bipolar Disorder, COPD on 2l NCO2, AJ, Anxiety, Constipation, Diabetes-Type II, GERD, High Cholesterol, Hypertension, Hypothyroid who was brought in by group home staff as she was lethargic with altered mental status and hypoxia. The patient had cough, congestion, fever, with increasing O2 requirements. The patient here was noted to have bilateral pulmonary infiltrate, thought to be congestive heart failure. The patient has been started on vancomycin and meropenem and consult has been requested. The patient is was placed on BiPAP. She nods to say she is feeling okay. She says her breathing is better through nodding. No much communication is possible. According to nursing, there is no nausea, vomiting, diarrhea, fever, chest pain, abdominal pain. Patient seen and examined Discussed with RN Vitals Vitals Vital Signs Date Time Temp Pulse Resp B/P (MAP) Pulse Ox O2 Delivery O2 Flow Rate FiO2 08/24/19 06:01 139/66 (90) 08/24/19 05:53 BiPAP/CPAP 08/24/19 05:19 94 08/24/19 03:20 99.6 79 22 99.6 08/23/19 22:40 5.0 Physical Exam General: Alert, Cooperative, No acute distress Heart: Regular rate, Normal S1, Normal S2 Lungs: Crackles, Other Abdomen: Soft, No tenderness, Other (obese ) Extremities: Other (1+ bilateral LE edema ) Skin: No significant lesion Labs LABS Laboratory Tests Test 08/23/19 12:05 08/23/19 16:15 08/23/19 16:58 08/23/19 20:38 Glucose (Fingerstick) 117 mg/dL (70-99) 110 mg/dL (70-99) 150 mg/dL (70-99) Vancomycin Level Trough 27.0 mcg/mL (10.0-20.0) Vancomycin Last Dose Date 08/23/19 Vancomycin Last Dose Time 0900 Test 08/24/19 01:10 08/24/19 05:30 Creatinine 0.4 mg/dL (0.6-1.0) 0.4 mg/dL (0.6-1.0) Estimated GFR (Cockcroft-Gault) 160.7 160.7 Random Vancomycin Level 13.5 mcg/mL White Blood Count 3.7 x10^3/uL (4.0-11.0) Red Blood Count 4.16 x10^6/uL (3.50-5.40) Hemoglobin 11.6 g/dL (12.0-15.5) Hematocrit 36.0 % (36.0-47.0) Mean Corpuscular Volume 87 fL (79-100) Mean Corpuscular Hemoglobin 28 pg (25-35) Mean Corpuscular Hemoglobin Concent 32 g/dL (31-37) Red Cell Distribution Width 16.1 % (11.5-14.5) Platelet Count 123 x10^3/uL (140-400) Neutrophils (%) (Auto) 71 % (31-73) Lymphocytes (%) (Auto) 16 % (24-48) Monocytes (%) (Auto) 10 % (0-9) Eosinophils (%) (Auto) 2 % (0-3) Basophils (%) (Auto) 0 % (0-3) Neutrophils # (Auto) 2.7 x10^3/uL (1.8-7.7) Lymphocytes # (Auto) 0.6 x10^3/uL (1.0-4.8) Monocytes # (Auto) 0.4 x10^3/uL (0.0-1.1) Eosinophils # (Auto) 0.1 x10^3/uL (0.0-0.7) Basophils # (Auto) 0.0 x10^3/uL (0.0-0.2) Sodium Level 148 mmol/L (136-145) Potassium Level 3.5 mmol/L (3.5-5.1) Chloride Level 105 mmol/L (98-107) Carbon Dioxide Level 43 mmol/L (21-32) Anion Gap 0 (6-14) Blood Urea Nitrogen 8 mg/dL (7-20) Glucose Level 139 mg/dL (70-99) Calcium Level 9.0 mg/dL (8.5-10.1) Magnesium Level 1.7 mg/dL (1.8-2.4) Assessment and Plan Assessmemt and Plan Problems Medical Problems: (1) HCAP (healthcare-associated pneumonia) Status: Acute (2) Hypoxia Status: Acute (3) UTI (urinary tract infection) Status: Acute Comment Review of Relevant I have reviewed the following items katie (where applicable) has been applied. Labs Laboratory Tests Test 08/22/19 09:25 08/22/19 09:38 08/22/19 16:23 08/22/19 20:40 White Blood Count 5.0 x10^3/uL (4.0-11.0) Red Blood Count 4.42 x10^6/uL (3.50-5.40) Hemoglobin 12.4 g/dL (12.0-15.5) Hematocrit 38.5 % (36.0-47.0) Mean Corpuscular Volume 87 fL (79-100) Mean Corpuscular Hemoglobin 28 pg (25-35) Mean Corpuscular Hemoglobin Concent 32 g/dL (31-37) Red Cell Distribution Width 16.5 % (11.5-14.5) Platelet Count 138 x10^3/uL (140-400) Neutrophils (%) (Auto) 66 % (31-73) Lymphocytes (%) (Auto) 23 % (24-48) Monocytes (%) (Auto) 9 % (0-9) Eosinophils (%) (Auto) 3 % (0-3) Basophils (%) (Auto) 0 % (0-3) Neutrophils # (Auto) 3.3 x10^3/uL (1.8-7.7) Lymphocytes # (Auto) 1.1 x10^3/uL (1.0-4.8) Monocytes # (Auto) 0.5 x10^3/uL (0.0-1.1) Eosinophils # (Auto) 0.1 x10^3/uL (0.0-0.7) Basophils # (Auto) 0.0 x10^3/uL (0.0-0.2) Sodium Level 145 mmol/L (136-145) Potassium Level 3.7 mmol/L (3.5-5.1) Chloride Level 104 mmol/L (98-107) Carbon Dioxide Level 36 mmol/L (21-32) Anion Gap 5 (6-14) Blood Urea Nitrogen 11 mg/dL (7-20) Creatinine 0.5 mg/dL (0.6-1.0) Estimated GFR (Cockcroft-Gault) 124.2 BUN/Creatinine Ratio 22 (6-20) Glucose Level 144 mg/dL (70-99) Lactic Acid Level 1.1 mmol/L (0.4-2.0) Calcium Level 9.6 mg/dL (8.5-10.1) Total Bilirubin 0.2 mg/dL (0.2-1.0) Aspartate Amino Transf (AST/SGOT) 21 U/L (15-37) Alanine Aminotransferase (ALT/SGPT) 8 U/L (14-59) Alkaline Phosphatase 67 U/L (46-116) HU-Lnd-Z-Type Natriuretic Peptide 1158 pg/mL (0-124) Total Protein 7.4 g/dL (6.4-8.2) Albumin 2.4 g/dL (3.4-5.0) Albumin/Globulin Ratio 0.5 (1.0-1.7) Procalcitonin < 0.10 ng/mL (0.00-0.10) Urine Collection Type Unknown Urine Color Yellow Urine Clarity Clear Urine pH 7.5 Urine Specific [place] 1.010 Urine Protein Negative mg/dL (NEG-TRACE) Urine Glucose (UA) Negative mg/dL (NEG) Urine Ketones (Stick) Negative mg/dL (NEG) Urine Blood Negative (NEG) Urine Nitrite Negative (NEG) Urine Bilirubin Negative (NEG) Urine Urobilinogen Dipstick 1.0 mg/dL (0.2 mg/dL) Urine Leukocyte Esterase Large (NEG) Urine RBC 3-5 /HPF (0-2) Urine WBC >40 /HPF (0-4) Urine Squamous Epithelial Cells Occ /LPF Urine Bacteria Few /HPF (0-FEW) O2 Saturation 89 % (92-99) Arterial Blood pH 7.35 (7.35-7.45) Arterial Blood pCO2 at Patient Temp 67 mmHg (35-46) Arterial Blood pO2 at Patient Temp 58 mmHg (65-108) Arterial Blood HCO3 36 mmol/L (21-28) Arterial Blood Base Excess 8 mmol/L (-3-3) FiO2 50 Glucose (Fingerstick) 101 mg/dL (70-99) 149 mg/dL (70-99) Test 08/23/19 03:05 08/23/19 07:35 08/23/19 12:05 08/23/19 16:15 White Blood Count 3.3 x10^3/uL (4.0-11.0) Red Blood Count 4.25 x10^6/uL (3.50-5.40) Hemoglobin 12.1 g/dL (12.0-15.5) Hematocrit 36.8 % (36.0-47.0) Mean Corpuscular Volume 87 fL (79-100) Mean Corpuscular Hemoglobin 28 pg (25-35) Mean Corpuscular Hemoglobin Concent 33 g/dL (31-37) Red Cell Distribution Width 16.6 % (11.5-14.5) Platelet Count 131 x10^3/uL (140-400) Neutrophils (%) (Auto) 59 % (31-73) Lymphocytes (%) (Auto) 21 % (24-48) Monocytes (%) (Auto) 13 % (0-9) Eosinophils (%) (Auto) 7 % (0-3) Basophils (%) (Auto) 1 % (0-3) Neutrophils # (Auto) 1.9 x10^3/uL (1.8-7.7) Lymphocytes # (Auto) 0.7 x10^3/uL (1.0-4.8) Monocytes # (Auto) 0.4 x10^3/uL (0.0-1.1) Eosinophils # (Auto) 0.2 x10^3/uL (0.0-0.7) Basophils # (Auto) 0.0 x10^3/uL (0.0-0.2) Segmented Neutrophils % 57 % (35-66) Band Neutrophils % 8 % (0-9) Lymphocytes % 18 % (24-48) Monocytes % 8 % (0-10) Eosinophils % 8 % (0-5) Myelocytes % 1 % (0-0) Platelet Estimate Decreased (ADEQUATE) Polychromasia Slight Hypochromasia Slight Basophilic Stippling Anisocytosis Slight Sodium Level 147 mmol/L (136-145) Potassium Level 3.1 mmol/L (3.5-5.1) Chloride Level 104 mmol/L (98-107) Carbon Dioxide Level 39 mmol/L (21-32) Anion Gap 4 (6-14) Blood Urea Nitrogen 11 mg/dL (7-20) Creatinine 0.5 mg/dL (0.6-1.0) Estimated GFR (Cockcroft-Gault) 124.2 BUN/Creatinine Ratio 22 (6-20) Glucose Level 124 mg/dL (70-99) Calcium Level 9.4 mg/dL (8.5-10.1) Magnesium Level 1.5 mg/dL (1.8-2.4) Total Bilirubin 0.3 mg/dL (0.2-1.0) Aspartate Amino Transf (AST/SGOT) 17 U/L (15-37) Alanine Aminotransferase (ALT/SGPT) 8 U/L (14-59) Alkaline Phosphatase 64 U/L (46-116) Total Protein 7.2 g/dL (6.4-8.2) Albumin 2.3 g/dL (3.4-5.0) Albumin/Globulin Ratio 0.5 (1.0-1.7) Triglycerides Level 149 mg/dL (0-150) Cholesterol Level 200 mg/dL (0-200) LDL Cholesterol, Calculated 128 mg/dL (0-100) VLDL Cholesterol, Calculated 30 mg/dL (0-40) Non-HDL Cholesterol Calculated 158 mg/dL (0-129) HDL Cholesterol 42 mg/dL (40-60) Cholesterol/HDL Ratio 4.8 Glucose (Fingerstick) 124 mg/dL (70-99) 117 mg/dL (70-99) Vancomycin Level Trough 27.0 mcg/mL (10.0-20.0) Vancomycin Last Dose Date 08/23/19 Vancomycin Last Dose Time 0900 Test 08/23/19 16:58 08/23/19 20:38 08/24/19 01:10 08/24/19 05:30 Glucose (Fingerstick) 110 mg/dL (70-99) 150 mg/dL (70-99) Creatinine 0.4 mg/dL (0.6-1.0) 0.4 mg/dL (0.6-1.0) Estimated GFR (Cockcroft-Gault) 160.7 160.7 Random Vancomycin Level 13.5 mcg/mL White Blood Count 3.7 x10^3/uL (4.0-11.0) Red Blood Count 4.16 x10^6/uL (3.50-5.40) Hemoglobin 11.6 g/dL (12.0-15.5) Hematocrit 36.0 % (36.0-47.0) Mean Corpuscular Volume 87 fL (79-100) Mean Corpuscular Hemoglobin 28 pg (25-35) Mean Corpuscular Hemoglobin Concent 32 g/dL (31-37) Red Cell Distribution Width 16.1 % (11.5-14.5) Platelet Count 123 x10^3/uL (140-400) Neutrophils (%) (Auto) 71 % (31-73) Lymphocytes (%) (Auto) 16 % (24-48) Monocytes (%) (Auto) 10 % (0-9) Eosinophils (%) (Auto) 2 % (0-3) Basophils (%) (Auto) 0 % (0-3) Neutrophils # (Auto) 2.7 x10^3/uL (1.8-7.7) Lymphocytes # (Auto) 0.6 x10^3/uL (1.0-4.8) Monocytes # (Auto) 0.4 x10^3/uL (0.0-1.1) Eosinophils # (Auto) 0.1 x10^3/uL (0.0-0.7) Basophils # (Auto) 0.0 x10^3/uL (0.0-0.2) Sodium Level 148 mmol/L (136-145) Potassium Level 3.5 mmol/L (3.5-5.1) Chloride Level 105 mmol/L (98-107) Carbon Dioxide Level 43 mmol/L (21-32) Anion Gap 0 (6-14) Blood Urea Nitrogen 8 mg/dL (7-20) Glucose Level 139 mg/dL (70-99) Calcium Level 9.0 mg/dL (8.5-10.1) Magnesium Level 1.7 mg/dL (1.8-2.4) Laboratory Tests Test 08/23/19 12:05 08/23/19 16:15 08/23/19 16:58 08/23/19 20:38 Glucose (Fingerstick) 117 mg/dL (70-99) 110 mg/dL (70-99) 150 mg/dL (70-99) Vancomycin Level Trough 27.0 mcg/mL (10.0-20.0) Vancomycin Last Dose Date 08/23/19 Vancomycin Last Dose Time 0900 Test 08/24/19 01:10 08/24/19 05:30 Creatinine 0.4 mg/dL (0.6-1.0) 0.4 mg/dL (0.6-1.0) Estimated GFR (Cockcroft-Gault) 160.7 160.7 Random Vancomycin Level 13.5 mcg/mL White Blood Count 3.7 x10^3/uL (4.0-11.0) Red Blood Count 4.16 x10^6/uL (3.50-5.40) Hemoglobin 11.6 g/dL (12.0-15.5) Hematocrit 36.0 % (36.0-47.0) Mean Corpuscular Volume 87 fL (79-100) Mean Corpuscular Hemoglobin 28 pg (25-35) Mean Corpuscular Hemoglobin Concent 32 g/dL (31-37) Red Cell Distribution Width 16.1 % (11.5-14.5) Platelet Count 123 x10^3/uL (140-400) Neutrophils (%) (Auto) 71 % (31-73) Lymphocytes (%) (Auto) 16 % (24-48) Monocytes (%) (Auto) 10 % (0-9) Eosinophils (%) (Auto) 2 % (0-3) Basophils (%) (Auto) 0 % (0-3) Neutrophils # (Auto) 2.7 x10^3/uL (1.8-7.7) Lymphocytes # (Auto) 0.6 x10^3/uL (1.0-4.8) Monocytes # (Auto) 0.4 x10^3/uL (0.0-1.1) Eosinophils # (Auto) 0.1 x10^3/uL (0.0-0.7) Basophils # (Auto) 0.0 x10^3/uL (0.0-0.2) Sodium Level 148 mmol/L (136-145) Potassium Level 3.5 mmol/L (3.5-5.1) Chloride Level 105 mmol/L (98-107) Carbon Dioxide Level 43 mmol/L (21-32) Anion Gap 0 (6-14) Blood Urea Nitrogen 8 mg/dL (7-20) Glucose Level 139 mg/dL (70-99) Calcium Level 9.0 mg/dL (8.5-10.1) Magnesium Level 1.7 mg/dL (1.8-2.4) Microbiology 08/22/19 Urine Culture - Final, Complete 08/22/19 Urine Culture Result 1 (RITA) - Final, Complete 08/22/19 Blood Culture - Preliminary, Resulted NO GROWTH AFTER 1 DAY Medications Current Medications Aztreonam (Azactam) 2 gm 1X ONCE IVP Last administered on 08/22/19at 10:07; Start 08/22/19 at 10:00; Stop 08/22/19 at 10:01; Status DC Sodium Chloride 1,000 ml @ 1,860 mls/hr Q33M IV Last administered on 08/22/19at 09:54; Start 08/22/19 at 10:00; Stop 08/22/19 at 11:00; Status DC Vancomycin HCl (Vanco Per Pharmacy) 1 each PRN DAILY PRN MC SEE COMMENTS Last administered on 08/22/19at 17:02; Start 08/22/19 at 09:30; Stop 08/23/19 at 07:47; Status DC Albuterol/ Ipratropium (Duoneb) 3 ml 1X ONCE NEB Last administered on 08/22/19at 09:51; Start 08/22/19 at 10:00; Stop 08/22/19 at 10:01; Status DC Vancomycin HCl 1.5 gm/Sodium Chloride 500 ml @ 250 mls/hr 1X ONCE IV Last administered on 08/22/19at 10:10; Start 08/22/19 at 10:00; Stop 08/22/19 at 11:59; Status DC Iohexol (Omnipaque 350 Mg/ml) 90 ml 1X ONCE IV Last administered on 08/22/19at 11:13; Start 08/22/19 at 11:00; Stop 08/22/19 at 11:01; Status DC Info (CONTRAST GIVEN -- Rx MONITORING) 1 each PRN DAILY PRN MC SEE COMMENTS; Start 08/22/19 at 11:00; Stop 08/24/19 at 10:59 Ondansetron HCl (Zofran) 4 mg PRN Q8HRS PRN IV NAUSEA/VOMITING; Start 08/22/19 at 11:45; Stop 08/22/19 at 12:29; Status DC Acetaminophen (Tylenol) 650 mg PRN Q4HRS PRN PO FEVER; Start 08/22/19 at 11:45; Stop 08/23/19 at 11:44; Status DC Albuterol/ Ipratropium (Duoneb) 3 ml RTQID NEB Last administered on 08/23/19at 08:33; Start 08/22/19 at 12:00; Stop 08/23/19 at 11:59; Status DC Vancomycin HCl 500 mg/Sodium Chloride 100 ml @ 100 mls/hr 1X ONCE IV Last administered on 08/22/19at 16:22; Start 08/22/19 at 12:30; Stop 08/22/19 at 13:29; Status DC Ondansetron HCl (Zofran) 4 mg PRN Q6HRS PRN IV NAUSEA/VOMITING; Start 08/22/19 at 12:30 Meropenem 1 gm/ Sodium Chloride 100 ml @ 200 mls/hr Q8HRS IV Last administered on 08/24/19at 05:54; Start 08/22/19 at 14:00 Acetaminophen (Tylenol) 1,000 mg DAILY PO Last administered on 08/23/19at 08:29; Start 08/22/19 at 13:00 Albuterol Sulfate (Ventolin Neb Soln) 2.5 mg RTQID NEB Last administered on 08/22/19at 15:41; Start 08/22/19 at 13:00; Stop 08/22/19 at 20:20; Status DC Amlodipine Besylate (Norvasc) 5 mg DAILY PO ; Start 08/22/19 at 13:00; Stop 08/22/19 at 15:56; Status DC Budesonide (Pulmicort) 0.5 mg RTBID NEB ; Start 08/22/19 at 13:00; Stop 08/22/19 at 15:56; Status DC Vitamin D (Vitamin D3) 5,000 unit WEEKLY PO ; Start 08/29/19 at 09:00 Divalproex Sodium (Depakote Er) 500 mg DAILY PO Last administered on 08/23/19at 08:30; Start 08/22/19 at 13:00 Divalproex Sodium (Depakote Er) 1,000 mg QHS PO ; Start 08/22/19 at 21:00; Status Cancel Docusate Sodium (Colace) 100 mg BID PO Last administered on 08/23/19 20:47; Start 08/22/19 at 13:00 Enoxaparin Sodium (Lovenox 60mg Syringe) 60 mg Q12HR SQ ; Start 08/22/19 at 21:00; Status Cancel Furosemide (Lasix) 20 mg DAILY PO ; Start 08/22/19 at 13:00; Stop 08/22/19 at 13:26; Status DC Insulin Human Lispro (HumaLOG) TIDWMEALS SQ ; Start 08/22/19 at 13:00; Status Cancel Lactobacillus Rhamnosus (Culturelle) 1 cap BID PO Last administered on 08/23/19 20:48; Start 08/22/19 at 13:00 Levothyroxine Sodium (Synthroid) 175 mcg DAILY06 PO Last administered on 08/24/19at 05:53; Start 08/22/19 at 13:00 Pilocarpine HCl (Salagen) 10 mg TID PO Last administered on 08/23/19 20:47; Start 08/22/19 at 14:00 Polyethylene Glycol (miraLAX PACKET) 17 gm DAILY PRN PO CONSTIPATION; Start 08/22/19 at 12:30 Pregabalin (Lyrica) 75 mg TID PO Last administered on 08/23/19 20:48; Start 08/22/19 at 14:00 Risperidone (RisperDAL) 1 mg QHS PO Last administered on 08/23/19 20:47; Start 08/22/19 at 21:00 Tramadol HCl (Ultram) 75 mg PRN TID PRN PO PAIN; Start 08/22/19 at 12:30; Status Cancel Trazodone HCl (Desyrel) 50 mg QHS PO Last administered on 10/14/19at 20:48; Start 08/22/19 at 21:00 Artificial Tears (Artificial Tears) 1 drop PRN Q15MIN PRN OU DRY EYE; Start 08/22/19 at 12:45 Non-Formulary Medication (Lifitegrast (Xiidra)) 1 each BID OP ; Start 08/22/19 at 21:00; Status UNV Cetirizine HCl (ZyrTEC) 10 mg DAILY PO Last administered on 08/23/19at 08:29; Start 08/22/19 at 13:00 Meclizine HCl (Antivert) 25 mg TID PO ; Start 08/22/19 at 14:00; Status Cancel Multi-Ingredient Ointment (Analgesic [place]) 1 kashif TID TP Last administered on 08/23/19at 20:48; Start 08/22/19 at 14:00 Pantoprazole Sodium (Protonix) 40 mg DAILYAC PO ; Start 08/22/19 at 13:00; Status Cancel Potassium Chloride (Klor-Con) 20 meq DAILYWBKFT PO ; Start 08/22/19 at 13:00; Stop 08/22/19 at 13:31; Status DC Fentanyl Citrate (Fentanyl 2ml Vial) 50 mcg PRN Q2HR PRN IVP PAIN; Start 08/22/19 at 12:30 Tramadol HCl (Ultram) 50 mg PRN Q6HRS PRN PO PAIN; Start 08/22/19 at 12:30; Status Cancel Insulin Human Lispro (HumaLOG) 0-9 UNITS TIDWMEALS SQ ; Start 08/22/19 at 17:00 Dextrose (Dextrose 50%-Water Syringe) 12.5 gm PRN Q15MIN PRN IV SEE COMMENTS; Start 08/22/19 at 12:30 Furosemide (Lasix) 60 mg 1X ONCE IVP Last administered on 08/22/19at 16:21; Start 08/22/19 at 14:00; Stop 08/22/19 at 14:01; Status DC Furosemide (Lasix) 40 mg BID92 IVP Last administered on 08/23/19at 15:15; Start 08/23/19 at 14:00 Potassium Chloride (Klor-Con) 40 meq DAILYWBKFT PO Last administered on 08/23/19at 08:29; Start 08/23/19 at 08:00 Amlodipine Besylate (Norvasc) 10 mg DAILY PO Last administered on 08/23/19 08:27; Start 08/23/19 at 09:00 Buspirone HCl (Buspar) 2.5 mg BID PO Last administered on 08/23/19 20:47; Start 08/22/19 at 21:00 Divalproex Sodium (Depakote Er) 1,250 mg HS PO Last administered on 08/23/19 20:47; Start 08/22/19 at 21:00 Non-Formulary Medication (Dimethicone (Cavilon Durable Barrier)) 92 gm DAILY TP ; Start 08/23/19 at 09:00; Status UNV Rivaroxaban (Xarelto) 20 mg QPM PO Last administered on 08/23/19 17:42; Start 08/22/19 at 18:00 Tramadol HCl (Ultram) 100 mg Q6HRS PO Last administered on 08/24/19 05:53; Start 08/22/19 at 18:00 Vancomycin HCl 1.5 gm/Sodium Chloride 500 ml @ 250 mls/hr Q8H IV Last administered on 08/22/19 23:37; Start 08/23/19 at 00:00; Stop 08/23/19 at 07:42; Status DC Vancomycin HCl (Vancomycin Trough Level) 1 each 1X ONCE MC ; Start 08/23/19 at 15:30; Stop 08/23/19 at 07:48; Status DC Influenza Virus Vaccine Quadrival (Afluria Quad 2019-20 (3yr Up) Syringe) 0.5 ml ONCE ONCE VAX IM Last administered on 08/23/19 10:56; Start 08/22/19 at 21:00; Stop 08/22/19 at 21:01; Status DC Albuterol Sulfate (Ventolin Neb Soln) 2.5 mg PRN Q4HRS PRN NEB SHORTNESS OF BREATH Last administered on 08/23/19 19:38; Start 08/22/19 at 20:30 Vancomycin HCl (Vanco Per Pharmacy) 1 each PRN DAILY PRN MC SEE COMMENTS Last administered on 08/24/19 03:03; Start 08/23/19 at 09:00 Vancomycin HCl 1.5 gm/Sodium Chloride 500 ml @ 250 mls/hr Q8H IV Last administered on 10/14/19at 09:37; Start 08/23/19 at 09:00; Stop 08/23/19 at 17:34; Status DC Vancomycin HCl (Vancomycin Trough Level) 1 each 1X ONCE MC Last administered on 08/23/19at 16:30; Start 08/23/19 at 16:30; Stop 08/23/19 at 16:31; Status DC Albuterol/ Ipratropium (Duoneb) 3 ml STK-MED ONCE .ROUTE ; Start 08/23/19 at 16:10; Stop 08/23/19 at 16:10; Status DC Magnesium Sulfate 50 ml @ 25 mls/hr 1X ONCE IV Last administered on 08/23/19at 16:48; Start 08/23/19 at 16:30; Stop 08/23/19 at 18:29; Status DC Vancomycin HCl (Vancomycin Random Level) 1 each 1X ONCE MC Last administered on 08/24/19at 00:30; Start 08/24/19 at 00:30; Stop 08/24/19 at 00:31; Status DC Vancomycin HCl 1.5 gm/Sodium Chloride 500 ml @ 250 mls/hr Q12H IV Last administered on 08/24/19at 02:25; Start 08/24/19 at 02:00 Vancomycin HCl (Vancomycin Trough Level) 1 each 1X ONCE MC ; Start 08/25/19 at 13:30; Stop 08/25/19 at 13:31 Nitroglycerin/ Dextrose 250 ml @ 1.5 mls/hr CONT PRN IV SEE I/O RECORD Last administered on 08/24/19at 04:31; Start 08/24/19 at 04:15 Active Scripts Active Humalog (Insulin Lispro) 100 Unit/1 Ml Insuln.pen 0 Units SQ TIDWMEALS 14 Days Culturelle (Lactobacillus Rhamnosus Gg) 1 Each Cap.sprink 1 Cap PO BID 30 Days [Acetazolamide Sodium] 500 MG Vial 500 Mg IVP DAILY 14 Days Reported Depakote (Divalproex Sodium) 500 Mg Tablet.dr 1,250 Mg PO HS Xarelto (Rivaroxaban) 20 Mg Tablet 20 Mg PO DAILY Cavilon Durable Barrier (Dimethicone) 92 Gm Cream..g. 92 Gm TP DAILY Buspirone Hcl 5 Mg Tablet 2.5 Mg PO BID Tramadol Hcl 100 Mg Tab.er.24h 100 Mg PO Q6HRS Amlodipine Besylate 10 Mg Tablet 10 Mg PO DAILY Vitamin D (Cholecalciferol (Vitamin D3)) 5,000 Unit Capsule 5,000 Unit PO WEEKLY Tylenol Extra Strength (Acetaminophen) 500 Mg Tablet 2 Mg PO DAILY Trazodone Hcl 50 Mg Tablet 1 Tab PO QHS Risperdal (Risperidone) 1 Mg Tablet 1 Mg PO QHS Proventil Hfa Inhaler (Albuterol Sulfate) 6.7 Gm Hfa.aer.ad 1 Puff IH PRN Q4HRS PRN Potassium Chloride 20 Meq Tablet.er 20 Meq PO DAILY Miralax (Polyethylene Glycol 3350) 17 Gm Powd.pack 1 Packet PO DAILY PRN Pilocarpine Hcl 5 Mg Tablet 10 Mg PO TID Lyrica (Pregabalin) 75 Mg Capsule 1 Cap PO TID Levothyroxine Sodium 175 Mcg Tablet 1 Tab PO DAILY Divalproex Sodium Er (Divalproex Sodium) 500 Mg Tab.er.24h 1 Tab PO DAILY Colace (Docusate Sodium) 100 Mg Capsule 1 Cap PO BID Biofreeze (Menthol) 118 Ml Gel..ml. 118 Ml TP TID Albuterol Sulfate Neb Soln (Albuterol Sulfate) 2.5 Mg/3 Ml Vial.neb 1 Vial NEB PRN Q4HRS Vitals/I & O Vital Sign - Last 24 Hours 08/23/19 08/23/19 08/23/19 08/23/19 08:27 08:33 10:43 12:27 Temp 99.5 99.5 Pulse 84 79 Resp 22 B/P (MAP) 139/75 111/52 (71) Pulse Ox 93 94 92 O2 Delivery Nasal Cannula Nasal Cannula Nasal Cannula O2 Flow Rate 4.0 5.0 4.0 08/23/19 08/23/19 08/23/19 08/23/19 13:19 14:42 16:45 17:43 Temp 99.1 99.1 Pulse 77 Resp 22 B/P (MAP) 117/57 (77) Pulse Ox 92 90 92 92 O2 Delivery Nasal Cannula Nasal Cannula Nasal Cannula Nasal Cannula O2 Flow Rate 4.0 5.0 4.0 3.0 08/23/19 08/23/19 08/23/19 08/23/19 18:45 19:20 19:38 19:52 Temp 99.8 99.8 Pulse 84 Resp 20 B/P (MAP) 171/76 (107) Pulse Ox 92 95 90 O2 Delivery Nasal Cannula Nasal Cannula Nasal Cannula Nasal Cannula O2 Flow Rate 3.0 3.0 4.0 2.0 08/23/19 08/23/19 08/23/19 08/24/19 19:54 22:40 23:50 00:55 Temp 99.3 99.3 Pulse 89 Resp 22 B/P (MAP) 140/68 (92) Pulse Ox 98 93 90 O2 Delivery BiPAP/CPAP Nasal Cannula BiPAP/CPAP BiPAP/CPAP O2 Flow Rate 5.0 08/24/19 08/24/19 08/24/19 08/24/19 01:55 02:34 03:20 04:16 Temp 99.6 99.6 Pulse 79 Resp 22 B/P (MAP) 170/81 (110) 146/81 (102) Pulse Ox 97 98 O2 Delivery BiPAP/CPAP BiPAP/CPAP BiPAP/CPAP 08/24/19 08/24/19 08/24/19 08/24/19 04:31 05:01 05:19 05:31 B/P (MAP) 151/80 (103) 150/84 (106) 148/80 (102) Pulse Ox 94 O2 Delivery BiPAP/CPAP 08/24/19 08/24/19 05:53 06:01 B/P (MAP) 139/66 (90) O2 Delivery BiPAP/CPAP Intake and Output 08/23/19 08/23/19 08/24/19 15:00 23:00 07:00 Intake Total 720 ml 340 ml 900 ml Output Total 900 ml 450 ml Balance 720 ml -560 ml 450 ml COLETTE SCHERER MD Aug 24, 2019 08:03
[2019-08-24] MEDS: ALBUTEROL SULFATE 2.5 MG/3 ML NEBU. NEB PRN (08:22)
--- NOTE | 2019-08-24 08:43 | CARD ---
MR#: [id number] Date of Study: 08/23/2019 Ordering Physician: CRISTA NIETO, Referring Physician: CRISTA NIETO, Tech: Kathryn Young APPROVED REPORT EXAM: Two-dimensional and M-mode echocardiogram with Doppler and color Doppler. Other Information Quality : AverageHR: 82bpm INDICATION COPD Dyspnea Congestive Heart Failure RISK FACTORS Hypertension Hyperlipidemia Diabetes 2D DIMENSIONS RVDd4.0 (2.9-3.5cm)Left Atrium(2D)4.8 (1.6-4.0cm) IVSd1.2 (0.7-1.1cm)Aortic Root(2D)3.1 (2.0-3.7cm) LVDd5.4 (3.9-5.9cm)LVOT Diameter2.2 (1.8-2.4cm) PWd1.4 (0.7-1.1cm)LVDs3.3 (2.5-4.0cm) FS (%) 38.7 %SV97.0 ml LVEF(%)68.5 (>50%) Aortic Valve AoV Peak Chace.154.5cm/sAoV VTI29.8cm AO Peak GR.9.5mmHgLVOT VTI 22.09cm AO Mean GR.6mmHg Mitral Valve MV E Sywzfwjs73.2cm/sMV DECEL BMQU139bl MV A Rrtepkrt28.3cm/sE/A Ratio0.9 TDI Lateral E' P. V13.52cm/sMedial E' P. V7.47cm/s E/Lateral E'5.4E/Medial E'9.8 Tricuspid Valve TR P. Vofsdeqq822wt/sRAP [id number] TR Peak Gr.81auTbTZJY06qdLz Pulmonary Vein S1 Ezuhniwe53.9cm/sS2 Uybncryh63.43cm/s D2 Hrbuueyn04.4cm/sPVa [id number] LEFT VENTRICLE The left ventricle is normal size. There is mild to moderate concentric left ventricular hypertrophy. The left ventricular systolic function is normal. The Ejection Fraction is 55-60%. There is normal L V segmental wall motion. Transmitral Doppler flow pattern is Grade I-abnormal relaxation pattern. RIGHT VENTRICLE The right ventricle is normal size. There is normal right ventricular wall thickness. The right ventr icular systolic function is normal. ATRIA The left atrium is borderline dilated. The right atrium is borderline dilated. The interatrial septum is intact with no evidence for an atrial septal defect or patent foramen ovale as noted on 2-D or Do ppler imaging. AORTIC VALVE The aortic valve is calcified but opens well. Doppler and Color Flow revealed no significant aortic r egurgitation. There is no significant aortic valvular stenosis. MITRAL VALVE The mitral valve is normal in structure and function. There is no evidence of mitral valve prolapse. There is no mitral valve stenosis. Doppler and Color-flow revealed trace mitral regurgitation. TRICUSPID VALVE The tricuspid valve is not well visualized. Doppler and Color Flow revealed trace tricuspid regurgita tion with an estimated PAP of 52 mmHg. There is no tricuspid valve stenosis. PULMONIC VALVE The pulmonary valve is normal in structure and function. Doppler and Color Flow revealed trace pulmon ic valvular regurgitation. GREAT VESSELS The aortic root is normal in size. The IVC is dilated and collapses >50% with inspiration. PERICARDIAL EFFUSION There is no evidence of significant pericardial effusion. Critical Notification Critical Value: No <Conclusion> The left ventricular systolic function is normal. The Ejection Fraction is 55-60%. There is normal LV segmental wall motion. Transmitral Doppler flow pattern is Grade I-abnormal relaxation pattern. Trace mitral regurgitation. Trace tricuspid regurgitation with an estimated PAP of 52 mmHg. There is no evidence of significant pericardial effusion. Signed by : Nathan Francis, Electronically Approved : 08/24/2019 08:42:55
--- NOTE | 2019-08-24 08:47 | PDOC ---
PULMONARY PROGRESS NOTES Subjective PT ON BIPAP Vitals Vital Signs Date Time Temp Pulse Resp B/P (MAP) Pulse Ox O2 Delivery O2 Flow Rate FiO2 08/24/19 08:18 92 BiPAP/CPAP 08/24/19 06:01 139/66 (90) 08/24/19 03:20 99.6 79 22 99.6 08/23/19 22:40 5.0 General: Alert Lungs: Crackles Cardiovascular: S1, S2 Abdomen: Soft, Other Extremities: Other (EDEMA) Skin: Warm Labs Laboratory Tests Test 08/22/19 09:25 08/22/19 09:38 08/22/19 16:23 08/22/19 20:40 White Blood Count 5.0 x10^3/uL (4.0-11.0) Red Blood Count 4.42 x10^6/uL (3.50-5.40) Hemoglobin 12.4 g/dL (12.0-15.5) Hematocrit 38.5 % (36.0-47.0) Mean Corpuscular Volume 87 fL (79-100) Mean Corpuscular Hemoglobin 28 pg (25-35) Mean Corpuscular Hemoglobin Concent 32 g/dL (31-37) Red Cell Distribution Width 16.5 % (11.5-14.5) Platelet Count 138 x10^3/uL (140-400) Neutrophils (%) (Auto) 66 % (31-73) Lymphocytes (%) (Auto) 23 % (24-48) Monocytes (%) (Auto) 9 % (0-9) Eosinophils (%) (Auto) 3 % (0-3) Basophils (%) (Auto) 0 % (0-3) Neutrophils # (Auto) 3.3 x10^3/uL (1.8-7.7) Lymphocytes # (Auto) 1.1 x10^3/uL (1.0-4.8) Monocytes # (Auto) 0.5 x10^3/uL (0.0-1.1) Eosinophils # (Auto) 0.1 x10^3/uL (0.0-0.7) Basophils # (Auto) 0.0 x10^3/uL (0.0-0.2) Sodium Level 145 mmol/L (136-145) Potassium Level 3.7 mmol/L (3.5-5.1) Chloride Level 104 mmol/L (98-107) Carbon Dioxide Level 36 mmol/L (21-32) Anion Gap 5 (6-14) Blood Urea Nitrogen 11 mg/dL (7-20) Creatinine 0.5 mg/dL (0.6-1.0) Estimated GFR (Cockcroft-Gault) 124.2 BUN/Creatinine Ratio 22 (6-20) Glucose Level 144 mg/dL (70-99) Lactic Acid Level 1.1 mmol/L (0.4-2.0) Calcium Level 9.6 mg/dL (8.5-10.1) Total Bilirubin 0.2 mg/dL (0.2-1.0) Aspartate Amino Transf (AST/SGOT) 21 U/L (15-37) Alanine Aminotransferase (ALT/SGPT) 8 U/L (14-59) Alkaline Phosphatase 67 U/L (46-116) BL-Rkt-W-Type Natriuretic Peptide 1158 pg/mL (0-124) Total Protein 7.4 g/dL (6.4-8.2) Albumin 2.4 g/dL (3.4-5.0) Albumin/Globulin Ratio 0.5 (1.0-1.7) Procalcitonin < 0.10 ng/mL (0.00-0.10) Urine Collection Type Unknown Urine Color Yellow Urine Clarity Clear Urine pH 7.5 Urine Specific Hodgen 1.010 Urine Protein Negative mg/dL (NEG-TRACE) Urine Glucose (UA) Negative mg/dL (NEG) Urine Ketones (Stick) Negative mg/dL (NEG) Urine Blood Negative (NEG) Urine Nitrite Negative (NEG) Urine Bilirubin Negative (NEG) Urine Urobilinogen Dipstick 1.0 mg/dL (0.2 mg/dL) Urine Leukocyte Esterase Large (NEG) Urine RBC 3-5 /HPF (0-2) Urine WBC >40 /HPF (0-4) Urine Squamous Epithelial Cells Occ /LPF Urine Bacteria Few /HPF (0-FEW) O2 Saturation 89 % (92-99) Arterial Blood pH 7.35 (7.35-7.45) Arterial Blood pCO2 at Patient Temp 67 mmHg (35-46) Arterial Blood pO2 at Patient Temp 58 mmHg (65-108) Arterial Blood HCO3 36 mmol/L (21-28) Arterial Blood Base Excess 8 mmol/L (-3-3) FiO2 50 Glucose (Fingerstick) 101 mg/dL (70-99) 149 mg/dL (70-99) Test 08/23/19 03:05 08/23/19 07:35 08/23/19 12:05 08/23/19 16:15 White Blood Count 3.3 x10^3/uL (4.0-11.0) Red Blood Count 4.25 x10^6/uL (3.50-5.40) Hemoglobin 12.1 g/dL (12.0-15.5) Hematocrit 36.8 % (36.0-47.0) Mean Corpuscular Volume 87 fL (79-100) Mean Corpuscular Hemoglobin 28 pg (25-35) Mean Corpuscular Hemoglobin Concent 33 g/dL (31-37) Red Cell Distribution Width 16.6 % (11.5-14.5) Platelet Count 131 x10^3/uL (140-400) Neutrophils (%) (Auto) 59 % (31-73) Lymphocytes (%) (Auto) 21 % (24-48) Monocytes (%) (Auto) 13 % (0-9) Eosinophils (%) (Auto) 7 % (0-3) Basophils (%) (Auto) 1 % (0-3) Neutrophils # (Auto) 1.9 x10^3/uL (1.8-7.7) Lymphocytes # (Auto) 0.7 x10^3/uL (1.0-4.8) Monocytes # (Auto) 0.4 x10^3/uL (0.0-1.1) Eosinophils # (Auto) 0.2 x10^3/uL (0.0-0.7) Basophils # (Auto) 0.0 x10^3/uL (0.0-0.2) Segmented Neutrophils % 57 % (35-66) Band Neutrophils % 8 % (0-9) Lymphocytes % 18 % (24-48) Monocytes % 8 % (0-10) Eosinophils % 8 % (0-5) Myelocytes % 1 % (0-0) Platelet Estimate Decreased (ADEQUATE) Polychromasia Slight Hypochromasia Slight Basophilic Stippling Anisocytosis Slight Sodium Level 147 mmol/L (136-145) Potassium Level 3.1 mmol/L (3.5-5.1) Chloride Level 104 mmol/L (98-107) Carbon Dioxide Level 39 mmol/L (21-32) Anion Gap 4 (6-14) Blood Urea Nitrogen 11 mg/dL (7-20) Creatinine 0.5 mg/dL (0.6-1.0) Estimated GFR (Cockcroft-Gault) 124.2 BUN/Creatinine Ratio 22 (6-20) Glucose Level 124 mg/dL (70-99) Calcium Level 9.4 mg/dL (8.5-10.1) Magnesium Level 1.5 mg/dL (1.8-2.4) Total Bilirubin 0.3 mg/dL (0.2-1.0) Aspartate Amino Transf (AST/SGOT) 17 U/L (15-37) Alanine Aminotransferase (ALT/SGPT) 8 U/L (14-59) Alkaline Phosphatase 64 U/L (46-116) Total Protein 7.2 g/dL (6.4-8.2) Albumin 2.3 g/dL (3.4-5.0) Albumin/Globulin Ratio 0.5 (1.0-1.7) Triglycerides Level 149 mg/dL (0-150) Cholesterol Level 200 mg/dL (0-200) LDL Cholesterol, Calculated 128 mg/dL (0-100) VLDL Cholesterol, Calculated 30 mg/dL (0-40) Non-HDL Cholesterol Calculated 158 mg/dL (0-129) HDL Cholesterol 42 mg/dL (40-60) Cholesterol/HDL Ratio 4.8 Glucose (Fingerstick) 124 mg/dL (70-99) 117 mg/dL (70-99) Vancomycin Level Trough 27.0 mcg/mL (10.0-20.0) Vancomycin Last Dose Date 08/23/19 Vancomycin Last Dose Time 0900 Test 08/23/19 16:58 08/23/19 20:38 08/24/19 01:10 08/24/19 05:30 Glucose (Fingerstick) 110 mg/dL (70-99) 150 mg/dL (70-99) Creatinine 0.4 mg/dL (0.6-1.0) 0.4 mg/dL (0.6-1.0) Estimated GFR (Cockcroft-Gault) 160.7 160.7 Random Vancomycin Level 13.5 mcg/mL White Blood Count 3.7 x10^3/uL (4.0-11.0) Red Blood Count 4.16 x10^6/uL (3.50-5.40) Hemoglobin 11.6 g/dL (12.0-15.5) Hematocrit 36.0 % (36.0-47.0) Mean Corpuscular Volume 87 fL (79-100) Mean Corpuscular Hemoglobin 28 pg (25-35) Mean Corpuscular Hemoglobin Concent 32 g/dL (31-37) Red Cell Distribution Width 16.1 % (11.5-14.5) Platelet Count 123 x10^3/uL (140-400) Neutrophils (%) (Auto) 71 % (31-73) Lymphocytes (%) (Auto) 16 % (24-48) Monocytes (%) (Auto) 10 % (0-9) Eosinophils (%) (Auto) 2 % (0-3) Basophils (%) (Auto) 0 % (0-3) Neutrophils # (Auto) 2.7 x10^3/uL (1.8-7.7) Lymphocytes # (Auto) 0.6 x10^3/uL (1.0-4.8) Monocytes # (Auto) 0.4 x10^3/uL (0.0-1.1) Eosinophils # (Auto) 0.1 x10^3/uL (0.0-0.7) Basophils # (Auto) 0.0 x10^3/uL (0.0-0.2) Sodium Level 148 mmol/L (136-145) Potassium Level 3.5 mmol/L (3.5-5.1) Chloride Level 105 mmol/L (98-107) Carbon Dioxide Level 43 mmol/L (21-32) Anion Gap 0 (6-14) Blood Urea Nitrogen 8 mg/dL (7-20) Glucose Level 139 mg/dL (70-99) Calcium Level 9.0 mg/dL (8.5-10.1) Magnesium Level 1.7 mg/dL (1.8-2.4) Test 08/24/19 08:26 Glucose (Fingerstick) 127 mg/dL (70-99) Laboratory Tests Test 08/23/19 12:05 08/23/19 16:15 08/23/19 16:58 08/23/19 20:38 Glucose (Fingerstick) 117 mg/dL (70-99) 110 mg/dL (70-99) 150 mg/dL (70-99) Vancomycin Level Trough 27.0 mcg/mL (10.0-20.0) Vancomycin Last Dose Date 08/23/19 Vancomycin Last Dose Time 0900 Test 08/24/19 01:10 08/24/19 05:30 08/24/19 08:26 Creatinine 0.4 mg/dL (0.6-1.0) 0.4 mg/dL (0.6-1.0) Estimated GFR (Cockcroft-Gault) 160.7 160.7 Random Vancomycin Level 13.5 mcg/mL White Blood Count 3.7 x10^3/uL (4.0-11.0) Red Blood Count 4.16 x10^6/uL (3.50-5.40) Hemoglobin 11.6 g/dL (12.0-15.5) Hematocrit 36.0 % (36.0-47.0) Mean Corpuscular Volume 87 fL (79-100) Mean Corpuscular Hemoglobin 28 pg (25-35) Mean Corpuscular Hemoglobin Concent 32 g/dL (31-37) Red Cell Distribution Width 16.1 % (11.5-14.5) Platelet Count 123 x10^3/uL (140-400) Neutrophils (%) (Auto) 71 % (31-73) Lymphocytes (%) (Auto) 16 % (24-48) Monocytes (%) (Auto) 10 % (0-9) Eosinophils (%) (Auto) 2 % (0-3) Basophils (%) (Auto) 0 % (0-3) Neutrophils # (Auto) 2.7 x10^3/uL (1.8-7.7) Lymphocytes # (Auto) 0.6 x10^3/uL (1.0-4.8) Monocytes # (Auto) 0.4 x10^3/uL (0.0-1.1) Eosinophils # (Auto) 0.1 x10^3/uL (0.0-0.7) Basophils # (Auto) 0.0 x10^3/uL (0.0-0.2) Sodium Level 148 mmol/L (136-145) Potassium Level 3.5 mmol/L (3.5-5.1) Chloride Level 105 mmol/L (98-107) Carbon Dioxide Level 43 mmol/L (21-32) Anion Gap 0 (6-14) Blood Urea Nitrogen 8 mg/dL (7-20) Glucose Level 139 mg/dL (70-99) Calcium Level 9.0 mg/dL (8.5-10.1) Magnesium Level 1.7 mg/dL (1.8-2.4) Glucose (Fingerstick) 127 mg/dL (70-99) Medications Active Scripts Medications Dose Route/Sig Max Daily Dose Days Date Category Depakote (Divalproex Sodium) 500 Mg Tablet.dr 1,250 Mg PO HS 08/22/19 Reported Xarelto (Rivaroxaban) 20 Mg Tablet 20 Mg PO DAILY 08/22/19 Reported Cavilon Durable Barrier (Dimethicone) 92 Gm Cream..g. 92 Gm TP DAILY 08/22/19 Reported Buspirone Hcl 5 Mg Tablet 2.5 Mg PO BID 08/22/19 Reported Tramadol Hcl 100 Mg Tab.er.24h 100 Mg PO Q6HRS 08/22/19 Reported Amlodipine Besylate 10 Mg Tablet 10 Mg PO DAILY 08/22/19 Reported Humalog (Insulin Lispro) 100 Unit/1 Ml Insuln.pen 0 Units SQ TIDWMEALS 14 07/22/19 Rx Culturelle (Lactobacillus Rhamnosus Gg) 1 Each Cap.sprink 1 Cap PO BID 30 07/22/19 Rx [Acetazolamide Sodium] 500 MG Vial 500 Mg IVP DAILY 14 07/22/19 Rx Vitamin D (Cholecalciferol (Vitamin D3)) 5,000 Unit Capsule 5,000 Unit PO WEEKLY 02/02/19 Reported Tylenol Extra Strength (Acetaminophen) 500 Mg Tablet 2 Mg PO DAILY 02/02/19 Reported Trazodone Hcl 50 Mg Tablet 1 Tab PO QHS 02/02/19 Reported Risperdal (Risperidone) 1 Mg Tablet 1 Mg PO QHS 02/02/19 Reported Proventil Hfa Inhaler (Albuterol Sulfate) 6.7 Gm Hfa.aer.ad 1 Puff IH PRN Q4HRS PRN 02/02/19 Reported Potassium Chloride 20 Meq Tablet.er 20 Meq PO DAILY 02/02/19 Reported Miralax (Polyethylene Glycol 3350) 17 Gm Powd.pack 1 Packet PO DAILY PRN 02/02/19 Reported Pilocarpine Hcl 5 Mg Tablet 10 Mg PO TID 02/02/19 Reported Lyrica (Pregabalin) 75 Mg Capsule 1 Cap PO TID 02/02/19 Reported Levothyroxine Sodium 175 Mcg Tablet 1 Tab PO DAILY 02/02/19 Reported Divalproex Sodium Er (Divalproex Sodium) 500 Mg Tab.er.24h 1 Tab PO DAILY 02/02/19 Reported Colace (Docusate Sodium) 100 Mg Capsule 1 Cap PO BID 02/02/19 Reported Biofreeze (Menthol) 118 Ml Gel..ml. 118 Ml TP TID 02/02/19 Reported Albuterol Sulfate Neb Soln (Albuterol Sulfate) 2.5 Mg/3 Ml Vial.neb 1 Vial NEB PRN Q4HRS 02/02/19 Reported Impression . IMPRESSION: 1. Acute on chronic hypoxemic hypercapnic respiratory failure. 2. Abnormal CT revealing ground glass opacities compatible with pulmonary edema, nonspecific alveolitis, possibly infectious in origin. 3. Urinary tract infection. 4. Morbid obesity. 5. Obstructive sleep apnea/obesity hypoventilation syndrome. 6. Leukopenia. 7. Diabetes. 8. Hypernatremia. 9. Severe protein malnutrition, present upon admission. IMPRESSION: 1. No evidence of pulmonary embolism. Suboptimal visualization of the segmental pulmonary artery branches, however. 2. There are couple of left pulmonary nodules each measuring 8 mm. At least one of these appears stable, but the other appears more dense on today's exam. As per revised Fleischner guidelines, recommend follow-up CT chest in 3-6 months. 3. Development of mild groundglass opacities throughout both lungs, as well as some more patchy atelectasis/infiltrate, suggesting infectious/inflammatory etiology. 4. Hilar or mediastinal lymph node enlargement, to some extent was seen on the previous noncontrast exam of indeterminate etiology. 5. Splenomegaly, stable. Plan . REPEAT CT 4-6 MONTHS 1. We will continue current empiric antibiotics. 2. BiPAP. 3. Follow ID input. 4. Continue home meds. 5. Follow Cardiology input. SAUD WASHBURN MD Aug 24, 2019 08:47
[2019-08-24] MEDS: CETIRIZINE HCL 10 MG TABLET. PO SCH (09:00)
[2019-08-24] MEDS ORDERED: MAGNESIUM SULFATE 2GM 50 ML IV ONE (09:00)
[2019-08-24] MEDS: METHYL SALICYLATE/MENTHOL TOPICAL OINTMENT 57GM TUBE. TP SCH ×3 (09:00→20:57)
--- NOTE | 2019-08-24 09:00 | PDOC ---
Infectious Disease Note Subjective Subjective pt is on bipap, says she is feeling better ROS ROS no n/v/d/sob Vital Sign Vital Signs Vital Signs Date Time Temp Pulse Resp B/P (MAP) Pulse Ox O2 Delivery O2 Flow Rate FiO2 08/24/19 08:18 92 BiPAP/CPAP 08/24/19 06:01 139/66 (90) 08/24/19 03:20 99.6 79 22 99.6 08/23/19 22:40 5.0 Physical Exam PHYSICAL EXAM GENERAL: Awake female, not in any distress, although on a BiPAP. VITAL SIGNS: Stable, afebrile. HEENT: NAD. NECK: Supple, no JVP, no lymphadenopathy. LUNGS: Clear. HEART: S1, S2 regular. ABDOMEN: Benign. EXTREMITIES: No edema, cyanosis. SKIN: Unremarkable. NEUROLOGIC: The patient is neurologically awake, nods appropriately, but not much further communication right now is possible, does move all the extremities. Labs Lab Laboratory Tests Test 08/23/19 12:05 08/23/19 16:15 08/23/19 16:58 08/23/19 20:38 Glucose (Fingerstick) 117 mg/dL (70-99) 110 mg/dL (70-99) 150 mg/dL (70-99) Vancomycin Level Trough 27.0 mcg/mL (10.0-20.0) Vancomycin Last Dose Date 08/23/19 Vancomycin Last Dose Time 0900 Test 08/24/19 01:10 08/24/19 05:30 08/24/19 08:26 Creatinine 0.4 mg/dL (0.6-1.0) 0.4 mg/dL (0.6-1.0) Estimated GFR (Cockcroft-Gault) 160.7 160.7 Random Vancomycin Level 13.5 mcg/mL White Blood Count 3.7 x10^3/uL (4.0-11.0) Red Blood Count 4.16 x10^6/uL (3.50-5.40) Hemoglobin 11.6 g/dL (12.0-15.5) Hematocrit 36.0 % (36.0-47.0) Mean Corpuscular Volume 87 fL (79-100) Mean Corpuscular Hemoglobin 28 pg (25-35) Mean Corpuscular Hemoglobin Concent 32 g/dL (31-37) Red Cell Distribution Width 16.1 % (11.5-14.5) Platelet Count 123 x10^3/uL (140-400) Neutrophils (%) (Auto) 71 % (31-73) Lymphocytes (%) (Auto) 16 % (24-48) Monocytes (%) (Auto) 10 % (0-9) Eosinophils (%) (Auto) 2 % (0-3) Basophils (%) (Auto) 0 % (0-3) Neutrophils # (Auto) 2.7 x10^3/uL (1.8-7.7) Lymphocytes # (Auto) 0.6 x10^3/uL (1.0-4.8) Monocytes # (Auto) 0.4 x10^3/uL (0.0-1.1) Eosinophils # (Auto) 0.1 x10^3/uL (0.0-0.7) Basophils # (Auto) 0.0 x10^3/uL (0.0-0.2) Sodium Level 148 mmol/L (136-145) Potassium Level 3.5 mmol/L (3.5-5.1) Chloride Level 105 mmol/L (98-107) Carbon Dioxide Level 43 mmol/L (21-32) Anion Gap 0 (6-14) Blood Urea Nitrogen 8 mg/dL (7-20) Glucose Level 139 mg/dL (70-99) Calcium Level 9.0 mg/dL (8.5-10.1) Magnesium Level 1.7 mg/dL (1.8-2.4) Glucose (Fingerstick) 127 mg/dL (70-99) Micro BC + G + cocci Objective Assessment 1. Urinary tract infection. 2. Bilateral pulmonary infiltrates, most likely to be congestive heart failure, infection cannot be entirely ruled out. 3. Morbid obesity. 4. Obstructive sleep apnea. 5. Diabetes. 6. Hypertension. 7. Gastroesophageal reflux disease. 8. Bipolar disorder. Plan Plan of Care cont vanc and zosyn supportive care follow cultures CHIRAG HAWLEY MD Aug 24, 2019 09:00
[2019-08-24] MEDS: DIVALPROEX EXTENDED RELEASE 500 MG TAB.ER.24H. PO SCH (09:11)
[2019-08-24] MEDS: busPIRone 5 MG TABLET. PO SCH ×2 (09:11→20:56)
[2019-08-24] MEDS: POTASSIUM CHLORIDE 20 MEQ TABLET.ER. PO SCH (09:11)
[2019-08-24] MEDS: LACTOBACILLUS RHAMNOSUS GG 1 CAPSULE. PO SCH ×2 (09:11→20:56)
[2019-08-24] MEDS: DOCUSATE SODIUM 100 MG CAPSULE. PO SCH ×2 (09:11→20:56)
[2019-08-24] MEDS: amLODIPine BESYLATE 10 MG TABLET PO SCH (09:12)
[2019-08-24] MEDS: PREGABALIN 75 MG CAPSULE PO SCH ×3 (09:12→20:56)
[2019-08-24] MEDS: FUROSEMIDE 40 MG/4 ML VIAL. IVP SCH ×2 (09:13→14:56)
[2019-08-24] MEDS: ACETAMINOPHEN 500 MG TABLET PO SCH (09:13)
[2019-08-24] MEDS: PILOCARPINE 5 MG TABLET. PO SCH ×3 (09:13→20:55)
[2019-08-24 13:42] LABS: BASE EXCESS ABG 12 mmol/L (-3-3); HCO3 ABG 39 mmol/L (21-28); PCO2 ABG 58 mmHg (35-46); PO2 ABG 100 mmHg (65-108); SAT O2 ABG 98 % (92-99)
--- NOTE | 2019-08-24 13:56 | PDOC ---
CARDIO Progress Notes Date and Time Date of Service 08/24/19 1310 Time of Evaluation 1310 Subjective Subjective: Other (on BiPAP) Vitals Vitals Vital Signs Date Time Temp Pulse Resp B/P (MAP) Pulse Ox O2 Delivery O2 Flow Rate FiO2 08/24/19 13:17 95 BiPAP/CPAP 08/24/19 10:34 99.2 103 22 128/57 (80) 4.0 99.2 Weight Weight [ ] Input and Output Intake and Output Intake and Output 08/24/19 06:59 Intake Total 1960 ml Output Total 1350 ml Balance 610 ml Intake Oral 1360 ml IV Total 600 ml Output Urine Total 1350 ml Laboratory Labs Laboratory Tests Test 08/23/19 16:15 08/23/19 16:58 08/23/19 20:38 08/24/19 01:10 Vancomycin Level Trough 27.0 mcg/mL (10.0-20.0) Vancomycin Last Dose Date 08/23/19 Vancomycin Last Dose Time 0900 Glucose (Fingerstick) 110 mg/dL (70-99) 150 mg/dL (70-99) Creatinine 0.4 mg/dL (0.6-1.0) Estimated GFR (Cockcroft-Gault) 160.7 Random Vancomycin Level 13.5 mcg/mL Test 08/24/19 05:30 08/24/19 08:26 08/24/19 12:11 08/24/19 13:40 White Blood Count 3.7 x10^3/uL (4.0-11.0) Red Blood Count 4.16 x10^6/uL (3.50-5.40) Hemoglobin 11.6 g/dL (12.0-15.5) Hematocrit 36.0 % (36.0-47.0) Mean Corpuscular Volume 87 fL (79-100) Mean Corpuscular Hemoglobin 28 pg (25-35) Mean Corpuscular Hemoglobin Concent 32 g/dL (31-37) Red Cell Distribution Width 16.1 % (11.5-14.5) Platelet Count 123 x10^3/uL (140-400) Neutrophils (%) (Auto) 71 % (31-73) Lymphocytes (%) (Auto) 16 % (24-48) Monocytes (%) (Auto) 10 % (0-9) Eosinophils (%) (Auto) 2 % (0-3) Basophils (%) (Auto) 0 % (0-3) Neutrophils # (Auto) 2.7 x10^3/uL (1.8-7.7) Lymphocytes # (Auto) 0.6 x10^3/uL (1.0-4.8) Monocytes # (Auto) 0.4 x10^3/uL (0.0-1.1) Eosinophils # (Auto) 0.1 x10^3/uL (0.0-0.7) Basophils # (Auto) 0.0 x10^3/uL (0.0-0.2) Sodium Level 148 mmol/L (136-145) Potassium Level 3.5 mmol/L (3.5-5.1) Chloride Level 105 mmol/L (98-107) Carbon Dioxide Level 43 mmol/L (21-32) Anion Gap 0 (6-14) Blood Urea Nitrogen 8 mg/dL (7-20) Creatinine 0.4 mg/dL (0.6-1.0) Estimated GFR (Cockcroft-Gault) 160.7 Glucose Level 139 mg/dL (70-99) Calcium Level 9.0 mg/dL (8.5-10.1) Magnesium Level 1.7 mg/dL (1.8-2.4) Glucose (Fingerstick) 127 mg/dL (70-99) 117 mg/dL (70-99) O2 Saturation 98 % (92-99) Arterial Blood pH 7.44 (7.35-7.45) Arterial Blood pCO2 at Patient Temp 58 mmHg (35-46) Arterial Blood pO2 at Patient Temp 100 mmHg (65-108) Arterial Blood HCO3 39 mmol/L (21-28) Arterial Blood Base Excess 12 mmol/L (-3-3) Microbiology Micro Microbiology 08/22/19 Urine Culture - Final, Complete 08/22/19 Urine Culture Result 1 (RITA) - Final, Complete 08/22/19 Blood Culture - Preliminary, Resulted NO GROWTH AFTER 2 DAYS Physical Exam HEENT: Neck Supple W Full Motion Chest: Symmetric LUNGS: Other (crackles, BiPAP) Heart: S1S2, RRR Abdomen: Soft N/T Extremities: Other (trace LE edema ) Neurology: alert, follow commands Assessment Assessment 1. Acute on chronic respiratory failure with possible PNA and CHF 2. Mild acute on chronic diastolic CHF; Echo with preserved LV systolic function 3. Fevers, bacteremia; BC+ for GPC. as per ID 4. Hypertension; controlled 5. Hyperlipidemia; LDL 128. allergy ot statins 6. Diabetes, II; as per PCP 7. H/o chronic embolism, thrombosis; on Xarelto 8. AJ. hypoventilation syndrome 9. Hypothyroidism 10. Hypomagnesemia; replaced 11. Developmental delay Recommendations Diuresis Ongoing antibiotic therapy Supportive care CRISTA NIETO APRN Aug 24, 2019 13:56
[2019-08-24] MEDS: RIVAROXABAN 10 MG TABLET. PO SCH (18:00)
[2019-08-24] MEDS: ACETAMINOPHEN 500 MG TABLET PO PRN (19:35)
[2019-08-24] MEDS: ALBUTEROL SULFATE 2.5 MG/3 ML NEBU. NEB SCH (19:47)
[2019-08-24] MEDS: DIVALPROEX EXTENDED RELEASE 250 MG TAB.ER.24H. PO SCH (20:55)
[2019-08-24] MEDS: traZODone 50 MG TABLET. PO SCH (20:56)
[2019-08-24] MEDS: risperiDONE 1 MG TABLET. PO SCH (20:57)
--- NOTE | 2019-08-25 01:47 | NUR ---
Contacted [facility] in [place], [place] and patient was on ABT Acetazolamide 500mg Daily IV Push that started on 08/09/2019 and end October.
[2019-08-25] MEDS: VANCOMYCIN 1.5 GM in IV NORMAL SALINE 500ML BAG 500 ML IV SCH ×2 (02:06→14:50)
[2019-08-25 03:01] VITALS: BP 135/65
[2019-08-25] MEDS: MEROPENEM 1 GM in IV NORMAL SALINE 100ML 100 ML IV SCH ×3 (05:34→21:29)
[2019-08-25] MEDS: LEVOTHYROXINE 175 MCG TABLET PO SCH (05:35)
[2019-08-25] MEDS: traMADol 50 MG TABLET PO SCH ×3 (05:35→18:32)
[2019-08-25 05:56] LABS: BASO % 0 % (0-3); EOS % 0 % (0-3); HEMATOCRIT 34.6 % (36.0-47.0); HEMOGLOBIN 11.1 g/dL (12.0-15.5); LYMPH # 0.9 x10^3/uL (1.0-4.8); LYMPH % 11 % (24-48); MEAN CORPUSCULAR HEMOGLOBIN 28 pg (25-35); MEAN CORPUSCULAR HGB CONC 32 g/dL (31-37); MEAN CORPUSCULAR VOLUME 87 fL (79-100); MONO # 0.7 x10^3/uL (0.0-1.1); MONO % 9 % (0-9); NEUT # 6.3 x10^3/uL (1.8-7.7); NEUT % 80 % (31-73); PLATELET COUNT 152 x10^3/uL (140-400); RED BLOOD COUNT 3.97 x10^6/uL (3.50-5.40); RED CELL DISTRIBUTION WIDTH 16.4 % (11.5-14.5); WHITE BLOOD COUNT 7.9 x10^3/uL (4.0-11.0)
[2019-08-25 06:15] LABS: ALBUMIN/GLOBULIN RATIO 0.4 (1.0-1.7); CREATININE 0.4 mg/dL (0.6-1.0); GFR 160.7; MAGNESIUM 1.7 mg/dL (1.8-2.4); POTASSIUM 3.6 mmol/L (3.5-5.1); TOTAL BILIRUBIN 0.4 mg/dL (0.2-1.0); TOTAL PROTEIN 7.2 g/dL (6.4-8.2)
[2019-08-25 07:00] VITALS: BP 125/72
[2019-08-25] MEDS: INSULIN LISPRO 300 UNITS/3 ML VIAL. SQ SCH ×3 (07:51→17:00)
--- NOTE | 2019-08-25 07:56 | PDOC ---
Infectious Disease Note Subjective Subjective pt is on bipap, says she is feeling better ROS ROS no n/v/d/sob Vital Sign Vital Signs Vital Signs Date Time Temp Pulse Resp B/P (MAP) Pulse Ox O2 Delivery O2 Flow Rate FiO2 08/25/19 07:00 99.1 83 26 125/72 (89) 95 BiPAP/CPAP 40.0 99.1 Physical Exam PHYSICAL EXAM GENERAL: Awake female, not in any distress, although on a BiPAP. VITAL SIGNS: Stable, afebrile. HEENT: NAD. NECK: Supple, no JVP, no lymphadenopathy. LUNGS: Clear. HEART: S1, S2 regular. ABDOMEN: Benign. EXTREMITIES: No edema, cyanosis. SKIN: Unremarkable. NEUROLOGIC: The patient is neurologically awake, nods appropriately, but not much further communication right now is possible, does move all the extremities. Labs Lab Laboratory Tests Test 08/24/19 08:26 08/24/19 12:11 08/24/19 13:40 08/24/19 17:23 Glucose (Fingerstick) 127 mg/dL (70-99) 117 mg/dL (70-99) 135 mg/dL (70-99) O2 Saturation 98 % (92-99) Arterial Blood pH 7.44 (7.35-7.45) Arterial Blood pCO2 at Patient Temp 58 mmHg (35-46) Arterial Blood pO2 at Patient Temp 100 mmHg (65-108) Arterial Blood HCO3 39 mmol/L (21-28) Arterial Blood Base Excess 12 mmol/L (-3-3) Test 08/24/19 20:34 08/25/19 05:30 08/25/19 07:18 Glucose (Fingerstick) 126 mg/dL (70-99) 108 mg/dL (70-99) White Blood Count 7.9 x10^3/uL (4.0-11.0) Red Blood Count 3.97 x10^6/uL (3.50-5.40) Hemoglobin 11.1 g/dL (12.0-15.5) Hematocrit 34.6 % (36.0-47.0) Mean Corpuscular Volume 87 fL (79-100) Mean Corpuscular Hemoglobin 28 pg (25-35) Mean Corpuscular Hemoglobin Concent 32 g/dL (31-37) Red Cell Distribution Width 16.4 % (11.5-14.5) Platelet Count 152 x10^3/uL (140-400) Neutrophils (%) (Auto) 80 % (31-73) Lymphocytes (%) (Auto) 11 % (24-48) Monocytes (%) (Auto) 9 % (0-9) Eosinophils (%) (Auto) 0 % (0-3) Basophils (%) (Auto) 0 % (0-3) Neutrophils # (Auto) 6.3 x10^3/uL (1.8-7.7) Lymphocytes # (Auto) 0.9 x10^3/uL (1.0-4.8) Monocytes # (Auto) 0.7 x10^3/uL (0.0-1.1) Eosinophils # (Auto) 0.0 x10^3/uL (0.0-0.7) Basophils # (Auto) 0.0 x10^3/uL (0.0-0.2) Sodium Level 150 mmol/L (136-145) Potassium Level 3.6 mmol/L (3.5-5.1) Chloride Level 105 mmol/L (98-107) Carbon Dioxide Level 44 mmol/L (21-32) Anion Gap 1 (6-14) Blood Urea Nitrogen 10 mg/dL (7-20) Creatinine 0.4 mg/dL (0.6-1.0) Estimated GFR (Cockcroft-Gault) 160.7 BUN/Creatinine Ratio 25 (6-20) Glucose Level 130 mg/dL (70-99) Calcium Level 9.0 mg/dL (8.5-10.1) Magnesium Level 1.7 mg/dL (1.8-2.4) Total Bilirubin 0.4 mg/dL (0.2-1.0) Aspartate Amino Transf (AST/SGOT) 16 U/L (15-37) Alanine Aminotransferase (ALT/SGPT) 6 U/L (14-59) Alkaline Phosphatase 78 U/L (46-116) Total Protein 7.2 g/dL (6.4-8.2) Albumin 2.0 g/dL (3.4-5.0) Albumin/Globulin Ratio 0.4 (1.0-1.7) Micro BC + G + cocci ID pending Objective Assessment 1. Urinary tract infection. 2. Bilateral pulmonary infiltrates, most likely to be congestive heart failure, infection cannot be entirely ruled out. 3. Morbid obesity. 4. Obstructive sleep apnea. 5. Diabetes. 6. Hypertension. 7. Gastroesophageal reflux disease. 8. Bipolar disorder. Plan Plan of Care cont vanc and zosyn supportive care follow cultures consult Pat to discuss goal of care, since pt might be aspirating and how far to go with it CHIRAG HAWLEY MD Aug 25, 2019 07:56
[2019-08-25] MEDS: ALBUTEROL SULFATE 2.5 MG/3 ML NEBU. NEB SCH ×4 (08:02→21:24)
[2019-08-25] MEDS: METHYL SALICYLATE/MENTHOL TOPICAL OINTMENT 57GM TUBE. TP SCH ×3 (09:00→21:29)
--- NOTE | 2019-08-25 09:47 | PDOC ---
PULMONARY PROGRESS NOTES Subjective PT ON BIPAP QHS NOW OFF STILL SOA Vitals Vital Signs Date Time Temp Pulse Resp B/P (MAP) Pulse Ox O2 Delivery O2 Flow Rate FiO2 08/25/19 08:00 91 BiPAP/CPAP 08/25/19 07:00 99.1 83 26 125/72 (89) 40.0 99.1 ROS: No Nausea, No Chest Pain, No Abdominal Pain, No Increase Cough General: Alert Lungs: Crackles Cardiovascular: S1, S2 Abdomen: Soft, Other Extremities: Other (EDEMA) Skin: Warm Labs Laboratory Tests Test 08/23/19 12:05 08/23/19 16:15 08/23/19 16:58 08/23/19 20:38 Glucose (Fingerstick) 117 mg/dL (70-99) 110 mg/dL (70-99) 150 mg/dL (70-99) Vancomycin Level Trough 27.0 mcg/mL (10.0-20.0) Vancomycin Last Dose Date 08/23/19 Vancomycin Last Dose Time 0900 Test 08/24/19 01:10 08/24/19 05:30 08/24/19 08:26 08/24/19 12:11 Creatinine 0.4 mg/dL (0.6-1.0) 0.4 mg/dL (0.6-1.0) Estimated GFR (Cockcroft-Gault) 160.7 160.7 Random Vancomycin Level 13.5 mcg/mL White Blood Count 3.7 x10^3/uL (4.0-11.0) Red Blood Count 4.16 x10^6/uL (3.50-5.40) Hemoglobin 11.6 g/dL (12.0-15.5) Hematocrit 36.0 % (36.0-47.0) Mean Corpuscular Volume 87 fL (79-100) Mean Corpuscular Hemoglobin 28 pg (25-35) Mean Corpuscular Hemoglobin Concent 32 g/dL (31-37) Red Cell Distribution Width 16.1 % (11.5-14.5) Platelet Count 123 x10^3/uL (140-400) Neutrophils (%) (Auto) 71 % (31-73) Lymphocytes (%) (Auto) 16 % (24-48) Monocytes (%) (Auto) 10 % (0-9) Eosinophils (%) (Auto) 2 % (0-3) Basophils (%) (Auto) 0 % (0-3) Neutrophils # (Auto) 2.7 x10^3/uL (1.8-7.7) Lymphocytes # (Auto) 0.6 x10^3/uL (1.0-4.8) Monocytes # (Auto) 0.4 x10^3/uL (0.0-1.1) Eosinophils # (Auto) 0.1 x10^3/uL (0.0-0.7) Basophils # (Auto) 0.0 x10^3/uL (0.0-0.2) Sodium Level 148 mmol/L (136-145) Potassium Level 3.5 mmol/L (3.5-5.1) Chloride Level 105 mmol/L (98-107) Carbon Dioxide Level 43 mmol/L (21-32) Anion Gap 0 (6-14) Blood Urea Nitrogen 8 mg/dL (7-20) Glucose Level 139 mg/dL (70-99) Calcium Level 9.0 mg/dL (8.5-10.1) Magnesium Level 1.7 mg/dL (1.8-2.4) Glucose (Fingerstick) 127 mg/dL (70-99) 117 mg/dL (70-99) Test 08/24/19 13:40 08/24/19 17:23 08/24/19 20:34 08/25/19 05:30 O2 Saturation 98 % (92-99) Arterial Blood pH 7.44 (7.35-7.45) Arterial Blood pCO2 at Patient Temp 58 mmHg (35-46) Arterial Blood pO2 at Patient Temp 100 mmHg (65-108) Arterial Blood HCO3 39 mmol/L (21-28) Arterial Blood Base Excess 12 mmol/L (-3-3) Glucose (Fingerstick) 135 mg/dL (70-99) 126 mg/dL (70-99) White Blood Count 7.9 x10^3/uL (4.0-11.0) Red Blood Count 3.97 x10^6/uL (3.50-5.40) Hemoglobin 11.1 g/dL (12.0-15.5) Hematocrit 34.6 % (36.0-47.0) Mean Corpuscular Volume 87 fL (79-100) Mean Corpuscular Hemoglobin 28 pg (25-35) Mean Corpuscular Hemoglobin Concent 32 g/dL (31-37) Red Cell Distribution Width 16.4 % (11.5-14.5) Platelet Count 152 x10^3/uL (140-400) Neutrophils (%) (Auto) 80 % (31-73) Lymphocytes (%) (Auto) 11 % (24-48) Monocytes (%) (Auto) 9 % (0-9) Eosinophils (%) (Auto) 0 % (0-3) Basophils (%) (Auto) 0 % (0-3) Neutrophils # (Auto) 6.3 x10^3/uL (1.8-7.7) Lymphocytes # (Auto) 0.9 x10^3/uL (1.0-4.8) Monocytes # (Auto) 0.7 x10^3/uL (0.0-1.1) Eosinophils # (Auto) 0.0 x10^3/uL (0.0-0.7) Basophils # (Auto) 0.0 x10^3/uL (0.0-0.2) Sodium Level 150 mmol/L (136-145) Potassium Level 3.6 mmol/L (3.5-5.1) Chloride Level 105 mmol/L (98-107) Carbon Dioxide Level 44 mmol/L (21-32) Anion Gap 1 (6-14) Blood Urea Nitrogen 10 mg/dL (7-20) Creatinine 0.4 mg/dL (0.6-1.0) Estimated GFR (Cockcroft-Gault) 160.7 BUN/Creatinine Ratio 25 (6-20) Glucose Level 130 mg/dL (70-99) Calcium Level 9.0 mg/dL (8.5-10.1) Magnesium Level 1.7 mg/dL (1.8-2.4) Total Bilirubin 0.4 mg/dL (0.2-1.0) Aspartate Amino Transf (AST/SGOT) 16 U/L (15-37) Alanine Aminotransferase (ALT/SGPT) 6 U/L (14-59) Alkaline Phosphatase 78 U/L (46-116) Total Protein 7.2 g/dL (6.4-8.2) Albumin 2.0 g/dL (3.4-5.0) Albumin/Globulin Ratio 0.4 (1.0-1.7) Test 08/25/19 07:18 Glucose (Fingerstick) 108 mg/dL (70-99) Laboratory Tests Test 08/24/19 12:11 08/24/19 13:40 08/24/19 17:23 08/24/19 20:34 Glucose (Fingerstick) 117 mg/dL (70-99) 135 mg/dL (70-99) 126 mg/dL (70-99) O2 Saturation 98 % (92-99) Arterial Blood pH 7.44 (7.35-7.45) Arterial Blood pCO2 at Patient Temp 58 mmHg (35-46) Arterial Blood pO2 at Patient Temp 100 mmHg (65-108) Arterial Blood HCO3 39 mmol/L (21-28) Arterial Blood Base Excess 12 mmol/L (-3-3) Test 08/25/19 05:30 08/25/19 07:18 White Blood Count 7.9 x10^3/uL (4.0-11.0) Red Blood Count 3.97 x10^6/uL (3.50-5.40) Hemoglobin 11.1 g/dL (12.0-15.5) Hematocrit 34.6 % (36.0-47.0) Mean Corpuscular Volume 87 fL (79-100) Mean Corpuscular Hemoglobin 28 pg (25-35) Mean Corpuscular Hemoglobin Concent 32 g/dL (31-37) Red Cell Distribution Width 16.4 % (11.5-14.5) Platelet Count 152 x10^3/uL (140-400) Neutrophils (%) (Auto) 80 % (31-73) Lymphocytes (%) (Auto) 11 % (24-48) Monocytes (%) (Auto) 9 % (0-9) Eosinophils (%) (Auto) 0 % (0-3) Basophils (%) (Auto) 0 % (0-3) Neutrophils # (Auto) 6.3 x10^3/uL (1.8-7.7) Lymphocytes # (Auto) 0.9 x10^3/uL (1.0-4.8) Monocytes # (Auto) 0.7 x10^3/uL (0.0-1.1) Eosinophils # (Auto) 0.0 x10^3/uL (0.0-0.7) Basophils # (Auto) 0.0 x10^3/uL (0.0-0.2) Sodium Level 150 mmol/L (136-145) Potassium Level 3.6 mmol/L (3.5-5.1) Chloride Level 105 mmol/L (98-107) Carbon Dioxide Level 44 mmol/L (21-32) Anion Gap 1 (6-14) Blood Urea Nitrogen 10 mg/dL (7-20) Creatinine 0.4 mg/dL (0.6-1.0) Estimated GFR (Cockcroft-Gault) 160.7 BUN/Creatinine Ratio 25 (6-20) Glucose Level 130 mg/dL (70-99) Calcium Level 9.0 mg/dL (8.5-10.1) Magnesium Level 1.7 mg/dL (1.8-2.4) Total Bilirubin 0.4 mg/dL (0.2-1.0) Aspartate Amino Transf (AST/SGOT) 16 U/L (15-37) Alanine Aminotransferase (ALT/SGPT) 6 U/L (14-59) Alkaline Phosphatase 78 U/L (46-116) Total Protein 7.2 g/dL (6.4-8.2) Albumin 2.0 g/dL (3.4-5.0) Albumin/Globulin Ratio 0.4 (1.0-1.7) Glucose (Fingerstick) 108 mg/dL (70-99) Medications Active Scripts Medications Dose Route/Sig Max Daily Dose Days Date Category Depakote (Divalproex Sodium) 500 Mg Tablet.dr 1,250 Mg PO HS 08/22/19 Reported Xarelto (Rivaroxaban) 20 Mg Tablet 20 Mg PO DAILY 08/22/19 Reported Cavilon Durable Barrier (Dimethicone) 92 Gm Cream..g. 92 Gm TP DAILY 08/22/19 Reported Buspirone Hcl 5 Mg Tablet 2.5 Mg PO BID 08/22/19 Reported Tramadol Hcl 100 Mg Tab.er.24h 100 Mg PO Q6HRS 08/22/19 Reported Amlodipine Besylate 10 Mg Tablet 10 Mg PO DAILY 08/22/19 Reported Humalog (Insulin Lispro) 100 Unit/1 Ml Insuln.pen 0 Units SQ TIDWMEALS 14 07/22/19 Rx Culturelle (Lactobacillus Rhamnosus Gg) 1 Each Cap.sprink 1 Cap PO BID 30 07/22/19 Rx [Acetazolamide Sodium] 500 MG Vial 500 Mg IVP DAILY 14 07/22/19 Rx Vitamin D (Cholecalciferol (Vitamin D3)) 5,000 Unit Capsule 5,000 Unit PO WEEKLY 02/02/19 Reported Tylenol Extra Strength (Acetaminophen) 500 Mg Tablet 2 Mg PO DAILY 02/02/19 Reported Trazodone Hcl 50 Mg Tablet 1 Tab PO QHS 02/02/19 Reported Risperdal (Risperidone) 1 Mg Tablet 1 Mg PO QHS 02/02/19 Reported Proventil Hfa Inhaler (Albuterol Sulfate) 6.7 Gm Hfa.aer.ad 1 Puff IH PRN Q4HRS PRN 02/02/19 Reported Potassium Chloride 20 Meq Tablet.er 20 Meq PO DAILY 02/02/19 Reported Miralax (Polyethylene Glycol 3350) 17 Gm Powd.pack 1 Packet PO DAILY PRN 02/02/19 Reported Pilocarpine Hcl 5 Mg Tablet 10 Mg PO TID 02/02/19 Reported Lyrica (Pregabalin) 75 Mg Capsule 1 Cap PO TID 02/02/19 Reported Levothyroxine Sodium 175 Mcg Tablet 1 Tab PO DAILY 02/02/19 Reported Divalproex Sodium Er (Divalproex Sodium) 500 Mg Tab.er.24h 1 Tab PO DAILY 02/02/19 Reported Colace (Docusate Sodium) 100 Mg Capsule 1 Cap PO BID 02/02/19 Reported Biofreeze (Menthol) 118 Ml Gel..ml. 118 Ml TP TID 02/02/19 Reported Albuterol Sulfate Neb Soln (Albuterol Sulfate) 2.5 Mg/3 Ml Vial.neb 1 Vial NEB PRN Q4HRS 02/02/19 Reported Impression . IMPRESSION: 1. Acute on chronic hypoxemic hypercapnic respiratory failure. 2. Abnormal CT revealing ground glass opacities compatible with pulmonary edema, nonspecific alveolitis, possibly infectious in origin. 3. Urinary tract infection. 4. Morbid obesity. 5. Obstructive sleep apnea/obesity hypoventilation syndrome. 6. Leukopenia. 7. Diabetes. 8. Hypernatremia. 9. Severe protein malnutrition, present upon admission. IMPRESSION: 1. No evidence of pulmonary embolism. Suboptimal visualization of the segmental pulmonary artery branches, however. 2. There are couple of left pulmonary nodules each measuring 8 mm. At least one of these appears stable, but the other appears more dense on today's exam. As per revised Fleischner guidelines, recommend follow-up CT chest in 3-6 months. 3. Development of mild groundglass opacities throughout both lungs, as well as some more patchy atelectasis/infiltrate, suggesting infectious/inflammatory etiology. 4. Hilar or mediastinal lymph node enlargement, to some extent was seen on the previous noncontrast exam of indeterminate etiology. 5. Splenomegaly, stable. Plan . REPEAT CT 4-6 MONTHS BIPAP QHS ANTIBX PER ID SAUD CASTRO MD Aug 25, 2019 09:47
[2019-08-25] MEDS: VANCOMYCIN PER PHARMACY MC PRN ×2 (10:18→14:18)
[2019-08-25] MEDS: ANTI-COAG MONITOR BY PHARMACY. MC PRN (10:22)
[2019-08-25 10:43] VITALS: BP 134/60
[2019-08-25] MEDS: PILOCARPINE 5 MG TABLET. PO SCH ×3 (11:05→21:28)
[2019-08-25] MEDS: DOCUSATE SODIUM 100 MG CAPSULE. PO SCH ×2 (11:05→21:28)
[2019-08-25] MEDS: amLODIPine BESYLATE 10 MG TABLET PO SCH (11:05)
[2019-08-25] MEDS: busPIRone 5 MG TABLET. PO SCH ×2 (11:06→21:28)
[2019-08-25] MEDS: LACTOBACILLUS RHAMNOSUS GG 1 CAPSULE. PO SCH ×2 (11:07→21:28)
[2019-08-25] MEDS: CETIRIZINE HCL 10 MG TABLET. PO SCH (11:07)
[2019-08-25] MEDS: ACETAMINOPHEN 500 MG TABLET PO SCH (11:07)
[2019-08-25] MEDS: PREGABALIN 75 MG CAPSULE PO SCH ×3 (11:07→21:28)
[2019-08-25] MEDS: POTASSIUM CHLORIDE 20 MEQ TABLET.ER. PO SCH (11:07)
[2019-08-25] MEDS: FUROSEMIDE 40 MG/4 ML VIAL. IVP SCH (11:08)
[2019-08-25] MEDS: DIVALPROEX EXTENDED RELEASE 500 MG TAB.ER.24H. PO SCH (11:08)
--- NOTE | 2019-08-25 11:36 | NUR ---
SS following up with discharge planning. Clinical updates phoned and faxed to [facility], ; fax [phone]. SS will continue to follow for discharge planning.
--- NOTE | 2019-08-25 12:11 | PDOC ---
DANIELLE HARVEY BRIEF WRITER 08/25/19 1211: CARDIO Progress Notes Date and Time Date of Service 08/25/2019 Time of Evaluation 1150 Subjective Subjective: No Chest Pain, No shortness of breath, No Palpitations Vitals Vitals Vital Signs Date Time Temp Pulse Resp B/P (MAP) Pulse Ox O2 Delivery O2 Flow Rate FiO2 08/25/19 11:59 93 Nasal Cannula 4.0 08/25/19 11:05 94 134/60 08/25/19 10:43 98.4 22 98.4 Weight Weight [ ] Input and Output Intake and Output Intake and Output 08/25/19 07:00 Intake Total 720 ml Output Total 2225 ml Balance -1505 ml Intake Oral 20 ml IV Total 700 ml Output Urine Total 2225 ml Stool Total 0 ml Laboratory Labs Laboratory Tests Test 08/24/19 12:11 08/24/19 13:40 08/24/19 17:23 08/24/19 20:34 Glucose (Fingerstick) 117 mg/dL (70-99) 135 mg/dL (70-99) 126 mg/dL (70-99) O2 Saturation 98 % (92-99) Arterial Blood pH 7.44 (7.35-7.45) Arterial Blood pCO2 at Patient Temp 58 mmHg (35-46) Arterial Blood pO2 at Patient Temp 100 mmHg (65-108) Arterial Blood HCO3 39 mmol/L (21-28) Arterial Blood Base Excess 12 mmol/L (-3-3) Test 08/25/19 05:30 08/25/19 07:18 White Blood Count 7.9 x10^3/uL (4.0-11.0) Red Blood Count 3.97 x10^6/uL (3.50-5.40) Hemoglobin 11.1 g/dL (12.0-15.5) Hematocrit 34.6 % (36.0-47.0) Mean Corpuscular Volume 87 fL (79-100) Mean Corpuscular Hemoglobin 28 pg (25-35) Mean Corpuscular Hemoglobin Concent 32 g/dL (31-37) Red Cell Distribution Width 16.4 % (11.5-14.5) Platelet Count 152 x10^3/uL (140-400) Neutrophils (%) (Auto) 80 % (31-73) Lymphocytes (%) (Auto) 11 % (24-48) Monocytes (%) (Auto) 9 % (0-9) Eosinophils (%) (Auto) 0 % (0-3) Basophils (%) (Auto) 0 % (0-3) Neutrophils # (Auto) 6.3 x10^3/uL (1.8-7.7) Lymphocytes # (Auto) 0.9 x10^3/uL (1.0-4.8) Monocytes # (Auto) 0.7 x10^3/uL (0.0-1.1) Eosinophils # (Auto) 0.0 x10^3/uL (0.0-0.7) Basophils # (Auto) 0.0 x10^3/uL (0.0-0.2) Sodium Level 150 mmol/L (136-145) Potassium Level 3.6 mmol/L (3.5-5.1) Chloride Level 105 mmol/L (98-107) Carbon Dioxide Level 44 mmol/L (21-32) Anion Gap 1 (6-14) Blood Urea Nitrogen 10 mg/dL (7-20) Creatinine 0.4 mg/dL (0.6-1.0) Estimated GFR (Cockcroft-Gault) 160.7 BUN/Creatinine Ratio 25 (6-20) Glucose Level 130 mg/dL (70-99) Calcium Level 9.0 mg/dL (8.5-10.1) Magnesium Level 1.7 mg/dL (1.8-2.4) Total Bilirubin 0.4 mg/dL (0.2-1.0) Aspartate Amino Transf (AST/SGOT) 16 U/L (15-37) Alanine Aminotransferase (ALT/SGPT) 6 U/L (14-59) Alkaline Phosphatase 78 U/L (46-116) Total Protein 7.2 g/dL (6.4-8.2) Albumin 2.0 g/dL (3.4-5.0) Albumin/Globulin Ratio 0.4 (1.0-1.7) Glucose (Fingerstick) 108 mg/dL (70-99) Microbiology Micro Microbiology 08/22/19 Urine Culture - Final, Complete 08/22/19 Urine Culture Result 1 (RITA) - Final, Complete 08/22/19 Blood Culture - Preliminary, Resulted NO GROWTH AFTER 3 DAYS Physical Exam HEENT: Neck Supple W Full Motion Chest: Symmetric LUNGS: Other (diminished bases) Heart: S1S2, RRR (SR) Abdomen: Soft N/T Extremities: Other (trace LE edema ) Neurology: alert, follow commands, other (developmental delay) Assessment Assessment 1. Acute on chronic respiratory failure with CHF and possibly PNA 2. Acute on chronic diastolic CHF: appears compensated 3. Fevers/UTI/bacteremia; BC+ for GPC. as per ID 4. Hypertension; controlled 5. Hyperlipidemia; LDL 128. allergy ot statins 6. Diabetes, II; as per PCP 7. H/o chronic embolism, thrombosis; on Xarelto 8. AJ. hypoventilation syndrome 9. Hypothyroidism 10. Hypomagnesemia 11. Developmental delay with mental retardation Recommendations 1. Lasix therapy and will decrease due to contraction alkalosis. Replace Mg. 2. Ongoing antibiotic therapy per ID 3. Continue BP regimen 4. Nothing further cardiac byrne. RADHA MARTINEZ MD 08/26/19 0655: CARDIO Progress Notes Assessment Assessment Patient seen and examined 08/25/19. Agree with MOSS GATHERER's assessment and plan. Acute on chronic diastolic heart failure better compensated 2-D echo showed normal LV systolic function Continue current treatment for pneumonia per ID DANIELLE HARVEY APRN Aug 25, 2019 12:11 RADHA MARTINEZ MD Aug 26, 2019 06:55
--- NOTE | 2019-08-25 12:14 | PDOC2 ---
PALLIATIVE CARE Palliative Care Note Palliative Care Consult requested to address goals of care. Medical Assessment per medical record. 1. Urinary tract infection. 2. Bilateral pulmonary infiltrates, most likely to be congestive heart failure, infection cannot be entirely ruled out. 3. Morbid obesity. 4. Obstructive sleep apnea. 5. Diabetes. 6. Hypertension. 7. Gastroesophageal reflux disease. 8. Bipolar disorder. Spoke with patient. Alert and oriented. Off BiPap. Understands she may have pneumonia caused by aspiration. She states she does not want any artificial tubes --feeding tube or tracheostomy. Confirmed DNR/DNI. When God calls me home let me go home. Copy of POA/AD reviewed on chart. Spoke with her sister/DPOA. Confirmed that this is Rosmery's wishes and has been for a long time. Rosmery will return to [facility], [place] and if she does not improve than Hospice would be appropriate when she returns to the [facility]. Discussed this with her sister/DPOA Adele and she agrees. Swallow Evaluation: RECOMMENDATIONS: Initiate dysphagia I w/honey thick liquids. Precautions posted. Diet orders entered. Patient appears to have thrush. Yg MANRIQUEZ will notify physician. Outside the Hospital DNR/DNI form on chart for signature. Plan: DNR/DNI No "artificial tubes" per patient request. Specifically talked about feeding tube and tracheostomy. Return to [facility], [place]. If patient does not improve than hospice would be appropriate JODIE HAUSER Aug 25, 2019 12:14
--- NOTE | 2019-08-25 12:25 | PDOC ---
[employer] PROGRESS NOTE Chief Complaint Chief Complaint Acute hypoxia - with CXR concerning for pulmonary HTN. BIPAP 01/07 now Dysuria - grossly abnormal UA, given empiric antibiotics Alkalosis - possibly from diuresis. I see her elevated BNP, this clinically may be CHF, but looks more like pulmonary HTN and possibly viral pulm infection. Consult pulm Bipolar Disorder - with anxiety and depression. Will check depakote level, cont meds COPD on 2l NCO2 - worsening now. Consult pulm Constipation - cont bowel regimen Diabetes-Type II - sliding scale in house GERD - cont meds High Cholesterol - cont statin Hypertension - cont meds Hypothyroid - will check TSH, cont meds AJ on CPAP - 9cm H2O QHS at SNF. Continue FEN - ADA diet PPX - lovenox DNR/DNI Dispo - inpatient for acute hypoxia History of Present Illness History of Present Illness Ms Hartley is a 63 yo SNF resident, wheelchair bound, w/ PMHx Bipolar Disorder, COPD on 2l NCO2, AJ, Anxiety, Constipation, Diabetes-Type II, GERD, High Cholesterol, Hypertension, Hypothyroid who was brought in by correction staff as she was lethargic with altered mental status and hypoxia. The patient had cough, congestion, fever, with increasing O2 requirements. The patient here was noted to have bilateral pulmonary infiltrate, thought to be congestive heart failure. The patient has been started on vancomycin and meropenem and consult has been requested. The patient is was placed on BiPAP. She nods to say she is feeling okay. She says her breathing is better through nodding. No much communication is possible. According to nursing, there is no nausea, vomiting, diarrhea, fever, chest pain, abdominal pain. Nursing also reported the patient is experiencing dysphagia, and is being evaluated by a speech therapist. Patient seen and examined. Patient was resting with NAD. Discussed with RN Vitals/I&O Vitals/I&O: Vital Signs Date Time Temp Pulse Resp B/P (MAP) Pulse Ox O2 Delivery O2 Flow Rate FiO2 08/25/19 11:59 93 Nasal Cannula 4.0 08/25/19 11:05 94 134/60 08/25/19 10:43 98.4 22 98.4 I & O 08/24/19 08/24/19 08/25/19 14:59 22:59 06:59 Intake Total 100 ml 620 ml Output Total 700 ml 1100 ml 425 ml Balance -700 ml -1000 ml 195 ml Physical Exam Physical Exam: GENERAL: Awake female, not in any distress, although on a BiPAP. VITAL SIGNS: Stable, afebrile. HEENT: NAD. NECK: Supple, no JVP, no lymphadenopathy. LUNGS: Clear. HEART: S1, S2 regular. ABDOMEN: Benign. EXTREMITIES: No edema, cyanosis. SKIN: Unremarkable. NEUROLOGIC: The patient is neurologically awake, nods appropriately, but not much further communication right now is possible, does move all the extremities. General: Alert, Cooperative, No acute distress Heart: Regular rate, Normal S1, Normal S2 Lungs: Crackles Abdomen: Soft, No tenderness, Other (obese ) Extremities: Other (1+ bilateral LE edema ) Skin: No significant lesion Labs Labs: Laboratory Tests Test 08/24/19 13:40 08/24/19 17:23 08/24/19 20:34 08/25/19 05:30 O2 Saturation 98 % (92-99) Arterial Blood pH 7.44 (7.35-7.45) Arterial Blood pCO2 at Patient Temp 58 mmHg (35-46) Arterial Blood pO2 at Patient Temp 100 mmHg (65-108) Arterial Blood HCO3 39 mmol/L (21-28) Arterial Blood Base Excess 12 mmol/L (-3-3) Glucose (Fingerstick) 135 mg/dL (70-99) 126 mg/dL (70-99) White Blood Count 7.9 x10^3/uL (4.0-11.0) Red Blood Count 3.97 x10^6/uL (3.50-5.40) Hemoglobin 11.1 g/dL (12.0-15.5) Hematocrit 34.6 % (36.0-47.0) Mean Corpuscular Volume 87 fL (79-100) Mean Corpuscular Hemoglobin 28 pg (25-35) Mean Corpuscular Hemoglobin Concent 32 g/dL (31-37) Red Cell Distribution Width 16.4 % (11.5-14.5) Platelet Count 152 x10^3/uL (140-400) Neutrophils (%) (Auto) 80 % (31-73) Lymphocytes (%) (Auto) 11 % (24-48) Monocytes (%) (Auto) 9 % (0-9) Eosinophils (%) (Auto) 0 % (0-3) Basophils (%) (Auto) 0 % (0-3) Neutrophils # (Auto) 6.3 x10^3/uL (1.8-7.7) Lymphocytes # (Auto) 0.9 x10^3/uL (1.0-4.8) Monocytes # (Auto) 0.7 x10^3/uL (0.0-1.1) Eosinophils # (Auto) 0.0 x10^3/uL (0.0-0.7) Basophils # (Auto) 0.0 x10^3/uL (0.0-0.2) Sodium Level 150 mmol/L (136-145) Potassium Level 3.6 mmol/L (3.5-5.1) Chloride Level 105 mmol/L (98-107) Carbon Dioxide Level 44 mmol/L (21-32) Anion Gap 1 (6-14) Blood Urea Nitrogen 10 mg/dL (7-20) Creatinine 0.4 mg/dL (0.6-1.0) Estimated GFR (Cockcroft-Gault) 160.7 BUN/Creatinine Ratio 25 (6-20) Glucose Level 130 mg/dL (70-99) Calcium Level 9.0 mg/dL (8.5-10.1) Magnesium Level 1.7 mg/dL (1.8-2.4) Total Bilirubin 0.4 mg/dL (0.2-1.0) Aspartate Amino Transf (AST/SGOT) 16 U/L (15-37) Alanine Aminotransferase (ALT/SGPT) 6 U/L (14-59) Alkaline Phosphatase 78 U/L (46-116) Total Protein 7.2 g/dL (6.4-8.2) Albumin 2.0 g/dL (3.4-5.0) Albumin/Globulin Ratio 0.4 (1.0-1.7) Test 08/25/19 07:18 08/25/19 12:05 Glucose (Fingerstick) 108 mg/dL (70-99) 156 mg/dL (70-99) Review of Systems Review of Systems: Patient was resting with NAD. According to nursing, there is no nausea, vomiting, diarrhea, fever, chest pain, abdominal pain. Assessment and Plan Assessmemt and Plan Problems Medical Problems: (1) HCAP (healthcare-associated pneumonia) Status: Acute (2) Hypoxia Status: Acute (3) UTI (urinary tract infection) Status: Acute Assessment: Acute Hypoxia. Patient was seen and examined. Patient was resting with NAD Plan: 1. Continue Antibiotics 2. DUONEBS 3. Full Code 4. PT/OT/ST 5. O2 PNC 6. Evaluate for dysphagia and possible trach. 7. palliative care consult pending. Comment Review of Relevant I have reviewed the following items katie (where applicable) has been applied. Medications: Current Medications Medications (Trade) Dose Ordered Sig/Holden Route PRN Reason Start Time Stop Time Status Last Admin Dose Admin Albuterol Sulfate (Ventolin Neb Soln) 2.5 mg RTQID NEB 08/24/19 20:00 08/25/19 11:57 Acetaminophen (Tylenol) 500 mg PRN Q6HRS PRN PO MILD PAIN / TEMP 08/24/19 19:30 08/24/19 19:35 Info (Anti-Coagulation Monitoring By Pharmacy) 1 each PRN DAILY PRN MC SEE COMMENTS 08/25/19 10:30 08/25/19 10:22 CHINA GOYAL III DO Aug 25, 2019 12:25
[2019-08-25] MEDS ORDERED: MAGNESIUM SULFATE 2GM 50 ML IV ONE (13:00)
[2019-08-25 14:05] LABS: VANC TR 14.6 mcg/mL (10.0-20.0)
--- NOTE | 2019-08-25 14:19 | NUR ---
Pharmacy Vancomycin Dosing Note S: Consulted to monitor and dose vancomycin started 08/22/19. O: ROGE RAM is a 64 year old F with Bacteremia, HCAP Other Antibiotics: MERREM 1G IV Q8HRS LABS: Last BUN: 10 Last Creatinine: 0.4 Creatinine Clearance: > 120 mL/min Last WBC: 7.9 Last Procalcitonin: < 0.1 Tmax (past 24 hours): 102.6 Microbiology: 08/23: 08/22 BCX GPC CLUSTERS 2/4 BOTTLES I/O: 1959/1349 Drug Levels: Last Trough level: 14.6 on 08/25/19 at 1335 Last dose given 08/25/19 at 0206 Vancomycin Dosing: Dosing Weight: Actual Target Trough: 15-20 A: Based on: trough P: 1. Continue Vancomycin 1500 mg IV q12h 2. Follow up Trough level in 5 days if needed 3. Pharmacy will continue to monitor, follow and adjust therapy as needed. Nicolasa Arriaga RPH, 08/25/19 [id number]
[2019-08-25 14:44] VITALS: BP 109/57
[2019-08-25] MEDS: RIVAROXABAN 10 MG TABLET. PO SCH (18:32)
[2019-08-25 18:35] VITALS: BP 141/92
[2019-08-25] MEDS: traZODone 50 MG TABLET. PO SCH (21:28)
[2019-08-25] MEDS: risperiDONE 1 MG TABLET. PO SCH (21:28)
[2019-08-25] MEDS: DIVALPROEX EXTENDED RELEASE 250 MG TAB.ER.24H. PO SCH (21:29)
[2019-08-25 23:00] VITALS: BP 135/86
[2019-08-26] MEDS: traMADol 50 MG TABLET PO SCH ×3 (00:21→12:00)
[2019-08-26] MEDS: VANCOMYCIN 1.5 GM in IV NORMAL SALINE 500ML BAG 500 ML IV SCH (01:52)
[2019-08-26 03:00] VITALS: BP 116/58
[2019-08-26] MEDS: MEROPENEM 1 GM in IV NORMAL SALINE 100ML 100 ML IV SCH (06:06)
[2019-08-26] MEDS: LEVOTHYROXINE 175 MCG TABLET PO SCH (06:06)
[2019-08-26 07:00] VITALS: BP 144/67
[2019-08-26] MEDS: INSULIN LISPRO 300 UNITS/3 ML VIAL. SQ SCH ×2 (08:00→12:00)
[2019-08-26] MEDS: ALBUTEROL SULFATE 2.5 MG/3 ML NEBU. NEB SCH ×2 (08:21→11:39)
--- NOTE | 2019-08-26 08:36 | PDOC ---
Infectious Disease Note Subjective Subjective says she is feeling better ROS ROS no n/v/d/sob Vital Sign Vital Signs Vital Signs Date Time Temp Pulse Resp B/P (MAP) Pulse Ox O2 Delivery O2 Flow Rate FiO2 08/26/19 08:24 93 Nasal Cannula 6.0 08/26/19 07:00 99.4 90 22 144/67 (92) 99.4 Physical Exam PHYSICAL EXAM GENERAL: Awake female, not in any distress, VITAL SIGNS: Stable, afebrile. HEENT: NAD. NECK: Supple, no JVP, no lymphadenopathy. LUNGS: Clear. HEART: S1, S2 regular. ABDOMEN: Benign. EXTREMITIES: No edema, cyanosis. SKIN: Unremarkable. NEUROLOGIC: The patient is neurologically awake, nods appropriately, Labs Lab Laboratory Tests Test 08/25/19 12:05 08/25/19 13:35 08/25/19 17:09 08/25/19 21:01 Glucose (Fingerstick) 156 mg/dL (70-99) 101 mg/dL (70-99) 130 mg/dL (70-99) Vancomycin Level Trough 14.6 mcg/mL (10.0-20.0) Vancomycin Last Dose Date 08/25/19 Vancomycin Last Dose Time 0200 Test 08/26/19 08:23 Glucose (Fingerstick) 130 mg/dL (70-99) Micro BC +, coag neg staph Objective Assessment 1. Urinary tract infection. 2. Bilateral pulmonary infiltrates, most likely to be congestive heart failure, infection cannot be entirely ruled out. 3. Morbid obesity. 4. Obstructive sleep apnea. 5. Diabetes. 6. Hypertension. 7. Gastroesophageal reflux disease. 8. Bipolar disorder. Plan Plan of Care d/c vanc and zosyn supportive care follow cultures ok to d/c to [facility] CHIRAG HAWLEY MD Aug 26, 2019 08:36
[2019-08-26] MEDS: busPIRone 5 MG TABLET. PO SCH (08:53)
[2019-08-26] MEDS: DIVALPROEX EXTENDED RELEASE 500 MG TAB.ER.24H. PO SCH (08:53)
[2019-08-26] MEDS: PILOCARPINE 5 MG TABLET. PO SCH ×2 (08:53→15:09)
[2019-08-26] MEDS: ACETAMINOPHEN 500 MG TABLET PO SCH (08:54)
[2019-08-26] MEDS: PREGABALIN 75 MG CAPSULE PO SCH ×2 (08:54→15:09)
[2019-08-26] MEDS: amLODIPine BESYLATE 10 MG TABLET PO SCH (08:54)
[2019-08-26] MEDS: POTASSIUM CHLORIDE 20 MEQ TABLET.ER. PO SCH (08:55)
[2019-08-26] MEDS: METHYL SALICYLATE/MENTHOL TOPICAL OINTMENT 57GM TUBE. TP SCH ×2 (08:55→15:11)
[2019-08-26] MEDS: CETIRIZINE HCL 10 MG TABLET. PO SCH (08:55)
[2019-08-26] MEDS: LACTOBACILLUS RHAMNOSUS GG 1 CAPSULE. PO SCH (08:55)
[2019-08-26] MEDS: DOCUSATE SODIUM 100 MG CAPSULE. PO SCH (08:55)
[2019-08-26] MEDS ORDERED: FUROSEMIDE 40 MG/4 ML VIAL. IVP SCH (09:00)
--- NOTE | 2019-08-26 09:17 | PDOC ---
PULMONARY PROGRESS NOTES Subjective PT ON BIPAP QHS NOW OFF STILL SOA Vitals Vital Signs Date Time Temp Pulse Resp B/P (MAP) Pulse Ox O2 Delivery O2 Flow Rate FiO2 08/26/19 08:54 90 08/26/19 08:24 93 Nasal Cannula 6.0 08/26/19 07:00 99.4 22 144/67 (92) 99.4 ROS: No Nausea, No Chest Pain, No Abdominal Pain, No Increase Cough General: Alert Lungs: Crackles Cardiovascular: S1, S2 Abdomen: Soft, Other Extremities: Other (EDEMA) Skin: Warm Labs Laboratory Tests Test 08/24/19 12:11 08/24/19 13:40 08/24/19 17:23 08/24/19 20:34 Glucose (Fingerstick) 117 mg/dL (70-99) 135 mg/dL (70-99) 126 mg/dL (70-99) O2 Saturation 98 % (92-99) Arterial Blood pH 7.44 (7.35-7.45) Arterial Blood pCO2 at Patient Temp 58 mmHg (35-46) Arterial Blood pO2 at Patient Temp 100 mmHg (65-108) Arterial Blood HCO3 39 mmol/L (21-28) Arterial Blood Base Excess 12 mmol/L (-3-3) Test 08/25/19 05:30 08/25/19 07:18 08/25/19 12:05 08/25/19 13:35 White Blood Count 7.9 x10^3/uL (4.0-11.0) Red Blood Count 3.97 x10^6/uL (3.50-5.40) Hemoglobin 11.1 g/dL (12.0-15.5) Hematocrit 34.6 % (36.0-47.0) Mean Corpuscular Volume 87 fL (79-100) Mean Corpuscular Hemoglobin 28 pg (25-35) Mean Corpuscular Hemoglobin Concent 32 g/dL (31-37) Red Cell Distribution Width 16.4 % (11.5-14.5) Platelet Count 152 x10^3/uL (140-400) Neutrophils (%) (Auto) 80 % (31-73) Lymphocytes (%) (Auto) 11 % (24-48) Monocytes (%) (Auto) 9 % (0-9) Eosinophils (%) (Auto) 0 % (0-3) Basophils (%) (Auto) 0 % (0-3) Neutrophils # (Auto) 6.3 x10^3/uL (1.8-7.7) Lymphocytes # (Auto) 0.9 x10^3/uL (1.0-4.8) Monocytes # (Auto) 0.7 x10^3/uL (0.0-1.1) Eosinophils # (Auto) 0.0 x10^3/uL (0.0-0.7) Basophils # (Auto) 0.0 x10^3/uL (0.0-0.2) Sodium Level 150 mmol/L (136-145) Potassium Level 3.6 mmol/L (3.5-5.1) Chloride Level 105 mmol/L (98-107) Carbon Dioxide Level 44 mmol/L (21-32) Anion Gap 1 (6-14) Blood Urea Nitrogen 10 mg/dL (7-20) Creatinine 0.4 mg/dL (0.6-1.0) Estimated GFR (Cockcroft-Gault) 160.7 BUN/Creatinine Ratio 25 (6-20) Glucose Level 130 mg/dL (70-99) Calcium Level 9.0 mg/dL (8.5-10.1) Magnesium Level 1.7 mg/dL (1.8-2.4) Total Bilirubin 0.4 mg/dL (0.2-1.0) Aspartate Amino Transf (AST/SGOT) 16 U/L (15-37) Alanine Aminotransferase (ALT/SGPT) 6 U/L (14-59) Alkaline Phosphatase 78 U/L (46-116) Total Protein 7.2 g/dL (6.4-8.2) Albumin 2.0 g/dL (3.4-5.0) Albumin/Globulin Ratio 0.4 (1.0-1.7) Glucose (Fingerstick) 108 mg/dL (70-99) 156 mg/dL (70-99) Vancomycin Level Trough 14.6 mcg/mL (10.0-20.0) Vancomycin Last Dose Date 08/25/19 Vancomycin Last Dose Time 0200 Test 08/25/19 17:09 08/25/19 21:01 08/26/19 08:23 Glucose (Fingerstick) 101 mg/dL (70-99) 130 mg/dL (70-99) 130 mg/dL (70-99) Laboratory Tests Test 08/25/19 12:05 08/25/19 13:35 08/25/19 17:09 08/25/19 21:01 Glucose (Fingerstick) 156 mg/dL (70-99) 101 mg/dL (70-99) 130 mg/dL (70-99) Vancomycin Level Trough 14.6 mcg/mL (10.0-20.0) Vancomycin Last Dose Date 08/25/19 Vancomycin Last Dose Time 0200 Test 08/26/19 08:23 Glucose (Fingerstick) 130 mg/dL (70-99) Medications Active Scripts Medications Dose Route/Sig Max Daily Dose Days Date Category Depakote (Divalproex Sodium) 500 Mg Tablet.dr 1,250 Mg PO HS 08/22/19 Reported Xarelto (Rivaroxaban) 20 Mg Tablet 20 Mg PO DAILY 08/22/19 Reported Cavilon Durable Barrier (Dimethicone) 92 Gm Cream..g. 92 Gm TP DAILY 08/22/19 Reported Buspirone Hcl 5 Mg Tablet 2.5 Mg PO BID 08/22/19 Reported Tramadol Hcl 100 Mg Tab.er.24h 100 Mg PO Q6HRS 08/22/19 Reported Amlodipine Besylate 10 Mg Tablet 10 Mg PO DAILY 08/22/19 Reported Humalog (Insulin Lispro) 100 Unit/1 Ml Insuln.pen 0 Units SQ TIDWMEALS 14 07/22/19 Rx Culturelle (Lactobacillus Rhamnosus Gg) 1 Each Cap.sprink 1 Cap PO BID 30 07/22/19 Rx [Acetazolamide Sodium] 500 MG Vial 500 Mg IVP DAILY 14 07/22/19 Rx Vitamin D (Cholecalciferol (Vitamin D3)) 5,000 Unit Capsule 5,000 Unit PO WEEKLY 02/02/19 Reported Tylenol Extra Strength (Acetaminophen) 500 Mg Tablet 2 Mg PO DAILY 02/02/19 Reported Trazodone Hcl 50 Mg Tablet 1 Tab PO QHS 02/02/19 Reported Risperdal (Risperidone) 1 Mg Tablet 1 Mg PO QHS 02/02/19 Reported Proventil Hfa Inhaler (Albuterol Sulfate) 6.7 Gm Hfa.aer.ad 1 Puff IH PRN Q4HRS PRN 02/02/19 Reported Potassium Chloride 20 Meq Tablet.er 20 Meq PO DAILY 02/02/19 Reported Miralax (Polyethylene Glycol 3350) 17 Gm Powd.pack 1 Packet PO DAILY PRN 02/02/19 Reported Pilocarpine Hcl 5 Mg Tablet 10 Mg PO TID 02/02/19 Reported Lyrica (Pregabalin) 75 Mg Capsule 1 Cap PO TID 02/02/19 Reported Levothyroxine Sodium 175 Mcg Tablet 1 Tab PO DAILY 02/02/19 Reported Divalproex Sodium Er (Divalproex Sodium) 500 Mg Tab.er.24h 1 Tab PO DAILY 02/02/19 Reported Colace (Docusate Sodium) 100 Mg Capsule 1 Cap PO BID 02/02/19 Reported Biofreeze (Menthol) 118 Ml Gel..ml. 118 Ml TP TID 02/02/19 Reported Albuterol Sulfate Neb Soln (Albuterol Sulfate) 2.5 Mg/3 Ml Vial.neb 1 Vial NEB PRN Q4HRS 02/02/19 Reported Impression . IMPRESSION: 1. Acute on chronic hypoxemic hypercapnic respiratory failure. 2. Abnormal CT revealing ground glass opacities compatible with pulmonary edema, nonspecific alveolitis, possibly infectious in origin. 3. Urinary tract infection. 4. Morbid obesity. 5. Obstructive sleep apnea/obesity hypoventilation syndrome. 6. Leukopenia. 7. Diabetes. 8. Hypernatremia. 9. Severe protein malnutrition, present upon admission. IMPRESSION: 1. No evidence of pulmonary embolism. Suboptimal visualization of the segmental pulmonary artery branches, however. 2. There are couple of left pulmonary nodules each measuring 8 mm. At least one of these appears stable, but the other appears more dense on today's exam. As per revised Fleischner guidelines, recommend follow-up CT chest in 3-6 months. 3. Development of mild groundglass opacities throughout both lungs, as well as some more patchy atelectasis/infiltrate, suggesting infectious/inflammatory etiology. 4. Hilar or mediastinal lymph node enlargement, to some extent was seen on the previous noncontrast exam of indeterminate etiology. 5. Splenomegaly, stable. Plan . REPEAT CT 4-6 MONTHS BIPAP QHS ANTIBX PER SAUD MARTÍNEZ MD Aug 26, 2019 09:17
[2019-08-26] MEDS: ANTI-COAG MONITOR BY PHARMACY. MC PRN (10:17)
[2019-08-26 11:00] VITALS: BP 133/64
--- NOTE | 2019-08-26 11:57 | SNU/HH DC ---
DISCHARGE ORDERS DISCHARGE INFORMATION: FINAL DIAGNOSIS Problems Medical Problems: (1) HCAP (healthcare-associated pneumonia) Status: Acute (2) Hypoxia Status: Acute (3) UTI (urinary tract infection) Status: Acute CONDITION ON DISCHARGE: Stable CODE STATUS: Code Status: Full LONG-TERM: SNF STAY <30 DAYS: No HOSPICE: HOSPICE: No HOSPICE EVAL & TREAT: No LTAC: ADMIT TO LTAC: No POST DISCHARGE ORDERS: ACTIVITY ORDERS: Activity as tolerated WEIGHT BEARING STATUS: As tolerated DIET AFTER DISCHARGE: Cardiac CHECKS AFTER DISCHARGE: CHECKS AFTER DISCHARGE: Check blood press - daily, Check blood sugar, ac/hs, Check your Temp as needed, Weigh Yourself Daily DISCHARGE MEDICATIONS: Home Meds Active Scripts Insulin Lispro (HUMALOG) 100 Unit/1 Ml Insuln.pen, 0 UNITS SQ TIDWMEALS for glucose for 14 Days, #1 EACH Prov:SHANTA ALBRECHT MD 07/22/19 Lactobacillus Rhamnosus Gg (CULTURELLE) 1 Each Cap.sprink, 1 CAP PO BID for supplement for 30 Days, #60 CAP Prov:SHANTA ALBRECHT MD 07/22/19 [acetaZOLAMIDE SODIUM INJ] 500 MG VIAL No Conflict Check, 500 MG IVP DAILY for see orders for 14 Days, #14 EACH Prov:SHANTA ALBRECHT MD 07/22/19 Reported Medications Divalproex Sodium (DEPAKOTE) 500 Mg Tablet.dr, 1250 MG PO HS for bipolar disorder, TAB 08/22/19 Rivaroxaban (XARELTO) 20 Mg Tablet, 20 MG PO DAILY for chronic embolism & thrombosis, TAB 08/22/19 Dimethicone (CAVILON DURABLE BARRIER) 92 Gm Cream..g., 92 GM TP DAILY for scabs, EACH 08/22/19 Buspirone Hcl (BUSPIRONE HCL) 5 Mg Tablet, 2.5 MG PO BID for anxiety, TAB 08/22/19 Tramadol Hcl (TRAMADOL HCL) 100 Mg Tab.er.24h, 100 MG PO Q6HRS for pain, TAB 08/22/19 Amlodipine Besylate (AMLODIPINE BESYLATE) 10 Mg Tablet, 10 MG PO DAILY for htn, TAB 08/22/19 Cholecalciferol (Vitamin D3) (Vitamin D) 5,000 Unit Capsule, 5000 UNIT PO WEEKLY for vit d deficiency, CAP 02/02/19 Acetaminophen (TYLENOL EXTRA STRENGTH) 500 Mg Tablet, 2 MG PO DAILY for pain, TAB 02/02/19 Trazodone Hcl (TRAZODONE HCL) 50 Mg Tablet, 1 TAB PO QHS for depression, #30 TAB 1 Refill 02/02/19 Risperidone (RISPERDAL) 1 Mg Tablet, 1 MG PO QHS for MOOD STABILIZER, TAB 02/02/19 Albuterol Sulfate (PROVENTIL HFA INHALER) 6.7 Gm Hfa.aer.ad, 1 PUFF IH PRN Q4HRS PRN for FOR ASTHMA, INHALER 0 Refills 02/02/19 Potassium Chloride (POTASSIUM CHLORIDE) 20 Meq Tablet.er, 20 MEQ PO DAILY for hypokalemia, TAB.SR 02/02/19 Polyethylene Glycol 3350 (MIRALAX) 17 Gm Powd.pack, 1 PACKET PO DAILY PRN for CONSTIPATION, #30 PACKET 3 Refills 02/02/19 Pilocarpine Hcl (PILOCARPINE HCL) 5 Mg Tablet, 10 MG PO TID for dry mouth, TAB 02/02/19 Pregabalin (LYRICA) 75 Mg Capsule, 1 CAP PO TID for neuropathy, #60 CAP 1 Refill 02/02/19 Levothyroxine Sodium (LEVOTHYROXINE SODIUM) 175 Mcg Tablet, 1 TAB PO DAILY for hypothyroid, #30 TAB 5 Refills 02/02/19 Divalproex Sodium (DIVALPROEX SODIUM ER) 500 Mg Tab.er.24h, 1 TAB PO DAILY for bipolar , #60 TAB 02/02/19 Docusate Sodium (COLACE) 100 Mg Capsule, 1 CAP PO BID for constipation, #30 CAP 02/02/19 Menthol (BIOFREEZE) 118 Ml Gel..ml., 118 ML TP TID for elisha shoulder pain, EACH 02/02/19 Albuterol Sulfate (ALBUTEROL SULFATE NEB SOLN) 2.5 Mg/3 Ml Vial.neb, 1 VIAL NEB PRN Q4HRS for copd, #50 VIAL 02/02/19 Discontinued Reported Medications Loratadine (LORATADINE) 10 Mg Tablet, 1 TAB PO DAILY for allergies, #30 TAB 5 Refills 02/02/19 CHINA GOYAL III DO Aug 26, 2019 11:57
--- NOTE | 2019-08-26 12:21 | NUR ---
SS following up with discharge planning. Discharge orders received for return to [facility], ; fax [phone]. SS phoned and faxed discharge orders to [facility]. Pt will discharge today and return to [facility] at 1430 via [facility] ambulance, . Pt, pt's RN, and pt's family notified.
--- NOTE | 2019-08-26 12:56 | PDOC ---
[employer] PROGRESS NOTE Chief Complaint Chief Complaint Acute hypoxia - with CXR concerning for pulmonary HTN. BIPAP 01/07 now Dysuria - grossly abnormal UA, given empiric antibiotics Alkalosis - possibly from diuresis. I see her elevated BNP, this clinically may be CHF, but looks more like pulmonary HTN and possibly viral pulm infection. Consult pulm Bipolar Disorder - with anxiety and depression. Will check depakote level, cont meds COPD on 2l NCO2 - worsening now. Consult pulm Constipation - cont bowel regimen Diabetes-Type II - sliding scale in house GERD - cont meds High Cholesterol - cont statin Hypertension - cont meds Hypothyroid - will check TSH, cont meds AJ on CPAP - 9cm H2O QHS at [facility]. Continue FEN - ADA diet PPX - lovenox DNR/DNI Dispo - inpatient for acute hypoxia History of Present Illness History of Present Illness 08/26/19 Pt seen and examined. Pt was alert and oriented. Discussed discharge with patient. Discussed medications with patient. Discussed with nurse. Vitals/I&O Vitals/I&O: Vital Signs Date Time Temp Pulse Resp B/P (MAP) Pulse Ox O2 Delivery O2 Flow Rate FiO2 08/26/19 11:39 90 Nasal Cannula 6.0 08/26/19 11:00 98.2 94 22 133/64 (87) 98.2 I & O 08/25/19 08/25/19 08/26/19 15:00 23:00 07:00 Intake Total 714 ml 100 ml 150 ml Output Total 500 ml 1100 ml 300 ml Balance 214 ml -1000 ml -150 ml Physical Exam Physical Exam: GENERAL: Awake female, not in any distress, VITAL SIGNS: Stable, afebrile. HEENT: NAD. NECK: Supple, no JVP, no lymphadenopathy. LUNGS: Clear. HEART: S1, S2 regular. ABDOMEN: Benign. EXTREMITIES: No edema, cyanosis. SKIN: Unremarkable. NEUROLOGIC: The patient is neurologically awake, nods appropriately, General: Alert, Cooperative, No acute distress Heart: Regular rate, Normal S1, Normal S2 Lungs: Crackles Abdomen: Soft, No tenderness, Other (obese ) Extremities: Other (1+ bilateral LE edema ) Skin: Other (skin sores on chest. Pt reports picking at skin.) Labs Labs: Laboratory Tests Test 08/25/19 13:35 08/25/19 17:09 08/25/19 21:01 08/26/19 08:23 Vancomycin Level Trough 14.6 mcg/mL (10.0-20.0) Vancomycin Last Dose Date 08/25/19 Vancomycin Last Dose Time 0200 Glucose (Fingerstick) 101 mg/dL (70-99) 130 mg/dL (70-99) 130 mg/dL (70-99) Test 08/26/19 12:07 Glucose (Fingerstick) 133 mg/dL (70-99) Review of Systems Review of Systems: Improvement in respiration. No chest pain. Assessment and Plan Assessmemt and Plan Problems Medical Problems: (1) HCAP (healthcare-associated pneumonia) Status: Acute (2) Hypoxia Status: Acute (3) UTI (urinary tract infection) Status: Acute Acute hypoxia - with CXR concerning for pulmonary HTN. BIPAP 01/07 now Dysuria - grossly abnormal UA, given empiric antibiotics Alkalosis - possibly from diuresis. I see her elevated BNP, this clinically may be CHF, but looks more like pulmonary HTN and possibly viral pulm infection. Consult pulm Bipolar Disorder - with anxiety and depression. Will check depakote level, cont meds COPD on 2l NCO2 - worsening now. Consult pulm Constipation - cont bowel regimen Diabetes-Type II - sliding scale in house GERD - cont meds High Cholesterol - cont statin Hypertension - cont meds Hypothyroid - will check TSH, cont meds AJ on CPAP - 9cm H2O QHS at [facility]. Continue Will discharge today Resume home meds PO antibiotics OK to remove venous access medication line DNR Comment Review of Relevant I have reviewed the following items katie (where applicable) has been applied. Medications: Current Medications Medications (Trade) Dose Ordered Sig/Holden Route PRN Reason Start Time Stop Time Status Last Admin Dose Admin Vancomycin HCl (Vancomycin Trough Level) 1 each 1X ONCE MC 08/25/19 13:30 08/25/19 13:31 DC 08/25/19 13:30 Magnesium Sulfate 50 ml @ 25 mls/hr 1X ONCE IV 08/25/19 13:00 08/25/19 14:59 DC 08/25/19 12:45 Furosemide (Lasix) 40 mg DAILY IVP 08/26/19 09:00 08/26/19 09:00 CHINA GOYAL III DO Aug 26, 2019 12:56
[2019-08-26] MEDS ORDERED: POTA20TA84 PO (13:59)
[2019-08-26] MEDS ORDERED: FURO40TA4 PO (14:00)
--- NOTE | 2019-08-26 14:57 | DS ---
DATE OF DISCHARGE: 08/26/2019 ADMISSION DIAGNOSES: Pneumonia and hypoxia. DISCHARGE DIAGNOSES: Resolving pneumonia, resolving hypoxia, cognitively challenged, chronic pain, obese. HOSPITAL COURSE: The patient is a pleasant 64-year-old female, who is cognitively challenged. Basically, she presented with pneumonia. She was admitted. We gave her IV antibiotics, breathing treatments, and oxygen. Continue her home meds. This morning, I saw her and examined her, she was back to her baseline. We discharged her back to long-term care at [facility]. DISPOSITION: Long-term care. ACTIVITY: As tolerated. DIET: Low sodium. MEDICATIONS: Please see the MRAD. TOTAL TIME: 34 minutes. CHINA GOYAL DO DR: HUGO/ted JOB#: [id number] / [id number]
[2019-08-26] MEDS: ACETAMINOPHEN 500 MG TABLET PO PRN (15:09)
[2019-08-29] MEDS ORDERED: CHOLECALCIFEROL (VITAMIN D3) 5,000 UNIT CAPSULE PO SCH (09:00)
== END 2019-08-26 15:20 | disposition home or self-care (01) | DRG 871 ==
LOC: ER 09:18 → 2 NORTH 11:31
PROVIDERS: ADMIT Internal Medicine; ATTEND Internal Medicine
PROC: 5A09357 Assistance with Respiratory Ventilation, Less than 24 Consecutive Hours, Continuous Positive Airway Pressure (ICD-10-PCS; principal; 2019-08-23)
PROC: 5A09357 Assistance with Respiratory Ventilation, Less than 24 Consecutive Hours, Continuous Positive Airway Pressure (ICD-10-PCS; 2019-08-24)
PROC: 5A09357 Assistance with Respiratory Ventilation, Less than 24 Consecutive Hours, Continuous Positive Airway Pressure (ICD-10-PCS; 2019-08-25)
PROC: 5A09357 Assistance with Respiratory Ventilation, Less than 24 Consecutive Hours, Continuous Positive Airway Pressure (ICD-10-PCS; 2019-08-26)
DX: A41.9 Sepsis, unspecified organism (principal); J96.21 Acute and chronic respiratory failure with hypoxia; E43 Unspecified severe protein-calorie malnutrition; J18.9 Pneumonia, unspecified organism; J96.22 Acute and chronic respiratory failure with hypercapnia; I50.43 Acute on chronic combined systolic (congestive) and diastolic (congestive) heart failure; N39.0 Urinary tract infection, site not specified; J44.0 Chronic obstructive pulmonary disease with (acute) lower respiratory infection; E87.3 Alkalosis; Z68.42 Body mass index [BMI] 45.0-49.9, adult; E66.2 Morbid (severe) obesity with alveolar hypoventilation; E87.0 Hyperosmolality and hypernatremia; J98.11 Atelectasis; L03.119 Cellulitis of unspecified part of limb; M19.90 Unspecified osteoarthritis, unspecified site; F41.9 Anxiety disorder, unspecified; F31.9 Bipolar disorder, unspecified; I11.0 Hypertensive heart disease with heart failure; E11.9 Type 2 diabetes mellitus without complications; E03.9 Hypothyroidism, unspecified; K21.9 Gastro-esophageal reflux disease without esophagitis; E78.00 Pure hypercholesterolemia, unspecified; I89.0 Lymphedema, not elsewhere classified; F29 Unspecified psychosis not due to a substance or known physiological condition; K59.00 Constipation, unspecified; Z66 Do not resuscitate; Y95 Nosocomial condition; E83.42 Hypomagnesemia; E78.5 Hyperlipidemia, unspecified; F79 Unspecified intellectual disabilities; E87.6 Hypokalemia; G89.29 Other chronic pain; G93.89 Other specified disorders of brain; R13.10 Dysphagia, unspecified; Z99.81 Dependence on supplemental oxygen; Z88.5 Allergy status to narcotic agent; Z88.8 Allergy status to other drugs, medicaments and biological substances; Z91.040 Latex allergy status; Z74.01 Bed confinement status; Z87.440 Personal history of urinary (tract) infections; Z99.3 Dependence on wheelchair
CPT/HCPCS: 36415; 36600; 70450; 71045; 71275; 80048; 80053; 80061; 80202; 81001; 82565; 82805; 82962; 83605; 83735; 83880; 84145; 85007; 85025; 87040; 87077; 87086; 87205; 90471; 90686; 93005; 93306; 94640; 94660; 94760; 96361; 96365; 96366; 96375; J1815; J1940; J2185; J3370; J3475; J3490; J7030; J7040; J7613; J7620; Q9967; 92610; 99291-25; G0378

== ENCOUNTER 2019-08-27 09:35 | Emergency (ER) | payer MEDICARE, MEDICAID ==
[~2019-08-27] VITALS: Ht 172.7 cm; Wt 132.4 kg
[~2019-08-27 09:35] MED LIST changes: +ALBU2.5V8 IH; +AMLO10TA8 PO; +BUSP5TAB PO; +DIME92CR TP; +DIVA500T2 PO; +FURO40TA4 PO; +OXYB15TA PO; -OXYB15TA17 PO; +POTA20TA84 PO; -PROVENTIL HFA6.7 GM IH; +TRAM100T30 PO
[2019-08-27] MEDS ORDERED: IV NORMAL SALINE 1000ML BAG 1,000 ML IV SCH (09:40)
[2019-08-27] MEDS ORDERED: methylPREDNISolone SOD SUCC PF 125 MG/2 ML VIAL. IV ONE (09:45)
[2019-08-27] MEDS ORDERED: ACETAMINOPHEN 325 MG TABLET. PO ONE (09:45)
[2019-08-27] MEDS ORDERED: IPRATRPIUM/ALBUTEROL 0.5/2.5MG 3 ML NEBU. NEB ONE (09:45)
[2019-08-27] MEDS ORDERED: IV NORMAL SALINE 1000ML BAG 1,000 ML IV ONE (09:45)
--- NOTE | 2019-08-27 09:51 | PDOC1 ---
History and Physical Date of Admission Date of Admission DATE: 08/27/19 TIME: 09:50 Identification/Chief Complaint Chief Complaint seen in er in acute resp failure. placed on bipap, just dismissed to SNF BED YESTERDAY// DNR//DNI Designation Past Medical History Past Medical History Past Medical History Cardiovascular: HTN Pulmonary: COPD, Other GI: Constipation, GERD Heme/Onc: No pertinent hx Hepatobiliary: No pertinent hx Psych: Anxiety, Bipolar, Depression, Psychosis Rheumatologic: No pertinent hx Infectious disease: No pertinent hx Renal/: No pertinent hx Endocrine: Diabetes Past Surgical History Past Surgical History: Other Family History Family History: Family History Unknown Social History Smoke: No ALCOHOL: none Drugs: None Cardiovascular: CHF, HTN, Hyperlipidemia Pulmonary: COPD, Other CENTRAL NERVOUS SYSTEM: Periperal neuropathy, Other GI: GERD Heme/Onc: No pertinent hx Hepatobiliary: No pertinent hx Psych: Anxiety, Bipolar, Depression Musculoskeletal: Osteoarthritis Rheumatologic: No pertinent hx Infectious disease: No pertinent hx Renal/: No pertinent hx Endocrine: Diabetes, Hypothyroidism Past Surgical History Past Surgical History: No pertinent history Family History Family History: Cancer, Hypertension Social History Smoke: Quit ALCOHOL: none Drugs: None Current Medications Current Medications Current Medications Acetaminophen (Tylenol) 1,000 mg 1X ONCE PO ; Start 08/27/19 at 09:45; Stop 08/27/19 at 09:46; Status DC Sodium Chloride 1,000 ml @ 1,000 mls/hr Q1H IV ; Start 08/27/19 at 09:40; Stop 08/27/19 at 10:39 Albuterol/ Ipratropium (Duoneb) 3 ml 1X ONCE NEB ; Start 08/27/19 at 09:45; Stop 08/27/19 at 09:46; Status DC Methylprednisolone Sodium Succinate (SOLU-Medrol 125MG VIAL) 125 mg 1X ONCE IV ; Start 08/27/19 at 09:45; Stop 08/27/19 at 09:46; Status DC Sodium Chloride 1,000 ml @ 1,000 mls/hr 1X ONCE IV ; Start 08/27/19 at 09:45; Stop 08/27/19 at 10:44 Vancomycin HCl 250 ml @ 250 mls/hr 1X ONCE IV ; Start 08/27/19 at 10:00; Stop 08/27/19 at 10:59 Levofloxacin/ Dextrose 150 ml @ 100 mls/hr 1X ONCE IV ; Start 08/27/19 at 09:45; Stop 08/27/19 at 11:14; Status UNV Active Scripts Active Humalog (Insulin Lispro) 100 Unit/1 Ml Insuln.pen 0 Units SQ TIDWMEALS 14 Days Culturelle (Lactobacillus Rhamnosus Gg) 1 Each Cap.sprink 1 Cap PO BID 30 Days [Acetazolamide Sodium] 500 MG Vial 500 Mg IVP DAILY 14 Days Reported Furosemide 40 Mg Tablet 40 Mg PO DAILY K-Tab ER (Potassium Chloride) 20 Meq Tablet.er 40 Meq PO DAILY Depakote (Divalproex Sodium) 500 Mg Tablet.dr 1,250 Mg PO HS Xarelto (Rivaroxaban) 20 Mg Tablet 20 Mg PO DAILY Cavilon Durable Barrier (Dimethicone) 92 Gm Cream..g. 92 Gm TP DAILY Buspirone Hcl 5 Mg Tablet 2.5 Mg PO BID Tramadol Hcl 100 Mg Tab.er.24h 100 Mg PO Q6HRS Amlodipine Besylate 10 Mg Tablet 10 Mg PO DAILY Vitamin D (Cholecalciferol (Vitamin D3)) 5,000 Unit Capsule 5,000 Unit PO WEEKLY Tylenol Extra Strength (Acetaminophen) 500 Mg Tablet 2 Mg PO DAILY Trazodone Hcl 50 Mg Tablet 1 Tab PO QHS Risperdal (Risperidone) 1 Mg Tablet 1 Mg PO QHS Proventil Hfa Inhaler (Albuterol Sulfate) 6.7 Gm Hfa.aer.ad 1 Puff IH PRN Q4HRS PRN Potassium Chloride 20 Meq Tablet.er 20 Meq PO DAILY Miralax (Polyethylene Glycol 3350) 17 Gm Powd.pack 1 Packet PO DAILY PRN Pilocarpine Hcl 5 Mg Tablet 10 Mg PO TID Lyrica (Pregabalin) 75 Mg Capsule 1 Cap PO TID Levothyroxine Sodium 175 Mcg Tablet 1 Tab PO DAILY Divalproex Sodium Er (Divalproex Sodium) 500 Mg Tab.er.24h 1 Tab PO DAILY Colace (Docusate Sodium) 100 Mg Capsule 1 Cap PO BID Biofreeze (Menthol) 118 Ml Gel..ml. 118 Ml TP TID Albuterol Sulfate Neb Soln (Albuterol Sulfate) 2.5 Mg/3 Ml Vial.neb 1 Vial NEB PRN Q4HRS Allergies Allergies: Coded Allergies: Enprknt-Tdq-Vtz Reductase Inhibitor (Verified Allergy, Intermediate, 02/02/19) azithromycin (Verified Allergy, Intermediate, 02/02/19) budesonide (Verified Allergy, Intermediate, 02/02/19) ceftriaxone (Verified Allergy, Intermediate, 02/02/19) ciprofloxacin (Verified Allergy, Intermediate, 02/02/19) clindamycin (Verified Allergy, Intermediate, 02/02/19) formoterol (Verified Allergy, Intermediate, 02/02/19) latex (Verified Allergy, Intermediate, 02/02/19) lorazepam (Verified Allergy, Intermediate, 02/02/19) morphine (Verified Allergy, Intermediate, 02/02/19) mupirocin (Verified Allergy, Intermediate, 02/02/19) sulfur dioxide (Verified Allergy, Intermediate, 02/02/19) ROS Review of System unable to obtain due to medical condition General: YES: Fatigue PSYCHOLOGICAL ROS: YES: Memory difficulties Respiratory: YES: Shortness of breath Neurological: Yes Confusion Physical Exam Physical Exam EART: S1, S2 regular. ABDOMEN: Benign. EXTREMITIES: No edema, cyanosis. SKIN: Unremarkable. NEUROLOGIC: The patient is neurologically awake, nods appropriately, General: Alert, Cooperative, mod acute distress Heart: Regular rate, Normal S1, Normal S2 Lungs: Crackles Abdomen: Soft, No tenderness, Other (obese ) Extremities: Other (1+ bilateral LE edema ) Skin: Other (skin sores on chest. General: Cooperative, moderate distress HEENT: Atraumatic, EOMI Breasts: Not examined Abdomen: Soft, No tenderness PELVIC: Examination not indicated Extremities: No clubbing, No cyanosis Vitals Vitals Vital Signs Date Time Temp Pulse Resp B/P (MAP) Pulse Ox O2 Delivery O2 Flow Rate FiO2 08/27/19 09:40 98 BiPAP/CPAP Images Images Mitral Valve MV E Velocity 73.2cm/s MV DECEL TIME 171ms MV A Velocity 77.3cm/s E/A Ratio 0.9 TDI Lateral E' P. V 13.52cm/s Medial E' P. V 7.47cm/s E/Lateral E' 5.4 E/Medial E' 9.8 Tricuspid Valve TR P. Velocity 308cm/s RAP ESTIMATE 8mmHg TR Peak Gr. 44mmHg RVSP 52mmHg Pulmonary Vein S1 Velocity 51.9cm/s S2 Velocity 49.43cm/s D2 Velocity 49.4cm/s PVa duration 121msec LEFT VENTRICLE The left ventricle is normal size. There is mild to moderate concentric left ventricular hypertrophy. The left ventricular systolic function is normal. The Ejection Fraction is 55-60%. There is normal LV segmental wall motion. Transmitral Doppler flow pattern is Grade I-abnormal relaxation pattern. RIGHT VENTRICLE The right ventricle is normal size. There is normal right ventricular wall thickness. The right ventricular systolic function is normal. ATRIA The left atrium is borderline dilated. The right atrium is borderline dilated. The interatrial septum is intact with no evidence for an atrial septal defect or patent foramen ovale as noted on 2-D or Doppler imaging. AORTIC VALVE The aortic valve is calcified but opens well. Doppler and Color Flow revealed no significant aortic regurgitation. There is no significant aortic valvular stenosis. MITRAL VALVE The mitral valve is normal in structure and function. There is no evidence of mitral valve prolapse. There is no mitral valve stenosis. Doppler and Color-flow revealed trace mitral regurgitation. TRICUSPID VALVE The tricuspid valve is not well visualized. Doppler and Color Flow revealed trace tricuspid regurgitation with an estimated PAP of 52 mmHg. There is no tricuspid valve stenosis. PULMONIC VALVE The pulmonary valve is normal in structure and function. Doppler and Color Flow revealed trace pulmonic valvular regurgitation. GREAT VESSELS The aortic root is normal in size. The IVC is dilated and collapses >50% with inspiration. PERICARDIAL EFFUSION There is no evidence of significant pericardial effusion. Critical Notification Critical Value: No <Conclusion> The left ventricular systolic function is normal. The Ejection Fraction is 55-60%. There is normal LV segmental wall motion. Transmitral Doppler flow pattern is Grade I-abnormal relaxation pattern. Trace mitral regurgitation. Trace tricuspid regurgitation with an estimated PAP of 52 mmHg. There is no evidence of significant pericardial effusion. Signed by : Radha Francis, Electronically Approved : 08/24/2019 08:42:55 DICTATED and SIGNED BY: RADHA FRANCIS MD DATE: 08/23/19 1736 Indication: Altered mental status. Shortness of breath. . Technique: After intravenous contrast administration, CT imaging was performed of the chest. MIP reconstructions were obtained. Exposure: One or more of the following individualized dose reduction techniques were utilized for this examination: 1. Automated exposure control 2. Adjustment of the mA and/or kV according to patient size 3. Use of iterative reconstruction technique. Findings: Image degradation due to body habitus as well as some possible motion. No evidence of central pulmonary embolism. Suboptimal evaluation of the segmental pulmonary artery branches but no definite embolism. Aorta demonstrates some wall irregularity at the ascending segment likely pulsatility artifact. Ascending aorta measures about 3.3 cm. No gross aortic aneurysm or definite dissection. Heart size is enlarged. Coronary artery calcifications. No definite thyroid mass. No significant axillary lymph node enlargement. Enlarged hilar and mediastinal lymph nodes are identified. To some extent these were also seen on the previous CT chest of 02/03/2019 although that was performed without contrast limiting comparison. No pericardial effusion. No significant pleural effusion. Patchy opacities are identified in both lungs compatible with atelectasis and/or infiltrate, with a probable background of fibrosis. There is a greater degree of groundglass infiltrate with a patchy distribution throughout both lungs. 8mm noncalcified nodule in the left lower lobe, series 3, image 87 may have been present on prior study but had much fainter density at that time. Another subpleural nodule in the left lung base laterally, series 3,image 70 measures 8 mm and appears stable since the previous exam. Narrowing of the mainstem bronchi bilaterally, could be due to mass effect from lymph node enlargement. Scans to the upper abdomen are limited due to technique spleen is enlarged and appears similar to the prior study, measures about 16.5 cm length. Degenerative spondylosis. IMPRESSION: 1. No evidence of pulmonary embolism. Suboptimal visualization of the segmental pulmonary artery branches, however. 2. There are couple of left pulmonary nodules each measuring 8 mm. At least one of these appears stable, but the other appears more dense on today's exam. As per revised Fleischner guidelines, recommend follow-up CT chest in 3-6 months. 3. Development of mild groundglass opacities throughout both lungs, as well as some more patchy atelectasis/infiltrate, suggesting infectious/inflammatory etiology. 4. Hilar or mediastinal lymph node enlargement, to some extent was seen on the previous noncontrast exam of indeterminate etiology. 5. Splenomegaly, stable. Electronically signed by: Sukh Lopez MD (08/22/2019 11:33 AM) [facility] DICTATED and SIGNED BY: SUKH LOPEZ MD DATE: 08/22/19 1133 VTE Prophylaxis Ordered VTE Prophylaxis Devices: Yes VTE Pharmacological Prophylaxi: Yes Assessment/Plan Assessment/Plan impression Acute hypoxia - RECURRENT RESP FAILURE, HYPERCAPNIC, poor prognosis COGNITIVE Disability long-standing pulmonary HTN. BIPAP tricuspid regurgitation with an estimated PAP of 52 mmHg. uti empiric antibiotics Bipolar Disorder - with anxiety and depression. COPD 8mm noncalcified nodule in the left lower lobe, recent CTA OF CHEST Constipation - cont bowel regimen Diabetes-Type II - sliding scale in house GERD - cont meds High Cholesterol - cont statin Hypertension - cont meds Hypothyroid - on replacement AJ on CPAP - 9cm H2O QHS at SNF. ADMIT ADA diet PPX - lovenox DNR/DNI consult palliative care [facility] hospice intake [facility] Dispo - inpatient for acute hypoxia Comfort measures iv fentanyl 50mcg q 3 hrs prn pain or air hunger O2 SUPPORT D/W SISTER IN ER, [place] WITH HOSPICE INTAKE, consulted palliative care tavia 38 min cc time SHANTA ALBRECHT MD Aug 27, 2019 09:51
--- NOTE | 2019-08-27 09:59 | EKG ---
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
[2019-08-27] MEDS ORDERED: VANCOMYCIN 1GM IVPB FOR OMNI 250 ML IV ONE (10:00)
[2019-08-27 10:12] LABS: BASO % 1 % (0-3); EOS % 0 % (0-3); HEMATOCRIT 35.1 % (36.0-47.0); LYMPH # 1.6 x10^3/uL (1.0-4.8); LYMPH % 20 % (24-48); MEAN CORPUSCULAR HEMOGLOBIN 27 pg (25-35); MEAN CORPUSCULAR HGB CONC 31 g/dL (31-37); MEAN CORPUSCULAR VOLUME 88 fL (79-100); MONO # 0.7 x10^3/uL (0.0-1.1); MONO % 8 % (0-9); NEUT # 5.6 x10^3/uL (1.8-7.7); NEUT % 71 % (31-73); PLATELET COUNT 214 x10^3/uL (140-400); RED CELL DISTRIBUTION WIDTH 16.5 % (11.5-14.5)
[2019-08-27] MEDS ORDERED: DOXYCYCLINE HYCLATE 100 MG in IV DEXTROSE 5% 100ML 100 ML IV ONE (10:15)
[2019-08-27 10:20] LABS: BLOOD UREA NITROGEN 13 mg/dL (7-20); BUN/CREATININE RATIO 26 (6-20); CALCIUM 9.1 mg/dL (8.5-10.1); CARBON DIOXIDE 44 mmol/L (21-32); CHLORIDE 106 mmol/L (98-107); CREATININE 0.5 mg/dL (0.6-1.0); GFR 124.2; GLUCOSE 150 mg/dL (70-99); POTASSIUM 4.4 mmol/L (3.5-5.1); SODIUM 148 mmol/L (136-145)
[2019-08-27] MEDS ORDERED: ALBUTEROL SULFATE 2.5 MG/3 ML NEBU. NEB PRN (10:30)
[2019-08-27] MEDS ORDERED: POLYETHYLENE GLYCOL 3350 17 GM PACKET. PO PRN (10:30)
[2019-08-27] MEDS ORDERED: fentaNYL PF VIAL 100 MCG/2 ML VIAL IV PRN (10:30)
[2019-08-27 10:32] LABS: PROTHROMBIN TIME PATIENT 15.4 SEC (11.7-14.0)
[2019-08-27 10:33] LABS: ALBUMIN 2.1 g/dL (3.4-5.0); ALBUMIN/GLOBULIN RATIO 0.4 (1.0-1.7); ALK PHOS 79 U/L (46-116); ALT (SGPT) 12 U/L (14-59); AST (SGOT) 17 U/L (15-37); TOTAL BILIRUBIN 0.3 mg/dL (0.2-1.0); TOTAL PROTEIN 6.8 g/dL (6.4-8.2)
--- NOTE | 2019-08-27 10:49 | RAD ---
PORTABLE CHEST 1V History: Shortness of breath Comparison: August 22, [address] Findings: Vascular engorgement. Bilateral interstitial and alveolar opacities. Small bilateral pleural effusions. Portable technique accentuates cardiac size. No pneumothorax. Right hilar fullness. Bilateral glenohumeral DJD. Impression: 1. Bilateral interstitial and alveolar opacities, may indicate pulmonary edema. 2. Small bilateral layering pleural effusions. 3. Right hilar fullness compatible with previously seen lymphadenopathy, unchanged. Electronically signed by: Darshan Pratt DO (08/27/2019 10:46 AM) [facility]
[2019-08-27] MEDS ORDERED: busPIRone 5 MG TABLET. PO SCH (12:00)
[2019-08-27] MEDS ORDERED: ACETAMINOPHEN 500 MG TABLET PO SCH (12:00)
[2019-08-27] MEDS ORDERED: DOCUSATE SODIUM 100 MG CAPSULE. PO SCH (12:00)
[2019-08-27] MEDS ORDERED: LACTOBACILLUS RHAMNOSUS GG 1 CAPSULE. PO SCH (12:00)
[2019-08-27] MEDS ORDERED: FUROSEMIDE 40 MG TABLET. PO SCH (12:00)
[2019-08-27] MEDS ORDERED: amLODIPine BESYLATE 10 MG TABLET PO SCH (12:00)
[2019-08-27] MEDS ORDERED: traMADol 50 MG TABLET PO SCH (12:00)
[2019-08-27] MEDS ORDERED: POTASSIUM CHLORIDE 20 MEQ TABLET.ER. PO SCH (12:00)
[2019-08-27] MEDS ORDERED: DIVALPROEX EXTENDED RELEASE 500 MG TAB.ER.24H. PO SCH (12:00)
[2019-08-27] MEDS ORDERED: LEVOTHYROXINE 175 MCG TABLET PO SCH (12:00)
--- NOTE | 2019-08-27 12:52 | PHYS DOC ---
Past Medical History Past Medical History: Anxiety, Arthritis, Bipolar, CHF, Constipation, COPD, Depression, Diabetes-Type II, GERD, High Cholesterol, Hypertension, Hypothyroid, Pneumonia, UTI Additional Past Medical Histor: BIPOLAR, MANIAC, AJ, OA, HOME OXYGEN 2 LNC Past Surgical History: No Surgical History Alcohol Use: None Drug Use: None Adult General Chief Complaint Chief Complaint: DYSPNEA/RESPIRATOY DISTRESS HPI HPI Patient is a 64 year old female patient resident of shelter with history of COPD and CHF on home oxygen who discharged from the hospital yesterday brought in via EMS because of shortness of breath. Patient had O2 sat of 65% with fever of 102. Patient is able to tell her name but unable to give more history. Patient is DNR. Patient had O2 sat of 75% on 6 L of oxygen and started on BiPAP at arrival to ER. Review of Systems Review of Systems Unable to obtain Current Medications Current Medications Current Medications Medications (Trade) Dose Ordered Sig/Holden Start Time Stop Time Status Last Admin Dose Admin Sodium Chloride 1,000 ml @ 1,000 mls/hr Q1H 08/27/19 09:40 08/27/19 10:39 DC 08/27/19 10:55 1,000 MLS/HR Allergies Allergies Allergies Coded Allergies Type Severity Reaction Last Updated Verified Toekvwe-Bys-Rii Reductase Inhibitor Allergy Intermediate 02/02/19 Yes azithromycin Allergy Intermediate 02/02/19 Yes budesonide Allergy Intermediate 02/02/19 Yes ceftriaxone Allergy Intermediate 02/02/19 Yes ciprofloxacin Allergy Intermediate 02/02/19 Yes clindamycin Allergy Intermediate 02/02/19 Yes formoterol Allergy Intermediate 02/02/19 Yes latex Allergy Intermediate 02/02/19 Yes lorazepam Allergy Intermediate 02/02/19 Yes morphine Allergy Intermediate 02/02/19 Yes mupirocin Allergy Intermediate 02/02/19 Yes sulfur dioxide Allergy Intermediate 02/02/19 Yes Physical Exam Physical Exam Constitutional: Well nourished, moderate distress, non-toxic appearance, morbidly obese, febrile with temperature of 102 axillary. [] HENT: Normocephalic, atraumatic. Eyes: PERRLA, EOMI, conjunctiva normal, no discharge. [] Neck: Normal range of motion, no tenderness, supple, no stridor. [] Cardiovascular:Heart rate regular rhythm, no murmur [] Lungs & Thorax: Symmetric distress with decrease of air movement bilaterally Abdomen: Bowel sounds normal, soft, no tenderness, no masses, no pulsatile ma sses. [] Skin: Warm, dry, no erythema, no rash. [] Extremities: No obvious deformity Neurologic: Alert, no obvious focal neuro deficit Psychologic: Unable to evaluate Current Patient Data Vital Signs Vital Signs Date Time Temp Pulse Resp B/P (MAP) Pulse Ox O2 Delivery O2 Flow Rate FiO2 08/27/19 09:40 98 BiPAP/CPAP EKG EKG EKG interpreted by me. EKG at 0 949 showed normal sinus rhythm at rate of 94, abnormal left axis deviation, left anterior fascicular block, abnormal T waves in anteroseptal leads, no acute ST and T-wave elevation. Radiology/Procedures Radiology/Procedures [][facility] [address] [place] [address] IMAGING REPORT Signed PATIENT: ROGE RAM ACCOUNT: [id number] : 1955 LOCATION: [address] [place] [address] AGE: 64 SEX: F EXAM STATUS: ADM IN ORD. PHYSICIAN: FLORENCIA PATRICIO MD REASON: sob PROCEDURE: PORTABLE CHEST 1V PORTABLE CHEST 1V History: Shortness of breath Comparison: August 22, [address] Findings: Vascular engorgement. Bilateral interstitial and alveolar opacities. Small bilateral pleural effusions. Portable technique accentuates cardiac size. No pneumothorax. Right hilar fullness. Bilateral glenohumeral DJD. Impression: 1. Bilateral interstitial and alveolar opacities, may indicate pulmonary edema. 2. Small bilateral layering pleural effusions. 3. Right hilar fullness compatible with previously seen lymphadenopathy, unchanged. Electronically signed by: Darshan Pratt DO (08/27/2019 10:46 AM) [facility] DICTATED and SIGNED BY: DARSHAN PRATT DO DATE: 08/27/19 1046 Course & Med Decision Making Course & Med Decision Making Pertinent Labs and Imaging studies reviewed. (See chart for details) Evaluation of patient in ER showed 64-year-old female patient discharged from hospital yesterday and brought in because of fever and hypoxia. Sepsis protocol was started with IV fluid and antibiotic because of hypoxia and fever after normal lactic acid and chest x-ray with sign of CHF IV fluid was stopped. Patient requiring admission for further evaluation and treatment. Discussed with Dr. Francis who is in agreement with admission. Discussed findings and plan with patient and family, who acknowledge understanding and agreement. 1100:Patient's sister who has DPOA requesting no treatment and hospice admission but later on she agreed to give antibiotic. Waiting for hospice staff to evaluate the patient for possible placement in hospice care. Dragon Disclaimer Dragon Disclaimer This electronic medical record was generated, in whole or in part, using a voice recognition dictation system. Departure Departure Impression: Primary Impression: Acute respiratory distress Additional Impressions: Hypoxia Fever and chills Pulmonary edema Elevated troponin CHF (congestive heart failure) Hypernatremia Morbid obesity DNR (do not resuscitate) Disposition: 09 ADMITTED INPATIENT (at 0 949) Admitting Physician: ELVIRA (Dr. Francis accepted admission at 0 948) Condition: GUARDED Referrals: JASMYNE DAVID MD (PCP) Critical Care Time Critical care time was 50 minutes exclusive of procedures. Problem Qualifiers Additional Impressions: Pulmonary edema Chronicity: acute Qualified Codes: J81.0 - Acute pulmonary edema CHF (congestive heart failure) Heart failure type: unspecified Heart failure chronicity: unspecified Qualified Codes: I50.9 - Heart failure, unspecified FLORENCIA PATRICIO MD Aug 27, 2019 12:52
[2019-08-27] MEDS ORDERED: PILOCARPINE 5 MG TABLET. PO SCH (14:00)
[2019-08-27] MEDS ORDERED: PREGABALIN 75 MG CAPSULE PO SCH (14:00)
[2019-08-27] MEDS ORDERED: METHYL SALICYLATE/MENTHOL TOPICAL OINTMENT 57GM TUBE. TP SCH (14:00)
--- NOTE | 2019-08-27 15:17 | PDOC3 ---
Discharge Summary Date of Admission: Aug 27, 2019 Date of Discharge: Aug 27, 2019 Follow-Up: 1-2 days Admitting Diagnosis comment: VTE Prophylaxis Ordered VTE Prophylaxis Devices: Yes VTE Pharmacological Prophylaxi: Yes DISCHARGE DX Acute hypoxia - RECURRENT RESP FAILURE, HYPERCAPNIC, poor prognosis COGNITIVE Disability long-standing pulmonary HTN. BIPAP tricuspid regurgitation with an estimated PAP of 52 mmHg. uti empiric antibiotics Bipolar Disorder - with anxiety and depression. COPD 8mm noncalcified nodule in the left lower lobe, recent CTA OF CHEST Constipation - cont bowel regimen Diabetes-Type II - sliding scale in house GERD - cont meds High Cholesterol - cont statin Hypertension - cont meds Hypothyroid - on replacement AJ on CPAP - 9cm H2O QHS at [facility]. ADMIT ADA diet PPX - lovenox DNR/DNI consult palliative care [facility] hospice intake [facility] Dispo - inpatient for acute hypoxia Comfort measures iv fentanyl 50mcg q 3 hrs prn pain or air hunger O2 SUPPORT APPEARS APPROPRIATE FOR HOSPICE CARE IN MY JUDGMENT D/W SISTER IN ER, [place] WITH HOSPICE INTAKE, consulted palliative care [facility] IS ACCEPTING HOSPICE 38 min cc time FINAL DIAGNOSIS Problems Medical Problems: (1) Acute respiratory distress Status: Acute (2) Hypoxia Status: Acute (3) Pulmonary edema Status: Acute Brief Hospital Course Ms. Hartley is a 64 old [sex] who presented with [ ACUTE RESPIRATORY FAILURE ] CONDITION AT DISCHARGE: Comment (GUARDED PROGNOSIS) Discharge Medications Current Medications Acetaminophen (Tylenol) 1,000 mg 1X ONCE PO Last administered on 08/27/19at 10:28; Start 08/27/19 at 09:45; Stop 08/27/19 at 09:46; Status DC Sodium Chloride 1,000 ml @ 1,000 mls/hr Q1H IV Last administered on 08/27/19at 10:55; Start 08/27/19 at 09:40; Stop 08/27/19 at 10:39; Status DC Albuterol/ Ipratropium (Duoneb) 3 ml 1X ONCE NEB Last administered on 08/27/19at 09:51; Start 08/27/19 at 09:45; Stop 08/27/19 at 09:46; Status DC Methylprednisolone Sodium Succinate (SOLU-Medrol 125MG VIAL) 125 mg 1X ONCE IV Last administered on 08/27/19at 10:28; Start 08/27/19 at 09:45; Stop 08/27/19 at 09:46; Status DC Sodium Chloride 1,000 ml @ 1,000 mls/hr 1X ONCE IV ; Start 08/27/19 at 09:45; Stop 08/27/19 at 10:44; Status DC Vancomycin HCl 250 ml @ 250 mls/hr 1X ONCE IV ; Start 08/27/19 at 10:00; Stop 08/27/19 at 11:08; Status DC Levofloxacin/ Dextrose 150 ml @ 100 mls/hr 1X ONCE IV ; Start 08/27/19 at 09:45; Stop 08/27/19 at 11:14; Status UNV Doxycycline Hyclate 100 mg/ Dextrose 100 ml @ 50 mls/hr 1X ONCE IV Last administered on 08/27/19at 10:51; Start 08/27/19 at 10:15; Stop 08/27/19 at 12:14; Status DC Fentanyl Citrate (Fentanyl 2ml Vial) 50 mcg PRN Q3HRS PRN IV SEVERE PAIN 7-10 Last administered on 08/27/19at 12:11; Start 08/27/19 at 10:30 Doxycycline Hyclate 100 mg/ Dextrose 100 ml @ 50 mls/hr BID IV ; Start 08/27/19 at 21:00 Acetaminophen (Tylenol) 1,000 mg DAILY PO ; Start 08/27/19 at 12:00 Albuterol Sulfate (Ventolin Neb Soln) 2.5 mg PRN Q4HRS PRN NEB SHORTNESS OF BREATH; Start 08/27/19 at 10:30 Amlodipine Besylate (Norvasc) 10 mg DAILY PO ; Start 08/27/19 at 12:00 Buspirone HCl (Buspar) 2.5 mg BID PO ; Start 08/27/19 at 12:00 Vitamin D (Vitamin D3) 5,000 unit WEEKLY PO ; Start 08/29/19 at 09:00 Divalproex Sodium (Depakote Er) 1,250 mg QHS PO ; Start 08/27/19 at 21:00 Divalproex Sodium (Depakote Er) 500 mg DAILY PO ; Start 08/27/19 at 12:00 Docusate Sodium (Colace) 100 mg BID PO ; Start 08/27/19 at 12:00 Furosemide (Lasix) 40 mg DAILY PO ; Start 08/27/19 at 12:00 Lactobacillus Rhamnosus (Culturelle) 1 cap BID PO ; Start 08/27/19 at 12:00 Levothyroxine Sodium (Synthroid) 175 mcg DAILY06 PO ; Start 08/27/19 at 12:00 Pilocarpine HCl (Salagen) 10 mg TID PO ; Start 08/27/19 at 14:00 Polyethylene Glycol (miraLAX PACKET) 17 gm DAILY PRN PO CONSTIPATION; Start 08/27/19 at 10:30 Pregabalin (Lyrica) 75 mg TID PO ; Start 08/27/19 at 14:00 Risperidone (RisperDAL) 1 mg QHS PO ; Start 08/27/19 at 21:00 Trazodone HCl (Desyrel) 50 mg QHS PO ; Start 08/27/19 at 21:00 Non-Formulary Medication (Dimethicone (Cavilon Durable Barrier)) 92 gm DAILY TP ; Start 08/28/19 at 09:00; Status UNV Multi-Ingredient Ointment (Analgesic [place]) 1 kashif TID TP ; Start 08/27/19 at 14:00 Potassium Chloride (Klor-Con) 20 meq DAILYWBKFT PO ; Start 08/27/19 at 12:00 Rivaroxaban (Xarelto) 20 mg DAILYWSUP PO ; Start 08/27/19 at 17:00 Tramadol HCl (Ultram) 100 mg Q6HRS PO ; Start 08/27/19 at 12:00 Active Scripts Active Humalog (Insulin Lispro) 100 Unit/1 Ml Insuln.pen 0 Units SQ TIDWMEALS 14 Days Culturelle (Lactobacillus Rhamnosus Gg) 1 Each Cap.sprink 1 Cap PO BID 30 Days [Acetazolamide Sodium] 500 MG Vial 500 Mg IVP DAILY 14 Days Reported Furosemide 40 Mg Tablet 40 Mg PO DAILY K-Tab ER (Potassium Chloride) 20 Meq Tablet.er 40 Meq PO DAILY Depakote (Divalproex Sodium) 500 Mg Tablet.dr 1,250 Mg PO HS Xarelto (Rivaroxaban) 20 Mg Tablet 20 Mg PO DAILY Cavilon Durable Barrier (Dimethicone) 92 Gm Cream..g. 92 Gm TP DAILY Buspirone Hcl 5 Mg Tablet 2.5 Mg PO BID Tramadol Hcl 100 Mg Tab.er.24h 100 Mg PO Q6HRS Amlodipine Besylate 10 Mg Tablet 10 Mg PO DAILY Vitamin D (Cholecalciferol (Vitamin D3)) 5,000 Unit Capsule 5,000 Unit PO WEEKLY Tylenol Extra Strength (Acetaminophen) 500 Mg Tablet 2 Mg PO DAILY Trazodone Hcl 50 Mg Tablet 1 Tab PO QHS Risperdal (Risperidone) 1 Mg Tablet 1 Mg PO QHS Proventil Hfa Inhaler (Albuterol Sulfate) 6.7 Gm Hfa.aer.ad 1 Puff IH PRN Q4HRS PRN Potassium Chloride 20 Meq Tablet.er 20 Meq PO DAILY Miralax (Polyethylene Glycol 3350) 17 Gm Powd.pack 1 Packet PO DAILY PRN Pilocarpine Hcl 5 Mg Tablet 10 Mg PO TID Lyrica (Pregabalin) 75 Mg Capsule 1 Cap PO TID Levothyroxine Sodium 175 Mcg Tablet 1 Tab PO DAILY Divalproex Sodium Er (Divalproex Sodium) 500 Mg Tab.er.24h 1 Tab PO DAILY Colace (Docusate Sodium) 100 Mg Capsule 1 Cap PO BID Biofreeze (Menthol) 118 Ml Gel..ml. 118 Ml TP TID Albuterol Sulfate Neb Soln (Albuterol Sulfate) 2.5 Mg/3 Ml Vial.neb 1 Vial NEB PRN Q4HRS Vital Signs Vital Signs Date Time Temp Pulse Resp B/P (MAP) Pulse Ox O2 Delivery O2 Flow Rate FiO2 08/27/19 14:11 97 BiPAP/CPAP 08/27/19 12:37 88 18 138/67 (90) 08/27/19 12:11 6.0 08/27/19 09:45 102.0 102.0 Labs Laboratory Tests Test 08/27/19 09:50 White Blood Count 8.0 x10^3/uL (4.0-11.0) Red Blood Count 4.00 x10^6/uL (3.50-5.40) Hemoglobin 11.0 g/dL (12.0-15.5) Hematocrit 35.1 % (36.0-47.0) Mean Corpuscular Volume 88 fL (79-100) Mean Corpuscular Hemoglobin 27 pg (25-35) Mean Corpuscular Hemoglobin Concent 31 g/dL (31-37) Red Cell Distribution Width 16.5 % (11.5-14.5) Platelet Count 214 x10^3/uL (140-400) Neutrophils (%) (Auto) 71 % (31-73) Lymphocytes (%) (Auto) 20 % (24-48) Monocytes (%) (Auto) 8 % (0-9) Eosinophils (%) (Auto) 0 % (0-3) Basophils (%) (Auto) 1 % (0-3) Neutrophils # (Auto) 5.6 x10^3/uL (1.8-7.7) Lymphocytes # (Auto) 1.6 x10^3/uL (1.0-4.8) Monocytes # (Auto) 0.7 x10^3/uL (0.0-1.1) Eosinophils # (Auto) 0.0 x10^3/uL (0.0-0.7) Basophils # (Auto) 0.0 x10^3/uL (0.0-0.2) Prothrombin Time 15.4 SEC (11.7-14.0) Prothromb Time International Ratio 1.3 (0.8-1.1) Sodium Level 148 mmol/L (136-145) Potassium Level 4.4 mmol/L (3.5-5.1) Chloride Level 106 mmol/L (98-107) Carbon Dioxide Level 44 mmol/L (21-32) Anion Gap (6-14) Blood Urea Nitrogen 13 mg/dL (7-20) Creatinine 0.5 mg/dL (0.6-1.0) Estimated GFR (Cockcroft-Gault) 124.2 BUN/Creatinine Ratio 26 (6-20) Glucose Level 150 mg/dL (70-99) Lactic Acid Level 1.1 mmol/L (0.4-2.0) Calcium Level 9.1 mg/dL (8.5-10.1) Total Bilirubin 0.3 mg/dL (0.2-1.0) Aspartate Amino Transf (AST/SGOT) 17 U/L (15-37) Alanine Aminotransferase (ALT/SGPT) 12 U/L (14-59) Alkaline Phosphatase 79 U/L (46-116) Troponin I Quantitative 0.133 ng/mL (0.000-0.055) VG-Tbu-C-Type Natriuretic Peptide 3084 pg/mL (0-124) Total Protein 6.8 g/dL (6.4-8.2) Albumin 2.1 g/dL (3.4-5.0) Albumin/Globulin Ratio 0.4 (1.0-1.7) Laboratory Tests Test 08/27/19 09:50 White Blood Count 8.0 x10^3/uL (4.0-11.0) Red Blood Count 4.00 x10^6/uL (3.50-5.40) Hemoglobin 11.0 g/dL (12.0-15.5) Hematocrit 35.1 % (36.0-47.0) Mean Corpuscular Volume 88 fL (79-100) Mean Corpuscular Hemoglobin 27 pg (25-35) Mean Corpuscular Hemoglobin Concent 31 g/dL (31-37) Red Cell Distribution Width 16.5 % (11.5-14.5) Platelet Count 214 x10^3/uL (140-400) Neutrophils (%) (Auto) 71 % (31-73) Lymphocytes (%) (Auto) 20 % (24-48) Monocytes (%) (Auto) 8 % (0-9) Eosinophils (%) (Auto) 0 % (0-3) Basophils (%) (Auto) 1 % (0-3) Neutrophils # (Auto) 5.6 x10^3/uL (1.8-7.7) Lymphocytes # (Auto) 1.6 x10^3/uL (1.0-4.8) Monocytes # (Auto) 0.7 x10^3/uL (0.0-1.1) Eosinophils # (Auto) 0.0 x10^3/uL (0.0-0.7) Basophils # (Auto) 0.0 x10^3/uL (0.0-0.2) Prothrombin Time 15.4 SEC (11.7-14.0) Prothromb Time International Ratio 1.3 (0.8-1.1) Sodium Level 148 mmol/L (136-145) Potassium Level 4.4 mmol/L (3.5-5.1) Chloride Level 106 mmol/L (98-107) Carbon Dioxide Level 44 mmol/L (21-32) Anion Gap (6-14) Blood Urea Nitrogen 13 mg/dL (7-20) Creatinine 0.5 mg/dL (0.6-1.0) Estimated GFR (Cockcroft-Gault) 124.2 BUN/Creatinine Ratio 26 (6-20) Glucose Level 150 mg/dL (70-99) Lactic Acid Level 1.1 mmol/L (0.4-2.0) Calcium Level 9.1 mg/dL (8.5-10.1) Total Bilirubin 0.3 mg/dL (0.2-1.0) Aspartate Amino Transf (AST/SGOT) 17 U/L (15-37) Alanine Aminotransferase (ALT/SGPT) 12 U/L (14-59) Alkaline Phosphatase 79 U/L (46-116) Troponin I Quantitative 0.133 ng/mL (0.000-0.055) YJ-Lqd-N-Type Natriuretic Peptide 3084 pg/mL (0-124) Total Protein 6.8 g/dL (6.4-8.2) Albumin 2.1 g/dL (3.4-5.0) Albumin/Globulin Ratio 0.4 (1.0-1.7) Allergies Allergies Coded Allergies Type Severity Reaction Last Updated Verified Ttqulln-Ptj-Yxw Reductase Inhibitor Allergy Intermediate 02/02/19 Yes azithromycin Allergy Intermediate 02/02/19 Yes budesonide Allergy Intermediate 02/02/19 Yes ceftriaxone Allergy Intermediate 02/02/19 Yes ciprofloxacin Allergy Intermediate 02/02/19 Yes clindamycin Allergy Intermediate 02/02/19 Yes formoterol Allergy Intermediate 02/02/19 Yes latex Allergy Intermediate 02/02/19 Yes lorazepam Allergy Intermediate 02/02/19 Yes morphine Allergy Intermediate 02/02/19 Yes mupirocin Allergy Intermediate 02/02/19 Yes sulfur dioxide Allergy Intermediate 02/02/19 Yes Disposition/Orders: D/C to Home w/ Hospice SHANTA ALBRECHT MD Aug 27, 2019 15:17
--- NOTE | 2019-08-27 15:22 | SNU/HH DC ---
DISCHARGE ORDERS DISCHARGE INFORMATION: FINAL DIAGNOSIS Problems Medical Problems: (1) Acute respiratory distress Status: Acute (2) Hypoxia Status: Acute (3) Pulmonary edema Status: Acute CONDITION ON DISCHARGE: Guarded CODE STATUS: Code Status: DNR/DNI INTERMEDIATE: SNF STAY <30 DAYS: Yes HOSPICE: HOSPICE: Yes HOSPICE EVAL & TREAT: Yes POST DISCHARGE ORDERS: ACTIVITY ORDERS: Activity as tolerated WEIGHT BEARING STATUS: As tolerated DIET AFTER DISCHARGE: Cardiac CHECKS AFTER DISCHARGE: CHECKS AFTER DISCHARGE: Check blood press - daily, Check blood sugar, ac/hs, Check your Temp as needed, Weigh Yourself Daily DISCHARGE MEDICATIONS: Home Meds Active Scripts Insulin Lispro (HUMALOG) 100 Unit/1 Ml Insuln.pen, 0 UNITS SQ TIDWMEALS for glucose for 14 Days, #1 EACH Prov:SHANTA ALBRECHT MD 07/22/19 Lactobacillus Rhamnosus Gg (CULTURELLE) 1 Each Cap.sprink, 1 CAP PO BID for supplement for 30 Days, #60 CAP Prov:SHANTA ALBRECHT MD 07/22/19 Reported Medications Furosemide (FUROSEMIDE) 40 Mg Tablet, 40 MG PO DAILY for CHF, TAB 08/26/19 Divalproex Sodium (DEPAKOTE) 500 Mg Tablet.dr, 1250 MG PO HS for bipolar disorder, TAB 08/22/19 Rivaroxaban (XARELTO) 20 Mg Tablet, 20 MG PO DAILY for chronic embolism & thrombosis, TAB 08/22/19 Dimethicone (CAVILON DURABLE BARRIER) 92 Gm Cream..g., 92 GM TP DAILY for scabs, EACH 08/22/19 Buspirone Hcl (BUSPIRONE HCL) 5 Mg Tablet, 2.5 MG PO BID for anxiety, TAB 08/22/19 Tramadol Hcl (TRAMADOL HCL) 100 Mg Tab.er.24h, 100 MG PO Q6HRS for pain, TAB 08/22/19 Amlodipine Besylate (AMLODIPINE BESYLATE) 10 Mg Tablet, 10 MG PO DAILY for htn, TAB 08/22/19 Cholecalciferol (Vitamin D3) (Vitamin D) 5,000 Unit Capsule, 5000 UNIT PO WEEKLY for vit d deficiency, CAP 02/02/19 Acetaminophen (TYLENOL EXTRA STRENGTH) 500 Mg Tablet, 2 MG PO DAILY for pain, TAB 02/02/19 Trazodone Hcl (TRAZODONE HCL) 50 Mg Tablet, 1 TAB PO QHS for depression, #30 TAB 1 Refill 02/02/19 Risperidone (RISPERDAL) 1 Mg Tablet, 1 MG PO QHS for MOOD STABILIZER, TAB 02/02/19 Potassium Chloride (POTASSIUM CHLORIDE) 20 Meq Tablet.er, 20 MEQ PO DAILY for hypokalemia, TAB.SR 02/02/19 Polyethylene Glycol 3350 (MIRALAX) 17 Gm Powd.pack, 1 PACKET PO DAILY PRN for CONSTIPATION, #30 PACKET 3 Refills 02/02/19 Pilocarpine Hcl (PILOCARPINE HCL) 5 Mg Tablet, 10 MG PO TID for dry mouth, TAB 02/02/19 Pregabalin (LYRICA) 75 Mg Capsule, 1 CAP PO TID for neuropathy, #60 CAP 1 Refill 02/02/19 Levothyroxine Sodium (LEVOTHYROXINE SODIUM) 175 Mcg Tablet, 1 TAB PO DAILY for hypothyroid, #30 TAB 5 Refills 02/02/19 Divalproex Sodium (DIVALPROEX SODIUM ER) 500 Mg Tab.er.24h, 1 TAB PO DAILY for bipolar , #60 TAB 02/02/19 Docusate Sodium (COLACE) 100 Mg Capsule, 1 CAP PO BID for constipation, #30 CAP 02/02/19 Menthol (BIOFREEZE) 118 Ml Gel..ml., 118 ML TP TID for elisha shoulder pain, EACH 02/02/19 Albuterol Sulfate (ALBUTEROL SULFATE NEB SOLN) 2.5 Mg/3 Ml Vial.neb, 1 VIAL NEB PRN Q4HRS for copd, #50 VIAL 02/02/19 Discontinued Reported Medications Potassium Chloride (K-Tab ER) 20 Meq Tablet.er, 40 MEQ PO DAILY for supplement, TAB.SR 08/26/19 Albuterol Sulfate (PROVENTIL HFA INHALER) 6.7 Gm Hfa.aer.ad, 1 PUFF IH PRN Q4HRS PRN for FOR ASTHMA, INHALER 0 Refills 02/02/19 Loratadine (LORATADINE) 10 Mg Tablet, 1 TAB PO DAILY for allergies, #30 TAB 5 Refills 02/02/19 Discontinued Scripts [acetaZOLAMIDE SODIUM INJ] 500 MG VIAL No Conflict Check, 500 MG IVP DAILY for see orders for 14 Days, #14 EACH Prov:SHANTA ALBRECHT MD 07/22/19 SHANTA ALBRECHT MD Aug 27, 2019 15:22
--- NOTE | 2019-08-27 16:21 | NUR ---
SW spoke with pt's sister and assisted in setting up hospice with [facility]. Pt to dc back to [facility] post acute with hospice. SW phoned and faxed orders to [facility] and [facility]. Pt and pt's sister agreeable. RN to call [facility].
[2019-08-27 16:37] VITALS: BP 136/73
[2019-08-27] MEDS ORDERED: RIVAROXABAN 10 MG TABLET. PO SCH (17:00)
[2019-08-27] MEDS ORDERED: traZODone 50 MG TABLET. PO SCH (21:00)
[2019-08-27] MEDS ORDERED: risperiDONE 1 MG TABLET. PO SCH (21:00)
[2019-08-27] MEDS ORDERED: DIVALPROEX EXTENDED RELEASE 250 MG TAB.ER.24H. PO SCH (21:00)
[2019-08-27] MEDS ORDERED: DOXYCYCLINE HYCLATE 100 MG in IV DEXTROSE 5% 100ML 100 ML IV SCH (21:00)
[2019-08-28] MEDS ORDERED: DIMETHICONE TP SCH (09:00)
[2019-08-29] MEDS ORDERED: CHOLECALCIFEROL (VITAMIN D3) 5,000 UNIT CAPSULE PO SCH (09:00)
== END 2019-08-27 16:57 | disposition home or self-care (01) ==
LOC: ER 09:35 → UNDOADMIN 09:44 → 6 SOUTH 09:44 → ER 16:57
DX: I11.0 Hypertensive heart disease with heart failure (principal); R06.03 Acute respiratory distress; R09.02 Hypoxemia; R50.9 Fever, unspecified; I50.1 Left ventricular failure, unspecified; E87.0 Hyperosmolality and hypernatremia; Z66 Do not resuscitate; E66.01 Morbid (severe) obesity due to excess calories; Z68.41 Body mass index [BMI] 40.0-44.9, adult; E03.9 Hypothyroidism, unspecified; E78.00 Pure hypercholesterolemia, unspecified; E11.9 Type 2 diabetes mellitus without complications; F31.9 Bipolar disorder, unspecified; F41.9 Anxiety disorder, unspecified; G47.33 Obstructive sleep apnea (adult) (pediatric); I07.1 Rheumatic tricuspid insufficiency; J44.9 Chronic obstructive pulmonary disease, unspecified; K21.9 Gastro-esophageal reflux disease without esophagitis; M19.90 Unspecified osteoarthritis, unspecified site; Z79.899 Other long term (current) drug therapy; Z99.81 Dependence on supplemental oxygen; Z79.4 Long term (current) use of insulin; Z88.1 Allergy status to other antibiotic agents; Z88.8 Allergy status to other drugs, medicaments and biological substances; Z91.040 Latex allergy status; Z88.2 Allergy status to sulfonamides
CPT/HCPCS: 36415; 71045; 80053; 83605; 83880; 84484; 85025; 85610; 87040; 87205; 93005; 94640; 96365; 96366; 96375; 99291; J2930; J3010; J3490; J7030; J7620